=== PATIENT | male | born 1995 | race Caucasian/White ===

== ENCOUNTER 2022-06-22 16:12 | Inpatient (IN) ==
[2022-06-22 16:50] LABS: Basophils # (auto) 0.05 K/uL (0-0.2); Basophils % (auto) 0.6 %; Eosinophils # (auto) 0.05 K/uL (0-0.50); Eosinophils % (auto) 0.6 %; Hematocrit (blood only) 45.8 % (42.0-52.0); Hemoglobin 15.7 g/dl (14.0-18.0); Immature Granulocytes # (auto) 0.02 K/uL (0.01-0.20); Immature Granulocytes % (auto) 0.2 %; Lymphocytes # (auto) 2.71 K/uL (1.2-3.4); Lymphocytes % (auto) 31.6 %; Mean Corpuscular Hemoglobin 30.7 pg (25.0-34.0); Mean Corpuscular Hgb Conc 34.3 g/dL (32.0-36.0); Mean Corpuscular Volume 89.5 fL (80.0-100.0); Mean Platelet Volume 9.9 fL (9.4-12.4); Monocytes # (auto) 0.61 K/uL (0.11-0.59); Monocytes % (auto) 7.1 %; Neutrophils # (auto) 5.13 K/uL (1.40-6.50); Neutrophils % (auto) 59.9 %; Platelet Count 360 K/uL (130-400); RDW Coefficient of Variation 13.6 % (11.5-14.5); RDW Standard Deviation 44.1 fL (36.4-46.3); Red Blood Count 5.12 M/uL (4.70-6.10); White Blood Count 8.57 K/ul (4.8-10.8)
[2022-06-22 16:54] LABS: Appearance Urine Clear (Clear); Bilirubin Urine Negative (Negative); Blood Urine Negative (Negative); Color Urine Yellow; Glucose Urine UA Negative (Negative); Ketones Urine Negative (Negative); Leukocyte Esterase Urine Negative (Negative); Nitrite Urine Negative (Negative); Protein Urine Negative (Negative); Urobilinogen Urine Negative (Negative)
[2022-06-22 17:39] LABS: Albumin Globulin Ratio 1.4 (0.9-2); Albumin Level 4.7 gm/dl (3.4-5.0); Bilirubin,Total 0.5 mg/dl (0.2-1.0); Calcium 9.5 mg/dl (8.5-10.1); Creatinine Clr Calc Pharmacy 175.9 ml/min; Est GFR (African American) 130.1 ml/min; Est GFR (Non-African American) 112.2 ml/min; Globulin 3.3 gm/dl (2.5-4.0); Potassium 3.9 mmol/L (3.5-5.1)
[2022-06-22 17:52] LABS: Amphetamines+Metham, Urine Neg (Neg); Barbiturates, Urine Neg (Neg); Benzodiazepine, Urine Neg (Neg); Cocaine, Urine Neg (Neg); MDMA (Ecstacy), Urine Neg (Neg); Methadone, Urine Neg (Neg); Opiate, Urine Neg (Neg); Phencyclidine, Urine Neg (Neg)
[2022-06-22 18:36] LABS: Acetaminophen < 3 ug/ml (10-30); Salicylate < 3.0 mg/dl (3.0-30)
--- NOTE | 2022-06-22 19:06 | Emergency Department Note ---
History of Present Illness General Chief complaint: Mental Health Evaluation Stated complaint: PSYCHIATRIC CARE Time Seen by Provider: 06/22/22 16:21 History of Present Illness Provider complaint: Mental health evaluation Onset (ago): month(s) 3 Maximum Pain Intensity: 3 27-year-old male presents emergency department for mental health evaluation. Patient reports he has been having more tactile hallucinations telling him to kill himself. Patient reports he feels like maggots are crawling underneath his skin and he keeps having to scratch his skin to peel his skin off. No access to any firearms. No drugs or alcohol. Patient reports he has a diagnosis of schizoaffective disorder and sees a mental health professional in [place] and has been hospitalized for mental health in [place]. Home Medications Medication Instructions Recorded Confirmed Type adalimumab 40 mg/0.8 mL 40 mg subcut .[id number] 03/26/21 06/22/22 History subcutaneous syringe kit (Humira) esomeprazole magnesium 40 mg 40 mg PO DAILY 03/26/21 04/23/21 History capsule,delayed release fluvoxamine 150 mg 300 mg PO HS 03/26/21 04/23/21 History capsule,extended release 24 hr lurasidone 40 mg tablet (Latuda) 40 mg PO PM 03/26/21 06/22/22 History lurasidone 60 mg tablet (Latuda) 120 mg PO PM 03/26/21 06/22/22 History cyclobenzaprine 10 mg tablet 10 mg PO TID PRN muscle spasm #15 04/21/21 04/23/21 Rx tabs naproxen 500 mg tablet 500 mg PO BID PRN pain #20 tabs 04/21/21 04/23/21 Rx benzonatate 100 mg capsule 100 mg PO TID PRN Cough 04/23/21 04/23/21 History etodolac 200 mg capsule 200 mg PO BID PRN pain #20 caps 04/23/21 04/23/21 Rx Fish Oil 1,000 mg PO 4XD 06/22/22 06/22/22 History Allergies Allergy/AdvReac Type Severity Reaction Status Date / Time azithromycin [From Zithromax] Allergy Intermediate Rash Verified 04/23/21 21:27 Past Med/Surg History Medical History Rheumatoid arthritis Schizoaffective disorder Surgical History No significant past surgical history Family History Other Back pain Social History Smoking Status: Never smoker Preferred Language: Barbadian marital status: Single current occupational status: student Feels Safe at Home: Yes Gender Identity: Male Physical Exam Vital Signs Vital Signs - 24 hr 06/22/22 16:14 Temperature 36.8 C Temperature Source Temporal Artery Scan Pulse Rate 80 Respiratory Rate 18 Blood Pressure 148/95 H Blood Pressure Mean 112 Pulse Oximetry 98 Oxygen Delivery Method Room Air Sepsis Recent Fever Within 48 Hours No Sepsis New/Unexplained Change in Mental Status No Sepsis Action Taken by Nursing No Action Required Physical Exam HENT: Exam performed. - Head: Normocephalic and atraumatic. EYES: Conjunctivae and EOM are normal. Right eye exhibits no discharge. Left eye exhibits no discharge. No scleral icterus. NECK: Normal range of motion. Neck supple. No JVD present. ABD: The abdomen is soft. There is no tenderness. NEURO: Motor and sensation grossly intact. SKIN: Skin is warm and dry. He is not diaphoretic. PSYCH: Bizarre affect. Suicidal ideation. Course Course 162: The patient was evaluated in room A5. A complete history and physical exam was performed 1904: Patient medically cleared. Awaiting psychiatric evaluation and placement. 2117: Patient admitted to 3 S. Medical Decision Making Laboratory Data Attestation: I reviewed the patient's lab results. 06/22/22 16:35 06/22/22 16:35 Lab Results 06/22/22 06/22/22 06/22/22 Range/Units 16:30 16:30 16:30 WBC (4.8-10.8) K/ul RBC (4.70-6.10) M/uL Hgb (14.0-18.0) g/dl Hct (42.0-52.0) % MCV (80.0-100.0) fL MCH (25.0-34.0) pg MCHC (32.0-36.0) g/dL RDW Std Deviation (36.4-46.3) fL RDW Coeff of Rene (11.5-14.5) % Plt Count (130-400) K/uL MPV (9.4-12.4) fL Immature Gran % (Auto) % Neut % (Auto) % Lymph % (Auto) % [place] % (Auto) % Eos % (Auto) % Baso % (Auto) % Neut # (Auto) (1.40-6.50) K/uL Lymph # (Auto) (1.2-3.4) K/uL [place] # (Auto) (0.11-0.59) K/uL Eos # (Auto) (0-0.50) K/uL Baso # (Auto) (0-0.2) K/uL Immature Gran # (Auto) (0.01-0.20) K/uL Sodium (136-145) mmol/L Potassium (3.5-5.1) mmol/L Chloride (98-107) mmol/L Carbon Dioxide (21-32) mmol/L Anion Gap (3-11) BUN (6-23) mg/dl Creatinine (0.6-1.4) mg/dl Est Cr Clr Drug Dosing ml/min Est GFR ( Amer) ml/min Est GFR (Non-Af Amer) ml/min BUN/Creatinine Ratio (10-20) Glucose (70-99(Fasting)) mg/dl Calcium (8.5-10.1) mg/dl Total Bilirubin (0.2-1.0) mg/dl AST (13-39) U/L ALT (7-52) U/L Alkaline Phosphatase (34-104) U/L Total Protein (6.0-8.3) gm/dl Albumin (3.4-5.0) gm/dl Globulin (2.5-4.0) gm/dl Albumin/Globulin Ratio (0.9-2) TSH (0.300-4.500) uIu/ml Urine Color Yellow Urine Appearance Clear (Clear) Urine pH 6.0 (4.5-7.5) Ur Specific [place] 1.010 (1.000-1.030) Urine Protein Negative (Negative) Urine Glucose (UA) Negative (Negative) Urine Ketones Negative (Negative) Urine Blood Negative (Negative) Urine Nitrite Negative (Negative) Urine Bilirubin Negative (Negative) Urine Urobilinogen Negative (Negative) Ur Leukocyte Esterase Negative (Negative) Salicylates (3.0-30) mg/dl Urine Opiates Screen Neg (Neg) Ur Methadone, Qual Neg (Neg) Acetaminophen (10-30) ug/ml Urine Barbiturates Neg (Neg) Ur Phencyclidine (PCP) Neg (Neg) U Amphetamin/Meth Scrn Neg (Neg) MDMA (Ecstasy) Screen Neg (Neg) U Benzodiazepines Scrn Neg (Neg) Ur Cocaine Metabolite Neg (Neg) U Marijuana (THC) Screen Neg (Neg) Ethyl Alcohol mg/dL (<10.0) mg/dl SARS-CoV-2, RNA, NAAT NEGATIVE (NEGATIVE) 06/22/22 06/22/22 06/22/22 Range/Units 16:35 16:35 16:35 WBC 8.57 (4.8-10.8) K/ul RBC 5.12 (4.70-6.10) M/uL Hgb 15.7 (14.0-18.0) g/dl Hct 45.8 (42.0-52.0) % MCV 89.5 (80.0-100.0) fL MCH 30.7 (25.0-34.0) pg MCHC 34.3 (32.0-36.0) g/dL RDW Std Deviation 44.1 (36.4-46.3) fL RDW Coeff of Rene 13.6 (11.5-14.5) % Plt Count 360 (130-400) K/uL MPV 9.9 (9.4-12.4) fL Immature Gran % (Auto) 0.2 % Neut % (Auto) 59.9 % Lymph % (Auto) 31.6 % [place] % (Auto) 7.1 % Eos % (Auto) 0.6 % Baso % (Auto) 0.6 % Neut # (Auto) 5.13 (1.40-6.50) K/uL Lymph # (Auto) 2.71 (1.2-3.4) K/uL [place] # (Auto) 0.61 H (0.11-0.59) K/uL Eos # (Auto) 0.05 (0-0.50) K/uL Baso # (Auto) 0.05 (0-0.2) K/uL Immature Gran # (Auto) 0.02 (0.01-0.20) K/uL Sodium 137 (136-145) mmol/L Potassium 3.9 (3.5-5.1) mmol/L Chloride 104 (98-107) mmol/L Carbon Dioxide 27 (21-32) mmol/L Anion Gap 6 (3-11) BUN 15 (6-23) mg/dl Creatinine 0.94 (0.6-1.4) mg/dl Est Cr Clr Drug Dosing 175.9 ml/min Est GFR ( Amer) 130.1 ml/min Est GFR (Non-Af Amer) 112.2 ml/min BUN/Creatinine Ratio 16.0 (10-20) Glucose 93 (70-99(Fasting)) mg/dl Calcium 9.5 (8.5-10.1) mg/dl Total Bilirubin 0.5 (0.2-1.0) mg/dl AST 21 (13-39) U/L ALT 29 (7-52) U/L Alkaline Phosphatase 63 (34-104) U/L Total Protein 8.0 (6.0-8.3) gm/dl Albumin 4.7 (3.4-5.0) gm/dl Globulin 3.3 (2.5-4.0) gm/dl Albumin/Globulin Ratio 1.4 (0.9-2) TSH 1.818 (0.300-4.500) uIu/ml Urine Color Urine Appearance (Clear) Urine pH (4.5-7.5) Ur Specific [place] (1.000-1.030) Urine Protein (Negative) Urine Glucose (UA) (Negative) Urine Ketones (Negative) Urine Blood (Negative) Urine Nitrite (Negative) Urine Bilirubin (Negative) Urine Urobilinogen (Negative) Ur Leukocyte Esterase (Negative) Salicylates (3.0-30) mg/dl Urine Opiates Screen (Neg) Ur Methadone, Qual (Neg) Acetaminophen (10-30) ug/ml Urine Barbiturates (Neg) Ur Phencyclidine (PCP) (Neg) U Amphetamin/Meth Scrn (Neg) MDMA (Ecstasy) Screen (Neg) U Benzodiazepines Scrn (Neg) Ur Cocaine Metabolite (Neg) U Marijuana (THC) Screen (Neg) Ethyl Alcohol mg/dL (<10.0) mg/dl SARS-CoV-2, RNA, NAAT (NEGATIVE) 06/22/22 06/22/22 Range/Units 16:35 16:35 WBC (4.8-10.8) K/ul RBC (4.70-6.10) M/uL Hgb (14.0-18.0) g/dl Hct (42.0-52.0) % MCV (80.0-100.0) fL MCH (25.0-34.0) pg MCHC (32.0-36.0) g/dL RDW Std Deviation (36.4-46.3) fL RDW Coeff of Rene (11.5-14.5) % Plt Count (130-400) K/uL MPV (9.4-12.4) fL Immature Gran % (Auto) % Neut % (Auto) % Lymph % (Auto) % [place] % (Auto) % Eos % (Auto) % Baso % (Auto) % Neut # (Auto) (1.40-6.50) K/uL Lymph # (Auto) (1.2-3.4) K/uL [place] # (Auto) (0.11-0.59) K/uL Eos # (Auto) (0-0.50) K/uL Baso # (Auto) (0-0.2) K/uL Immature Gran # (Auto) (0.01-0.20) K/uL Sodium (136-145) mmol/L Potassium (3.5-5.1) mmol/L Chloride (98-107) mmol/L Carbon Dioxide (21-32) mmol/L Anion Gap (3-11) BUN (6-23) mg/dl Creatinine (0.6-1.4) mg/dl Est Cr Clr Drug Dosing ml/min Est GFR ( Amer) ml/min Est GFR (Non-Af Amer) ml/min BUN/Creatinine Ratio (10-20) Glucose (70-99(Fasting)) mg/dl Calcium (8.5-10.1) mg/dl Total Bilirubin (0.2-1.0) mg/dl AST (13-39) U/L ALT (7-52) U/L Alkaline Phosphatase (34-104) U/L Total Protein (6.0-8.3) gm/dl Albumin (3.4-5.0) gm/dl Globulin (2.5-4.0) gm/dl Albumin/Globulin Ratio (0.9-2) TSH (0.300-4.500) uIu/ml Urine Color Urine Appearance (Clear) Urine pH (4.5-7.5) Ur Specific [place] (1.000-1.030) Urine Protein (Negative) Urine Glucose (UA) (Negative) Urine Ketones (Negative) Urine Blood (Negative) Urine Nitrite (Negative) Urine Bilirubin (Negative) Urine Urobilinogen (Negative) Ur Leukocyte Esterase (Negative) Salicylates < 3.0 L (3.0-30) mg/dl Urine Opiates Screen (Neg) Ur Methadone, Qual (Neg) Acetaminophen < 3 L (10-30) ug/ml Urine Barbiturates (Neg) Ur Phencyclidine (PCP) (Neg) U Amphetamin/Meth Scrn (Neg) MDMA (Ecstasy) Screen (Neg) U Benzodiazepines Scrn (Neg) Ur Cocaine Metabolite (Neg) U Marijuana (THC) Screen (Neg) Ethyl Alcohol mg/dL < 10.0 (<10.0) mg/dl SARS-CoV-2, RNA, NAAT (NEGATIVE) [facility] Narrative 162: The patient was evaluated in room A5. A complete history and physical exam was performed 1904: Patient medically cleared. Awaiting psychiatric evaluation and placement. 2117: Patient admitted to [facility]. Impression & Plan Suicidal ideations, Schizoaffective disorder Discharge Plan Visit Data Chief Complaint: Mental Health Evaluation Stated Complaint: PSYCHIATRIC CARE ED Provider: Ollie Lozada Discharge Problem: Suicidal ideations, Schizoaffective disorder Patient Disposition: Admitted As Inpatient Forms Stand Alone Forms: [facility], Suicide Prevention Resources Prescriptions Prescriptions: No Action cyclobenzaprine 10 mg tablet 10 mg PO TID PRN (Reason: muscle spasm) Qty: 15 0RF naproxen 500 mg tablet 500 mg PO BID PRN (Reason: pain) Qty: 20 0RF benzonatate 100 mg capsule 100 mg PO TID PRN (Reason: Cough) etodolac 200 mg capsule 200 mg PO BID PRN (Reason: pain) Qty: 20 0RF Fish Oil 1,000 mg capsule 1,000 mg PO 4XD Humira 40 mg/0.8 mL Syringe Kit 40 mg SUBCUT .[id number] fluvoxamine [Luvox CR] 150 mg Capsule,Extended Release 24hr 300 mg PO HS Latuda 40 mg Tablet 40 mg PO PM Label Comments: Not taking Rx Instructions: TOTAL DOSE 100 MG--TAKES WITH 60 MG TAB. Latuda 60 mg Tablet 120 mg PO PM Rx Instructions: Total dose 120 mg at hs esomeprazole magnesium 40 mg Capsule,Delayed Release(Dr/Ec) 40 mg PO DAILY Referrals Referrals: PCP,NO [Primary Care Provider] -
[2022-06-22] MEDS ORDERED: ACETAMINOPHEN 325 MG TAB PO PRN (21:54)
[2022-06-22] MEDS ORDERED: SODIUM CHLORIDE 0.65% NA SOLN 45 ML (OCEAN) PRN (21:54)
[2022-06-22] MEDS ORDERED: hydrOXYzine HCl 25 MG TAB PO PRN ×2 (21:54)
[2022-06-22] MEDS ORDERED: BISMUTH SUBSALICYLATE LIQD 236 ML PO PRN (21:54)
[2022-06-22] MEDS ORDERED: ALUMINUM/MAGNESIUM SUSP 30 ML UDC PO PRN (21:54)
[2022-06-22] MEDS ORDERED: MAGNESIUM HYDROXIDE SUSP 30 ML UDC PO PRN (21:54)
[2022-06-22] MEDS ORDERED: LURASIDONE HCL 40 MG TAB PO SCH (22:00)
[2022-06-22] MEDS ORDERED: FLUARIX QUADRIVALENT 0.5 ML SYR IM ONE (23:46)
--- NOTE | 2022-06-23 11:54 | History & Physical ---
Date of Service June 23, 2022 Impression / Recommendations Impression Intelligent, pleasant man with a long history of tactile hallucinations (vermiculation) and fluctuating mood symptoms who reports the best treatment response has been with lurasidone. He has been having passive suicidal thoughts and the nearly irresistible urge to cut the hallucinated insects and maggots out of his skin. (1) Schizoaffective disorder, bipolar type: (2) Vermiculation: (3) Rheumatoid arthritis: Plan Increase lurasidone to 160 mg at suppertime, observing closely for excessive sedation. Cautious trial of low-dose (25 mg) armodafinil in the morning to augment antidepressant effect of lurasidone and to address ADHD symptoms Suicide Risk Level Suicide Risk Level: Moderate (q15 min suicide checks) Risk Factors Assessment Male: Yes : Yes Do You Have Access To A Gun?: No Health Problems: Yes Mental Health Diagnoses: Yes Substance Use Disorders: No Previous Attempt: Yes Family History of Suicide: Yes Previous Psychiatric Hospitalization: Yes Protective Factors Assessment Employed: No Stable Relationships: Yes Supportive Family: Yes Psychiatric History Identifying Data JOSE LEZAMA is a 27-year-old M who currently lives in an apartment with 2 roommates, has a history of Schizoaffective Disorder, Bipolar Type, and was admitted on 06/22/22 21:30 on a 201 voluntary commitment for vermiculation. Chief Complaint "I get these hallucinations of insects and maggots coming out of my skin". History of Present Illness Jose is a [employer] student who was brought in to the ED by one of his professors, whom he's known since he was an adolescent in [place] when the now-professor was his etymology teacher. He reports a 7-year history tactile hallucinations of insects or maggots crawling through his skin and erupting out of his skin. This makes him want to get rid of them by "cutting them out". He realizes that this would represent self-harm, and usually he feels able to resist this urge. Currently, the urge has been becoming increasingly severe over the past 2 weeks and is now nearly impossible for him to resist. He reports "social paranoia" with unfounded suspicions of people he knows, but typically in social settings (as opposed to home). He endorses vague, passive suicidal thoughts primarily relating to ridding himself of these unpleasant experiences. He denies any suicidal plans or intent. He denies homicidal thoughts or any auditory or visual hallucinations. He has had increased sadness, lack of motivation, helplessness, poor concentration, and poor sleep. He does endorse a history of one suicide attempt in 2014 when he tried to force himself to breathe in water. He has had a sleep study in the past, which he says showed obstructive sleep apnea. He was unable to tolerate CPAP but says he's lost 80 pounds since then and doubts he has current sleep disordered breathing. He has an outpatient psychiatrist, Dr. Celis who is the medical laboratory assistant of the bipolar disorder program at the [facility], and therapists through [facility]. He signed ROIs for both. He reports that he has a supportive family but that he prefers that they are not aware of his mental health issues and did not sign an DARNELL for either of them. He has been taking lurasidone for many years now and feels that it has been helpful. He says he and Dr. Celis had recently talked about increasing the dose. The primary limiting factor has been post-dose sedation. He had a past trial of modafinil off-label for ADHD (for which there is considerable published evidence). He thought it did help but that he felt sleepy on it. He doesn't recall if it helped his mood at all (another use for which there is substantial published data). Antidepressants have tended to make his mood cycle into saba. He has been pleasant and cooperative and appears to be a realiable historian who is interested in details of treatment Past Psychiatric History Previous Psych History: Reports symptoms since childhood Current Psychiatric Diagnosis: Schizoaffective disorder Outpatient Services: Currently engaged in telepsychiatric treatment with Dr. Celis at [facility] and with [facility] Previous Psych Admissions: "4 or 5" admissions over a 2-year period in his mid-teens (he doesn't recall the exact years) in [place] Do You Have Access To A Gun?: No History of Previous Suicide Attempt: No Past Medication Trials: Reports antidepressant trials have precipitated saba Past Head Trauma/Neuro History History of Concussion/Seizure: No Allergies Allergy/AdvReac Type Severity Reaction Status Date / Time azithromycin [From Zithromax] Allergy Intermediate Rash Verified 04/23/21 21:27 Home Medications Medication Instructions Recorded Confirmed Type adalimumab 40 mg/0.8 mL 40 mg subcut .[id number] 11/03/21 01/30/23 History subcutaneous syringe kit (Humira) esomeprazole magnesium 40 mg 40 mg PO DAILY 03/26/21 04/23/21 History capsule,delayed release fluvoxamine 150 mg 300 mg PO HS 03/26/21 04/23/21 History capsule,extended release 24 hr lurasidone 40 mg tablet (Latuda) 40 mg PO PM 03/26/21 06/22/22 History lurasidone 60 mg tablet (Latuda) 120 mg PO PM 03/26/21 06/22/22 History cyclobenzaprine 10 mg tablet 10 mg PO TID PRN muscle spasm #15 04/21/21 04/23/21 Rx tabs naproxen 500 mg tablet 500 mg PO BID PRN pain #20 tabs 04/21/21 04/23/21 Rx benzonatate 100 mg capsule 100 mg PO TID PRN Cough 04/23/21 04/23/21 History etodolac 200 mg capsule 200 mg PO BID PRN pain #20 caps 04/23/21 04/23/21 Rx Fish Oil 1,000 mg PO 4XD 06/22/22 06/22/22 History Family History Family History of: Depression, Anxiety, Psychosis/ThoughtDisorder, Suicide Attempts and Suicide Completion Family Mental Health History Comment: both parents have anxiety and depression dad has some symptoms of of psychosis but no diagnosis dad's half brother completed suicide Alcohol History Hx of Alcohol Use Over the Past 12 Months: No AUDIT Total Score: 1 Smoking Use Have You Smoked or Used Tobacco Products in the Last 30 Days: No Smoking Status: Never smoker Substance History Hx of Prescription Med Misuse Over the Past 12 Months: No Hx of Over the Counter Med Misuse Over the Past 12 Months: No Hx of Inhalent Misuse Over the Past 12 Months: No Hx of Organic Substance Use Over the Past 12 Months: No Hx of Illegal Substances/Street Drug Use Over Past 12 Months: No Problems as a Result of Past Substance Use: None Identified Personal History Living Arrangements: Apartment Highest Grade Completed: College Highest Grade Completed Comment: at [employer] 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 Marital Status: Single Beliefs That Will Affect Care: None Current Legal Problems: No Hx Legal Problems: No Patient History Medical History Rheumatoid arthritis Schizoaffective disorder Surgical History No significant past surgical history Family History Other Back pain Social History Smoking Status: Never smoker Preferred Language: Bahamian Communication Ability: Effective Senior Behavioral Scientist Required: No Beliefs That Will Affect Care: None marital status: Single current occupational status: student Feels Safe at Home: Yes Gender Identity: Male Assistive Devices: Glasses Review of Systems Review of Systems: All systems reviewed & are unremarkable except as noted in HPI & below Psychiatric: + depression, + anhedonia, + abnormal sleep pattern, + difficulty concentrating and + tactile hallucinations; no auditory hallucinations and no visual hallucinations Physical Exam Psychiatric: Orientation: alert and oriented x 3 Apperance: appropriately dressed and appropriately groomed Eye Contact: good eye contact Motor Behavior: steady gait and station and no abnormal motor movements Speech: normal rate/rhythm/volume of speech brief, usually monosyllabic, but communicative Affect: + flat affect; + mood not congruent with affect Mood: + depressed mood Thought Process: linear/logical thought process Thought Content: + paranoid and + delusions Suicidal Thoughts: denies suicidal plan and denies suicidal intent passive suicidal thoughts Homicidal Thoughts: denies homicidal thoughts Hallucinations: + tactile hallucinations; no auditory hallucinations and no visual hallucinations Cognition: recent memory grossly intact, remote memory grossly intact and language grossly intact Estimated Intelligence: + above average estimated intelligence Insight: good insight Judgment: good judgement Vital Signs (Past 24 Hours): Last Vital Signs Temp 36.5 C 06/23/22 06:43 Pulse 85 06/23/22 06:44 Resp 16 06/23/22 06:43 BP 117/80 06/23/22 06:44 Pulse Ox 98 06/22/22 16:14 O2 Del Method 06/22/22 16:14 Physical Examination: A physical exam was performed in the ED by Dr. Levin for the purposes of medical clearance. I accept that physical as correct and adequate for the purposes of the inpatient physical exam. Results & Data (U) Laboratory Results Laboratory Results - last 24 hr 06/22/22 06/22/22 06/22/22 16:30 16:30 16:30 WBC RBC Hgb Hct MCV MCH MCHC RDW Std Deviation RDW Coeff of Rene Plt Count MPV Immature Gran % (Auto) Neut % (Auto) Lymph % (Auto) Ralls % (Auto) Eos % (Auto) Baso % (Auto) Neut # (Auto) Lymph # (Auto) Ralls # (Auto) Eos # (Auto) Baso # (Auto) Immature Gran # (Auto) Sodium Potassium Chloride Carbon Dioxide Anion Gap BUN Creatinine Est Cr Clr Drug Dosing Est GFR ( Amer) Est GFR (Non-Af Amer) BUN/Creatinine Ratio Glucose Calcium Total Bilirubin AST ALT Alkaline Phosphatase Total Protein Albumin Globulin Albumin/Globulin Ratio TSH Urine Color Yellow Urine Appearance Clear Urine pH 6.0 Ur Specific Paragon 1.010 Urine Protein Negative Urine Glucose (UA) Negative Urine Ketones Negative Urine Blood Negative Urine Nitrite Negative Urine Bilirubin Negative Urine Urobilinogen Negative Ur Leukocyte Esterase Negative Salicylates Urine Opiates Screen Neg Ur Methadone, Qual Neg Acetaminophen Urine Barbiturates Neg Ur Phencyclidine (PCP) Neg U Amphetamin/Meth Scrn Neg MDMA (Ecstasy) Screen Neg U Benzodiazepines Scrn Neg Ur Cocaine Metabolite Neg U Marijuana (THC) Screen Neg Ethyl Alcohol mg/dL SARS-CoV-2, RNA, NAAT NEGATIVE 06/22/22 06/22/22 06/22/22 16:35 16:35 16:35 WBC 8.57 RBC 5.12 Hgb 15.7 Hct 45.8 MCV 89.5 MCH 30.7 MCHC 34.3 RDW Std Deviation 44.1 RDW Coeff of Rene 13.6 Plt Count 360 MPV 9.9 Immature Gran % (Auto) 0.2 Neut % (Auto) 59.9 Lymph % (Auto) 31.6 Ralls % (Auto) 7.1 Eos % (Auto) 0.6 Baso % (Auto) 0.6 Neut # (Auto) 5.13 Lymph # (Auto) 2.71 Ralls # (Auto) 0.61 H Eos # (Auto) 0.05 Baso # (Auto) 0.05 Immature Gran # (Auto) 0.02 Sodium 137 Potassium 3.9 Chloride 104 Carbon Dioxide 27 Anion Gap 6 BUN 15 Creatinine 0.94 Est Cr Clr Drug Dosing 175.9 Est GFR ( Amer) 130.1 Est GFR (Non-Af Amer) 112.2 BUN/Creatinine Ratio 16.0 Glucose 93 Calcium 9.5 Total Bilirubin 0.5 AST 21 ALT 29 Alkaline Phosphatase 63 Total Protein 8.0 Albumin 4.7 Globulin 3.3 Albumin/Globulin Ratio 1.4 TSH 1.818 Urine Color Urine Appearance Urine pH Ur Specific Paragon Urine Protein Urine Glucose (UA) Urine Ketones Urine Blood Urine Nitrite Urine Bilirubin Urine Urobilinogen Ur Leukocyte Esterase Salicylates Urine Opiates Screen Ur Methadone, Qual Acetaminophen Urine Barbiturates Ur Phencyclidine (PCP) U Amphetamin/Meth Scrn MDMA (Ecstasy) Screen U Benzodiazepines Scrn Ur Cocaine Metabolite U Marijuana (THC) Screen Ethyl Alcohol mg/dL SARS-CoV-2, RNA, NAAT 06/22/22 06/22/22 16:35 16:35 WBC RBC Hgb Hct MCV MCH MCHC RDW Std Deviation RDW Coeff of Rene Plt Count MPV Immature Gran % (Auto) Neut % (Auto) Lymph % (Auto) Ralls % (Auto) Eos % (Auto) Baso % (Auto) Neut # (Auto) Lymph # (Auto) Ralls # (Auto) Eos # (Auto) Baso # (Auto) Immature Gran # (Auto) Sodium Potassium Chloride Carbon Dioxide Anion Gap BUN Creatinine Est Cr Clr Drug Dosing Est GFR ( Amer) Est GFR (Non-Af Amer) BUN/Creatinine Ratio Glucose Calcium Total Bilirubin AST ALT Alkaline Phosphatase Total Protein Albumin Globulin Albumin/Globulin Ratio TSH Urine Color Urine Appearance Urine pH Ur Specific Paragon Urine Protein Urine Glucose (UA) Urine Ketones Urine Blood Urine Nitrite Urine Bilirubin Urine Urobilinogen Ur Leukocyte Esterase Salicylates < 3.0 L Urine Opiates Screen Ur Methadone, Qual Acetaminophen < 3 L Urine Barbiturates Ur Phencyclidine (PCP) U Amphetamin/Meth Scrn MDMA (Ecstasy) Screen U Benzodiazepines Scrn Ur Cocaine Metabolite U Marijuana (THC) Screen Ethyl Alcohol mg/dL < 10.0 SARS-CoV-2, RNA, NAAT Current Inpatient Medications Current Inpatient Medications: Current Inpatient Medications Acetaminophen (Acetaminophen 325 Mg Tab) 650 mg PO Q4H PRN PRN Reason: Headache or Minor Fever Stop: 07/22/22 21:53 Al Hydrox/Mg Hydrox/Simethicone (Aluminum/Magnesium Susp 30 Ml Udc) 30 ml PO Q4H PRN PRN Reason: GI Upset Stop: 07/22/22 21:53 Bismuth Subsalicylate (Bismuth Subsalicylate Liqd 236 Ml) 15 ml PO PRN PRN PRN Reason: Loose Stool Stop: 07/22/22 21:53 Hydroxyzine HCl (Hydroxyzine Hcl 25 Mg Tab) 50 mg PO HSZ PRN PRN Reason: Insomnia Stop: 07/22/22 21:53 Hydroxyzine HCl (Hydroxyzine Hcl 25 Mg Tab) 25 mg PO Q4H PRN PRN Reason: Anxiety Stop: 07/22/22 21:53 Lurasidone HCl (Lurasidone Hcl 40 Mg Tab) 160 mg PO HS KIKA Stop: 07/23/22 21:59 Magnesium Hydroxide (Magnesium Hydroxide Susp 30 Ml Udc) 30 ml PO DAILY PRN PRN Reason: Constipation Stop: 07/22/22 21:53 Non-Formulary Medication (Armodafinil) 0.5 tab PO QAM KIKA Stop: 07/24/22 08:59 Sodium Chloride (Sodium Chloride 0.65% Na Soln 45 Ml ([place])) 1 - 2 sprays NA PRN PRN PRN Reason: Nasal Dryness/Congestion Stop: 07/22/22 21:53
[2022-06-23] MEDS ORDERED: LURASIDONE HCL 40 MG TAB PO SCH ×2 (17:30→22:00)
[2022-06-24] MEDS ORDERED: PROPRANOLOL HCL 10 MG TAB PO PRN (14:55)
[2022-06-24] MEDS ORDERED: IBUPROFEN 800 MG TAB PO PRN (14:58)
[2022-06-24] MEDS: GABAPENTIN 100 MG CAP PO SCH (16:09)
--- NOTE | 2022-06-24 16:42 | Psychiatric Progress Note ---
Date of Service June 24, 2022 Impression / Recommendations Impression 27 yo man with history of ADHD and schizoaffective disorder admitted for worsening tactile hallucinations contributing to urges to cut his skin to remove parasites/worms and SI due to negative impact on his concentration and ability to focus on school. He is deemed in need of psychiatric hospitalization for diagnostic clarification, safety and stabilization, medication management and development of further coping skills. 06/24/22: Some lessening of tactile hallucinations with increased Latuda but experienced some likely akathisia last evening and excessive sedation. Adjust Latuda to later in the evening and adding prn propranolol should akathisia re- occur, he consents to this, reviewed risks of syncope. Discussed alternative options to help with tactile hallucinations and anxiety. He consents to gabape ntin given sciatica and for off-label use fo anxiety and possible benefit for tactile hallucinations (discussed very limited data based on a few case studies and no FDA approval). Discussed medication treatment options in detail. Discussed risks, benefits and alternatives. Reviewed side effects including but not limited to: liver damage, potential for fatal respiratory depression if combined with benzodiazepines, opiods or alcohol. Will hold off on an additional options for ADHD at this time until outside records can be reviewed. (1) Schizoaffective disorder, bipolar type: (2) Vermiculation: (3) Rheumatoid arthritis: (4) Sciatic leg pain: Plan 06/24/22: Start gabapentin 100mg q7 and q14. Propranolol prn due to akathisia concern. Switch Latuda to qhs due to sedation effects. Discontinued armodafinil as non-formulary/unavailable. 06/23/22: Increase lurasidone to 160 mg at suppertime, observing closely for excessive sedation. Cautious trial of low-dose (25 mg) armodafinil in the morning to augment antidepressant effect of lurasidone and to address ADHD symptoms Suicide Risk Level Suicide Risk Level: Moderate (q15 min suicide checks) (endorses passive SI and with depression but denies active SI and willing to let nursing know if he feels unsafe or unable to remain safe) Risk Factors Assessment Male: Yes : Yes Do You Have Access To A Gun?: No Health Problems: Yes Mental Health Diagnoses: Yes Substance Use Disorders: No Previous Attempt: Yes Family History of Suicide: Yes Previous Psychiatric Hospitalization: Yes Protective Factors Assessment Employed: No Stable Relationships: Yes Supportive Family: Yes Interval History Identifying Information JOSE LEZAMA is a 27-year-old M who currently lives in an apartment with 2 roommates, has a history of Schizoaffective Disorder, Bipolar Type, and was admitted on 06/22/22 21:30 on a 201 voluntary commitment for vermiculation and SI. Chief Complaint "My skin feels less intense but it's still there". Review of Systems Sleep Information Total Hours of Sleep: 9.5 Meal Information Percent Meal Consumed - Breakfast: 95 Percent Meal Consumed - Lunch: 100 Percent Meal Consumed - Dinner: 100 Subjective Subjective Patient was seen & assessed and interval progress reviewed with treatment team nursing and social work. Continues to have sense of worms or maggots under his skin but less intense today. Reviewed that unable to try armodafinil as non- formulary. He recalls modafinil helped with his focus but lead to worsened paranoia at doses needed to help with his ADHD. Currently uses low dose Ritalin IR for help with focus on projects but struggles when he has to do late night course work/composition as won't take too close to bedtime due to potential risks with his sleep. He reports significant sciatica pain that limits his ability to walk. [place] very tired after higher dose of Latuda last night and had restless legs for an hour before bed which he experienced with Latuda in the past but it went away after 1 hour last night. Has never tried propranolol. Physical Exam Psychiatric Orientation: alert and oriented x 3 Apperance: appropriately dressed and appropriately groomed Eye Contact: good eye contact Motor Behavior: steady gait and station and no abnormal motor movements Speech: normal rate/rhythm/volume of speech (limited variability) Affect: + flat affect; + mood not congruent with affect Mood: + depressed mood and + anxious mood Thought Process: + concrete thought process Thought Content: + paranoid and + delusions Suicidal Thoughts: denies suicidal plan and denies suicidal intent; + reports suicidal thoughts (passive SI) Homicidal Thoughts: denies homicidal thoughts Hallucinations: + tactile hallucinations; no auditory hallucinations and no visual hallucinations Cognition: recent memory grossly intact, remote memory grossly intact and language grossly intact Estimated Intelligence: + above average estimated intelligence Insight: good insight Judgment: + fair judgement Vital Signs (Past 24 Hours) Last Vital Signs Temp 37 C 06/24/22 06:41 Pulse 82 06/24/22 06:42 Resp 16 02/01/23 06:41 BP 105/77 06/24/22 06:42 Pulse Ox 98 06/22/22 16:14 O2 Del Method 06/22/22 16:14 Results & Data ([facility]) Current Inpatient Medications Current Inpatient Medications: Current Inpatient Medications Acetaminophen (Acetaminophen 325 Mg Tab) 650 mg PO Q4H PRN PRN Reason: Headache or Minor Fever Stop: 07/22/22 21:53 Al Hydrox/Mg Hydrox/Simethicone (Aluminum/Magnesium Susp 30 Ml Udc) 30 ml PO Q4H PRN PRN Reason: GI Upset Stop: 07/22/22 21:53 Bismuth Subsalicylate (Bismuth Subsalicylate Liqd 236 Ml) 15 ml PO PRN PRN PRN Reason: Loose Stool Stop: 07/22/22 21:53 Gabapentin (Gabapentin 100 Mg Cap) 100 mg PO [id number] KIKA Stop: 07/24/22 14:59 Last Admin: 06/24/22 16:09 Dose: 100 mg Hydroxyzine HCl (Hydroxyzine Hcl 25 Mg Tab) 50 mg PO HSZ PRN PRN Reason: Insomnia Stop: 07/22/22 21:53 Hydroxyzine HCl (Hydroxyzine Hcl 25 Mg Tab) 25 mg PO Q4H PRN PRN Reason: Anxiety Stop: 07/22/22 21:53 Ibuprofen (Ibuprofen 800 Mg Tab) 800 mg PO TID PRN PRN Reason: joint pain/stiffness Stop: 07/24/22 14:57 Lurasidone HCl (Lurasidone Hcl 40 Mg Tab) 160 mg PO PM KIKA Stop: 07/24/22 20:59 Magnesium Hydroxide (Magnesium Hydroxide Susp 30 Ml Udc) 30 ml PO DAILY PRN PRN Reason: Constipation Stop: 07/22/22 21:53 Propranolol HCl (Propranolol Hcl 10 Mg Tab) 10 mg PO BID PRN PRN Reason: akathisia/restless legs Stop: 07/24/22 20:59 Sodium Chloride (Sodium Chloride 0.65% Na Soln 45 Ml ([place])) 1 - 2 sprays NA PRN PRN PRN Reason: Nasal Dryness/Congestion Stop: 07/22/22 21:53 Mental Health & Subst Abuse Tx Psychiatrist Name of Psychiatrist: [facility]- Dr. Jose Celis Psychiatrist's Psychiatric Appointment Comment: telehealth Therapist Name of Therapist: Nydia Griffin Therapist's Date of Therapist Appointment: 06/26/2022 Time of Therapist Appointment: 06/26/22 Therapy Appointment Comment: [address], [place] [address] Post Discharge Appointments Primary Care Physician Name Of Family Doctor/PCP: [facility]
[2022-06-24] MEDS: LURASIDONE HCL 40 MG TAB PO SCH (20:57)
[2022-06-25] MEDS: GABAPENTIN 100 MG CAP PO SCH ×2 (06:44→14:50)
[2022-06-25] MEDS: CETIRIZINE HCL 10 MG TABLET PO SCH (10:23)
[2022-06-25] MEDS ORDERED: GABAPENTIN 100 MG CAP PO SCH (14:00)
--- NOTE | 2022-06-25 17:11 | Psychiatric Progress Note ---
Date of Service June 25, 2022 Impression / Recommendations Impression 27 yo man with history of ADHD and schizoaffective disorder admitted for worsening tactile hallucinations contributing to urges to cut his skin to remove parasites/worms and SI due to negative impact on his concentration and ability to focus on school. He is deemed in need of psychiatric hospitalization for diagnostic clarification, safety and stabilization, medication management and development of further coping skills. 06/25/22: Making progress, no tactile hallucinations today which is helping his mood to improve. Interested in dose titration of gabapentin as this is helping with nerve pain and anxiety. Agrees to fasting labs tomorrow morning for lipid panel and glucose monitoring given increase of Latuda. Continue to monitor for akathisia. (1) Schizoaffective disorder, bipolar type: (2) Vermiculation: (3) Rheumatoid arthritis: (4) Sciatic leg pain: Plan 06/25/22: Increase gabapentin to 200mg q7 and q14. Continue with Latuda. 06/24/22: Start gabapentin 100mg q7 and q14. Propranolol prn due to akathisia concern. Switch Latuda to qhs due to sedation effects. Discontinued armodafinil as non-formulary/unavailable. 06/23/22: Increase lurasidone to 160 mg at suppertime, observing closely for excessive sedation. Cautious trial of low-dose (25 mg) armodafinil in the morning to augment antidepressant effect of lurasidone and to address ADHD symptoms Suicide Risk Level Suicide Risk Level: Moderate (q15 min suicide checks) (depression but lessening of SI, hallucinations lessening and willing to let nursing know if he feels unsafe or unable to remain safe) Risk Factors Assessment Male: Yes : Yes Do You Have Access To A Gun?: No Health Problems: Yes Mental Health Diagnoses: Yes Substance Use Disorders: No Previous Attempt: Yes Family History of Suicide: Yes Previous Psychiatric Hospitalization: Yes Protective Factors Assessment Employed: No Stable Relationships: Yes Supportive Family: Yes Interval History Identifying Information JOSE LEZAMA is a 27-year-old M who currently lives in an apartment with 2 roommates, has a history of Schizoaffective Disorder, Bipolar Type, and was admitted on 06/22/22 21:30 on a 201 voluntary commitment for vermiculation and SI. Chief Complaint "The Latuda is working well". Review of Systems Sleep Information Total Hours of Sleep: 7.5 Meal Information Percent Meal Consumed - Breakfast: 95 Percent Meal Consumed - Lunch: 100 Percent Meal Consumed - Dinner: 100 Subjective Subjective Patient was seen & assessed and interval progress reviewed with treatment team nursing and social work. Attending groups. Feels his nerve pain has improved a bit. Significant lessening of tactile hallucinations. Liked the later time administration of Latuda. Feels the higher dose is helping. No side effects from the gabapentin, he'd like to increase the dose to help further with his sciatica pain. Physical Exam Psychiatric Orientation: alert and oriented x 3 Apperance: appropriately dressed and appropriately groomed Eye Contact: good eye contact Motor Behavior: steady gait and station and no abnormal motor movements Speech: normal rate/rhythm/volume of speech (limited variability) Affect: + flat affect Mood: + depressed mood and + anxious mood Thought Process: + concrete thought process Thought Content: reality based without delusions Suicidal Thoughts: denies suicidal thoughts Homicidal Thoughts: denies homicidal thoughts Hallucinations: no auditory hallucinations, no visual hallucinations and no tactile hallucinations Cognition: recent memory grossly intact, remote memory grossly intact and language grossly intact Estimated Intelligence: + above average estimated intelligence Insight: good insight Judgment: + fair judgement Vital Signs (Past 24 Hours) Last Vital Signs Temp 36.6 C 06/25/22 06:37 Pulse 85 06/25/22 06:38 Resp 16 06/25/22 06:37 BP 115/79 06/25/22 06:38 Pulse Ox 98 06/22/22 16:14 O2 Del Method 06/22/22 16:14 Results & Data ([facility]) Current Inpatient Medications Current Inpatient Medications: Current Inpatient Medications Acetaminophen (Acetaminophen 325 Mg Tab) 650 mg PO Q4H PRN PRN Reason: Headache or Minor Fever Stop: 07/22/22 21:53 Al Hydrox/Mg Hydrox/Simethicone (Aluminum/Magnesium Susp 30 Ml Udc) 30 ml PO Q4H PRN PRN Reason: GI Upset Stop: 07/22/22 21:53 Bismuth Subsalicylate (Bismuth Subsalicylate Liqd 236 Ml) 15 ml PO PRN PRN PRN Reason: Loose Stool Stop: 07/22/22 21:53 Cetirizine HCl (Cetirizine Hcl 10 Mg Tablet) 10 mg PO QAM KIKA Stop: 07/25/22 10:14 Last Admin: 06/25/22 10:23 Dose: 10 mg Gabapentin (Gabapentin 100 Mg Cap) 200 mg PO [id number] KIKA Stop: 07/25/22 14:14 Last Admin: 06/25/22 14:50 Dose: 200 mg Hydroxyzine HCl (Hydroxyzine Hcl 25 Mg Tab) 50 mg PO HSZ PRN PRN Reason: Insomnia Stop: 07/22/22 21:53 Hydroxyzine HCl (Hydroxyzine Hcl 25 Mg Tab) 25 mg PO Q4H PRN PRN Reason: Anxiety Stop: 07/22/22 21:53 Ibuprofen (Ibuprofen 800 Mg Tab) 800 mg PO TID PRN PRN Reason: joint pain/stiffness Stop: 07/24/22 14:57 Lurasidone HCl (Lurasidone Hcl 40 Mg Tab) 160 mg PO PM KIKA Stop: 07/24/22 20:59 Last Admin: 06/24/22 20:57 Dose: 160 mg Magnesium Hydroxide (Magnesium Hydroxide Susp 30 Ml Udc) 30 ml PO DAILY PRN PRN Reason: Constipation Stop: 07/22/22 21:53 Propranolol HCl (Propranolol Hcl 10 Mg Tab) 10 mg PO BID PRN PRN Reason: akathisia/restless legs Stop: 07/24/22 20:59 Sodium Chloride (Sodium Chloride 0.65% Na Soln 45 Ml ([place])) 1 - 2 sprays NA PRN PRN PRN Reason: Nasal Dryness/Congestion Stop: 07/22/22 21:53 Mental Health & Subst Abuse Tx Psychiatrist Name of Psychiatrist: [facility]- Dr. Jose Celis Psychiatrist's Psychiatric Appointment Comment: telehealth Therapist Name of Therapist: Nydia Griffin Therapist's Date of Therapist Appointment: 06/30/2022 Time of Therapist Appointment: 5pm Therapy Appointment Comment: [address] [place] [address] Post Discharge Appointments Primary Care Physician Name Of Family Doctor/PCP: [facility] - Dr. Waters [facility] Date of Future Appointment with PCP: 06/30/21 Time of Appointment with PCP: 10:45 AM Provider Appointment Comment: [facility] Specialist Name of Specialist: [facility] - Dr. Caraballo Phone Number for Specialist: [phone] Date of Appointment with Specialist: 10/08/22 Time of Appointment with Specialist: 12:45 PM Specialty Appointment Comment: [id number] [facility] [place], [facility]
[2022-06-25] MEDS: LURASIDONE HCL 40 MG TAB PO SCH (21:20)
[2022-06-26] MEDS: GABAPENTIN 100 MG CAP PO SCH ×2 (06:41→14:00)
[2022-06-26] MEDS: CETIRIZINE HCL 10 MG TABLET PO SCH (08:33)
--- NOTE | 2022-06-26 12:44 | Psychiatric Progress Note ---
Date of Service June 26, 2022 Impression / Recommendations Impression 27 yo man with history of ADHD and schizoaffective disorder admitted for worsening tactile hallucinations contributing to urges to cut his skin to remove parasites/worms and SI due to negative impact on his concentration and ability to focus on school. He is deemed in need of psychiatric hospitalization for diagnostic clarification, safety and stabilization, medication management and development of further coping skills. 06/26/22: Ongoing progress, no tactile hallucinations and mood improving. Continuing to monitor Latuda to ensure no worsening of akathisia, for now stable on higher dose. Tolerating higher dose of gabapentin and finding helpful, hopes to be able to exercise more now that he doesn't have sciatica pain interfering with walking. Fasting glucose and lipid panel all within normal limits. (1) Schizoaffective disorder, bipolar type: (2) Vermiculation: (3) Rheumatoid arthritis: (4) Sciatic leg pain: Plan 06/26/22: Continue current medications and tx plan. 06/25/22: Increase gabapentin to 200mg q7 and q14. Continue with Latuda. 06/24/22: Start gabapentin 100mg q7 and q14. Propranolol prn due to akathisia concern. Switch Latuda to qhs due to sedation effects. Discontinued armodafinil as non-formulary/unavailable. 06/23/22: Increase lurasidone to 160 mg at suppertime, observing closely for excessive sedation. Cautious trial of low-dose (25 mg) armodafinil in the morning to augment antidepressant effect of lurasidone and to address ADHD symptoms Suicide Risk Level Suicide Risk Level: Moderate (q15 min suicide checks) (depression but lessening of SI, hallucinations lessening and willing to let nursing know if he feels unsafe or unable to remain safe) Risk Factors Assessment Male: Yes : Yes Do You Have Access To A Gun?: No Health Problems: Yes Mental Health Diagnoses: Yes Substance Use Disorders: No Previous Attempt: Yes Family History of Suicide: Yes Previous Psychiatric Hospitalization: Yes Protective Factors Assessment Employed: No Stable Relationships: Yes Supportive Family: Yes Interval History Identifying Information JOSE LEZAMA is a 27-year-old M who currently lives in an apartment with 2 roommates, has a history of Schizoaffective Disorder, Bipolar Type, and was admitted on 06/22/22 21:30 on a 201 voluntary commitment for vermiculation and SI. Chief Complaint "I'm doing well". Review of Systems Sleep Information Total Hours of Sleep: 6.5 Meal Information Percent Meal Consumed - Breakfast: 80 Percent Meal Consumed - Lunch: 100 Percent Meal Consumed - Dinner: 90 Subjective Subjective Patient was seen & assessed and interval progress reviewed with treatment team nursing and social work. No tactile hallucinations. Had some mild akathisia last night but lasted only about 30 minutes and did not require prn propranolol. Less sciatica pain and denies any side effects from gabapentin. Has support meeting today. Reviewed external records listing [employer] use and he confirms he has not taken this in about one year. Mood improving-able to discuss friends upcoming concerts and his [employer] concert showcase in August. Reviewed labwork results. Physical Exam Psychiatric Orientation: alert and oriented x 3 Apperance: appropriately dressed and appropriately groomed Eye Contact: good eye contact Motor Behavior: steady gait and station and no abnormal motor movements Speech: normal rate/rhythm/volume of speech (limited variability) Affect: + flat affect Mood: + depressed mood and + anxious mood Thought Process: + concrete thought process Thought Content: reality based without delusions Suicidal Thoughts: denies suicidal thoughts Homicidal Thoughts: denies homicidal thoughts Hallucinations: no auditory hallucinations, no visual hallucinations and no tactile hallucinations Cognition: recent memory grossly intact, remote memory grossly intact and language grossly intact Estimated Intelligence: + above average estimated intelligence Insight: good insight Judgment: + fair judgement Vital Signs (Past 24 Hours) Last Vital Signs Temp 36.6 C 06/26/22 06:43 Pulse 87 06/26/22 06:43 Resp 16 06/26/22 06:43 BP 110/76 06/26/22 06:43 Pulse Ox 98 06/22/22 16:14 O2 Del Method 06/22/22 16:14 Results & Data ([facility]) Laboratory Results Laboratory Results - last 24 hr 06/26/22 08:00 Fasting Glucose 95 Triglycerides 72 Cholesterol 158 LDL Cholesterol, Calc 91 VLDL Cholesterol, Calc 14 HDL Cholesterol 53 Cholesterol/HDL Ratio 3.0 Current Inpatient Medications Current Inpatient Medications: Current Inpatient Medications Acetaminophen (Acetaminophen 325 Mg Tab) 650 mg PO Q4H PRN PRN Reason: Headache or Minor Fever Stop: 07/22/22 21:53 Al Hydrox/Mg Hydrox/Simethicone (Aluminum/Magnesium Susp 30 Ml Udc) 30 ml PO Q4H PRN PRN Reason: GI Upset Stop: 07/22/22 21:53 Bismuth Subsalicylate (Bismuth Subsalicylate Liqd 236 Ml) 15 ml PO PRN PRN PRN Reason: Loose Stool Stop: 07/22/22 21:53 Cetirizine HCl (Cetirizine Hcl 10 Mg Tablet) 10 mg PO QAM KIKA Stop: 07/25/22 10:14 Last Admin: 06/26/22 08:33 Dose: Not Given Gabapentin (Gabapentin 100 Mg Cap) 200 mg PO [id number] KIKA Stop: 07/25/22 14:14 Last Admin: 06/26/22 06:41 Dose: 200 mg Hydroxyzine HCl (Hydroxyzine Hcl 25 Mg Tab) 50 mg PO HSZ PRN PRN Reason: Insomnia Stop: 07/22/22 21:53 Hydroxyzine HCl (Hydroxyzine Hcl 25 Mg Tab) 25 mg PO Q4H PRN PRN Reason: Anxiety Stop: 07/22/22 21:53 Ibuprofen (Ibuprofen 800 Mg Tab) 800 mg PO TID PRN PRN Reason: joint pain/stiffness Stop: 07/24/22 14:57 Lurasidone HCl (Lurasidone Hcl 40 Mg Tab) 160 mg PO PM KIKA Stop: 07/24/22 20:59 Last Admin: 06/25/22 21:20 Dose: 160 mg Magnesium Hydroxide (Magnesium Hydroxide Susp 30 Ml Udc) 30 ml PO DAILY PRN PRN Reason: Constipation Stop: 07/22/22 21:53 Propranolol HCl (Propranolol Hcl 10 Mg Tab) 10 mg PO BID PRN PRN Reason: akathisia/restless legs Stop: 07/24/22 20:59 Sodium Chloride (Sodium Chloride 0.65% Na Soln 45 Ml ([place])) 1 - 2 sprays NA PRN PRN PRN Reason: Nasal Dryness/Congestion Stop: 07/22/22 21:53 Mental Health & Subst Abuse Tx Psychiatrist Name of Psychiatrist: [facility]- Dr. Jose Celis Psychiatrist's Date Of Appointment With Psychiatric Provider: 07/10/22 Time of Appointment with Psychiatrist: 5:20 PM Psychiatric Appointment Comment: telehealth Therapist Name of Therapist: Nydia Griffin Therapist's Date of Therapist Appointment: 06/30/2022 Time of Therapist Appointment: 5pm Therapy Appointment Comment: [address] [facility] [place] [address] Post Discharge Appointments Primary Care Physician Name Of Family Doctor/PCP: [facility] - Dr. Waters [facility] Date of Future Appointment with PCP: 06/30/21 Time of Appointment with PCP: 10:45 AM Provider Appointment Comment: [address] [facility] [place], [place] Specialist Name of Specialist: [facility] - Dr. Caraballo Phone Number for Specialist: [phone] Date of Appointment with Specialist: 10/08/22 Time of Appointment with Specialist: 12:45 PM Specialty Appointment Comment: [id number] [facility] [place]
[2022-06-26] MEDS: LURASIDONE HCL 40 MG TAB PO SCH (21:13)
[2022-06-27] MEDS: GABAPENTIN 100 MG CAP PO SCH ×2 (06:18→14:09)
[2022-06-27] MEDS: CETIRIZINE HCL 10 MG TABLET PO SCH (08:25)
--- NOTE | 2022-06-27 09:18 | Discharge Summary ---
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 He reports a 7-year history tactile hallucinations of insects or maggots crawling through his skin and erupting out of his skin. This makes him want to get rid of them by "cutting them out". He realizes that this would represent self-harm, and usually he feels able to resist this urge. Currently, the urge has been becoming increasingly severe over the past 2 weeks and is now nearly impossible for him to resist. He reports "social paranoia" with unfounded suspicions of people he knows, but typically in social settings (as opposed to home). He endorses vague, passive suicidal thoughts primarily relating to ridding himself of these unpleasant experiences. He denies any suicidal plans or intent. He denies homicidal thoughts or any auditory or visual hallucinations. He has had increased sadness, lack of motivation, helplessness, poor concentration, and poor sleep. He does endorse a history of one suicide attempt in 2015 when he tried to force himself to breathe in water. He has had a sleep study in the past, which he says showed obstructive sleep apnea. He was unable to tolerate CPAP but says he's lost 80 pounds since then and doubts he has current sleep disordered breathing. He has an outpatient psychiatrist, Dr. Celis who is the nuclear medical technologist of the bipolar disorder program at the [facility], and therapists through [facility]. He signed ROIs for both. He reports that he has a supportive family but that he prefers that they are not aware of his mental health issues and did not sign an DARNELL for either of them. He has been taking lurasidone for many years now and feels that it has been helpful. He says he and Dr. Celis had recently talked about increasing the dose. The primary limiting factor has been post-dose sedation. He had a past trial of modafinil off-label for ADHD (for which there is considerable published evidence). He thought it did help but that he felt sleepy on it. He doesn't recall if it helped his mood at all (another use for which there is substantial published data). Antidepressants have tended to make his mood cycle into saba. 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 Principal Diagnosis Schizoaffective Disorder Psychiatric Data See daily stay summary. In short, patient was engaged with the social/ther apeutic milieu of the unit, safety was maintained and the patient was cooperative with care. Medication changes included titration of Latuda to 160mg HS and initiation of gabapentin for sciatica pain and off-label for anxiety and they tolerated this well. Of note he reported he is no longer taking Luvox, and has not for many months, which was reported as an active medication on his outpatient psychiatrist records. He did not require any Ritalin during admission, he uses this in the outpatient setting at times to help with ADHD symptoms, reviewed possibility this could contribute to symptoms of psychosis, he will continue to monitor this closely. His tactile hallucinations resolved after the dose titration of Latuda. He had a two brief episodes (<60 minutes) of akathisia in his legs after the dose increase and was provided with propranolol 10mg BID prn for after discharge in case akathisia worsens. Labs of fasting glucose and fasting lipid profile were preformed and were normal. A support session was held and safety plan was completed prior to discharge. He actively and insightfully participated in safety planning and in discussions about ways to seek support and recognizing warning signs and utilizing coping skills. Reviewed mobile apps that could be used for additional ways to have their safety plan and contacts easily available should thoughts of SI re-emerge in the future. Reviewed importance of seeking emergency care should SI intensify, worsen or should they feel unsafe in the future which they agree to do. On the day of discharge he stated his mood was "pretty good" and remained future-oriented including seeing his friends, doing laundry, relaxing and attending a friend's recital and engaging in aftercare appointments for psychiatry, therapy and [employer] student care and advocacy. Day of Discharge Assessment Today the patient voices readiness for discharge. They note improvement in mood and anxiety. They deny thoughts of harm to self or others. Thoughts are organized and they are clinically improved from admission. There is no evidence of psychosis, he no longer has any tactile hallucinations. They improved in the hospital with support and medication adjustments. They agree to take medications as prescribed and keep follow-up appointments. At the time of the discharge they are deemed to be stable and appropriate for outpatient level of care. They are not deemed to be at imminent risk of harm to self or others. They are aware of emergency and crisis services. Knows to call 911 or go to nearest emergency care center if in a crisis which cannot be handled as an outpatient. Transition of Care Transition Of Care Record: was reviewed with the patient Advance Directives Advance Directives Information Provided: Yes Advance Directives: No Mental Health Advance Directive: No Advance Directives on File: No Living Will: No Power of Envelope Machine Operator: No Advance Directives Reason:: Declines as Mental Health Visit. Suicide Risk Level Suicide Risk Level Comments: Acute risk is low given improvement in mood and denial of SI, lack of access to lethal means, plan to avoid substance use, hopefulness, improvement in psychosis. Chronic risk is moderate given multiple non-modifiable risk factors: psychiatric co-morbid diagnoses, prior attempt, prior psychiatric hospitalizations, mood disorder, schizophrenia, family history of by suicide but also with protective factors including employed/student, good social support, sense of responsibility to family and social supports, outpatient care in place, positive coping skills, positive problem solving, capacity to establish therapeutic alliance, willingness to engage with treatment, capacity for self-observation. Counseled on ways to reduce acute and chronic risk including engaging with outpatient providers, using safety plan if needed, utilizing supports, taking medication, and using coping skills. Modifiable risk factors of psychosis and SI were addressed during hospitalization through development of new coping skills, support meeting, safety planning, and medication adjustments. Risk Factors Assessment Male: Yes : Yes Do You Have Access To A Gun?: No Health Problems: Yes Mental Health Diagnoses: Yes Substance Use Disorders: No Previous Attempt: Yes Family History of Suicide: Yes Previous Psychiatric Hospitalization: Yes Hopelessness: No Protective Factors Assessment Employed: No Stable Relationships: Yes Supportive Family: Yes Good Rapport with Provider: Yes Discharge Data Lab Results 06/22/22 06/22/22 06/22/22 16:30 16:30 16:30 WBC RBC Hgb Hct MCV MCH MCHC RDW Std Deviation RDW Coeff of Rene Plt Count MPV Immature Gran % (Auto) Neut % (Auto) Lymph % (Auto) [place] % (Auto) Eos % (Auto) Baso % (Auto) Neut # (Auto) Lymph # (Auto) [place] # (Auto) Eos # (Auto) Baso # (Auto) Immature Gran # (Auto) Sodium Potassium Chloride Carbon Dioxide Anion Gap BUN Creatinine Est Cr Clr Drug Dosing Est GFR ( Amer) Est GFR (Non-Af Amer) BUN/Creatinine Ratio Glucose Fasting Glucose Calcium Total Bilirubin AST ALT Alkaline Phosphatase Total Protein Albumin Globulin Albumin/Globulin Ratio Triglycerides Cholesterol LDL Cholesterol, Calc VLDL Cholesterol, Calc HDL Cholesterol Cholesterol/HDL Ratio TSH Urine Color Yellow Urine Appearance Clear Urine pH 6.0 Ur Specific Zanoni 1.010 Urine Protein Negative Urine Glucose (UA) Negative Urine Ketones Negative Urine Blood Negative Urine Nitrite Negative Urine Bilirubin Negative Urine Urobilinogen Negative Ur Leukocyte Esterase Negative Salicylates Urine Opiates Screen Neg Ur Methadone, Qual Neg Acetaminophen Urine Barbiturates Neg Ur Phencyclidine (PCP) Neg U Amphetamin/Meth Scrn Neg MDMA (Ecstasy) Screen Neg U Benzodiazepines Scrn Neg Ur Cocaine Metabolite Neg U Marijuana (THC) Screen Neg Ethyl Alcohol mg/dL SARS-CoV-2, RNA, NAAT NEGATIVE 06/22/22 06/22/22 06/22/22 16:35 16:35 16:35 WBC 8.57 RBC 5.12 Hgb 15.7 Hct 45.8 MCV 89.5 MCH 30.7 MCHC 34.3 RDW Std Deviation 44.1 RDW Coeff of Rene 13.6 Plt Count 360 MPV 9.9 Immature Gran % (Auto) 0.2 Neut % (Auto) 59.9 Lymph % (Auto) 31.6 [place] % (Auto) 7.1 Eos % (Auto) 0.6 Baso % (Auto) 0.6 Neut # (Auto) 5.13 Lymph # (Auto) 2.71 [place] # (Auto) 0.61 H Eos # (Auto) 0.05 Baso # (Auto) 0.05 Immature Gran # (Auto) 0.02 Sodium 137 Potassium 3.9 Chloride 104 Carbon Dioxide 27 Anion Gap 6 BUN 15 Creatinine 0.94 Est Cr Clr Drug Dosing 175.9 Est GFR ( Amer) 130.1 Est GFR (Non-Af Amer) 112.2 BUN/Creatinine Ratio 16.0 Glucose 93 Fasting Glucose Calcium 9.5 Total Bilirubin 0.5 AST 21 ALT 29 Alkaline Phosphatase 63 Total Protein 8.0 Albumin 4.7 Globulin 3.3 Albumin/Globulin Ratio 1.4 Triglycerides Cholesterol LDL Cholesterol, Calc VLDL Cholesterol, Calc HDL Cholesterol Cholesterol/HDL Ratio TSH 1.818 Urine Color Urine Appearance Urine pH Ur Specific Z[place]oni Urine Protein Urine Glucose (UA) Urine Ketones Urine Blood Urine Nitrite Urine Bilirubin Urine Urobilinogen Ur Leukocyte Esterase Salicylates Urine Opiates Screen Ur Methadone, Qual Acetaminophen Urine Barbiturates Ur Phencyclidine (PCP) U Amphetamin/Meth Scrn MDMA (Ecstasy) Screen U Benzodiazepines Scrn Ur Cocaine Metabolite U Marijuana (THC) Screen Ethyl Alcohol mg/dL SARS-CoV-2, RNA, NAAT 06/22/22 06/22/22 06/26/22 16:35 16:35 08:00 WBC RBC Hgb Hct MCV MCH MCHC RDW Std Deviation RDW Coeff of Rene Plt Count MPV Immature Gran % (Auto) Neut % (Auto) Lymph % (Auto) [place] % (Auto) Eos % (Auto) Baso % (Auto) Neut # (Auto) Lymph # (Auto) [place] # (Auto) Eos # (Auto) Baso # (Auto) Immature Gran # (Auto) Sodium Potassium Chloride Carbon Dioxide Anion Gap BUN Creatinine Est Cr Clr Drug Dosing Est GFR ( Amer) Est GFR (Non-Af Amer) BUN/Creatinine Ratio Glucose Fasting Glucose 95 Calcium Total Bilirubin AST ALT Alkaline Phosphatase Total Protein Albumin Globulin Albumin/Globulin Ratio Triglycerides 72 Cholesterol 158 LDL Cholesterol, Calc 91 VLDL Cholesterol, Calc 14 HDL Cholesterol 53 Cholesterol/HDL Ratio 3.0 TSH Urine Color Urine Appearance Urine pH Ur Specific [place] Urine Protein Urine Glucose (UA) Urine Ketones Urine Blood Urine Nitrite Urine Bilirubin Urine Urobilinogen Ur Leukocyte Esterase Salicylates < 3.0 L Urine Opiates Screen Ur Methadone, Qual Acetaminophen < 3 L Urine Barbiturates Ur Phencyclidine (PCP) U Amphetamin/Meth Scrn MDMA (Ecstasy) Screen U Benzodiazepines Scrn Ur Cocaine Metabolite U Marijuana (THC) Screen Ethyl Alcohol mg/dL < 10.0 SARS-CoV-2, RNA, NAAT Hospital Course (1) Schizoaffective disorder, bipolar type: (2) Vermiculation: (3) Rheumatoid arthritis: (4) Sciatic leg pain: Plan 06/26/22: Continue current medications and tx plan. 06/25/22: Increase gabapentin to 200mg q7 and q14. Continue with Latuda. 06/24/22: Start gabapentin 100mg q7 and q14. Propranolol prn due to akathisia concern. Switch Latuda to qhs due to sedation effects. Discontinued armodafinil as non-formulary/unavailable. 06/23/22: Increase lurasidone to 160 mg at suppertime, observing closely for excessive sedation. Cautious trial of low-dose (25 mg) armodafinil in the morning to augment antidepressant effect of lurasidone and to address ADHD symptoms Mental Health & Subst Abuse Tx Psychiatrist Name of Psychiatrist: [facility]- Dr. Jose Celis Psychiatrist's Date Of Appointment With Psychiatric Provider: 07/10/22 Time of Appointment with Psychiatrist: 5:20 PM Psychiatric Appointment Comment: telehealth Therapist Name of Therapist: Nydia Griffin Therapist's Date of Therapist Appointment: 06/30/2022 Time of Therapist Appointment: 5pm Therapy Appointment Comment: [address] [place] [facility] [place] [address] Post Discharge Appointments Primary Care Physician Name Of Family Doctor/PCP: Kle[facility] Lozano - Dr. Waters Primary [facility] Date of Future Appointment with PCP: 06/30/21 Time of Appointment with PCP: 10:45 AM Provider App[facility]ment [facility] [address] [facility] Name of Specialist: [facility] - Dr. Caraballo Phone Number for Specialist: [phone] Date of Appointment with Specialist: 10/08/22 Time of Appointment with Specialist: 12:45 PM Specialty Appointment Comment: [id number] [facility] Other #1: Name of Aftercare Appointment: Student Care and Advocacy - Suzi Phone Number of Aftercare Appointment: [phone] Date of Aftercare Appointment: 06/30/22 Time of Aftercare Appointment: 1:00 PM Aftercare Appointment Comment: Please check you [employer] email for link. Discharge Plan Discharge Items Patient Disposition: Home - Self-Care Reason For Visit: SCHIZO-AFFECTIVE DISORDER Discharge Diagnosis: Schizoaffective disorder Activity: Resume your previous activity Non-emergency contact: Primary Care Provider, Psychiatrist and Therapist Call non-emergency contact if: you have any medication questions and your symptoms worsen Follow-up/Referrals: PCP,NO [Primary Care Provider] - Diet: Regular Addtl Attending Provider Instructions: Optional mobile apps: -Suicide safety plan -Virtual Hope Box SPECIAL CARE INSTRUCTIONS: 1. Follow through with your scheduled aftercare appointments. If unable to keep an appointment, please call to reschedule. 2. Take your medication only as prescribed. Medication should not be changed or stopped without the approval of your doctor. In the event of worsening symptoms or concerns about side effects, contact your doctor immediately. 3. Utilize new healthy coping skills, anger management skills, and stress management skills learned during your hospitalization. Journal feelings and process them with a support person. Identify stressors or situations that may result in relapse, deterioration or inappropriate behaviors and develop a plan to deal with those issues. 4. If your coping skills are ineffective and you are in crisis, contact your outpatient providers for direction. If unable to reach your providers, please call the [facility] CRISIS LINE AT , go to the [facility] walk-in center at [address], [address], [place], or go to the closest Emergency Room. 5. Avoid alcohol and un-prescribed drugs. 6. You have been provided with the Mental Health Advance Directives Pamphlet for your review. 7. Your condition is stable for discharge to outpatient level of care, but recovery is an ongoing process. Ifthoughts to harm yourself or others return, follow the safety plan developed during your stay. Planning for a safe return home includes securing weapons. Our treatment team recommends weaponsbe removed from the home until your outpatient provider reassesses your progress. In rare cases where the items themselvescannot be removed, guns and ammunitionshould be secured separatelyand keys stored by a reliable personoutside of the home. If you were admitted on an involuntary commitment, the police or other legal authorities may be involved in this process. AFTERCARE APPOINTMENTS: * Please call your insurance company prior to your scheduled appointment to confirm your aftercare providers are covered. Take your insurance information to your appointments. WHO TO CALL AND WHEN: Medical Emergencies: For questions or emergencies related to your hospital stay, please contact the Inpatient Behavioral Health Unit at [phone]. A turn sewer is on-call 14/12 for the Behavioral Health Unit for emergencies At any time you feel your situation is an emergency, you may also call 911 immediately. Pending Studies at Discharge: No Stand-Alone Forms: My [facility] Medications and DC Order Prescriptions: New propranolol 10 mg Tablet 10 mg PO BID PRN (Reason: akathisia ) 30 Days Qty: 30 0RF gabapentin 100 mg Capsule 200 mg PO [id number] 30 Days Qty: 120 0RF lurasidone [Latuda] 40 mg Tablet 160 mg PO PM 30 Days Qty: 120 0RF Continued naproxen 500 mg tablet 500 mg PO BID PRN (Reason: pain) Qty: 20 0RF Fish Oil 1,000 mg capsule 1,000 mg PO 4XD Humira 40 mg/0.8 mL Syringe Kit 40 mg [id number] Discontinued lurasidone [Latuda] 60 mg Tablet 120 mg PO PM Rx Instructions: Total dose 120 mg at hs Discharge Orders: Discharge Order (Routine); Ordered 06/27/22 Ordered By: Bronwyn Deleon Admission Data Admit Date/Time: 06/22/22 21:30 Attending Provider: Bronwyn Deleon Admit Provider: Kristian Arroyo Primary Care Provider: PCP,NO Other Interventions: Discharge Summary Assessment (RN) Last Done: 06/27/22 14:15 Coding Level of Care Code 12819 D/C day mgmt > 30 min Diagnoses Schizoaffective disorder, bipolar type F25.0 Vermiculation R19.2 Rheumatoid arthritis M06.9 Sciatic leg pain M54.30 Time Spent (min) 40
== END 2022-06-27 15:10 | disposition home or self-care (01) | DRG 885 ==
LOC: ED 16:12 → 3S 21:30 → SUATTDRO 21:30 → 3S 06-24 18:58

== ENCOUNTER 2022-11-16 17:09 | Inpatient (IN) ==
[2022-11-16] MEDS ORDERED: SODIUM CHLORIDE 0.9% 1000ML 1,000 ML IV ONE ×2 (17:36→18:37)
[2022-11-16] MEDS ORDERED: FAMOTIDINE 20MG IV PUSH 20 MG/5 ML SYR IV STA (17:47)
[2022-11-16] MEDS ORDERED: PANTOprazole 80 MG in DEXTROSE 5% 100 ML IV ONE (17:47)
[2022-11-16] MEDS ORDERED: ONDANSETRON INJ 2 MG/ML 2 ML VIAL IV STA (17:47)
--- NOTE | 2022-11-16 17:52 | Emergency Department Note ---
Impression & Plan Acute GI bleeding, Syncope, Anemia, Epigastric abdominal pain, Leukocytosis ED Provider Note NAME: JAVAD LEZAMA AGE: 27 SEX: M : 1995 ARRIVES VIA: Walk-In INFORMANT: [Patient][nursing] ED PROVIDER(S): [Sky Shepherd MD] CHIEF COMPLAINT: Rectal bleeding HISTORY OF PRESENT ILLNESS: The patient is a 27-year-old male who has been using diclofenac for a few weeks, he thinks he may have taken too much. This morning at around 2 AM, he began having some blood rectally. The bleeding became quite heavy and loose and dark in color in the last hour. He has felt short of breath and dizzy. As per nursing staff, the patient had 2 syncopal spells in triage. He had blood rect ally that ran from the wheelchair onto the floor. The patient admits to some upper epigastric abdominal pain. He has not had vomiting. No cough or congestion. No fever. No history of blood thinner use. He has never had a previous GI bleed, no previous ulcer. PMHx/PSHx: See Below SOCIAL HISTORY: See Below. PHYSICAL EXAM: GENERAL: Patient is in moderate distress, pale. HEENT: No acute trauma, normocephalic atraumatic, mucous membranes moist, no nasal congestion. NECK: No stridor, no adenopathy, no meningismus, trachea is midline. LUNGS: Clear to auscultation bilaterally, no wheeze, no rhonchi, breath sounds equal. HEART: Tachycardic, regular rhythm, no murmurs. ABDOMEN: Soft, mildly tender in the epigastrium, bowel sounds positive, no peritonitis. EXTREMITIES: No cyanosis or edema, full range of motion of all the joints without pain or difficulty, no signs for acute trauma. NEUROLOGIC: Oriented x 3, no acute motor or sensory deficits, no focal weakness. SKIN: No rash, no jaundice, no diaphoresis. Pale. DIFFERENTIAL DIAGNOSIS: Upper GI bleed, ulcer, anemia, dehydration, electrolyte imbalance, lower GI bleeding, medication reaction, among others. EMERGENCY DEPARTMENT COURSE/PROCEDURES: Prior/Outside records reviewed: None. ECG per my interpretation: Indication was syncope. The ECG shows a sinus tachycardia with a rate of 109. There is no ST elevation, no PVCs. The QTc is 430. Continuous Cardiac Monitoring per my interpretation: An order was placed for continuous cardiac monitoring. The monitor shows a rate of 107 with sinus tachycardia. Critical Care Note: I have personally spent 54 minutes of critical care time in the direct management of this patient. This includes bedside care, interpretation of diagnostic studies, and testing, discussion with consultants, patient, and family members, and other required patient management activities. This 54 minutes is in excess of all separately billable procedures. MEDICAL DECISION MAKING: There is a mild leukocytosis, this could be consistent with infection or just the stress of his current situation. The patient's hemoglobin was slightly low at 12.6, this was a three-point drop for him when comparing to previous testing. There was a normal platelet count. No coagulopathy. BUN was slightly elevated, this would be consistent with potential upper GI bleeding. There was no renal failure. No concerning liver enzyme elevation. ECG showed a sinus tachycardia, no ST elevation. Cardiac enzyme testing x1 was not consistent with acute cardiac injury. COVID test returned negative. Chest film per my review did not show mediastinal widening, pneumonia or pneumothorax. Abdominal and pelvis CT did not show any area of bleeding. No bowel obstruction. No colitis or diverticulitis mentioned. The patient had 2 syncopal events in triage. I was called to see the patient emergently. The patient was pale but awake and talking when I arrived at the bedside. The patient had 2 IVs established. He received IV saline, 2 L. He received IV Pepcid, IV Protonix and IV Zofran. The patient's tachycardia has improved. His blood pressure is adequate. The patient is in need of a hospital stay. He is suffering from a GI bleed, likely an upper GI bleed given his story and work-up. I did speak with him about his findings, I spoke with case management, the on-call hospitalist was consulted. Of note, a type and screen was ordered. The patient was not in need of an emergent blood transfusion. His hemoglobin was adequate. His hemoglobin does require close following. DISPOSITION: Patient's presentation and findings warrant a hospital stay. Past Med/Surg History Medical History Rheumatoid arthritis Suicidal ideations Vermiculation Surgical History No significant past surgical history Family History Other Back pain Social History Smoking Status: Never smoker Preferred Language: Mac[place] Communication Ability: Effective Turn Out Required: No Beliefs That Will Affect Care: None marital status: Single current occupational status: student Feels Safe at Home: Yes Gender Identity: Male Assistive Devices: Glasses Allergies Allergies Allergy/AdvReac Type Severity Reaction Status Date / Time azithromycin [From Zithromax] Allergy Intermediate Rash Verified 11/16/22 19:24 Home Meds Home Medications Medication Instructions Recorded Confirmed adalimumab 40 mg/0.8 mL 40 mg subcut .[id number] 03/26/21 11/16/22 subcutaneous syringe kit (Humira) gabapentin 100 mg capsule 200 mg PO BID 11/16/22 11/16/22 lamotrigine 25 mg tablet 50 mg PO HS 11/16/22 11/16/22 lurasidone 80 mg tablet 120 mg PO HS 11/16/22 11/16/22 Results & Data (ED) Vital Signs Vital Signs - 24 hr 11/16/22 17:25 11/16/22 17:49 11/16/22 18:01 Temperature 36.8 C Temperature Source Temporal Artery Scan Pulse Rate 121 H 96 H Pulse Rate [Right Apical] Respiratory Rate 18 Respiratory Effort / Characteristics Non-Labored Spontaneous Respiratory Depth Normal Respiratory Pattern Blood Pressure 110/76 Blood Pressure [Right Arm] Blood Pressure Mean 87 Blood Pressure Mean [Right Arm] Blood Pressure Position Sitting Pulse Oximetry 97 Oxygen Delivery Method Room Air Room Air Sepsis Recent Fever Within 48 Hours No Sepsis New/Unexplained Change in Mental Status N/A Sepsis Action Taken by Nursing No Action Required 11/16/22 18:09 Temperature Temperature Source Pulse Rate Pulse Rate [Right Apical] 85 Respiratory Rate 22 Respiratory Effort / Characteristics Non-Labored Spontaneous Respiratory Depth Normal Respiratory Pattern Regular Blood Pressure Blood Pressure [Right Arm] 107/69 Blood Pressure Mean Blood Pressure Mean [Right Arm] 81 Blood Pressure Position Pulse Oximetry 95 Oxygen Delivery Method Room Air Sepsis Recent Fever Within 48 Hours Sepsis New/Unexplained Change in Mental Status Sepsis Action Taken by Shelter Medications Current Medication List: was personally reviewed by me Laboratory Data Attestation: I reviewed the patient's lab results. 11/16/22 17:45 11/16/22 17:45 Lab Results 11/16/22 11/16/22 11/16/22 Range/Units 17:45 17:45 17:45 WBC 11.95 H (4.8-10.8) K/ul RBC 3.95 L (4.70-6.10) M/uL Hgb 12.6 L (14.0-18.0) g/dl Hct 34.8 L (42.0-52.0) % MCV 88.1 (80.0-100.0) fL MCH 31.9 (25.0-34.0) pg MCHC 36.2 H (32.0-36.0) g/dL RDW Std Deviation 42.7 (36.4-46.3) fL RDW Coeff of Rene 13.3 (11.5-14.5) % Plt Count 384 (130-400) K/uL MPV 10.4 (9.4-12.4) fL PT 11.4 (9.0-12.0) Seconds INR 1.0 (0.9-1.1) APTT 26.8 (21.0-31.0) Seconds PTT Ratio 1.0 Sodium 135 L (136-145) mmol/L Potassium 4.3 (3.5-5.1) mmol/L Chloride 107 (98-107) mmol/L Carbon Dioxide 20 L (21-32) mmol/L Anion Gap 8 (3-11) BUN 25 H (6-23) mg/dl Creatinine 1.05 (0.6-1.4) mg/dl Est Cr Clr Drug Dosing 164.1 ml/min Est GFR ( Amer) 113.8 ml/min Est GFR (Non-Af Amer) 98.2 ml/min BUN/Creatinine Ratio 23.8 H (10-20) Glucose 113 H (70-99(Fasting)) mg/dl Estimat Average Glucose mg/dl Hemoglobin A1c (4.5-5.6) % Calcium 9.1 (8.6-10.3) mg/dl Magnesium 1.8 (1.7-2.4) mg/dl Total Bilirubin 0.3 (0.2-1.0) mg/dl AST 25 (13-39) U/L ALT 64 H (7-52) U/L Alkaline Phosphatase 50 (34-104) U/L Troponin I High Sens < 2.3 (0-20) pg/ml Total Protein 6.9 (6.0-8.3) gm/dl Albumin 3.9 (3.4-5.0) gm/dl Globulin 3.0 (2.5-4.0) gm/dl Albumin/Globulin Ratio 1.3 (0.9-2) Procalcitonin (0-0.5) ng/ml SARS-CoV-2, RNA, NAAT (NEGATIVE) Blood Type Antibody Screen 11/16/22 11/16/22 11/16/22 Range/Units 17:45 17:45 17:50 WBC (4.8-10.8) K/ul RBC (4.70-6.10) M/uL Hgb (14.0-18.0) g/dl Hct (42.0-52.0) % MCV (80.0-100.0) fL MCH (25.0-34.0) pg MCHC (32.0-36.0) g/dL RDW Std Deviation (36.4-46.3) fL RDW Coeff of Rene (11.5-14.5) % Plt Count (130-400) K/uL MPV (9.4-12.4) fL PT (9.0-12.0) Seconds INR (0.9-1.1) APTT (21.0-31.0) Seconds PTT Ratio Sodium (136-145) mmol/L Potassium (3.5-5.1) mmol/L Chloride (98-107) mmol/L Carbon Dioxide (21-32) mmol/L Anion Gap (3-11) BUN (6-23) mg/dl Creatinine (0.6-1.4) mg/dl Est Cr Clr Drug Dosing ml/min Est GFR ( Amer) ml/min Est GFR (Non-Af Amer) ml/min BUN/Creatinine Ratio (10-20) Glucose (70-99(Fasting)) mg/dl Estimat Average Glucose 97 mg/dl Hemoglobin A1c 5.0 (4.5-5.6) % Calcium (8.6-10.3) mg/dl Magnesium (1.7-2.4) mg/dl Total Bilirubin (0.2-1.0) mg/dl AST (13-39) U/L ALT (7-52) U/L Alkaline Phosphatase (34-104) U/L Troponin I High Sens (0-20) pg/ml Total Protein (6.0-8.3) gm/dl Albumin (3.4-5.0) gm/dl Globulin (2.5-4.0) gm/dl Albumin/Globulin Ratio (0.9-2) Procalcitonin < 0.05 (0-0.5) ng/ml SARS-CoV-2, RNA, NAAT (NEGATIVE) Blood Type A Positive Antibody Screen NEGATIVE 11/16/22 Range/Units 19:04 WBC (4.8-10.8) K/ul RBC (4.70-6.10) M/uL Hgb (14.0-18.0) g/dl Hct (42.0-52.0) % MCV (80.0-100.0) fL MCH (25.0-34.0) pg MCHC (32.0-36.0) g/dL RDW Std Deviation (36.4-46.3) fL RDW Coeff of Rene (11.5-14.5) % Plt Count (130-400) K/uL MPV (9.4-12.4) fL PT (9.0-12.0) Seconds INR (0.9-1.1) APTT (21.0-31.0) Seconds PTT Ratio Sodium (136-145) mmol/L Potassium (3.5-5.1) mmol/L Chloride (98-107) mmol/L Carbon Dioxide (21-32) mmol/L Anion Gap (3-11) BUN (6-23) mg/dl Creatinine (0.6-1.4) mg/dl Est Cr Clr Drug Dosing ml/min Est GFR ( Amer) ml/min Est GFR (Non-Af Amer) ml/min BUN/Creatinine Ratio (10-20) Glucose (70-99(Fasting)) mg/dl Estimat Average Glucose mg/dl Hemoglobin A1c (4.5-5.6) % Calcium (8.6-10.3) mg/dl Magnesium (1.7-2.4) mg/dl Total Bilirubin (0.2-1.0) mg/dl AST (13-39) U/L ALT (7-52) U/L Alkaline Phosphatase (34-104) U/L Troponin I High Sens (0-20) pg/ml Total Protein (6.0-8.3) gm/dl Albumin (3.4-5.0) gm/dl Globulin (2.5-4.0) gm/dl Albumin/Globulin Ratio (0.9-2) Procalcitonin (0-0.5) ng/ml SARS-CoV-2, RNA, NAAT NEGATIVE (NEGATIVE) Blood Type Antibody Screen Administered Medications Magnesium Sulfate/Dextrose (Magnesium Sulfate / D5w) 1 gm in 100 mls @ 50 mls/hr IV ONE ONE Stop: 11/16/22 21:44 Last Admin: 11/16/22 19:45 Dose: 50 mls/hr Documented By: Discontinued Medications Sodium Chloride (Nss 1000ml) 1,000 mls @ 999 mls/hr IV .Q1H1M ONE Stop: 11/16/22 18:36 Last Infusion: 11/16/22 18:41 Dose: 0 mls/hr Documented By: Admin: 11/16/22 17:52 Dose: 999 mls/hr Documented By: ARASH Famotidine (Pepcid 20mg Iv Push) 20 mg in 5 mls @ 2.5 mls/min IV NOW STA Stop: 11/16/22 17:48 Last Admin: 11/16/22 17:52 Dose: 2.5 mls/min Documented By: ARASH Pantoprazole Sodium 80 mg/ (Dextrose) 120 mls @ 400 mls/hr IV NOW ONE Stop: 11/16/22 18:04 Last Infusion: 11/16/22 19:48 Dose: 0 mls/hr Documented By: Admin: 11/16/22 19:03 Dose: 400 mls/hr Documented By: Sodium Chloride (Nss 1000ml) 1,000 mls @ 999 mls/hr IV .Q1H1M ONE Stop: 11/16/22 19:37 Last Infusion: 11/16/22 19:48 Dose: 0 mls/hr Documented By: Admin: 11/16/22 19:03 Dose: 999 mls/hr Documented By: Ioversol (Optiray 320 100ml) 95 ml IV ONCE ONE Stop: 11/16/22 18:59 Last Admin: 11/16/22 18:58 Dose: 95 ml Documented By: AINSLEY Ondansetron HCl (Ondansetron Inj 2 Mg/Ml 2 Ml Vial) 4 mg IV NOW STA Stop: 11/16/22 17:48 Last Admin: 11/16/22 17:52 Dose: 4 mg Documented By: ARASH Imaging Data Radiologist's Impression: Abdomen/Pelvis CT 11/16/22 17:47 Exam(s): CT ABDOMEN + PELVIS With Contrast IV Amt: 95ml OPTIRAY 320 EXAM: CT Abdomen and Pelvis With Intravenous Contrast CLINICAL HISTORY: Reason for exam: gi bleed. TECHNIQUE: Axial computed tomography images of the abdomen and pelvis with intravenous contrast. CTDI is 28.14 mGy and DLP is 1626.47 mGy-cm. Automated exposure control was utilized for the study. A dose lowering technique was utilized adhering to the principles of ALARA. CONTRAST: Patient received 95ml OPTIRAY 320 of IV contrast COMPARISON: No relevant prior studies available. FINDINGS: Lung bases: Unremarkable. No mass. No consolidation. ABDOMEN: Liver: Unremarkable. No mass. Gallbladder and bile ducts: Gallbladder not visualized, presumed surgically absent. No ductal dilation. Pancreas: Unremarkable. No mass. No ductal dilation. Spleen: Unremarkable. No splenomegaly. Adrenals: Unremarkable. No mass. Kidneys and ureters: Unremarkable. No solid mass. No hydronephrosis. Stomach and bowel: Unremarkable. No mucosal thickening. No bowel obstruction. PELVIS: Appendix: Normal appendix. Bladder: Unremarkable. No mass. Reproductive: Unremarkable as visualized. ABDOMEN and PELVIS: Intraperitoneal space: Unremarkable. No free air. No significant fluid collection. Bones/joints: No acute fracture. No dislocation. Soft tissues: Unremarkable. Vasculature: Unremarkable. No abdominal aortic aneurysm. Lymph nodes: Unremarkable. No enlarged lymph nodes. IMPRESSION: No acute findings in the abdomen or pelvis. No identified source of gastrointestinal bleeding. Electronically signed by: Kelsy Noyola M.D. 11/16/22 19:32 PM Chest X-Ray 11/16/22 17:47 XR chest 1V portable CLINICAL HISTORY: sob TECHNIQUE: Single frontal radiograph of the chest was obtained. Comparison: Comparison is made to chest radiograph 03/26/2021 FINDINGS: No lines and tubes are seen. The cardiomediastinal silhouette is normal. The lungs are clear. No evidence of pleural effusion or pneumothorax. IMPRESSION: No acute chest disease. ACT 112: Negative or not required by law. Electronically signed by: Braulio Menjivar M.D. 11/16/2022 7:16 PM Discharge Plan Visit Data Chief Complaint: Rectal Bleed Stated Complaint: BLOOD IN STOOL,LIGHT HEADED,BAD VISION ED Provider: Sky Shepherd Discharge Problem: Acute GI bleeding, Syncope, Anemia, Epigastric abdominal pain, Leukocytosis Patient Disposition: Admitted As Inpatient Condition: Serious Forms Stand Alone Forms: My [facility] [employer] Prescriptions Prescriptions: No Action Humira 40 mg/0.8 mL Syringe Kit 40 mg SUBCUT .[id number] Rx Instructions: DUE 11/18/22 lamotrigine 25 mg tablet 50 mg PO HS gabapentin 100 mg capsule 200 mg PO BID lurasidone 80 mg tablet 120 mg PO HS Rx Instructions: PER PT "DOSE JUST CHANGED TO 120 MG". Referrals Referrals: PCP,NO [Physician] -
[2022-11-16 18:04] LABS: Hematocrit (blood only) 34.8 % (42.0-52.0); Hemoglobin 12.6 g/dl (14.0-18.0); Mean Corpuscular Hemoglobin 31.9 pg (25.0-34.0); Mean Corpuscular Hgb Conc 36.2 g/dL (32.0-36.0); Mean Corpuscular Volume 88.1 fL (80.0-100.0); Mean Platelet Volume 10.4 fL (9.4-12.4); Platelet Count 384 K/uL (130-400); RDW Coefficient of Variation 13.3 % (11.5-14.5); RDW Standard Deviation 42.7 fL (36.4-46.3); Red Blood Count 3.95 M/uL (4.70-6.10); White Blood Count 11.95 K/ul (4.8-10.8)
[2022-11-16 18:20] LABS: Alanine Aminotransferase 64 U/L (7-52); Albumin Globulin Ratio 1.3 (0.9-2); Albumin Level 3.9 gm/dl (3.4-5.0); Alkaline Phosphatase 50 U/L (34-104); Anion Gap 8 (3-11); Aspartate Aminotransferase 25 U/L (13-39); BUN Creatinine Ratio 23.8 (10-20); Bilirubin,Total 0.3 mg/dl (0.2-1.0); Blood Urea Nitrogen 25 mg/dl (6-23); Calcium 9.1 mg/dl (8.6-10.3); Carbon Dioxide 20 mmol/L (21-32); Chloride 107 mmol/L (98-107); Creatinine Clr Calc Pharmacy 164.1 ml/min; Est GFR (African American) 113.8 ml/min; Est GFR (Non-African American) 98.2 ml/min; Glucose 113 mg/dl (70-99(Fasting)); Magnesium 1.8 mg/dl (1.7-2.4); Potassium 4.3 mmol/L (3.5-5.1); Sodium 135 mmol/L (136-145); Total Protein 6.9 gm/dl (6.0-8.3)
[2022-11-16 18:24] LABS: Troponin I High Sensitivity < 2.3 pg/ml (0-20)
[2022-11-16 18:33] LABS: Partial Thromboplastin Time 26.8 Seconds (21.0-31.0); Prothrombin Time 11.4 Seconds (9.0-12.0)
[2022-11-16] MEDS ORDERED: OPTIRAY 320 100ml IV ONE (18:58)
--- NOTE | 2022-11-16 19:18 | XRay Report ---
XR chest 1V portable CLINICAL HISTORY: sob TECHNIQUE: Single frontal radiograph of the chest was obtained. Comparison: Comparison is made to chest radiograph 03/26/2021 FINDINGS: No lines and tubes are seen. The cardiomediastinal silhouette is normal. The lungs are clear. No evid ence of pleural effusion or pneumothorax. IMPRESSION: No acute chest disease. ACT 112: Negative or not required by law. Electronically signed by: Braulio Menjivar M.D. 11/16/2022 7:16 PM
--- NOTE | 2022-11-16 19:32 | CT Scan Report ---
Exam(s): CT ABDOMEN + PELVIS With Contrast IV Amt: 95ml OPTIRAY 320 EXAM: CT Abdomen and Pelvis With Intravenous Contrast CLINICAL HISTORY: Reason for exam: gi bleed. TECHNIQUE: Axial computed tomography images of the abdomen and pelvis with intravenous contrast. CTDI is 28.14 mGy and DLP is 1626.47 mGy-cm. Automated exposure control was utilized for the study. A dose lowering technique was utilized adhering to the principles of ALARA. CONTRAST: Patient received 95ml OPTIRAY 320 of IV contrast COMPARISON: No relevant prior studies available. FINDINGS: Lung bases: Unremarkable. No mass. No consolidation. ABDOMEN: Liver: Unremarkable. No mass. Gallbladder and bile ducts: Gallbladder not visualized, presumed surgically absent. No ductal dilation. Pancreas: Unremarkable. No mass. No ductal dilation. Spleen: Unremarkable. No splenomegaly. Adrenals: Unremarkable. No mass. Kidneys and ureters: Unremarkable. No solid mass. No hydronephrosis. Stomach and bowel: Unremarkable. No mucosal thickening. No bowel obstruction. PELVIS: Appendix: Normal appendix. Bladder: Unremarkable. No mass. Reproductive: Unremarkable as visualized. ABDOMEN and PELVIS: Intraperitoneal space: Unremarkable. No free air. No significant fluid collection. Bones/joints: No acute fracture. No dislocation. Soft tissues: Unremarkable. Vasculature: Unremarkable. No abdominal aortic aneurysm. Lymph nodes: Unremarkable. No enlarged lymph nodes. IMPRESSION: No acute findings in the abdomen or pelvis. No identified source of gastrointestinal bleeding. Electronically signed by: Kelsy Noyola M.D. 11/16/22 19:32 PM
[2022-11-16] MEDS ORDERED: MAGNESIUM SULFATE / D5W 1 GM/100 ML BAG IV ONE (19:45)
[2022-11-16] MEDS ORDERED: LACTATED RINGER'S 1,000 ML IV ONE (20:00)
[2022-11-16 20:03] LABS: Estimated Average Glucose 97 mg/dl
--- NOTE | 2022-11-16 20:10 | History & Physical Report ---
Date of Service November 16, 2022 Assessment & Plan (1) UGIB (upper gastrointestinal bleed): Plan: History GERD Likely NSAID gastritis given diclofenac Rx last week for seronegative RA flareup Anemia secondary to above Syncope likely secondary to orthostasis given hypotension noted at the ER. Rule out arrhythmia, structural cardiac pathology ANUEL CPAP intolerance schizoaffective disorder/anxiety/mood disorder/ADD, stable on regimen anosmia secondary to congenital nasal septal deviation status post surgery. Hyperglycemia rule out DM PCU given hypotension TTE for syncope Follow H&H, transfuse PRBC if hemoglobin less than 7 and for symptomatic anemia Patient counseled regarding adverse effects of NSAIDs on GI mucosa IV PPI GI consult re: UGIB n.p.o. until patient seen by GI in anticipation of endoscopy Check hemoglobin A1c DVT prophylaxis. SCDs Re: GI bleed Full code Text document was generated using [employer] voice recognition software. It may contain grammatical or spelling errors. Kindly contact undersigned for clarification of any documentation item in question. History of Present Illness Chief Complaint: Black bloody stools Primary Care Provider: Renata Waters MD History obtained from patient and records. Medical history significant for GERD, ANUEL CPAP intolerance, seronegative RA on Humira, schizoaffective disorder, anxiety/mood disorder, ADD, anosmia secondary to congenital nasal septal deviation status post surgery. Last confinement June 2022 under psychiatry service for depression. Last week, patient had a flare-up of his rheumatoid arthritis. Inadvertently double dosing old diclofenac prescription pills for pain because he could not remember instructions. Sometimes taking pills on an empty stomach when he is in a mahmood. Early this morning, patient noted black bloody stools stools with some epigastric discomfort. Bleeding became heavier. Transient shortness of breath on exertion and dizziness described as lightheadedness. No headache symptoms. Patient only takes as needed Tums for GERD as per account. Patient consulted a local urgent care center this morning and advised to go to ER with worsening symptoms. At the ER, patient had 2 syncopal events preceded by lightheadedness as per patient. Lowest SBP of 90s noted at the ER. IV Protonix given at the ER for UGIB. 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) Allergies Allergy/AdvReac Type Severity Reaction Status Date / Time azithromycin [From Zithromax] Allergy Intermediate Rash Verified 11/16/22 19:24 Home Medications Medication Instructions Recorded Confirmed Type adalimumab 40 mg/0.8 mL 40 mg subcut .[id number] 03/26/21 11/16/22 History subcutaneous syringe kit (Humira) gabapentin 100 mg capsule 200 mg PO BID 11/16/22 11/16/22 History lamotrigine 25 mg tablet 50 mg PO HS 11/16/22 11/16/22 History lurasidone 80 mg tablet 120 mg PO HS 11/16/22 11/16/22 History Past Med/Surg History Medical History Rheumatoid arthritis Suicidal ideations Vermiculation Surgical History No significant past surgical history Family History Other Back pain Social History Smoking Status: Never smoker Second Hand Exposure: No; Do You Dip or Chew Tobacco: No; Tobacco Cessation Education Requested by Patient: No Hx Alcohol Use: No Hx Substance Use: No Preferred Language: Andorran Communication Ability: Effective 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 Beliefs That Will Affect Care: None marital status: Single Current Living Situation: Alone Current Living Situation Comment: college student current occupational status: student Other Information That Helps Us Care for You: No Feels Safe at Home: Yes Safety Concerns: Feels Safe At This Time Gender Identity: Male Assistive Devices: None Review of Systems Review of Systems: As per HPI, all other systems reviewed and negative Physical Exam Physical Exam: GENERAL: Comfortable, obese, pleasant, no respiratory distress SKIN: Pallor , warm HEENT: Pale palpebral conjunctivae, no ptosis, mild septal deviation, dry buccal mucosa NECK : Supple, short neck, no tenderness CHEST : CTA, no tenderness HEART : RRR, no obvious murmurs ABDOMEN: Some distention, epigastric tenderness EXTREMITIES : No LE swelling/tenderness, no other conspicuous deformities noted NEUROLOGIC : Coherent, no facial asymmetry, no other gross focality Results & Data Results & Data Vital Signs (Past 12 Hours) Vital Signs Temp Pulse Pulse Resp BP BP Pulse Ox 11/16/22 18:09 85 22 107/69 95 11/16/22 18:01 11/16/22 17:49 96 H 11/16/22 17:25 36.8 C 121 H 18 110/76 97 O2 Del Method 11/16/22 18:09 Room Air 11/16/22 18:01 Room Air 11/16/22 17:49 11/16/22 17:25 Room Air Laboratory Results Laboratory Results WBC 11.95 K/ul (4.8-10.8) H 11/16/22 17:45 RBC 3.95 M/uL (4.70-6.10) L 11/16/22 17:45 Hgb 12.6 g/dl (14.0-18.0) L 11/16/22 17:45 Hct 34.8 % (42.0-52.0) L 11/16/22 17:45 MCV 88.1 fL (80.0-100.0) 11/16/22 17:45 MCH 31.9 pg (25.0-34.0) 11/16/22 17:45 MCHC 36.2 g/dL (32.0-36.0) H 11/16/22 17:45 RDW Std Deviation 42.7 fL (36.4-46.3) 11/16/22 17:45 RDW Coeff of Rene 13.3 % (11.5-14.5) 11/16/22 17:45 Plt Count 384 K/uL (130-400) 11/16/22 17:45 MPV 10.4 fL (9.4-12.4) 11/16/22 17:45 PT 11.4 Seconds (9.0-12.0) 11/16/22 17:45 INR 1.0 (0.9-1.1) 11/16/22 17:45 APTT 26.8 Seconds (21.0-31.0) 11/16/22 17:45 PTT Ratio 1.0 11/16/22 17:45 Sodium 135 mmol/L (136-145) L 11/16/22 17:45 Potassium 4.3 mmol/L (3.5-5.1) 11/16/22 17:45 Chloride 107 mmol/L (98-107) 11/16/22 17:45 Carbon Dioxide 20 mmol/L (21-32) L 11/16/22 17:45 Anion Gap 8 (3-11) 11/16/22 17:45 BUN 25 mg/dl (6-23) H 11/16/22 17:45 Creatinine 1.05 mg/dl (0.6-1.4) 11/16/22 17:45 Est Cr Clr Drug Dosing 164.1 ml/min 11/16/22 17:45 Est GFR ( Amer) 113.8 ml/min 11/16/22 17:45 Est GFR (Non-Af Amer) 98.2 ml/min 11/16/22 17:45 BUN/Creatinine Ratio 23.8 (10-20) H 11/16/22 17:45 Glucose 113 mg/dl (70-99(Fasting)) H 11/16/22 17:45 Estimat Average Glucose 97 mg/dl 11/16/22 17:45 Hemoglobin A1c 5.0 % (4.5-5.6) 11/16/22 17:45 Calcium 9.1 mg/dl (8.6-10.3) 11/16/22 17:45 Magnesium 1.8 mg/dl (1.7-2.4) 11/16/22 17:45 Total Bilirubin 0.3 mg/dl (0.2-1.0) 11/16/22 17:45 AST 25 U/L (13-39) 11/16/22 17:45 ALT 64 U/L (7-52) H 11/16/22 17:45 Alkaline Phosphatase 50 U/L (34-104) 11/16/22 17:45 Troponin I High Sens < 2.3 pg/ml (0-20) 11/16/22 17:45 Total Protein 6.9 gm/dl (6.0-8.3) 11/16/22 17:45 Albumin 3.9 gm/dl (3.4-5.0) 11/16/22 17:45 Globulin 3.0 gm/dl (2.5-4.0) 11/16/22 17:45 Albumin/Globulin Ratio 1.3 (0.9-2) 11/16/22 17:45 Procalcitonin < 0.05 ng/ml (0-0.5) 06/26/23 17:45 SARS-CoV-2, RNA, NAAT NEGATIVE (NEGATIVE) 11/16/22 19:04 Blood Type A Positive 11/16/22 17:50 Antibody Screen NEGATIVE 11/16/22 17:50 Impressions Abdomen/Pelvis CT 11/16/22 17:47 Exam(s): CT ABDOMEN + PELVIS With Contrast IV Amt: 95ml OPTIRAY 320 EXAM: CT Abdomen and Pelvis With Intravenous Contrast CLINICAL HISTORY: Reason for exam: gi bleed. TECHNIQUE: Axial computed tomography images of the abdomen and pelvis with intravenous contrast. CTDI is 28.14 mGy and DLP is 1626.47 mGy-cm. Automated exposure control was utilized for the study. A dose lowering technique was utilized adhering to the principles of ALARA. CONTRAST: Patient received 95ml OPTIRAY 320 of IV contrast COMPARISON: No relevant prior studies available. FINDINGS: Lung bases: Unremarkable. No mass. No consolidation. ABDOMEN: Liver: Unremarkable. No mass. Gallbladder and bile ducts: Gallbladder not visualized, presumed surgically absent. No ductal dilation. Pancreas: Unremarkable. No mass. No ductal dilation. Spleen: Unremarkable. No splenomegaly. Adrenals: Unremarkable. No mass. Kidneys and ureters: Unremarkable. No solid mass. No hydronephrosis. Stomach and bowel: Unremarkable. No mucosal thickening. No bowel obstruction. PELVIS: Appendix: Normal appendix. Bladder: Unremarkable. No mass. Reproductive: Unremarkable as visualized. ABDOMEN and PELVIS: Intraperitoneal space: Unremarkable. No free air. No significant fluid collection. Bones/joints: No acute fracture. No dislocation. Soft tissues: Unremarkable. Vasculature: Unremarkable. No abdominal aortic aneurysm. Lymph nodes: Unremarkable. No enlarged lymph nodes. IMPRESSION: No acute findings in the abdomen or pelvis. No identified source of gastrointestinal bleeding. Electronically signed by: Kelsy Noyola M.D. 11/16/22 19:32 PM Chest X-Ray 11/16/22 17:47 XR chest 1V portable CLINICAL HISTORY: sob TECHNIQUE: Single frontal radiograph of the chest was obtained. Comparison: Comparison is made to chest radiograph 03/26/2021 FINDINGS: No lines and tubes are seen. The cardiomediastinal silhouette is normal. The lungs are clear. No evidence of pleural effusion or pneumothorax. IMPRESSION: No acute chest disease. ACT 112: Negative or not required by law. Electronically signed by: Braulio Menjivar M.D. 11/16/2022 7:16 PM Diagnostic Findings EKG as per my interpretation :Rate 110, sinus tachycardia, normal axis, no ischemia
[2022-11-16] MEDS ORDERED: PROMETHAZINE HCL 12.5 MG in SODIUM CHLORIDE 0.9% 50 ML IV PRN (20:13)
[2022-11-16] MEDS ORDERED: LORazepam 0.5 MG TAB PO PRN (20:13)
[2022-11-16] MEDS ORDERED: oxyCODONE HCL IR 5 MG TAB (IMMEDIATE RELEASE) PO PRN (20:13)
[2022-11-16 20:43] LABS: Hematocrit (blood only) 30.2 % (42.0-52.0); Hemoglobin 10.6 g/dl (14.0-18.0)
[2022-11-16] MEDS ORDERED: lamoTRIgine 25 MG TAB PO STA (21:07)
[2022-11-16] MEDS ORDERED: LURASIDONE HCL 40 MG TAB PO STA (21:07)
[2022-11-16] MEDS ORDERED: ACETAMINOPHEN 325 MG TAB PO PRN (21:40)
[2022-11-16] MEDS: PANTOprazole 40 MG in DEXTROSE 5% 100 ML IV SCH (22:00)
[2022-11-16] MEDS: GABAPENTIN 100 MG CAP PO SCH (22:05)
[2022-11-17 01:05] LABS: Hematocrit (blood only) 28.2 % (42.0-52.0); Hemoglobin 10.1 g/dl (14.0-18.0)
[2022-11-17] MEDS: PANTOprazole 40 MG in DEXTROSE 5% 100 ML IV SCH ×2 (02:06→07:01)
[2022-11-17 06:23] LABS: Basophils # (auto) 0.04 K/uL (0-0.2); Basophils % (auto) 0.5 %; Eosinophils % (auto) 1.2 %; Hematocrit (blood only) 26.4 % (42.0-52.0); Hemoglobin 9.2 g/dl (14.0-18.0); Immature Granulocytes # (auto) 0.03 K/uL (0.01-0.20); Immature Granulocytes % (auto) 0.4 %; Lymphocytes # (auto) 3.74 K/uL (1.2-3.4); Lymphocytes % (auto) 45.1 %; Mean Corpuscular Hemoglobin 31.3 pg (25.0-34.0); Mean Corpuscular Hgb Conc 34.8 g/dL (32.0-36.0); Mean Corpuscular Volume 89.8 fL (80.0-100.0); Mean Platelet Volume 10.4 fL (9.4-12.4); Neutrophils # (auto) 3.89 K/uL (1.40-6.50); Neutrophils % (auto) 46.8 %; Platelet Count 247 K/uL (130-400); RDW Coefficient of Variation 13.6 % (11.5-14.5); RDW Standard Deviation 44.6 fL (36.4-46.3); Red Blood Count 2.94 M/uL (4.70-6.10)
[2022-11-17 06:40] LABS: BUN Creatinine Ratio 19.6 (10-20); Calcium 7.8 mg/dl (8.6-10.3); Creatinine Clr Calc Pharmacy 167.6 ml/min; Est GFR (African American) 117.9 ml/min; Est GFR (Non-African American) 101.7 ml/min; Potassium 4.2 mmol/L (3.5-5.1)
[2022-11-17] MEDS: GABAPENTIN 100 MG CAP PO SCH (07:54)
--- NOTE | 2022-11-17 08:31 | History & Physical Report ---
Date of Service November 17, 2022 Assessment & Plan (1) UGIB (upper gastrointestinal bleed): Plan: Patient presenting with signs and symptoms suggestive of an upper gastrointestinal bleed. We are planning to do urgent upper endoscopy today for further evaluation. I discussed the risks of the procedure with the patient to include bleeding, infection, perforation and need for follow-up studies. Admission and Anticipated Discharge Date Admission Date: November 16, 2022 History of Present Illness Chief Complaint: Melena Primary Care Provider: Renata Waters MD Patient presented with the ER with symptoms suggestive of an upper GI bleed in the setting of NSAID use. No hematemesis or coffee ground emesis noted, no dysphagia, + melena and abdominal pain. Allergies Allergy/AdvReac Type Severity Reaction Status Date / Time azithromycin [From Zithromax] Allergy Intermediate Rash Verified 11/16/22 19:24 Home Medications Medication Instructions Recorded Confirmed Type adalimumab 40 mg/0.8 mL 40 mg subcut .[id number] 03/26/21 11/16/22 History subcutaneous syringe kit (Humira) gabapentin 100 mg capsule 200 mg PO BID 11/16/22 11/16/22 History lamotrigine 25 mg tablet 50 mg PO HS 11/16/22 11/16/22 History lurasidone 80 mg tablet 120 mg PO HS 11/16/22 11/16/22 History Past Med/Surg History Medical History Rheumatoid arthritis Suicidal ideations Vermiculation Surgical History No significant past surgical history Family History Other Back pain Social History Smoking Status: Never smoker Second Hand Exposure: No; Do You Dip or Chew Tobacco: No; Tobacco Cessation Education Requested by Patient: No Hx Alcohol Use: No Hx Substance Use: No Preferred Language: Irish Communication Ability: Effective Ocean 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: No Beliefs That Will Affect Care: None marital status: Single Current Living Situation: Alone Current Living Situation Comment: college student current occupational status: student Other Information That Helps Us Care for You: No Feels Safe at Home: Yes Safety Concerns: Feels Safe At This Time Gender Identity: Male Assistive Devices: None Physical Exam Eyes: PERRL, conjunctivae normal, anicteric sclerae ENMT: external ear and nose normal, oropharynx normal Neck: trachea midline, no thyromegaly Respiratory: normal respiratory effort, lungs clear to auscultation Cardiovascular: RRR, no murmur, no edema Results & Data Vital Signs (Past 12 Hours) Vital Signs Temp Pulse Pulse Pulse Resp BP BP 11/17/22 07:43 36.4 C L 77 21 109/75 11/17/22 04:16 36.4 C L 74 20 108/72 11/16/22 21:40 91 H 11/16/22 23:14 36.6 C 80 16 108/69 11/16/22 21:31 36.4 C L 102 H 18 119/70 11/16/22 20:56 Pulse Ox O2 Del Method 11/17/22 07:43 98 Room Air 11/17/22 04:16 96 Room Air 11/16/22 21:40 11/16/22 23:14 95 Room Air 11/16/22 21:31 98 Room Air 11/16/22 20:56 Room Air Code Status & VTE Plan VTE Prophylaxis Plan VTE Prophylaxis will be ordered: Yes
--- NOTE | 2022-11-17 08:33 | Anesthesiology Consultation ---
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 Consults Requested none History Surgery Operation Date: 11/17/22 16:30 Proposed Procedures p Esophagogastroduodenoscopy Dr Cristian Foster, DO Height/Weight Height: 6 ft 3 in Weight: 140.795 kg Allergies Allergy/AdvReac Type Severity Reaction Status Date / Time azithromycin [From Zithromax] Allergy Intermediate Rash Verified 11/16/22 19:24 Medications Home Medications Medication Instructions Recorded Confirmed Last Taken adalimumab 40 mg/0.8 mL 40 mg subcut .[id number] 03/26/21 11/16/22 11/04/22 subcutaneous syringe kit (Humira) gabapentin 100 mg capsule 200 mg PO BID 11/16/22 11/16/22 11/16/22 08:00 lamotrigine 25 mg tablet 50 mg PO HS 11/16/22 11/16/22 11/15/22 lurasidone 80 mg tablet 120 mg PO HS 11/16/22 11/16/22 11/15/22 Active Medications Generic Name Dose Route Start Last Admin Trade Name Freq PRN Reason Stop Dose Admin Gabapentin 200 mg 11/16/22 21:40 11/17/22 07:54 Gabapentin 100 Mg Cap PO 12/16/22 21:39 200 mg BID KIKA Administration Lactated Ringer's 1,000 mls @ 75 mls/hr 11/16/22 20:00 11/17/22 07:11 Lr IV 11/17/22 09:19 Infused .[id number] ONE Infusion Pantoprazole Sodium 40 mg/ 100 mls @ 20 mls/hr 11/16/22 21:30 11/17/22 07:01 Dextrose IV 12/16/22 21:29 8 mg/hr Q5H KIKA 20 mls/hr Administration 8 MG/HR NPO Date Last Intake of Fluids: 11/16/22 Date Last Intake of Solids: 11/16/22 Past Medical History Medical History Encounter for pre-operative examination Rheumatoid arthritis Suicidal ideations Vermiculation Past Family History Family History Other Back pain Past Surgical History Surgical History No significant past surgical history Social History Smoking Status: Never smoker Do You Dip or Chew Tobacco: No Hx Alcohol Use: No Hx Substance Use: No Physical Exam Vital Signs Last Vital Signs Temp 36.4 C L 11/17/22 07:43 Pulse 77 11/17/22 07:43 Resp 21 11/17/22 07:43 BP 109/75 11/17/22 07:43 Pulse Ox 98 11/17/22 07:43 O2 Del Method Room Air 11/17/22 07:43 Testing Laboratory Results 11/17/22 05:33 11/17/22 05:33 PT 11.4 Seconds (9.0-12.0) 11/16/22 17:45 INR 1.0 (0.9-1.1) 11/16/22 17:45 APTT 26.8 Seconds (21.0-31.0) 11/16/22 17:45 Hemoglobin A1c 5.0 % (4.5-5.6) 11/16/22 17:45 Blood Type A Positive 11/16/22 17:50 Antibody Screen NEGATIVE 11/16/22 17:50 Electrocardiogram Date: 11/16/2216-Nov-2022 17:38:01 [facility]-EDSTAT ROUTINE RETRIEVAL Sinus tachycardia Otherwise normal ECG No previous ECGs available. Vent rate 109. Chest X-Ray Date: 11/16/22 XR chest 1V portable CLINICAL HISTORY: sob TECHNIQUE: Single frontal radiograph of the chest was obtained. Comparison: Comparison is made to chest radiograph 03/26/2021 FINDINGS: No lines and tubes are seen. The cardiomediastinal silhouette is normal. The lungs are clear. No evidence of pleural effusion or pneumothorax. IMPRESSION: No acute chest disease.
[2022-11-17] MEDS ORDERED: GLYCOPYRROLATE 0.2 MG/ML VIAL ONE (08:39)
[2022-11-17] MEDS ORDERED: PROPOFOL IV EMULSION 10 MG/ML 20 ML VIAL IV ONE (08:39)
[2022-11-17] MEDS ORDERED: LIDOCAINE 2% 2 ML VIAL/AMP(20MG/ML) INFIL ONE (08:39)
--- NOTE | 2022-11-17 08:46 | Gastrointestinal Consultation ---
Date of Consultation November 17, 2022 Assessment & Plan (1) UGIB (upper gastrointestinal bleed): 27 year old male with RA on humira w/ recent NSAID use admitted with epigastric pain, dark stools, BRBPR and near syncopal episode NPO for EGD evaluation Trend H&H Monitor and document stool Transfuse PRN Hold NSAIDs Agree w/ IV PPI See results of EGD for additional recommendations, plans. We appreciate assistance in the management of any serological abnormality and corrections to include: hemoglobin >7, INR <2, platelets >50,000, potassium levels >3.5 but <5.3, and sodium levels within 5 points of the reference range prior to endoscopic evaluation. Thank you for allowing us to participate in the care of this patient. Please call with any acute changes, questions or concerns. Please see addendum below with additional recommendation from my supervising physician. Supervising Physician Co-Signing Physician Notes I saw and evaluated the patient. We were consulted for evaluation of suspected gastrointestinal the patient does have a history of melena and a recent drop in his hemoglobin and hematocrit. 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 He recalls that the similar incident happened several years ago where he was told he had a hernia and esophagitis. Physical examination No obvious distress no scleral icterus minimal epigastric tenderness. Patient presenting with signs suggestive of gastrointestinal bleeding. We are planning to do upper endoscopy today for further evaluation. The risks of the procedure were discussed at length with the patient to include bleeding infection perforation aspiration and need for follow-up studies. History of Present Illness Reason for Consultation: dark stool Requesting Physician: Saba Attending Physician: Ayaz Walter MD History of Present Illness 27 year old male with history of RA on humira who presents through the ED with epigastric pain, dark stools and BRBPR and a near syncopal episode. GI was asked to evaluate for GI bleeding. Suggests has been using NSAIDs recently due to flare up of RA. Noted epigastric pain, followed by black stools and BRBPR. HGB 15 --> 9 Normal BuN CTAP 2022: no acute findings in the abdomen or pelvis. No identified source of gastrointestinal bleeding. EGD: none Colonoscopy: none Allergies Allergy/AdvReac Type Severity Reaction Status Date / Time azithromycin [From Zithromax] Allergy Intermediate Rash Verified 11/17/22 08:35 Home Medications Medication Instructions Recorded Confirmed Type adalimumab 40 mg/0.8 mL 40 mg subcut .[id number] 03/26/21 11/16/22 History subcutaneous syringe kit (Humira) gabapentin 100 mg capsule 200 mg PO BID 11/16/22 11/16/22 History lamotrigine 25 mg tablet 50 mg PO HS 11/16/22 11/16/22 History lurasidone 80 mg tablet 120 mg PO HS 11/16/22 11/16/22 History Patient History Medical History Encounter for pre-operative examination Rheumatoid arthritis Suicidal ideations Vermiculation Surgical History No significant past surgical history Family History Other Back pain Social History Smoking Status: Never smoker Second Hand Exposure: No; Do You Dip or Chew Tobacco: No; Tobacco Cessation Education Requested by Patient: No Hx Alcohol Use: No Hx Substance Use: No Preferred Language: Bengali Communication Ability: Effective Laboratory Technologist Required: No Beliefs That Will Affect Care: None marital status: Single Current Living Situation: Alone Current Living Situation Comment: college student current occupational status: student Other Information That Helps Us Care for You: No Feels Safe at Home: Yes Safety Concerns: Feels Safe At This Time Gender Identity: Male Assistive Devices: None Review of Systems Review of Systems: All systems reviewed & are unremarkable except as noted in HPI & below Physical Exam Constitutional: WD/WN, vitals as above Respiratory: normal respiratory effort, lungs clear to auscultation Cardiovascular: Rate/Rhythm: regular rate and regular rhythm Gastrointestinal (Abdomen): normal bowel sounds, soft, nontender, no hepatosplenomegaly Skin: no rashes, warm and dry Results & Data Vital Signs (Past 12 Hours) Vital Signs Temp Pulse Pulse Pulse Resp BP BP 11/17/22 07:43 36.4 C L 77 21 109/75 11/17/22 04:16 36.4 C L 74 20 108/72 11/16/22 21:40 91 H 11/16/22 23:14 36.6 C 80 16 108/69 11/16/22 21:31 36.4 C L 102 H 18 119/70 11/16/22 20:56 Pulse Ox O2 Del Method 11/17/22 07:43 98 Room Air 11/17/22 04:16 96 Room Air 11/16/22 21:40 11/16/22 23:14 95 Room Air 11/16/22 21:31 98 Room Air 11/16/22 20:56 Room Air Laboratory Results 11/17/22 11/17/22 11/17/22 Range/Units 05:33 05:33 00:37 WBC 8.30 (4.8-10.8) K/ul RBC 2.94 L (4.70-6.10) M/uL Hgb 9.2 L 10.1 L (14.0-18.0) g/dl Hct 26.4 L 28.2 L (42.0-52.0) % MCV 89.8 (80.0-100.0) fL MCH 31.3 (25.0-34.0) pg MCHC 34.8 (32.0-36.0) g/dL RDW Std Deviation 44.6 (36.4-46.3) fL RDW Coeff of Rene 13.6 (11.5-14.5) % Plt Count 247 (130-400) K/uL MPV 10.4 (9.4-12.4) fL Immature Gran % (Auto) 0.4 % Neut % (Auto) 46.8 % Lymph % (Auto) 45.1 % Jefferson % (Auto) 6.0 % Eos % (Auto) 1.2 % Baso % (Auto) 0.5 % Neut # (Auto) 3.89 (1.40-6.50) K/uL Lymph # (Auto) 3.74 H (1.2-3.4) K/uL Jefferson # (Auto) 0.50 (0.11-0.59) K/uL Eos # (Auto) 0.10 (0-0.50) K/uL Baso # (Auto) 0.04 (0-0.2) K/uL Immature Gran # (Auto) 0.03 (0.01-0.20) K/uL PT (9.0-12.0) Seconds INR (0.9-1.1) APTT (21.0-31.0) Seconds PTT Ratio Sodium 137 (136-145) mmol/L Potassium 4.2 (3.5-5.1) mmol/L Chloride 109 H (98-107) mmol/L Carbon Dioxide 25 (21-32) mmol/L Anion Gap 3 (3-11) BUN 20 (6-23) mg/dl Creatinine 1.02 (0.6-1.4) mg/dl Est Cr Clr Drug Dosing 167.6 ml/min Est GFR ( Amer) 117.9 ml/min Est GFR (Non-Af Amer) 101.7 ml/min BUN/Creatinine Ratio 19.6 (10-20) Glucose 96 (70-99(Fasting)) mg/dl Estimat Average Glucose mg/dl Hemoglobin A1c (4.5-5.6) % Lactate (0.4-2.0) mmol/L Calcium 7.8 L (8.6-10.3) mg/dl Magnesium (1.7-2.4) mg/dl Total Bilirubin (0.2-1.0) mg/dl AST (13-39) U/L ALT (7-52) U/L Alkaline Phosphatase (34-104) U/L Troponin I High Sens (0-20) pg/ml Total Protein (6.0-8.3) gm/dl Albumin (3.4-5.0) gm/dl Globulin (2.5-4.0) gm/dl Albumin/Globulin Ratio (0.9-2) Procalcitonin (0-0.5) ng/ml Stl C. diff Tox B Gene (Neg) SARS-CoV-2, RNA, NAAT (NEGATIVE) Blood Type Antibody Screen 11/16/22 11/16/22 11/16/22 Range/Units 23:30 20:23 20:23 WBC (4.8-10.8) K/ul RBC (4.70-6.10) M/uL Hgb 10.6 L (14.0-18.0) g/dl Hct 30.2 L (42.0-52.0) % MCV (80.0-100.0) fL MCH (25.0-34.0) pg MCHC (32.0-36.0) g/dL RDW Std Deviation (36.4-46.3) fL RDW Coeff of Rene (11.5-14.5) % Plt Count (130-400) K/uL MPV (9.4-12.4) fL Immature Gran % (Auto) % Neut % (Auto) % Lymph % (Auto) % Jefferson % (Auto) % Eos % (Auto) % Baso % (Auto) % Neut # (Auto) (1.40-6.50) K/uL Lymph # (Auto) (1.2-3.4) K/uL Jefferson # (Auto) (0.11-0.59) K/uL Eos # (Auto) (0-0.50) K/uL Baso # (Auto) (0-0.2) K/uL Immature Gran # (Auto) (0.01-0.20) K/uL PT (9.0-12.0) Seconds INR (0.9-1.1) APTT (21.0-31.0) Seconds PTT Ratio Sodium (136-145) mmol/L Potassium (3.5-5.1) mmol/L Chloride (98-107) mmol/L Carbon Dioxide (21-32) mmol/L Anion Gap (3-11) BUN (6-23) mg/dl Creatinine (0.6-1.4) mg/dl Est Cr Clr Drug Dosing ml/min Est GFR ( Amer) ml/min Est GFR (Non-Af Amer) ml/min BUN/Creatinine Ratio (10-20) Glucose (70-99(Fasting)) mg/dl Estimat Average Glucose mg/dl Hemoglobin A1c (4.5-5.6) % Lactate 1.4 (0.4-2.0) mmol/L Calcium (8.6-10.3) mg/dl Magnesium (1.7-2.4) mg/dl Total Bilirubin (0.2-1.0) mg/dl AST (13-39) U/L ALT (7-52) U/L Alkaline Phosphatase (34-104) U/L Troponin I High Sens (0-20) pg/ml Total Protein (6.0-8.3) gm/dl Albumin (3.4-5.0) gm/dl Globulin (2.5-4.0) gm/dl Albumin/Globulin Ratio (0.9-2) Procalcitonin (0-0.5) ng/ml Stl C. diff Tox B Gene Negative Cdiff Gene (Neg) SARS-CoV-2, RNA, NAAT (NEGATIVE) Blood Type Antibody Screen 11/16/22 11/16/22 11/16/22 Range/Units 19:04 17:50 17:45 WBC (4.8-10.8) K/ul RBC (4.70-6.10) M/uL Hgb (14.0-18.0) g/dl Hct (42.0-52.0) % MCV (80.0-100.0) fL MCH (25.0-34.0) pg MCHC (32.0-36.0) g/dL RDW Std Deviation (36.4-46.3) fL RDW Coeff of Rene (11.5-14.5) % Plt Count (130-400) K/uL MPV (9.4-12.4) fL Immature Gran % (Auto) % Neut % (Auto) % Lymph % (Auto) % Jefferson % (Auto) % Eos % (Auto) % Baso % (Auto) % Neut # (Auto) (1.40-6.50) K/uL Lymph # (Auto) (1.2-3.4) K/uL Jefferson # (Auto) (0.11-0.59) K/uL Eos # (Auto) (0-0.50) K/uL Baso # (Auto) (0-0.2) K/uL Immature Gran # (Auto) (0.01-0.20) K/uL PT (9.0-12.0) Seconds INR (0.9-1.1) APTT (21.0-31.0) Seconds PTT Ratio Sodium (136-145) mmol/L Potassium (3.5-5.1) mmol/L Chloride (98-107) mmol/L Carbon Dioxide (21-32) mmol/L Anion Gap (3-11) BUN (6-23) mg/dl Creatinine (0.6-1.4) mg/dl Est Cr Clr Drug Dosing ml/min Est GFR ( Amer) ml/min Est GFR (Non-Af Amer) ml/min BUN/Creatinine Ratio (10-20) Glucose (70-99(Fasting)) mg/dl Estimat Average Glucose 97 mg/dl Hemoglobin A1c 5.0 (4.5-5.6) % Lactate (0.4-2.0) mmol/L Calcium (8.6-10.3) mg/dl Magnesium (1.7-2.4) mg/dl Total Bilirubin (0.2-1.0) mg/dl AST (13-39) U/L ALT (7-52) U/L Alkaline Phosphatase (34-104) U/L Troponin I High Sens (0-20) pg/ml Total Protein (6.0-8.3) gm/dl Albumin (3.4-5.0) gm/dl Globulin (2.5-4.0) gm/dl Albumin/Globulin Ratio (0.9-2) Procalcitonin (0-0.5) ng/ml Stl C. diff Tox B Gene (Neg) SARS-CoV-2, RNA, NAAT NEGATIVE (NEGATIVE) Blood Type A Positive Antibody Screen NEGATIVE 11/16/22 11/16/22 11/16/22 Range/Units 17:45 17:45 17:45 WBC (4.8-10.8) K/ul RBC (4.70-6.10) M/uL Hgb (14.0-18.0) g/dl Hct (42.0-52.0) % MCV (80.0-100.0) fL MCH (25.0-34.0) pg MCHC (32.0-36.0) g/dL RDW Std Deviation (36.4-46.3) fL RDW Coeff of Rene (11.5-14.5) % Plt Count (130-400) K/uL MPV (9.4-12.4) fL Immature Gran % (Auto) % Neut % (Auto) % Lymph % (Auto) % Jefferson % (Auto) % Eos % (Auto) % Baso % (Auto) % Neut # (Auto) (1.40-6.50) K/uL Lymph # (Auto) (1.2-3.4) K/uL Jefferson # (Auto) (0.11-0.59) K/uL Eos # (Auto) (0-0.50) K/uL Baso # (Auto) (0-0.2) K/uL Immature Gran # (Auto) (0.01-0.20) K/uL PT 11.4 (9.0-12.0) Seconds INR 1.0 (0.9-1.1) APTT 26.8 (21.0-31.0) Seconds PTT Ratio 1.0 Sodium 135 L (136-145) mmol/L Potassium 4.3 (3.5-5.1) mmol/L Chloride 107 (98-107) mmol/L Carbon Dioxide 20 L (21-32) mmol/L Anion Gap 8 (3-11) BUN 25 H (6-23) mg/dl Creatinine 1.05 (0.6-1.4) mg/dl Est Cr Clr Drug Dosing 164.1 ml/min Est GFR ( Amer) 113.8 ml/min Est GFR (Non-Af Amer) 98.2 ml/min BUN/Creatinine Ratio 23.8 H (10-20) Glucose 113 H (70-99(Fasting)) mg/dl Estimat Average Glucose mg/dl Hemoglobin A1c (4.5-5.6) % Lactate (0.4-2.0) mmol/L Calcium 9.1 (8.6-10.3) mg/dl Magnesium 1.8 (1.7-2.4) mg/dl Total Bilirubin 0.3 (0.2-1.0) mg/dl AST 25 (13-39) U/L ALT 64 H (7-52) U/L Alkaline Phosphatase 50 (34-104) U/L Troponin I High Sens < 2.3 (0-20) pg/ml Total Protein 6.9 (6.0-8.3) gm/dl Albumin 3.9 (3.4-5.0) gm/dl Globulin 3.0 (2.5-4.0) gm/dl Albumin/Globulin Ratio 1.3 (0.9-2) Procalcitonin < 0.05 (0-0.5) ng/ml Stl C. diff Tox B Gene (Neg) SARS-CoV-2, RNA, NAAT (NEGATIVE) Blood Type Antibody Screen 11/16/22 Range/Units 17:45 WBC 11.95 H (4.8-10.8) K/ul RBC 3.95 L (4.70-6.10) M/uL Hgb 12.6 L (14.0-18.0) g/dl Hct 34.8 L (42.0-52.0) % MCV 88.1 (80.0-100.0) fL MCH 31.9 (25.0-34.0) pg MCHC 36.2 H (32.0-36.0) g/dL RDW Std Deviation 42.7 (36.4-46.3) fL RDW Coeff of Rene 13.3 (11.5-14.5) % Plt Count 384 (130-400) K/uL MPV 10.4 (9.4-12.4) fL Immature Gran % (Auto) % Neut % (Auto) % Lymph % (Auto) % Jefferson % (Auto) % Eos % (Auto) % Baso % (Auto) % Neut # (Auto) (1.40-6.50) K/uL Lymph # (Auto) (1.2-3.4) K/uL Jefferson # (Auto) (0.11-0.59) K/uL Eos # (Auto) (0-0.50) K/uL Baso # (Auto) (0-0.2) K/uL Immature Gran # (Auto) (0.01-0.20) K/uL PT (9.0-12.0) Seconds INR (0.9-1.1) APTT (21.0-31.0) Seconds PTT Ratio Sodium (136-145) mmol/L Potassium (3.5-5.1) mmol/L Chloride (98-107) mmol/L Carbon Dioxide (21-32) mmol/L Anion Gap (3-11) BUN (6-23) mg/dl Creatinine (0.6-1.4) mg/dl Est Cr Clr Drug Dosing ml/min Est GFR ( Amer) ml/min Est GFR (Non-Af Amer) ml/min BUN/Creatinine Ratio (10-20) Glucose (70-99(Fasting)) mg/dl Estimat Average Glucose mg/dl Hemoglobin A1c (4.5-5.6) % Lactate (0.4-2.0) mmol/L Calcium (8.6-10.3) mg/dl Magnesium (1.7-2.4) mg/dl Total Bilirubin (0.2-1.0) mg/dl AST (13-39) U/L ALT (7-52) U/L Alkaline Phosphatase (34-104) U/L Troponin I High Sens (0-20) pg/ml Total Protein (6.0-8.3) gm/dl Albumin (3.4-5.0) gm/dl Globulin (2.5-4.0) gm/dl Albumin/Globulin Ratio (0.9-2) Procalcitonin (0-0.5) ng/ml Stl C. diff Tox B Gene (Neg) SARS-CoV-2, RNA, NAAT (NEGATIVE) Blood Type Antibody Screen
--- NOTE | 2022-11-17 08:59 | GI REPORT ---
Patient Name: Jose Mckeon Procedure Date: 11/17/2022 8:46 AM Date of : 1995 Admit Type: Inpatient Age: 27 Gender: Male Attending MD: Ignacio Foster DO, Procedure: Upper GI endoscopy Providers: Ignacio Foster DO Referring MD: Ayaz Walter Md Indications: Melena Medicines: Monitored Anesthesia Care Complications: No immediate complications. Estimated blood loss: Minimal. Estimated Blood Loss: Estimated blood loss was minimal. Procedure: Pre-Anesthesia Assessment: - Prior to the procedure, a History and Physical was performed, and patient medications, allergies and sensitivities were reviewed. The patient's tolerance of previous anesthesia was reviewed. - The risks and benefits of the procedure and the sedation options and risks were discussed with the patient. All questions were answered and informed consent was obtained. - Patient identification and proposed procedure were verified prior to the procedure by the physician, the nurse and the clinical psychologist private practice. The procedure was verified in the procedure room. - Pre-procedure physical examination revealed no contraindications to sedation. - ASA Grade Assessment: III - A patient with severe systemic disease. - After reviewing the risks and benefits, the patient was deemed in satisfactory condition to undergo the procedure. - The anesthesia plan was to use monitored anesthesia care (MAC). - Immediately prior to administration of medications, the patient was re-assessed for adequacy to receive sedatives. - The heart rate, respiratory rate, oxygen saturations, blood pressure, adequacy of pulmonary ventilation, and response to care were monitored throughout the procedure. - The physical status of the patient was re-assessed after the procedure. After obtaining informed consent, the endoscope was passed under direct vision. Throughout the procedure, the patient's blood pressure, pulse, and oxygen saturations were monitored continuously. The Endoscope was introduced through the mouth, and advanced to the third part of duodenum. The upper GI endoscopy was accomplished without difficulty. The patient tolerated the procedure well. Findings: The upper third of the esophagus and middle third of the esophagus were normal. LA Grade B (one or more mucosal breaks greater than 5 mm, not extending between the tops of two mucosal folds) esophagitis with no active bleeding (evidence of recent bleeding seen) was found in the lower third of the esophagus. A medium-sized hiatal hernia was found. The proximal extent of the gastric folds (end of tubular esophagus) was 40 cm from the incisors. The hiatal narrowing was 38 cm from the incisors. The gastric fundus, incisura and gastric antrum were normal. The examined duodenum was normal. Impression: - Normal upper third of esophagus and middle third of esophagus. - LA Grade B erosive esophagitis with no active bleeding. - Medium-sized hiatal hernia. - Normal gastric fundus, incisura and antrum. - Normal examined duodenum. - No specimens collected. Recommendation: - Return patient to hospital amato for ongoing care. - Use Prilosec (omeprazole) 40 mg PO daily for 12 weeks. - Repeat upper endoscopy in 12 weeks for surveillance. - Use an iron suppelement for 6 to 8 weeks - Repeat CBC via PCM in 6 weeks to ensure CBC is returning to normal levels. Ignacio Foster D.O. Ignacio Foster, 11/17/2022 8:58:14 AM This report has been signed electronically. Note Initiated On: 11/17/2022 8:46 AM Number of Addenda: 0 I attest to the content of the Intraoperative Record and orders documented therein, exceptions below {[id number]}
[2022-11-17] MEDS ORDERED: PANTOprazole 40 MG TAB PO SCH (09:00)
--- NOTE | 2022-11-17 09:10 | Communication Note ---
Date of Service: November 17, 2022 The patient underwent upper endoscopy today. He was found to have a moderate- sized hiatal hernia and evidence of esophagitis. This is the likely culprit of his melena given the recent NSAID use. Recommendations Advance diet as tolerated avoid NSAIDs omeprazole daily for 12 weeks iron supplement 1 time daily for 6 to 8 weeks repeat CBC in 6 weeks to ensure blood count is normalizing. repeat EGD in 3 months GI to sign off
--- NOTE | 2022-11-17 10:56 | Electrocardiogram Report ---
Test Reason : Blood Pressure : / mmHG Vent. Rate : 109 BPM Atrial Rate : 109 BPM P-R Int : 124 ms QRS Dur : 072 ms QT Int : 320 ms P-R-T Axes : 098 027 049 degrees QTc Int : 430 ms Sinus tachycardia Otherwise normal ECG No previous ECGs available Confirmed by Diomedes Manuel ([id number]) on 11/17/2022 10:56:16 AM Referred By: REFERRED SELF Confirmed By:Diomedes Manuel
--- NOTE | 2022-11-17 11:03 | Anesthesiology Progress Note ---
Date of Service November 17, 2022 Anesthesia Post Procedure Vital Signs Vital Signs: Temp Pulse Pulse Pulse Resp BP BP 11/17/22 09:30 76 16 124/68 11/17/22 09:15 85 16 122/80 11/17/22 09:00 89 16 93/58 L 11/17/22 08:46 11/16/22 20:00 36.5 C 78 16 99/77 L 11/17/22 07:43 36.4 C L 77 21 109/75 11/17/22 04:16 36.4 C L 74 20 108/72 11/16/22 21:40 91 H 11/16/22 23:14 36.6 C 80 16 108/69 11/16/22 21:31 36.4 C L 102 H 18 11/16/22 20:56 11/16/22 20:00 91 H 22 11/16/22 20:00 112/71 11/16/22 18:30 88 20 11/16/22 18:10 98/74 L 11/16/22 18:09 85 22 11/16/22 18:01 11/16/22 17:49 96 H 11/16/22 17:25 36.8 C 121 H 18 110/76 BP Pulse Ox O2 Del Method 11/17/22 09:30 98 Room Air 11/17/22 09:15 98 Room Air 11/17/22 09:00 98 Room Air 11/17/22 08:46 Room Air 11/16/22 20:00 99 Room Air 11/17/22 07:43 98 Room Air 11/17/22 04:16 96 Room Air 11/16/22 21:40 11/16/22 23:14 95 Room Air 11/16/22 21:31 119/70 98 Room Air 11/16/22 20:56 Room Air 11/16/22 20:00 99 Room Air 11/16/22 20:00 11/16/22 18:30 97 Room Air 11/16/22 18:10 11/16/22 18:09 107/69 95 Room Air 11/16/22 18:01 Room Air 11/16/22 17:49 11/16/22 17:25 97 Room Air Pain Intensity Bilateral Abdomen: Pain Intensity: 0 Transfer of Care Handoff Completed per policy Notes Mental Status: alert / awake / arousable and participated in evaluation Patient Amnestic to Procedure: Yes Nausea / Vomiting: adequately controlled Pain: adequately controlled Airway Patency, RR, SpO2: stable & adequate BP & HR: stable & adequate Hydration State: stable & adequate Anesthetic Complications: no major complications apparent
[2022-11-17 12:32] LABS: Hematocrit (blood only) 26.6 % (42.0-52.0); Hemoglobin 9.4 g/dl (14.0-18.0)
--- NOTE | 2022-11-17 16:04 | Discharge Summary ---
Date of Service November 17, 2022 Admission HPI Per Admitting Provider History obtained from patient and records. Medical history significant for GERD, ANUEL CPAP intolerance, seronegative RA on Humira, schizoaffective disorder, anxiety/mood disorder, ADD, anosmia secondary to congenital nasal septal deviation status post surgery. Last confinement June 2022 under psychiatry service for depression. Last week, patient had a flare-up of his rheumatoid arthritis. Inadvertently double dosing old diclofenac prescription pills for pain because he could not remember instructions. Sometimes taking pills on an empty stomach when he is in a mahmood. Early this morning, patient noted black bloody stools stools with some epigastric discomfort. Bleeding became heavier. Transient shortness of breath on exertion and dizziness described as lightheadedness. No headache symptoms. Patient only takes as needed Tums for GERD as per account. Patient consulted a local urgent care center this morning and advised to go to ER with worsening symptoms. At the ER, patient had 2 syncopal events preceded by lightheadedness as per patient. Lowest SBP of 90s noted at the ER. IV Protonix given at the ER for UGIB. Admission Exam Per Admitting Provider GENERAL: Comfortable, obese, pleasant, no respiratory distress SKIN: Pallor , warm HEENT: Pale palpebral conjunctivae, no ptosis, mild septal deviation, dry buccal mucosa NECK : Supple, short neck, no tenderness CHEST : CTA, no tenderness HEART : RRR, no obvious murmurs ABDOMEN: Some distention, epigastric tenderness EXTREMITIES : No LE swelling/tenderness, no other conspicuous deformities noted NEUROLOGIC : Coherent, no facial asymmetry, no other gross focality Principal Diagnosis Esophagitis/UGI bleed due to NSAIDs, Acute blood loss anemia Discharge Exam General: Lying comfortably in bed, not in distress, on room air HEENT: EOMI, RASHAD, MMM Chest: Clear breath sounds bilaterally, no wheezes or crackles CVS: Regular rate and rhythm, normal heart sounds, no murmur Abdomen: Soft, non tender, not distended, normal bowel sounds Neuro: Awake, alert, oriented, conversing well, non focal Extremities: No cyanosis, clubbing or edema Discharge Data Allergies Allergy/AdvReac Type Severity Reaction Status Date / Time azithromycin [From Zithromax] Allergy Intermediate Rash Verified 11/17/22 08:35 Consultations 11/16/22 19:04 ED Decision to Admit Stat 11/16/22 21:40 Consult Gastroenterology Routine Procedures Performed Operation Date: 11/17/22 16:30 Actual Procedures p Esophagogastroduodenoscopy(Not Applicable) - Ignacio Foster, Ordered Studies 11/16/22 17:47 CT Abd and Pelvis [CT abd pelvis IV con only] Stat Laboratory Results WBC 8.30 K/ul (4.8-10.8) 11/17/22 05:33 RBC 2.94 M/uL (4.70-6.10) L 11/17/22 05:33 Hgb 9.4 g/dl (14.0-18.0) L 11/17/22 11:51 Hct 26.6 % (42.0-52.0) L 11/17/22 11:51 MCV 89.8 fL (80.0-100.0) 11/17/22 05:33 MCH 31.3 pg (25.0-34.0) 11/17/22 05:33 MCHC 34.8 g/dL (32.0-36.0) 11/17/22 05:33 RDW Std Deviation 44.6 fL (36.4-46.3) 11/17/22 05:33 RDW Coeff of Rene 13.6 % (11.5-14.5) 11/17/22 05:33 Plt Count 247 K/uL (130-400) 11/17/22 05:33 MPV 10.4 fL (9.4-12.4) 11/17/22 05:33 Immature Gran % (Auto) 0.4 % 11/17/22 05:33 Neut % (Auto) 46.8 % 11/17/22 05:33 Lymph % (Auto) 45.1 % 11/17/22 05:33 [place] % (Auto) 6.0 % 11/17/22 05:33 Eos % (Auto) 1.2 % 11/17/22 05:33 Baso % (Auto) 0.5 % 11/17/22 05:33 Neut # (Auto) 3.89 K/uL (1.40-6.50) 11/17/22 05:33 Lymph # (Auto) 3.74 K/uL (1.2-3.4) H 11/17/22 05:33 [place] # (Auto) 0.50 K/uL (0.11-0.59) 11/17/22 05:33 Eos # (Auto) 0.10 K/uL (0-0.50) 11/17/22 05:33 Baso # (Auto) 0.04 K/uL (0-0.2) 11/17/22 05:33 Immature Gran # (Auto) 0.03 K/uL (0.01-0.20) 11/17/22 05:33 PT 11.4 Seconds (9.0-12.0) 11/16/22 17:45 INR 1.0 (0.9-1.1) 11/16/22 17:45 APTT 26.8 Seconds (21.0-31.0) 11/16/22 17:45 PTT Ratio 1.0 11/16/22 17:45 Sodium 137 mmol/L (136-145) 11/17/22 05:33 Potassium 4.2 mmol/L (3.5-5.1) 11/17/22 05:33 Chloride 109 mmol/L (98-107) H 11/17/22 05:33 Carbon Dioxide 25 mmol/L (21-32) 11/17/22 05:33 Anion Gap 3 (3-11) 11/17/22 05:33 BUN 20 mg/dl (6-23) 11/17/22 05:33 Creatinine 1.02 mg/dl (0.6-1.4) 11/17/22 05:33 Est Cr Clr Drug Dosing 167.6 ml/min 11/17/22 05:33 Est GFR ( Amer) 117.9 ml/min 11/17/22 05:33 Est GFR (Non-Af Amer) 101.7 ml/min 11/17/22 05:33 BUN/Creatinine Ratio 19.6 (10-20) 11/17/22 05:33 Glucose 96 mg/dl (70-99(Fasting)) 11/17/22 05:33 Estimat Average Glucose 97 mg/dl 11/16/22 17:45 Hemoglobin A1c 5.0 % (4.5-5.6) 11/16/22 17:45 Lactate 1.4 mmol/L (0.4-2.0) 11/16/22 20:23 Calcium 7.8 mg/dl (8.6-10.3) L 11/17/22 05:33 Magnesium 1.8 mg/dl (1.7-2.4) 11/16/22 17:45 Total Bilirubin 0.3 mg/dl (0.2-1.0) 11/16/22 17:45 AST 25 U/L (13-39) 11/16/22 17:45 ALT 64 U/L (7-52) H 11/16/22 17:45 Alkaline Phosphatase 50 U/L (34-104) 11/16/22 17:45 Troponin I High Sens < 2.3 pg/ml (0-20) 11/16/22 17:45 Total Protein 6.9 gm/dl (6.0-8.3) 11/16/22 17:45 Albumin 3.9 gm/dl (3.4-5.0) 11/16/22 17:45 Globulin 3.0 gm/dl (2.5-4.0) 11/16/22 17:45 Albumin/Globulin Ratio 1.3 (0.9-2) 11/16/22 17:45 Procalcitonin < 0.05 ng/ml (0-0.5) 11/16/22 17:45 Stl C. diff Tox B Gene Negative Cdiff Gene (Neg) 11/16/22 23:30 SARS-CoV-2, RNA, NAAT NEGATIVE (NEGATIVE) 11/16/22 19:04 Blood Type A Positive 11/16/22 17:50 Antibody Screen NEGATIVE 11/16/22 17:50 Impressions Abdomen/Pelvis CT 11/16/22 17:47 Exam(s): CT ABDOMEN + PELVIS With Contrast IV Amt: 95ml OPTIRAY 320 EXAM: CT Abdomen and Pelvis With Intravenous Contrast CLINICAL HISTORY: Reason for exam: gi bleed. TECHNIQUE: Axial computed tomography images of the abdomen and pelvis with intravenous contrast. CTDI is 28.14 mGy and DLP is 1626.47 mGy-cm. Automated exposure control was utilized for the study. A dose lowering technique was utilized adhering to the principles of ALARA. CONTRAST: Patient received 95ml OPTIRAY 320 of IV contrast COMPARISON: No relevant prior studies available. FINDINGS: Lung bases: Unremarkable. No mass. No consolidation. ABDOMEN: Liver: Unremarkable. No mass. Gallbladder and bile ducts: Gallbladder not visualized, presumed surgically absent. No ductal dilation. Pancreas: Unremarkable. No mass. No ductal dilation. Spleen: Unremarkable. No splenomegaly. Adrenals: Unremarkable. No mass. Kidneys and ureters: Unremarkable. No solid mass. No hydronephrosis. Stomach and bowel: Unremarkable. No mucosal thickening. No bowel obstruction. PELVIS: Appendix: Normal appendix. Bladder: Unremarkable. No mass. Reproductive: Unremarkable as visualized. ABDOMEN and PELVIS: Intraperitoneal space: Unremarkable. No free air. No significant fluid collection. Bones/joints: No acute fracture. No dislocation. Soft tissues: Unremarkable. Vasculature: Unremarkable. No abdominal aortic aneurysm. Lymph nodes: Unremarkable. No enlarged lymph nodes. IMPRESSION: No acute findings in the abdomen or pelvis. No identified source of gastrointestinal bleeding. Electronically signed by: Kelsy Noyola M.D. 11/16/22 19:32 PM Chest X-Ray 11/16/22 17:47 XR chest 1V portable CLINICAL HISTORY: sob TECHNIQUE: Single frontal radiograph of the chest was obtained. Comparison: Comparison is made to chest radiograph 03/26/2021 FINDINGS: No lines and tubes are seen. The cardiomediastinal silhouette is normal. The lungs are clear. No evidence of pleural effusion or pneumothorax. IMPRESSION: No acute chest disease. ACT 112: Negative or not required by law. Electronically signed by: Braulio Menjivar M.D. 11/16/2022 7:16 PM Hospital Course (1) Esophagitis due to drug: (2) UGIB (upper gastrointestinal bleed): (3) Acute blood loss anemia: Plan 27-year-old male with history of seronegative rheumatoid arthritis on Humira presented to ED with bloody black stools with epigastric discomfort and presyncopal episode. He recently had RA flare and was taking NSAIDs. He was noted to have 2 syncopal episodes in the ED preceded by lightheadedness. He was started on IVF, PPI drip and hemoglobin trending done-hemoglobin has remained stable more than 9. Seen by GI and underwent EGD this morning-found to have moderate-sized hiatal hernia with evidence of esophagitis which is likely the culprit of his melena given recent NSAID use. GI cleared for discharge home with daily PPI, iron supplementation, repeat CBC in 6 weeks and repeat EGD in 3 months. He tolerated diet well. Denies any further bleeding, lightheadedness, dizziness, chest pain, shortness of breath. His echocardiogram and telemetry is unremarkable. He is comfortable and stable for discharge home. Reinforced against any further NSAID use. Total Time Total Time Spent Total Time Spent (In Minutes): 35 Discharge Plan Discharge Items Patient Disposition: Home - Self-Care Reason For Visit: LOW BP, UGIB Discharge Diagnosis: Esophagitis/Upper GI bleed due to NSAIDs intake, Acute blood loss anemia Condition on Discharge: Good Activity: Resume your previous activity Non-emergency contact: Primary Care Provider Call non-emergency contact if: you have any medication questions and your symptoms worsen Follow-up/Referrals: Renata Waters MD [Primary Care Provider] - 11/30/22 12:00 pm (Appt scheduled for 11/30; 12 pm) Diet: Regular Addtl Attending Provider Instructions: Please avoid any over the counter pain medications/NSAIDs except for tylenol. Continue omeprazole on empty stomach daily half hour before breakfast. You will need this for 12 weeks. Continue iron pill 1 tab daily for 6-8 weeks Recommend repeat blood work in 2-3 weeks (CBC) to ensure hemoglobin is improving Follow up with GI with repeat EGD in 3 months Follow up with your family doctor on November 30 pm. Pending Studies at Discharge: No Stand-Alone Forms: [employer], Smoking Cessation Medications and DC Order Prescriptions: New omeprazole 40 mg capsule,delayed release(DR/EC) 40 mg PO DAILY 30 Days Qty: 30 0RF ferrous sulfate [Feosol] 325 mg (65 mg iron) tablet 325 mg PO DAILY Qty: 30 0RF Continued Humira 40 mg/0.8 mL Syringe Kit 40 mg SUBCUT .[id number] Rx Instructions: DUE 11/18/22 lamotrigine 25 mg tablet 50 mg PO HS gabapentin 100 mg capsule 200 mg PO BID lurasidone 80 mg tablet 120 mg PO HS Rx Instructions: PER PT "DOSE JUST CHANGED TO 120 MG". Discharge Orders: Discharge Order (Routine); Ordered 11/17/22 Ordered By: Ayaz Roldan/Other Patient Handouts: Ferrous Gluconate Oral Tablet, Pantoprazole DR Oral Tab, GI Bleeding Causes and Tests Admission Data Admit Date/Time: 11/16/22 20:12 Attending Provider: Ayaz Walter Admit Provider: Manuel Paul Primary Care Provider: Renata Waters Other Providers: Manuel Paul ; Bautista Arce ; Amor Mayo ; Lissett Hurt ; Inga Mansfield ; Laura Quinn ; Estrellita Montgomery ; Ck Chandler ; Giovanni Sneed ; Ignacio Foster ; Aman Olea ; Jermaine Mitchell ; Debra Cruz ; Ermelinda Andrade ; Mirella Galo ; Lluvia Hackett ; Khadijah Avina ; Kelvin Hartman ; Jt García ; La Hendrix ; Vickie Brown Jr Other Interventions: Discharge Summary Assessment (RN) Last Done: 11/17/22 13:59
[2022-11-17] MEDS ORDERED: LURASIDONE HCL 40 MG TAB PO SCH (21:00)
[2022-11-17] MEDS ORDERED: lamoTRIgine 25 MG TAB PO SCH (21:00)
== END 2022-11-17 14:30 | disposition home or self-care (01) | DRG 368 ==
LOC: ED 17:09 → 4W 20:12

== ENCOUNTER 2023-03-24 23:05 | Inpatient (IN) ==
[~2023-03-24 23:05] MED LIST: RAPID SEQUENCE INDUCTION BAG ONE
[2023-03-24] MEDS ORDERED: SODIUM CHLORIDE 0.9% 1,000 ML IV SCH (23:15)
[2023-03-24 23:40] LABS: iSTAT Creatinine 1.3 mg/dl (0.6-1.3); iSTAT Hemoglobin 12.9 g/dl (14.0-18.0); iSTAT Ionized Calcium 1.05 mmol/l (1.12-1.32); iSTAT Potassium 3.6 mmol/L (3.3-5.0)
--- NOTE | 2023-03-24 23:42 | Emergency Department Note ---
Impression & Plan Overdose by ingestion, Respiratory failure, Alcohol intoxication, Suicide ED Provider Note Provider: Veto Bunn MD DATE OF SERVICE: 03/24/2023 CHIEF COMPLAINT: Overdose HISTORY OF PRESENT ILLNESS: Patient is a 27-year-old presenting via ambulance today after what appears to be an overdose. Patient evidently was being looked for by police as they were concerned that he might try to harm himself. Patient was found by roommates unresponsive. EMS states police were concerned he may anderson ve not pulse but patient had a pulse upon EMS arrival and was more in respiratory arrest. Patient bagged and intubated by EMS in the field. Received 2.5 mg of Versed for postintubation sedation. Reportedly 15 mg of Ativan was taken and possibly alcohol. Patient obviously unable provide history upon arrival. Psychiatric history in the past reported. No significant traumatic history reported. Discussion with police they were looking for meds over concerns as the patient made statements to his professor about ending his life and had some slurred speech around 6 PM. Possible ingestion of liquor and Ativan 15 mg at 530p. Patient found with sonorous agonal aspirations per police and out of abundance of caution started CPR until EMS arrival. Patient's mother has been advised by them of his status. PAST MEDICAL HISTORY: As noted above MEDICATIONS: Reviewed home medication list available in the EMR SOCIAL HISTORY: Lives with roommate evidently PHYSICAL EXAM: GENERAL: Intubated unresponsive on stretcher Head: normocephalic and atraumatic EYES: No injection, discharge or icterus. PERRL 4 mm bilaterally NECK: Trachea midline ENT: Mucous membranes pink and moist. ET tube in place 28 cm upon arrival LUNGS: Airway patent. No retractions occasional respiratory. Breath sounds s light diminished on the left HEART: Regular tachycardic rate and rhythm. No chest wall tenderness ABDOMEN: Soft and non-tender, without guarding or rebound. SKIN: Acyanotic, warm, dry, without rashes EXTREMITIES: Without swelling, tenderness or deformity NEUROLOGICAL: Not following commands. No response to painful stimuli. EK bpm sinus tachycardia. No PVC. Some respiratory artifact. No clear acute ST segment elevation with a QTc of 498. QRS 98 ms CONTINUOUS CARDIAC MONITORING: was ordered and showed a heart rate of bpm in 1 view chest x-ray per interpretation: No evidence of pneumothorax or free air in the abdomen. ET tube just over centimeter from the za Patient's laboratory studies and imaging reviewed. Differential includes Mood disorder, infection, hypoglycemia, electrolyte abnormalities, cardiac sources, intracerebral event, toxicologic, trauma, neurologic, as well as other pathologies. IMPRESSION/MEDICAL DECISION MAKING: Intubated field chest x-ray and capnography obtained here to ensure placement. CT the head will be obtained as well as cervical spine given the unresponsive episode to ensure no significant traumatic injury. No CV evidence of trauma on the patient. Toxicology labs and studies were ordered. EKG was ordered. EKG without significant abnormality. Chest x-ray obtained shows somewhat deep placement and ET tube removed [address] 18-gauge IV placed in the right forearm by myself for access in addition to the 18-gauge from field. Reviewed prior medical record in the system including prior pharmacy fills for possible other coingestions. Seems likely consistent with sedative such as Ativan. Given the question of his unresponsive episode and that he did receive some CPR, sent for CT of the head, cervical spine, as well as the chest. Not requiring pressors here. Lactate elevated likely secondary to the respiratory arrest and depression and arrest. Low suspicion this was actually a cardiac arrest. No ACLS meds or AED in the field. Did postintubation received 2 and half milligrams of Versed for EMS. No sedation here and minimally responsive. ET tube again adjusted after chest CT and retracted. Is somewhat acidotic with elevated lactate and VBG shows evidence of acidosis. Minute ventilation increased. Given bicarb drip in the ICU PRODUCTION COST ESTIMATOR at bedside. Salicylate and Tylenol therapeutic not severely louisa vation. Alcohol level elevated. COVID-negative. CT does show evidence of aspiration in the lungs. Will defer antibiotics to medical team and ICU. They were contacted. Did update the patient's mother to patient's status. Case management does show me multiple pages of what appear to be suicide notes and typed letters the patient evidently had expressing suicidal thoughts. 302 paperwork done DIAGNOSIS: Respiratory failure, suicide attempt by Ativan overdose, alcohol intoxication, aspiration DISPOSITION: Admission to the ICU for further care Critical Care I have personally spent 52 minutes of critical care time in the direct management of this patient. This includes bedside care, interpretation of diagnostic studies, and testing, discussion with consultants, patient, and family members, and other required patient management activities. These 52 minutes is in excess of all separately billable procedures. Past Med/Surg History Medical History Encounter for pre-operative examination Rheumatoid arthritis Schizoaffective disorder, bipolar type Suicidal ideations Vermiculation Surgical History No significant past surgical history Family History Other Back pain Social History Smoking Status: Unknown if ever smoked Second Hand Exposure: No; Do You Dip or Chew Tobacco: No; Hx Alcohol Use: No Hx Substance Use: No Preferred Language: Frisian Communication Ability: Effective Garment Inspector Required: No Beliefs That Will Affect Care: None marital status: Single Current Living Situation: Alone Current Living Situation Comment: college student current occupational status: student Feels Safe at Home: Yes Gender Identity: Nonbinary Assistive Devices: None Allergies Allergies Allergy/AdvReac Type Severity Reaction Status Date / Time azithromycin [From Zithromax] Allergy Intermediate Rash Verified 03/24/23 23:31 Home Meds Home Medications Medication Instructions Recorded Confirmed adalimumab 40 mg/0.4 mL 40 mg subcut DIRECTED 03/11/23 03/24/23 subcutaneous pen kit (Humira(CF) Pen) finasteride 5 mg tablet 5 mg PO DAILY 03/11/23 03/24/23 gabapentin 100 mg capsule 200 mg PO BID 03/11/23 03/24/23 lamotrigine 25 mg tablet (Lamictal) 50 mg PO QPM 03/11/23 03/24/23 lumateperone 42 mg capsule 42 mg PO QPM 03/11/23 03/24/23 (Caplyta) spironolactone 50 mg tablet 50 mg PO BID 03/11/23 03/24/23 estradiol 2 mg tablet 2 mg PO BID 03/24/23 03/24/23 lorazepam 0.5 mg tablet 0.5 mg PO Q8 PRN Anxiety 03/24/23 03/24/23 modafinil 100 mg tablet 100 mg PO DAILY 03/24/23 03/24/23 omeprazole 40 mg capsule,delayed 40 mg PO QAM 03/24/23 03/24/23 release trazodone 50 mg tablet 50 mg PO BID 03/24/23 03/24/23 Results & Data (ED) Vital Signs Vital Signs - 24 hr 03/24/23 23:16 03/24/23 23:20 03/24/23 23:37 Pulse Rate 104 H 108 H Pulse Rate [Right Finger] Respiratory Rate 23 24 Respiratory Effort / Characteristics Non-Labored Spontaneous Respiratory Depth Normal Respiratory Pattern Regular Blood Pressure 129/77 Blood Pressure [Right Arm] Blood Pressure Mean 94 Blood Pressure Mean [Right Arm] Pulse Oximetry 97 98 97 Oxygen Delivery Method Mechanical Vent Mechanical Vent Fraction of Inspired Oxygen 100 Sepsis Recent Fever Within 48 Hours No Sepsis New/Unexplained Change in Mental Status N/A Sepsis Action Taken by Nursing No Action Required End-Tidal CO2 31 03/24/23 23:50 03/24/23 23:54 03/25/23 00:01 Pulse Rate Pulse Rate [Right Finger] 94 H 99 H 93 H Respiratory Rate 16 23 22 Respiratory Effort / Characteristics Non-Labored Spontaneous Non-Labored Spontaneous Respiratory Depth Normal Normal Respiratory Pattern Blood Pressure Blood Pressure [Right Arm] 78/64 L 87/51 L 95/59 L Blood Pressure Mean Blood Pressure Mean [Right Arm] 68 63 71 Pulse Oximetry 97 93 95 Oxygen Delivery Method Mechanical Vent Mechanical Vent Mechanical Vent Fraction of Inspired Oxygen Sepsis Recent Fever Within 48 Hours Sepsis New/Unexplained Change in Mental Status Sepsis Action Taken by Nursing End-Tidal CO2 03/25/23 00:36 03/25/23 00:37 Pulse Rate Pulse Rate [Right Finger] 96 H Respiratory Rate 21 Respiratory Effort / Characteristics Non-Labored Spontaneous Respiratory Depth Normal Respiratory Pattern Blood Pressure Blood Pressure [Right Arm] 88/54 L 77/60 L Blood Pressure Mean Blood Pressure Mean [Right Arm] 65 65 Pulse Oximetry 95 Oxygen Delivery Method Mechanical Vent Fraction of Inspired Oxygen Sepsis Recent Fever Within 48 Hours Sepsis New/Unexplained Change in Mental Status Sepsis Action Taken by Nursing End-Tidal CO2 Laboratory Data 03/24/23 23:30 03/24/23 23:30 Lab Results 03/24/23 03/24/23 03/24/23 Range/Units 23:28 23:30 23:30 WBC 10.32 (4.8-10.8) K/ul RBC 4.74 (4.70-6.10) M/uL Hgb 12.2 L (14.0-18.0) g/dl POC Hgb 12.9 L (14.0-18.0) g/dl Hct 38.4 L (42.0-52.0) % POC Hct 38 L (42-52) % MCV 81.0 (80.0-100.0) fL MCH 25.7 (25.0-34.0) pg MCHC 31.8 L (32.0-36.0) g/dL RDW Std Deviation 48.7 H (36.4-46.3) fL RDW Coeff of Rene 16.9 H (11.5-14.5) % Plt Count 437 H (130-400) K/uL MPV 9.6 (9.4-12.4) fL Immature Gran % (Auto) 0.6 % Neut % (Auto) 82.5 % Lymph % (Auto) 15.9 % Hendry % (Auto) 0.7 % Eos % (Auto) 0.1 % Baso % (Auto) 0.2 % Neut # (Auto) 8.52 H (1.40-6.50) K/uL Lymph # (Auto) 1.64 (1.20-3.40) K/uL [place]ry # (Auto) 0.07 L (0.11-0.59) K/uL Eos # (Auto) 0.01 (0.00-0.50) K/uL Baso # (Auto) 0.02 (0.00-0.20) K/uL Immature Gran # (Auto) 0.06 (0.01-0.20) K/uL PT 11.7 (9.0-12.0) Seconds INR 1.1 (0.9-1.1) POC pH (7.35-7.45) POC pCO2 (35-46) mmHg POC pO2 (80-95) mmHg POC HCO3 (19-24) janette/L POC Base Excess (-9-1.8) janette/L POC ABG O2 Sat (90-95) % POC Sodium 142 (135-144) mmol/L Sodium (136-145) mmol/L POC Potassium 3.6 (3.3-5.0) mmol/L Potassium (3.5-5.1) mmol/L POC Chloride 108 (101-112) mmol/L Chloride (98-107) mmol/L Carbon Dioxide (21-32) mmol/L POC Total CO2 21 L (24-31) mmol/L Anion Gap (3-11) POC Anion Gap 17.0 (16-25) mmol/L POC BUN 15 (7-18) mg/dl BUN (6-23) mg/dl Creatinine (0.6-1.4) mg/dl POC Creatinine 1.3 (0.6-1.3) mg/dl Est Cr Clr Drug Dosing ml/min Est GFR ( Amer) ml/min Est GFR (Non-Af Amer) ml/min BUN/Creatinine Ratio (10-20) Glucose (70-99(Fasting)) mg/dl POC Glucose (other) 217 H (70-99) mg/dl Lactate (0.4-2.0) mmol/L Calcium (8.6-10.3) mg/dl POC Ioniz Calcium Akbar 1.05 L (1.12-1.32) mmol/l Magnesium (1.7-2.4) mg/dl Total Bilirubin (0.2-1.0) mg/dl AST (13-39) U/L ALT (7-52) U/L Alkaline Phosphatase (34-104) U/L Total Creatine Kinase (30-223) U/L Troponin I High Sens (0-20) pg/ml Total Protein (6.0-8.3) gm/dl Albumin (3.4-5.0) gm/dl Globulin (2.5-4.0) gm/dl Albumin/Globulin Ratio (0.9-2) Lipase (11-82) U/L Urine Color Urine Appearance (Clear) Urine pH (4.5-7.5) Ur Specific [place] (1.000-1.030) Urine Protein (Negative) Urine Glucose (UA) (Negative) Urine Ketones (Negative) Urine Blood (Negative) Urine Nitrite (Negative) Urine Bilirubin (Negative) Urine Urobilinogen (Negative) Ur Leukocyte Esterase (Negative) Urine WBC (Auto) (0-5) /hpf Urine RBC (Auto) (0-4) /hpf U Hyaline Cast (Auto) (0-5) /lpf U Epithel Cells (Auto) (0-5) /lpf Urine Bacteria (Auto) (Negative) Salicylates (3.0-30) mg/dl Urine Opiates Screen (Neg) Ur Methadone, Qual (Neg) Acetaminophen (10-30) ug/ml Urine Barbiturates (Neg) Ur Phencyclidine (PCP) (Neg) U Amphetamin/Meth Scrn (Neg) MDMA (Ecstasy) Screen (Neg) U Benzodiazepines Scrn (Neg) Ur Cocaine Metabolite (Neg) U Marijuana (THC) Screen (Neg) Ethyl Alcohol mg/dL (<10.0) mg/dl SARS-CoV-2, RNA, NAAT (NEGATIVE) 03/24/23 03/24/23 03/24/23 Range/Units 23:30 23:30 23:30 WBC (4.8-10.8) K/ul RBC (4.70-6.10) M/uL Hgb (14.0-18.0) g/dl POC Hgb (14.0-18.0) g/dl Hct (42.0-52.0) % POC Hct (42-52) % MCV (80.0-100.0) fL MCH (25.0-34.0) pg MCHC (32.0-36.0) g/dL RDW Std Deviation (36.4-46.3) fL RDW Coeff of Rene (11.5-14.5) % Plt Count (130-400) K/uL MPV (9.4-12.4) fL Immature Gran % (Auto) % Neut % (Auto) % Lymph % (Auto) % [place] % (Auto) % Eos % (Auto) % Baso % (Auto) % Neut # (Auto) (1.40-6.50) K/uL Lymph # (Auto) (1.20-3.40) K/uL [place] # (Auto) (0.11-0.59) K/uL Eos # (Auto) (0.00-0.50) K/uL Baso # (Auto) (0.00-0.20) K/uL Immature Gran # (Auto) (0.01-0.20) K/uL PT (9.0-12.0) Seconds INR (0.9-1.1) POC pH (7.35-7.45) POC pCO2 (35-46) mmHg POC pO2 (80-95) mmHg POC HCO3 (19-24) janette/L POC Base Excess (-9-1.8) janette/L POC ABG O2 Sat (90-95) % POC Sodium (135-144) mmol/L Sodium 140 (136-145) mmol/L POC Potassium (3.3-5.0) mmol/L Potassium 3.6 (3.5-5.1) mmol/L POC Chloride (101-112) mmol/L Chloride 108 H (98-107) mmol/L Carbon Dioxide 19 L (21-32) mmol/L POC Total CO2 (24-31) mmol/L Anion Gap 13 H (3-11) POC Anion Gap (16-25) mmol/L POC BUN (7-18) mg/dl BUN 15 (6-23) mg/dl Creatinine 1.20 (0.6-1.4) mg/dl POC Creatinine (0.6-1.3) mg/dl Est Cr Clr Drug Dosing 137.1 ml/min Est GFR ( Amer) 96.8 ml/min Est GFR (Non-Af Amer) 83.5 ml/min BUN/Creatinine Ratio 12.5 (10-20) Glucose 215 H (70-99(Fasting)) mg/dl POC Glucose (other) (70-99) mg/dl Lactate (0.4-2.0) mmol/L Calcium 7.7 L (8.6-10.3) mg/dl POC Ioniz Calcium Akbar (1.12-1.32) mmol/l Magnesium 2.1 (1.7-2.4) mg/dl Total Bilirubin 0.4 (0.2-1.0) mg/dl AST 54 H (13-39) U/L ALT 63 H (7-52) U/L Alkaline Phosphatase 68 (34-104) U/L Total Creatine Kinase 102 (30-223) U/L Troponin I High Sens 19.7 (0-20) pg/ml Total Protein 7.2 (6.0-8.3) gm/dl Albumin 3.8 (3.4-5.0) gm/dl Globulin 3.4 (2.5-4.0) gm/dl Albumin/Globulin Ratio 1.1 (0.9-2) Lipase 38 (11-82) U/L Urine Color Urine Appearance (Clear) Urine pH (4.5-7.5) Ur Specific [place] (1.000-1.030) Urine Protein (Negative) Urine Glucose (UA) (Negative) Urine Ketones (Negative) Urine Blood (Negative) Urine Nitrite (Negative) Urine Bilirubin (Negative) Urine Urobilinogen (Negative) Ur Leukocyte Esterase (Negative) Urine WBC (Auto) (0-5) /hpf Urine RBC (Auto) (0-4) /hpf U Hyaline Cast (Auto) (0-5) /lpf U Epithel Cells (Auto) (0-5) /lpf Urine Bacteria (Auto) (Negative) Salicylates 8.9 (3.0-30) mg/dl Urine Opiates Screen (Neg) Ur Methadone, Qual (Neg) Acetaminophen 19 (10-30) ug/ml Urine Barbiturates (Neg) Ur Phencyclidine (PCP) (Neg) U Amphetamin/Meth Scrn (Neg) MDMA (Ecstasy) Screen (Neg) U Benzodiazepines Scrn (Neg) Ur Cocaine Metabolite (Neg) U Marijuana (THC) Screen (Neg) Ethyl Alcohol mg/dL 175.0 H (<10.0) mg/dl SARS-CoV-2, RNA, NAAT (NEGATIVE) 03/24/23 03/24/23 03/24/23 Range/Units 23:30 23:30 23:30 WBC (4.8-10.8) K/ul RBC (4.70-6.10) M/uL Hgb (14.0-18.0) g/dl POC Hgb (14.0-18.0) g/dl Hct (42.0-52.0) % POC Hct (42-52) % MCV (80.0-100.0) fL MCH (25.0-34.0) pg MCHC (32.0-36.0) g/dL RDW Std Deviation (36.4-46.3) fL RDW Coeff of Rene (11.5-14.5) % Plt Count (130-400) K/uL MPV (9.4-12.4) fL Immature Gran % (Auto) % Neut % (Auto) % Lymph % (Auto) % [place] % (Auto) % Eos % (Auto) % Baso % (Auto) % Neut # (Auto) (1.40-6.50) K/uL Lymph # (Auto) (1.20-3.40) K/uL [place] # (Auto) (0.11-0.59) K/uL Eos # (Auto) (0.00-0.50) K/uL Baso # (Auto) (0.00-0.20) K/uL Immature Gran # (Auto) (0.01-0.20) K/uL PT (9.0-12.0) Seconds INR (0.9-1.1) POC pH (7.35-7.45) POC pCO2 (35-46) mmHg POC pO2 (80-95) mmHg POC HCO3 (19-24) janette/L POC Base Excess (-9-1.8) janette/L POC ABG O2 Sat (90-95) % POC Sodium (135-144) mmol/L Sodium (136-145) mmol/L POC Potassium (3.3-5.0) mmol/L Potassium (3.5-5.1) mmol/L POC Chloride (101-112) mmol/L Chloride (98-107) mmol/L Carbon Dioxide (21-32) mmol/L POC Total CO2 (24-31) mmol/L Anion Gap (3-11) POC Anion Gap (16-25) mmol/L POC BUN (7-18) mg/dl BUN (6-23) mg/dl Creatinine (0.6-1.4) mg/dl POC Creatinine (0.6-1.3) mg/dl Est Cr Clr Drug Dosing ml/min Est GFR ( Amer) ml/min Est GFR (Non-Af Amer) ml/min BUN/Creatinine Ratio (10-20) Glucose (70-99(Fasting)) mg/dl POC Glucose (other) (70-99) mg/dl Lactate 5.3 H* (0.4-2.0) mmol/L Calcium (8.6-10.3) mg/dl POC Ioniz Calcium Akbar (1.12-1.32) mmol/l Magnesium (1.7-2.4) mg/dl Total Bilirubin (0.2-1.0) mg/dl AST (13-39) U/L ALT (7-52) U/L Alkaline Phosphatase (34-104) U/L Total Creatine Kinase (30-223) U/L Troponin I High Sens (0-20) pg/ml Total Protein (6.0-8.3) gm/dl Albumin (3.4-5.0) gm/dl Globulin (2.5-4.0) gm/dl Albumin/Globulin Ratio (0.9-2) Lipase (11-82) U/L Urine Color Yellow Urine Appearance Clear (Clear) Urine pH 5.5 (4.5-7.5) Ur Specific [place] 1.021 (1.000-1.030) Urine Protein 1+ H (Negative) Urine Glucose (UA) Trace H (Negative) Urine Ketones Trace H (Negative) Urine Blood Negative (Negative) Urine Nitrite Negative (Negative) Urine Bilirubin Negative (Negative) Urine Urobilinogen Negative (Negative) Ur Leukocyte Esterase Negative (Negative) Urine WBC (Auto) 1-5 (0-5) /hpf Urine RBC (Auto) 0-4 (0-4) /hpf U Hyaline Cast (Auto) 10-30 H (0-5) /lpf U Epithel Cells (Auto) 10-20 H (0-5) /lpf Urine Bacteria (Auto) Negative (Negative) Salicylates (3.0-30) mg/dl Urine Opiates Screen Neg (Neg) Ur Methadone, Qual Neg (Neg) Acetaminophen (10-30) ug/ml Urine Barbiturates Neg (Neg) Ur Phencyclidine (PCP) Neg (Neg) U Amphetamin/Meth Scrn Neg (Neg) MDMA (Ecstasy) Screen Neg (Neg) U Benzodiazepines Scrn Neg (Neg) Ur Cocaine Metabolite Neg (Neg) U Marijuana (THC) Screen Neg (Neg) Ethyl Alcohol mg/dL (<10.0) mg/dl SARS-CoV-2, RNA, NAAT (NEGATIVE) 03/24/23 03/25/23 Range/Units Unknown 00:21 WBC (4.8-10.8) K/ul RBC (4.70-6.10) M/uL Hgb (14.0-18.0) g/dl POC Hgb 11.9 L (14.0-18.0) g/dl Hct (42.0-52.0) % POC Hct 35 L (42-52) % MCV (80.0-100.0) fL MCH (25.0-34.0) pg MCHC (32.0-36.0) g/dL RDW Std Deviation (36.4-46.3) fL RDW Coeff of Rene (11.5-14.5) % Plt Count (130-400) K/uL MPV (9.4-12.4) fL Immature Gran % (Auto) % Neut % (Auto) % Lymph % (Auto) % [place] % (Auto) % Eos % (Auto) % Baso % (Auto) % Neut # (Auto) (1.40-6.50) K/uL Lymph # (Auto) (1.20-3.40) K/uL [place] # (Auto) (0.11-0.59) K/uL Eos # (Auto) (0.00-0.50) K/uL Baso # (Auto) (0.00-0.20) K/uL Immature Gran # (Auto) (0.01-0.20) K/uL PT (9.0-12.0) Seconds INR (0.9-1.1) POC pH 7.17 L* (7.35-7.45) POC pCO2 48 H (35-46) mmHg POC pO2 48 L (80-95) mmHg POC HCO3 18 L (19-24) janette/L POC Base Excess -11.0 L (-9-1.8) janette/L POC ABG O2 Sat 73.0 L (90-95) % POC Sodium 141 (135-144) mmol/L Sodium (136-145) mmol/L POC Potassium 4.5 (3.3-5.0) mmol/L Potassium (3.5-5.1) mmol/L POC Chloride (101-112) mmol/L Chloride (98-107) mmol/L Carbon Dioxide (21-32) mmol/L POC Total CO2 19 L (24-31) mmol/L Anion Gap (3-11) POC Anion Gap (16-25) mmol/L POC BUN (7-18) mg/dl BUN (6-23) mg/dl Creatinine (0.6-1.4) mg/dl POC Creatinine (0.6-1.3) mg/dl Est Cr Clr Drug Dosing ml/min Est GFR ( Amer) ml/min Est GFR (Non-Af Amer) ml/min BUN/Creatinine Ratio (10-20) Glucose (70-99(Fasting)) mg/dl POC Glucose (other) (70-99) mg/dl Lactate (0.4-2.0) mmol/L Calcium (8.6-10.3) mg/dl POC Ioniz Calcium Akbar (1.12-1.32) mmol/l Magnesium (1.7-2.4) mg/dl Total Bilirubin (0.2-1.0) mg/dl AST (13-39) U/L ALT (7-52) U/L Alkaline Phosphatase (34-104) U/L Total Creatine Kinase (30-223) U/L Troponin I High Sens (0-20) pg/ml Total Protein (6.0-8.3) gm/dl Albumin (3.4-5.0) gm/dl Globulin (2.5-4.0) gm/dl Albumin/Globulin Ratio (0.9-2) Lipase (11-82) U/L Urine Color Urine Appearance (Clear) Urine pH (4.5-7.5) Ur Specific [place] (1.000-1.030) Urine Protein (Negative) Urine Glucose (UA) (Negative) Urine Ketones (Negative) Urine Blood (Negative) Urine Nitrite (Negative) Urine Bilirubin (Negative) Urine Urobilinogen (Negative) Ur Leukocyte Esterase (Negative) Urine WBC (Auto) (0-5) /hpf Urine RBC (Auto) (0-4) /hpf U Hyaline Cast (Auto) (0-5) /lpf U Epithel Cells (Auto) (0-5) /lpf Urine Bacteria (Auto) (Negative) Salicylates (3.0-30) mg/dl Urine Opiates Screen (Neg) Ur Methadone, Qual (Neg) Acetaminophen (10-30) ug/ml Urine Barbiturates (Neg) Ur Phencyclidine (PCP) (Neg) U Amphetamin/Meth Scrn (Neg) MDMA (Ecstasy) Screen (Neg) U Benzodiazepines Scrn (Neg) Ur Cocaine Metabolite (Neg) U Marijuana (THC) Screen (Neg) Ethyl Alcohol mg/dL (<10.0) mg/dl SARS-CoV-2, RNA, NAAT NEGATIVE (NEGATIVE) Administered Medications Lactated Ringer's (Lr) 1,000 mls @ 999 mls/hr IV .Q1H1M ONE Stop: 03/25/23 01:14 Last Admin: 03/25/23 00:21 Dose: 999 mls/hr Documented By: KEI Discontinued Medications Sodium Chloride (Nss) 1,000 mls @ 999 mls/hr IV .Q1H1M KIKA Stop: 03/25/23 00:15 Last Infusion: 03/25/23 00:22 Dose: 0 mls/hr Documented By: Admin: 03/24/23 23:30 Dose: 999 mls/hr Documented By: KEI Thiamine HCl 100 mg/ Syringe 10 mls @ 2 mls/min IV NOW STA Stop: 03/25/23 00:18 Last Admin: 03/25/23 00:23 Dose: 2 mls/min Documented By: KEI Ioversol (Optiray 320 500ml) 125 ml IV ONCE ONE Stop: 03/24/23 23:56 Last Admin: 03/24/23 23:55 Dose: 111 ml Documented By: CT Miscellaneous (Rapid Sequence Induction Bag) Confirm Administered Dose 1 each N/A .STK-MED ONE Stop: 03/24/23 22:57 Last Admin: 03/25/23 00:23 Dose: Not Given Documented By: KEI Sodium Bicarbonate (Sodium Bicarb 8.4% Inj 50 Meq/50 Ml Syr) 50 meq IV NOW STA Stop: 03/25/23 00:28 Last Admin: 03/25/23 00:32 Dose: 50 meq Documented By: KEI Imaging Data Radiologist's Impression: Cervical Spine CT 03/24/23 23:11 Exam(s): CT C SPINE EXAM: CT Cervical Spine Without Intravenous Contrast CLINICAL HISTORY: Reason for exam: ams, od. TECHNIQUE: Axial computed tomography images of the cervical spine without intravenous contrast. CTDI is 28.14 mGy and DLP is 866.59 mGy-cm. Automated exposure control was utilized for the study. A dose lowering technique was utilized adhering to the principles of ALARA. COMPARISON: No relevant prior studies available. FINDINGS: Vertebrae: Unremarkable. No acute fracture. Discs/spinal canal/neural foramina: No acute findings. No spinal canal stenosis. Soft tissues: Unremarkable. IMPRESSION: Normal cervical spine CT. Electronically signed by: Chris Wagoner MD 03/25/23 00:[address] 03/24/23 23:11 Exam(s): CT CHEST With Contrast IV Amt: 111 ML OPTIRAY 320 EXAM: CT Chest With Intravenous Contrast CLINICAL HISTORY: Reason for exam: od, CPR in field. TECHNIQUE: Axial computed tomography images of the chest with intravenous contrast. CTDI is 28.14 mGy and DLP is 866.59 mGy-cm. Automated exposure control was utilized for the study. A dose lowering technique was utilized adhering to the principles of ALARA. CONTRAST: Patient received 111 ML OPTIRAY 320 of IV contrast COMPARISON: No relevant prior studies available. FINDINGS: Lungs: Consolidations in the posterior aspect of both upper lobes and lower lobes. Pleural space: Unremarkable. No pneumothorax. No significant effusion. Heart: Unremarkable. No cardiomegaly. No significant pericardial effusion. Bones/joints: Unremarkable. No acute fracture. No dislocation. Soft tissues: Unremarkable. Vasculature: Unremarkable. No thoracic aortic aneurysm. Lymph nodes: Unremarkable. No enlarged lymph nodes. Tubes, lines and devices: The tip of the endotracheal tube is at the origin of the right main bronchus. IMPRESSION: Consolidations in the posterior aspects of both upper lobes and both lower lobes. Much of this may represent atelectasis; however, it may also represent infiltration. Aspiration pneumonia is possible in the setting of an OD. The tip of the endotracheal tube is near the origin of the right main bronchus and can be pulled back at least 3-4 cm. Electronically signed by: Chris Wagoner MD 03/25/23 00:[address] 03/24/23 23:13 Exam(s): CT HEAD Without Contrast EXAM: CT Head Without Intravenous Contrast CLINICAL HISTORY: Reason for exam: do, ams. TECHNIQUE: Axial computed tomography images of the head/brain without intravenous contrast. CTDI is 49.72 mGy and DLP is 983.45 mGy-cm. Automated exposure control was utilized for the study. A dose lowering technique was utilized adhering to the principles of ALARA. COMPARISON: No relevant prior studies available. FINDINGS: Brain: Unremarkable. No acute intracranial hemorrhage, edema or abnormal mass-effect. Ventricles: Unremarkable. No ventriculomegaly. Bones/joints: Unremarkable. No acute fracture. Soft tissues: Unremarkable. Sinuses: Unremarkable as visualized. No acute sinusitis. Mastoid air cells: Unremarkable as visualized. No mastoid effusion. IMPRESSION: Normal head/brain CT. Electronically signed by: Chris Wagoner MD 03/25/23 00:11 AM Discharge Plan Visit Data Chief Complaint: Overdose (Intentional) ED Provider: Veto Bunn Discharge Problem: Overdose by ingestion, Respiratory failure, Alcohol intoxication, Suicide Patient Disposition: Being Evaluated by Hospitalist Forms Stand Alone Forms: [facility], Suicide Prevention Resources Prescriptions Prescriptions: No Action Caplyta 42 mg capsule 42 mg PO QPM Humira(CF) Pen 40 mg/0.4 mL pen injector kit 40 mg SUBCUT DIRECTED lamotrigine [Lamictal] 25 mg tablet 50 mg PO QPM spironolactone 50 mg tablet 50 mg PO BID gabapentin 100 mg capsule 200 mg PO BID Rx Instructions: morning and afternoonj finasteride 5 mg tablet 5 mg PO DAILY omeprazole 40 mg capsule,delayed release(DR/EC) 40 mg PO QAM lorazepam 0.5 mg tablet 0.5 mg PO Q8 PRN (Reason: Anxiety) estradiol 2 mg tablet 2 mg PO BID trazodone 50 mg tablet 50 mg PO BID Rx Instructions: take in morning and afternoon modafinil 100 mg tablet 100 mg PO DAILY Referrals Referrals: Renata Waters MD [Primary Care Provider] -
[2023-03-24 23:49] LABS: Basophils # (auto) 0.02 K/uL (0.00-0.20); Basophils % (auto) 0.2 %; Eosinophils # (auto) 0.01 K/uL (0.00-0.50); Eosinophils % (auto) 0.1 %; Hematocrit (blood only) 38.4 % (42.0-52.0); Hemoglobin 12.2 g/dl (14.0-18.0); Immature Granulocytes # (auto) 0.06 K/uL (0.01-0.20); Immature Granulocytes % (auto) 0.6 %; Lymphocytes # (auto) 1.64 K/uL (1.20-3.40); Lymphocytes % (auto) 15.9 %; Mean Corpuscular Hemoglobin 25.7 pg (25.0-34.0); Mean Corpuscular Hgb Conc 31.8 g/dL (32.0-36.0); Mean Platelet Volume 9.6 fL (9.4-12.4); Monocytes # (auto) 0.07 K/uL (0.11-0.59); Monocytes % (auto) 0.7 %; Neutrophils # (auto) 8.52 K/uL (1.40-6.50); Neutrophils % (auto) 82.5 %; Platelet Count 437 K/uL (130-400); RDW Coefficient of Variation 16.9 % (11.5-14.5); RDW Standard Deviation 48.7 fL (36.4-46.3); Red Blood Count 4.74 M/uL (4.70-6.10); White Blood Count 10.32 K/ul (4.8-10.8)
[2023-03-24 23:54] LABS: Appearance Urine Clear (Clear); Bacteria Urine Automated Negative (Negative); Bilirubin Urine Negative (Negative); Blood Urine Negative (Negative); Color Urine Yellow; Glucose Urine UA Trace (Negative); Ketones Urine Trace (Negative); Leukocyte Esterase Urine Negative (Negative); Nitrite Urine Negative (Negative); Protein Urine 1+ (Negative); RBC Urine Automated 0-4 /hpf (0-4); Specific Gravity Urine 1.021 (1.000-1.030); Urobilinogen Urine Negative (Negative); pH Urine 5.5 (4.5-7.5)
[2023-03-24] MEDS ORDERED: OPTIRAY 320 500ml IV ONE (23:55)
[2023-03-25] LABS: Salicylate 8.9 mg/dl (3.0-30)
[2023-03-25 00:03] LABS: Albumin Globulin Ratio 1.1 (0.9-2); Albumin Level 3.8 gm/dl (3.4-5.0); BUN Creatinine Ratio 12.5 (10-20); Bilirubin,Total 0.4 mg/dl (0.2-1.0); Calcium 7.7 mg/dl (8.6-10.3); Creatinine Clr Calc Pharmacy 137.1 ml/min; Est GFR (African American) 96.8 ml/min; Est GFR (Non-African American) 83.5 ml/min; Globulin 3.4 gm/dl (2.5-4.0); Magnesium 2.1 mg/dl (1.7-2.4); Potassium 3.6 mmol/L (3.5-5.1); Total Protein 7.2 gm/dl (6.0-8.3)
[2023-03-25 00:09] LABS: Troponin I High Sensitivity 19.7 pg/ml (0-20)
[2023-03-25 00:12] LABS: Amphetamines+Metham, Urine Neg (Neg); Barbiturates, Urine Neg (Neg); Benzodiazepine, Urine Neg (Neg); Cocaine, Urine Neg (Neg); INR 1.1 (0.9-1.1); MDMA (Ecstacy), Urine Neg (Neg); Methadone, Urine Neg (Neg); Opiate, Urine Neg (Neg); Phencyclidine, Urine Neg (Neg); Prothrombin Time 11.7 Seconds (9.0-12.0)
--- NOTE | 2023-03-25 00:13 | CT Scan Report ---
Exam(s): CT HEAD Without Contrast EXAM: CT Head Without Intravenous Contrast CLINICAL HISTORY: Reason for exam: do, ams. TECHNIQUE: Axial computed tomography images of the head/brain without intravenous contrast. CTDI is 49.72 mGy and DLP is 983.45 mGy-cm. Automated exposure control was utilized for the study. A dose lowering technique was utilized adhering to the principles of ALARA. COMPARISON: No relevant prior studies available. FINDINGS: Brain: Unremarkable. No acute intracranial hemorrhage, edema or abnormal mass-effect. Ventricles: Unremarkable. No ventriculomegaly. Bones/joints: Unremarkable. No acute fracture. Soft tissues: Unremarkable. Sinuses: Unremarkable as visualized. No acute sinusitis. Mastoid air cells: Unremarkable as visualized. No mastoid effusion. IMPRESSION: Normal head/brain CT. Electronically signed by: Chris Wagoner MD 03/25/23 00:11 AM
[2023-03-25] MEDS ORDERED: LACTATED RINGER'S 1,000 ML IV ONE ×3 (00:14→01:30)
[2023-03-25] MEDS ORDERED: THIAMINE HCL 100 MG in SYRINGE 9 ML IV STA (00:14)
--- NOTE | 2023-03-25 00:14 | CT Scan Report ---
Exam(s): CT C SPINE EXAM: CT Cervical Spine Without Intravenous Contrast CLINICAL HISTORY: Reason for exam: ams, od. TECHNIQUE: Axial computed tomography images of the cervical spine without intravenous contrast. CTDI is 28.14 mGy and DLP is 866.59 mGy-cm. Automated exposure control was utilized for the study. A dose lowering technique was utilized adhering to the principles of ALARA. COMPARISON: No relevant prior studies available. FINDINGS: Vertebrae: Unremarkable. No acute fracture. Discs/spinal canal/neural foramina: No acute findings. No spinal canal stenosis. Soft tissues: Unremarkable. IMPRESSION: Normal cervical spine CT. Electronically signed by: Chris Wagoner MD 03/25/23 00:13 AM
--- NOTE | 2023-03-25 00:19 | CT Scan Report ---
Exam(s): CT CHEST With Contrast IV Amt: 111 ML OPTIRAY 320 EXAM: CT Chest With Intravenous Contrast CLINICAL HISTORY: Reason for exam: od, CPR in field. TECHNIQUE: Axial computed tomography images of the chest with intravenous contrast. CTDI is 28.14 mGy and DLP is 866.59 mGy-cm. Automated exposure control was utilized for the study. A dose lowering technique was utilized adhering to the principles of ALARA. CONTRAST: Patient received 111 ML OPTIRAY 320 of IV contrast COMPARISON: No relevant prior studies available. FINDINGS: Lungs: Consolidations in the posterior aspect of both upper lobes and lower lobes. Pleural space: Unremarkable. No pneumothorax. No significant effusion. Heart: Unremarkable. No cardiomegaly. No significant pericardial effusion. Bones/joints: Unremarkable. No acute fracture. No dislocation. Soft tissues: Unremarkable. Vasculature: Unremarkable. No thoracic aortic aneurysm. Lymph nodes: Unremarkable. No enlarged lymph nodes. Tubes, lines and devices: The tip of the endotracheal tube is at the origin of the right main bronchus. IMPRESSION: Consolidations in the posterior aspects of both upper lobes and both lower lobes. Much of this may represent atelectasis; however, it may also represent infiltration. Aspiration pneumonia is possible in the setting of an OD. The tip of the endotracheal tube is near the origin of the right main bronchus and can be pulled back at least 3-4 cm. Electronically signed by: Chris Wagoner MD 03/25/23 00:18 AM
[2023-03-25] MEDS ORDERED: SODIUM BICARB 8.4% INJ 50 MEQ/50 ML SYR IV STA (00:27)
[2023-03-25 00:36] LABS: iSTAT Arterial Blood Gas HCO3 18 meg/L (19-24); iSTAT Arterial Blood Gas pCO2 48 mmHg (35-46); iSTAT Arterial Blood Gas pH 7.17 (7.35-7.45); iSTAT Arterial Blood Gas pO2 48 mmHg (80-95); iSTAT Carbon Dioxide 19 mmol/L (24-31); iSTAT Hematocrit 35 % (42-52); iSTAT Hemoglobin 11.9 g/dl (14.0-18.0); iSTAT Potassium 4.5 mmol/L (3.3-5.0); iSTAT Sodium 141 mmol/L (135-144)
--- NOTE | 2023-03-25 00:37 | History & Physical Report ---
Date of Service March 25, 2023 Assessment & Plan (1) Hypotension: Plan: Hypotension secondary to hypovolemia secondary to UGIB Past history NSAID esophagitis Hypoxemic, hypercapnic respiratory failure secondary to intentional benzo overdose hx schizoaffective disorder/anxiety/mood disorder/ADD Chronic anemia, hemoglobin currently at baseline from last month Combined respiratory/metabolic acidosis secondary to hypovolemia, intentional benzo overdose ANUEL CPAP intolerance hx congenital nasal septal deviation status post surgery ICU Vent management Follow toxicology recommendations IVF IV PPI Follow H&H, transfuse PRBC if hemoglobin less than 7 and or for symptomatic anemia GI consult re: recurrent UGIB Psych consult, suicide precautions once patient extubated RE suicidality DVT prophylaxis. SCDs Re: UGIB Full code Patient mother requesting updates providers. Ms. Jose Mckeon, contact #[phone]. Total critical care time was 40 minutes. Text document was generated using [employer] voice recognition software. It may contain grammatical or spelling errors. Kindly contact undersigned for clarification of any documentation item in question. History of Present Illness Chief Complaint: Drug overdose as per records Primary Care Provider: Renata Waters MD History obtained from patient family and records. Medical history significant for GERD, ANUEL CPAP intolerance, seronegative RA, schizoaffective disorder, anxiety/mood disorder, ADD, anosmia secondary to congenital nasal septal deviation status post surgery. Last confinement 2 months ago for UGIB secondary to esophagitis secondary to NSAID use. Patient discharged on PPI course. Repeat EGD recommended after 3 months. Outpatient schedule 2 weeks ago canceled. Recent ER visit 2 weeks ago for suicidal intent. Patient discharged to [facility] where patient stayed for 2 days. Patient seemed stressed out with school work as per mother (based in [facility]) last time she spoke to patient over the phone 2 days ago. Patient mother not concerned about alcohol abuse. Patient verbalized suicidal intent to a professor today. Noted to have slurred speech. Police alerted and found patient at his apartment minimally responsive. Patient took 15 mg of Ativan along with alcohol as per report. CPR initiated by police due to agonal respiration and uncertainty about presence of patient pulse. EMS alerted by police. Patient subsequently intubated. O2 sats 80s, Initial SBP at the ER 70s. Bloody OGT drainage noted at the ER. 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) Allergies Allergy/AdvReac Type Severity Reaction Status Date / Time azithromycin [From Zithromax] Allergy Intermediate Rash Verified 03/24/23 23:31 Home Medications Medication Instructions Recorded Confirmed Type adalimumab 40 mg/0.4 mL 40 mg subcut DIRECTED 03/11/23 03/24/23 History subcutaneous pen kit (Humira(CF) Pen) finasteride 5 mg tablet 5 mg PO DAILY 03/11/23 03/24/23 History gabapentin 100 mg capsule 200 mg PO BID 03/11/23 03/24/23 History lamotrigine 25 mg tablet (Lamictal) 50 mg PO QPM 03/11/23 03/24/23 History lumateperone 42 mg capsule 42 mg PO QPM 03/11/23 03/24/23 History (Caplyta) spironolactone 50 mg tablet 50 mg PO BID 03/11/23 03/24/23 History estradiol 2 mg tablet 2 mg PO BID 03/24/23 03/24/23 History lorazepam 0.5 mg tablet 0.5 mg PO Q8 PRN Anxiety 03/24/23 03/24/23 History modafinil 100 mg tablet 100 mg PO DAILY 03/24/23 03/24/23 History omeprazole 40 mg capsule,delayed 40 mg PO QAM 03/24/23 03/24/23 History release trazodone 50 mg tablet 50 mg PO BID 03/24/23 03/24/23 History Past Med/Surg History Medical History Encounter for pre-operative examination Vermiculation Schizoaffective disorder, bipolar type Suicidal ideations Rheumatoid arthritis Surgical History No significant past surgical history Family History Other Back pain Social History Smoking Status: Never smoker Second Hand Exposure: No; Do You Dip or Chew Tobacco: No; Preferred Language: Trinidadian Communication Ability: Impaired Communication Ability Comment: unable to assess currently intubated Cook Morning Required: No Beliefs That Will Affect Care: None marital status: Single Current Living Situation: Alone Current Living Situation Comment: college student current occupational status: student Other Information That Helps Us Care for You: No Feels Safe at Home: Yes Safety Concerns: Feels Safe At This Time Gender Identity: Nonbinary Assistive Devices: None Review of Systems Review of Systems: Could not be reliably obtained secondary to intubated state. Physical Exam Physical Exam: GENERAL: Morbidly obese, intubated, no respiratory distress SKIN: Pallor, cool HEENT: Pale palpebral conjunctivae, no ptosis, dry buccal mucosa, ET in place, NECK : Supple, short neck, no tenderness CHEST : Decreased breath sounds, no tenderness HEART : RRR, no obvious murmurs ABDOMEN: Some distention, no tenderness EXTREMITIES : No LE swelling/tenderness, no other conspicuous deformities noted NEUROLOGIC : Sedated, no facial asymmetry, gait and stance not assessed Results & Data Results & Data Vital Signs (Past 12 Hours) Vital Signs Pulse Pulse Resp BP BP Pulse Ox O2 Del Method 03/25/23 00:36 96 H 21 88/54 L 95 Mechanical Vent 03/25/23 00:01 93 H 22 95/59 L 95 Mechanical Vent 03/24/23 23:54 99 H 23 87/51 L 93 Mechanical Vent 03/24/23 23:50 94 H 16 78/64 L 97 Mechanical Vent 03/24/23 23:37 97 Mechanical Vent 03/24/23 23:20 108 H 24 98 03/24/23 23:16 104 H 23 129/77 97 Mechanical Vent FiO2 03/25/23 00:36 03/25/23 00:01 03/24/23 23:54 03/24/23 23:50 03/24/23 23:37 03/24/23 23:20 100 03/24/23 23:16 Laboratory Results Laboratory Results WBC 10.32 K/ul (4.8-10.8) 03/24/23 23:30 RBC 4.74 M/uL (4.70-6.10) 03/24/23 23:30 Hgb 12.2 g/dl (14.0-18.0) L 03/24/23 23:30 POC Hgb 11.9 g/dl (14.0-18.0) L 03/25/23 00:21 Hct 38.4 % (42.0-52.0) L 03/24/23 23:30 POC Hct 35 % (42-52) L 03/25/23 00:21 MCV 81.0 fL (80.0-100.0) 03/24/23 23:30 MCH 25.7 pg (25.0-34.0) 03/24/23 23: MCHC 31.8 g/dL (32.0-36.0) L 03/24/23: RDW Std Deviation 48.7 fL (36.4-46.3) H 03/24/23: RDW Coeff of Rene 16.9 % (11.5-14.5) H 03/24/23: Plt Count 437 K/uL (130-400) H 03/24/23 23: MPV 9.6 fL (9.4-12.4) 03/24/23 23: Immature Gran % (Auto) 0.6 % 03/24/23 23: Neut % (Auto) 82.5 % 03/24/23 23:30 Lymph % (Auto) 15.9 % 03/24/23 23:30 Bath % (Auto) 0.7 % 03/24/23 23: Eos % (Auto) 0.1 % 03/24/23: Baso % (Auto) 0.2 % 03/24/23 23:30 Neut # (Auto) 8.52 K/uL (1.40-6.50) H 03/24/23 23:30 Lymph # (Auto) 1.64 K/uL (1.20-3.40) 03/24/23 23:30 Bath # (Auto) 0.07 K/uL (0.11-0.59) L 03/24/23 23: Eos # (Auto) 0.01 K/uL (0.00-0.50) 03/24/23 23: Baso # (Auto) 0.02 K/uL (0.00-0.20) 03/24/23 23:30 Immature Gran # (Auto) 0.06 K/uL (0.01-0.20) 03/24/23 23: PT 11.7 Seconds (9.0-12.0) 03/24/23 23:30 INR 1.1 (0.9-1.1) 03/24/23 23:30 POC pH 7.17 (7.35-7.45) L* 03/25/23 00:21 POC pCO2 48 mmHg (35-46) H 03/25/23 00:21 POC pO2 48 mmHg (80-95) L 03/25/23 00:21 POC HCO3 18 janette/L (19-24) L 03/25/23 00: POC Total CO2 19 mmol/L (24-31) L 03/25/23 00:21 POC Base Excess -11.0 janette/L (-9-1.8) L 03/25/23 00: POC ABG O2 Sat 73.0 % (90-95) L 03/25/23 00: POC Sodium 141 mmol/L (135-144) 03/25/23 00: Sodium 140 mmol/L (136-145) 03/24/23 23:30 POC Potassium 4.5 mmol/L (3.3-5.0) 03/25/23 00:21 Potassium 3.6 mmol/L (3.5-5.1) 03/24/23 23:30 POC Chloride 108 mmol/L (101-112) 03/24/23 23: Chloride 108 mmol/L (98-107) H 03/24/23 23:30 Carbon Dioxide 19 mmol/L (21-32) L 03/24/23 23:30 POC Total CO2 21 mmol/L (24-31) L 03/24/23 23:28 Anion Gap 13 (3-11) H 03/24/23 23:30 POC Anion Gap 17.0 mmol/L (16-25) 03/24/23 23:28 POC BUN 15 mg/dl (7-18) 03/24/23 23: BUN 15 mg/dl (6-23) 03/24/23 23:30 Creatinine 1.20 mg/dl (0.6-1.4) 03/24/23 23:30 POC Creatinine 1.3 mg/dl (0.6-1.3) 03/24/23 23:28 Est Cr Clr Drug Dosing 137.1 ml/min 03/24/23 23:30 Est GFR ( Amer) 96.8 ml/min 03/24/23 23: Est GFR (Non-Af Amer) 83.5 ml/min 03/24/23: BUN/Creatinine Ratio 12.5 (10-20) 03/24/23 23: Glucose 215 mg/dl (70-99(Fasting)) H 03/24/23 23: POC Glucose (other) 217 mg/dl (70-99) H 03/24/23 23: Lactate 5.3 mmol/L (0.4-2.0) H* 03/24/23: Calcium 7.7 mg/dl (8.6-10.3) L 03/24/23: POC Ioniz Calcium Akbar 1.05 mmol/l (1.12-1.32) L 03/24/23: Magnesium 2.1 mg/dl (1.7-2.4) 03/24/23: Total Bilirubin 0.4 mg/dl (0.2-1.0) 03/24/23: AST 54 U/L (13-39) H 03/24/23: ALT 63 U/L (7-52) H 03/24/23: Alkaline Phosphatase 68 U/L (34-104) 03/24/23: Total Creatine Kinase 102 U/L (30-223) 03/24/23: Troponin I High Sens 19.7 pg/ml (0-20) 03/24/23: Total Protein 7.2 gm/dl (6.0-8.3) 03/24/23: Albumin 3.8 gm/dl (3.4-5.0) 03/24/23: Globulin 3.4 gm/dl (2.5-4.0) 03/24/23 Albumin/Globulin Ratio 1.1 (0.9-2) 03/24/23: Lipase 38 U/L (11-82) 03/24/23 23: Urine Color Yellow 03/24/23 Urine Appearance Clear (Clear) 03/24/23: Urine pH 5.5 (4.5-7.5) 03/24/23: Ur Specific [place] 1.021 (1.000-1.030) 03/24/23 23:30 Urine Protein 1+ (Negative) H 03/24/23 23:30 Urine Glucose (UA) Trace (Negative) H 03/24/23 23:30 Urine Ketones Trace (Negative) H 03/24/23 23:30 Urine Blood Negative (Negative) 03/24/23 23:30 Urine Nitrite Negative (Negative) 03/24/23 23:30 Urine Bilirubin Negative (Negative) 03/24/23 23:30 Urine Urobilinogen Negative (Negative) 03/24/23 23:30 Ur Leukocyte Esterase Negative (Negative) 03/24/23 23:30 Urine WBC (Auto) 1-5 /hpf (0-5) 03/24/23 23:30 Urine RBC (Auto) 0-4 /hpf (0-4) 03/24/23 23:30 U Hyaline Cast (Auto) 10-30 /lpf (0-5) H 03/24/23 23:30 U Epithel Cells (Auto) 10-20 /lpf (0-5) H 03/24/23 23:30 Urine Bacteria (Auto) Negative (Negative) 03/24/23 23:30 Salicylates 8.9 mg/dl (3.0-30) 03/24/23 23:30 Urine Opiates Screen Neg (Neg) 03/24/23 23:30 Ur Methadone, Qual Neg (Neg) 03/24/23 23:30 Acetaminophen 19 ug/ml (10-30) 03/24/23 23:30 Urine Barbiturates Neg (Neg) 03/24/23 23:30 Ur Phencyclidine (PCP) Neg (Neg) 03/24/23 23:30 U Amphetamin/Meth Scrn Neg (Neg) 03/24/23 23:30 MDMA (Ecstasy) Screen Neg (Neg) 03/24/23 23:30 U Benzodiazepines Scrn Neg (Neg) 03/24/23 23:30 Ur Cocaine Metabolite Neg (Neg) 03/24/23 23:30 U Marijuana (THC) Screen Neg (Neg) 03/24/23 23:30 Ethyl Alcohol mg/dL 175.0 mg/dl (<10.0) H 03/24/23 23:30 SARS-CoV-2, RNA, NAAT NEGATIVE (NEGATIVE) 03/24/23 Unknown Impressions Cervical Spine CT 03/24/23 23:11 Exam(s): CT C SPINE EXAM: CT Cervical Spine Without Intravenous Contrast CLINICAL HISTORY: Reason for exam: ams, od. TECHNIQUE: Axial computed tomography images of the cervical spine without intravenous contrast. CTDI is 28.14 mGy and DLP is 866.59 mGy-cm. Automated exposure control was utilized for the study. A dose lowering technique was utilized adhering to the principles of ALARA. COMPARISON: No relevant prior studies available. FINDINGS: Vertebrae: Unremarkable. No acute fracture. Discs/spinal canal/neural foramina: No acute findings. No spinal canal stenosis. Soft tissues: Unremarkable. IMPRESSION: Normal cervical spine CT. Electronically signed by: Chris Wagoner MD 03/25/23 00:[address] 03/24/23 23:11 Exam(s): CT CHEST With Contrast IV Amt: 111 ML OPTIRAY 320 EXAM: CT Chest With Intravenous Contrast CLINICAL HISTORY: Reason for exam: od, CPR in field. TECHNIQUE: Axial computed tomography images of the chest with intravenous contrast. CTDI is 28.14 mGy and DLP is 866.59 mGy-cm. Automated exposure control was utilized for the study. A dose lowering technique was utilized adhering to the principles of ALARA. CONTRAST: Patient received 111 ML OPTIRAY 320 of IV contrast COMPARISON: No relevant prior studies available. FINDINGS: Lungs: Consolidations in the posterior aspect of both upper lobes and lower lobes. Pleural space: Unremarkable. No pneumothorax. No significant effusion. Heart: Unremarkable. No cardiomegaly. No significant pericardial effusion. Bones/joints: Unremarkable. No acute fracture. No dislocation. Soft tissues: Unremarkable. Vasculature: Unremarkable. No thoracic aortic aneurysm. Lymph nodes: Unremarkable. No enlarged lymph nodes. Tubes, lines and devices: The tip of the endotracheal tube is at the origin of the right main bronchus. IMPRESSION: Consolidations in the posterior aspects of both upper lobes and both lower lobes. Much of this may represent atelectasis; however, it may also represent infiltration. Aspiration pneumonia is possible in the setting of an OD. The tip of the endotracheal tube is near the origin of the right main bronchus and can be pulled back at least 3-4 cm. Electronically signed by: Chris Wagoner MD 03/25/23 00:[address] 03/24/23 23:13 Exam(s): CT HEAD Without Contrast EXAM: CT Head Without Intravenous Contrast CLINICAL HISTORY: Reason for exam: do, ams. TECHNIQUE: Axial computed tomography images of the head/brain without intravenous contrast. CTDI is 49.72 mGy and DLP is 983.45 mGy-cm. Automated exposure control was utilized for the study. A dose lowering technique was utilized adhering to the principles of ALARA. COMPARISON: No relevant prior studies available. FINDINGS: Brain: Unremarkable. No acute intracranial hemorrhage, edema or abnormal mass-effect. Ventricles: Unremarkable. No ventriculomegaly. Bones/joints: Unremarkable. No acute fracture. Soft tissues: Unremarkable. Sinuses: Unremarkable as visualized. No acute sinusitis. Mastoid air cells: Unremarkable as visualized. No mastoid effusion. IMPRESSION: Normal head/brain CT. Electronically signed by: Chris Wagoner MD 03/25/23 00:11 AM Diagnostic Findings EKG as per my interpretation :Rate 120, sinus tachycardia, normal axis, T wave abnormalities septal leads
[2023-03-25] MEDS ORDERED: PANTOprazole 80 MG in DEXTROSE 5% 100 ML IV STA (00:41)
--- NOTE | 2023-03-25 00:45 | Critical Care Consultation ---
Date of Consultation March 25, 2023 Assessment & Plan (1) Overdose by ingestion: (2) Alcohol intoxication: (3) Respiratory failure: (4) Rheumatoid arthritis: (5) Schizoaffective disorder: Plan Reason Critically Ill: 27 YOM admitted to ICU post intentional overdose via in gestion, now intubated and mechanically ventilated. Ingestion of Ativan and ETOH Neuro - Suicide attempt by ingestion, Sedation for mechanical ventilation, schizoaffective disorder, major depressive eppisode, CAM ICU: [facility]IE - Sedation goal BAHMAN -1- Precedex with prn Fentanyl - Tox screen negative for other agents including ASA/Aceta - Patient is on 302- when awake and extubated, not permitted for AMA - Hold further sedating medications - Psych consultation when appropriate - Suicide watch and 1:1 when awakened and extubated - SBT and Sedation holiday when appropriate Cardiac - Shock - Hypotension with elevated lactate, unspecified - Likely secondary to ingestion and persistent vomiting - currently no vasoactive needs - IVF with isotonic HCO3 - Trend lactate Respiratory - Aspiration pneumonia, Hypoxic respiratory failure - Respiratory failure secondary to persistent vomiting with aspiration into airways- may need bronchoscopy - ARDSnet ventilation strategy low PEEP high FIO2 - Wean as tolerated GI - Aspiration - likely secondary to ETOH and ingestion - vomiting x2 with OGT tube in - OGT repositioned with effective suction - Oral and hypopharynx suctioned for large amount of pinkish emesis, with chunks of food and pill fragments as well as whole pills - No lisette blood, concern for UGI bleed by admitting team- continue Protonix infusion as already hanging - GI Consultation by primary team - BUN normal and HGB level stable - Type and Cross performed - Last EGD in October 2022 with esophagitis RENAL/LYTES - Metabolic Acidosis, electrolyte disturbances - HCO3 administered for PH 7.1- continue with isotonic bicarb infusion in light of benzodiazepine overdose - Replace electrolytes as needed - No acute needs - Linares to gravity while intubated ENDO - NO acute needs - ICU hyperglycemic protocol HEME - No acute needs - Trend HGB/HCT ID - Aspiration pneumonia - Zosyn for coverage - Consider bronchoscopy for irrigation of airways LINES/IV ACCESS - PIV x3, Linares, ETT, OGT Continue use of these lines DVT PROPHYLAXIS - SCDS, chemo prophy- initiate when bleeding is ruled out DISPO: ICU while intubated and sedated I have personally spent 55 minutes of critical care time in the direct management of this patient. This is a life/limb threatening event. This includes time spent evaluating patient, direct bedside care, chart review, placing orders, interpretation of diagnostic studies, discussion with consultants, patient, and family members, as well as other required patient management activities. This time is exclusive of all separately billable procedures, and separate from and in addition to any other critical care service time. Thank you for allowing us to participate in the care of this patient. Please refer to my attending physician's documentation for any further recommendations. History of Present Illness Reason for Consultation: Intubation and mechanical ventilation in setting of intentional overdose/suicide attempt Requesting Physician: Manuel Paul MD Attending Physician: Manuel Pual MD History of Present Illness 27 YOM reportedly undergoing gender transition, with medical history of, GERD with erosive esophagitis with EGD 11/13, ANUEL with intolerance to CPAP, Obesity, RA (on Humira), schizoaffective disorder, MDD with previous admission to psychiatry in Jun 2022. Was brought into the EMD today via EMS secondary to patient being found by his roommates unresponsive, with reports of ingestion of 15mg of Ativan and Rum. There is an accompanied email note that voices suicide attempt. There was concern at the scene of the patient having sonorous respirations and CPR was performed until EMS arrived, patient was intubated by EMS and received 2mg of IV versed. In the EMD the patient had CXR to confirm ETT placement and was withdrawn 2cm, head and cervical spine CT scan. He had routine labs performed to include ETOh level and Toxicology screen for usual agents. His ETOH level is elevated. He is with elevated lactate, low HCo3 and acidotic. Request was made for 1amp of HCO3. CT of chest is with bilateral opacifications upper and lower lobes without collapse, head and cervical spine scans are interpreted as negative for bleed or cervical fracture. He is with reddish drainage from his OGT that is not lisette blood or with clots, he was initiated on Protonix infusion by admitting team. Will admit to the ICU, start abx for aspiration, continue with volume resuscitation, correct acidosis, follow QT/QTC. He has received 2L crystalloid, will provide 1 more liter for dilutional effects as well as initiate isotonic HCO3 infusion. CODE status: FULL Allergies Allergy/AdvReac Type Severity Reaction Status Date / Time azithromycin [From Zithromax] Allergy Intermediate Rash Verified 03/24/23 23:31 Home Medications Medication Instructions Recorded Confirmed Type adalimumab 40 mg/0.4 mL 40 mg subcut DIRECTED 03/11/23 03/24/23 History subcutaneous pen kit (Humira(CF) Pen) finasteride 5 mg tablet 5 mg PO DAILY 03/11/23 03/24/23 History gabapentin 100 mg capsule 200 mg PO BID 03/11/23 03/24/23 History lamotrigine 25 mg tablet (Lamictal) 50 mg PO QPM 03/11/23 03/24/23 History lumateperone 42 mg capsule 42 mg PO QPM 03/11/23 03/24/23 History (Caplyta) spironolactone 50 mg tablet 50 mg PO BID 03/11/23 03/24/23 History estradiol 2 mg tablet 2 mg PO BID 03/24/23 03/24/23 History lorazepam 0.5 mg tablet 0.5 mg PO Q8 PRN Anxiety 03/24/23 03/24/23 History modafinil 100 mg tablet 100 mg PO DAILY 03/24/23 03/24/23 History omeprazole 40 mg capsule,delayed 40 mg PO QAM 03/24/23 03/24/23 History release trazodone 50 mg tablet 50 mg PO BID 03/24/23 03/24/23 History Patient History Medical History Encounter for pre-operative examination Vermiculation Schizoaffective disorder, bipolar type Suicidal ideations Rheumatoid arthritis Surgical History No significant past surgical history Family History Other Back pain Social History Smoking Status: Never smoker Second Hand Exposure: No; Do You Dip or Chew Tobacco: No; Preferred Language: Omani Communication Ability: Impaired Communication Ability Comment: unable to assess currently intubated Hybrid Tester Required: No Beliefs That Will Affect Care: None marital status: Single Current Living Situation: Alone Current Living Situation Comment: college student current occupational status: student Other Information That Helps Us Care for You: No Feels Safe at Home: Yes Safety Concerns: Feels Safe At This Time Gender Identity: Nonbinary Assistive Devices: None Review of Systems Review of Systems: unable to perform secondary to intubated with mechanical ventilation Physical Exam Physical Exam: PHYSICAL EXAM: General: sedate, intubated with mechanical ventilation Head: Normocephalic, atraumatic Neuro: AAO x 0, speech none secondary to intubation, withdraws to painful stimuli, pupils sluggish 2 Chest: equal rise and fall of the chest, no accessory muscle use, scattered rhonchi bilaterally with end expiratory wheeze Cardiac: Regular rate and rhythm, telemetry reviewed, skin warm dry, cap refill <3 seconds, peripheral pulses +2 no JVD, no murmur, GI: NABS x 4 quadrants, soft, OGT with pinkish drainage, no lisette blood, tube irrigated with no return of clots or lisette blood, pill fragments and food suctioned from hypopharynx : Linares catheter draining dilute yellow urine Skin: no rash or erythema Results & Data Results & Data Vital Signs (Past 12 Hours) Vital Signs Pulse Pulse Resp BP BP Pulse Ox O2 Del Method 03/25/23 00:37 77/60 L 03/25/23 00:36 96 H 21 88/54 L 95 Mechanical Vent 03/25/23 00:01 93 H 22 95/59 L 95 Mechanical Vent 03/24/23 23:54 99 H 23 87/51 L 93 Mechanical Vent 03/24/23 23:50 94 H 16 78/64 L 97 Mechanical Vent 03/24/23 23:37 97 Mechanical Vent 03/24/23 23:20 108 H 24 98 03/24/23 23:16 104 H 23 129/77 97 Mechanical Vent FiO2 03/25/23 00:37 03/25/23 00:36 03/25/23 00:01 03/24/23 23:54 03/24/23 23:50 03/24/23 23:37 03/24/23 23:20 100 03/24/23 23:16 Laboratory Results Abnormal lab results 03/24/23 03/24/23 03/25/23 Range/Units 23:28 23:30 00:21 WBC (4.8-10.8) K/ul RBC (4.70-6.10) M/uL Hgb 12.2 L (14.0-18.0) g/dl POC Hgb 12.9 L 11.9 L (14.0-18.0) g/dl Hct 38.4 L (42.0-52.0) % POC Hct 38 L 35 L (42-52) % MCHC 31.8 L (32.0-36.0) g/dL RDW Std Deviation 48.7 H (36.4-46.3) fL RDW Coeff of Rene 16.9 H (11.5-14.5) % Plt Count 437 H (130-400) K/uL Neut # (Auto) 8.52 H (1.40-6.50) K/uL Grainger # (Auto) 0.07 L (0.11-0.59) K/uL POC pH 7.17 L* (7.35-7.45) POC pCO2 48 H (35-46) mmHg POC pO2 48 L (80-95) mmHg POC HCO3 18 L (19-24) janette/L POC Base Excess -11.0 L (-9-1.8) janette/L POC ABG O2 Sat 73.0 L (90-95) % VBG pH (7.36-7.41) Chloride 108 H (98-107) mmol/L Carbon Dioxide 19 L (21-32) mmol/L POC Total CO2 21 L 19 L (24-31) mmol/L Anion Gap 13 H (3-11) Glucose 215 H (70-99(Fasting)) mg/dl POC Glucose (other) 217 H (70-99) mg/dl Lactate 5.3 H* (0.4-2.0) mmol/L Calcium 7.7 L (8.6-10.3) mg/dl POC Ioniz Calcium Akbar 1.05 L (1.12-1.32) mmol/l AST 54 H (13-39) U/L ALT 63 H (7-52) U/L Urine Protein 1+ H (Negative) Urine Glucose (UA) Trace H (Negative) Urine Ketones Trace H (Negative) U Hyaline Cast (Auto) 10-30 H (0-5) /lpf U Epithel Cells (Auto) 10-20 H (0-5) /lpf Ethyl Alcohol mg/dL 175.0 H (<10.0) mg/dl 03/25/23 Range/Units 02:27 WBC 12.82 H (4.8-10.8) K/ul RBC 4.51 L (4.70-6.10) M/uL Hgb 11.5 L (14.0-18.0) g/dl POC Hgb (14.0-18.0) g/dl Hct 36.2 L (42.0-52.0) % POC Hct (42-52) % MCHC 31.8 L (32.0-36.0) g/dL RDW Std Deviation 48.1 H (36.4-46.3) fL RDW Coeff of Rene 16.7 H (11.5-14.5) % Plt Count (130-400) K/uL Neut # (Auto) (1.40-6.50) K/uL Grainger # (Auto) (0.11-0.59) K/uL POC pH (7.35-7.45) POC pCO2 (35-46) mmHg POC pO2 (80-95) mmHg POC HCO3 (19-24) janette/L POC Base Excess (-9-1.8) janette/L POC ABG O2 Sat (90-95) % VBG pH 7.29 L (7.36-7.41) Chloride (98-107) mmol/L Carbon Dioxide (21-32) mmol/L POC Total CO2 (24-31) mmol/L Anion Gap (3-11) Glucose (70-99(Fasting)) mg/dl POC Glucose (other) (70-99) mg/dl Lactate 3.7 H* (0.4-2.0) mmol/L Calcium (8.6-10.3) mg/dl POC Ioniz Calcium Akbar (1.12-1.32) mmol/l AST (13-39) U/L ALT (7-52) U/L Urine Protein (Negative) Urine Glucose (UA) (Negative) Urine Ketones (Negative) U Hyaline Cast (Auto) (0-5) /lpf U Epithel Cells (Auto) (0-5) /lpf Ethyl Alcohol mg/dL (<10.0) mg/dl Diagnostic Findings Cervical Spine CT 03/24/23 23:11 Exam(s): CT C SPINE EXAM: CT Cervical Spine Without Intravenous Contrast CLINICAL HISTORY: Reason for exam: ams, od. TECHNIQUE: Axial computed tomography images of the cervical spine without intravenous contrast. CTDI is 28.14 mGy and DLP is 866.59 mGy-cm. Automated exposure control was utilized for the study. A dose lowering technique was utilized adhering to the principles of ALARA. COMPARISON: No relevant prior studies available. FINDINGS: Vertebrae: Unremarkable. No acute fracture. Discs/spinal canal/neural foramina: No acute findings. No spinal canal stenosis. Soft tissues: Unremarkable. IMPRESSION: Normal cervical spine CT. Electronically signed by: Chris Wagoner MD 03/25/23 00:[address] 03/24/23 23:11 Exam(s): CT CHEST With Contrast IV Amt: 111 ML OPTIRAY 320 EXAM: CT Chest With Intravenous Contrast CLINICAL HISTORY: Reason for exam: od, CPR in field. TECHNIQUE: Axial computed tomography images of the chest with intravenous contrast. CTDI is 28.14 mGy and DLP is 866.59 mGy-cm. Automated exposure control was utilized for the study. A dose lowering technique was utilized adhering to the principles of ALARA. CONTRAST: Patient received 111 ML OPTIRAY 320 of IV contrast COMPARISON: No relevant prior studies available. FINDINGS: Lungs: Consolidations in the posterior aspect of both upper lobes and lower lobes. Pleural space: Unremarkable. No pneumothorax. No significant effusion. Heart: Unremarkable. No cardiomegaly. No significant pericardial effusion. Bones/joints: Unremarkable. No acute fracture. No dislocation. Soft tissues: Unremarkable. Vasculature: Unremarkable. No thoracic aortic aneurysm. Lymph nodes: Unremarkable. No enlarged lymph nodes. Tubes, lines and devices: The tip of the endotracheal tube is at the origin of the right main bronchus. IMPRESSION: Consolidations in the posterior aspects of both upper lobes and both lower lobes. Much of this may represent atelectasis; however, it may also represent infiltration. Aspiration pneumonia is possible in the setting of an OD. The tip of the endotracheal tube is near the origin of the right main bronchus and can be pulled back at least 3-4 cm. Electronically signed by: Chris Wagoner MD 03/25/23 00:[address] 03/24/23 23:13 Exam(s): CT HEAD Without Contrast EXAM: CT Head Without Intravenous Contrast CLINICAL HISTORY: Reason for exam: do, ams. TECHNIQUE: Axial computed tomography images of the head/brain without intravenous contrast. CTDI is 49.72 mGy and DLP is 983.45 mGy-cm. Automated exposure control was utilized for the study. A dose lowering technique was utilized adhering to the principles of ALARA. COMPARISON: No relevant prior studies available. FINDINGS: Brain: Unremarkable. No acute intracranial hemorrhage, edema or abnormal mass-effect. Ventricles: Unremarkable. No ventriculomegaly. Bones/joints: Unremarkable. No acute fracture. Soft tissues: Unremarkable. Sinuses: Unremarkable as visualized. No acute sinusitis. Mastoid air cells: Unremarkable as visualized. No mastoid effusion. IMPRESSION: Normal head/brain CT. Electronically signed by: Chris Wagoner MD 03/25/23 00:11 AM Medications Administered Fentanyl Citrate (Fentanyl Citrate Pf 100 Mcg/2 Ml Vial) 50 mcg IV Q2H PRN PRN Reason: Moderate Pain (4,5,6) on NRS Stop: 04/08/23 01:09 Last Admin: 03/25/23 01:46 Dose: 50 mcg Documented By: DAINA Pantoprazole Sodium 40 mg/ (Dextrose) 100 mls @ 20 mls/hr IV Q5H KIKA Stop: 04/24/23 00:59 Last Admin: 03/25/23 01:42 Dose: 8 mg/hr, 20 mls/hr Documented By: DAINA Dexmedetomidine/Sodium Chloride (Precedex) 200 mcg in 50 mls @ 15.14 mls/hr IV .Q3H19M KIKA; Protocol Stop: 03/29/23 01:09 Last Admin: 03/25/23 01:20 Dose: 0.4 mcg/kg/hr, 15.1 mls/hr Documented By: DAINA Co-signed By: ORVILLE Sodium Bicarbonate 150 meq/ (Dextrose) 1,150 mls @ 125 mls/hr IV .Q9H12M KIKA Stop: 04/24/23 01:09 Last Admin: 03/25/23 01:42 Dose: 125 mls/hr Documented By: DAINA Discontinued Medications Sodium Chloride (Nss) 1,000 mls @ 999 mls/hr IV .Q1H1M KIKA Stop: 03/25/23 00:15 Last Infusion: 03/25/23 00:22 Dose: Infused Documented By: Admin: 03/24/23 23:30 Dose: 999 mls/hr Documented By: KEI Thiamine HCl 100 mg/ Syringe 10 mls @ 2 mls/min IV NOW STA Stop: 03/25/23 00:18 Last Admin: 03/25/23 00:23 Dose: 2 mls/min Documented By: KEI Lactated Ringer's (Lr) 1,000 mls @ 999 mls/hr IV .Q1H1M ONE Stop: 03/25/23 01:14 Last Infusion: 03/25/23 04:47 Dose: Infused Documented By: Admin: 03/25/23 00:21 Dose: 999 mls/hr Documented By: KEI Pantoprazole Sodium 80 mg/ (Dextrose) 120 mls @ 480 mls/hr IV ONE STA Stop: 03/25/23 00:55 Last Infusion: 03/25/23 04:46 Dose: Infused Documented By: Admin: 03/25/23 01:20 Dose: 480 mls/hr Documented By: DAINA Lactated Ringer's (Lr) 1,000 mls @ 999 mls/hr IV .Q1H1M ONE Stop: 03/25/23 02:30 Last Infusion: 03/25/23 04:46 Dose: Infused Documented By: Admin: 03/25/23 01:21 Dose: 999 mls/hr Documented By: DAINA Ioversol (Optiray 320 500ml) 125 ml IV ONCE ONE Stop: 03/24/23 23:56 Last Admin: 03/24/23 23:55 Dose: 111 ml Documented By: CT Miscellaneous (Rapid Sequence Induction Bag) Confirm Administered Dose 1 each N/A .STK-MED ONE Stop: 03/24/23 22:57 Last Admin: 03/25/23 00:23 Dose: Not Given Documented By: KEI Sodium Bicarbonate (Sodium Bicarb 8.4% Inj 50 Meq/50 Ml Syr) 50 meq IV NOW STA Stop: 03/25/23 00:28 Last Admin: 03/25/23 00:32 Dose: 50 meq Documented By: KEI ECG Additional Comments: Normal sinus rhythm Normal ECG When compared with ECG of 24-MAR-2023 23:14, (unconfirmed) No significant change was found Vent. rate 90 BPM ND interval 196 ms QRS duration 88 ms QT/QTc 374/457 ms P-R-T axes 51 46 49 Coding Level of Care Code 30629 CRITICAL CARE 1ST 30-74M Diagnoses Overdose by ingestion T50.901A Alcohol intoxication F10.921 Complication of substance-induced condition: with delirium Respiratory failure J96.02 Chronicity: acute Respiratory failure complication: hypercapnia Rheumatoid arthritis M06.9 Schizoaffective disorder F25.0 Schizoaffective disorder type: bipolar (2) Alcohol intoxication Complication of substance-induced condition: with delirium Qualified Code(s): F10.921 - Alcohol use, unspecified with intoxication delirium (3) Respiratory failure Chronicity: acute Respiratory failure complication: hypercapnia Qualified Code(s): J96.02 - Acute respiratory failure with hypercapnia (5) Schizoaffective disorder Schizoaffective disorder type: bipolar Qualified Code(s): F25.0 - Schizoaffective disorder, bipolar type
[2023-03-25] MEDS ORDERED: SODIUM BICARBONATE 8.4% 150 MEQ in DEXTROSE 5% 1,000 ML IV SCH (01:10)
[2023-03-25] MEDS ORDERED: STAT IV/IM STA ×3 (01:10→09:12)
[2023-03-25] MEDS ORDERED: STAT IV Infusion **Titration per Protocol STA ×3 (01:10→09:12)
[2023-03-25] MEDS: dexMEDEtomidine 200 MCG/50 ML BAG IV SCH ×6 (01:20→10:08)
[2023-03-25] MEDS: PANTOprazole 40 MG in DEXTROSE 5% MINI-B 100 ML IV SCH ×3 (01:42→10:28)
[2023-03-25] MEDS: fentaNYL citrate PF 100 MCG/2 ML VIAL IV PRN ×2 (01:46→02:45)
[2023-03-25] MEDS ORDERED: PIPERACILLIN/TAZOBACTAM 4.5 GM in DEXTROSE 5% MINI-B 100 ML IV STA (01:51)
[2023-03-25 04:39] LABS: HCO3 VBG 19 mmol/L; Oxygen Saturation VBG 89.6 %; PCO2 VBG 40 mmHg (38-50); PO2 VBG 59 mmHg; pH VBG 7.29 (7.36-7.41)
[2023-03-25 04:48] LABS: Creatinine Clr Calc Pharmacy 182.8 ml/min; Hematocrit (blood only) 36.2 % (42.0-52.0); Hemoglobin 11.5 g/dl (14.0-18.0); Mean Corpuscular Hemoglobin 25.5 pg (25.0-34.0); Mean Corpuscular Hgb Conc 31.8 g/dL (32.0-36.0); Mean Corpuscular Volume 80.3 fL (80.0-100.0); Mean Platelet Volume 9.9 fL (9.4-12.4); Platelet Count 368 K/uL (130-400); Potassium 4.5 mmol/L (3.5-5.1); RDW Coefficient of Variation 16.7 % (11.5-14.5); RDW Standard Deviation 48.1 fL (36.4-46.3); Red Blood Count 4.51 M/uL (4.70-6.10); White Blood Count 12.82 K/ul (4.8-10.8)
[2023-03-25 04:51] LABS: Basophils # (auto) 0.01 K/uL (0.00-0.20); Basophils % (auto) 0.1 %; Immature Granulocytes # (auto) 0.05 K/uL (0.01-0.20); Immature Granulocytes % (auto) 0.4 %; Lymphocytes # (auto) 0.77 K/uL (1.20-3.40); Monocytes # (auto) 0.25 K/uL (0.11-0.59); Neutrophils # (auto) 11.74 K/uL (1.40-6.50); Neutrophils % (auto) 91.5 %
[2023-03-25 04:55] LABS: Albumin Level 3.5 gm/dl (3.4-5.0); Bilirubin Direct 0.1 mg/dl (0-0.2); Bilirubin,Total 0.3 mg/dl (0.2-1.0); Calcium 7.6 mg/dl (8.6-10.3)
[2023-03-25 05:01] LABS: BUN Creatinine Ratio 14.3 (10-20); Est GFR (African American) 135.3 ml/min; Est GFR (Non-African American) 116.7 ml/min; Total Protein 6.7 gm/dl (6.0-8.3)
[2023-03-25 05:28] LABS: Magnesium 1.7 mg/dl (1.7-2.4); Phosphorus 1.8 mg/dl (2.5-4.9)
[2023-03-25] MEDS ORDERED: POTASSIUM PHOS 3 MMOL/1 ML INFUSION IV STA (05:38)
[2023-03-25] MEDS: MAGNESIUM SULFATE / D5W 1 GM/100 ML BAG IV SCH ×2 (05:45→07:57)
[2023-03-25] MEDS ORDERED: POTASSIUM PHOSPHATE 12 MMOL in SODIUM CHLORIDE 0.9% 250 ML IV ONE (06:00)
[2023-03-25] MEDS: CALCIUM GLUCONATE 10% 1,000 MG in SODIUM CHLOR 0.9% MINI-B 50 ML IV SCH ×2 (06:10→06:29)
--- NOTE | 2023-03-25 07:15 | XRay Report ---
SINGLE VIEW CHEST CLINICAL HISTORY: Respiratory failure. Intubation. FINDINGS: An AP, portable, supine chest radiograph is compared to study dated 11/16/2022. The examinat ion is degraded by portable technique and apical lordotic positioning. An endotracheal tube has been placed. The tip projects 0.8 cm above the za. The heart is enlarged. There is mild pulmonary vas cular congestion. Bilateral airspace opacities are noted. No large pleural effusion or pneumothorax i s seen. The bony thorax is grossly intact. IMPRESSION: 1. An endotracheal tube has been placed as above. A subsequent film shows that this has been repositi oned. 2. Cardiomegaly with mild pulmonary vascular congestion. 3. Bibasilar opacities likely represent atelectasis. Correlate clinically for evidence of a superimpo sed pneumonia. Radiographic follow-up to resolution is recommended ACT 112: Negative or not required by law. Electronically signed by: Sky Larry M.D. 03/25/2023 7:14 AM
--- NOTE | 2023-03-25 07:37 | XRay Report ---
XR chest 1V portable HISTORY: evaluate for lobar collapse aspiration COMPARISON: Chest 03/24/2023. FINDINGS: The endotracheal tube terminates 5 cm and the za. A nasogastric tube terminates in the stomach. The heart is enlarged. There are low lung volumes. No pneumothorax. Left greater than right bilateral airspace opacities are again noted. This has progressed on the left. IMPRESSION: 1. Bilateral airspace opacities most pronounced on the left. This has progressed in the interval. 2. Cardiomegaly again noted. 3. Endotracheal tube terminates 5 cm from the za. ACT 112: Negative or not required by law. Electronically signed by: Abhishek Ohara M.D. 03/25/2023 7:36 AM
--- NOTE | 2023-03-25 07:38 | XRay Report ---
KUB HISTORY: eval OGT placement COMPARISON: None. FINDINGS: The bowel gas pattern is unremarkable. There are no dilated loops of small bowel to suggest an obstruction. No renal calculi. No ureteral calculi. No pneumoperitoneum or pneumatosis. Nasogast fawad tube terminates in the stomach. Bilateral airspace opacities are partially visualized on this binu dy. IMPRESSION: A nasogastric tube terminates in the stomach. ACT 112: Negative or not required by law. Electronically signed by: Abhishek Ohara M.D. 03/25/2023 7:37 AM
[2023-03-25] MEDS ORDERED: MIDAZOLAM HCL 1 MG/ML 2ML VIAL ONE ×2 (07:59→08:04)
[2023-03-25] MEDS ORDERED: PIPERACILLIN/TAZOBACTAM 4.5 GM in DEXTROSE 5% MINI-B 100 ML IV SCH (08:00)
[2023-03-25] MEDS ORDERED: fentaNYL citrate PF 100 MCG/2 ML VIAL IV STA (08:03)
[2023-03-25] MEDS ORDERED: VECURONIUM BROMIDE 10 MG VIAL IV STA (08:03)
[2023-03-25] MEDS ORDERED: VECURONIUM BROMIDE 10 MG VIAL IV ONE (08:04)
[2023-03-25] MEDS ORDERED: MIDAZOLAM HCL 1 MG/ML 2ML VIAL IV STA (08:08)
--- NOTE | 2023-03-25 08:49 | Gastrointestinal Consultation ---
Date of Consultation March 25, 2023 Assessment & Plan (1) Bloody emesis: Plan 27 year old with ANUEL, ADD, schizoaffective disorder, RA on humira, UGI bleeding s/p EGD in 11/13 who was admitted through the ED, found down w/ respiratory distress, intubated in the field w/ suspected ETOH overdose, concern for benzodiazepine overdose. Pinkish drainage noted in OGT with report of UGI bleeding by the primary service. He has stable HGB w/o BUN elevation, without lisette blood/coffee ground emesis or report of melena/BRBPR. DDX discussed, 2022 EGD reviewed. DDX include MWT, esophagitis, Alfonso erosion, PUD, gastritis, etc. In light of his ongoing hypoxia without evidence of acute GI bleeding (stable H&H and normal BUN) recommend conservative measures for now. Please trend H&H. Monitor and document GI output. Transfusion if necessary per primary/ICU team. Agree w/ IV PPI bolus and drip. If able, avoid NSAIDs, AC. In the event of active GI bleeding, please contact GI. We will watch peripherally. Thank you for allowing us to participate in the care of this patient. Please call with any acute changes, questions or concerns. Please see addendum below with additional recommendation from my supervising physician. Supervising Physician Co-Signing Physician Notes I personally saw and evaluated the patient on 03/25/2023 with TAYO Quan and agree with her findings and plan of care. Patient critically ill at bedside intubated and sedated. 27 y/o M with history of RA on Humira, history of UGI bleed secondary to esophagitis, and schizophrenia admitted after he was found down due to alcohol and ativan overdose. GI was consulted due to concern for UGI bleeding. Patient has OG tube in place and at bedside there is a small amount of pinkish and gr material in canister. No lisette blood or clots. Hgb stable at 11.5 around his baseline. BUN normal. At this time patient has ongoing hypoxia and no evidence of active GI bleeding. The small amount of pinkish emesis in the canister is likely due to a alison hargrove tear or esophagitis in the setting of ongoing emesis. Would continue PPI drip at this time and continue to trend H/H and transfuse for hgb <7. If patient develops active lisette bloody emesis or clots would pursue EGD at that time. La Hendrix DO Gastroenterology and Hepatology History of Present Illness Reason for Consultation: upper GI bleeding Requesting Physician: Beverly Attending Physician: Randy Goldberg MD History of Present Illness 27 year old with ANUEL, ADD, schizoaffective disorder, RA on humira, UGI bleeding s/p EGD in 11/13 who was admitted through the ED, found down w/ respiratory distress, intubated in the field w/ suspected ETOH overdose, concern for benzodiazepine overdose. GI was asked to evaluate for UGI bleeding. Pt was seen and evaluated, chart reviewed. Upon arrival to the ICU, ICU team preparing for bronchoscopy given persistent hypoxia. History was obtained via the medical record as no family/friends were at bedside and Jose is sedated and intubated. There was report of bloody emesis and output reported as pinkish/red mixed with undigested food/pills. There has not been report of prior lory temesis/coffee ground emesis or melena or rectal bleeding. WBC 12 HGB 11.5 HCT 36 PLT 368 INR 1.1 BUN 13 STOGY ROLLER 0.9 Lactic acid 5.3 --> 2.8 Tbili 0.3 AST 51 ALT 63 ALKP 58 ETOH level 175 Salicylated level 8.9 Tylenol level 17 The remaining toxicology screen is negative/pending Chest CT 03/24: Consolidations in the posterior aspects of both upper lobes and both lower lobes. Much of this may represent atelectasis; however, it may also represent infiltration. Aspiration pneumonia is possible in the setting of an OD. EGD 2022: - Normal upper third of esophagus and middle third of esophagus. - LA Grade B erosive esophagitis with no active bleeding. - Medium-sized hiatal hernia. - Normal gastric fundus, incisura and antrum. - Normal examined duodenum. - No specimens collected. Allergies Allergy/AdvReac Type Severity Reaction Status Date / Time azithromycin [From Zithromax] Allergy Intermediate Rash Verified 03/24/23 23:31 Home Medications Medication Instructions Recorded Confirmed Type adalimumab 40 mg/0.4 mL 40 mg subcut DIRECTED 03/11/23 03/24/23 History subcutaneous pen kit (Humira(CF) Pen) finasteride 5 mg tablet 5 mg PO DAILY 03/11/23 03/24/23 History gabapentin 100 mg capsule 200 mg PO BID 03/11/23 03/24/23 History lamotrigine 25 mg tablet (Lamictal) 50 mg PO QPM 03/11/23 03/24/23 History lumateperone 42 mg capsule 42 mg PO QPM 03/11/23 03/24/23 History (Caplyta) spironolactone 50 mg tablet 50 mg PO BID 03/11/23 03/24/23 History estradiol 2 mg tablet 2 mg PO BID 03/24/23 03/24/23 History lorazepam 0.5 mg tablet 0.5 mg PO Q8 PRN Anxiety 03/24/23 03/24/23 History modafinil 100 mg tablet 100 mg PO DAILY 03/24/23 03/24/23 History omeprazole 40 mg capsule,delayed 40 mg PO QAM 03/24/23 03/24/23 History release trazodone 50 mg tablet 50 mg PO BID 03/24/23 03/24/23 History Patient History Medical History Encounter for pre-operative examination Vermiculation Schizoaffective disorder, bipolar type Suicidal ideations Rheumatoid arthritis Surgical History No significant past surgical history Family History Other Back pain Social History Smoking Status: Never smoker Second Hand Exposure: No; Do You Dip or Chew Tobacco: No; Preferred Language: Urdu Communication Ability: Impaired Communication Ability Comment: unable to assess currently intubated Loan Originator Required: No Beliefs That Will Affect Care: None marital status: Single Current Living Situation: Alone Current Living Situation Comment: college student current occupational status: student Other Information That Helps Us Care for You: No Feels Safe at Home: Yes Safety Concerns: Feels Safe At This Time Gender Identity: Nonbinary Assistive Devices: None Review of Systems Review of Systems: Unobtainable due to endotracheal tube Physical Exam Constitutional: Sedated, intubated w/ mechanical ventilation in no acute distress Respiratory: Equal chest rise, expiratory wheeze w/ coarse breath sounds. Cardiovascular: RRR, no murmur, no edema Gastrointestinal (Abdomen): normal bowel sounds, soft, nontender, no hepatosplenomegaly There is pinkish emesis noted from OGtube mixed with food debris/pills Skin: no rashes, warm and dry Results & Data Vital Signs (Past 12 Hours) Vital Signs Temp Pulse Pulse Resp BP BP Pulse Ox 03/25/23 06:00 83/56 L 03/25/23 06:00 35.9 C L 79 20 98 03/25/23 05:45 35.7 C L 78 21 98 03/25/23 05:45 89/56 L 98 03/25/23 05:30 91/57 L 98 03/25/23 05:30 35.5 C L 77 20 98 03/25/23 05:16 35.4 C L 76 20 98 03/25/23 05:15 89/56 L 03/25/23 05:14 35.3 C L 75 20 99 03/25/23 05:00 89/61 L 03/25/23 05:00 35.2 C L 74 20 03/25/23 04:45 35.0 C L 74 20 03/25/23 04:45 89/61 L 03/25/23 04:30 88/57 L 03/25/23 04:30 34.8 C L 74 20 03/25/23 04:15 90/57 L 03/25/23 04:15 34.7 C L 74 20 03/25/23 04:00 87 27 H 92 03/25/23 04:00 89/56 L 03/25/23 04:00 34.6 C L 75 20 96 03/25/23 04:00 03/25/23 03:47 34.5 C L 75 20 96 03/25/23 03:45 90/55 L 03/25/23 03:44 34.5 C L 75 20 96 03/25/23 03:30 91/60 L 03/25/23 03:30 34.4 C L 76 20 96 03/25/23 03:15 92/59 L 03/25/23 03:15 34.4 C L 76 20 03/25/23 03:00 101/60 03/25/23 03:00 34.3 C L 78 20 92 03/25/23 02:59 77 20 03/25/23 02:59 100/60 03/25/23 02:45 77 20 03/25/23 02:30 34.2 C L 90 21 94 03/25/23 02:16 34.2 C L 88 22 93 03/25/23 02:15 135/80 03/25/23 02:13 34.2 C L 84 20 92 03/25/23 02:01 34.3 C L 90 21 94 03/25/23 02:01 115/78 03/25/23 02:00 34.3 C L 89 20 92 03/25/23 01:46 89/66 L 03/25/23 01:45 34.4 C L 91 H 20 89 L 03/25/23 01:44 97 H 26 H 91 03/25/23 01:34 34.4 C L 102 H 25 H 87 L 03/25/23 01:34 133/90 03/25/23 01:30 34.4 C L 105 H 24 92 03/25/23 01:27 94 H 24 93 03/25/23 01:27 117/77 03/25/23 01:15 90 20 95 03/25/23 01:10 34.4 C L 105 H 24 133/90 92 03/25/23 01:10 03/25/23 01:10 03/25/23 01:02 96 H 22 92 03/25/23 01:02 100/56 L 03/25/23 00:37 77/60 L 03/25/23 00:36 96 H 21 88/54 L 95 03/25/23 00:01 93 H 22 95/59 L 95 03/24/23 23:54 99 H 23 87/51 L 93 03/24/23 23:50 94 H 16 78/64 L 97 03/24/23 23:37 97 03/24/23 23:25 104 H 03/24/23 23:20 108 H 24 98 03/24/23 23:16 104 H 23 129/77 97 O2 Del Method FiO2 03/25/23 06:00 03/25/23 06:00 03/25/23 05:45 03/25/23 05:45 03/25/23 05:30 03/25/23 05:30 Mechanical Vent 70 03/25/23 05:16 03/25/23 05:15 03/25/23 05:14 03/25/23 05:00 03/25/23 05:00 03/25/23 04:45 03/25/23 04:45 03/25/23 04:30 03/25/23 04:30 03/25/23 04:15 03/25/23 04:15 03/25/23 04:00 70 03/25/23 04:00 03/25/23 04:00 Mechanical Vent 90 03/25/23 04:00 90 03/25/23 03:47 03/25/23 03:45 03/25/23 03:44 03/25/23 03:30 03/25/23 03:30 90 03/25/23 03:15 03/25/23 03:15 03/25/23 03:00 03/25/23 03:00 03/25/23 02:59 03/25/23 02:59 03/25/23 02:45 03/25/23 02:30 100 03/25/23 02:16 03/25/23 02:15 03/25/23 02:13 03/25/23 02:01 03/25/23 02:01 03/25/23 02:00 70 03/25/23 01:46 03/25/23 01:45 Mechanical Vent 100 03/25/23 01:44 70 03/25/23 01:34 03/25/23 01:34 03/25/23 01:30 03/25/23 01:27 03/25/23 01:27 03/25/23 01:15 03/25/23 01:10 Mechanical Vent 70 03/25/23 01:10 Mechanical Vent 03/25/23 01:10 40 03/25/23 01:02 Mechanical Vent 40 03/25/23 01:02 03/25/23 00:37 03/25/23 00:36 Mechanical Vent 03/25/23 00:01 Mechanical Vent 03/24/23 23:54 Mechanical Vent 03/24/23 23:50 Mechanical Vent 03/24/23 23:37 Mechanical Vent 03/24/23 23:25 03/24/23 23:20 100 03/24/23 23:16 Mechanical Vent Laboratory Results 03/25/23 03/25/23 03/25/23 Range/Units Unknown 07:18 05:01 WBC (4.8-10.8) K/ul RBC (4.70-6.10) M/uL Hgb (14.0-18.0) g/dl POC Hgb (14.0-18.0) g/dl Hct (42.0-52.0) % POC Hct (42-52) % MCV (80.0-100.0) fL MCH (25.0-34.0) pg MCHC (32.0-36.0) g/dL RDW Std Deviation (36.4-46.3) fL RDW Coeff of Rene (11.5-14.5) % Plt Count (130-400) K/uL MPV (9.4-12.4) fL Immature Gran % (Auto) % Neut % (Auto) % Lymph % (Auto) % [place] % (Auto) % Eos % (Auto) % Baso % (Auto) % Neut # (Auto) (1.40-6.50) K/uL Lymph # (Auto) (1.20-3.40) K/uL [place] # (Auto) (0.11-0.59) K/uL Eos # (Auto) (0.00-0.50) K/uL Baso # (Auto) (0.00-0.20) K/uL Immature Gran # (Auto) (0.01-0.20) K/uL PT (9.0-12.0) Seconds INR (0.9-1.1) POC pH (7.35-7.45) POC pCO2 (35-46) mmHg POC pO2 (80-95) mmHg POC HCO3 (19-24) janette/L POC Base Excess (-9-1.8) janette/L POC ABG O2 Sat (90-95) % VBG pH (7.36-7.41) VBG pCO2 (38-50) mmHg VBG pO2 mmHg VBG HCO3 mmol/L VBG O2 Saturation % VBG Base Excess mEq/L POC Sodium (135-144) mmol/L Sodium (136-145) mmol/L POC Potassium (3.3-5.0) mmol/L Potassium (3.5-5.1) mmol/L POC Chloride (101-112) mmol/L Chloride (98-107) mmol/L Carbon Dioxide (21-32) mmol/L POC Total CO2 (24-31) mmol/L Anion Gap (3-11) POC Anion Gap (16-25) mmol/L POC BUN (7-18) mg/dl BUN (6-23) mg/dl Creatinine (0.6-1.4) mg/dl POC Creatinine (0.6-1.3) mg/dl Est Cr Clr Drug Dosing ml/min Est GFR ( Amer) ml/min Est GFR (Non-Af Amer) ml/min BUN/Creatinine Ratio (10-20) Glucose (70-99(Fasting)) mg/dl POC Glucose (other) (70-99) mg/dl Lactate 2.8 H* 3.2 H* (0.4-2.0) mmol/L Calcium (8.6-10.3) mg/dl POC Ioniz Calcium Akbar (1.12-1.32) mmol/l Phosphorus 1.8 L (2.5-4.9) mg/dl Magnesium 1.7 (1.7-2.4) mg/dl Total Bilirubin (0.2-1.0) mg/dl Direct Bilirubin (0-0.2) mg/dl AST (13-39) U/L ALT (7-52) U/L Alkaline Phosphatase (34-104) U/L Total Creatine Kinase (30-223) U/L Troponin I High Sens (0-20) pg/ml Total Protein (6.0-8.3) gm/dl Albumin (3.4-5.0) gm/dl Globulin (2.5-4.0) gm/dl Albumin/Globulin Ratio (0.9-2) Lipase (11-82) U/L Urine Color Urine Appearance (Clear) Urine pH (4.5-7.5) Ur Specific [place] (1.000-1.030) Urine Protein (Negative) Urine Glucose (UA) (Negative) Urine Ketones (Negative) Urine Blood (Negative) Urine Nitrite (Negative) Urine Bilirubin (Negative) Urine Urobilinogen (Negative) Ur Leukocyte Esterase (Negative) Urine WBC (Auto) (0-5) /hpf Urine RBC (Auto) (0-4) /hpf U Hyaline Cast (Auto) (0-5) /lpf U Epithel Cells (Auto) (0-5) /lpf Urine Bacteria (Auto) (Negative) Nasal Screen MRSA (PCR) Negative (Negative) Salicylates (3.0-30) mg/dl Urine Opiates Screen (Neg) Ur Methadone, Qual (Neg) Acetaminophen 17 (10-30) ug/ml Urine Barbiturates (Neg) Lamotrigine Ur Phencyclidine (PCP) (Neg) U Amphetamin/Meth Scrn (Neg) MDMA (Ecstasy) Screen (Neg) U Benzodiazepines Scrn (Neg) Ur Cocaine Metabolite (Neg) U Marijuana (THC) Screen (Neg) Ethyl Alcohol mg/dL (<10.0) mg/dl Hepatitis A IgM Ab Pending Hep Bs Antigen Pending Hep Bs Ag Confirmation Pending Hep B Core IgM Ab Pending Hepatitis C Ab (EIA) Pending SARS-CoV-2, RNA, NAAT (NEGATIVE) Blood Type Antibody Screen 03/25/23 03/25/23 03/24/23 Range/Units 02:27 00:21 Unknown WBC 12.82 H (4.8-10.8) K/ul RBC 4.51 L (4.70-6.10) M/uL Hgb 11.5 L (14.0-18.0) g/dl POC Hgb 11.9 L (14.0-18.0) g/dl Hct 36.2 L (42.0-52.0) % POC Hct 35 L (42-52) % MCV 80.3 (80.0-100.0) fL MCH 25.5 (25.0-34.0) pg MCHC 31.8 L (32.0-36.0) g/dL RDW Std Deviation 48.1 H (36.4-46.3) fL RDW Coeff of Rene 16.7 H (11.5-14.5) % Plt Count 368 (130-400) K/uL MPV 9.9 (9.4-12.4) fL Immature Gran % (Auto) 0.4 % Neut % (Auto) 91.5 % Lymph % (Auto) 6.0 % [place] % (Auto) 2.0 % Eos % (Auto) 0.0 % Baso % (Auto) 0.1 % Neut # (Auto) 11.74 H (1.40-6.50) K/uL Lymph # (Auto) 0.77 L (1.20-3.40) K/uL [place] # (Auto) 0.25 (0.11-0.59) K/uL Eos # (Auto) 0.00 (0.00-0.50) K/uL Baso # (Auto) 0.01 (0.00-0.20) K/uL Immature Gran # (Auto) 0.05 (0.01-0.20) K/uL PT (9.0-12.0) Seconds INR (0.9-1.1) POC pH 7.17 L* (7.35-7.45) POC pCO2 48 H (35-46) mmHg POC pO2 48 L (80-95) mmHg POC HCO3 18 L (19-24) janette/L POC Base Excess -11.0 L (-9-1.8) janette/L POC ABG O2 Sat 73.0 L (90-95) % VBG pH 7.29 L (7.36-7.41) VBG pCO2 40 (38-50) mmHg VBG pO2 59 mmHg VBG HCO3 19 mmol/L VBG O2 Saturation 89.6 % VBG Base Excess -7.0 mEq/L POC Sodium 141 (135-144) mmol/L Sodium 139 (136-145) mmol/L POC Potassium 4.5 (3.3-5.0) mmol/L Potassium 4.5 D (3.5-5.1) mmol/L POC Chloride (101-112) mmol/L Chloride 110 H (98-107) mmol/L Carbon Dioxide 18 L (21-32) mmol/L POC Total CO2 19 L (24-31) mmol/L Anion Gap 11 (3-11) POC Anion Gap (16-25) mmol/L POC BUN (7-18) mg/dl BUN 13 (6-23) mg/dl Creatinine 0.91 (0.6-1.4) mg/dl POC Creatinine (0.6-1.3) mg/dl Est Cr Clr Drug Dosing 182.8 ml/min Est GFR ( Amer) 135.3 ml/min Est GFR (Non-Af Amer) 116.7 ml/min BUN/Creatinine Ratio 14.3 (10-20) Glucose 138 H (70-99(Fasting)) mg/dl POC Glucose (other) (70-99) mg/dl Lactate 3.7 H* (0.4-2.0) mmol/L Calcium 7.6 L (8.6-10.3) mg/dl POC Ioniz Calcium Akbar (1.12-1.32) mmol/l Phosphorus (2.5-4.9) mg/dl Magnesium (1.7-2.4) mg/dl Total Bilirubin 0.3 (0.2-1.0) mg/dl Direct Bilirubin 0.1 (0-0.2) mg/dl AST 51 H (13-39) U/L ALT 63 H (7-52) U/L Alkaline Phosphatase 58 (34-104) U/L Total Creatine Kinase (30-223) U/L Troponin I High Sens (0-20) pg/ml Total Protein 6.7 (6.0-8.3) gm/dl Albumin 3.5 (3.4-5.0) gm/dl Globulin (2.5-4.0) gm/dl Albumin/Globulin Ratio (0.9-2) Lipase (11-82) U/L Urine Color Urine Appearance (Clear) Urine pH (4.5-7.5) Ur Specific [place] (1.000-1.030) Urine Protein (Negative) Urine Glucose (UA) (Negative) Urine Ketones (Negative) Urine Blood (Negative) Urine Nitrite (Negative) Urine Bilirubin (Negative) Urine Urobilinogen (Negative) Ur Leukocyte Esterase (Negative) Urine WBC (Auto) (0-5) /hpf Urine RBC (Auto) (0-4) /hpf U Hyaline Cast (Auto) (0-5) /lpf U Epithel Cells (Auto) (0-5) /lpf Urine Bacteria (Auto) (Negative) Nasal Screen MRSA (PCR) (Negative) Salicylates (3.0-30) mg/dl Urine Opiates Screen (Neg) Ur Methadone, Qual (Neg) Acetaminophen (10-30) ug/ml Urine Barbiturates (Neg) Lamotrigine Ur Phencyclidine (PCP) (Neg) U Amphetamin/Meth Scrn (Neg) MDMA (Ecstasy) Screen (Neg) U Benzodiazepines Scrn (Neg) Ur Cocaine Metabolite (Neg) U Marijuana (THC) Screen (Neg) Ethyl Alcohol mg/dL (<10.0) mg/dl Hepatitis A IgM Ab Hep Bs Antigen Hep Bs Ag Confirmation Hep B Core IgM Ab Hepatitis C Ab (EIA) SARS-CoV-2, RNA, NAAT NEGATIVE (NEGATIVE) Blood Type A Positive Antibody Screen NEGATIVE 03/24/23 03/24/23 Range/Units 23:30 23:28 WBC 10.32 (4.8-10.8) K/ul RBC 4.74 (4.70-6.10) M/uL Hgb 12.2 L (14.0-18.0) g/dl POC Hgb 12.9 L (14.0-18.0) g/dl Hct 38.4 L (42.0-52.0) % POC Hct 38 L (42-52) % MCV 81.0 (80.0-100.0) fL MCH 25.7 (25.0-34.0) pg MCHC 31.8 L (32.0-36.0) g/dL RDW Std Deviation 48.7 H (36.4-46.3) fL RDW Coeff of Rene 16.9 H (11.5-14.5) % Plt Count 437 H (130-400) K/uL MPV 9.6 (9.4-12.4) fL Immature Gran % (Auto) 0.6 % Neut % (Auto) 82.5 % Lymph % (Auto) 15.9 % [place] % (Auto) 0.7 % Eos % (Auto) 0.1 % Baso % (Auto) 0.2 % Neut # (Auto) 8.52 H (1.40-6.50) K/uL Lymph # (Auto) 1.64 (1.20-3.40) K/uL [place] # (Auto) 0.07 L (0.11-0.59) K/uL Eos # (Auto) 0.01 (0.00-0.50) K/uL Baso # (Auto) 0.02 (0.00-0.20) K/uL Immature Gran # (Auto) 0.06 (0.01-0.20) K/uL PT 11.7 (9.0-12.0) Seconds INR 1.1 (0.9-1.1) POC pH (7.35-7.45) POC pCO2 (35-46) mmHg POC pO2 (80-95) mmHg POC HCO3 (19-24) janette/L POC Base Excess (-9-1.8) janette/L POC ABG O2 Sat (90-95) % VBG pH (7.36-7.41) VBG pCO2 (38-50) mmHg VBG pO2 mmHg VBG HCO3 mmol/L VBG O2 Saturation % VBG Base Excess mEq/L POC Sodium 142 (135-144) mmol/L Sodium 140 (136-145) mmol/L POC Potassium 3.6 (3.3-5.0) mmol/L Potassium 3.6 (3.5-5.1) mmol/L POC Chloride 108 (101-112) mmol/L Chloride 108 H (98-107) mmol/L Carbon Dioxide 19 L (21-32) mmol/L POC Total CO2 21 L (24-31) mmol/L Anion Gap 13 H (3-11) POC Anion Gap 17.0 (16-25) mmol/L POC BUN 15 (7-18) mg/dl BUN 15 (6-23) mg/dl Creatinine 1.20 (0.6-1.4) mg/dl POC Creatinine 1.3 (0.6-1.3) mg/dl Est Cr Clr Drug Dosing 137.1 ml/min Est GFR ( Amer) 96.8 ml/min Est GFR (Non-Af Amer) 83.5 ml/min BUN/Creatinine Ratio 12.5 (10-20) Glucose 215 H (70-99(Fasting)) mg/dl POC Glucose (other) 217 H (70-99) mg/dl Lactate 5.3 H* (0.4-2.0) mmol/L Calcium 7.7 L (8.6-10.3) mg/dl POC Ioniz Calcium Akbar 1.05 L (1.12-1.32) mmol/l Phosphorus (2.5-4.9) mg/dl Magnesium 2.1 (1.7-2.4) mg/dl Total Bilirubin 0.4 (0.2-1.0) mg/dl Direct Bilirubin (0-0.2) mg/dl AST 54 H (13-39) U/L ALT 63 H (7-52) U/L Alkaline Phosphatase 68 (34-104) U/L Total Creatine Kinase 102 (30-223) U/L Troponin I High Sens 19.7 (0-20) pg/ml Total Protein 7.2 (6.0-8.3) gm/dl Albumin 3.8 (3.4-5.0) gm/dl Globulin 3.4 (2.5-4.0) gm/dl Albumin/Globulin Ratio 1.1 (0.9-2) Lipase 38 (11-82) U/L Urine Color Yellow Urine Appearance Clear (Clear) Urine pH 5.5 (4.5-7.5) Ur Specific [place] 1.021 (1.000-1.030) Urine Protein 1+ H (Negative) Urine Glucose (UA) Trace H (Negative) Urine Ketones Trace H (Negative) Urine Blood Negative (Negative) Urine Nitrite Negative (Negative) Urine Bilirubin Negative (Negative) Urine Urobilinogen Negative (Negative) Ur Leukocyte Esterase Negative (Negative) Urine WBC (Auto) 1-5 (0-5) /hpf Urine RBC (Auto) 0-4 (0-4) /hpf U Hyaline Cast (Auto) 10-30 H (0-5) /lpf U Epithel Cells (Auto) 10-20 H (0-5) /lpf Urine Bacteria (Auto) Negative (Negative) Nasal Screen MRSA (PCR) (Negative) Salicylates 8.9 (3.0-30) mg/dl Urine Opiates Screen Neg (Neg) Ur Methadone, Qual Neg (Neg) Acetaminophen 19 (10-30) ug/ml Urine Barbiturates Neg (Neg) Lamotrigine Pending Ur Phencyclidine (PCP) Neg (Neg) U Amphetamin/Meth Scrn Neg (Neg) MDMA (Ecstasy) Screen Neg (Neg) U Benzodiazepines Scrn Neg (Neg) Ur Cocaine Metabolite Neg (Neg) U Marijuana (THC) Screen Neg (Neg) Ethyl Alcohol mg/dL 175.0 H (<10.0) mg/dl Hepatitis A IgM Ab Hep Bs Antigen Hep Bs Ag Confirmation Hep B Core IgM Ab Hepatitis C Ab (EIA) SARS-CoV-2, RNA, NAAT (NEGATIVE) Blood Type Antibody Screen
[2023-03-25] MEDS ORDERED: VECURONIUM BROMIDE 10 MG VIAL IV SCH (09:15)
--- NOTE | 2023-03-25 09:44 | Communication Note ---
Date of Service: March 25, 2023 During my evaluation the patient was a GCS of 3T unresponsive to deep painful stimuli. We ordered a EEG and proceeded with bronchoscopy for refractory h ypoxemia. During the bronchoscopy the patient became irritated and coughing robustly. The procedure was aborted. Patient had another episode of emesis. The hypoxia worsened and at this time it was discovered that the pilot plant supervisor balloon of the endotracheal tube was not holding air. This was changed by 2 person laryngoscopy. PLAN: Neuro: Acute encephalopathy upon presentation in ED -Suspect toxic/metabolic: Acute alcohol intoxication -Cannot exclude hypoxia at this time: Concerning clinical history of agonal respirations when found in [place] intubation Acute alcohol intoxication on presentation: Resolved Sedation with Versed and fentanyl Neuromuscular blockade with cis atracurium for 24 hours -Bis monitoring Suicide attempt -Suicide note left -Prior records indicate Ativan may have been taken with alcohol Schizoaffective disorder Major depressive episode -302 for suicide attempt when medically cleared, reviewed psych liaison notes -Lamictal level pending Resp: Severe acute respiratory distress syndrome secondary to aspiration of gastric contents into the airway: P to F ratio less than 100 -High PEEP low FiO2 tables -Pronation therapy -Known rheumatoid patient, care taken during procedures and patient positioning -Risks of positioning and complications outweighed by benefits given severe hypoxemia and life-threatening illness CV: Echo report from October 2022 reviewed -This appears to been obtained during an admission for upper GI bleeding which was felt to be secondary to esophagitis from NSAID use CPR performed in field -Patient did not have elevated troponins and EKG was normal sinus rhythm and has not had significant hemodynamic instability -Clinical history is not suggestive of cardiac arrest, if this occurred it appears to have been minimal in terms of affecting his cardiac function and would have been respiratory in origin Fluids/Renal: Lactic acid acidosis: Improved -Previous high gap metabolic acidosis resolved repeat toxicology labs were obtained, there is no evidence from that analysis of toxic alcohol ingestion ongoing, I also doubt there was ingestion prior and the acidosis was a mixed respiratory and metabolic process ID: Coverage for aspiration pneumonia -Convert from Zosyn to Unasyn given lack of pseudomonal risk factors GI/Nutrition: N.p.o. -History of esophagitis -Reviewed GI notes. Hemoglobin stable continue acid suppression with 80 mg twice daily infusion Mild transaminitis -Repeat Tylenol not indicative of toxic ingestion -Acute hepatitis panel Heme: Anemia -Improved compared to October labs during which patient had acute blood loss anemia secondary to esophagitis DVT prophylaxis: Lovenox and SCDs Endocrine: ICU hyperglycemia protocol TSH within normal limits on February 2023 Vascular access: Left IJ triple-lumen catheter, left arterial line Code Status: Full code Disposition: ICU I have personally spent 60 minutes of critical care time in the direct management of this patient. This is a life/limb threatening event. This includes time spent evaluating patient, direct bedside care, chart review, placing orders, interpretation of diagnostic studies, discussion with consultants, patient, and/or family members regarding treatment decisions, as well as other required patient management activities. This time is exclusive of all separately billable procedures, and teaching time and separate from and in addition to any other critical care service time. Coding Level of Care Code 80663 CRITICAL CARE EA ADD 30M Additional Critical Care Time Additional 30min Critical Care Time: Yes - 99425 x 2 (60 addl min) Additional Codes Critical Care Time - Additional 30min Critical Care Time: Yes - 32652 x 2 (60 addl min) ([id number]) Critical Care Results & Data Vital Signs (Past 12 Hours) Vital Signs Temp Pulse Pulse Resp BP BP Pulse Ox 03/25/23 07:40 85 23 96 03/25/23 06:00 83/56 L 03/25/23 06:00 35.9 C L 79 20 98 03/25/23 05:45 35.7 C L 78 21 98 03/25/23 05:45 89/56 L 98 03/25/23 05:30 91/57 L 98 03/25/23 05:30 35.5 C L 77 20 98 03/25/23 05:16 35.4 C L 76 20 98 03/25/23 05:15 89/56 L 03/25/23 05:14 35.3 C L 75 20 99 03/25/23 05:00 89/61 L 03/25/23 05:00 35.2 C L 74 20 03/25/23 04:45 35.0 C L 74 20 03/25/23 04:45 89/61 L 03/25/23 04:30 88/57 L 03/25/23 04:30 34.8 C L 74 20 03/25/23 04:15 90/57 L 03/25/23 04:15 34.7 C L 74 20 03/25/23 04:00 87 27 H 92 03/25/23 04:00 89/56 L 03/25/23 04:00 34.6 C L 75 20 96 03/25/23 04:00 03/25/23 03:47 34.5 C L 75 20 96 03/25/23 03:45 90/55 L 03/25/23 03:44 34.5 C L 75 20 96 03/25/23 03:30 91/60 L 03/25/23 03:30 34.4 C L 76 20 96 03/25/23 03:15 92/59 L 03/25/23 03:15 34.4 C L 76 20 03/25/23 03:00 101/60 03/25/23 03:00 34.3 C L 78 20 92 03/25/23 02:59 77 20 03/25/23 02:59 100/60 03/25/23 02:45 77 20 03/25/23 02:30 34.2 C L 90 21 94 03/25/23 02:16 34.2 C L 88 22 93 03/25/23 02:15 135/80 03/25/23 02:13 34.2 C L 84 20 92 03/25/23 02:01 34.3 C L 90 21 94 03/25/23 02:01 115/78 03/25/23 02:00 34.3 C L 89 20 92 03/25/23 01:46 89/66 L 03/25/23 01:45 34.4 C L 91 H 20 89 L 03/25/23 01:44 97 H 26 H 91 03/25/23 01:34 34.4 C L 102 H 25 H 87 L 03/25/23 01:34 133/90 03/25/23 01:30 34.4 C L 105 H 24 92 03/25/23 01:27 94 H 24 93 03/25/23 01:27 117/77 03/25/23 01:15 90 20 95 03/25/23 01:10 34.4 C L 105 H 24 133/90 92 03/25/23 01:10 03/25/23 01:10 03/25/23 01:02 96 H 22 92 03/25/23 01:02 100/56 L 03/25/23 00:37 77/60 L 03/25/23 00:36 96 H 21 88/54 L 95 03/25/23 00:01 93 H 22 95/59 L 95 03/24/23 23:54 99 H 23 87/51 L 93 03/24/23 23:50 94 H 16 78/64 L 97 03/24/23 23:37 97 03/24/23 23:25 104 H O2 Del Method FiO2 03/25/23 07:40 70 03/25/23 06:00 03/25/23 06:00 03/25/23 05:45 03/25/23 05:45 03/25/23 05:30 03/25/23 05:30 Mechanical Vent 70 03/25/23 05:16 03/25/23 05:15 03/25/23 05:14 03/25/23 05:00 03/25/23 05:00 03/25/23 04:45 03/25/23 04:45 03/25/23 04:30 03/25/23 04:30 03/25/23 04:15 03/25/23 04:15 03/25/23 04:00 70 03/25/23 04:00 03/25/23 04:00 Mechanical Vent 90 03/25/23 04:00 90 03/25/23 03:47 03/25/23 03:45 03/25/23 03:44 03/25/23 03:30 03/25/23 03:30 90 03/25/23 03:15 03/25/23 03:15 03/25/23 03:00 03/25/23 03:00 03/25/23 02:59 03/25/23 02:59 03/25/23 02:45 03/25/23 02:30 100 03/25/23 02:16 03/25/23 02:15 03/25/23 02:13 03/25/23 02:01 03/25/23 02:01 03/25/23 02:00 70 03/25/23 01:46 03/25/23 01:45 Mechanical Vent 100 03/25/23 01:44 70 03/25/23 01:34 03/25/23 01:34 03/25/23 01:30 03/25/23 01:27 03/25/23 01:27 03/25/23 01:15 03/25/23 01:10 Mechanical Vent 70 03/25/23 01:10 Mechanical Vent 03/25/23 01:10 40 03/25/23 01:02 Mechanical Vent 40 03/25/23 01:02 03/25/23 00:37 03/25/23 00:36 Mechanical Vent 03/25/23 00:01 Mechanical Vent 03/24/23 23:54 Mechanical Vent 03/24/23 23:50 Mechanical Vent 03/24/23 23:37 Mechanical Vent 03/24/23 23:25 Lab & Micro Results (Past 24 Hours) RBC 4.51 M/uL (4.70-6.10) L 03/25/23 WBC 12.82 K/ul (4.8-10.8) H 03/25/23 Hgb 11.5 g/dl (14.0-18.0) L 03/25/23 Hct 36.2 % (42.0-52.0) L 03/25/23 MCV 80.3 fL (80.0-100.0) 03/25/23 MCH 25.5 pg (25.0-34.0) 03/25/23 MCHC 31.8 g/dL (32.0-36.0) L 03/25/23 RDW Standard Deviation 48.1 fL (36.4-46.3) H 03/25/23 RDW Coefficient of Variation 16.7 % (11.5-14.5) H 03/25/23 Plt Count 368 K/uL (130-400) 03/25/23 MPV 9.9 fL (9.4-12.4) 03/25/23 Neutrophils (%) (Auto) 91.5 % 03/25/23 Lymphocytes (%) (Auto) 6.0 % 03/25/23 Monocytes # (Auto) 0.25 K/uL (0.11-0.59) 03/25/23 Eosinophils # (Auto) 0.00 K/uL (0.00-0.50) 03/25/23 Immature Granulocyte % (Auto) 0.4 % 03/25/23 Neutrophils # (Auto) 11.74 K/uL (1.40-6.50) H 03/25/23 Lymphocytes # (Auto) 0.77 K/uL (1.20-3.40) L 03/25/23 Monocytes # (Auto) 0.25 K/uL (0.11-0.59) 03/25/23 Eosinophils # (Auto) 0.00 K/uL (0.00-0.50) 03/25/23 Basophils # (Auto) 0.01 K/uL (0.00-0.20) 03/25/23 Immature Granulocyte # (Auto) 0.05 K/uL (0.01-0.20) 3 Na 138 mmol/L (136-145) 03/25/23 K 4.2 mmol/L (3.5-5.1) 03/25/23 Cl 107 mmol/L (98-107) 03/25/23 CO2 23 mmol/L (21-32) 03/25/23 Anion Gap 8 (3-11) 03/25/23 BUN 11 mg/dl (6-23) 03/25/23 Creatinine 0.92 mg/dl (0.6-1.4) 03/25/23 Estimated GFR ( Amer) 133.5 ml/min 03/25/23 Estimated GFR (Non-Af Amer) 115.2 ml/min 03/25/23 BUN/Creatinine Ratio 12.0 (10-20) 03/25/23 Glu 181 mg/dl (70-99(Fasting)) H 03/25/23 Ca 7.5 mg/dl (8.6-10.3) L 03/25/23 Phosphorus Level 1.8 mg/dl (2.5-4.9) L 03/25/23 Total Bilirubin 0.3 mg/dl (0.2-1.0) 03/25/23 Direct Bilirubin 0.1 mg/dl (0-0.2) 03/25/23 AST 51 U/L (13-39) H 03/25/23 ALT 63 U/L (7-52) H 03/25/23 Alkaline Phosphatase 58 U/L (34-104) 03/25/23 TP 6.7 gm/dl (6.0-8.3) 03/25/23 Albumin 3.5 gm/dl (3.4-5.0) 03/25/23 Globulin 3.4 gm/dl (2.5-4.0) 03/24/23 Albumin/Globulin Ratio 1.1 (0.9-2) 03/24/23 Mg 1.7 mg/dl (1.7-2.4) 03/25/23 05:01 Calcium Level 7.5 mg/dl (8.6-10.3) L 03/25/23 09:46 Prothromb Time International Ratio 1.1 (0.9-1.1) 03/24/23 23:3 0 Venous Blood pH 7.29 (7.36-7.41) L 03/25/23 02:27 Venous Blood Partial Pressure CO2 40 mmHg (38-50) 03/25/23 02:2 7 Venous Blood Partial Pressure O2 59 mmHg 03/25/23 02:27 Venous Blood HCO3 19 mmol/L 03/25/23 02:27 Venous Blood Base Excess -7.0 mEq/L 03/25/23 02:27 Venous Blood Oxygen Saturation 89.6 % 03/25/23 02:27 Arterial Blood pH 7.20 (7.35-7.45) L 03/25/23 09:48 Arterial Blood Partial Pressure CO2 57 mmHg (35-46) H 03/25/23 09:48 Arterial Blood Partial Pressure O2 69 mmHg (80-95) L 03/25/23 0 9:48 Arterial Blood HCO3 22 mmol/L (19-24) 03/25/23 09:48 Arterial Blood Base Excess -6.4 mEq/L (-9-1.8) 03/25/23 09:48 Arterial Blood Oxygen Saturation 92.0 % (90-95) 03/25/23 09:48 Blood Gas Oxygen Given 70% 03/25/23 09:48 Morris Test Unk (Pos) 03/25/23 09:48 Diagnostic Findings (Past 24 Hours) Cervical Spine CT 03/24/23 23:11 Exam(s): CT C SPINE EXAM: CT Cervical Spine Without Intravenous Contrast CLINICAL HISTORY: Reason for exam: ams, od. TECHNIQUE: Axial computed tomography images of the cervical spine without intravenous contrast. CTDI is 28.14 mGy and DLP is 866.59 mGy-cm. Automated exposure control was utilized for the study. A dose lowering technique was utilized adhering to the principles of ALARA. COMPARISON: No relevant prior studies available. FINDINGS: Vertebrae: Unremarkable. No acute fracture. Discs/spinal canal/neural foramina: No acute findings. No spinal canal stenosis. Soft tissues: Unremarkable. IMPRESSION: Normal cervical spine CT. Electronically signed by: Chris Wagoner MD 03/25/23 00:[address] 03/24/23 23:11 Exam(s): CT CHEST With Contrast IV Amt: 111 ML OPTIRAY 320 EXAM: CT Chest With Intravenous Contrast CLINICAL HISTORY: Reason for exam: od, CPR in field. TECHNIQUE: Axial computed tomography images of the chest with intravenous contrast. CTDI is 28.14 mGy and DLP is 866.59 mGy-cm. Automated exposure control was utilized for the study. A dose lowering technique was utilized adhering to the principles of ALARA. CONTRAST: Patient received 111 ML OPTIRAY 320 of IV contrast COMPARISON: No relevant prior studies available. FINDINGS: Lungs: Consolidations in the posterior aspect of both upper lobes and lower lobes. Pleural space: Unremarkable. No pneumothorax. No significant effusion. Heart: Unremarkable. No cardiomegaly. No significant pericardial effusion. Bones/joints: Unremarkable. No acute fracture. No dislocation. Soft tissues: Unremarkable. Vasculature: Unremarkable. No thoracic aortic aneurysm. Lymph nodes: Unremarkable. No enlarged lymph nodes. Tubes, lines and devices: The tip of the endotracheal tube is at the origin of the right main bronchus. IMPRESSION: Consolidations in the posterior aspects of both upper lobes and both lower lobes. Much of this may represent atelectasis; however, it may also represent infiltration. Aspiration pneumonia is possible in the setting of an OD. The tip of the endotracheal tube is near the origin of the right main bronchus and can be pulled back at least 3-4 cm. Electronically signed by: Chris Wagoner MD 03/25/23 00:18 AM Chest X-Ray 03/24/23 23:12 SINGLE VIEW CHEST CLINICAL HISTORY: Respiratory failure. Intubation. FINDINGS: An AP, portable, supine chest radiograph is compared to study dated 11/16/2022. The examination is degraded by portable technique and apical lordotic positioning. An endotracheal tube has been placed. The tip projects 0.8 cm above the za. The heart is enlarged. There is mild pulmonary vascular congestion. Bilateral airspace opacities are noted. No large pleural effusion or pneumothorax is seen. The bony thorax is grossly intact. IMPRESSION: 1. An endotracheal tube has been placed as above. A subsequent film shows that this has been repositioned. 2. Cardiomegaly with mild pulmonary vascular congestion. 3. Bibasilar opacities likely represent atelectasis. Correlate clinically for evidence of a superimposed pneumonia. Radiographic follow-up to resolution is recommended ACT 112: Negative or not required by law. Electronically signed by: Sky Larry M.D. 03/25/2023 7:[address] 03/24/23 23:13 Exam(s): CT HEAD Without Contrast EXAM: CT Head Without Intravenous Contrast CLINICAL HISTORY: Reason for exam: do, ams. TECHNIQUE: Axial computed tomography images of the head/brain without intravenous contrast. CTDI is 49.72 mGy and DLP is 983.45 mGy-cm. Automated exposure control was utilized for the study. A dose lowering technique was utilized adhering to the principles of ALARA. COMPARISON: No relevant prior studies available. FINDINGS: Brain: Unremarkable. No acute intracranial hemorrhage, edema or abnormal mass-effect. Ventricles: Unremarkable. No ventriculomegaly. Bones/joints: Unremarkable. No acute fracture. Soft tissues: Unremarkable. Sinuses: Unremarkable as visualized. No acute sinusitis. Mastoid air cells: Unremarkable as visualized. No mastoid effusion. IMPRESSION: Normal head/brain CT. Electronically signed by: Chris Wagoner MD 03/25/23 00:11 AM KUB X-Ray 03/25/23 01:37 KUB HISTORY: eval OGT placement COMPARISON: None. FINDINGS: The bowel gas pattern is unremarkable. There are no dilated loops of small bowel to suggest an obstruction. No renal calculi. No ureteral calculi. No pneumoperitoneum or pneumatosis. Nasogastric tube terminates in the stomach. Bilateral airspace opacities are partially visualized on this study. IMPRESSION: A nasogastric tube terminates in the stomach. ACT 112: Negative or not required by law. Electronically signed by: Abhishek Ohara M.D. 03/25/2023 7:37 AM Chest X-Ray 03/25/23 01:43 XR chest 1V portable HISTORY: evaluate for lobar collapse aspiration COMPARISON: Chest 03/24/2023. FINDINGS: The endotracheal tube terminates 5 cm and the za. A nasogastric tube terminates in the stomach. The heart is enlarged. There are low lung volumes. No pneumothorax. Left greater than right bilateral airspace opacities are again noted. This has progressed on the left. IMPRESSION: 1. Bilateral airspace opacities most pronounced on the left. This has progressed in the interval. 2. Cardiomegaly again noted. 3. Endotracheal tube terminates 5 cm from the za. ACT 112: Negative or not required by law. Electronically signed by: Abhishek Ohara M.D. 03/25/2023 7:36 AM Chest X-Ray 03/25/23 08:42 SINGLE VIEW CHEST CLINICAL HISTORY: Respiratory failure. Central venous catheter placement. FINDINGS: 2 AP, portable, upright chest radiographs are compared to study performed earlier the same day 03/25/2023. The examination is degraded by portable technique and patient rotation. An endotracheal tube and enteric tube are unchanged in position. A left internal jugular central venous catheter is in place. The tip projects over the SVC. There is mild pulmonary vascular congestion. Bilateral airspace opacities have improved as compared to previous and likely represent atelectasis. No large pleural effusion or pneumothorax is seen. The bony thorax is grossly intact. IMPRESSION: 1. Lines and tubes as above. No pneumothorax is seen following central venous catheter placement. 2. Cardiomegaly with mild pulmonary vascular congestion. 3. Bilateral airspace opacities have improved from previous and likely represent atelectasis. Correlate clinically. ACT 112: Negative or not required by law. Electronically signed by: Sky Larry M.D. 03/25/2023 10:02 AM I & O Totals 24 Hours 03/24/23 03/25/23 03/26/23 06:59 06:59 06:59 Intake Total 3463.342 / 3463.342 1652.221 / 1652.221 Output Total 2940 / 2940 Balance 523.342 / 888.735 8198.221 / 1652.221 Cumulative 03/24/23 22:44 thru 03/25/23 10:28 Intake Total 5115.563 Output Total 2940 Balance 2175.563 RT Ventilator Mngmt (Last Documented) Ventilator Ordered Settings Ventilator Support Mode Assist Control 03/25/23 07:40 Respiratory Rate 23 03/25/23 07:40 Ventilator Tidal Volume 500 03/25/23 07:40 Setting Minute Ventilation 11.5 03/25/23 07:40 Positive End Expiratory 6 03/25/23 07:40 Pressure Fraction of Inspired Oxygen 70 03/25/23 07:40 Peak Inspiratory Flow 13 03/25/23 01:44 Ventilator - PT Measurements Respiratory Rate 23 Exhaled Tidal Volume 500 Minute Ventilation 11.5 Peak Inspiratory Airway 19 Pressure Plateau Pressure 16.0 Respiratory Cycle Inspiratory: 1:1.8 Expiratory Ratio Inspiratory Phase Time 1.0 End-Tidal CO2 31 Static Lung Compliance 50.00 Dynamic Lung Compliance 38.46 Normal Static Lung Compliance 48.00
[2023-03-25] MEDS: CISATRACURIUM BESYLATE 40 MG in DEXTROSE 5% 80 ML IV SCH ×5 (09:47→22:58)
[2023-03-25] MEDS: MIDAZOLAM HCL 125 MG/250 ML BAG IV SCH (09:48)
[2023-03-25] MEDS: fentaNYL citrate 2,500 MCG/250 ML BAG IV SCH (09:48)
[2023-03-25 10:00] LABS: Base Excess ABG -6.4 mEq/L (-9-1.8); HCO3 ABG 22 mmol/L (19-24); PCO2 ABG 57 mmHg (35-46); PO2 ABG 69 mmHg (80-95)
--- NOTE | 2023-03-25 10:04 | XRay Report ---
SINGLE VIEW CHEST CLINICAL HISTORY: Respiratory failure. Central venous catheter placement. FINDINGS: 2 AP, portable, upright chest radiographs are compared to study performed earlier the same day 03/25/2023. The examination is degraded by portable technique and patient rotation. An endotrachea l tube and enteric tube are unchanged in position. A left internal jugular central venous catheter is in place. The tip projects over the SVC. There is mild pulmonary vascular congestion. Bilateral airs pace opacities have improved as compared to previous and likely represent atelectasis. No large pleur al effusion or pneumothorax is seen. The bony thorax is grossly intact. IMPRESSION: 1. Lines and tubes as above. No pneumothorax is seen following central venous catheter placement. 2. Cardiomegaly with mild pulmonary vascular congestion. 3. Bilateral airspace opacities have improved from previous and likely represent atelectasis. Correla te clinically. ACT 112: Negative or not required by law. Electronically signed by: Sky Larry M.D. 03/25/2023 10:02 AM
[2023-03-25] MEDS: ARTIFICIAL TEARS OP OINT 3.5 GM TUBE OP SCH ×4 (10:11→21:44)
[2023-03-25] MEDS: PLASMA-LYTE A 1,000 ML IV SCH ×2 (10:13→19:39)
[2023-03-25] MEDS: fentaNYL BOLUS from BAG IV PRN (10:14)
[2023-03-25] MEDS: MIDAZOLAM BOLUS FROM BAG IV PRN (10:16)
[2023-03-25 10:19] LABS: Calcium 7.5 mg/dl (8.6-10.3); Est GFR (African American) 133.5 ml/min; Est GFR (Non-African American) 115.2 ml/min; Potassium 4.2 mmol/L (3.5-5.1)
[2023-03-25] MEDS: NOREPINEPHRINE/D5W 4 MG/250 ML PLCT IV SCH ×3 (10:21→19:39)
[2023-03-25] MEDS: ICU Protocol for HYPERglycemia SCH ×4 (10:26→21:44)
--- NOTE | 2023-03-25 10:45 | Procedure Note ---
Procedure Note Date of Service March 25, 2023 Note Procedure date: Noted above Procedure: Central venous access Pre-procedure indication: Need for vasoactive medication administration, need for secure access as patient will be undergoing proning Post-procedure Diagnosis: same as above Prior to Procedure: Informed Consent: Emergent consent implied. Attending Staff: Keny Neville DO Resident/APC: Not applicable Skin Prep: Chlorhexidine Anesthesia: 4 mL 1% lidocaine without epinephrine The identity of the patient was confirmed and a bedside time out was performed. Description of Procedure: After sterile prep and sterile drape utilizing standard sterile technique the superficial skin of the left internal jugular area was anesthetized. The target vessel was identified and entered with an 18- gauge needle. Dark venous blood return was noted. A guidewire was inserted through the needle and into the vessel. The needle was withdrawn and a skin lizzie was made. A tissue dilator was advanced via Seldinger technique and removed. A triple lumen catheter was inserted via Seldinger technique and the guidewire removed. All ports ana cristina and flushed easily. A Biopatch was placed, and the catheter was secured via silk suture. A sterile dressing was then applied. Complications: None Estimated blood loss: Trace Patient tolerated the procedure well. Procedure Date: Noted Above Procedure: Procedural Ultrasound Indication: Central venous access Attending: Keny Neville DO Resident/Physician Retail Security Professional: Not applicable Artery visualized: Yes Vein visualized: Yes Compressible Vein: Yes Vein patent: Yes Guidewire or Short Catheter seen in vein prior to dilation: Yes Line confirmed in Vein with ultrasound: Yes Lung Sliding on side of attempt (if applicable): NA If no lung sliding or not obtained has CXR been ordered: Yes Impression: Successful central venous access placement Images obtained are saved for permanent record Coding CPT Codes Tubes, Drains, and Vasc Access - Tubes, Drains, and Vasc Access: [id number] Insertion Of Non-tunneled Catheter Age 7 Yrs> ([id number]) Tubes, Drains, and Vasc Access - Tubes, Drains, and Vasc Access: [id number] Ultrasound Guidance For Vascular ([id number]) [facility] [place] Codes (Charges) Tubes, Drains, and Vasc Access Procedure 1: Tubes, Drains, and Vasc Access: [id number] Insertion Of Non-tunneled Catheter Age 7 Yrs> Procedure 2: Tubes, Drains, and Vasc Access: [id number] Ultrasound Guidance For Vascular
--- NOTE | 2023-03-25 10:48 | Procedure Note ---
Procedure Note Date of Service March 25, 2023 Supervising Physician Co-Signing Physician Notes Procedure date: Noted above Procedure: Radial artery cannulation Pre-procedure Diagnosis: Need for invasive monitoring, frequent blood draws Post-procedure Diagnosis: same as above Prior to Procedure: Informed Consent: Emergent consent implied. Attending Staff: Keny Neville DO Skin Prep: Chlorhexidine Anesthesia: 3 mL 1% lidocaine without epinephrine The identity of the patient was confirmed and a bedside time out was performed. Description of Procedure: After sterile prep and sterile drape utilizing standard sterile technique the superficial skin of the left radial artery was anesthetized. The target artery was identified via dynamic ultrasound guidance and entered with a 20-gauge arrow Angiocath. Pulsatile bright red blood return was noted. Via modified Seldinger technique the self-contained guidewire was advanced and the Angiocath advanced over the guidewire. The guidewire was removed and brisk arterial blood return was noted. The pressure monitor was connected, and the arterial line was secured via silk suture. A sterile dressing was then applied. Complications: None Estimated blood loss: Trace Patient tolerated the procedure well. Procedure Date: Noted Above Procedure: Procedural Ultrasound Indication: Arterial artery cannulation Attending: Keny Neville DO Resident/Physician Color Straining Bag Washer: [Not applicable] Artery visualized: Yes Artery patent: Yes Guidewire or Short Catheter seen in vein prior to cannulation: Yes Impression: Successful radial artery access placement Images obtained are saved for permanent record Coding CPT Codes Tubes, Drains, and Vasc Access - Tubes, Drains, and Vasc Access: [id number] Arterial Cath/Cannulation Sampling/Monitoring/Transfusion ([id number]) Tubes, Drains, and Vasc Access - Tubes, Drains, and Vasc Access: [id number] Ultrasound Guidance For Vascular ([id number]) [facility] [place] Procedure Codes (Charges) Tubes, Drains, and Vasc Access Procedure 1: Tubes, Drains, and Vasc Access: [id number] Arterial Cath/Cannulation Sampling/Monitoring/Transfusion Procedure 2: Tubes, Drains, and Vasc Access: [id number] Ultrasound Guidance For Vascular
--- NOTE | 2023-03-25 10:56 | Procedure Note ---
Procedure Note Date of Service March 25, 2023 Note Procedure date: Noted above Procedure: Direct video laryngoscopy with removal of foreign body Pre-procedure Diagnosis: Need for endotracheal tube replacement secondary to malfunctioning cuff, aspiration of gastric contents Post-procedure Diagnosis: same as above Prior to Procedure: Informed Consent: Emergent consent implied Attending Staff: Keny Neville DO Anesthesia: 4 mg Versed, 100 mcg fentanyl The identity of the patient was confirmed and a bedside time out [was] performed. Description of Procedure: Patient was evaluated for severe refractory hypoxemia. Was discovered the patient's endotracheal tube had a incompetent balloon not allowing patient to maintain positive and expiratory pressure. Patient's endotracheal tube necessitates a change with a tube exchanger this was done under direct video laryngoscopy. There was extensive debris of gastric contents which grossly appeared to be steak and mushroom food particles in and on the glottic opening around the endotracheal tube and sitting on the cuff on and bel ow the true vocal cords. The material was removed with Yankauer suction prior to removal of the endotracheal tube to prevent further aspiration into the airway. After the food debris was removed a tube exchanger device was inserted into the lumen of the endotracheal tube the endotracheal tube was removed and replaced with an 8.5 endotracheal tube and secured with a commercial securement device Complications: None, oxygen saturations improved Patient tolerated the procedure well. Coding CPT Codes ENT - ENT: 28790 Diagnostic laryngoscopy ([id number]) [facility] [place] Codes (Charges) ENT ENT: 30098 Diagnostic laryngoscopy (Please use CPT code 69143)
[2023-03-25] MEDS: ENOXAPARIN INJ 40 MG/0.4 ML SYR SQ SCH (12:39)
--- NOTE | 2023-03-25 14:30 | Communication Note ---
Date of Service: March 25, 2023 Psychiatry Note: Psychiatry consult request received given Jose presented unresponsiveness in setting of suspected suicide attempt via overdose of Ativan and possibly alcohol. He is known to our service from previous inpatient psychiatry admission to [facility] in late May/early June 2022. Given that he is currently intubated, full psychiatry assessment/consult to follow when he is able to participate in an interview. A/P: 27 yo man with history of ADHD, schizoaffective disorder and past SI requiring ICU admission following suspected suicide attempt via overdose. 302 warrant on the chart, psych liason to confirm details of expiration date, he will be assessed for completion of warrant when he is able to participate in a psychiatric assessment. Until that time: -Initiate 1-on-1 and suicide precautions once alert/extubated -Would hold all psychiatric medications in setting of overdose -Do not discharge or allow to leave AMA, if he attempt to do so please call security and psych liason; current 302 warrant The patient is not able to leave the hospital AMA as there is an active 302 warrant. They should remain on safety precautions with 1-on-1 pending ability to make a determination re: need for involuntary psychiatric treatment once alert/extubated. The determination will need to be made within two hours of medical clearance or the warrant will on 03/29/2023 at 1911. At this time, the 302 is unable to be completed becausethe patient is intubated and cannot participate in a psychiatric assessment. The patient will be reassessed by nursing every hour and MD will be notified when patient is able to participate in an assessment/medically cleared.
--- NOTE | 2023-03-25 16:00 | Procedure Note ---
Procedure Note Date of Service March 25, 2023 Note Procedure date: Noted above Procedure: Radial artery cannulation Pre-procedure Diagnosis: Need for invasive monitoring, frequent blood draws, dislodgment of left arterial line Post-procedure Diagnosis: same as above Prior to Procedure: Informed Consent: Emergent consent implied. Attending Staff: Keny Neville DO Skin Prep: Chlorhexidine Anesthesia: 3 mL 1% lidocaine without epinephrine The identity of the patient was confirmed and a bedside time out was performed. Description of Procedure: After sterile prep and sterile drape utilizing standard sterile technique the superficial skin of the right radial artery was anesthetized. The target artery was identified via dynamic ultrasound guidance and entered with a 20-gauge arrow Angiocath. Pulsatile bright red blood return was noted. Via modified Seldinger technique the self-contained guidewire was advanced and the Angiocath advanced over the guidewire. The guidewire was removed and brisk arterial blood return was noted. The pressure monitor was connected, and the arterial line was secured via silk suture. A sterile dressing was then applied. Complications: None Estimated blood loss: Trace Patient tolerated the procedure well. Procedure Date: Noted Above Procedure: Procedural Ultrasound Indication: Arterial artery cannulation Attending: Keny Neivlle DO Resident/Physician Outreach Specialist: [Not applicable] Artery visualized: Yes Artery patent: Yes Guidewire or Short Catheter seen in vein prior to cannulation: Yes Impression: Successful radial artery access placement Images obtained are saved for permanent record Coding CPT Codes Tubes, Drains, and Vasc Access - Tubes, Drains, and Vasc Access: [id number] Arterial Cath/Cannulation Sampling/Monitoring/Transfusion ([id number]) [facility] [place] Procedure Codes (Charges) Tubes, Drains, and Vasc Access Procedure 1: Tubes, Drains, and Vasc Access: [id number] Arterial Cath/Cannulation Sampling/Monitoring/Transfusion (Right-sided procedure)
--- NOTE | 2023-03-25 16:27 | Electrocardiogram Report ---
Test Reason : Blood Pressure : / mmHG Vent. Rate : 090 BPM Atrial Rate : 090 BPM P-R Int : 196 ms QRS Dur : 088 ms QT Int : 374 ms P-R-T Axes : 051 046 049 degrees QTc Int : 457 ms Normal sinus rhythm Normal ECG When compared with ECG of 24-MAR-2023 23:14, (unconfirmed) No significant change was found Confirmed by Jonathan Trinidad ([id number]) on 03/25/2023 4:27:34 PM Referred By: REFERRED SELF Confirmed By:Jim Trinidad
--- NOTE | 2023-03-25 16:27 | Electrocardiogram Report ---
Test Reason : Blood Pressure : / mmHG Vent. Rate : 118 BPM Atrial Rate : 118 BPM P-R Int : 156 ms QRS Dur : 096 ms QT Int : 356 ms P-R-T Axes : 057 077 070 degrees QTc Int : 498 ms Sinus tachycardia Otherwise normal ECG When compared with ECG of 16-NOV-2022 17:38, QRS duration has increased ST now depressed in Inferior leads Nonspecific T wave abnormality no longer evident in Inferior leads T wave amplitude has increased in Anterior leads Confirmed by Jonathan Trinidad ([id number]) on 03/25/2023 4:27:00 PM Referred By: REFERRED SELF Confirmed By:Jim Trinidad
--- NOTE | 2023-03-25 17:14 | Hospitalist Progress Note ---
Date of Service March 25, 2023 Assessment & Plan (1) Hypotension: Plan: Acute metabolic encephalopathy Multifactorial: Toxic and metabolic: Drug overdose, alcohol intoxication, Hypoxia Acute respiratory failure with hypoxia and Hypercarbia Suicide Attempt --Head CT: Normal head/brain CT. S/P Intubation Currently on Atracurium for 24 hrs Appreciate critical care input Vent management as per ICU team Psychiatry on board Aspiration pneumonia --CXR:Bilateral airspace opacities most pronounced on the left Attempted bronchoscopy for refractory hypoxia--aborted the procedure--due to extreme agitation during the procedure Aspiration precautions Currently on Unasyn Hypophosphatemia Hypocalcemia Replete electrolytes as needed Bloody emesis Suspected upper GI bleed H/O NSAID esophagitis DD: Esophagitis, peptic ulcer disease, gastritis etc Monitor H&H and transfuse as needed GI on board Continue IV Protonix ADHD Schizoaffective disorder Past suicidal ideation One-to-one observation, suicide precautions Hold all antipsychotic medications for now Cannot leave AMA, [address] Combined respiratory/metabolic acidosis Lactic acidosis Lactic acid levels trended down Received IV bicarbonate ANUEL CPAP intolerance H/O Congenital nasal septal deviation S/P surgery per record DVT Px: SCDs Code Status Full code Admission and Anticipated Discharge Date Admission Date: March 25, 2023 Subjective Patient is seen and examined at bedside Currently intubated and sedated Unable to obtain any history Review of Systems Review of Systems: All systems reviewed & are unremarkable except as noted in Subjective Physical Exam Physical Exam: Physical Exam: Vitals signs as noted above General Appearance:Obese, no apparent distress,+Intubated, Prone Head: normocephalic, Atraumatic Eyes: normal inspection, EOMI Neck: supple, Trachea midline Respiratory/Chest: Normal breath sounds, CTA, No accessory muscle use Cardiovascular: S1, S2, No murmur Abdomen/GI:Soft, Non tender, Bowel sounds present Extremities/Musculoskeletal:normal inspection, no edema Neurologic/Psych:Unable to perform neurological exam Skin: normal color, warm Results & Data Results & Data Vital Signs (Past 12 Hours) Vital Signs Temp Pulse Resp BP Pulse Ox O2 Del Method FiO2 03/25/23 16:00 50 03/25/23 15:26 94 H 20 96 70 03/25/23 15:01 93/58 L 03/25/23 15:01 37.3 C 93 H 20 96 03/25/23 15:00 37.3 C 92 H 20 95 03/25/23 14:01 37.2 C 95 H 22 94 03/25/23 14:01 102/60 03/25/23 14:00 37.2 C 94 H 22 03/25/23 13:00 100/63 03/25/23 13:00 37.1 C 91 H 21 94 03/25/23 12:53 101/55 L 03/25/23 12:53 37.0 C 90 18 95 03/25/23 12:00 37.0 C 93 H 21 94 03/25/23 11:00 121/72 03/25/23 11:00 37.0 C 94 H 20 92 03/25/23 10:36 94 H 20 91 100 03/25/23 10:30 112/72 03/25/23 10:30 37.0 C 95 H 20 91 03/25/23 10:25 114/66 03/25/23 10:25 37.0 C 94 H 18 90 03/25/23 10:20 114/64 03/25/23 10:20 37.0 C 93 H 21 90 03/25/23 10:15 108/63 03/25/23 10:15 37.0 C 92 H 20 90 03/25/23 10:10 36.9 C 93 H 18 90 03/25/23 10:10 104/59 L 03/25/23 10:05 107/58 L 03/25/23 10:05 36.9 C 95 H 23 89 L 03/25/23 10:00 102/58 L 03/25/23 10:00 36.9 C 94 H 18 89 L 03/25/23 09:55 116/70 03/25/23 09:55 36.9 C 97 H 20 92 03/25/23 09:50 112/60 03/25/23 09:50 36.9 C 95 H 17 90 03/25/23 09:45 101/55 L 03/25/23 09:45 36.9 C 97 H 20 89 L 03/25/23 09:40 104/50 L 03/25/23 09:40 36.8 C 95 H 20 89 L 03/25/23 09:35 118/61 03/25/23 09:35 36.8 C 101 H 17 91 03/25/23 09:30 100/57 L 03/25/23 09:30 36.8 C 100 H 20 89 L 03/25/23 09:25 110/51 L 03/25/23 09:25 36.7 C 99 H 20 89 L 03/25/23 09:20 36.7 C 102 H 17 91 03/25/23 09:20 110/58 L 03/25/23 09:15 36.7 C 107 H 20 91 03/25/23 09:15 112/63 03/25/23 09:10 110/60 03/25/23 09:10 36.8 C 112 H 22 90 03/25/23 09:05 110/60 03/25/23 09:05 36.8 C 107 H 20 89 L 03/25/23 09:00 36.8 C 108 H 23 91 03/25/23 09:00 115/58 L 03/25/23 08:55 36.8 C 106 H 14 92 03/25/23 08:55 111/58 L 03/25/23 08:50 36.8 C 105 H 13 92 03/25/23 08:50 108/51 L 03/25/23 08:45 108/52 L 03/25/23 08:00 Mechanical Vent 70 03/25/23 08:00 70 03/25/23 07:40 85 23 96 70 03/25/23 06:00 83/56 L 03/25/23 06:00 35.9 C L 79 20 98 03/25/23 05:45 35.7 C L 78 21 98 03/25/23 05:45 89/56 L 98 03/25/23 05:30 91/57 L 98 03/25/23 05:30 35.5 C L 77 20 98 Mechanical Vent 70 03/25/23 05:16 35.4 C L 76 20 98 03/25/23 05:15 89/56 L 03/25/23 05:14 35.3 C L 75 20 99 Laboratory Results Short CBC 03/24/23 03/25/23 Range/Units 23:30 02:27 WBC 10.32 12.82 H (4.8-10.8) K/ul Hgb 12.2 L 11.5 L (14.0-18.0) g/dl Hct 38.4 L 36.2 L (42.0-52.0) % Plt Count 437 H 368 (130-400) K/uL BMP 03/24/23 03/25/23 03/25/23 23:30 02:27 09:46 Sodium 140 139 138 Potassium 3.6 4.5 D 4.2 Chloride 108 H 110 H 107 Carbon Dioxide 19 L 18 L 23 BUN 15 13 11 Creatinine 1.20 0.91 0.92 Glucose 215 H 138 H 181 H Calcium 7.7 L 7.6 L 7.5 L Cardiac Enzymes 03/24/23 Range/Units 23:30 Total Creatine Kinase 102 (30-223) U/L Liver Function 03/24/23 03/25/23 Range/Units 23:30 02:27 Total Bilirubin 0.4 0.3 (0.2-1.0) mg/dl Direct Bilirubin 0.1 (0-0.2) mg/dl AST 54 H 51 H (13-39) U/L ALT 63 H 63 H (7-52) U/L Alkaline Phosphatase 68 58 (34-104) U/L Albumin 3.8 3.5 (3.4-5.0) gm/dl Urine 03/24/23 Range/Units 23:30 Urine Color Yellow Urine Appearance Clear (Clear) Urine pH 5.5 (4.5-7.5) Ur Specific [place] 1.021 (1.000-1.030) Urine Protein 1+ H (Negative) Urine Glucose (UA) Trace H (Negative)
[2023-03-25 17:31] LABS: Hematocrit (blood only) 33.8 % (42.0-52.0); Hemoglobin 10.9 g/dl (14.0-18.0)
[2023-03-25] MEDS: UNASYN 3000MG / NS q6h IV SCH ×2 (18:32→23:46)
[2023-03-25] MEDS: PANTOprazole 80 MG in DEXTROSE 5% 100 ML IV SCH (19:39)
[2023-03-25 20:10] LABS: Base Excess ABG 0.8 mEq/L (-9-1.8); HCO3 ABG 26 mmol/L (19-24); Oxygen Saturation ABG 98.9 % (90-95); PCO2 ABG 43 mmHg (35-46); PO2 ABG 83 mmHg (80-95); pH ABG 7.39 (7.35-7.45)
[2023-03-25 20:20] LABS: Allen Test Pos (Pos)
[2023-03-25] MEDS ORDERED: PANTOprazole 80 MG in SYRINGE 0 ML IV SCH (21:00)
[2023-03-26] MEDS: CISATRACURIUM BESYLATE 40 MG in DEXTROSE 5% 80 ML IV SCH ×7 (03:25→19:04)
[2023-03-26] MEDS: ARTIFICIAL TEARS OP OINT 3.5 GM TUBE OP SCH ×6 (03:26→21:13)
[2023-03-26] MEDS: NOREPINEPHRINE/D5W 4 MG/250 ML PLCT IV SCH (04:04)
[2023-03-26 04:40] LABS: Hematocrit (blood only) 37.3 % (42.0-52.0); Hemoglobin 11.7 g/dl (14.0-18.0); Mean Corpuscular Hemoglobin 25.5 pg (25.0-34.0); Mean Corpuscular Hgb Conc 31.4 g/dL (32.0-36.0); Mean Corpuscular Volume 81.3 fL (80.0-100.0); Platelet Count 546 K/uL (130-400); RDW Coefficient of Variation 17.5 % (11.5-14.5); Red Blood Count 4.59 M/uL (4.70-6.10)
[2023-03-26 04:54] LABS: Albumin Globulin Ratio 1.1 (0.9-2); Albumin Level 3.6 gm/dl (3.4-5.0); BUN Creatinine Ratio 11.8 (10-20); Bilirubin,Total 0.4 mg/dl (0.2-1.0); Calcium 8.4 mg/dl (8.6-10.3); Creatinine Clr Calc Pharmacy 173.1 ml/min; Est GFR (African American) 131.8 ml/min; Est GFR (Non-African American) 113.7 ml/min; Globulin 3.4 gm/dl (2.5-4.0); Magnesium 2.1 mg/dl (1.7-2.4); Phosphorus 3.2 mg/dl (2.5-4.9); Potassium 3.3 mmol/L (3.5-5.1)
[2023-03-26] MEDS: PLASMA-LYTE A 1,000 ML IV SCH ×2 (05:10→19:27)
[2023-03-26] MEDS: UNASYN 3000MG / NS q6h IV SCH ×4 (05:10→23:45)
[2023-03-26] MEDS: POTASSIUM CHLORIDE / WTR 10 MEQ/100 ML PLCT IV SCH ×4 (06:28→10:53)
[2023-03-26] MEDS: ENOXAPARIN INJ 40 MG/0.4 ML SYR SQ SCH ×2 (07:43→21:13)
--- NOTE | 2023-03-26 07:48 | XRay Report ---
XR chest 1V portable CLINICAL HISTORY: Respiratory failure. COMPARISON STUDY: Chest CT March 24, 2023. Chest radiograph March 25, 2023. FINDINGS: Tip of endotracheal tube is 4.4 cm above the za. Tip of nasogastric tube is within the gastric fundus. A left internal jugular central line is in place. Tip is within the distal SVC. There is no pneumothorax. Cardiomediastinal silhouette is stable. Suspected bibasilar opacities persist. T here is no evidence for pulmonary edema. Suspected small bilateral pleural effusions. IMPRESSION: 1. Satisfactory positioning of the endotracheal tube. 2. Persistent bibasilar opacities which could reflect pneumonia or atelectasis. 3. Suspected small bilateral pleural effusions. ACT 112: Negative or not required by law. Electronically signed by: Cuate You M.D. 03/26/2023 7:46 AM
[2023-03-26] MEDS: PANTOprazole 80 MG in DEXTROSE 5% 100 ML IV SCH (07:53)
--- NOTE | 2023-03-26 08:10 | Critical Care Progress Note ---
Date of Service March 26, 2023 Assessment & Plan (1) Overdose by ingestion: (2) Alcohol intoxication: (3) Respiratory failure: (4) Rheumatoid arthritis: (5) Schizoaffective disorder: Plan Reason Critically Ill: 27 YOM admitted to ICU post intentional overdose via ingestion, now intubated and mechanically ventilated. Ingestion of Ativan and ETOH Neuro: Acute encephalopathy upon presentation in ED -Suspect toxic/metabolic: Multifactorial -Cannot exclude hypoxic injury at this time: Concerning clinical history of agonal respirations when found in [place] intubation -Acute alcohol intoxication on presentation: Resolved Sedation with Versed and fentanyl Neuromuscular blockade with cis atracurium with Bis monitoring -Attempt to discontinue today Suicide attempt -Suicide note left -Records indicate Ativan may have been taken with alcohol Schizoaffective disorder Major depressive episode -302 for suicide attempt when medically cleared, reviewed psych liaison notes -Lamictal level: pending Resp: Severe acute respiratory distress syndrome secondary to aspiration of gastric contents into the airway: P to F ratio 170 -High PEEP low FiO2 tables: Box 8 -Pronation therapy -Known rheumatoid patient, care taken during procedures and patient positioning -Risks of positioning and complications outweighed by benefits given severe hypoxemia and life-threatening illness Aspiration into bronchial tree -Consider bronchoscopy today to remove foreign material CV: Echo report from October 2022 reviewed -This appears to been obtained during an admission for upper GI bleeding which was felt to be secondary to esophagitis from NSAID use CPR performed in field -Patient did not have elevated troponins and EKG was normal sinus rhythm and has not had significant hemodynamic instability -Clinical history is not suggestive of cardiac arrest, if this occurred it appears to have been minimal in terms of affecting his cardiac function and would have been respiratory in origin Fluids/Renal: Lactic acid acidosis: Improved Mild hypokalemia: repleting - electrolyte protocol ID: Coverage for aspiration pneumonia -Unasyn day #2 GI/Nutrition: Trickle tube feeds today. -History of esophagitis: October 2022 -Reviewed GI notes. Hemoglobin stable continue acid suppression with 80 mg twice daily infusion Mild transaminitis -Repeat Tylenol not indicative of toxic ingestion -Acute hepatitis panel: pending Heme: Anemia -Improved compared to October labs during which patient had acute blood loss anemia secondary to esophagitis Leukocytosis: Acute phase reactant DVT prophylaxis: Lovenox and SCDs Endocrine: ICU hyperglycemia protocol TSH within normal limits on February 2023 Vascular access: Left IJ triple-lumen catheter, left arterial line Code Status: Full code Disposition: ICU Admission and Anticipated Discharge Date Admission Date: March 25, 2023 Supervising Physician Co-Signing Physician Notes I have personally spent 70 minutes of critical care time in the direct management of this patient. This is a life/limb threatening event. This includes time spent evaluating patient, direct bedside care, chart review, placing orders, interpretation of diagnostic studies, discussion with consultants, patient, and/or family members regarding treatment decisions, as well as other required patient management activities. This time is exclusive of all separately billable procedures, and teaching time and separate from and in addition to any other critical care service time. Subjective Patient was returned to supine position overnight. Patient was tachycardic but otherwise no adverse events. Updated mother yesterday evening when she arrived at bedside. She is requesting additional information regarding treatment and events: Possible access to patient's suicide notes, referred mother to patient advocate/patient financial foundations representative/service excellence. Review of Systems Review of Systems: Unobtainable due to endotracheal tube Physical Exam Physical Exam: General: Sedated. Under neuromuscular blockade. Nontoxic. Skin: Warm, dry, Head: Atraumatic Ears, nose, mouth and throat: airway obscured by endotracheal tube Cardiovascular: Normal peripheral perfusion Respiratory: Ventilator settings reviewed Gastrointestinal: Non distended Musculoskeletal: No deformity Results & Data Results & Data Vital Signs (Past 12 Hours) Vital Signs Temp Pulse Resp BP Pulse Ox FiO2 03/26/23 07:09 154 H 26 H 93 50 03/26/23 06:15 26 H 50 03/26/23 06:00 36.9 C 115 H 26 H 81 L 03/26/23 05:01 168/83 H 03/26/23 05:01 36.7 C 140 H 20 92 03/26/23 05:00 36.7 C 146 H 20 90 03/26/23 04:01 36.5 C 147 H 20 92 03/26/23 04:01 164/110 H 03/26/23 04:00 36.5 C 139 H 20 92 03/26/23 04:00 50 03/26/23 03:01 36.3 C L 137 H 20 93 03/26/23 03:01 175/96 H 03/26/23 03:00 36.3 C L 141 H 20 93 03/26/23 02:43 36.3 C L 136 H 20 91 03/26/23 02:43 158/96 H 03/26/23 02:30 36.4 C L 145 H 20 90 03/26/23 02:00 21 03/26/23 02:00 147 H 20 91 50 03/26/23 01:30 36.6 C 96 H 20 99 03/26/23 01:01 36.7 C 103 H 20 97 03/26/23 01:01 106/59 L 03/26/23 01:00 36.7 C 108 H 20 03/26/23 00:30 36.7 C 107 H 20 97 03/26/23 00:00 107/60 03/26/23 00:00 36.8 C 106 H 20 03/26/23 00:00 40 03/26/23 00:00 141/70 H 03/25/23 23:30 36.9 C 126 H 20 95 03/25/23 23:00 37.0 C 102 H 20 03/25/23 23:00 106/68 03/25/23 22:30 96 H 20 96 40 03/25/23 22:30 37.1 C 97 H 20 96 03/25/23 22:01 100/58 L 03/25/23 22:01 37.1 C 97 H 20 96 03/25/23 22:00 37.1 C 96 H 20 96 03/25/23 21:30 37.1 C 99 H 20 94 03/25/23 21:00 103/65 03/25/23 21:00 37.1 C 99 H 20 95 03/25/23 20:30 37.2 C 97 H 20 94 Critical Care Results & Data Vital Signs (Past 12 Hours) Vital Signs Temp Pulse Resp BP Pulse Ox FiO2 03/26/23 07:09 154 H 26 H 93 50 03/26/23 06:15 26 H 50 03/26/23 06:00 36.9 C 115 H 26 H 81 L 03/26/23 05:01 168/83 H 03/26/23 05:01 36.7 C 140 H 20 92 03/26/23 05:00 36.7 C 146 H 20 90 03/26/23 04:01 36.5 C 147 H 20 92 03/26/23 04:01 164/110 H 03/26/23 04:00 36.5 C 139 H 20 92 03/26/23 04:00 50 03/26/23 03:01 36.3 C L 137 H 20 93 03/26/23 03:01 175/96 H 03/26/23 03:00 36.3 C L 141 H 20 93 03/26/23 02:43 36.3 C L 136 H 20 91 03/26/23 02:43 158/96 H 03/26/23 02:30 36.4 C L 145 H 20 90 03/26/23 02:00 21 03/26/23 02:00 147 H 20 91 50 03/26/23 01:30 36.6 C 96 H 20 99 03/26/23 01:01 36.7 C 103 H 20 97 03/26/23 01:01 106/59 L 03/26/23 01:00 36.7 C 108 H 20 03/26/23 00:30 36.7 C 107 H 20 97 03/26/23 00:00 107/60 03/26/23 00:00 36.8 C 106 H 20 03/26/23 00:00 40 03/26/23 00:00 141/70 H 03/25/23 23:30 36.9 C 126 H 20 95 03/25/23 23:00 37.0 C 102 H 20 03/25/23 23:00 106/68 03/25/23 22:30 96 H 20 96 40 03/25/23 22:30 37.1 C 97 H 20 96 03/25/23 22:01 100/58 L 03/25/23 22:01 37.1 C 97 H 20 96 03/25/23 22:00 37.1 C 96 H 20 96 03/25/23 21:30 37.1 C 99 H 20 94 03/25/23 21:00 103/65 03/25/23 21:00 37.1 C 99 H 20 95 03/25/23 20:30 37.2 C 97 H 20 94 Lab & Micro Results (Past 24 Hours) RBC 4.59 M/uL (4.70-6.10) L 03/26/23 WBC 31.00 K/ul (4.8-10.8) H* 03/26/23 Hgb 11.7 g/dl (14.0-18.0) L 03/26/23 Hct 37.3 % (42.0-52.0) L 03/26/23 MCV 81.3 fL (80.0-100.0) 03/26/23 MCH 25.5 pg (25.0-34.0) 03/26/23 MCHC 31.4 g/dL (32.0-36.0) L 03/26/23 RDW Standard Deviation 51.0 fL (36.4-46.3) H 03/26/23 RDW Coefficient of Variation 17.5 % (11.5-14.5) H 03/26/23 Plt Count 546 K/uL (130-400) H 03/26/23 MPV 10.0 fL (9.4-12.4) 03/26/23 Na 137 mmol/L (136-145) 03/26/23 K 3.3 mmol/L (3.5-5.1) L 03/26/23 Cl 104 mmol/L (98-107) 03/26/23 CO2 25 mmol/L (21-32) 03/26/23 Anion Gap 8 (3-11) 03/26/23 BUN 11 mg/dl (6-23) 03/26/23 Creatinine 0.93 mg/dl (0.6-1.4) 03/26/23 Estimated GFR ( Amer) 131.8 ml/min 03/26/23 Estimated GFR (Non-Af Amer) 113.7 ml/min 03/26/23 BUN/Creatinine Ratio 11.8 (10-20) 03/26/23 Glu 164 mg/dl (70-99(Fasting)) H 03/26/23 Ca 8.4 mg/dl (8.6-10.3) L 03/26/23 Phosphorus Level 3.2 mg/dl (2.5-4.9) 03/26/23 Total Bilirubin 0.4 mg/dl (0.2-1.0) 03/26/23 AST 37 U/L (13-39) 03/26/23 ALT 51 U/L (7-52) 03/26/23 Alkaline Phosphatase 59 U/L (34-104) 03/26/23 TP 7.0 gm/dl (6.0-8.3) 03/26/23 Albumin 3.6 gm/dl (3.4-5.0) 03/26/23 Globulin 3.4 gm/dl (2.5-4.0) 03/26/23 Albumin/Globulin Ratio 1.1 (0.9-2) 03/26/23 Mg 2.1 mg/dl (1.7-2.4) 03/26/23 03:40 Calcium Level 8.4 mg/dl (8.6-10.3) L 03/26/23 03:40 Arterial Blood pH 7.39 (7.35-7.45) 03/25/23 20:00 Arterial Blood Partial Pressure CO2 43 mmHg (35-46) 03/25/23 20 :00 Arterial Blood Partial Pressure O2 83 mmHg (80-95) 03/25/23 20: 00 Arterial Blood HCO3 26 mmol/L (19-24) H 03/25/23 20:00 Arterial Blood Base Excess 0.8 mEq/L (-9-1.8) 03/25/23 20:00 Arterial Blood Oxygen Saturation 98.9 % (90-95) H 03/25/23 20:0 0 Blood Gas Oxygen Given 50% 03/25/23 20:00 Morris Test Pos (Pos) 03/25/23 20:00 Diagnostic Findings (Past 24 Hours) Chest X-Ray 03/25/23 08:42 SINGLE VIEW CHEST CLINICAL HISTORY: Respiratory failure. Central venous catheter placement. FINDINGS: 2 AP, portable, upright chest radiographs are compared to study performed earlier the same day 03/25/2023. The examination is degraded by portable technique and patient rotation. An endotracheal tube and enteric tube are unchanged in position. A left internal jugular central venous catheter is in place. The tip projects over the SVC. There is mild pulmonary vascular congestion. Bilateral airspace opacities have improved as compared to previous and likely represent atelectasis. No large pleural effusion or pneumothorax is seen. The bony thorax is grossly intact. IMPRESSION: 1. Lines and tubes as above. No pneumothorax is seen following central venous catheter placement. 2. Cardiomegaly with mild pulmonary vascular congestion. 3. Bilateral airspace opacities have improved from previous and likely represent atelectasis. Correlate clinically. ACT 112: Negative or not required by law. Electronically signed by: Sky Larry M.D. 03/25/2023 10:02 AM Chest X-Ray 03/26/23 07:00 XR chest 1V portable CLINICAL HISTORY: Respiratory failure. COMPARISON STUDY: Chest CT March 24, 2023. Chest radiograph March 25, 2023. FINDINGS: Tip of endotracheal tube is 4.4 cm above the za. Tip of nasogastric tube is within the gastric fundus. A left internal jugular central line is in place. Tip is within the distal SVC. There is no pneumothorax. Cardiomediastinal silhouette is stable. Suspected bibasilar opacities persist. There is no evidence for pulmonary edema. Suspected small bilateral pleural effusions. IMPRESSION: 1. Satisfactory positioning of the endotracheal tube. 2. Persistent bibasilar opacities which could reflect pneumonia or atelectasis. 3. Suspected small bilateral pleural effusions. ACT 112: Negative or not required by law. Electronically signed by: Cuate You M.D. 03/26/2023 7:46 AM I & O Totals 24 Hours 03/25/23 03/26/23 03/27/23 06:59 06:59 06:59 Intake Total 3463.342 / 3463.342 4572.356 / 4572.356 444.30 / 444.30 Output Total 2940 / 2940 3450 / 3450 Balance 523.342 / 785.059 3386.356 / 1122.356 444.30 / 444.30 Cumulative 03/24/23 22:44 thru 03/26/23 08:15 Intake Total 8479.998 Output Total 6390 Balance 2089.998 RT Ventilator Mngmt (Last Documented) Ventilator Ordered Settings Ventilator Support Mode Assist Control 03/26/23 07:09 Respiratory Rate 26 03/26/23 07:09 Ventilator Tidal Volume 500 03/26/23 07:09 Setting Minute Ventilation 13 03/26/23 07:09 Positive End Expiratory 16 03/26/23 07:09 Pressure Fraction of Inspired Oxygen 50 03/26/23 07:09 Peak Inspiratory Flow 13 03/25/23 01:44 Machine Comment Changes made per dr. sorenson 03/25/23 10:36 Ventilator - PT Measurements Respiratory Rate 26 Exhaled Tidal Volume 500 Minute Ventilation 13 Peak Inspiratory Airway 31 Pressure Plateau Pressure 26 Respiratory Cycle Inspiratory: 1:1.3 Expiratory Ratio Inspiratory Phase Time 1 End-Tidal CO2 41 Static Lung Compliance 50.00 Dynamic Lung Compliance 33.33 Normal Static Lung Compliance 47.00 Patient Measurements Comment Settings changed after ABG Coding Level of Care Code 55980 CRITICAL CARE 1ST 30-74M Diagnoses Overdose by ingestion T50.901A Alcohol intoxication F10.921 Complication of substance-induced condition: with delirium Respiratory failure J96.02 Chronicity: acute Respiratory failure complication: hypercapnia Rheumatoid arthritis, involving unspecified site, unspecified whether rheumatoid factor present M06.9 Rheumatoid arthritis location: unspecified site Rheumatoid factor presence: unspecified presence Schizoaffective disorder F25.0 Schizoaffective disorder type: bipolar (2) Alcohol intoxication Complication of substance-induced condition: with delirium Qualified Code(s): F10.921 - Alcohol use, unspecified with intoxication delirium (3) Respiratory failure Chronicity: acute Respiratory failure complication: hypercapnia Qualified Code(s): J96.02 - Acute respiratory failure with hypercapnia (4) Rheumatoid arthritis Rheumatoid arthritis location: unspecified site Rheumatoid factor presence: unspecified presence Qualified Code(s): M06.9 - Rheumatoid arthritis, unspecified (5) Schizoaffective disorder Schizoaffective disorder type: bipolar Qualified Code(s): F25.0 - Schizoaffective disorder, bipolar type
[2023-03-26] MEDS ORDERED: GLUCOSE 40% GEL 15 GM TUBE PO PRN (08:12)
[2023-03-26] MEDS ORDERED: DEXTROSE 50% 50 ML SYRINGE IV PRN (08:12)
[2023-03-26] MEDS ORDERED: GLUCAGON FOR INJ 1 MG VIAL SQ PRN (08:12)
[2023-03-26] MEDS ORDERED: CARBOHYDRATES FOR HYPOGLYCEMIA PO PRN (08:12)
[2023-03-26] MEDS ORDERED: GLUCOSE 10 TAB/TUBE PO PRN (08:12)
[2023-03-26] MEDS: ICU Protocol for HYPERglycemia SCH (08:15)
[2023-03-26] MEDS: fentaNYL citrate 2,500 MCG/250 ML BAG IV SCH ×2 (08:31→19:02)
--- NOTE | 2023-03-26 08:55 | Communication Note ---
Date of Service: March 26, 2023 Pt was seen and reviewed, chart reviewed. Remains intubated, sedated. No stools documented. No further report of GI output. HGB has remained stable. BUN is not elevated. No acute indication for endoscopic evaluation. Please refer to yesterday's consultation note for further recommendations and plans. Please recall GI as needed. Thank you for allowing us to participate in the care of this patient. Please call with any acute changes, questions or concerns. Please see addendum below with additional recommendation from my supervising physician.
[2023-03-26 10:02] LABS: HBSAG NON-REACTIVE (NON-REACTIVE); Hepatitis A Antibody IgM NON-REACTIVE (NON-REACTIVE); Hepatitis B Core Antibody IgM NON-REACTIVE (NON-REACTIVE)
--- NOTE | 2023-03-26 10:12 | Communication Note ---
Date of Service: March 26, 2023 Psychiatry Update: Patient remains intubated and unable to participate in any type of psychiatric interview or assessment at this time. Due to this they are also unable to provide consent for psychiatry to share any information with others. Psych liason can listen to any information their family or others want to share with us to help with treatment. A/P: Patient with history of ADHD, schizoaffective disorder and past SI requiring ICU admission following suspected suicide attempt via overdose. Suicide letters/emails in the chart consistent with this being an intentional overdose. 302 commitment on the chart. -Initiate 1-on-1 and suicide precautions once alert/extubated -Would hold all psychiatric medications in setting of overdose -Do not discharge or allow to leave AMA, if they attempt to do so please call security and psych liason; current 302 commitment -Full psych consult to follow once they are able to communicate/participate in assessment The patient remains hospitalized on a completed 302 involuntary commitment, which if not extended, will on 03/29/2023 at 1911. This patient must remain on safety precautions with a 1-on-1 once extubated/alert and is unable to leave the hospital AMA.
[2023-03-26] MEDS ORDERED: PEPTAMEN INTENSE VHP 1.0 CAL 1,000 ML BAG OG SCH (11:00)
[2023-03-26 11:41] LABS: iSTAT Allen Test Pass; iSTAT Art Bld Gas pCO2 Correct 33 mmHg (35-46); iSTAT Art Bld Gas pH Corrected 7.369 (7.35-7.45); iSTAT Arterial Blood Gas HCO3 19 meg/L (19-24); iSTAT Arterial Blood Gas pCO2 36 mmHg (35-46); iSTAT Arterial Blood Gas pH 7.33 (7.35-7.45); iSTAT Arterial Blood Gas pO2 94 mmHg (80-95); iSTAT Arterial Blood Gas pO2 C 81; iSTAT Carbon Dioxide 20 mmol/L (24-31); iSTAT FiO2 90 %; iSTAT Hematocrit 34 % (42-52); iSTAT Hemoglobin 11.6 g/dl (14.0-18.0); iSTAT Potassium 4.3 mmol/L (3.3-5.0); iSTAT Site L Radial; iSTAT Sodium 137 mmol/L (135-144)
[2023-03-26 11:42] LABS: iSTAT Allen Test Pass; iSTAT Art Bld Gas pCO2 Correct 48 mmHg (35-46); iSTAT Art Bld Gas pH Corrected 7.302 (7.35-7.45); iSTAT Arterial Blood Gas HCO3 24 meg/L (19-24); iSTAT Arterial Blood Gas pCO2 47 mmHg (35-46); iSTAT Arterial Blood Gas pH 7.31 (7.35-7.45); iSTAT Arterial Blood Gas pO2 84 mmHg (80-95); iSTAT Arterial Blood Gas pO2 C 85; iSTAT Carbon Dioxide 25 mmol/L (24-31); iSTAT FiO2 50 %; iSTAT Hematocrit 38 % (42-52); iSTAT Hemoglobin 12.9 g/dl (14.0-18.0); iSTAT Potassium 4.2 mmol/L (3.3-5.0); iSTAT Site L Radial; iSTAT Sodium 137 mmol/L (135-144)
[2023-03-26 11:42] LABS: iSTAT Allen Test Pass; iSTAT Art Bld Gas pCO2 Correct 61 mmHg (35-46); iSTAT Art Bld Gas pH Corrected 7.201 (7.35-7.45); iSTAT Arterial Blood Gas HCO3 24 meg/L (19-24); iSTAT Arterial Blood Gas pCO2 61 mmHg (35-46); iSTAT Arterial Blood Gas pO2 81 mmHg (80-95); iSTAT Arterial Blood Gas pO2 C 80; iSTAT Carbon Dioxide 26 mmol/L (24-31); iSTAT FiO2 50 %; iSTAT Hematocrit 39 % (42-52); iSTAT Hemoglobin 13.3 g/dl (14.0-18.0); iSTAT Potassium 3.4 mmol/L (3.3-5.0); iSTAT Site L Radial; iSTAT Sodium 139 mmol/L (135-144)
[2023-03-26 11:42] LABS: iSTAT Art Bld Gas pCO2 Correct 42 mmHg (35-46); iSTAT Arterial Blood Gas HCO3 24 meg/L (19-24); iSTAT Arterial Blood Gas pCO2 41 mmHg (35-46); iSTAT Arterial Blood Gas pH 7.36 (7.35-7.45); iSTAT Arterial Blood Gas pO2 67 mmHg (80-95); iSTAT Arterial Blood Gas pO2 C 68; iSTAT Carbon Dioxide 25 mmol/L (24-31); iSTAT FiO2 50 %; iSTAT Hematocrit 34 % (42-52); iSTAT Hemoglobin 11.6 g/dl (14.0-18.0); iSTAT Potassium 3.9 mmol/L (3.3-5.0); iSTAT Site Art Line; iSTAT Sodium 139 mmol/L (135-144)
[2023-03-26 11:42] LABS: iSTAT Allen Test Pass; iSTAT Art Bld Gas pCO2 Correct 54 mmHg (35-46); iSTAT Art Bld Gas pH Corrected 7.231 (7.35-7.45); iSTAT Arterial Blood Gas HCO3 23 meg/L (19-24); iSTAT Arterial Blood Gas pCO2 54 mmHg (35-46); iSTAT Arterial Blood Gas pH 7.23 (7.35-7.45); iSTAT Arterial Blood Gas pO2 86 mmHg (80-95); iSTAT Arterial Blood Gas pO2 C 86; iSTAT Carbon Dioxide 24 mmol/L (24-31); iSTAT FiO2 50 %; iSTAT Hematocrit 37 % (42-52); iSTAT Hemoglobin 12.6 g/dl (14.0-18.0); iSTAT Potassium 3.6 mmol/L (3.3-5.0); iSTAT Site R Radial; iSTAT Sodium 138 mmol/L (135-144)
[2023-03-26] MEDS: INSULIN ASPART PER UNIT CHARGE SC SCH ×3 (12:28→23:46)
[2023-03-26] MEDS ORDERED: VECURONIUM BROMIDE 10 MG VIAL IV ONE (13:41)
[2023-03-26] MEDS ORDERED: STAT IV Infusion **Titration per Protocol STA (13:58)
[2023-03-26] MEDS: propofoL 1,000 MG/100 ML VIAL IV SCH ×2 (14:13→19:28)
[2023-03-26] MEDS: MIDAZOLAM HCL 125 MG/250 ML BAG IV SCH ×2 (14:14→21:14)
--- NOTE | 2023-03-26 14:50 | Procedure Note ---
Procedure Note Date of Service March 26, 2023 Note Procedure date: Noted above Procedure: fiberoptic bronchoscopy Pre-procedure indication: Acute hypoxic respiratory failure, aspiration concern for foreign material Post-procedure Diagnosis: same as above Prior to Procedure: Informed Consent: The risks, benefits, indications, potential complications, and alternatives were explained to the the patient's mother and informed consent obtained. Attending Staff: Keny Neville DO Resident/APC: Not applicable Skin Prep: Not applicable Anesthesia: Continuous infusion The identity of the patient was confirmed and a bedside time out was performed. Description of Procedure: Fiberoptic bronchoscopy was performed via endotracheal tube. Bronchioalveolar lavage right middle lobe was performed. Findings included: Hyperemia all airways, no significant purulence nor foreign material was noted. Silverman-colored secretions were suctioned from the right lower and right middle lobes Complications: None Specimens: Bronchial washings sent for culture and Gram stain, fungal elements, AFB stain and culture, cell count differential. Estimated blood loss: Zero Coding CPT Codes Pulmonary/Thoracic - Pulmonary and Thoracic: 87381 Dx bronchoscopy/BAL ([id number]) [facility] [place] Procedure Codes (Charges) Pulmonary/Thoracic Procedure 1: Pulmonary and Thoracic: 07529 Dx bronchoscopy/BAL
--- NOTE | 2023-03-26 15:34 | Hospitalist Progress Note ---
Date of Service March 26, 2023 Assessment & Plan (1) Hypotension: Plan: Acute metabolic encephalopathy Multifactorial: Toxic and metabolic: Drug overdose, alcohol intoxication, Hypoxia Acute respiratory failure with hypoxia and Hypercarbia Suicide Attempt --Head CT: Normal head/brain CT. S/P Intubation Wean off of Atracurium as able Appreciate critical care input Vent management as per ICU team Psychiatry following Aspiration pneumonia --CXR:Bilateral airspace opacities most pronounced on the left S/P bronchoscopy on 03/26/23 Aspiration precautions Currently on Unasyn Follow-up bronchial cultures Hypophosphatemia Hypocalcemia Replete electrolytes as needed Bloody emesis Suspected upper GI bleed H/O NSAID esophagitis DD: Esophagitis, peptic ulcer disease, gastritis etc Monitor H&H and transfuse as needed GI on board Continue IV Protonix Hb stable ADHD Schizoaffective disorder Past suicidal ideation One-to-one observation, suicide precautions Hold all antipsychotic medications for now Cannot leave AMA, [address] Combined respiratory/metabolic acidosis Lactic acidosis Lactic acid levels trended down Received IV bicarbonate ANUEL CPAP intolerance H/O Congenital nasal septal deviation S/P surgery per record DVT Px: SCDs Lovenox SQ Code Status Full code Admission and Anticipated Discharge Date Admission Date: March 25, 2023 Subjective Patient is seen and examined at bedside Remains sedated and intubated Had bronchoscopy earlier today Plan to be weaned off of Nimbex Trickle feeds as per ICU team Bronchial cultures pending Afebrile today Persistent leukocytosis Review of Systems Review of Systems: Unobtainable due to endotracheal tube Physical Exam Physical Exam: Physical Exam: Vitals signs as noted above General Appearance:Obese, no apparent distress,+Intubated Head: normocephalic, Atraumatic Eyes: normal inspection, EOMI Neck: supple, Trachea midline Respiratory/Chest: Normal breath sounds, CTA, No accessory muscle use Cardiovascular: S1, S2, No murmur Abdomen/GI:Soft, Non tender, Bowel sounds present Extremities/Musculoskeletal:normal inspection, no edema Neurologic/Psych:Unable to perform neurological exam Skin: normal color, warm Results & Data Results & Data Vital Signs (Past 12 Hours) Vital Signs Temp Pulse Resp BP Pulse Ox O2 Del Method FiO2 03/26/23 14:58 104 H 26 H 93 40 03/26/23 13:46 37.5 C 143 H 26 H 95 03/26/23 13:46 146/76 H 03/26/23 13:31 162/118 H 03/26/23 13:31 37.4 C 159 H 30 H 95 03/26/23 13:01 37.4 C 120 H 26 H 96 03/26/23 13:01 137/82 03/26/23 13:00 37.4 C 130 H 22 93 03/26/23 12:30 113/79 03/26/23 12:30 37.4 C 114 H 22 03/26/23 12:00 126/88 03/26/23 12:00 37.4 C 120 H 26 H 92 03/26/23 12:00 50 03/26/23 11:40 118/84 03/26/23 11:40 37.4 C 122 H 26 H 93 03/26/23 11:35 37.4 C 118 H 26 H 03/26/23 11:35 109/71 03/26/23 11:35 109/71 03/26/23 11:32 121 H 26 H 94 50 03/26/23 11:32 Mechanical Vent 03/26/23 11:31 37.4 C 125 H 26 H 95 03/26/23 11:31 114/82 03/26/23 11:25 37.3 C 140 H 26 H 92 03/26/23 11:25 153/86 H 03/26/23 11:20 138/87 03/26/23 11:20 37.3 C 139 H 26 H 92 03/26/23 11:15 37.3 C 121 H 26 H 03/26/23 11:15 116/68 03/26/23 11:00 123/77 03/26/23 11:00 37.3 C 124 H 26 H 03/26/23 10:30 37.3 C 124 H 26 H 94 03/26/23 10:01 37.3 C 142 H 26 H 94 03/26/23 10:01 136/78 03/26/23 10:00 37.3 C 129 H 26 H 03/26/23 09:39 Mechanical Vent 50 03/26/23 09:30 37.3 C 115 H 26 H 93 03/26/23 09:01 37.2 C 135 H 26 H 94 03/26/23 09:01 147/85 H 03/26/23 09:00 37.2 C 146 H 26 H 03/26/23 08:30 37.2 C 148 H 26 H 94 03/26/23 08:00 37.2 C 135 H 26 H 88 L 03/26/23 08:00 164/88 H 03/26/23 08:00 50 03/26/23 07:09 154 H 26 H 93 50 03/26/23 07:00 145/97 H 03/26/23 07:00 37.0 C 144 H 26 H 90 03/26/23 06:15 26 H 50 03/26/23 06:00 36.9 C 115 H 26 H 81 L 03/26/23 05:01 168/83 H 03/26/23 05:01 36.7 C 140 H 20 92 03/26/23 05:00 36.7 C 146 H 20 90 03/26/23 04:01 36.5 C 147 H 20 92 03/26/23 04:01 164/110 H 03/26/23 04:00 36.5 C 139 H 20 92 03/26/23 04:00 50 Laboratory Results Short CBC 03/25/23 03/26/23 Range/Units 17:09 03:40 WBC 31.00 H* (4.8-10.8) K/ul Hgb 10.9 L 11.7 L (14.0-18.0) g/dl Hct 33.8 L 37.3 L (42.0-52.0) % Plt Count 546 H (130-400) K/uL BMP 03/26/23 03:40 Sodium 137 Potassium 3.3 L D Chloride 104 Carbon Dioxide 25 BUN 11 Creatinine 0.93 Glucose 164 H Calcium 8.4 L Liver Function 03/26/23 Range/Units 03:40 Total Bilirubin 0.4 (0.2-1.0) mg/dl AST 37 (13-39) U/L ALT 51 (7-52) U/L Alkaline Phosphatase 59 (34-104) U/L Albumin 3.6 (3.4-5.0) gm/dl
[2023-03-26] MEDS: TUBE FEEDING WATER FLUSH GT SCH ×4 (16:42→23:47)
[2023-03-26] MEDS: ICU ELECTROLYTE REPLACEMENT PROTOCOL SCH (16:43)
[2023-03-26 19:51] LABS: Lymphocyte Body Fluid Man 6 %
[2023-03-26 20:41] LABS: Eosinophil Body Fluid Man 74 %; Fluid Mono/Macrophage 6 %; Neutrophil Body Fluid Man 14 %
[2023-03-26] MEDS: PANTOprazole 40 MG in SYRINGE 0 ML IV SCH (21:13)
[2023-03-27] MEDS: fentaNYL citrate 2,500 MCG/250 ML BAG IV SCH ×4 (01:52→19:02)
[2023-03-27] MEDS: propofoL 1,000 MG/100 ML VIAL IV SCH ×10 (01:52→20:33)
[2023-03-27 04:19] LABS: Anion Gap 4 (3-11); BUN Creatinine Ratio 17.6 (10-20); Blood Urea Nitrogen 18 mg/dl (6-23); Calcium 8.2 mg/dl (8.6-10.3); Carbon Dioxide 28 mmol/L (21-32); Chloride 104 mmol/L (98-107); Creatinine Clr Calc Pharmacy 159.8 ml/min; Est GFR (African American) 117.9 ml/min; Est GFR (Non-African American) 101.7 ml/min; Glucose 81 mg/dl (70-99(Fasting)); Potassium 3.5 mmol/L (3.5-5.1); Sodium 136 mmol/L (136-145)
[2023-03-27 04:22] LABS: Basophils # (auto) 0.03 K/uL (0.00-0.20); Basophils % (auto) 0.2 %; Eosinophils # (auto) 0.14 K/uL (0.00-0.50); Hematocrit (blood only) 29.8 % (42.0-52.0); Hemoglobin 9.6 g/dl (14.0-18.0); Immature Granulocytes # (auto) 0.06 K/uL (0.01-0.20); Immature Granulocytes % (auto) 0.4 %; Lymphocytes # (auto) 3.21 K/uL (1.20-3.40); Lymphocytes % (auto) 24.1 %; Mean Corpuscular Hemoglobin 25.6 pg (25.0-34.0); Mean Corpuscular Hgb Conc 32.2 g/dL (32.0-36.0); Mean Corpuscular Volume 79.5 fL (80.0-100.0); Monocytes # (auto) 1.13 K/uL (0.11-0.59); Monocytes % (auto) 8.5 %; Neutrophils # (auto) 8.77 K/uL (1.40-6.50); Neutrophils % (auto) 65.8 %; Platelet Count 359 K/uL (130-400); RDW Coefficient of Variation 17.6 % (11.5-14.5); RDW Standard Deviation 49.1 fL (36.4-46.3); Red Blood Count 3.75 M/uL (4.70-6.10); White Blood Count 13.34 K/ul (4.8-10.8)
[2023-03-27 04:38] LABS: Magnesium 2.2 mg/dl (1.7-2.4)
[2023-03-27] MEDS ORDERED: POTASSIUM PHOS 3 MMOL/1 ML INFUSION IV STA ×2 (04:45→08:22)
[2023-03-27 04:48] LABS: Phosphorus < 1.0 mg/dl (2.5-4.9)
[2023-03-27] MEDS ORDERED: POTASSIUM PHOSPHATE 30 MMOL in SODIUM CHLORIDE 0.9% 500 ML IV ONE (05:00)
[2023-03-27] MEDS: PLASMA-LYTE A 1,000 ML IV SCH ×3 (05:14→20:36)
[2023-03-27] MEDS: TUBE FEEDING WATER FLUSH GT SCH ×5 (05:15→20:33)
[2023-03-27] MEDS: MIDAZOLAM HCL 125 MG/250 ML BAG IV SCH ×5 (05:52→20:35)
[2023-03-27] MEDS: ICU ELECTROLYTE REPLACEMENT PROTOCOL SCH ×2 (05:53→18:18)
[2023-03-27] MEDS: ARTIFICIAL TEARS OP OINT 3.5 GM TUBE OP SCH ×6 (05:53→20:35)
[2023-03-27] MEDS: UNASYN 3000MG / NS q6h IV SCH ×3 (05:53→18:18)
[2023-03-27] MEDS: INSULIN ASPART PER UNIT CHARGE SC SCH ×3 (05:54→18:23)
[2023-03-27 07:42] LABS: iSTAT Allen Test Pass; iSTAT Art Bld Gas pCO2 Correct 31 mmHg (35-46); iSTAT Art Bld Gas pH Corrected 7.532 (7.35-7.45); iSTAT Arterial Blood Gas HCO3 26 meg/L (19-24); iSTAT Arterial Blood Gas pCO2 31 mmHg (35-46); iSTAT Arterial Blood Gas pH 7.53 (7.35-7.45); iSTAT Arterial Blood Gas pO2 57 mmHg (80-95); iSTAT Arterial Blood Gas pO2 C 57; iSTAT Carbon Dioxide 27 mmol/L (24-31); iSTAT FiO2 30 %; iSTAT Hematocrit 28 % (42-52); iSTAT Hemoglobin 9.5 g/dl (14.0-18.0); iSTAT Potassium 3.5 mmol/L (3.3-5.0); iSTAT Site L Radial; iSTAT Sodium 136 mmol/L (135-144)
--- NOTE | 2023-03-27 07:58 | Critical Care Progress Note ---
Date of Service March 27, 2023 Assessment & Plan (1) Overdose by ingestion: (2) Alcohol intoxication: (3) Respiratory failure: (4) Rheumatoid arthritis: (5) Schizoaffective disorder: Plan Reason Critically Ill: 27 YOM admitted to ICU post intentional overdose via ingestion, now intubated and mechanically ventilated. Ingestion of Ativan and ETOH Neuro: Acute encephalopathy upon presentation in ED -Suspect toxic/metabolic: Multifactorial -Cannot exclude hypoxic injury at this time: Concerning clinical history of agonal respirations when found in inf[place] intubation -Excluding spontaneous breathing trial today as patient is unsafe given significant prolonged hypoxemia with minimal interventions -Acute alcohol intoxication on presentation: Resolved Sedation with Versed and fentanyl and propofol Suicide attempt -Suicide note left -Records indicate Ativan may have been taken with alcohol Schizoaffective disorder Major depressive episode -302 for suicide attempt when medically cleared, reviewed psych liaison notes -Lamictal level: pending -Discussed with psychiatry: Restarting Lamictal: Pill fragments were noted in aspiration doubtful patient had significant load -Caplyta nonformulary holding at present time Holding estradiol, finasteride, gabapentin, modafinil, trazodone Resp: Severe acute respiratory distress syndrome secondary to aspiration of gastric contents into the airway: P to F ratio 140 -High PEEP low FiO2 tables: Box 6 -Pronation therapy finsihed yesterday Aspiration into bronchial tree -Bronchoscopy performed 03/26 CV: Echo report from October 2022 reviewed -This appears to been obtained during an admission for upper GI bleeding which was felt to be secondary to esophagitis from NSAID use CPR performed in field -Patient did not have elevated troponins and EKG was normal sinus rhythm and has not had significant hemodynamic instability Fluids/Renal: Lactic acid acidosis: Improved Mild hypokalemia: resolved - electrolyte protocol Hypophosphatemia: Sodium and potassium phosphate replacement ID: Coverage for aspiration pneumonia -Unasyn day #3 -BAL results pending GI/Nutrition: Increase tube feeds to goal. -History of esophagitis: October 2022 -Gastroenterology signing off Mild transaminitis: Recheck LFTs -Acute hepatitis panel: Negative for hepatitis A, B and C Heme: Anemia -Improved compared to October labs during which patient had acute blood loss anemia secondary to esophagitis Leukocytosis: Acute phase reactant DVT prophylaxis: Lovenox and SCDs Endocrine: ICU hyperglycemia protocol TSH within normal limits on February 2023 Vascular access: Left IJ triple-lumen catheter, left arterial line Code Status: Full code Disposition: ICU Admission and Anticipated Discharge Date Admission Date: March 25, 2023 Supervising Physician Co-Signing Physician Notes I have personally spent 40 minutes of critical care time in the direct management of this patient. This is a life/limb threatening event. This includes time spent evaluating patient, direct bedside care, chart review, placing orders, interpretation of diagnostic studies, discussion with consultants, patient, and/or family members regarding treatment decisions, as well as other required patient management activities. This time is exclusive of all separately billable procedures, and teaching time and separate from and in addition to any other critical care service time. Subjective Precipitous and prolonged hypoxia with rolling and bathing. Otherwise no significant overnight events mild decrease in ventilator settings Review of Systems Review of Systems: Unobtainable due to endotracheal tube Physical Exam Physical Exam: General: Sedated. nontoxic. Skin: Warm, dry, Head: Atraumatic Ears, nose, mouth and throat: airway obscured by endotracheal tube Cardiovascular: Normal peripheral perfusion Respiratory: Ventilator settings reviewed Gastrointestinal: Non distended Musculoskeletal: No deformity Results & Data Results & Data Vital Signs (Past 12 Hours) Vital Signs Temp Pulse Pulse Resp BP BP Pulse Ox 03/27/23 07:15 87 26 H 94 03/27/23 07:00 37.1 C 86 26 H 105/64 94 03/27/23 06:00 95/48 L 03/27/23 06:00 37.1 C 87 26 H 90 03/27/23 05:31 88/47 L 03/27/23 05:31 37.1 C 89 23 03/27/23 05:10 100/50 L 03/27/23 05:10 90 23 03/27/23 05:00 37.1 C 90 26 H 92 03/27/23 04:30 109/64 03/27/23 04:30 37.1 C 85 26 H 92 03/27/23 04:00 37.1 C 93 H 26 H 92 03/27/23 04:00 106/62 03/27/23 04:00 03/27/23 03:30 37.2 C 85 26 H 92 03/27/23 03:30 99/63 L 03/27/23 03:14 89 26 H 93 03/27/23 03:00 102/61 03/27/23 03:00 37.2 C 85 26 H 92 03/27/23 02:30 37.2 C 87 26 H 92 03/27/23 02:30 105/62 03/27/23 02:00 104/55 L 03/27/23 02:00 37.2 C 88 26 H 92 03/27/23 01:00 37.3 C 90 26 H 91 03/27/23 01:00 97/65 L 03/27/23 00:00 37.3 C 90 26 H 03/27/23 00:00 03/26/23 23:30 37.4 C 92 H 26 H 92 03/26/23 23:30 98/53 L 03/26/23 23:00 90 26 H 92 03/26/23 23:00 97/63 L 03/26/23 23:00 37.4 C 91 H 26 H 94 03/26/23 22:30 37.4 C 91 H 26 H 94 03/26/23 22:30 94/55 L 03/26/23 22:00 37.4 C 93 H 26 H 94 03/26/23 22:00 89/55 L 03/26/23 21:30 90/58 L 03/26/23 21:30 37.4 C 93 H 26 H 03/26/23 21:00 37.4 C 96 H 26 H 94 03/26/23 21:00 101/51 L 03/26/23 20:14 94 H 28 H 95 03/26/23 20:00 37.4 C 96 H 26 H 94 03/26/23 20:00 91/54 L 03/26/23 20:00 03/26/23 20:00 O2 Del Method FiO2 03/27/23 07:15 40 03/27/23 07:00 Mechanical Vent 30 03/27/23 06:00 03/27/23 06:00 03/27/23 05:31 03/27/23 05:31 03/27/23 05:10 03/27/23 05:10 03/27/23 05:00 03/27/23 04:30 03/27/23 04:30 03/27/23 04:00 03/27/23 04:00 03/27/23 04:00 30 03/27/23 03:30 03/27/23 03:30 03/27/23 03:14 30 03/27/23 03:00 03/27/23 03:00 03/27/23 02:30 03/27/23 02:30 03/27/23 02:00 03/27/23 02:00 03/27/23 01:00 03/27/23 01:00 03/27/23 00:00 03/27/23 00:00 30 03/26/23 23:30 03/26/23 23:30 03/26/23 23:00 30 03/26/23 23:00 03/26/23 23:00 03/26/23 22:30 03/26/23 22:30 03/26/23 22:00 03/26/23 22:00 03/26/23 21:30 03/26/23 21:30 03/26/23 21:00 03/26/23 21:00 03/26/23 20:14 35 03/26/23 20:00 03/26/23 20:00 03/26/23 20:00 Mechanical Vent 03/26/23 20:00 35 Critical Care Results & Data Vital Signs (Past 12 Hours) Vital Signs Temp Pulse Pulse Resp BP BP Pulse Ox 03/27/23 07:15 87 26 H 94 03/27/23 07:00 37.1 C 86 26 H 105/64 94 03/27/23 06:00 95/48 L 03/27/23 06:00 37.1 C 87 26 H 90 03/27/23 05:31 88/47 L 03/27/23 05:31 37.1 C 89 23 03/27/23 05:10 100/50 L 03/27/23 05:10 90 23 03/27/23 05:00 37.1 C 90 26 H 92 03/27/23 04:30 109/64 03/27/23 04:30 37.1 C 85 26 H 92 03/27/23 04:00 37.1 C 93 H 26 H 92 03/27/23 04:00 106/62 03/27/23 04:00 03/27/23 03:30 37.2 C 85 26 H 92 03/27/23 03:30 99/63 L 03/27/23 03:14 89 26 H 93 03/27/23 03:00 102/61 03/27/23 03:00 37.2 C 85 26 H 92 03/27/23 02:30 37.2 C 87 26 H 92 03/27/23 02:30 105/62 03/27/23 02:00 104/55 L 03/27/23 02:00 37.2 C 88 26 H 92 03/27/23 01:00 37.3 C 90 26 H 91 03/27/23 01:00 97/65 L 03/27/23 00:00 37.3 C 90 26 H 03/27/23 00:00 03/26/23 23:30 37.4 C 92 H 26 H 92 03/26/23 23:30 98/53 L 03/26/23 23:00 90 26 H 92 03/26/23 23:00 97/63 L 03/26/23 23:00 37.4 C 91 H 26 H 94 03/26/23 22:30 37.4 C 91 H 26 H 94 03/26/23 22:30 94/55 L 03/26/23 22:00 37.4 C 93 H 26 H 94 03/26/23 22:00 89/55 L 03/26/23 21:30 90/58 L 03/26/23 21:30 37.4 C 93 H 26 H 03/26/23 21:00 37.4 C 96 H 26 H 94 03/26/23 21:00 101/51 L 03/26/23 20:14 94 H 28 H 95 03/26/23 20:00 37.4 C 96 H 26 H 94 03/26/23 20:00 91/54 L 03/26/23 20:00 03/26/23 20:00 O2 Del Method FiO2 03/27/23 07:15 40 03/27/23 07:00 Mechanical Vent 30 03/27/23 06:00 03/27/23 06:00 03/27/23 05:31 03/27/23 05:31 03/27/23 05:10 03/27/23 05:10 03/27/23 05:00 03/27/23 04:30 03/27/23 04:30 03/27/23 04:00 03/27/23 04:00 03/27/23 04:00 30 03/27/23 03:30 03/27/23 03:30 03/27/23 03:14 30 03/27/23 03:00 03/27/23 03:00 03/27/23 02:30 03/27/23 02:30 03/27/23 02:00 03/27/23 02:00 03/27/23 01:00 03/27/23 01:00 03/27/23 00:00 03/27/23 00:00 30 03/26/23 23:30 03/26/23 23:30 03/26/23 23:00 30 03/26/23 23:00 03/26/23 23:00 03/26/23 22:30 03/26/23 22:30 03/26/23 22:00 03/26/23 22:00 03/26/23 21:30 03/26/23 21:30 03/26/23 21:00 03/26/23 21:00 03/26/23 20:14 35 03/26/23 20:00 03/26/23 20:00 03/26/23 20:00 Mechanical Vent 03/26/23 20:00 35 Lab & Micro Results (Past 24 Hours) RBC 3.75 M/uL (4.70-6.10) L 03/27/23 WBC 13.34 K/ul (4.8-10.8) H 03/27/23 Hgb 9.6 g/dl (14.0-18.0) L 03/27/23 Hct 29.8 % (42.0-52.0) L 03/27/23 MCV 79.5 fL (80.0-100.0) L 03/27/23 MCH 25.6 pg (25.0-34.0) 03/27/23 MCHC 32.2 g/dL (32.0-36.0) 03/27/23 RDW Standard Deviation 49.1 fL (36.4-46.3) H 03/27/23 RDW Coefficient of Variation 17.6 % (11.5-14.5) H 03/27/23 Plt Count 359 K/uL (130-400) 03/27/23 MPV 10.0 fL (9.4-12.4) 03/27/23 Neutrophils (%) (Auto) 65.8 % 03/27/23 Lymphocytes (%) (Auto) 24.1 % 03/27/23 Monocytes # (Auto) 1.13 K/uL (0.11-0.59) H 03/27/23 Eosinophils # (Auto) 0.14 K/uL (0.00-0.50) 03/27/23 Immature Granulocyte % (Auto) 0.4 % 03/27/23 Neutrophils # (Auto) 8.77 K/uL (1.40-6.50) H 03/27/23 Lymphocytes # (Auto) 3.21 K/uL (1.20-3.40) 03/27/23 Monocytes # (Auto) 1.13 K/uL (0.11-0.59) H 03/27/23 Eosinophils # (Auto) 0.14 K/uL (0.00-0.50) 03/27/23 Basophils # (Auto) 0.03 K/uL (0.00-0.20) 03/27/23 Immature Granulocyte # (Auto) 0.06 K/uL (0.01-0.20) 3 Na 136 mmol/L (136-145) 03/27/23 K 3.5 mmol/L (3.5-5.1) 03/27/23 Cl 104 mmol/L (98-107) 03/27/23 CO2 28 mmol/L (21-32) 03/27/23 Anion Gap 4 (3-11) 03/27/23 BUN 18 mg/dl (6-23) 03/27/23 Creatinine 1.02 mg/dl (0.6-1.4) 03/27/23 Estimated GFR ( Amer) 117.9 ml/min 03/27/23 Estimated GFR (Non-Af Amer) 101.7 ml/min 03/27/23 BUN/Creatinine Ratio 17.6 (10-20) 03/27/23 Glu 81 mg/dl (70-99(Fasting)) 03/27/23 Ca 8.2 mg/dl (8.6-10.3) L 03/27/23 Phosphorus Level < 1.0 mg/dl (2.5-4.9) L* 03/27/23 Mg 2.2 mg/dl (1.7-2.4) 03/27/23 03:42 Calcium Level 8.2 mg/dl (8.6-10.3) L 03/27/23 03:42 Morris Test Pass 03/27/23 07:08 Microbiology 03/26/23 Unknown Fungal Smear - Final Ba Lavage,Right Middle Lobe 03/26/23 Unknown Gram Stain - Final Bronch Wash,Right Middle Lobe I & O Totals 24 Hours 03/26/23 03/27/23 03/28/23 06:59 06:59 05:59 Intake Total 4572.356 / 4572.356 4262.243 / 4262.243 Output Total 3450 / 3450 1650 / 1650 Balance 1122.356 / 9614.212 4638.243 / 2612.243 Cumulative 03/24/23 22:44 thru 03/27/23 06:49 Intake Total 97680.941 Output Total 8040 Balance 4257.941 RT Ventilator Mngmt (Last Documented) Ventilator Ordered Settings Ventilator Support Mode Assist Control 03/27/23 07:15 Respiratory Rate 26 03/27/23 07:15 Ventilator Tidal Volume 500 03/27/23 07:15 Setting Minute Ventilation 13 03/27/23 07:15 Positive End Expiratory 16 03/27/23 07:15 Pressure Fraction of Inspired Oxygen 40 03/27/23 07:15 Peak Inspiratory Flow 13 03/25/23 01:44 Machine Comment Changes made per dr. sorenson 03/25/23 10:36 Ventilator - PT Measurements Respiratory Rate 26 Exhaled Tidal Volume 500 Minute Ventilation 13 Peak Inspiratory Airway 32 Pressure Plateau Pressure 21 Respiratory Cycle Inspiratory: 1:1.3 Expiratory Ratio Inspiratory Phase Time 0.9 End-Tidal CO2 29 Static Lung Compliance 100.00 Dynamic Lung Compliance 31.25 Normal Static Lung Compliance 47.00 Patient Measurements Comment fi02 dropped to 35% spo2 95% Coding Level of Care Code 69647 CRITICAL CARE 1ST 30-74M Diagnoses Overdose by ingestion T50.901A Alcohol intoxication F10.921 Complication of substance-induced condition: with delirium Respiratory failure J96.02 Chronicity: acute Respiratory failure complication: hypercapnia Rheumatoid arthritis, involving unspecified site, unspecified whether rheumatoid factor present M06.9 Rheumatoid arthritis location: unspecified site Rheumatoid factor presence: unspecified presence Schizoaffective disorder F25.0 Schizoaffective disorder type: bipolar (2) Alcohol intoxication Complication of substance-induced condition: with delirium Qualified Code(s): F10.921 - Alcohol use, unspecified with intoxication delirium (3) Respiratory failure Chronicity: acute Respiratory failure complication: hypercapnia Qualified Code(s): J96.02 - Acute respiratory failure with hypercapnia (4) Rheumatoid arthritis Rheumatoid arthritis location: unspecified site Rheumatoid factor presence: unspecified presence Qualified Code(s): M06.9 - Rheumatoid arthritis, unspecified (5) Schizoaffective disorder Schizoaffective disorder type: bipolar Qualified Code(s): F25.0 - Schizo affective disorder, bipolar type
[2023-03-27] MEDS ORDERED: SODIUM PHOSPHATE 3 MMOL/1 ML INFUSION IV STA (08:23)
[2023-03-27] MEDS: ENOXAPARIN INJ 40 MG/0.4 ML SYR SQ SCH ×2 (08:24→20:34)
[2023-03-27] MEDS: PANTOprazole 40 MG in SYRINGE 0 ML IV SCH ×2 (08:25→20:35)
[2023-03-27] MEDS ORDERED: POTASSIUM PHOSPHATE 15 MMOL in SODIUM CHLORIDE 0.9% 250 ML IV ONE (08:45)
[2023-03-27 09:32] LABS: Alanine Aminotransferase 30 U/L (7-52); Alkaline Phosphatase 41 U/L (34-104); Aspartate Aminotransferase 25 U/L (13-39); Bilirubin Direct 0.1 mg/dl (0-0.2); Bilirubin,Total 0.4 mg/dl (0.2-1.0); Iron 26 mcg/dl (35-175); Total Protein 5.7 gm/dl (6.0-8.3); Transferrin 190 mg/dl (200-360)
[2023-03-27 09:57] LABS: Ferritin 171.9 ng/ml (8-388)
--- NOTE | 2023-03-27 10:56 | Communication Note ---
Date of Service: March 27, [address] Neville. Patient to remain intubated for at least 24 more hours. Caplyta is non formulary and would continue to hold psych meds following OD while AMS/intubated. If agitated upon extubation would likely give IM Zyprexa. If able to receive lamictal 50 mg in ICU would be ideal given already missed 3 doses and otherwise will need retitrate if continues. Liaison has spoken with mother re: HIPAA as patient unable to sign release.
[2023-03-27] MEDS: PROPOFOL BOLUS FROM BAG IV PRN (12:20)
[2023-03-27] MEDS: fentaNYL BOLUS from BAG IV PRN (12:20)
[2023-03-27] MEDS: MIDAZOLAM BOLUS FROM BAG IV PRN ×2 (12:20→12:47)
[2023-03-27] MEDS ORDERED: SODIUM PHOSPHATE 12 MMOL in SODIUM CHLORIDE 0.9% 250 ML IV ONE (14:00)
--- NOTE | 2023-03-27 17:16 | Hospitalist Progress Note ---
Date of Service March 27, 2023 Assessment & Plan (1) Hypotension: Plan: Acute metabolic encephalopathy Multifactorial: Toxic and metabolic: Drug overdose, alcohol intoxication, Hypoxia Acute respiratory failure with hypoxia and Hypercarbia Suicide Attempt --Head CT: Normal head/brain CT. S/P Intubation Atracurium discontinued Appreciate critical care input Vent management as per ICU team Psychiatry following Continue current management Tolerating tube feeds Aspiration pneumonia --CXR:Bilateral airspace opacities most pronounced on the left S/P bronchoscopy on 03/26/23 Aspiration precautions Currently on Unasyn Bronchial cultures pending Leukocytosis trending down Hypophosphatemia Hypocalcemia Replete electrolytes as needed Bloody emesis Suspected upper GI bleed H/O NSAID esophagitis DD: Esophagitis, peptic ulcer disease, gastritis etc Monitor H&H and transfuse as needed GI on board Continue IV Protonix Hb drop likely dilational ADHD Schizoaffective disorder Past suicidal ideation One-to-one observation, suicide precautions Hold all antipsychotic medications for now Cannot leave AMA, [address] Combined respiratory/metabolic acidosis Lactic acidosis Lactic acid levels trended down Received IV bicarbonate ANUEL CPAP intolerance H/O Congenital nasal septal deviation S/P surgery per record DVT Px: SCDs Lovenox SQ Code Status Full code Admission and Anticipated Discharge Date Admission Date: March 25, 2023 Subjective Patient is seen and examined at bedside Sedated with midazolam, propofol Hypophosphatemia noted on labs Remains intubated Tolerating tube feeds Leukocytosis trending down Bronchial cultures pending Review of Systems Review of Systems: Unobtainable due to endotracheal tube Physical Exam Physical Exam: Physical Exam: Vitals signs as noted above General Appearance:Obese, no apparent distress,+Intubated Head: normocephalic, Atraumatic Eyes: normal inspection, EOMI Neck: supple, Trachea midline Respiratory/Chest: Normal breath sounds, CTA, No accessory muscle use Cardiovascular: S1, S2, No murmur Abdomen/GI:Soft, Non tender, Bowel sounds present Extremities/Musculoskeletal:normal inspection, no edema Neurologic/Psych:Unable to perform neurological exam Skin: normal color, warm Results & Data Results & Data Vital Signs (Past 12 Hours) Vital Signs Temp Pulse Pulse Resp BP BP Pulse Ox 03/27/23 16:00 03/27/23 15:30 37.3 C 86 18 96 03/27/23 15:00 100/59 L 03/27/23 15:00 37.3 C 86 18 95 03/27/23 14:30 37.3 C 88 18 95 03/27/23 14:30 106/57 L 03/27/23 14:05 87 18 96 03/27/23 14:01 37.3 C 88 16 95 03/27/23 14:01 105/62 03/27/23 14:00 37.3 C 86 18 96 03/27/23 13:30 117/61 03/27/23 13:30 37.3 C 89 18 96 03/27/23 13:00 108/62 03/27/23 13:00 37.3 C 97 H 18 94 03/27/23 12:55 03/27/23 12:31 108/73 03/27/23 12:31 37.3 C 106 H 18 90 03/27/23 12:30 37.3 C 102 H 18 90 03/27/23 12:01 37.2 C 89 16 96 03/27/23 12:01 121/69 03/27/23 12:00 37.2 C 90 18 94 03/27/23 12:00 03/27/23 11:30 121/69 03/27/23 11:30 37.2 C 87 18 97 03/27/23 11:01 37.2 C 83 16 95 03/27/23 11:01 105/54 L 03/27/23 11:00 37.2 C 87 18 96 03/27/23 10:47 83 18 97 03/27/23 10:30 99/52 L 03/27/23 10:30 37.2 C 84 18 96 03/27/23 10:01 37.1 C 88 16 94 03/27/23 10:01 96/58 L 03/27/23 10:00 37.1 C 84 18 95 03/27/23 09:31 37.1 C 86 16 95 03/27/23 09:31 99/56 L 03/27/23 09:30 37.1 C 82 18 95 03/27/23 09:01 37.1 C 86 16 94 03/27/23 09:01 102/55 L 03/27/23 09:00 37.1 C 87 18 96 03/27/23 08:31 96/52 L 03/27/23 08:31 37.1 C 85 16 94 11/04/23 08:30 37.1 C 87 18 95 03/27/23 08:02 03/27/23 08:01 37.1 C 85 16 95 03/27/23 08:01 99/63 L 03/27/23 08:00 37.1 C 88 18 95 03/27/23 08:00 03/27/23 08:00 03/27/23 07:31 37.1 C 86 19 93 03/27/23 07:31 105/64 03/27/23 07:30 37.1 C 88 26 H 93 03/27/23 07:15 87 26 H 94 03/27/23 07:00 37.1 C 85 26 H 92 03/27/23 07:00 101/60 03/27/23 07:00 37.1 C 86 26 H 105/64 94 03/27/23 06:31 37.1 C 81 23 92 03/27/23 06:31 94/50 L 03/27/23 06:30 37.1 C 84 26 H 92 03/27/23 06:00 95/48 L 03/27/23 06:00 37.1 C 87 26 H 90 03/27/23 05:31 88/47 L 03/27/23 05:31 37.1 C 89 23 O2 Del Method FiO2 03/27/23 16:00 50 03/27/23 15:30 03/27/23 15:00 03/27/23 15:00 03/27/23 14:30 03/27/23 14:30 03/27/23 14:05 60 03/27/23 14:01 03/27/23 14:01 03/27/23 14:00 03/27/23 13:30 03/27/23 13:30 03/27/23 13:00 03/27/23 13:00 03/27/23 12:55 60 03/27/23 12:31 03/27/23 12:31 03/27/23 12:30 03/27/23 12:01 03/27/23 12:01 03/27/23 12:00 03/27/23 12:00 40 03/27/23 11:30 03/27/23 11:30 03/27/23 11:01 03/27/23 11:01 03/27/23 11:00 03/27/23 10:47 40 03/27/23 10:30 03/27/23 10:30 03/27/23 10:01 03/27/23 10:01 03/27/23 10:00 03/27/23 09:31 03/27/23 09:31 03/27/23 09:30 03/27/23 09:01 03/27/23 09:01 03/27/23 09:00 03/27/23 08:31 03/27/23 08:31 03/27/23 08:30 03/27/23 08:02 Mechanical Vent 03/27/23 08:01 03/27/23 08:01 03/27/23 08:00 03/27/23 08:00 40 03/27/23 08:00 Mechanical Vent, Non-rebreather 40 03/27/23 07:31 03/27/23 07:31 03/27/23 07:30 03/27/23 07:15 40 03/27/23 07:00 03/27/23 07:00 03/27/23 07:00 Mechanical Vent 30 03/27/23 06:31 03/27/23 06:31 03/27/23 06:30 03/27/23 06:00 03/27/23 06:00 03/27/23 05:31 03/27/23 05:31 Laboratory Results Short CBC 03/27/23 Range/Units 03:42 WBC 13.34 H (4.8-10.8) K/ul Hgb 9.6 L (14.0-18.0) g/dl Hct 29.8 L (42.0-52.0) % Plt Count 359 (130-400) K/uL BMP 03/27/23 03:42 Sodium 136 Potassium 3.5 Chloride 104 Carbon Dioxide 28 BUN 18 Creatinine 1.02 Glucose 81 Calcium 8.2 L Liver Function 03/27/23 Range/Units 03:42 Total Bilirubin 0.4 (0.2-1.0) mg/dl Direct Bilirubin 0.1 (0-0.2) mg/dl AST 25 (13-39) U/L ALT 30 (7-52) U/L Alkaline Phosphatase 41 (34-104) U/L Albumin 3.0 L (3.4-5.0) gm/dl
--- NOTE | 2023-03-27 18:33 | XRay Report ---
XR chest 1V portable CLINICAL HISTORY: Resp failure TECHNIQUE: Single frontal radiograph of the chest was obtained. Comparison: Comparison is made to chest radiograph 03/26/2023 FINDINGS: Lines and tubes are stable. The cardiomediastinal silhouette is normal. Bibasilar airspace opacities are unchanged. Pleural effusions cannot be excluded. IMPRESSION: Bibasilar airspace opacities are unchanged from prior exam. Satisfactory appearance of lines and tube s. ACT 112: Negative or not required by law. Electronically signed by: Braulio Menjivar M.D. 03/27/2023 6:31 PM
[2023-03-28] MEDS: TUBE FEEDING WATER FLUSH GT SCH ×7 (00:29→23:17)
[2023-03-28] MEDS: UNASYN 3000MG / NS q6h IV SCH ×5 (00:29→23:16)
[2023-03-28] MEDS: propofoL 1,000 MG/100 ML VIAL IV SCH ×7 (00:31→21:46)
[2023-03-28] MEDS: INSULIN ASPART PER UNIT CHARGE SC SCH ×4 (01:30→18:21)
[2023-03-28] MEDS: ARTIFICIAL TEARS OP OINT 3.5 GM TUBE OP SCH ×6 (01:31→20:05)
[2023-03-28 04:21] LABS: Basophils # (auto) 0.07 K/uL (0.00-0.20); Basophils % (auto) 0.8 %; Eosinophils # (auto) 0.27 K/uL (0.00-0.50); Eosinophils % (auto) 2.9 %; Hemoglobin 8.9 g/dl (14.0-18.0); Immature Granulocytes # (auto) 0.05 K/uL (0.01-0.20); Immature Granulocytes % (auto) 0.5 %; Lymphocytes # (auto) 1.79 K/uL (1.20-3.40); Lymphocytes % (auto) 19.4 %; Mean Corpuscular Hemoglobin 25.5 pg (25.0-34.0); Mean Corpuscular Hgb Conc 31.8 g/dL (32.0-36.0); Mean Corpuscular Volume 80.2 fL (80.0-100.0); Mean Platelet Volume 9.7 fL (9.4-12.4); Monocytes % (auto) 7.6 %; Neutrophils # (auto) 6.36 K/uL (1.40-6.50); Neutrophils % (auto) 68.8 %; Platelet Count 306 K/uL (130-400); RDW Coefficient of Variation 18.7 % (11.5-14.5); RDW Standard Deviation 52.7 fL (36.4-46.3); Red Blood Count 3.49 M/uL (4.70-6.10); Reticulocyte % 1.7 % (0.5-2.0); Reticulocytes # 0.06 10^6/uL (0.02-0.10); White Blood Count 9.24 K/ul (4.8-10.8)
[2023-03-28 04:36] LABS: BUN Creatinine Ratio 16.3 (10-20); Calcium 7.9 mg/dl (8.6-10.3); Creatinine Clr Calc Pharmacy 205.4 ml/min; Est GFR (African American) 143.9 ml/min; Est GFR (Non-African American) 124.2 ml/min; Magnesium 1.9 mg/dl (1.7-2.4); Phosphorus 3.2 mg/dl (2.5-4.9); Potassium 3.4 mmol/L (3.5-5.1)
[2023-03-28] MEDS: fentaNYL citrate 2,500 MCG/250 ML BAG IV SCH ×2 (05:21→19:58)
[2023-03-28] MEDS: PLASMA-LYTE A 1,000 ML IV SCH ×2 (05:29→16:59)
[2023-03-28] MEDS ORDERED: POTASSIUM CHLORIDE 20 MEQ/15 ML UDC PO STA (05:34)
[2023-03-28] MEDS ORDERED: MAGNESIUM SULFATE / D5W 1 GM/100 ML BAG IV ONE (05:45)
[2023-03-28] MEDS: ICU ELECTROLYTE REPLACEMENT PROTOCOL SCH ×2 (05:47→18:21)
--- NOTE | 2023-03-28 07:33 | Critical Care Progress Note ---
Date of Service March 28, 2023 Assessment & Plan (1) Overdose by ingestion: (2) Alcohol intoxication: (3) Respiratory failure: (4) Rheumatoid arthritis: (5) Schizoaffective disorder: Plan Reason Critically Ill: 27 YOM admitted to ICU post intentional overdose via ingestion, now intubated and mechanically ventilated. Ingestion of Ativan and ETOH Neuro: Acute encephalopathy upon presentation in ED -Suspect toxic/metabolic: Multifactorial -Cannot exclude hypoxic injury at this time: Concerning clinical history of agonal respirations when found in inf[place] intubation -Acute alcohol intoxication on presentation: Resolved Sedation with Versed and fentanyl and propofol -Checking triglycerides in a.m. Suicide attempt -Suicide note left -Records indicate Ativan may have been taken with alcohol Schizoaffective disorder Major depressive episode -302 for suicide attempt when medically cleared, reviewed psych liaison notes -Continue Lamictal: Lamictal level within normal limits -Caplyta nonformulary holding at present time - Holding estradiol, finasteride, gabapentin, modafinil, trazodone Resp: Severe acute respiratory distress syndrome secondary to aspiration of gastric contents into the airway -High PEEP low FiO2 tables: Mild improvement: vacillating between box 4 and 5 -Pronation therapy finished: 03/26 Aspiration into bronchial tree -Bronchoscopy performed 03/26 CV: Echo report from October 2022 reviewed -This appears to been obtained during an admission for upper GI bleeding which was felt to be secondary to esophagitis from NSAID use CPR performed in field -Patient did not have elevated troponins and EKG was normal sinus rhythm and has not had significant hemodynamic instability Fluids/Renal: Lactic acid acidosis: Improved Mild hypokalemia: resolved - electrolyte protocol Hypophosphatemia: Resolved ID: Coverage for aspiration pneumonia -Unasyn day #4 -BAL results pending GI/Nutrition: Increase tube feeds to goal. -History of esophagitis: October 2022 -Gastroenterology signing off Mild transaminitis: Resolved -Acute hepatitis panel: Negative for hepatitis A, B and C Heme: Anemia: Stable -Improved compared to October labs during which patient had acute blood loss anemia secondary to esophagitis Leukocytosis: Acute phase reactant DVT prophylaxis: Lovenox and SCDs Endocrine: ICU hyperglycemia protocol TSH within normal limits on February 2023 Vascular access: Left IJ triple-lumen catheter, left arterial line Code Status: Full code Disposition: ICU Admission and Anticipated Discharge Date Admission Date: March 25, 2023 Supervising Physician Co-Signing Physician Notes I have personally spent 55 minutes of critical care time in the direct management of this patient. This is a life/limb threatening event. This includes time spent evaluating patient, direct bedside care, chart review, placing orders, interpretation of diagnostic studies, discussion with consultants, patient, and/or family members regarding treatment decisions, as well as other required patient management activities. This time is exclusive of all separately billable procedures, and teaching time and separate from and in addition to any other critical care service time. Subjective Attempted sedation vacation this morning, patient not able to follow commands thrashing in bed dropped oxygen saturation became unsafe to self. Review of Systems Review of Systems: Unobtainable due to endotracheal tube Physical Exam Physical Exam: General: Sedated. nontoxic. Skin: Warm, dry, Head: Atraumatic Ears, nose, mouth and throat: airway obscured by endotracheal tube Cardiovascular: Normal peripheral perfusion Respiratory: Ventilator settings reviewed Gastrointestinal: Non distended Musculoskeletal: No deformity Results & Data Results & Data Vital Signs (Past 12 Hours) Vital Signs Temp Pulse Resp BP Pulse Ox FiO2 03/28/23 04:01 37.8 C H 86 18 96 03/28/23 04:01 108/62 03/28/23 04:00 37.8 C H 85 18 96 03/28/23 04:00 40 03/28/23 03:31 37.8 C H 86 18 96 03/28/23 03:31 114/59 L 03/28/23 03:15 88 18 95 40 03/28/23 03:01 37.7 C H 89 18 96 03/28/23 03:01 111/67 03/28/23 03:00 37.7 C H 88 18 96 03/28/23 02:31 37.7 C H 89 18 95 03/28/23 02:31 112/62 03/28/23 02:00 37.6 C H 92 H 18 96 03/28/23 02:00 125/73 03/28/23 02:00 37.6 C H 94 H 18 95 03/28/23 01:31 EST 37.6 C H 92 H 18 95 03/28/23 01:31 EST 115/67 03/28/23 01:31 EST 113/68 03/28/23 01:01 EST 37.6 C H 98 H 18 95 03/28/23 01:01 EST 122/74 03/28/23 01:01 EST 128/71 03/28/23 01:00 EST 37.5 C 102 H 18 94 03/28/23 00:31 37.5 C 90 18 95 03/28/23 00:31 111/58 L 03/28/23 00:01 107/59 L 03/28/23 00:01 37.6 C H 87 18 94 03/28/23 00:00 37.6 C H 86 18 94 03/28/23 00:00 50 03/27/23 23:31 116/67 03/27/23 23:31 37.5 C 98 H 18 92 03/27/23 23:15 99 H 23 93 50 03/27/23 23:00 120/77 03/27/23 23:00 37.5 C 95 H 18 92 03/27/23 22:17 37.6 C H 93 H 19 91 03/27/23 22:17 117/64 03/27/23 22:00 18 03/27/23 21:30 100/58 L 03/27/23 21:30 37.7 C H 83 18 94 03/27/23 21:00 37.7 C H 86 18 94 03/27/23 21:00 101/62 03/27/23 20:30 98/64 L 03/27/23 20:30 37.7 C H 87 18 94 Critical Care Results & Data Vital Signs (Past 12 Hours) Vital Signs Temp Pulse Resp BP Pulse Ox FiO2 03/28/23 04:01 37.8 C H 86 18 96 03/28/23 04:01 108/62 03/28/23 04:00 37.8 C H 85 18 96 03/28/23 04:00 40 03/28/23 03:31 37.8 C H 86 18 96 03/28/23 03:31 114/59 L 03/28/23 03:15 88 18 95 40 03/28/23 03:01 37.7 C H 89 18 96 03/28/23 03:01 111/67 03/28/23 03:00 37.7 C H 88 18 96 03/28/23 02:31 37.7 C H 89 18 95 03/28/23 02:31 112/62 03/28/23 02:00 37.6 C H 92 H 18 96 03/28/23 02:00 125/73 03/28/23 02:00 37.6 C H 94 H 18 95 03/28/23 01:31 EST 37.6 C H 92 H 18 95 03/28/23 01:31 EST 115/67 03/28/23 01:31 EST 113/68 03/28/23 01:01 EST 37.6 C H 98 H 18 95 03/28/23 01:01 EST 122/74 03/28/23 01:01 EST 128/71 03/28/23 01:00 EST 37.5 C 102 H 18 94 03/28/23 00:31 37.5 C 90 18 95 03/28/23 00:31 111/58 L 03/28/23 00:01 107/59 L 03/28/23 00:01 37.6 C H 87 18 94 03/28/23 00:00 37.6 C H 86 18 94 03/28/23 00:00 50 03/27/23 23:31 116/67 03/27/23 23:31 37.5 C 98 H 18 92 03/27/23 23:15 99 H 23 93 50 03/27/23 23:00 120/77 03/27/23 23:00 37.5 C 95 H 18 92 03/27/23 22:17 37.6 C H 93 H 19 91 03/27/23 22:17 117/64 03/27/23 22:00 18 03/27/23 21:30 100/58 L 03/27/23 21:30 37.7 C H 83 18 94 03/27/23 21:00 37.7 C H 86 18 94 03/27/23 21:00 101/62 03/27/23 20:30 98/64 L 03/27/23 20:30 37.7 C H 87 18 94 Lab & Micro Results (Past 24 Hours) RBC 3.49 M/uL (4.70-6.10) L 03/28/23 WBC 9.24 K/ul (4.8-10.8) 03/28/23 Hgb 8.9 g/dl (14.0-18.0) L 03/28/23 Hct 28.0 % (42.0-52.0) L 03/28/23 MCV 80.2 fL (80.0-100.0) 03/28/23 MCH 25.5 pg (25.0-34.0) 03/28/23 MCHC 31.8 g/dL (32.0-36.0) L 03/28/23 RDW Standard Deviation 52.7 fL (36.4-46.3) H 03/28/23 RDW Coefficient of Variation 18.7 % (11.5-14.5) H 03/28/23 Plt Count 306 K/uL (130-400) 03/28/23 MPV 9.7 fL (9.4-12.4) 03/28/23 Neutrophils (%) (Auto) 68.8 % 03/28/23 Lymphocytes (%) (Auto) 19.4 % 03/28/23 Monocytes # (Auto) 0.70 K/uL (0.11-0.59) H 03/28/23 Eosinophils # (Auto) 0.27 K/uL (0.00-0.50) 03/28/23 Immature Granulocyte % (Auto) 0.5 % 03/28/23 Neutrophils # (Auto) 6.36 K/uL (1.40-6.50) 03/28/23 Lymphocytes # (Auto) 1.79 K/uL (1.20-3.40) 03/28/23 Monocytes # (Auto) 0.70 K/uL (0.11-0.59) H 03/28/23 Eosinophils # (Auto) 0.27 K/uL (0.00-0.50) 03/28/23 Basophils # (Auto) 0.07 K/uL (0.00-0.20) 03/28/23 Immature Granulocyte # (Auto) 0.05 K/uL (0.01-0.20) 3 Na 137 mmol/L (136-145) 03/28/23 K 3.4 mmol/L (3.5-5.1) L 03/28/23 Cl 104 mmol/L (98-107) 03/28/23 CO2 28 mmol/L (21-32) 03/28/23 Anion Gap 5 (3-11) 03/28/23 BUN 13 mg/dl (6-23) 03/28/23 Creatinine 0.80 mg/dl (0.6-1.4) 03/28/23 Estimated GFR ( Amer) 143.9 ml/min 03/28/23 Estimated GFR (Non-Af Amer) 124.2 ml/min 03/28/23 BUN/Creatinine Ratio 16.3 (10-20) 03/28/23 Glu 80 mg/dl (70-99(Fasting)) 03/28/23 Ca 7.9 mg/dl (8.6-10.3) L 03/28/23 Phosphorus Level 3.2 mg/dl (2.5-4.9) 03/28/23 Mg 1.9 mg/dl (1.7-2.4) 03/28/23 03:50 Calcium Level 7.9 mg/dl (8.6-10.3) L 03/28/23 03:50 Microbiology 03/26/23 Unknown Gram Stain - Final Bronch Wash,Right Middle Lobe Bronchial Culture - Preliminary No growth 03/26/23 Unknown Fungal Smear - Final Ba Lavage,Right Middle Lobe Fungal Culture - Preliminary No yeast or fungus isolated - Report 1, Additional Report to Follow. Diagnostic Findings (Past 24 Hours) Chest X-Ray 03/27/23 07:00 XR chest 1V portable CLINICAL HISTORY: Resp failure TECHNIQUE: Single frontal radiograph of the chest was obtained. Comparison: Comparison is made to chest radiograph 03/26/2023 FINDINGS: Lines and tubes are stable. The cardiomediastinal silhouette is normal. Bibasilar airspace opacities are unchanged. Pleural effusions cannot be excluded. IMPRESSION: Bibasilar airspace opacities are unchanged from prior exam. Satisfactory appearance of lines and tubes. ACT 112: Negative or not required by law. Electronically signed by: Braulio Menjivar M.D. 03/27/2023 6:31 PM I & O Totals 24 Hours 03/27/23 03/28/23 03/29/23 07:59 06:59 06:59 Intake Total 313.047 / 313.047 Output Total Balance 313.047 / 313.047 Cumulative 03/24/23 22:44 thru 03/28/23 07:09 Intake Total 22430.712 Output Total 9940 Balance 8504.712 RT Ventilator Mngmt (Last Documented) Ventilator Ordered Settings Ventilator Support Mode Assist Control 03/28/23 04:00 Respiratory Rate 18 03/28/23 04:01 Ventilator Tidal Volume 500 03/28/23 04:00 Setting Minute Ventilation 9 03/28/23 03:15 Positive End Expiratory 14 03/28/23 04:00 Pressure Fraction of Inspired Oxygen 40 03/28/23 04:00 Peak Inspiratory Flow 13 03/25/23 01:44 Machine Comment Changes made per dr. sorenson 03/25/23 10:36 Ventilator - PT Measurements Respiratory Rate 18 Exhaled Tidal Volume 500 Minute Ventilation 9 Peak Inspiratory Airway 29 Pressure Plateau Pressure 26 Respiratory Cycle Inspiratory: 1:2.3 Expiratory Ratio Inspiratory Phase Time 1.0 End-Tidal CO2 39 Static Lung Compliance 41.67 Dynamic Lung Compliance 33.33 Normal Static Lung Compliance 47.00 Patient Measurements Comment fi02 dropped to 35% spo2 95% Coding Level of Care Code 72311 CRITICAL CARE 1ST 30-74M Diagnoses Overdose by ingestion T50.901A Alcohol intoxication F10.921 Complication of substance-induced condition: with delirium Respiratory failure J96.02 Chronicity: acute Respiratory failure complication: hypercapnia Rheumatoid arthritis, involving unspecified site, unspecified whether rheumatoid factor present M06.9 Rheumatoid arthritis location: unspecified site Rheumatoid factor presence: unspecified presence Schizoaffective disorder F25.0 Schizoaffective disorder type: bipolar (2) Alcohol intoxication Complication of substance-induced condition: with delirium Qualified Code(s): F10.921 - Alcohol use, unspecified with intoxication delirium (3) Respiratory failure Chronicity: acute Respiratory failure complication: hypercapnia Qualified Code(s): J96.02 - Acute respiratory failure with hypercapnia (4) Rheumatoid arthritis Rheumatoid arthritis location: unspecified site Rheumatoid factor presence: unspecified presence Qualified Code(s): M06.9 - Rheumatoid arthritis, unspecified (5) Schizoaffective disorder Schizoaffective disorder type: bipolar Qualified Code(s): F25.0 - Schizoaffective disorder, bipolar type
[2023-03-28] MEDS: ENOXAPARIN INJ 40 MG/0.4 ML SYR SQ SCH ×2 (08:01→20:05)
[2023-03-28] MEDS: MULTI VIT W/MINERALS LIQUID 15 ML UDP NG SCH (08:01)
[2023-03-28] MEDS: PANTOprazole 40 MG in SYRINGE 0 ML IV SCH ×2 (08:01→20:06)
[2023-03-28] MEDS ORDERED: ACETAMINOPHEN 1,000 MG/100 ML VIAL IV PRN (10:50)
[2023-03-28] MEDS: MIDAZOLAM HCL 125 MG/250 ML BAG IV SCH (11:07)
--- NOTE | 2023-03-28 12:19 | XRay Report ---
XR chest 1V portable CLINICAL HISTORY: Resp failure TECHNIQUE: Single frontal radiograph of the chest was obtained. Comparison: Comparison is made to chest radiograph 03/27/2023 FINDINGS: Lines and tubes are stable. The cardiomediastinal silhouette is stable. Right lower lung airspace opa cities are more prominent than in the prior exam. Left lower lung opacities are unchanged. Right effu sonu cannot be entirely excluded. IMPRESSION: Interval worsening of right lower lung airspace opacity which likely reflects atelectasis with or wit hout superimposed aspiration/pneumonia. Stable faint left lower lung airspace opacities. ACT 112: Negative or not required by law. Electronically signed by: Braulio Menjivar M.D. 03/28/2023 12:18 PM
--- NOTE | 2023-03-28 16:12 | Hospitalist Progress Note ---
Date of Service March 28, 2023 Assessment & Plan (1) Hypotension: Plan: Acute metabolic encephalopathy Multifactorial: Toxic and metabolic: Drug overdose, alcohol intoxication, Hypoxia Acute respiratory failure with hypoxia and Hypercarbia Suicide Attempt --Head CT: Normal head/brain CT. S/P Intubation Atracurium discontinued Appreciate critical care input Vent management as per ICU team Psychiatry following Tolerating tube feeds Patient's family requesting psychiatry from [facility] to discuss with patient's primary psychiatrist when appropriate to coordinate care EEG pending Aspiration pneumonia --CXR:Bilateral airspace opacities most pronounced on the left S/P bronchoscopy on 03/26/23 Aspiration precautions Currently on Unasyn Bronchial cultures pending Leukocytosis normalized Hypophosphatemia Hypocalcemia Hypokalemia Replete electrolytes as needed Monitor Bloody emesis Suspected upper GI bleed H/O NSAID esophagitis DD: Esophagitis, peptic ulcer disease, gastritis etc GI on board Continue IV Protonix Hb drop likely dilational Monitor CBC ADHD Schizoaffective disorder Past suicidal ideation One-to-one observation, suicide precautions Hold all antipsychotic medications for now Cannot leave AMA, [address] Combined respiratory/metabolic acidosis Lactic acidosis Lactic acid levels trended down Received IV bicarbonate ANUEL CPAP intolerance H/O Congenital nasal septal deviation S/P surgery per record DVT Px: SCDs Lovenox SQ Code Status Full code Admission and Anticipated Discharge Date Admission Date: March 25, 2023 Subjective Patient is seen and examined at bedside Remains sedated and Intubated Discussed with patient's family at bedside Low-grade fever today Agitated when sedation weaned per sales facilitator of Systems Review of Systems: Unobtainable due to endotracheal tube Physical Exam Physical Exam: Physical Exam: Vitals signs as noted above General Appearance:Obese, no apparent distress,+Intubated Head: normocephalic, Atraumatic Eyes: normal inspection, EOMI Neck: supple, Trachea midline Respiratory/Chest: Normal breath sounds, CTA, No accessory muscle use Cardiovascular: S1, S2, No murmur Abdomen/GI:Soft, Non tender, Bowel sounds present Extremities/Musculoskeletal:normal inspection, no edema Neurologic/Psych:Unable to perform neurological exam Skin: normal color, warm Results & Data Results & Data Vital Signs (Past 12 Hours) Vital Signs Temp Pulse Resp BP Pulse Ox O2 Del Method FiO2 03/28/23 15:05 80 18 92 30 03/28/23 12:00 30 03/28/23 11:05 84 19 92 30 03/28/23 09:02 37.8 C H 87 18 108/61 90 Mechanical Vent 30 03/28/23 09:00 83 03/28/23 08:00 87 123/68 90 Mechanical Vent 30 03/28/23 08:00 Mechanical Vent 30 03/28/23 08:00 30 03/28/23 07:15 82 18 94 40 03/28/23 07:00 37.8 C H 85 18 113/64 94 Mechanical Vent 40 03/28/23 07:00 37.7 C H Laboratory Results Short CBC 03/28/23 Range/Units 03:50 WBC 9.24 (4.8-10.8) K/ul Hgb 8.9 L (14.0-18.0) g/dl Hct 28.0 L (42.0-52.0) % Plt Count 306 (130-400) K/uL BMP 03/28/23 03:50 Sodium 137 Potassium 3.4 L Chloride 104 Carbon Dioxide 28 BUN 13 Creatinine 0.80 Glucose 80 Calcium 7.9 L
[2023-03-28] MEDS: PEPTAMEN INTENSE VHP 1.0 CAL 1,000 ML BAG OG SCH (16:52)
[2023-03-29] MEDS: ARTIFICIAL TEARS OP OINT 3.5 GM TUBE OP SCH ×6 (00:01→20:36)
[2023-03-29] MEDS: INSULIN ASPART PER UNIT CHARGE SC SCH ×4 (00:12→18:31)
[2023-03-29] MEDS: propofoL 1,000 MG/100 ML VIAL IV SCH ×3 (01:21→08:20)
[2023-03-29] MEDS: PROPOFOL BOLUS FROM BAG IV PRN ×3 (01:38→05:00)
[2023-03-29] MEDS: PLASMA-LYTE A 1,000 ML IV SCH (03:39)
[2023-03-29] MEDS: TUBE FEEDING WATER FLUSH GT SCH ×2 (03:40→07:53)
[2023-03-29] MEDS: MIDAZOLAM HCL 125 MG/250 ML BAG IV SCH ×4 (04:14→21:21)
[2023-03-29 04:40] LABS: Basophils # (auto) 0.04 K/uL (0.00-0.20); Basophils % (auto) 0.5 %; Eosinophils # (auto) 0.26 K/uL (0.00-0.50); Eosinophils % (auto) 3.5 %; Hematocrit (blood only) 29.1 % (42.0-52.0); Immature Granulocytes # (auto) 0.05 K/uL (0.01-0.20); Immature Granulocytes % (auto) 0.7 %; Lymphocytes # (auto) 1.39 K/uL (1.20-3.40); Lymphocytes % (auto) 18.5 %; Mean Corpuscular Hemoglobin 25.1 pg (25.0-34.0); Mean Corpuscular Hgb Conc 30.9 g/dL (32.0-36.0); Mean Corpuscular Volume 81.1 fL (80.0-100.0); Mean Platelet Volume 9.9 fL (9.4-12.4); Monocytes # (auto) 0.75 K/uL (0.11-0.59); Neutrophils # (auto) 5.01 K/uL (1.40-6.50); Neutrophils % (auto) 66.8 %; Platelet Count 328 K/uL (130-400); RDW Coefficient of Variation 18.5 % (11.5-14.5); RDW Standard Deviation 53.9 fL (36.4-46.3); Red Blood Count 3.59 M/uL (4.70-6.10)
[2023-03-29 04:51] LABS: BUN Creatinine Ratio 16.5 (10-20); Calcium 8.2 mg/dl (8.6-10.3); Creatinine Clr Calc Pharmacy 212.2 ml/min; Est GFR (African American) 144.7 ml/min; Est GFR (Non-African American) 124.8 ml/min; Phosphorus 3.1 mg/dl (2.5-4.9); Potassium 3.8 mmol/L (3.5-5.1)
[2023-03-29] MEDS: UNASYN 3000MG / NS q6h IV SCH ×3 (04:58→18:15)
[2023-03-29] MEDS: ICU ELECTROLYTE REPLACEMENT PROTOCOL SCH ×3 (04:58→18:22)
[2023-03-29] MEDS: fentaNYL BOLUS from BAG IV PRN ×3 (05:00→22:57)
[2023-03-29 05:18] LABS: iSTAT Allen Test Pass; iSTAT Art Bld Gas pCO2 Correct 42 mmHg (35-46); iSTAT Art Bld Gas pH Corrected 7.402 (7.35-7.45); iSTAT Arterial Blood Gas HCO3 26 meg/L (19-24); iSTAT Arterial Blood Gas pCO2 41 mmHg (35-46); iSTAT Arterial Blood Gas pH 7.41 (7.35-7.45); iSTAT Arterial Blood Gas pO2 62 mmHg (80-95); iSTAT Arterial Blood Gas pO2 C 65; iSTAT Carbon Dioxide 27 mmol/L (24-31); iSTAT FiO2 30 %; iSTAT Hematocrit 27 % (42-52); iSTAT Hemoglobin 9.2 g/dl (14.0-18.0); iSTAT Potassium 3.7 mmol/L (3.3-5.0); iSTAT Site L Radial; iSTAT Sodium 136 mmol/L (135-144)
[2023-03-29] MEDS: POTASSIUM CHLORIDE / WTR 20 MEQ/100 ML PLCT IV SCH ×2 (05:37→07:53)
[2023-03-29] MEDS: MAGNESIUM SULFATE / D5W 1 GM/100 ML BAG IV SCH ×2 (05:37→07:53)
--- NOTE | 2023-03-29 07:10 | XRay Report ---
XR chest 1V portable HISTORY: Resp failure COMPARISON: Chest 03/28/2023. FINDINGS: The endotracheal tube terminates 3 mm and the za. This report back by approximately 2 c m. Nasogastric tube terminates below the diaphragm with the tip terminating at the gastric fundus. A left jugular central venous catheter terminates at the distal SVC. This remains unchanged. No pneumot horax. The heart remains enlarged. There are low lung volumes. Perihilar interstitial/vascular thicke nellie persists consistent with pulmonary edema. Small bilateral pleural effusions and patchy bibasilar densities again noted. IMPRESSION: 1. The endotracheal tube terminates 3 mm in the za. This should be pulled back by approximately 2 cm. 2. Cardiomegaly and pulmonary edema again noted. 3. Small bilateral pleural effusions and bibasilar densities persist. 4. This report was called/faxed to the referring physician following dictation. ACT 112: Negative or not required by law. Electronically signed by: Abhishek Ohara M.D. 03/29/2023 7:09 AM
[2023-03-29] MEDS: ENOXAPARIN INJ 40 MG/0.4 ML SYR SQ SCH ×2 (07:54→20:37)
[2023-03-29] MEDS: PANTOprazole 40 MG in SYRINGE 0 ML IV SCH ×2 (08:19→20:36)
[2023-03-29] MEDS: MULTI VIT W/MINERALS LIQUID 15 ML UDP NG SCH (08:19)
[2023-03-29] MEDS ORDERED: FUROSEMIDE 40 MG/4 ML VIAL IV ONE (08:24)
--- NOTE | 2023-03-29 08:36 | Critical Care Progress Note ---
Date of Service Mr. Jose Mckeon is a 27YO M with a history of schizoaffective disorder, major depression, obesity, RA on Humira, ANUEL non-compliant with CPAP, and erosive esophagitis who was admitted to [facility] ICU 03/24/2023 AM after an intentional overdose involving ETOH and benzodiazepines. Course complicated by ARDS i/s/o large volume aspiration. He has been removed from sustained NMB, weaning ventilator and sedation. Covered with Unasyn, BAL cx negative. Overnight no acute events, afebrile, hemodynamically stable. Patient seen in ICU 104. He is obtunded. Currently on 8mg/hr Versed, 30mg/hr Propofol, and 175mcg/hr Fentanyl. IVF infusing at 100cc/hr. UOP adequate overnight, patient remains 11L +. Electrolytes repleted, kidney function stable. Leukocytosis has resolved. ROS unable to be obtained due to clinical status. Assessment & Plan (1) Overdose by ingestion: (2) Alcohol intoxication: (3) Respiratory failure: (4) Rheumatoid arthritis: Plan Reason Critically Ill: 27 YOM admitted to ICU post intentional overdose via ingestion, now intubated and mechanically ventilated. Ingestion of Ativan and ETOH Neuro: Acute encephalopathy upon presentation in ED -Suspect toxic/metabolic: Multifactorial -Cannot exclude hypoxic injury at this time: Concerning clinical history of agonal respirations when found in [place] intubation -Consider surveillance CTHvs MRI to assess if he doesn't respond to decreased sedation -Acute alcohol intoxication on presentation: Resolved RASS goal (-1), wean Versed first, start scheduled clonazepam to avoid withdrawal TG level 290 today, consider transition to Precedex pending response to Versed wean Suicide attempt Schizoaffective disorder Major depressive episode -302 for suicide attempt when medically cleared, reviewed psych liaison notes -Continue Lamictal: Lamictal level within normal limits -Caplyta nonformulary holding at present time - Holding estradiol, finasteride, gabapentin, modafinil, trazodone - Will redo med rec with family present today Resp: Severe acute respiratory distress syndrome secondary to aspiration of gastric contents into the airway -High PEEP low FiO2 tables -SpO2 goal 92% -Vt decreased to patient's 6mL/kg per ARDSNET protocol -Pronation therapy finished: 03/26 Aspiration into bronchial tree -Bronchoscopy performed 03/26 Respiratory driven protocol, no need for frequent ABG, follow pulse oximeter ETT pulled back to 27cm this AM CV: Echo report from October 2022 reviewed, WNL CPR performed in field MAP goal 65mmHg Fluids/Renal: Replete electrolytes as indicated Patient is 11L +, will start scheduled diuresis pending response Lina[place] for accurate I/Os ID: Coverage for aspiration pneumonia -Unasyn day #5 -BAL no growth, rare GPC, eosinophils present - will re-bronch and send for cx, gs, fungitell Start Solumedrol 80mg Q8H pending repeat bronch GI/Nutrition: Diet: TF at goal -History of esophagitis: October 2022 SUP: PPI, transition to PO Heme: Anemia: Stable Leukocytosis: Improved DVT prophylaxis: Lovenox and SCDs Endocrine: ICU hyperglycemia protocol, BG 140-180 per [facility] guidelines TSH within normal limits on February 2023 Vascular access: LIJ CVC: Day #4, obtain adequate peripheral access within 2 days and remove Arterial line: Day #4 Linares: Day #4 Code Status: Full code Disposition: ICU Admission and Anticipated Discharge Date Admission Date: March 25, 2023 Results & Data Results & Data Vital Signs (Past 12 Hours) Vital Signs Temp Pulse Resp BP Pulse Ox O2 Del Method FiO2 03/29/23 07:31 37.3 C 76 16 113/71 92 Mechanical Vent 30 03/29/23 07:30 77 18 92 40 03/29/23 07:00 37.3 C 76 18 115/67 93 Mechanical Vent 40 03/29/23 06:31 37.5 C 75 16 93 Mechanical Vent 40 03/29/23 06:31 112/70 03/29/23 06:01 116/70 03/29/23 06:01 37.7 C H 77 16 92 Mechanical Vent 40 03/29/23 05:31 111/67 03/29/23 05:31 82 16 89 L Mechanical Vent 30 03/29/23 05:01 120/79 03/29/23 05:00 37.6 C H 73 18 93 Mechanical Vent 30 03/29/23 04:31 116/67 03/29/23 04:31 37.7 C H 77 16 91 Mechanical Vent 30 03/29/23 04:01 112/74 03/29/23 04:00 37.7 C H 77 18 90 Mechanical Vent 30 11/06/23 04:00 30 03/29/23 03:31 112/73 03/29/23 03:31 37.6 C H 78 16 90 Mechanical Vent 30 03/29/23 03:01 37.6 C H 78 15 91 Mechanical Vent 30 03/29/23 03:01 113/78 03/29/23 03:00 78 18 91 30 03/29/23 02:31 125/73 03/29/23 02:31 37.6 C H 79 15 92 Mechanical Vent 30 03/29/23 02:01 37.7 C H 78 18 91 Mechanical Vent 30 03/29/23 02:01 114/72 03/29/23 01:31 113/68 03/29/23 01:31 37.7 C H 79 18 Mechanical Vent 30 03/29/23 01:01 123/68 03/29/23 01:01 37.9 C H 82 18 90 Mechanical Vent 30 03/29/23 00:31 121/70 03/29/23 00:31 37.9 C H 90 18 92 30 03/29/23 00:01 125/69 03/29/23 00:01 37.8 C H 87 18 96 30 03/29/23 00:00 30 03/28/23 23:40 88 18 94 30 03/28/23 23:31 37.8 C H 87 18 96 30 03/28/23 23:31 114/70 03/28/23 23:28 82 03/28/23 23:01 121/66 03/28/23 23:01 37.8 C H 81 18 96 30 03/28/23 22:31 116/64 03/28/23 22:31 37.8 C H 82 18 96 30 03/28/23 22:01 119/62 03/28/23 22:01 37.8 C H 83 18 94 30 03/28/23 21:31 123/69 03/28/23 21:31 37.8 C H 91 H 18 92 30 03/28/23 21:01 37.8 C H 93 H 18 91 30 03/28/23 21:01 127/76 03/28/23 20:45 91 H 18 92 30 Coding Level of Care Code 54728 CRITICAL CARE 1ST 30-74M Diagnoses Overdose by ingestion T50.901A Alcohol intoxication F10.921 Complication of substance-induced condition: with delirium Respiratory failure J96.02 Chronicity: acute Respiratory failure complication: hypercapnia Rheumatoid arthritis, involving unspecified site, unspecified whether rheumatoid factor present M06.9 Rheumatoid arthritis location: unspecified site Rheumatoid factor presence: unspecified presence (2) Alcohol intoxication Complication of substance-induced condition: with delirium Qualified Code(s): F10.921 - Alcohol use, unspecified with intoxication delirium (3) Respiratory failure Chronicity: acute Respiratory failure complication: hypercapnia Qualified Code(s): J96.02 - Acute respiratory failure with hypercapnia (4) Rheumatoid arthritis Rheumatoid arthritis location: unspecified site Rheumatoid factor presence: unspecified presence Qualified Code(s): M06.9 - Rheumatoid arthritis, unspe cified
[2023-03-29] MEDS: clonazePAM 1 MG TAB PO SCH ×2 (08:42→21:08)
[2023-03-29 09:27] LABS: iSTAT Allen Test Pass; iSTAT Art Bld Gas pCO2 Correct 44 mmHg (35-46); iSTAT Art Bld Gas pH Corrected 7.405 (7.35-7.45); iSTAT Arterial Blood Gas HCO3 27 meg/L (19-24); iSTAT Arterial Blood Gas pCO2 42 mmHg (35-46); iSTAT Arterial Blood Gas pH 7.42 (7.35-7.45); iSTAT Arterial Blood Gas pO2 100 mmHg (80-95); iSTAT Arterial Blood Gas pO2 C 105; iSTAT Carbon Dioxide 29 mmol/L (24-31); iSTAT FiO2 50 %; iSTAT Hematocrit 24 % (42-52); iSTAT Hemoglobin 8.2 g/dl (14.0-18.0); iSTAT Potassium 3.5 mmol/L (3.3-5.0); iSTAT Site L Radial; iSTAT Sodium 136 mmol/L (135-144)
[2023-03-29] MEDS ORDERED: methylPREDNISolone 80 MG in SYRINGE 0 ML IV SCH (10:00)
--- NOTE | 2023-03-29 10:29 | Procedure Note ---
Procedure Note Date of Service March 29, 2023 Supervising Physician Co-Signing Physician Notes PREOPERATIVE DIAGNOSIS: Diffuse infiltrates in a patient with ARDS and possible eosinophilic pneumonia POSTOPERATIVE DIAGNOSIS: Same as above PROCEDURE PERFORMED: Flexible fiberoptic bronchoscopy with bronchial washings from the right lung COMPLICATIONS: None. INDICATION: Evaluate for eosinophilic pneumonia and bacterial/fungal infection. PROCEDURE: Informed consent was obtained from the patient's family member. Timeout was performed directly prior to the procedure. Patient was already intubated and sedated for the procedure. Patient's FiO2 was increased to 100% on the ventilator prior to the procedure to hypoxemic patient. Bronchoscope was introduced via the ET tube bronchoscope adapter. Trachea and za were visualized. Za appeared sharp. Thick white bronchial secretions noted emanating from the right upper lobe and extending to the right lower lobe. A suction trap was placed onto the bronchoscope. 60 mL of saline was instilled into the right lung and approximately 40 mL of fluid is aspirated back. Bilateral tracheobronchial tree was then inspected without any obvious lesion. Patient tolerated procedure well. The scope was withdrawn. Recommendations: Follow-up cultures, cytology and cell counts from the BAL fluid. We will send for Aspergillus galactomannan and Fungitell from the BAL. Coding CPT Codes Pulmonary/Thoracic - Pulmonary and Thoracic: 23141 Dx bronchoscopy/BAL ([id number]) [facility] [place]arges) Pulmonary/Thoracic Procedure 1: Pulmonary and Thoracic: 04962 Dx bronchoscopy/BAL
[2023-03-29] MEDS: fentaNYL citrate 2,500 MCG/250 ML BAG IV SCH ×3 (10:56→23:57)
--- NOTE | 2023-03-29 11:45 | Communication Note ---
Date of Service: March 29, 2023 Reached out to patient's psychiatrist, Dr. Celis, from [place], [place] to discuss the best plan of action for Jose's psych medications. He remains off Lamictal, Trazodone, and Caplyta. We discussed the clinical course, and he suggested starting Risperdal in jasmyne of his Lamictal and Caplyta (which we cannot get inpatient). Dr. Celis said that Jose has excessive somnolence on Seroquel, but it remains a good option in the short term for his psychotic symptoms as we wean his sedation for extubation in the next few days. Dr. Celis will titrate these medications as outpatient and make adjustments as necessary. -Continue PO Klonipin, titrate to response -Start Risperdal ODT, titrate to response -RASS -1, wean Versed -Has chronic pain from arthritis, consider PO opiate vs increasing Gabapentin as we transition off continuous infusions, multimodal pain management 30 minutes of CC time spent counseling family, evaluating patient, discussing clinical course and plan with team. Coding Level of Care Code 83515 CRITICAL CARE EA ADD 30M
[2023-03-29] MEDS ORDERED: STAT IV Infusion **Titration per Protocol STA (12:32)
[2023-03-29 12:54] LABS: BUN Creatinine Ratio 16.3 (10-20); Calcium 8.4 mg/dl (8.6-10.3); Creatinine Clr Calc Pharmacy 209.6 ml/min; Est GFR (African American) 143.9 ml/min; Est GFR (Non-African American) 124.2 ml/min
[2023-03-29 13:04] LABS: Basophil Body Fluid Man 0 %; Eosinophil Body Fluid Man 32 %; Fluid Mono/Macrophage 34 %; Lymphocyte Body Fluid Man 12 %; Neutrophil Body Fluid Man 22 %
--- NOTE | 2023-03-29 13:14 | Electrocardiogram Report ---
Test Reason : Blood Pressure : / mmHG Vent. Rate : 090 BPM Atrial Rate : 090 BPM P-R Int : 148 ms QRS Dur : 084 ms QT Int : 350 ms P-R-T Axes : 027 025 026 degrees QTc Int : 428 ms Normal sinus rhythm Normal ECG When compared with ECG of 25-MAR-2023 01:19, No significant change was found Confirmed by Heath Connolly ([id number]) on 03/29/2023 1:14:34 PM Referred By: REFERRED SELF Confirmed By:Heath Connolly
--- NOTE | 2023-03-29 13:17 | Communication Note ---
Date of Service: March 29, 2023 interim progress reviewed as patient unable to be assessed due to sedation, desats with direct care, underwent bronchoscopy. 302 warrant expiring today. As patient improves, if should attempt to leave hospital AMA a new warrant would need to be obtained. It appears that his outpatient psychiatrist has communicated directly with critical care team re: medications and will be starting Risperdal.
--- NOTE | 2023-03-29 13:21 | Electroencephalogram ---
EEG Procedure Note Date of Service March 29, 2023 Start / End Times Start Time: 1157 End Time: [address] Neville History 27-year-old with history of alcohol and lorazepam overdose with unresponsiveness/encephalopathy Home Medication List Medication Instructions Recorded Confirmed Type adalimumab 40 mg/0.4 mL 40 mg subcut DIRECTED 03/11/23 03/24/23 History subcutaneous pen kit (Humira(CF) Pen) finasteride 5 mg tablet 5 mg PO DAILY 03/11/23 03/24/23 History gabapentin 100 mg capsule 200 mg PO BID 03/11/23 03/24/23 History lamotrigine 25 mg tablet (Lamictal) 50 mg PO QPM 03/11/23 03/24/23 History lumateperone 42 mg capsule 42 mg PO QPM 03/11/23 03/24/23 History (Caplyta) spironolactone 50 mg tablet 50 mg PO BID 03/11/23 03/24/23 History estradiol 2 mg tablet 2 mg PO BID 03/24/23 03/24/23 History lorazepam 0.5 mg tablet 0.5 mg PO Q8 PRN Anxiety 03/24/23 03/24/23 History modafinil 100 mg tablet 100 mg PO DAILY 03/24/23 03/24/23 History omeprazole 40 mg capsule,delayed 40 mg PO QAM 03/24/23 03/24/23 History release trazodone 50 mg tablet 50 mg PO BID 03/24/23 03/24/23 History Inpatient Medication List Clonazepam (Clonazepam 1 Mg Tab) 1 mg PO BID [facility] Stop: 04/28/23 08:59 Last Admin: 03/29/23 08:42 Dose: 1 mg Documented By: OTILIO Enoxaparin Sodium (Enoxaparin Inj 40 Mg/0.4 Ml Syr) 40 mg SQ BID [facility] Stop: 04/24/23 11:29 Last Admin: 03/29/23 07:54 Dose: 40 mg Documented By: Admin: 03/28/23 20:05 Dose: 40 mg Documented By: Admin: 03/28/23 08:01 Dose: 40 mg Documented By: Admin: 03/27/23 20:34 Dose: 40 mg Documented By: Admin: 03/27/23 08:24 Dose: 40 mg Documented By: Admin: 03/26/23 21:13 Dose: 40 mg Documented By: TP Fentanyl Citrate (Fentanyl Bolus From Bag) 50 mcg IV Q60M PRN PRN Reason: Pain or Agitation Stop: 04/08/23 09:11 Last Admin: 03/29/23 05:00 Dose: 50 mcg Documented By: SANDRA Co-signed By: HAIDER Admin: 03/27/23 12:20 Dose: 50 mcg Documented By: GPF Co-signed By: CAM Admin: 03/25/23 10:14 Dose: 50 mcg Documented By: JAGJIT Co-signed By: LEVI Midazolam HCl (Versed) 125 mg in 250 mls @ 14 mls/hr IV .[id number] [facility]; Protocol Stop: 04/24/23 09:14 Last Admin: 03/29/23 10:27 Dose: Not Given Documented By: Admin: 03/29/23 09:56 Dose: Not Given Documented By: Titration: 03/29/23 09:35 Dose: 7 mg/hr, 14 mls/hr Documented By: OTILIO Co-signed By: DEBBIE Titration: 03/29/23 08:39 Dose: 7.5 mg/hr, 15 mls/hr Documented By: OTILIO Co-signed By: ALY Titration: 03/29/23 07:03 Dose: 8 mg/hr, 16 mls/hr Documented By: SANDRA Co-signed By: OTILIO Admin: 03/29/23 04:14 Dose: 8 mg/hr, 16 mls/hr Documented By: MNPeg Co-signed By: HAIDER Titration: 03/29/23 02:45 Dose: Infused Documented By: MNPeg Co-signed By: HAIDER Titration: 03/28/23 19:04 Dose: 8 mg/hr, 16 mls/hr Documented By: MNPeg Co-signed By: GOKUL Admin: 03/28/23 11:07 Dose: 8 mg/hr, 16 mls/hr Documented By: GOKUL Co-signed By: KIN Titration: 03/28/23 11:07 Dose: Infused Documented By: GOKUL Co-signed By: KIN Titration: 03/28/23 07:09 Dose: 8 mg/hr, 16 mls/hr Documented By: KIN Co-signed By: TP Admin: 03/27/23 20:35 Dose: 8 mg/hr, 16 mls/hr Documented By: TP Co-signed By: CP Titration: 03/27/23 20:35 Dose: Infused Documented By: TP Co-signed By: CP Admin: 03/27/23 19:02 Dose: Not Given Documented By: Admin: 03/27/23 19:01 Dose: Not Given Documented By: Titration: 03/27/23 18:54 Dose: 8 mg/hr, 16 mls/hr Documented By: TP Co-signed By: GPF Titration: 03/27/23 18:42 Dose: 8 mg/hr, 16 mls/hr Documented By: GPF Co-signed By: CMP Admin: 03/27/23 17:24 Dose: Not Given Documented By: Titration: 03/27/23 12:45 Dose: 10 mg/hr, 20 mls/hr Documented By: GPF Co-signed By: CAM Titration: 03/27/23 12:19 Dose: 8 mg/hr, 16 mls/hr Documented By: GPF Co-signed By: CAM Titration: 03/27/23 06:49 Dose: 6 mg/hr, 12 mls/hr Documented By: TP Co-signed By: GPF Admin: 03/27/23 05:52 Dose: 6 mg/hr, 12 mls/hr Documented By: TP Co-signed By: HAIDER Titration: 03/27/23 05:52 Dose: Infused Documented By: TP Co-signed By: ELS Admin: 03/26/23 21:14 Dose: Not Given Documented By: Titration: 03/26/23 18:59 Dose: 6 mg/hr, 12 mls/hr Documented By: TP Co-signed By: JLM Titration: 03/26/23 15:16 Dose: 6 mg/hr, 12 mls/hr Documented By: JLM Co-signed By: CAM Admin: 03/26/23 14:14 Dose: 7 mg/hr, 14 mls/hr Documented By: JAGJIT Co-signed By: DAA Titration: 03/26/23 14:14 Dose: Infused Documented By: JAGJIT Co-signed By: DAA Titration: 03/26/23 13:50 Dose: 7 mg/hr, 14 mls/hr Documented By: JAGJIT Co-signed By: ALN Titration: 03/26/23 12:00 Dose: 6 mg/hr, 12 mls/hr Documented By: JAGJIT Co-signed By: ALN Titration: 03/26/23 10:00 Dose: 5 mg/hr, 10 mls/hr Documented By: JAGJIT Co-signed By: ALN Titration: 03/26/23 09:00 Dose: 4 mg/hr, 8 mls/hr Documented By: JAGJIT Co-signed By: ALN Titration: 03/26/23 07:05 Dose: 3 mg/hr, 6 mls/hr Documented By: JLPeg Co-signed By: TP Titration: 03/25/23 18:59 Dose: 3 mg/hr, 6 mls/hr Documented By: TP Co-signed By: JAGJIT Titration: 03/25/23 14:22 Dose: 3 mg/hr, 6 mls/hr Documented By: JAGJIT Co-signed By: CMP Titration: 03/25/23 12:00 Dose: 2 mg/hr, 4 mls/hr Documented By: JAGJIT Co-signed By: CMP Admin: 03/25/23 09:48 Dose: 1 mg/hr, 2 mls/hr Documented By: JAGJIT Co-signed By: CMP Fentanyl Citrate (Fentanyl Citrate) 2,500 mcg in 250 mls @ 17.5 mls/hr IV .[id number] [facility]; Protocol Stop: 04/08/23 09:14 Last Admin: 03/29/23 10:56 Dose: 175 mcg/hr, 17.5 mls/hr Documented By: OTILIO Co-signed By: NMS Titration: 03/29/23 10:16 Dose: Infused Documented By: HLK Co-signed By: NMS Titration: 03/29/23 07:03 Dose: 175 mcg/hr, 17.5 mls/hr Documented By: MNPeg Co-signed By: HLK Admin: 03/28/23 19:58 Dose: 175 mcg/hr, 17.5 mls/hr Documented By: MNPeg Co-signed By: ELS Titration: 03/28/23 19:39 Dose: Infused Documented By: MNPeg Co-signed By: ELS Titration: 03/28/23 19:04 Dose: 175 mcg/hr, 17.5 mls/hr Documented By: MNPeg Co-signed By: KJL Titration: 03/28/23 07:09 Dose: 175 mcg/hr, 17.5 mls/hr Documented By: KIN Co-signed By: TP Admin: 03/28/23 05:21 Dose: 175 mcg/hr, 17.5 mls/hr Documented By: TP Co-signed By: ELS Titration: 03/28/23 05:21 Dose: Infused Documented By: TP Co-signed By: ELS Admin: 03/27/23 19:02 Dose: Not Given Documented By: Admin: 03/27/23 19:01 Dose: Not Given Documented By: Titration: 03/27/23 18:54 Dose: 175 mcg/hr, 17.5 mls/hr Documented By: TP Co-signed By: GPF Admin: 03/27/23 17:34 Dose: 175 mcg/hr, 17.5 mls/hr Documented By: GPF Co-signed By: WRS Titration: 03/27/23 17:34 Dose: Infused Documented By: GPF Co-signed By: WRS Titration: 03/27/23 12:44 Dose: 175 mcg/hr, 17.5 mls/hr Documented By: GPF Co-signed By: CAM Titration: 03/27/23 12:19 Dose: 150 mcg/hr, 15 mls/hr Documented By: GPF Co-signed By: CAM Titration: 03/27/23 06:49 Dose: 125 mcg/hr, 12.5 mls/hr Documented By: TP Co-signed By: GPF Admin: 03/27/23 01:52 Dose: 125 mcg/hr, 12.5 mls/hr Documented By: TP Co-signed By: ELS Titration: 03/27/23 01:52 Dose: Infused Documented By: TP Co-signed By: ELS Admin: 03/26/23 19:02 Dose: Not Given Documented By: Titration: 03/26/23 18:59 Dose: 125 mcg/hr, 12.5 mls/hr Documented By: TP Co-signed By: JLM Titration: 03/26/23 15:16 Dose: 125 mcg/hr, 12.5 mls/hr Documented By: JLM Co-signed By: CAM Titration: 03/26/23 13:51 Dose: 150 mcg/hr, 15 mls/hr Documented By: JLM Co-signed By: CAM Titration: 03/26/23 12:00 Dose: 125 mcg/hr, 12.5 mls/hr Documented By: JAGJIT Co-signed By: CAM Admin: 03/26/23 08:31 Dose: 100 mcg/hr, 10 mls/hr Documented By: JAGJIT Co-signed By: AM Titration: 03/26/23 08:31 Dose: Infused Documented By: JAGJIT Co-signed By: AM Titration: 03/26/23 07:05 Dose: 100 mcg/hr, 10 mls/hr Documented By: JAGJIT Co-signed By: TP Titration: 03/25/23 18:59 Dose: 75 mcg/hr, 7.5 mls/hr Documented By: CALLUM Co-signed By: JAGJIT Titration: 03/25/23 14:22 Dose: 75 mcg/hr, 7.5 mls/hr Documented By: JAGJIT Co-signed By: CMP Titration: 03/25/23 12:00 Dose: 50 mcg/hr, 5 mls/hr Documented By: JAGJIT Co-signed By: CMP Admin: 03/25/23 09:48 Dose: 25 mcg/hr, 2.5 mls/hr Documented By: JAGJIT Co-signed By: LEVI Ampicillin Sodium/Sulbactam Sodium 3,000 mg/ Sodium Chloride 100 mls @ 200 mls/hr IV Q6H [facility] Stop: 04/01/23 17:59 Last Admin: 03/29/23 12:12 Dose: 200 mls/hr Documented By: Infusion: 03/29/23 05:46 Dose: Infused Documented By: Admin: 03/29/23 04:58 Dose: 200 mls/hr Documented By: Infusion: 03/29/23 00:02 Dose: Infused Documented By: Admin: 03/28/23 23:16 Dose: 200 mls/hr Documented By: Infusion: 03/28/23 19:24 Dose: Infused Documented By: Admin: 03/28/23 18:47 Dose: 200 mls/hr Documented By: Infusion: 03/28/23 11:39 Dose: Infused Documented By: Admin: 03/28/23 11:09 Dose: 200 mls/hr Documented By: Infusion: 03/28/23 05:54 Dose: Infused Documented By: Admin: 03/28/23 05:24 Dose: 200 mls/hr Documented By: Infusion: 03/28/23 00:59 Dose: Infused Documented By: Admin: 03/28/23 00:29 Dose: 200 mls/hr Documented By: Infusion: 03/27/23 18:48 Dose: Infused Documented By: Admin: 03/27/23 18:18 Dose: 200 mls/hr Documented By: Infusion: 03/27/23 12:45 Dose: Infused Documented By: Admin: 03/27/23 11:52 Dose: 200 mls/hr Documented By: Infusion: 03/27/23 06:23 Dose: Infused Documented By: Admin: 03/27/23 05:53 Dose: 200 mls/hr Documented By: Infusion: 03/27/23 00:15 Dose: Infused Documented By: Admin: 03/26/23 23:45 Dose: 200 mls/hr Documented By: Infusion: 03/26/23 19:03 Dose: Infused Documented By: Admin: 03/26/23 17:31 Dose: 200 mls/hr Documented By: Infusion: 03/26/23 12:17 Dose: Infused Documented By: Admin: 03/26/23 11:31 Dose: 200 mls/hr Documented By: JLPeg Infusion: 03/26/23 05:40 Dose: Infused Documented By: Admin: 03/26/23 05:10 Dose: 200 mls/hr Documented By: Infusion: 03/26/23 00:16 Dose: Infused Documented By: Admin: 03/25/23 23:46 Dose: 200 mls/hr Documented By: Infusion: 03/25/23 19:02 Dose: Infused Documented By: Admin: 03/25/23 18:32 Dose: 200 mls/hr Documented By: JAGJIT Pantoprazole Sodium 40 mg/ (Syringe) 10 mls @ 5 mls/min IV BID@0900,2100 [facility] Stop: 04/25/23 20:59 Last Admin: 03/29/23 08:19 Dose: 5 mls/min Documented By: Admin: 03/28/23 20:06 Dose: 5 mls/min Documented By: Admin: 03/28/23 08:01 Dose: 5 mls/min Documented By: Admin: 03/27/23 20:35 Dose: 5 mls/min Documented By: Admin: 03/27/23 08:25 Dose: 5 mls/min Documented By: Admin: 03/26/23 21:13 Dose: 5 mls/min Documented By: CALLUM Acetaminophen (Ofirmev) 1,000 mg in 100 mls @ 400 mls/hr IV Q6H PRN PRN Reason: Fever Stop: 03/31/23 10:49 Last Infusion: 03/28/23 12:15 Dose: Infused Documented By: Admin: 03/28/23 11:07 Dose: 400 mls/hr Documented By: GOKUL Insulin Aspart (Insulin Aspart Per Unit Charge) 0 units SC Q6 [facility] Stop: 04/25/23 11:59 Last Admin: 03/29/23 12:17 Dose: Not Given Documented By: Admin: 03/29/23 04:59 Dose: Not Given Documented By: Admin: 03/29/23 00:12 Dose: Not Given Documented By: Admin: 03/28/23 18:21 Dose: Not Given Documented By: Admin: 03/28/23 12:17 Dose: Not Given Documented By: Admin: 03/28/23 05:47 Dose: Not Given Documented By: CALLUM Co-signed By: HAIDER Admin: 03/28/23 01:30 EST Dose: Not Given Documented By: Admin: 03/27/23 18:23 Dose: Not Given Documented By: Admin: 03/27/23 11:49 Dose: Not Given Documented By: Admin: 03/27/23 05:54 Dose: Not Given Documented By: TP Co-signed By: HAIDER Admin: 03/26/23 23:46 Dose: Not Given Documented By: TP Co-signed By: HAIDER Admin: 03/26/23 17:40 Dose: Not Given Documented By: Admin: 03/26/23 12:28 Dose: Not Given Documented By: JAGJIT Co-signed By: CAM Midazolam HCl (Midazolam Bolus From Bag) 2 mg IV Q60M PRN PRN Reason: Sedation Stop: 04/24/23 09:11 Last Admin: 03/27/23 12:47 Dose: 2 mg Documented By: JAN Co-signed By: CRYSTAL Admin: 03/27/23 12:20 Dose: 2 mg Documented By: JAN Co-signed By: CRYSTAL Admin: 03/25/23 10:16 Dose: 2 mg Documented By: JAGJIT Co-signed By: LEVI Miscellaneous (Icu Electrolyte Replacement Protocol) 1 each N/A BID@06,18 [facility]; Protocol Stop: 04/02/23 17:59 Last Admin: 03/29/23 04:58 Dose: 1 each Documented By: Admin: 03/28/23 18:21 Dose: Not Given Documented By: Admin: 03/28/23 05:47 Dose: 1 each Documented By: Admin: 03/27/23 18:18 Dose: Not Given Documented By: Admin: 03/27/23 05:53 Dose: 1 each Documented By: Admin: 03/26/23 16:43 Dose: Not Given Documented By: JAGJIT Multi-Ingredient Cream (Artificial Tears Op Oint 3.5 Gm Tube) 1 appln OP Q4H [facility] Stop: 04/24/23 09:14 Last Admin: 03/29/23 08:20 Dose: Not Given Documented By: Admin: 03/29/23 04:15 Dose: 1 appln Documented By: Admin: 03/29/23 00:01 Dose: 1 appln Documented By: Admin: 03/28/23 20:05 Dose: 1 appln Documented By: Admin: 03/28/23 16:59 Dose: 1 appln Documented By: Admin: 03/28/23 13:01 Dose: 1 appln Documented By: Admin: 03/28/23 08:08 Dose: 1 appln Documented By: Admin: 03/28/23 05:25 Dose: 1 appln Documented By: Admin: 03/28/23 01:31 EST Dose: Not Given Documented By: Admin: 03/27/23 20:35 Dose: 1 appln Documented By: Admin: 03/27/23 18:17 Dose: 1 appln Documented By: Admin: 03/27/23 12:45 Dose: 1 appln Documented By: Admin: 03/27/23 08:25 Dose: 1 appln Documented By: Admin: 03/27/23 06:45 Dose: 1 appln Documented By: Admin: 03/27/23 05:53 Dose: Not Given Documented By: Admin: 03/26/23 21:13 Dose: 1 appln Documented By: Admin: 03/26/23 16:42 Dose: 1 appln Documented By: Admin: 03/26/23 11:33 Dose: 1 appln Documented By: Admin: 03/26/23 07:53 Dose: 1 appln Documented By: Admin: 03/26/23 05:15 Dose: 1 appln Documented By: Admin: 03/26/23 03:26 Dose: 1 appln Documented By: Admin: 03/25/23 21:44 Dose: 1 appln Documented By: Admin: 03/25/23 16:39 Dose: 1 appln Documented By: Admin: 03/25/23 15:58 Dose: 1 appln Documented By: Admin: 03/25/23 10:11 Dose: 1 appln Documented By: JAGJIT Multivitamins/Minerals (Multi Vit W/Minerals Liquid 15 Ml Udp) 15 ml NG QAM [facility] Stop: 04/27/23 08:59 Last Admin: 03/29/23 08:19 Dose: 15 ml Documented By: Admin: 03/28/23 08:01 Dose: 15 ml Documented By: KJL Nutritional Formula (Peptamen Intense Vhp 1.0 Bob 1,000 Ml Bag) 1,000 ml OG UD [facility]; Protocol Stop: 04/26/23 10:54 Last Admin: 03/28/23 16:52 Dose: 1,000 ml Documented By: KIN Discontinued Medications Enoxaparin Sodium (Enoxaparin Inj 40 Mg/0.4 Ml Syr) 40 mg SQ QAM [facility] Stop: 04/24/23 11:29 Last Admin: 03/26/23 07:43 Dose: 40 mg Documented By: Admin: 03/25/23 12:39 Dose: 40 mg Documented By: JAGJIT Fentanyl Citrate (Fentanyl Citrate Pf 100 Mcg/2 Ml Vial) 50 mcg IV Q2H PRN PRN Reason: Moderate Pain (4,5,6) on NRS Stop: 04/08/23 01:09 Last Admin: 03/25/23 02:45 Dose: 50 mcg Documented By: Admin: 03/25/23 01:46 Dose: 50 mcg Documented By: DAINA Fentanyl Citrate (Fentanyl Citrate Pf 100 Mcg/2 Ml Vial) 100 mcg IV NOW STA Stop: 03/25/23 08:04 Last Admin: 03/25/23 08:05 Dose: 100 mcg Documented By: JAGJIT Furosemide (Furosemide 40 Mg/4 Ml Vial) 40 mg IV ONE ONE Stop: 03/29/23 08:25 Last Admin: 03/29/23 08:42 Dose: 40 mg Documented By: OTILIO Sodium Chloride (Nss) 1,000 mls @ 999 mls/hr IV .Q1H1M [facility] Stop: 03/25/23 00:15 Last Infusion: 03/25/23 00:22 Dose: Infused Documented By: Admin: 03/24/23 23:30 Dose: 999 mls/hr Documented By: KEI Thiamine HCl 100 mg/ Syringe 10 mls @ 2 mls/min IV NOW STA Stop: 03/25/23 00:18 Last Admin: 03/25/23 00:23 Dose: 2 mls/min Documented By: KEI Lactated Ringer's (Lr) 1,000 mls @ 999 mls/hr IV .Q1H1M ONE Stop: 03/25/23 01:14 Last Infusion: 03/25/23 04:47 Dose: Infused Documented By: Admin: 03/25/23 00:21 Dose: 999 mls/hr Documented By: KEI Pantoprazole Sodium 80 mg/ (Dextrose) 120 mls @ 480 mls/hr IV ONE [facility] Stop: 03/25/23 00:55 Last Infusion: 03/25/23 04:46 Dose: Infused Documented By: Admin: 03/25/23 01:20 Dose: 480 mls/hr Documented By: DAINA Lactated Ringer's (Lr) 1,000 mls @ 999 mls/hr IV .Q1H1M ONE Stop: 03/25/23 02:30 Last Infusion: 03/25/23 04:46 Dose: Infused Documented By: Admin: 03/25/23 01:21 Dose: 999 mls/hr Documented By: DAINA Pantoprazole Sodium 40 mg/ (Dextrose) 100 mls @ 20 mls/hr IV Q5H [facility] Stop: 03/25/23 15:00 Last Infusion: 03/25/23 16:04 Dose: Infused Documented By: Admin: 03/25/23 10:28 Dose: 8 mg/hr, 20 mls/hr Documented By: Infusion: 03/25/23 10:28 Dose: Infused Documented By: Admin: 03/25/23 06:21 Dose: 8 mg/hr, 20 mls/hr Documented By: Infusion: 03/25/23 06:21 Dose: Infused Documented By: Admin: 03/25/23 01:42 Dose: 8 mg/hr, 20 mls/hr Documented By: DAINA Dexmedetomidine/Sodium Chloride (Precedex) 200 mcg in 50 mls @ 26.495 mls/hr IV .Q1H54M [facility]; Protocol Stop: 03/29/23 01:09 Last Admin: 03/25/23 10:08 Dose: Not Given Documented By: Titration: 03/25/23 09:48 Dose: Infused Documented By: Titration: 03/25/23 08:14 Dose: 0.7 mcg/kg/hr, 26.5 mls/hr Documented By: Titration: 03/25/23 07:58 Dose: Infused Documented By: JAGJIT Co-signed By: LEVI Admin: 03/25/23 07:58 Dose: 0.5 mcg/kg/hr, 18.9 mls/hr Documented By: JAGJIT Co-signed By: LEVI Titration: 03/25/23 07:17 Dose: 0.5 mcg/kg/hr, 18.9 mls/hr Documented By: JAGJIT Co-signed By: DAINA Admin: 03/25/23 05:46 Dose: Not Given Documented By: Admin: 03/25/23 05:37 Dose: 0.5 mcg/kg/hr, 18.9 mls/hr Documented By: DAINA Co-signed By: PADMINI Titration: 03/25/23 05:29 Dose: Infused Documented By: DAINA Co-signed By: PADMINI Admin: 03/25/23 03:16 Dose: 0.6 mcg/kg/hr, 22.7 mls/hr Documented By: DAINA Co-signed By: PADMINI Titration: 03/25/23 03:15 Dose: Infused Documented By: DAINA Co-signed By: PADMINI Titration: 03/25/23 01:45 Dose: 0.6 mcg/kg/hr, 22.7 mls/hr Documented By: DAINA Co-signed By: SG Admin: 03/25/23 01:20 Dose: 0.4 mcg/kg/hr, 15.1 mls/hr Documented By: DAINA Co-signed By: ORVILLE Norepinephrine Bitartrate (Levophed/D5w) 4 mg in 250 mls @ 28.388 mls/hr IV .Q8H49M [facility]; Protocol Stop: 04/24/23 01:09 Last Admin: 03/26/23 04:04 Dose: Not Given Documented By: Admin: 03/25/23 19:39 Dose: Not Given Documented By: Admin: 03/25/23 10:29 Dose: Not Given Documented By: Admin: 03/25/23 10:21 Dose: Not Given Documented By: JAGJIT Sodium Bicarbonate 150 meq/ (Dextrose) 1,150 mls @ 125 mls/hr IV .Q9H12M [facility] Stop: 04/24/23 01:09 Last Infusion: 03/25/23 10:09 Dose: Infused Documented By: Admin: 03/25/23 01:42 Dose: 125 mls/hr Documented By: DAINA Lactated Ringer's (Lr) 1,000 mls @ 999 mls/hr IV .Q1H1M ONE Stop: 03/25/23 02:20 Last Admin: 03/25/23 05:36 Dose: Not Given Documented By: DAINA Piperacillin Sod/Tazobactam (Sod 4.5 gm/ Dextrose) 100 mls @ 25 mls/hr IV Q8H [facility]; Protocol Stop: 03/25/23 14:00 Last Infusion: 03/25/23 14:22 Dose: Infused Documented By: Admin: 03/25/23 09:47 Dose: 25 mls/hr Documented By: JAGJIT Piperacillin Sod/Tazobactam (Sod 4.5 gm/ Dextrose) 100 mls @ 200 mls/hr IV NOW [facility]; Protocol Stop: 03/25/23 02:20 Last Infusion: 03/25/23 05:37 Dose: Infused Documented By: Admin: 03/25/23 04:51 Dose: 200 mls/hr Documented By: DAINA Magnesium Sulfate/Dextrose (Magnesium Sulfate / D5w) 1 gm in 100 mls @ 50 mls/hr IV Q2H [facility] Stop: 03/25/23 08:44 Last Infusion: 03/25/23 09:25 Dose: Infused Documented By: Admin: 03/25/23 07:57 Dose: 50 mls/hr Documented By: Infusion: 03/25/23 07:45 Dose: Infused Documented By: Admin: 03/25/23 05:45 Dose: 50 mls/hr Documented By: DAINA Potassium Phosphate 12 mmol/ (Sodium Chloride) 254 mls @ 88 mls/hr IV ONE ONE Stop: 03/25/23 08:53 Last Infusion: 03/25/23 10:09 Dose: Infused Documented By: Admin: 03/25/23 07:19 Dose: 88 mls/hr Documented By: DAINA Calcium Gluconate 1,000 mg/ (Sodium Chloride) 60 mls @ 240 mls/hr IV Q15M [facility] Stop: 03/25/23 06:29 Last Infusion: 03/25/23 06:52 Dose: Infused Documented By: Admin: 03/25/23 06:29 Dose: 240 mls/hr Documented By: Infusion: 03/25/23 06:29 Dose: Infused Documented By: Admin: 03/25/23 06:10 Dose: 240 mls/hr Documented By: DAINA Cisatracurium Besylate 40 mg/ (Dextrose) 100 mls @ 0 mls/hr IV .Q0M [facility]; Protocol Stop: 04/24/23 09:14 Last Titration: 03/27/23 08:35 Dose: Infused Documented By: Admin: 03/26/23 19:04 Dose: Not Given Documented By: Admin: 03/26/23 19:04 Dose: Not Given Documented By: Admin: 03/26/23 19:04 Dose: Not Given Documented By: Admin: 03/26/23 19:03 Dose: Not Given Documented By: Admin: 03/26/23 19:03 Dose: Not Given Documented By: Admin: 03/26/23 13:21 Dose: Not Given Documented By: Admin: 03/26/23 13:21 Dose: Not Given Documented By: Titration: 03/26/23 13:00 Dose: 0 mcg/kg/min, 0 mls/hr Documented By: Titration: 03/26/23 13:00 Dose: 1 mcg/kg/min, 10.6 mls/hr Documented By: Titration: 03/26/23 12:28 Dose: 2 mcg/kg/min, 21.2 mls/hr Documented By: Admin: 03/26/23 11:31 Dose: 3 mcg/kg/min, 31.8 mls/hr Documented By: JAGJIT Co-signed By: CAM Titration: 03/26/23 11:31 Dose: Infused Documented By: JAGJIT Co-signed By: CAM Admin: 03/26/23 08:30 Dose: 3 mcg/kg/min, 31.8 mls/hr Documented By: JAGJIT Co-signed By: AM Titration: 03/26/23 08:19 Dose: Infused Documented By: JAGJIT Co-signed By: AM Titration: 03/26/23 07:05 Dose: 3 mcg/kg/min, 31.8 mls/hr Documented By: JAGJIT Co-signed By: TP Admin: 03/26/23 05:10 Dose: 3 mcg/kg/min, 31.8 mls/hr Documented By: TP Co-signed By: ELS Titration: 03/26/23 05:10 Dose: Infused Documented By: TP Co-signed By: ELS Admin: 03/26/23 03:25 Dose: 3 mcg/kg/min, 31.8 mls/hr Documented By: TP Co-signed By: ELS Titration: 03/26/23 02:07 Dose: Infused Documented By: TP Co-signed By: ELS Admin: 03/25/23 22:58 Dose: 3 mcg/kg/min, 31.8 mls/hr Documented By: TP Co-signed By: ELS Titration: 03/25/23 22:48 Dose: Infused Documented By: TP Co-signed By: ELS Admin: 03/25/23 20:21 Dose: Not Given Documented By: Admin: 03/25/23 19:39 Dose: 3 mcg/kg/min, 31.8 mls/hr Documented By: TP Co-signed By: ELS Titration: 03/25/23 19:39 Dose: Infused Documented By: TP Co-signed By: ELS Titration: 03/25/23 18:59 Dose: 3 mcg/kg/min, 31.8 mls/hr Documented By: CALLUM Co-signed By: JAGJIT Titration: 03/25/23 18:14 Dose: 3 mcg/kg/min, 31.8 mls/hr Documented By: JLPeg Admin: 03/25/23 15:58 Dose: 2 mcg/kg/min, 21.2 mls/hr Documented By: JAGJIT Co-signed By: GUDELIA Titration: 03/25/23 15:58 Dose: Infused Documented By: JAGJIT Co-signed By: GUDELIA Titration: 03/25/23 14:20 Dose: 2 mcg/kg/min, 21.2 mls/hr Documented By: Admin: 03/25/23 09:47 Dose: 1 mcg/kg/min, 10.6 mls/hr Documented By: JAGJIT Co-signed By: LEVI Parenteral Electrolytes (Plasma-Lyte A Ph 7.4) 1,000 mls @ 100 mls/hr IV .Q10H KIKA Stop: 04/24/23 09:44 Last Infusion: 03/29/23 08:38 Dose: Infused Documented By: Admin: 03/29/23 03:39 Dose: 100 mls/hr Documented By: Infusion: 03/29/23 02:59 Dose: Infused Documented By: Admin: 03/28/23 16:59 Dose: 100 mls/hr Documented By: Infusion: 03/28/23 15:29 Dose: Infused Documented By: Admin: 03/28/23 05:29 Dose: 100 mls/hr Documented By: Infusion: 03/28/23 05:29 Dose: Infused Documented By: Admin: 03/27/23 20:36 Dose: 100 mls/hr Documented By: Infusion: 03/27/23 20:36 Dose: Infused Documented By: Admin: 03/27/23 11:51 Dose: 100 mls/hr Documented By: Infusion: 03/27/23 11:51 Dose: Infused Documented By: Admin: 03/27/23 05:14 Dose: 100 mls/hr Documented By: Infusion: 03/27/23 05:14 Dose: Infused Documented By: Admin: 03/26/23 19:27 Dose: 100 mls/hr Documented By: Infusion: 03/26/23 15:10 Dose: Infused Documented By: Admin: 03/26/23 05:10 Dose: 100 mls/hr Documented By: Infusion: 03/26/23 05:10 Dose: Infused Documented By: Admin: 03/25/23 19:39 Dose: 100 mls/hr Documented By: Infusion: 03/25/23 19:39 Dose: Infused Documented By: Admin: 03/25/23 10:13 Dose: 100 mls/hr Documented By: JAGJIT Pantoprazole Sodium 80 mg/ (Dextrose) 120 mls @ 480 mls/hr IV Q12 KIKA Stop: 04/24/23 20:59 Last Infusion: 03/26/23 08:15 Dose: Infused Documented By: Admin: 03/26/23 07:53 Dose: 480 mls/hr Documented By: Admin: 03/25/23 19:39 Dose: Not Given Documented By: TP Potassium Chloride (K Tyler / Wtr) 10 meq in 100 mls @ 100 mls/hr IV Q1H KIKA Stop: 03/26/23 09:29 Last Infusion: 03/26/23 12:18 Dose: Infused Documented By: Admin: 03/26/23 10:53 Dose: 100 mls/hr Documented By: Infusion: 03/26/23 10:48 Dose: Infused Documented By: Admin: 03/26/23 09:48 Dose: 100 mls/hr Documented By: Infusion: 03/26/23 08:43 Dose: Infused Documented By: Admin: 03/26/23 07:43 Dose: 100 mls/hr Documented By: Infusion: 03/26/23 07:28 Dose: Infused Documented By: Admin: 03/26/23 06:28 Dose: 100 mls/hr Documented By: TP Propofol (Diprivan) 1,000 mg in 100 mls @ 26.838 mls/hr IV .Q3H44M KIKA; Protocol Stop: 03/29/23 13:59 Last Titration: 03/29/23 09:24 Dose: Infused Documented By: Admin: 03/29/23 08:20 Dose: 30 mcg/kg/min, 26.8 mls/hr Documented By: OTILIO Co-signed By: ALY Titration: 03/29/23 08:20 Dose: Infused Documented By: OTILIO Co-signed By: ALY Titration: 03/29/23 07:03 Dose: 30 mcg/kg/min, 26.8 mls/hr Documented By: SANDRA Co-signed By: OTILIO Admin: 03/29/23 04:58 Dose: 30 mcg/kg/min, 26.8 mls/hr Documented By: MNPeg Co-signed By: HAIDER Titration: 03/29/23 04:58 Dose: Infused Documented By: MNPeg Co-signed By: HAIDER Admin: 03/29/23 01:21 Dose: 30 mcg/kg/min, 26.8 mls/hr Documented By: SANDRA Co-signed By: HAIDER Titration: 03/29/23 01:21 Dose: Infused Documented By: MNPeg Co-signed By: HAIDER Admin: 03/28/23 21:46 Dose: 30 mcg/kg/min, 26.8 mls/hr Documented By: MNPeg Co-signed By: HAIDER Titration: 03/28/23 21:46 Dose: Infused Documented By: MNPeg Co-signed By: HAIDER Titration: 03/28/23 19:04 Dose: 30 mcg/kg/min, 26.8 mls/hr Documented By: SANDRA Co-signed By: GOKUL Admin: 03/28/23 18:47 Dose: 30 mcg/kg/min, 26.8 mls/hr Documented By: KIN Co-signed By: GOKUL Titration: 03/28/23 18:31 Dose: Infused Documented By: KIN Co-signed By: GOKUL Admin: 03/28/23 14:47 Dose: 30 mcg/kg/min, 26.8 mls/hr Documented By: KIN Co-signed By: GOKUL Titration: 03/28/23 14:47 Dose: Infused Documented By: KIN Co-signed By: GOKUL Admin: 03/28/23 11:07 Dose: 30 mcg/kg/min, 26.8 mls/hr Documented By: GOKUL Co-signed By: KIN Titration: 03/28/23 11:07 Dose: Infused Documented By: GOKUL Co-signed By: KIN Admin: 03/28/23 07:59 Dose: 30 mcg/kg/min, 26.8 mls/hr Documented By: GOKUL Co-signed By: KIN Titration: 03/28/23 07:17 Dose: Infused Documented By: KJL Co-signed By: KIN Titration: 03/28/23 07:09 Dose: 30 mcg/kg/min, 26.8 mls/hr Documented By: KIN Co-signed By: TP Admin: 03/28/23 03:33 Dose: 30 mcg/kg/min, 26.8 mls/hr Documented By: TP Co-signed By: ELS Titration: 03/28/23 03:15 Dose: Infused Documented By: TP Co-signed By: ELS Admin: 03/28/23 00:31 Dose: 30 mcg/kg/min, 26.8 mls/hr Documented By: TP Co-signed By: ELS Titration: 03/28/23 00:17 Dose: Infused Documented By: TP Co-signed By: ELS Admin: 03/27/23 20:33 Dose: 30 mcg/kg/min, 26.8 mls/hr Documented By: TP Co-signed By: CP Titration: 03/27/23 20:17 Dose: Infused Documented By: TP Co-signed By: CP Admin: 03/27/23 19:03 Dose: Not Given Documented By: Admin: 03/27/23 19:02 Dose: Not Given Documented By: Titration: 03/27/23 18:54 Dose: 30 mcg/kg/min, 26.8 mls/hr Documented By: TP Co-signed By: GPF Admin: 03/27/23 17:24 Dose: Not Given Documented By: Admin: 03/27/23 17:24 Dose: Not Given Documented By: Admin: 03/27/23 17:23 Dose: Not Given Documented By: Titration: 03/27/23 17:22 Dose: 30 mcg/kg/min, 26.8 mls/hr Documented By: Admin: 03/27/23 16:40 Dose: 35 mcg/kg/min, 31.3 mls/hr Documented By: GPF Co-signed By: WRS Titration: 03/27/23 15:56 Dose: Infused Documented By: GPF Co-signed By: WRS Titration: 03/27/23 12:44 Dose: Infused Documented By: GPF Co-signed By: CAM Admin: 03/27/23 12:44 Dose: 35 mcg/kg/min, 31.3 mls/hr Documented By: GPF Co-signed By: CAM Titration: 03/27/23 12:19 Dose: 30 mcg/kg/min, 26.8 mls/hr Documented By: Admin: 03/27/23 08:24 Dose: 25 mcg/kg/min, 22.4 mls/hr Documented By: GPF Co-signed By: WRS Titration: 03/27/23 08:24 Dose: Infused Documented By: GPF Co-signed By: WRS Titration: 03/27/23 06:49 Dose: 25 mcg/kg/min, 22.4 mls/hr Documented By: TP Co-signed By: GPF Admin: 03/27/23 05:52 Dose: 25 mcg/kg/min, 22.4 mls/hr Documented By: TP Co-signed By: ELS Titration: 03/27/23 05:52 Dose: Infused Documented By: TP Co-signed By: ELS Admin: 03/27/23 01:52 Dose: 25 mcg/kg/min, 22.4 mls/hr Documented By: TP Co-signed By: ELS Titration: 03/26/23 23:56 Dose: Infused Documented By: TP Co-signed By: ELS Admin: 03/26/23 19:28 Dose: 25 mcg/kg/min, 22.4 mls/hr Documented By: TP Co-signed By: ELS Titration: 03/26/23 19:28 Dose: Infused Documented By: TP Co-signed By: ELS Titration: 03/26/23 18:59 Dose: 25 mcg/kg/min, 22.4 mls/hr Documented By: TP Co-signed By: JAGJIT Admin: 03/26/23 14:13 Dose: 20 mcg/kg/min, 17.9 mls/hr Documented By: JLPeg Co-signed By: STUART Potassium Phosphate 30 mmol/ (Sodium Chloride) 510 mls @ 88 mls/hr IV ONE ONE Stop: 03/27/23 10:47 Last Infusion: 03/27/23 11:56 Dose: Infused Documented By: Admin: 03/27/23 05:16 Dose: 88 mls/hr Documented By: TP Potassium Phosphate 15 mmol/ (Sodium Chloride) 255 mls @ 88 mls/hr IV 0845 ONE Stop: 03/27/23 11:38 Last Infusion: 03/27/23 14:53 Dose: Infused Documented By: Admin: 03/27/23 10:50 Dose: 88 mls/hr Documented By: JAN Sodium Phosphate 12 mmol/ (Sodium Chloride) 254 mls @ 127 mls/hr IV 1400 ONE Stop: 03/27/23 15:59 Last Infusion: 03/27/23 18:09 Dose: Infused Documented By: Admin: 03/27/23 14:57 Dose: 127 mls/hr Documented By: GPF Magnesium Sulfate/Dextrose (Magnesium Sulfate / D5w) 1 gm in 100 mls @ 50 mls/hr IV ONE ONE Stop: 03/28/23 07:44 Last Infusion: 03/28/23 08:23 Dose: Infused Documented By: Admin: 03/28/23 06:23 Dose: 50 mls/hr Documented By: CALLUM Magnesium Sulfate/Dextrose (Magnesium Sulfate / D5w) 1 gm in 100 mls @ 50 mls/hr IV Q2H KIKA Stop: 03/29/23 09:14 Last Infusion: 03/29/23 10:37 Dose: Infused Documented By: Admin: 03/29/23 07:53 Dose: 50 mls/hr Documented By: Infusion: 03/29/23 07:46 Dose: Infused Documented By: Admin: 03/29/23 05:37 Dose: 50 mls/hr Documented By: SANDRA Potassium Chloride (K Tyler / Wtr) 20 meq in 100 mls @ 50 mls/hr IV Q2H KIKA Stop: 03/29/23 09:14 Last Infusion: 03/29/23 10:37 Dose: Infused Documented By: Admin: 03/29/23 07:53 Dose: 50 mls/hr Documented By: Infusion: 03/29/23 07:46 Dose: Infused Documented By: Admin: 03/29/23 05:37 Dose: 50 mls/hr Documented By: SANDRA Methylprednisolone 80 mg/ (Syringe) 1.28 mls @ 1.5 mls/min IV Q8 KIKA Stop: 04/28/23 09:59 Last Admin: 03/29/23 11:16 Dose: 1.5 mls/min Documented By: OTILIO Ioversol (Optiray 320 500ml) 125 ml IV ONCE ONE Stop: 03/24/23 23:56 Last Admin: 03/24/23 23:55 Dose: 111 ml Documented By: CT Midazolam HCl (Midazolam Hcl 1 Mg/Ml 2ml Vial) Confirm Administered Dose 2 mg .ROUTE .STK-MED ONE Stop: 03/25/23 08:00 Last Admin: 03/25/23 08:13 Dose: Not Given Documented By: JAGJIT Midazolam HCl (Midazolam Hcl 1 Mg/Ml 2ml Vial) Confirm Administered Dose 2 mg .ROUTE .STK-MED ONE Stop: 03/25/23 08:05 Last Admin: 03/25/23 08:13 Dose: Not Given Documented By: JAGJIT Midazolam HCl (Midazolam Hcl 1 Mg/Ml 2ml Vial) 4 mg IV NOW STA Stop: 03/25/23 08:09 Last Admin: 03/25/23 08:12 Dose: 4 mg Documented By: JAGJIT Miscellaneous (Rapid Sequence Induction Bag) Confirm Administered Dose 1 each N/A .STK-MED ONE Stop: 03/24/23 22:57 Last Admin: 03/25/23 00:23 Dose: Not Given Documented By: KEI Boo (Icu Protocol For Hyperglycemia) 1 each N/A ACHS KIKA Stop: 03/27/23 07:29 Last Admin: 03/26/23 08:15 Dose: 1 each Documented By: Admin: 03/25/23 21:44 Dose: Not Given Documented By: Admin: 03/25/23 16:39 Dose: Not Given Documented By: Admin: 03/25/23 12:42 Dose: 1 each Documented By: Admin: 03/25/23 10:26 Dose: 1 each Documented By: JAGJIT Fariaaneous (Stat Iv Infusion Titration Per Protocol) 1 each N/A NOW STA Stop: 03/25/23 09:13 Last Admin: 03/25/23 16:04 Dose: 1 each Documented By: JAGJIT Nutritional Formula (Peptamen Intense Vhp 1.0 Bob 1,000 Ml Bag) 0 ml OG UD KIKA; Protocol Stop: 04/25/23 10:59 Last Admin: 03/26/23 16:41 Dose: 1,000 ml Documented By: JAGJIT Potassium Chloride (Potassium Chloride 20 Meq/15 Ml Udc) 40 meq PO NOW STA Stop: 03/28/23 05:35 Last Admin: 03/28/23 06:22 Dose: 40 meq Documented By: TP Propofol (Propofol Bolus From Bag) 20 mg IV Q5M PRN PRN Reason: Sedation Stop: 03/29/23 13:57 Last Admin: 03/29/23 05:00 Dose: 20 mg Documented By: SANDRA Co-signed By: HAIDER Admin: 03/29/23 04:52 Dose: 20 mg Documented By: SANDRA Co-signed By: HAIDER Admin: 03/29/23 01:38 Dose: 20 mg Documented By: SANDRA Co-signed By: HAIDER Admin: 03/27/23 12:20 Dose: 20 mg Documented By: JAN Co-signed By: CRYSTAL Sodium Bicarbonate (Sodium Bicarb 8.4% Inj 50 Meq/50 Ml Syr) 50 meq IV NOW STA Stop: 03/25/23 00:28 Last Admin: 03/25/23 00:32 Dose: 50 meq Documented By: ASW Sodium Phosphate (Sodium Phosphate 3 Mmol/1 Ml Infusion) 12 mmol IV NOW STA Stop: 03/27/23 08:24 Last Admin: 03/27/23 10:50 Dose: Not Given Documented By: GPF Sterile Water (Tube Feeding Water Flush) 60 ml GT Q4 KIKA Stop: 04/25/23 10:59 Last Admin: 03/29/23 07:53 Dose: 60 ml Documented By: Admin: 03/29/23 03:40 Dose: 60 ml Documented By: Admin: 03/28/23 23:17 Dose: 60 ml Documented By: Admin: 03/28/23 20:06 Dose: 60 ml Documented By: Admin: 03/28/23 16:52 Dose: 60 ml Documented By: Admin: 03/28/23 11:08 Dose: 60 ml Documented By: Admin: 03/28/23 08:00 Dose: 60 ml Documented By: Admin: 03/28/23 03:34 Dose: 60 ml Documented By: Admin: 03/28/23 00:29 Dose: 60 ml Documented By: Admin: 03/27/23 20:33 Dose: 60 ml Documented By: Admin: 03/27/23 16:40 Dose: 60 ml Documented By: Admin: 03/27/23 12:18 Dose: 60 ml Documented By: Admin: 03/27/23 08:24 Dose: 60 ml Documented By: Admin: 03/27/23 05:15 Dose: 60 ml Documented By: Admin: 03/26/23 23:47 Dose: 60 ml Documented By: Admin: 03/26/23 21:12 Dose: 60 ml Documented By: Admin: 03/26/23 16:44 Dose: Not Given Documented By: Admin: 03/26/23 16:42 Dose: 60 ml Documented By: JAGJIT Vecuronium Overton (Vecuronium Overton 10 Mg Vial) 10 mg IV NOW STA Stop: 03/25/23 08:04 Last Admin: 03/25/23 08:11 Dose: 10 mg Documented By: JAGJIT Co-signed By: LEVI Vecuronium Overton (Vecuronium Overton 10 Mg Vial) Confirm Administered Dose 10 mg IV .STK-MED ONE Stop: 03/25/23 08:05 Last Admin: 03/25/23 08:13 Dose: Not Given Documented By: JAGJIT Vecuronium Overton (Vecuronium Overton 10 Mg Vial) 6 mg IV TODAY@0915 [facility] Stop: 03/25/23 09:16 Last Admin: 03/25/23 10:27 Dose: 6 mg Documented By: JAGJIT Co-signed By: GUDELIA Vecuronium Overton (Vecuronium Overton 10 Mg Vial) Confirm Administered Dose 10 mg IV .STK-MED ONE Stop: 03/26/23 13:42 Last Admin: 03/26/23 13:47 Dose: 10 mg Documented By: JAGJIT Co-signed By: HERNAN Description This is a 21 electrode EEG with a single channel dedicated to limited EKG. The electrodes were placed in accordance with the International 10-20 system. Interpretation The predominant background activity consists of a very irregular 6 hertz activity of up to 100 mV in amplitude,seen symmetrically distributed over the posterior head regions bilaterally, spreading anteriorly bilaterally diffusely in all head regions. This activity has no attenuation with alerting procedures Photic stimulation was performed and elicited no change in the background activity and no abnormal responses were seen. Hyperventilation was not performed. The amplitude was quite variable with this irregular 6 hertz activity being very high for several seconds followed by a low-amplitude for a second or so, alternating throughout the recording. On some occasions there was a high amplitude two or 3 hertz generalized rhythm. On very few occasions some very regular 10 hertz fast activity was seen in all head regions for less than one second. No focal abnormalities or potentially epileptogenic discharges were noted throughout the recording. In summary, this study is quite abnormal showing generalized, irregular mixed amplitude slow activity. There were no focal abnormalities or potentially epileptogenic discharges seen. Clinical Correlation This irregular slow activity correlates with a severe encephalopathy, which could be due to a wide variety of causes including toxic, hypoxic/ischemic, or metabolic. The absence of potentially epileptogenic activity does not exclude a seizure disorder, since interictally, EEGs can be normal. Clinical correlation is required.
[2023-03-29] MEDS: risperiDONE 0.5 MG TABLET GT SCH ×2 (13:37→20:36)
[2023-03-29] MEDS: dexMEDEtomidine 200 MCG/50 ML BAG IV SCH ×7 (13:40→23:57)
[2023-03-29 13:53] LABS: iSTAT Arterial Blood Gas HCO3 28 meg/L (19-24); iSTAT Arterial Blood Gas pCO2 45 mmHg (35-46); iSTAT Arterial Blood Gas pO2 64 mmHg (80-95); iSTAT Carbon Dioxide 29 mmol/L (24-31); iSTAT Hematocrit 31 % (42-52); iSTAT Hemoglobin 10.5 g/dl (14.0-18.0); iSTAT Potassium 4.1 mmol/L (3.3-5.0); iSTAT Sodium 135 mmol/L (135-144)
[2023-03-29] MEDS: methylPREDNISolone 60 MG in SYRINGE 0 ML IV SCH ×2 (16:08→20:37)
[2023-03-29] MEDS: PEPTAMEN INTENSE VHP 1.0 CAL 1,000 ML BAG OG SCH (16:08)
--- NOTE | 2023-03-29 16:31 | Hospitalist Progress Note ---
Date of Service March 29, 2023 Assessment & Plan (1) Hypotension: Plan: Acute metabolic encephalopathy Multifactorial: Toxic and metabolic: Drug overdose, alcohol intoxication, Anoxia Acute respiratory failure with hypoxia and Hypercarbia Suicide Attempt ARDS Aspiration pneumonia DD: Possible [place] pneumonia --Head CT: Normal head/brain CT. --EEG:study is quite abnormal showing generalized, irregular mixed amplitude slow activity. There were no focal abnormalities or potentially epileptogenic discharges seen. S/P Intubation Patient underwent flexible bronchoscopy with bronchial washings from right lung 03/29/23 Atracurium discontinued Appreciate critical care input Vent management as per ICU team Psychiatry following Tolerating tube feeds Patient's family requesting psychiatry from [facility] to discuss with patient's primary psychiatrist when appropriate to coordinate care Did not tolerate pressure support 03/29 Started on Solu-Medrol Aspiration pneumonia --CXR:Bilateral airspace opacities most pronounced on the left S/P bronchoscopy on 03/26/23 Aspiration precautions Currently on Unasyn Bronchial cultures pending Hypophosphatemia Hypocalcemia Hypokalemia Replete electrolytes as needed Monitor Bloody emesis Suspected upper GI bleed H/O NSAID esophagitis DD: Esophagitis, peptic ulcer disease, gastritis etc GI on board Continue IV Protonix Hb drop likely dilational Monitor CBC ADHD Schizoaffective disorder Past suicidal ideation One-to-one observation, suicide precautions Hold all antipsychotic medications for now Cannot leave AMA, [address] Lamictal, Klonopin restarted per ICU team Combined respiratory/metabolic acidosis Lactic acidosis Lactic acid levels trended down Received IV bicarbonate ANUEL H/O CPAP intolerance H/O Congenital nasal septal deviation S/P surgery per record DVT Px: SCDs Lovenox SQ Code Status Full code Admission and Anticipated Discharge Date Admission Date: March 25, 2023 Subjective Patient is seen and examined at bedside Remains sedated and Intubated Discussed with patient's family at bedside Patient underwent flexible bronchoscopy with bronchial washings from right lung today Low-grade fever this morning Review of Systems Review of Systems: All systems reviewed & are unremarkable except as noted in Subjective Physical Exam Physical Exam: Physical Exam: Vitals signs as noted above General Appearance:Obese, no apparent distress,+Intubated Head: normocephalic, Atraumatic Eyes: normal inspection, EOMI Neck: supple, Trachea midline Respiratory/Chest: Normal breath sounds, CTA, No accessory muscle use Cardiovascular: S1, S2, No murmur Abdomen/GI:Soft, Non tender, Bowel sounds present Extremities/Musculoskeletal:normal inspection, no edema Neurologic/Psych:Unable to perform neurological exam Skin: normal color, warm Results & Data Results & Data Vital Signs (Past 12 Hours) Vital Signs Temp Pulse Resp BP Pulse Ox O2 Del Method FiO2 03/29/23 13:30 82 22 90 55 03/29/23 13:00 37.4 C 99 H 31 H 127/84 89 L Mechanical Vent 55 03/29/23 12:31 37.5 C 111 H 31 H 141/81 H 90 Mechanical Vent 55 03/29/23 11:31 37.5 C 86 19 107/59 L 88 L 03/29/23 11:01 37.6 C H 85 19 115/61 89 L Mechanical Vent 50 03/29/23 10:40 Mechanical Vent 03/29/23 10:10 88 22 94 50 03/29/23 10:01 37.7 C H 94 H 23 118/62 92 Mechanical Vent 100 03/29/23 10:00 37.7 C H 92 H 22 121/92 92 Mechanical Vent 100 03/29/23 09:31 37.6 C H 102 H 31 H 149/99 H 91 Mechanical Vent 35 03/29/23 09:00 37.6 C H 79 22 122/67 88 L Mechanical Vent 35 03/29/23 08:40 22 03/29/23 08:31 37.5 C 89 16 119/71 87 L Mechanical Vent 35 03/29/23 08:00 37.5 C 85 18 133/77 88 L Mechanical Vent 35 03/29/23 07:31 37.3 C 76 16 113/71 92 Mechanical Vent 30 03/29/23 07:30 77 18 92 40 03/29/23 07:00 37.3 C 76 18 115/67 93 Mechanical Vent 40 03/29/23 06:31 37.5 C 75 16 93 Mechanical Vent 40 03/29/23 06:31 112/70 03/29/23 06:01 116/70 03/29/23 06:01 37.7 C H 77 16 92 Mechanical Vent 40 03/29/23 05:31 111/67 03/29/23 05:31 82 16 89 L Mechanical Vent 30 03/29/23 05:01 120/79 03/29/23 05:00 37.6 C H 73 18 93 Mechanical Vent 30 03/29/23 04:31 116/67 03/29/23 04:31 37.7 C H 77 16 91 Mechanical Vent 30 Laboratory Results Short CBC 03/29/23 Range/Units 03:49 WBC 7.50 (4.8-10.8) K/ul Hgb 9.0 L (14.0-18.0) g/dl Hct 29.1 L (42.0-52.0) % Plt Count 328 (130-400) K/uL BMP 03/29/23 03/29/23 03:49 12:17 Sodium 135 L 135 L Potassium 3.8 4.0 Chloride 103 100 Carbon Dioxide 27 29 BUN 13 13 Creatinine 0.79 0.80 Glucose 84 114 H Calcium 8.2 L 8.4 L
[2023-03-29] MEDS: MIDAZOLAM BOLUS FROM BAG IV PRN ×4 (20:31→23:24)
[2023-03-29] MEDS: MAGNESIUM OXIDE 400 MG TAB NG SCH ×2 (20:32→21:20)
[2023-03-29] MEDS ORDERED: bisacodyL 10 MG SUPP PR STA (20:48)
[2023-03-29] MEDS: DOCUSATE SODIUM SYRUP 100 MG/10 ML UDC PO SCH (23:16)
[2023-03-30] MEDS: INSULIN ASPART PER UNIT CHARGE SC SCH ×4 (00:18→19:14)
[2023-03-30] MEDS: UNASYN 3000MG / NS q6h IV SCH ×5 (00:21→23:39)
[2023-03-30] MEDS: ARTIFICIAL TEARS OP OINT 3.5 GM TUBE OP SCH ×7 (00:21→22:57)
[2023-03-30] MEDS: dexMEDEtomidine 200 MCG/50 ML BAG IV SCH ×18 (01:59→23:39)
[2023-03-30] MEDS: fentaNYL citrate 2,500 MCG/250 ML BAG IV SCH ×4 (02:04→19:57)
[2023-03-30] MEDS: MIDAZOLAM BOLUS FROM BAG IV PRN ×6 (02:22→19:48)
[2023-03-30] MEDS: fentaNYL BOLUS from BAG IV PRN ×6 (02:22→20:58)
[2023-03-30] MEDS: MIDAZOLAM HCL 125 MG/250 ML BAG IV SCH ×2 (02:57→15:07)
[2023-03-30 03:06] LABS: iSTAT Allen Test Pass; iSTAT Art Bld Gas pCO2 Correct 44 mmHg (35-46); iSTAT Art Bld Gas pH Corrected 7.396 (7.35-7.45); iSTAT Arterial Blood Gas HCO3 27 meg/L (19-24); iSTAT Arterial Blood Gas pCO2 44 mmHg (35-46); iSTAT Arterial Blood Gas pO2 70 mmHg (80-95); iSTAT Arterial Blood Gas pO2 C 70; iSTAT Carbon Dioxide 28 mmol/L (24-31); iSTAT FiO2 50 %; iSTAT Hematocrit 32 % (42-52); iSTAT Hemoglobin 10.9 g/dl (14.0-18.0); iSTAT Potassium 4.5 mmol/L (3.3-5.0); iSTAT Site L Radial; iSTAT Sodium 136 mmol/L (135-144)
[2023-03-30 04:14] LABS: Basophils # (auto) 0.01 K/uL (0.00-0.20); Basophils % (auto) 0.1 %; Hemoglobin 10.5 g/dl (14.0-18.0); Immature Granulocytes # (auto) 0.08 K/uL (0.01-0.20); Immature Granulocytes % (auto) 0.9 %; Lymphocytes # (auto) 0.62 K/uL (1.20-3.40); Lymphocytes % (auto) 7.1 %; Mean Corpuscular Hemoglobin 25.3 pg (25.0-34.0); Mean Corpuscular Hgb Conc 31.8 g/dL (32.0-36.0); Mean Corpuscular Volume 79.5 fL (80.0-100.0); Mean Platelet Volume 9.7 fL (9.4-12.4); Monocytes # (auto) 0.23 K/uL (0.11-0.59); Monocytes % (auto) 2.6 %; Neutrophils # (auto) 7.75 K/uL (1.40-6.50); Neutrophils % (auto) 89.3 %; Platelet Count 376 K/uL (130-400); RDW Coefficient of Variation 17.5 % (11.5-14.5); RDW Standard Deviation 49.2 fL (36.4-46.3); Red Blood Count 4.15 M/uL (4.70-6.10); White Blood Count 8.69 K/ul (4.8-10.8)
[2023-03-30 04:29] LABS: Anion Gap 3 (3-11); BUN Creatinine Ratio 26.5 (10-20); Blood Urea Nitrogen 18 mg/dl (6-23); Calcium 8.9 mg/dl (8.6-10.3); Carbon Dioxide 28 mmol/L (21-32); Chloride 103 mmol/L (98-107); Creatinine Clr Calc Pharmacy 245.7 ml/min; Est GFR (African American) > 150.0 ml/min; Est GFR (Non-African American) 132.7 ml/min; Glucose 151 mg/dl (70-99(Fasting)); Magnesium 2.1 mg/dl (1.7-2.4); Phosphorus 3.5 mg/dl (2.5-4.9); Potassium 4.4 mmol/L (3.5-5.1); Sodium 134 mmol/L (136-145)
[2023-03-30] MEDS ORDERED: VECURONIUM BROMIDE 10 MG VIAL IV STA (04:45)
[2023-03-30] MEDS ORDERED: VECURONIUM BROMIDE 10 MG VIAL IV ONE (04:45)
[2023-03-30] MEDS: ICU ELECTROLYTE REPLACEMENT PROTOCOL SCH ×3 (05:48→19:09)
[2023-03-30] MEDS ORDERED: FUROSEMIDE 40 MG/4 ML VIAL IV ONE ×2 (07:06)
--- NOTE | 2023-03-30 07:58 | Critical Care Progress Note ---
Date of Service March 30, 2023 Assessment & Plan (1) Overdose by ingestion: (2) Alcohol intoxication: (3) Respiratory failure: (4) Rheumatoid arthritis: Plan Reason Critically Ill: 27 YOM admitted to ICU post intentional overdose via ingestion, now intubated and mechanically ventilated. Ingestion of Ativan and ETOH Neuro: Acute encephalopathy upon presentation in ED -Suspect toxic/metabolic: Multifactorial -Consider surveillance CTHvs MRI to assess if he doesn't respond to decreased sedation -Acute alcohol intoxication on presentation: Resolved RASS goal (-1), wean Versed first,continue scheduled Klonipin Bradycardia with high dose precedex, will continue and increase dose as able Continue Risperdal PO, start oxycodone 10mg TID, wean fentanyl as able Suicide attempt Schizoaffective disorder Major depressive episode -302 for suicide attempt when medically cleared, reviewed psych liaison notes -Psych meds d/w patient's psychiatrist, OK with Risperdal and will reassess as OP -Caplyta nonformulary holding at present time SAT/SBT as clinical condition allows Resp: Severe acute respiratory distress syndrome secondary to aspiration of gastric contents into the airway -SpO2 goal 90-92% -Vt decreased to patient's 6mL/kg per [facility] protocol -Pronation therapy finished: 03/26 Aspiration into bronchial tree -Bronchoscopy performed 03/26, 03/29 Respiratory driven protocol, no need for frequent ABG, follow pulse oximeter Redose Lasix CV: Echo report from October 2022 reviewed, WNL CPR performed in field MAP goal 65mmHg Fluids/Renal: Replete electrolytes as indicated Patient is 10L+, start scheduled Lasix 40mg BID Linares for accurate I/Os ID: Coverage for aspiration pneumonia -Unasyn day #6 -BAL no growth, rare GPC, eosinophils present - repeat studies sent for cx, gs, fungitell Continue Solumedrol 80mg Q8H GI/Nutrition: Diet: TF at goal -History of esophagitis: October 2022 SUP: PPI BID Heme: Anemia: Stable Leukocytosis: Improved DVT prophylaxis: Lovenox and SCDs Endocrine: ICU hyperglycemia protocol, BG 140-180 per [facility]M guidelines TSH within normal limits on February 2023 Vascular access: LIJ CVC: Day #5, obtain adequate peripheral access within 2 days and remove Arterial line: Day #5 Linares: Day #5 Code Status: Full code Disposition: ICU CRITICAL CARE TIME - I have personally spent 40 minutes of critical care time in the direct management of this patient. This is a life/limb threatening event. This includes time spent evaluating patient, direct bedside care, chart review, placing orders, interpretation of diagnostic studies, discussion with consultants, patient, and family members, as well as other required patient management activities. This time is exclusive of all separately billable procedures, and teaching time and separate from and in addition to any other critical care service time. Admission and Anticipated Discharge Date Admission Date: March 25, 2023 Subjective Mr. Jose Mckeon is a 27YO M with a history of schizoaffective disorder, major depression, obesity, RA on Humira, ANUEL non-compliant with CPAP, and erosive esophagitis who was admitted to [facility] ICU 03/24/2023 AM after an intentional overdose involving ETOH and benzodiazepines. Course complicated by ARDS i/s/o large volume aspiration. He has been removed from sustained NMB, w eaning ventilator and sedation. Covered with Unasyn, repeat BAL cx pending. Overnight persistently agitated requiring increased sedation, afebrile, hemodynamically stable. Patient seen in ICU 104. He is resting comfortably. Currently on 7mg/hr Versed and 275mcg/hr Fentanyl. UOP adequate overnight, patient remains 10L +. Electrolytes repleted, kidney function stable. Leukocytosis has resolved. ROS unable to be obtained due to clinical status. Physical Exam Constitutional: Morbidly obese, ill-appearing male Eyes: PERRL, conjunctivae normal, anicteric sclerae Neck: trachea midline, no thyromegaly Respiratory: + cough; no respiratory distress Ausc ultation: + diminished lung sounds, + rales and + rhonchi Cardiovascular: RRR, no murmur, no edema Gastrointestinal (Abdomen): normal bowel sounds, soft, nontender, no hepatosplenomegaly Skin: no rashes, warm and dry Neurologic: moves all extremities Results & Data Results & Data Vital Signs (Past 12 Hours) Vital Signs Temp Pulse Resp BP Pulse Ox O2 Del Method FiO2 03/30/23 03:51 50 03/30/23 03:01 36.9 C 51 L 18 98 Mechanical Vent 50 03/30/23 03:01 142/93 H 03/30/23 02:57 56 L 24 93 50 03/30/23 02:01 144/93 H 03/30/23 02:01 36.9 C 59 L 19 94 Mechanical Vent 50 03/30/23 01:31 37.0 C 54 L 18 93 Mechanical Vent 50 03/30/23 01:31 150/89 H 03/30/23 01:01 144/90 H Mechanical Vent 50 03/30/23 01:01 37.0 C 55 L 19 94 03/30/23 00:31 155/97 H 03/30/23 00:31 37.1 C 55 L 18 98 Mechanical Vent 50 03/30/23 00:01 152/93 H 03/30/23 00:01 37.0 C 51 L 22 99 Mechanical Vent 50 03/30/23 00:00 50 03/29/23 23:31 153/95 H 03/29/23 23:31 37.0 C 60 21 98 Mechanical Vent 50 03/29/23 23:01 153/90 H 03/29/23 23:01 37.0 C 58 L 23 100 Mechanical Vent 50 03/29/23 22:58 62 03/29/23 22:40 70 26 H 100 50 03/29/23 22:31 153/96 H 03/29/23 22:31 37.0 C 62 19 100 Mechanical Vent 50 03/29/23 22:01 37.1 C 63 21 100 Mechanical Vent 50 03/29/23 22:01 149/92 H 03/29/23 21:31 37.1 C 71 19 97 Mechanical Vent 50 03/29/23 21:31 151/92 H 03/29/23 21:01 142/97 H 03/29/23 21:01 37.3 C 77 27 H 91 Mechanical Vent 50 03/29/23 20:31 141/101 H 03/29/23 20:30 37.3 C 78 26 H 93 Mechanical Vent 50 03/29/23 20:00 Mechanical Vent 50 03/29/23 20:00 50 Coding Level of Care Code 85773 CRITICAL CARE 1ST 30-74M Diagnoses Overdose by ingestion T50.901A Alcohol intoxication F10.921 Complication of substance-induced condition: with delirium Respiratory failure J96.02 Chronicity: acute Respiratory failure complication: hypercapnia Rheumatoid arthritis, involving unspecified site, unspecified whether rheumatoid factor present M06.9 Rheumatoid arthritis location: unspecified site Rheumatoid factor presence: unspecified presence (2) Alcohol intoxication Complication of substance-induced condition: with delirium Qualified Code(s): F10.921 - Alcohol use, unspecified with intoxication delirium (3) Respiratory failure Chronicity: acute Respiratory failure complication: hypercapnia Qualified Code(s): J96.02 - Acute respiratory failure with hypercapnia (4) Rheumatoid arthritis Rheumatoid arthritis location: unspecified site Rheumatoid factor presence: unspecified presence Qualified Code(s): M06.9 - Rheumatoid arthritis, unspecified
[2023-03-30] MEDS: POLYETHYLENE (MIRALAX) 17 GM PACK PO SCH (08:40)
[2023-03-30] MEDS: methylPREDNISolone 60 MG in SYRINGE 0 ML IV SCH ×3 (08:41→20:39)
[2023-03-30] MEDS: clonazePAM 1 MG TAB PO SCH ×2 (08:41→20:40)
[2023-03-30] MEDS: MULTI VIT W/MINERALS LIQUID 15 ML UDP NG SCH (08:41)
[2023-03-30] MEDS: PANTOprazole 40 MG in SYRINGE 0 ML IV SCH ×2 (08:41→20:39)
[2023-03-30] MEDS: ENOXAPARIN INJ 40 MG/0.4 ML SYR SQ SCH ×2 (08:42→20:38)
[2023-03-30] MEDS: risperiDONE 0.5 MG TABLET GT SCH ×2 (08:43→20:37)
[2023-03-30] MEDS: DOCUSATE SODIUM SYRUP 100 MG/10 ML UDC PO SCH ×2 (08:44→20:38)
[2023-03-30] MEDS: oxyCODONE HCL IR 5 MG TAB (IMMEDIATE RELEASE) PO SCH ×3 (08:45→20:39)
[2023-03-30] MEDS ORDERED: POLYETHYLENE (MIRALAX) 17 GM PACK PO SCH (09:00)
[2023-03-30] MEDS ORDERED: ROCURONIUM BROMIDE 10 MG/ML 5 ML VIAL IV ONE (09:00)
[2023-03-30] MEDS ORDERED: LACTULOSE 200GM/700ML WTR ENEMA PR ONE (10:00)
--- NOTE | 2023-03-30 10:04 | Communication Note ---
Date of Service: March 30, 2023 Patient proned at 1000. Plan for 16 hours (0200). Will start Ketamine infusion, assess response. Versed wean. Bolus NMB PRN ventilator dyssynchrony. Will update patient's parents via phone and in person as they are available.
--- NOTE | 2023-03-30 10:22 | CT Scan Report ---
CT chest diagnostic wo con CT DOSE: 927.79 mGy.cm CLINICAL HISTORY: 27 years-old Male with Follow up pneumonia, failure to improve. Acute shortness of breath TECHNIQUE: Multiaxial CT images of the chest were performed without contrast. A dose lowering techni que was utilized adhering to the principles of ALARA. COMPARISON: 03/24/2023 FINDINGS: No thyroid nodule or lymphadenopathy identified. Mild cardiomegaly. Unremarkable thoracic a carmen. Small pleural effusions. No pneumothorax. Intralobular septal thickening. Dense consolidation with ai r bronchograms noted within the right greater than left lower lobes which has progressed from the 03/24/2023 exam. Additional scattered groundglass and reticular nodular opacities are present in a multil obar distribution, right greater than left. Endotracheal tube is noted within the trachea terminating 1.6 cm superior to the za. And enteric tube is noted coiled within the stomach with distal tip p rojected superiorly within the gastric fundus. Left IJ central venous catheter distal tip terminates within the superior cavoatrial junction. No acute process of the imaged upper abdomen. Mild nonspecific anterior chest wall and neck subcutane ous edema. The bones appear intact. No acute fracture identified. IMPRESSION: 1. Lines and tubes as above. No pneumothorax. 2. Progressive dense airspace consolidation with air bronchograms within the dependent lower lobes wi th worsening patchy multifocal bilateral pulmonary opacities suggestive of multifocal pneumonia. 3. Cardiomegaly with mild pulmonary edema and small pleural effusions. ACT 112: Negative or not required by law. Electronically signed by: Supa Cole M.D. 03/30/2023 10:19 AM
--- NOTE | 2023-03-30 10:35 | XRay Report ---
XR chest 1V portable HISTORY: Resp failure COMPARISON: Chest 03/29/2023. FINDINGS: Endotracheal tube terminates 4.9 cm from the za. Nasogastric tube terminates below the diaphragm. A left jugular central venous catheter terminates at the distal SVC. This remains unchange d. No pneumothorax. The heart remains mildly enlarged. Pulmonary edema and small bilateral pleural ef fusions persist. Bilateral patchy airspace opacities and bibasilar densities also persist. IMPRESSION: 1. Satisfactory support line placement. 2. Pulmonary edema and small bilateral pleural effusions again noted. 3. Patchy bilateral airspace opacities, unchanged. This likely represents a multifocal pneumonia. ACT 112: Negative or not required by law. Electronically signed by: Abhishek Ohara M.D. 03/30/2023 10:33 AM
[2023-03-30] MEDS: KETAMINE / NSS 500 MG/500 ML BAG IV SCH (10:37)
[2023-03-30 11:19] LABS: iSTAT Allen Test Pass; iSTAT Art Bld Gas pCO2 Correct 45 mmHg (35-46); iSTAT Art Bld Gas pH Corrected 7.435 (7.35-7.45); iSTAT Arterial Blood Gas HCO3 31 meg/L (19-24); iSTAT Arterial Blood Gas pCO2 47 mmHg (35-46); iSTAT Arterial Blood Gas pH 7.42 (7.35-7.45); iSTAT Arterial Blood Gas pO2 61 mmHg (80-95); iSTAT Arterial Blood Gas pO2 C 57; iSTAT Carbon Dioxide 32 mmol/L (24-31); iSTAT FiO2 45 %; iSTAT Hematocrit 30 % (42-52); iSTAT Hemoglobin 10.2 g/dl (14.0-18.0); iSTAT Potassium 4.5 mmol/L (3.3-5.0); iSTAT Site L Radial; iSTAT Sodium 135 mmol/L (135-144)
[2023-03-30 13:21] LABS: Anion Gap 4 (3-11); Blood Urea Nitrogen 22 mg/dl (6-23); Carbon Dioxide 30 mmol/L (21-32); Chloride 103 mmol/L (98-107); Creatinine Clr Calc Pharmacy 235.4 ml/min; Est GFR (African American) > 150.0 ml/min; Est GFR (Non-African American) 130.4 ml/min; Glucose 132 mg/dl (70-99(Fasting)); Magnesium 2.1 mg/dl (1.7-2.4); Potassium 4.5 mmol/L (3.5-5.1); Sodium 137 mmol/L (136-145)
--- NOTE | 2023-03-30 13:44 | Electrocardiogram Report ---
Test Reason : Blood Pressure : / mmHG Vent. Rate : 052 BPM Atrial Rate : 052 BPM P-R Int : 148 ms QRS Dur : 088 ms QT Int : 422 ms P-R-T Axes : 043 046 037 degrees QTc Int : 392 ms Sinus bradycardia Otherwise normal ECG When compared with ECG of 29-MAR-2023 09:49, Vent. rate has decreased BY 38 BPM Confirmed by Heath Connolly ([id number]) on 03/30/2023 1:44:10 PM Referred By: REFERRED SELF Confirmed By:Heath Connolly
[2023-03-30] MEDS: VECURONIUM BROMIDE 10 MG VIAL IV PRN ×2 (13:48→16:52)
--- NOTE | 2023-03-30 16:50 | Hospitalist Progress Note ---
Date of Service March 30, 2023 Assessment & Plan (1) Hypotension: Plan: Acute metabolic encephalopathy Multifactorial: Toxic and metabolic: Drug overdose, alcohol intoxication, Anoxia Acute respiratory failure with hypoxia and Hypercarbia Suicide Attempt ARDS Aspiration pneumonia DD: Possible Neptune pneumonia --Head CT: Normal head/brain CT. --EEG:study is quite abnormal showing generalized, irregular mixed amplitude slow activity. There were no focal abnormalities or potentially epileptogenic discharges seen. S/P Intubation Patient underwent flexible bronchoscopy with bronchial washings from right lung 03/29/23 Atracurium discontinued Appreciate critical care input Vent management as per ICU team Psychiatry following Tolerating tube feeds Patient's family requesting psychiatry from [facility] to discuss with patient's primary psychiatrist when appropriate to coordinate care Did not tolerate pressure support 03/29 CT chest today suggestive of progressive airspace consolidation with air b ronchograms within the dependent lower lobes, mild pulmonary edema Placed on Prone Position today Continue on Solu-Medrol 60 mg every 8 hours Also on IV Lasix No parasites seen on blood smear Follow-up bronchial cultures Aspiration pneumonia --CXR:Bilateral airspace opacities most pronounced on the left S/P bronchoscopy on 03/26/23 Aspiration precautions Currently on Unasyn Hypophosphatemia Hypocalcemia Hypokalemia Replete electrolytes as needed Monitor Bloody emesis Suspected upper GI bleed H/O NSAID esophagitis DD: Esophagitis, peptic ulcer disease, gastritis etc GI on board Continue IV Protonix Hb drop likely dilational Monitor CBC ADHD Schizoaffective disorder Past suicidal ideation One-to-one observation, suicide precautions Hold all antipsychotic medications for now Cannot leave AMA, [address] Lamictal, Klonopin restarted per ICU team Combined respiratory/metabolic acidosis Lactic acidosis Lactic acid levels trended down Received IV bicarbonate ANUEL H/O CPAP intolerance H/O Congenital nasal septal deviation S/P surgery per record DVT Px: SCDs Lovenox SQ Code Status Full code Admission and Anticipated Discharge Date Admission Date: March 25, 2023 Subjective Patient is seen and examined at bedside Remains sedated and Intubated Afebrile today Bradycardia noted on monitor CT chest today suggestive of progressive airspace consolidation with air bronchograms within the dependent lower lobes, mild pulmonary edema Placed on Prone Position today Review of Systems Review of Systems: Unobtainable due to endotracheal tube Physical Exam Physical Exam: Physical Exam: Vitals signs as noted above General Appearance:Obese, no apparent distress,+Intubated, +Prone Head: normocephalic, Atraumatic Eyes: normal inspection, EOMI Neck: supple, Trachea midline Respiratory/Chest: Normal breath sounds, CTA, No accessory muscle use Cardiovascular: S1, S2, No murmur Abdomen/GI:Soft, Non tender, Bowel sounds present Extremities/Musculoskeletal:normal inspection, no edema Neurologic/Psych:Unable to perform neurological exam Skin: normal color, warm Results & Data Results & Data Vital Signs (Past 12 Hours) Vital Signs Temp Pulse Resp BP Pulse Ox O2 Del Method FiO2 03/30/23 14:42 90 27 H 91 45 03/30/23 12:00 45 03/30/23 12:00 36.5 C 49 L 22 129/81 93 Mechanical Vent 45 03/30/23 11:31 36.4 C L 51 L 16 129/85 94 Mechanical Vent 45 03/30/23 11:01 36.1 C L 60 22 137/88 92 03/30/23 10:31 28.1 C L 59 L 22 127/85 90 Mechanical Vent 45 03/30/23 10:05 68 24 90 50 03/30/23 09:45 74 19 121/77 91 Mechanical Vent 45 03/30/23 08:31 36.8 C 64 22 115/69 89 L Mechanical Vent 45 03/30/23 08:00 45 03/30/23 08:00 36.8 C 62 17 122/77 89 L Mechanical Vent 45 03/30/23 07:47 66 22 92 50 03/30/23 07:30 36.7 C 49 L 19 122/80 94 Mechanical Vent 45 03/30/23 07:00 36.7 C 48 L 19 123/78 96 Laboratory Results Short CBC 03/30/23 Range/Units 03:43 WBC 8.69 (4.8-10.8) K/ul Hgb 10.5 L (14.0-18.0) g/dl Hct 33.0 L (42.0-52.0) % Plt Count 376 (130-400) K/uL BMP 03/30/23 03/30/23 03:43 12:33 Sodium 134 L 137 Potassium 4.4 4.5 Chloride 103 103 Carbon Dioxide 28 30 BUN 18 22 Creatinine 0.68 0.71 Glucose 151 H 132 H Calcium 8.9 9.0
[2023-03-30] MEDS ORDERED: STAT IV Infusion **Titration per Protocol STA (18:18)
[2023-03-30] MEDS: CISATRACURIUM BESYLATE 40 MG in DEXTROSE 5% 80 ML IV SCH ×3 (18:37→23:18)
[2023-03-30] MEDS: FUROSEMIDE 40 MG/4 ML VIAL IV SCH (20:40)
--- OUTSIDE RECORDS SUMMARY | 2023-03-31 00:08 | External Medical Summary | Summary of Care ---
Author Name Unknown Organization [facility] Address [address] [place] [address] Phone [phone] Care Team Providers Care Diagnostic Technologist Name Role Phone Renata Waters MD Primary Care Provider [phone] Reason for Visit * Reason Comments eRx-Medication Refill Encounter Details Date Type Department Care Team (Late st Contact Info) Description 03/18/2023 Refill General Internal Medicine [facility] [place] [address] [facility] [place] [id number] Renata Waters MD [address] [facility] [place] [address] Gastroesophageal reflux disease with esophagitis and hemorrhage Allergies Active Allergy Reactions Criticality Noted Date Comments Azithromycin 02/07/2021 rash documented as of this encounter (statuses as of 03/19/2023) Medications Medication Sig Dispensed Refills Start Date End Date Status Cetirizine HCl 10 MG Oral Tablet Take 1 Tablet by mouth in the morning. 0 02/07/2021 Active Humira Pen 40 MG/0.4ML Subcutaneous Pen-injector Kit (Adalimumab) Inject 0.4 mL under the skin every 14 days. 2 Each 11 06/22/2022 Active Methylphenidate HCl 5 MG Oral Tablet (Ritalin) Take 1 Tablet by mouth in the morning and 1 Tablet before bedtime. As needed. 0 08/21/2022 Active Gabapentin 100 MG Oral Capsule (Neurontin) Take 2 Capsules by mouth in the morning and 2 Capsules in the evening. 0 Active lamoTRIgine 25 MG Oral Tablet (LaMICtal)Indicati ons:in pm Take 2 Tablets by mouth daily. 2 daily 0 07/30/2022 Active Berkeley-3 1000 MG Oral Capsule Take 2 Capsules by mouth in the morning and 2 Capsules before bedtime. 2 caps three times daily. 0 Active Lurasidone HCl 80 MG Oral Tablet (Latuda) Take 1 Tablet by mouth at bedtime. 0 08/06/2022 Active FeroSul 325 (65 Fe) MG Oral TabletIndications: Gastroesophageal reflux disease with esophagitis and hemorrhage Take 1 Tablet by mouth in the morning and 1 Tablet in the evening. 60 Tablet 5 12/23/2022 Active Omeprazole 40 MG Oral Capsule Delayed Release (PriLOSEC)Indicati ons:Gastroesophage al reflux disease with esophagitis and hemorrhage take 1 capsule by mouth every morning 90 Capsule 0 03/19/2023 Active Omeprazole 40 MG Oral Capsule Delayed Release (PriLOSEC)Indicati ons:Gastroesophage al reflux disease with esophagitis and hemorrhage Take 1 Capsule by mouth in the morning. 90 Capsule 0 12/23/2022 3 Discontinued documented as of this encounter (statuses as of 03/19/2023) Active Problems Problem Noted Date Diagnosed Date BMI 40.0-44.9, adult 11/30/2022 Encounter for therapeutic drug monitoring 2021 Schizophrenia 04/29/2021 BMI 38.0-38.9,adult 02/07/2021 Obstructive sleep apnea, adult 09/27/2017 RONI (generalized anxiety disorder) 05/22/2015 Rheumatoid arthritis of [facility] [facility] with negative rheumatoid factor Gastroesophageal reflux disease without esophagi tis Allergic sinusitis documented as of this encounter (statuses as of 03/19/2023) Immunizations Name Administration Dates Next Due COVID-19 mRNA, LNP-s, No Pre serve, 2-Dose Series (PANOSOL) 01/22/2021,08/05/2020,07/22/2020 SEASONAL INFLUENZA, PF, 6 M & Above, IM , (FLULAVAL or FLUZONE) 02/07/2021 Seasonal Influenza Virus Vac cine, Unspecified Formulation 02/07/2021 documented as of this encounter Social History Tobacco Use Types Packs/Day Years Used Date Smoking Tobacco: Never Smokeless Tobacco: Never Alcohol Use Standard Drinks/Week Comments Never 0 (1 standard drink = 0.6 oz pur e alcohol) Sex and Gender Information Value Date Recorded Sex Assigned at Not on file Gender Identity Not on file Sexual Orientation Not on file Job Start Date Occupation Industry Not on file Not on file Not on file documented as of this encounter Miscellaneous Notes * Telephone Encounter - Jose Martin Blair MD - 03/19/2023 8:53 AM EDTSigned Prescriptions: Disp Refills Omeprazole 40 MG Oral Capsule Delayed Rele*90 Cap*0 Sig: take 1 capsule by mouth every morning Authorizing Provider: JOSE MARTIN BLAIR * Telephone Encounter - Tony Sanchez [facility] - 03/18/2023 8:49 PM EDT Pending Prescriptions: Disp Refills Omeprazole 40 MG Oral Capsule Delayed Rele*90 Cap*0 Sig: take 1 capsule by mouth every morning * Telephone Encounter - Tony Sanchez [facility] - 03/18/2023 8:49 PM EDT Last authorized for 3 months. Forwarding to provider for further evaluation. Please approve and authorize additional refills if you would like patient to continue this medication. Pending Prescriptions: Disp Refills Omeprazole 40 MG Oral Capsule Delayed Rele*90 Cap*0 Sig: take 1 capsule by mouth every morning Last Visit: 11/30/2022 (in office), Visit date not found (telemedicine) Next Visit: 05/25/2023 If no future appointments scheduled, and last appointment is greater than a year ago, please schedule patient for a follow-up appointment Last date the medication was ordered: Pharmacy: [id number] Is this request for a controlled substance? No Urine Drug Screen:No results found for this or any previous visit. Patient Phone Numbers Labs: Lab Results Component Value Date/Time CREAT 1.0 11/30/2022 01:07 PM CREAT 0.94 06/22/2022 12:00 AM POTASSIUM 4.2 11/30/2022 01:07 PM POTASSIUM 3.9 06/22/2022 12:00 AM TSH 1.818 06/22/2022 12:00 AM LDLCALC 91 06/22/2022 12:00 AM ALT 39 11/30/2022 01:07 PM Tony Christy PharmD Clinical Pharmacist [facility] (formerly Telepharm[facility]) [phone] 03/18/2023,8:49 PM documented in this encounter Plan of Treatment Upcoming Encounters Date Type Department Care Team (Late st Contact Info) Description 05/25/2023 2:00 PM EST Office Visit General Internal Medicine [facility] [address] [facility] [place] [address] Renata Waters MD [address] [facility] [place] [address] 09/28/2023 4:00 PM EDT Office Visit Rheumatology [place] [id number] [place] [address] Brando Degroot MD [facility] [place] [address] Health Maintenance Due Date Last Done Comments Hepatitis B (1 of 3 - 3-dose series) 1997 Pneumococcal Vaccine: Pediatrics (0 to 5 Years) and At-Risk Patients (6 to 64 Years) (1 - PCV) 2003 GARDASIL-HPV IMMUNIZATION SERIES (1 - Male 2-dose series) 2008 Depression Screening 2009 HIV Screening 2012 DTaP,Tdap,and Td Vaccines (1 - Tdap) 2016 COVID-19 Vaccine (4 - 2022-2 4 season) 2023 01/22/2021, 08/05/2020, 07/22/2020 Influenza Vaccine (FLU shot) (#1) 2023 02/07/2021, 02/07/2021 MENINGOCOCCAL (MENACTRA/MENVEO) Aged Out No longer eligible b ased on patient's age to complete this topic documented as of this encounter Medical Devices Not on filedocumented as of this encounter Visit Diagnoses Diagnosis Gastroesophageal reflux disease with esophagitis and hemorrhage documented in this encounter Care Teams Diagnostic Technologist Relationship Specialty Start Date End Date Renata Waters MD [address] [facility] [place] [place] [address] PCP - General Internal Medicine 05/10/21 documented as of this encounter
[2023-03-31] MEDS: INSULIN ASPART PER UNIT CHARGE SC SCH ×4 (00:32→16:22)
[2023-03-31] MEDS: dexMEDEtomidine 200 MCG/50 ML BAG IV SCH ×20 (01:10→18:43)
[2023-03-31] MEDS: CISATRACURIUM BESYLATE 40 MG in DEXTROSE 5% 80 ML IV SCH ×5 (01:10→08:00)
[2023-03-31] MEDS: fentaNYL citrate 2,500 MCG/250 ML BAG IV SCH ×5 (01:20→12:48)
[2023-03-31] MEDS: ARTIFICIAL TEARS OP OINT 3.5 GM TUBE OP SCH ×4 (02:59→13:42)
[2023-03-31 04:15] LABS: iSTAT Allen Test Pass; iSTAT Art Bld Gas pCO2 Correct 46 mmHg (35-46); iSTAT Art Bld Gas pH Corrected 7.411 (7.35-7.45); iSTAT Arterial Blood Gas HCO3 29 meg/L (19-24); iSTAT Arterial Blood Gas pCO2 46 mmHg (35-46); iSTAT Arterial Blood Gas pH 7.42 (7.35-7.45); iSTAT Arterial Blood Gas pO2 78 mmHg (80-95); iSTAT Arterial Blood Gas pO2 C 80; iSTAT Carbon Dioxide 31 mmol/L (24-31); iSTAT FiO2 30 %; iSTAT Hematocrit 32 % (42-52); iSTAT Hemoglobin 10.9 g/dl (14.0-18.0); iSTAT Potassium 4.5 mmol/L (3.3-5.0); iSTAT Site R Radial; iSTAT Sodium 135 mmol/L (135-144)
[2023-03-31 04:24] LABS: Hematocrit (blood only) 31.5 % (42.0-52.0); Mean Corpuscular Hemoglobin 25.4 pg (25.0-34.0); Mean Corpuscular Hgb Conc 31.7 g/dL (32.0-36.0); Mean Corpuscular Volume 80.2 fL (80.0-100.0); Mean Platelet Volume 9.4 fL (9.4-12.4); Platelet Count 430 K/uL (130-400); RDW Coefficient of Variation 17.6 % (11.5-14.5); RDW Standard Deviation 49.3 fL (36.4-46.3); Red Blood Count 3.93 M/uL (4.70-6.10); White Blood Count 13.58 K/ul (4.8-10.8)
[2023-03-31 04:48] LABS: Anion Gap 4 (3-11); Calcium 8.7 mg/dl (8.6-10.3); Carbon Dioxide 30 mmol/L (21-32); Chloride 101 mmol/L (98-107); Magnesium 2.1 mg/dl (1.7-2.4); Potassium 4.4 mmol/L (3.5-5.1); Sodium 135 mmol/L (136-145)
[2023-03-31 04:54] LABS: BUN Creatinine Ratio 33.3 (10-20); Blood Urea Nitrogen 24 mg/dl (6-23); Creatinine Clr Calc Pharmacy 226.8 ml/min; Est GFR (African American) > 150.0 ml/min; Est GFR (Non-African American) 129.7 ml/min; Glucose 172 mg/dl (70-99(Fasting)); Phosphorus 3.6 mg/dl (2.5-4.9); Triglycerides 125 mg/dl (0-150)
[2023-03-31] MEDS: UNASYN 3000MG / NS q6h IV SCH (04:59)
[2023-03-31] MEDS: KETAMINE / NSS 500 MG/500 ML BAG IV SCH ×2 (05:07→12:47)
[2023-03-31] MEDS: ICU ELECTROLYTE REPLACEMENT PROTOCOL SCH ×2 (05:18→16:25)
[2023-03-31] MEDS: fentaNYL BOLUS from BAG IV PRN (06:32)
[2023-03-31] MEDS: MIDAZOLAM HCL 125 MG/250 ML BAG IV SCH ×2 (07:26→13:43)
--- NOTE | 2023-03-31 07:41 | Critical Care Progress Note ---
Date of Service March 31, 2023 Assessment & Plan (1) Overdose by ingestion: (2) Alcohol intoxication: (3) Respiratory failure: (4) Rheumatoid arthritis: Plan Reason Critically Ill: 27 YOM admitted to ICU post intentional overdose via ingestion, now intubated and mechanically ventilated. Ingestion of Ativan and ETOH Neuro: Acute encephalopathy upon presentation in ED -Suspect toxic/metabolic: Multifactorial -Consider surveillance CTH vs MRI to assess if he doesn't respond to decreased sedation, did show meaningful response 03/29 -Acute alcohol intoxication on presentation: Resolved RASS goal (-5) while on continuous NMB, hope to wean off today Continue Ketamine, Fentanyl, Precedex. Continue to wean Versed as able Continue Risperdal PO, continue oxycodone 10mg TID, wean fentanyl as able Suicide attempt Schizoaffective disorder Major depressive episode -302 for suicide attempt when medically cleared, reviewed psych liaison notes -Psych meds d/w patient's psychiatrist, OK with Risperdal and will reassess as OP -Caplyta nonformulary holding at present time SAT/SBT as clinical condition allows Resp: Severe acute respiratory distress syndrome secondary to aspiration of gastric contents into the airway -SpO2 goal 90-92% -Continue lung-protective ventilation -Supine this AM -CXR s/p supination Aspiration into bronchial tree -Bronchoscopy performed 03/26, 03/29 Respiratory driven protocol, no need for frequent ABG, follow pulse oximeter Possibility of trach if patient does not show improvement was introduced to family CV: Echo report from October 2022 reviewed, WNL MAP goal 65mmHg Fluids/Renal: Replete electrolytes as indicated Patient is 7.5L+, continue scheduled Lasix 40mg BID Linares for accurate I/Os ID: Coverage for aspiration pneumonia -Unasyn day #7 -BAL no growth, rare GPC, eosinophils present - repeat studies sent for cx, gs, fungitell Continue Solumedrol 80mg Q8H, taper GI/Nutrition: Diet: TF at goal -History of esophagitis: October 2022 SUP: PPI BID Bowel regimen: Continue aggressive regimen. No BM yet. Will repeat lactulose enema today Heme: Anemia: Stable Leukocytosis: Improved DVT prophylaxis: Lovenox and SCDs Endocrine: ICU hyperglycemia protocol, BG 140-180 per SCCM guidelines TSH within normal limits on February 2023 Vascular access: LIJ CVC: Day #6, obtain adequate peripheral access within the next day and remove Arterial line: Day #6 Linares: Day #6 Code Status: Full code Disposition: ICU CRITICAL CARE TIME - I have personally spent 25 minutes of critical care time in the direct management of this patient. This is a life/limb threatening event. This includes time spent evaluating patient, direct bedside care, chart review, placing orders, interpretation of diagnostic studies, discussion with consultants, patient, and family members, as well as other required patient management activities. This time is exclusive of all separately billable procedures, and teaching time and separate from and in addition to any other critical care service time. Admission and Anticipated Discharge Date Admission Date: March 25, 2023 Subjective Mr. Jose Mckeon is a 27YO M with a history of schizoaffective disorder, major depression, obesity, RA on Humira, ANUEL non-compliant with CPAP, and erosive esophagitis who was admitted to [facility] ICU 03/24/2023 AM after an intentional overdose involving ETOH and benzodiazepines. Course complicated by ARDS i/s/o large volume aspiration. He has been removed from sustained NMB, weaning ventilator and sedation. Covered with Unasyn, repeat BAL cx pending. Overnight persistently agitated requiring increased sedation, afebrile, hemodynamically stable. Patient seen in ICU 104. He continues on continuous NMB. Currently on 5mg Versed, 0.1mg Ketamine, 0.9mg Precedex and 225mcg/hr Fentanyl. UOP adequate overnight, patient remains 7.5L +. Electrolytes repleted, kidney function stable. Ventilator mechanics have improved, currently VC 420/20/16/0.3. ROS unable to be obtained due to clinical status. Review of Systems Review of Systems: Unobtainable due to endotracheal tube Physical Exam Eyes: PERRL, conjunctivae normal, anicteric sclerae Neck: trachea midline, no thyromegaly Respiratory: + cough; no respiratory distress Ausc ultation: + diminished lung sounds, + rales and + rhonchi Cardiovascular: RRR, no murmur, no edema Gastrointestinal (Abdomen): normal bowel sounds, soft, nontender, no hepatos plenomegaly Skin: no rashes, warm and dry Neurologic: moves all extremities Results & Data Results & Data Vital Signs (Past 12 Hours) Vital Signs Temp Pulse Resp BP Pulse Ox O2 Del Method FiO2 03/31/23 07:25 78 20 91 30 03/31/23 06:31 37.0 C 68 20 92 03/31/23 06:31 142/91 H 03/31/23 06:30 37.0 C 66 20 91 03/31/23 06:01 153/103 H 03/31/23 06:01 37.0 C 96 H 20 91 03/31/23 06:00 37.0 C 91 H 20 91 03/31/23 05:31 166/100 H 03/31/23 05:31 37.1 C 87 20 90 03/31/23 05:30 37.1 C 102 H 20 92 03/31/23 05:01 37.2 C 58 L 20 93 Mechanical Vent 30 03/31/23 05:01 143/95 H 03/31/23 04:34 63 20 93 30 03/31/23 04:30 37.2 C 73 20 91 Mechanical Vent 30 03/31/23 04:30 145/88 H 03/31/23 04:16 147/92 H 03/31/23 04:16 37.2 C 61 20 93 Mechanical Vent 30 03/31/23 04:00 30 03/31/23 03:31 37.3 C 69 22 92 Mechanical Vent 30 03/31/23 03:31 150/92 H 03/31/23 03:01 37.2 C 69 22 91 Mechanical Vent 30 03/31/23 03:01 147/100 H 03/31/23 02:31 37.1 C 56 L 22 94 Mechanical Vent 30 03/31/23 02:31 137/89 03/31/23 02:27 63 22 94 40 03/31/23 02:01 129/80 03/31/23 02:00 37.1 C 62 19 93 03/31/23 01:30 37.2 C 82 23 95 03/31/23 01:01 37.1 C 73 22 95 Mechanical Vent 40 03/31/23 01:01 133/73 03/31/23 00:31 130/77 03/31/23 00:31 37.1 C 74 22 96 Mechanical Vent 40 03/31/23 00:01 37.1 C 93 H 22 97 Mechanical Vent 60 03/31/23 00:01 146/85 H 03/31/23 00:00 50 03/30/23 23:31 37.3 C 82 22 97 Mechanical Vent 60 03/30/23 23:31 133/74 03/30/23 23:01 37.2 C 69 22 96 Mechanical Vent 60 03/30/23 23:01 124/70 03/30/23 22:31 121/65 03/30/23 22:31 37.1 C 73 22 96 Mechanical Vent 60 03/30/23 22:29 78 22 96 60 03/30/23 22:01 143/89 H 03/30/23 22:01 37.0 C 90 22 97 Mechanical Vent 60 03/30/23 22:00 100 H 03/30/23 21:31 128/68 03/30/23 21:31 37.0 C 99 H 22 97 Mechanical Vent 60 03/30/23 21:01 37.1 C 125 H 22 98 Mechanical Vent 60 03/30/23 21:01 139/75 03/30/23 20:31 127/73 03/30/23 20:31 37.3 C 67 23 97 Mechanical Vent 60 03/30/23 20:03 25 H 98 60 03/30/23 20:01 37.4 C 90 24 03/30/23 20:01 138/82 03/30/23 20:00 Mechanical Vent 60 03/30/23 20:00 60 Coding Level of Care Code 27561 CRITICAL CARE 1ST 30-74M Diagnoses Overdose by ingestion T50.901A Alcohol intoxication F10.921 Complication of substance-induced condition: with delirium Respiratory failure J96.02 Chronicity: acute Respiratory failure complication: hypercapnia Rheumatoid arthritis, involving unspecified site, unspecified whether rheumatoid factor present M06.9 Rheumatoid arthritis location: unspecified site Rheumatoid factor presence: unspecified presence (2) Alcohol intoxication Complication of substance-induced condition: with delirium Qualified Code(s): F10.921 - Alcohol use, unspecified with intoxication delirium (3) Respiratory failure Chronicity: acute Respiratory failure complication: hypercapnia Qualified Code(s): J96.02 - Acute respiratory failure with hypercapnia (4) Rheumatoid arthritis Rheumatoid arthritis location: unspecified site Rheumatoid factor presence: unspecified presence Qualified Code(s): M06.9 - Rheumatoid arthritis, unspecified
[2023-03-31] MEDS ORDERED: SODIUM CHLORIDE 0.9% IV SCH (08:00)
[2023-03-31] MEDS ORDERED: CISATRACURIUM BESYLATE IV SCH (08:00)
[2023-03-31] MEDS ORDERED: CISATRACURIUM BESYLATE 40 MG in 0.9 % SODIUM CHLORIDE 80 ML IV SCH (08:15)
[2023-03-31] MEDS ORDERED: LACTULOSE 200GM/700ML WTR ENEMA PR ONE (08:30)
--- NOTE | 2023-03-31 08:38 | XRay Report ---
KUB CLINICAL HISTORY: Constipation. No bowel movement. FINDINGS: 2 AP, portable, supine abdominal radiographs are compared to study dated 03/25/2023 and tima elated with abdominal CT dated 11/16/2022. An enteric tube is in place. There is a nonobstructed abdom inal bowel gas pattern. Moderate fecal retention is noted in the right colon. A rectal temperature pr obe is in place. No evidence of intraperitoneal free air seen on these supine images. There are no ab normal abdominal calcifications. The bony structures appear intact. IMPRESSION: No acute abnormality. See above. Electronically signed by: Sky Larry M.D. 03/31/2023 8:37 AM
--- NOTE | 2023-03-31 08:38 | XRay Report ---
XR chest 1V portable HISTORY: Respiratory failure. Follow-up. COMPARISON: Chest CT 03/30/2023. FINDINGS: The endotracheal tube terminates 4.6 cm from the za. A nasogastric tube terminus below the diaphragm with the tip curled within the stomach and terminating near the fundus. Left jugular ce ntral venous catheter terminates at the distal SVC. No pneumothorax. The heart remains enlarged. Pulm onary edema and patchy bibasilar airspace opacities persist. Small bilateral pleural effusions again noted. IMPRESSION: 1. Satisfactory support line placement. 2. Pulmonary edema and patchy bilateral airspace opacities persist. ACT 112: Negative or not required by law. Electronically signed by: Abhishek Ohara M.D. 03/31/2023 8:37 AM
[2023-03-31] MEDS: methylPREDNISolone 60 MG in SYRINGE 0 ML IV SCH (08:53)
[2023-03-31] MEDS: PANTOprazole 40 MG in SYRINGE 0 ML IV SCH ×2 (08:53→20:36)
[2023-03-31] MEDS: risperiDONE 0.5 MG TABLET GT SCH ×2 (08:53→20:37)
[2023-03-31] MEDS: DOCUSATE SODIUM SYRUP 100 MG/10 ML UDC PO SCH ×2 (08:54→22:53)
[2023-03-31] MEDS: clonazePAM 1 MG TAB PO SCH ×2 (08:54→20:35)
[2023-03-31] MEDS: oxyCODONE HCL IR 5 MG TAB (IMMEDIATE RELEASE) PO SCH ×3 (08:54→20:35)
[2023-03-31] MEDS: ENOXAPARIN INJ 40 MG/0.4 ML SYR SQ SCH ×2 (08:55→20:37)
[2023-03-31] MEDS: POLYETHYLENE (MIRALAX) 17 GM PACK PO SCH (08:55)
[2023-03-31] MEDS: MULTI VIT W/MINERALS LIQUID 15 ML UDP NG SCH (08:55)
[2023-03-31] MEDS: FUROSEMIDE 40 MG/4 ML VIAL IV SCH ×2 (08:56→20:36)
[2023-03-31 09:50] LABS: iSTAT Allen Test Pass; iSTAT Art Bld Gas pCO2 Correct 46 mmHg (35-46); iSTAT Art Bld Gas pH Corrected 7.426 (7.35-7.45); iSTAT Arterial Blood Gas HCO3 31 meg/L (19-24); iSTAT Arterial Blood Gas pCO2 46 mmHg (35-46); iSTAT Arterial Blood Gas pH 7.43 (7.35-7.45); iSTAT Arterial Blood Gas pO2 50 mmHg (80-95); iSTAT Arterial Blood Gas pO2 C 50; iSTAT Carbon Dioxide 32 mmol/L (24-31); iSTAT FiO2 30 %; iSTAT Hematocrit 30 % (42-52); iSTAT Hemoglobin 10.2 g/dl (14.0-18.0); iSTAT Potassium 4.3 mmol/L (3.3-5.0); iSTAT Site R Radial; iSTAT Sodium 135 mmol/L (135-144)
[2023-03-31] MEDS ORDERED: SENNA 8.6 MG TAB PO SCH (10:00)
[2023-03-31] MEDS ORDERED: PEPTAMEN INTENSE VHP 1.0 CAL 1,000 ML BAG OG SCH (10:15)
[2023-03-31] MEDS: TUBE FEEDING WATER FLUSH OG SCH ×2 (11:59→13:42)
[2023-03-31] MEDS: SENNOSIDES 8.8 MG/5 ML UDC PO SCH (12:47)
[2023-03-31] MEDS: GABAPENTIN 250 MG/5 ML 470 ML BTL PO SCH (13:42)
--- NOTE | 2023-03-31 15:53 | Hospitalist Progress Note ---
Date of Service March 31, 2023 Assessment & Plan (1) Hypotension: Plan: Acute metabolic encephalopathy Multifactorial: Toxic and metabolic: Drug overdose, alcohol intoxication, Anoxia Acute respiratory failure with hypoxia and Hypercarbia Suicide Attempt ARDS Aspiration pneumonia DD: Possible [place] pneumonia --Head CT: Normal head/brain CT. --EEG:study is quite abnormal showing generalized, irregular mixed amplitude slow activity. There were no focal abnormalities or potentially epileptogenic discharges seen. S/P Intubation CT chest suggestive of progressive airspace consolidation with air bronchograms within the dependent lower lobes, mild pulmonary edema Patient underwent flexible bronchoscopy with bronchial washings from right lung 03/29/23 Atracurium discontinued Appreciate critical care input Vent management as per ICU team Psychiatry following Tolerating tube feeds Patient's family requesting psychiatry from [facility] to discuss with patient's primary psychiatrist when appropriate to coordinate care Titrate IV Steroids as able Diuresing well with IV Lasix No parasites seen on blood smear Follow-up bronchial cultures Continue to require vent support May need tracheostomy if no improvement Leukocytosis likely due to steroids today Aspiration pneumonia --CXR:Bilateral airspace opacities most pronounced on the left S/P bronchoscopy on 03/26/23 Aspiration precautions Currently on Unasyn Day #7 Hypophosphatemia Hypocalcemia Hypokalemia Replete electrolytes as needed Monitor Bloody emesis Suspected upper GI bleed H/O NSAID esophagitis DD: Esophagitis, peptic ulcer disease, gastritis etc GI on board Continue IV Protonix Hb stable Monitor CBC ADHD Schizoaffective disorder Past suicidal ideation One-to-one observation, suicide precautions Hold all antipsychotic medications for now Cannot leave AMA, [address] Lamictal, Klonopin restarted per ICU team Combined respiratory/metabolic acidosis Lactic acidosis Lactic acid levels trended down Received IV bicarbonate ANUEL H/O CPAP intolerance H/O Congenital nasal septal deviation S/P surgery per record DVT Px: SCDs Lovenox SQ Code Status Full code Admission and Anticipated Discharge Date Admission Date: March 25, 2023 Subjective Patient is seen and examined at bedside Remains sedated and Intubated Discussed with ICU team today Plan to wean fentanyl, Versed as able Diuresing well Review of Systems Review of Systems: Unobtainable due to endotracheal tube Physical Exam Physical Exam: Physical Exam: Vitals signs as noted above General Appearance:Obese, no apparent distress,+Intubated Head: normocephalic, Atraumatic Eyes: normal inspection, EOMI Neck: supple, Trachea midline Respiratory/Chest: Decreased breath sounds, No accessory muscle use Cardiovascular: S1, S2, No murmur Abdomen/GI:Soft, Non tender, Bowel sounds present Extremities/Musculoskeletal:normal inspection, no edema Neurologic/Psych:Unable to perform neurological exam Skin: normal color, warm Results & Data Results & Data Vital Signs (Past 12 Hours) Vital Signs Temp Pulse Resp BP Pulse Ox O2 Del Method FiO2 03/31/23 15:01 37.3 C 65 12 93 03/31/23 15:01 137/87 03/31/23 15:00 37.3 C 63 13 93 03/31/23 14:01 37.3 C 72 23 95 03/31/23 14:01 134/87 03/31/23 14:00 37.3 C 65 23 96 03/31/23 13:01 120/70 03/31/23 13:01 37.5 C 63 20 93 03/31/23 13:00 37.5 C 61 20 94 03/31/23 12:01 37.5 C 64 20 94 03/31/23 12:01 124/80 03/31/23 12:00 37.5 C 64 20 94 03/31/23 12:00 40 03/31/23 11:38 37.4 C 80 22 93 40 03/31/23 11:38 115/79 03/31/23 11:00 37.3 C 60 20 95 03/31/23 10:00 37.0 C 62 20 94 03/31/23 09:41 64 20 92 40 03/31/23 09:00 120/79 03/31/23 09:00 37.0 C 67 20 93 03/31/23 08:41 37.0 C 67 20 92 03/31/23 08:41 123/79 03/31/23 08:01 144/95 H 03/31/23 08:01 37.2 C 81 20 92 03/31/23 08:00 37.2 C 76 20 93 03/31/23 08:00 30 03/31/23 08:00 Mechanical Vent 03/31/23 07:31 37.2 C 73 20 91 03/31/23 07:31 147/89 H 03/31/23 07:25 78 20 91 30 03/31/23 07:01 37.2 C 60 20 93 03/31/23 07:01 138/86 03/31/23 07:00 37.1 C 60 20 93 03/31/23 06:31 37.0 C 68 20 92 03/31/23 06:31 142/91 H 03/31/23 06:30 37.0 C 66 20 91 03/31/23 06:01 153/103 H 03/31/23 06:01 37.0 C 96 H 20 91 03/31/23 06:00 37.0 C 91 H 20 91 03/31/23 05:31 166/100 H 03/31/23 05:31 37.1 C 87 20 90 03/31/23 05:30 37.1 C 102 H 20 92 03/31/23 05:01 37.2 C 58 L 20 93 Mechanical Vent 30 03/31/23 05:01 143/95 H 03/31/23 04:34 63 20 93 30 03/31/23 04:30 37.2 C 73 20 91 Mechanical Vent 30 03/31/23 04:30 145/88 H 03/31/23 04:16 147/92 H 03/31/23 04:16 37.2 C 61 20 93 Mechanical Vent 30 03/31/23 04:00 30
[2023-03-31 16:20] LABS: BUN Creatinine Ratio 32.5 (10-20); Calcium 9.2 mg/dl (8.6-10.3); Creatinine Clr Calc Pharmacy 204.2 ml/min; Est GFR (African American) 143.9 ml/min; Est GFR (Non-African American) 124.2 ml/min; Magnesium 2.1 mg/dl (1.7-2.4); Potassium 4.1 mmol/L (3.5-5.1)
[2023-03-31] MEDS ORDERED: methylPREDNISolone 40 MG in SYRINGE 0 ML IV SCH (21:00)
[2023-03-31] MEDS ORDERED: Nursing to Pharmacy Communication SCH (22:15)
[2023-03-31] MEDS: DOCUSATE SODIUM 100 MG CAP PO SCH (23:47)
[2023-04-01] MEDS: INSULIN ASPART PER UNIT CHARGE SC SCH ×2 (00:12→05:46)
[2023-04-01] MEDS ORDERED: COUGH DROP (SUGAR FREE) LOZ 24 LOZ/1 BOX BUCCAL PRN (01:43)
[2023-04-01] MEDS: COUGH DROP (SUGAR FREE) LOZ 24 LOZ/1 BOX BUCCAL ONE ×2 (02:48→02:51)
[2023-04-01] MEDS: ONDANSETRON INJ 2 MG/ML 2 ML VIAL ONE ×2 (02:49→02:51)
[2023-04-01] MEDS: ONDANSETRON INJ 2 MG/ML 2 ML VIAL IV PRN ×2 (02:50→12:55)
[2023-04-01 05:06] LABS: Hematocrit (blood only) 32.9 % (42.0-52.0); Hemoglobin 10.7 g/dl (14.0-18.0); Mean Corpuscular Hemoglobin 25.6 pg (25.0-34.0); Mean Corpuscular Hgb Conc 32.5 g/dL (32.0-36.0); Mean Corpuscular Volume 78.7 fL (80.0-100.0); Mean Platelet Volume 9.6 fL (9.4-12.4); Platelet Count 495 K/uL (130-400); RDW Coefficient of Variation 17.8 % (11.5-14.5); RDW Standard Deviation 50.1 fL (36.4-46.3); Red Blood Count 4.18 M/uL (4.70-6.10); White Blood Count 15.56 K/ul (4.8-10.8)
[2023-04-01 05:30] LABS: BUN Creatinine Ratio 31.6 (10-20); Calcium 9.1 mg/dl (8.6-10.3); Creatinine Clr Calc Pharmacy 214.9 ml/min; Est GFR (Non-African American) 126.8 ml/min; Phosphorus 2.3 mg/dl (2.5-4.9); Potassium 3.3 mmol/L (3.5-5.1)
[2023-04-01] MEDS ORDERED: POTASSIUM PHOS 3 MMOL/1 ML INFUSION IV STA (05:52)
[2023-04-01] MEDS ORDERED: POTASSIUM PHOSPHATE 30 MMOL in SODIUM CHLORIDE 0.9% 500 ML IV ONE (06:00)
[2023-04-01] MEDS: ICU ELECTROLYTE REPLACEMENT PROTOCOL SCH (06:10)
[2023-04-01] MEDS: risperiDONE 0.5 MG TABLET PO SCH ×2 (08:53→21:00)
[2023-04-01] MEDS: SENNOSIDES 8.8 MG/5 ML UDC PO SCH (08:54)
[2023-04-01] MEDS: POLYETHYLENE (MIRALAX) 17 GM PACK PO SCH (08:54)
[2023-04-01] MEDS: oxyCODONE HCL IR 5 MG TAB (IMMEDIATE RELEASE) PO SCH ×3 (08:55→21:00)
[2023-04-01] MEDS: ENOXAPARIN INJ 40 MG/0.4 ML SYR SQ SCH ×2 (08:55→21:00)
--- NOTE | 2023-04-01 08:56 | Critical Care Progress Note ---
Date of Service April 01, 2023 Assessment & Plan (1) Overdose by ingestion: (2) Alcohol intoxication: (3) Respiratory failure: (4) Rheumatoid arthritis: Plan Reason Critically Ill: 27 YOM admitted to ICU post intentional overdose via ingestion, now intubated and mechanically ventilated. Ingestion of Ativan and ETOH Neuro: Acute encephalopathy upon presentation in ED which is now resolved. Patient extubated 03/31/2023. We will alert psychiatry to ensure that he has follow-up while inpatient. Patient was an intentional overdose. Discontinue Klonopin at this time. Continue respite on 0.25 mg twice daily, continue gabapentin 200 mg p.o. twice daily and oxycodone 5 mg 3 times daily. Resp: Severe acute respiratory distress syndrome secondary to aspiration of gastric contents into the airway -SpO2 goal 90-92% -Extubated and doing well on low-flow oxygen. Patient was severely volume overloaded. We will transition to p.o. Lasix. CV: Echo report from October 2022 reviewed, WNL MAP goal 65mmHg Fluids/Renal: Lasix 40 mg po daily. Replace electrolytes per protocol. ID: Coverage for aspiration pneumonia -Unasyn day #7. Discontinue antibiotics. Procalcitonin - 03/31/2020. -BAL no growth, rare GPC, eosinophils present - repeat studies sent for cx, gs, fungitell -Discontinue corticosteroids. GI/Nutrition: Diet: Tolerating diet. Continue Protonix. Can transition to 40 mg p.o. daily. Heme: Anemia: Stable Leukocytosis: Improved DVT prophylaxis: Lovenox and SCDs Endocrine: ICU hyperglycemia protocol, BG 140-180 per [facility] guidelines TSH within normal limits on February 2023 Vascular access: Discontinue central line Code Status: Full code Disposition: Transfer to floor. Patient stable. Hospitalist notified. Admission and Anticipated Discharge Date Admission Date: March 25, 2023 Subjective Patient seen and examined. Alert and oriented x3. Occasional cough. No fevers, chills or night sweats. Currently on low-flow oxygen saturating in the 90s. Review of Systems Review of Systems: All systems reviewed & are unremarkable except as noted in HPI & below Physical Exam Eyes: PERRL, conjunctivae normal, anicteric sclerae Neck: trachea midline, no thyromegaly Respiratory: + cough; no respiratory distress Ausc ultation: + diminished lung sounds, + rales and + rhonchi Cardiovascular: RRR, no murmur, no edema Gastrointestinal (Abdomen): normal bowel sounds, soft, nontender, no hepatosplenomegaly Skin: no rashes, warm and dry Neurologic: normal touch/pain/proprioception and CN's II-XI intact bilaterally Results & Data Results & Data Vital Signs (Past 12 Hours) Vital Signs Temp Pulse Resp BP Pulse Ox 04/01/23 04:01 81 17 90 04/01/23 04:01 111/64 04/01/23 04:00 36.8 C 73 13 91 04/01/23 03:01 85 21 92 04/01/23 03:01 98/67 L 04/01/23 03:00 76 23 92 04/01/23 02:01 74 14 94 04/01/23 02:01 114/69 04/01/23 02:00 75 19 93 04/01/23 01:01 80 32 H 93 04/01/23 01:01 103/73 04/01/23 01:00 77 12 91 04/01/23 00:01 106/59 L 04/01/23 00:01 72 17 94 04/01/23 00:00 67 17 92 04/01/23 00:00 69 03/31/23 23:01 77 17 93 03/31/23 23:01 102/65 03/31/23 23:00 73 16 92 03/31/23 22:01 109/63 03/31/23 22:01 82 17 90 03/31/23 22:00 36.4 C L 75 14 91 03/31/23 21:01 77 16 89 L 03/31/23 21:01 110/65 03/31/23 21:00 72 26 H 89 L Coding Level of Care Code 95788 SUB INP/OBS CARE 2/35MIN Diagnoses Overdose by ingestion T50.901A Alcohol intoxication F10.921 Complication of substance-induced condition: with delirium Respiratory failure J96.02 Chronicity: acute Respiratory failure complication: hypercapnia Rheumatoid arthritis, involving unspecified site, unspecified whether rheumatoid factor present M06.9 Rheumatoid arthritis location: unspecified site Rheumatoid factor presence: unspecified presence (2) Alcohol intoxication Complication of substance-induced condition: with delirium Qualified Code(s): F10.921 - Alcohol use, unspecified with intoxication delirium (3) Respiratory failure Chronicity: acute Respiratory failure complication: hypercapnia Qualified Code(s): J96.02 - Acute respiratory failure with hypercapnia (4) Rheumatoid arthritis Rheumatoid arthritis location: unspecified site Rheumatoid factor presence: unspecified presence Qualified Code(s): M06.9 - Rheumatoid arthritis, unspecified
[2023-04-01] MEDS ORDERED: Nursing to Pharmacy Communication SCH (09:00)
[2023-04-01] MEDS: DOCUSATE SODIUM 100 MG CAP PO SCH ×2 (09:02→21:00)
[2023-04-01] MEDS: PANTOprazole 40 MG in SYRINGE 0 ML IV SCH ×2 (09:03→09:16)
[2023-04-01] MEDS: GABAPENTIN 250 MG/5 ML 470 ML BTL PO SCH (09:24)
[2023-04-01] MEDS ORDERED: GABAPENTIN 100 MG CAP PO ONE (09:30)
[2023-04-01] MEDS: FUROSEMIDE 40 MG TAB PO SCH (10:14)
[2023-04-01] MEDS ORDERED: INSULIN ASPART PER UNIT CHARGE SC SCH (11:30)
[2023-04-01] MEDS ORDERED: BENZOCAINE 20% (ORAJEL) 11.9 GM TUBE MT PRN (11:32)
[2023-04-01] MEDS: CEROVITE ADV FORMULA TAB PO SCH (12:39)
--- NOTE | 2023-04-01 13:18 | Hospitalist Progress Note ---
Date of Service April 01, 2023 Assessment & Plan (1) Hypotension: Plan: Acute metabolic encephalopathy Multifactorial: Toxic and metabolic: Drug overdose, alcohol intoxication, Anoxia Acute respiratory failure with hypoxia and Hypercarbia Suicide Attempt ARDS Aspiration pneumonia --Head CT: Normal head/brain CT. --EEG:study is quite abnormal showing generalized, irregular mixed amplitude slow activity. There were no focal abnormalities or potentially epileptogenic discharges seen. S/P Intubation CT chest suggestive of progressive airspace consolidation with air bronchograms within the dependent lower lobes, mild pulmonary edema Patient underwent flexible bronchoscopy with bronchial washings from right lung 03/29/23 Atracurium discontinued --S/P Extubation 03/31/23 Appreciate critical care input Psychiatry following Completed 7-day course of Unasyn IV Steroids discontinued IV Lasix transition to p.o. Lasix Saturating well on 2 L supplemental oxygen BAL no growth, rare GPC, eosinophils present. Follow-up cultures Stable to downgrade out of ICU Aspiration pneumonia --CXR:Bilateral airspace opacities most pronounced on the left S/P bronchoscopy on 03/26/23 Aspiration precautions Completed Unasyn course Hypophosphatemia Hypocalcemia Hypokalemia Replete electrolytes as needed Monitor Bloody emesis Suspected upper GI bleed H/O NSAID esophagitis DD: Esophagitis, peptic ulcer disease, gastritis etc GI on board Continue IV Protonix Hb stable Monitor CBC Transition to p.o. PPI as able ADHD Schizoaffective disorder Past suicidal ideation One-to-one observation, suicide precautions Hold all antipsychotic medications for now Cannot leave AMA, [address] Currently on risperidone 0.25mg BID Psychiatry following Combined respiratory/metabolic acidosis Lactic acidosis Lactic acid levels trended down Received IV bicarbonate ANUEL H/O CPAP intolerance H/O Congenital nasal septal deviation S/P surgery per record DVT Px: SCDs Lovenox SQ Code Status Full code Admission and Anticipated Discharge Date Admission Date: March 25, 2023 Subjective Patient is seen and examined at bedside States feeling very tired today Nauseous overnight but resolved this morning Tolerating current diet States having minimal cough Discussed with ICU team today Also reports constipation No other complaints Denies any chest pain, dyspnea, abdominal pain Plan to be transferred out of ICU today Review of Systems Review of Systems: All systems reviewed & are unremarkable except as noted in Subjective Physical Exam Physical Exam: Physical Exam: Vitals signs as noted above General Appearance:Obese, no apparent distress Head: normocephalic, Atraumatic Eyes: normal inspection, EOMI Neck: supple, Trachea midline Respiratory/Chest: Decreased breath sounds, No accessory muscle use Cardiovascular: S1, S2, No murmur Abdomen/GI:Soft, Non tender, Bowel sounds present Extremities/Musculoskeletal:normal inspection, no edema Neurologic/Psych:Aler, awake, oriented, grossly no focal deficits Skin: normal color, warm Results & Data Results & Data Vital Signs (Past 12 Hours) Vital Signs Temp Pulse Resp BP Pulse Ox O2 Del Method O2 Flow Rate 04/01/23 12:48 36.6 C 04/01/23 12:01 126/83 04/01/23 12:01 78 17 92 Nasal Cannula 2 04/01/23 12:00 74 17 92 04/01/23 11:01 83 23 93 04/01/23 11:01 120/73 04/01/23 11:00 79 20 93 04/01/23 10:01 80 24 93 04/01/23 10:01 127/86 04/01/23 10:00 79 20 91 04/01/23 09:01 77 20 93 Nasal Cannula 2 04/01/23 09:01 108/75 04/01/23 09:00 72 19 93 04/01/23 08:29 76 16 93 04/01/23 08:29 117/75 04/01/23 08:01 73 21 91 04/01/23 08:01 117/67 04/01/23 08:00 78 20 93 04/01/23 07:01 77 15 94 04/01/23 07:01 116/77 04/01/23 07:00 79 17 92 04/01/23 04:01 81 17 90 04/01/23 04:01 111/64 04/01/23 04:00 36.8 C 73 13 91 04/01/23 03:01 85 21 92 04/01/23 03:01 98/67 L 04/01/23 03:00 76 23 92 04/01/23 02:01 74 14 94 04/01/23 02:01 114/69 04/01/23 02:00 75 19 93
--- NOTE | 2023-04-01 13:59 | Psychiatric Consultation ---
Date of Consultation April 01, 2023 Impression / Recommendations Impression 27 yo trans female with schizoaffective disorder bipolar type s/p Ativan and alcohol OD with aspiration, respiratory arrest and extended intubation, now extubated. Patient is currently pleasant and interactive, perhaps due to ketamine rx during ICU course? Can't exclude hypomania. 302 warrant while patient was intubated. Currently willing for voluntary care when medically cleared if not otherwise trumped by a rehab need. (1) Schizoaffective disorder, bipolar type: (2) Overdose by ingestion: (3) Aspiration pneumonitis due to regurgitated gastric secretions: Plan cannot leave AMA (new warrant would be obtained), continue 1 on1 given severity of OD and hx of psychosis/impulsivity. continue Risperdal and lamictal pending consultation with outpatient treating psychiatrist, for Dr. Celis at [phone]. CPT Code Overall, I spent a total of 62 minutes with this case, including review of c haddad, review of records, direct evaluation of the patient, counseling the patient, coordination with nursing,coordination of care with hospitalist service, coordination of care with outpatient provider, risk assessment, and documentation. Psych History Identifying Data 27 yo trans female prefers Ethel with she/her pronouns, [employer] student with hx of schizoaffective disorder, bipolar type who was treated on our unit in May 2022. Patient presented to the ED in respiratory arrest on 03/24/23. He's been sedated/intubated until yesterday pm. Chief Complaint "I had written that note to my parents and emailed it to a friend for a future date." History of Present Illness Patient ingested 15 mg of Ativan with alcohol and aspirated. He was surprisingly clear and jovial during today's assessment. He stated that he wanted to be "done" with his parents but otherwise "it's a long story" and did not elaborate as otherwise still on oxygen/short of breath. States surprise to have woken up but has denied SI in the immediate hospital stay and states will agree to inpatient care when medically cleared (assuming no need for physical rehab). Parents were outside of the door and she repeatedly stated she wanted them to leave. She does not want information shared or released and refused to read a hand written note mother prepared before leaving. She denies hallucinations though describes some delirium after the ingestion, "it's like I have a memory but it must have been a hallucination." Reviewed with patient they are currently on Lamictal and Risperdal 0.25 mg po BID as per ICU consultation with Dr. Jose Celis at [facility]. Therapy has been with [facility]. past med trials of lurasidone, luvox, modafinil for ADHD, Ritalin, trazodone, Caplyta, Ativan. previous psych hospitalizations in [place]--4-5 in midteens. [facility] as above May 2022. Allergies Allergy/AdvReac Type Severity Reaction Status Date / Time azithromycin [From Zithromax] Allergy Intermediate Rash Verified 03/24/23 23:31 Home Medications Medication Instructions Recorded Confirmed Type adalimumab 40 mg/0.4 mL 40 mg subcut DIRECTED 03/11/23 03/24/23 History subcutaneous pen kit (Humira(CF) Pen) finasteride 5 mg tablet 5 mg PO DAILY 03/11/23 03/24/23 History gabapentin 100 mg capsule 200 mg PO BID 03/11/23 03/24/23 History lamotrigine 25 mg tablet (Lamictal) 50 mg PO QPM 03/11/23 03/24/23 History lumateperone 42 mg capsule 42 mg PO QPM 03/11/23 03/24/23 History (Caplyta) spironolactone 50 mg tablet 50 mg PO BID 03/11/23 03/24/23 History estradiol 2 mg tablet 2 mg PO BID 03/24/23 03/24/23 History lorazepam 0.5 mg tablet 0.5 mg PO Q8 PRN Anxiety 03/24/23 03/24/23 History modafinil 100 mg tablet 100 mg PO DAILY 03/24/23 03/24/23 History omeprazole 40 mg capsule,delayed 40 mg PO QAM 03/24/23 03/24/23 History release trazodone 50 mg tablet 50 mg PO BID 03/24/23 03/24/23 History Patient History Medical History (Updated 04/01/23 @ 13:59 by Bhavana Porter MD) Schizoaffective disorder, bipolar type Encounter for pre-operative examination Vermiculation Suicidal ideations Rheumatoid arthritis Surgical History No significant past surgical history Family History Other Back pain Social History Smoking Status: Never smoker Second Hand Exposure: No; Do You Dip or Chew Tobacco: No; Preferred Language: [place] Communication Ability: Unable Communication Ability Comment: unable to assess currently intubated Lacquer Sizer Required: No Beliefs That Will Affect Care: None marital status: Single Current Living Situation: Alone Current Living Situation Comment: college student current occupational status: student Other Information That Helps Us Care for You: No Feels Safe at Home: Yes Safety Concerns: Feels Safe At This Time Gender Identity: Female Assistive Devices: None Physical Exam Psychiatric: Orientation: alert Apperance: appropriately groomed Eye Contact: good eye contact Motor Behavior: no abnormal motor movements Speech: normal rate/rhythm/volume of speech Affect: euthymic affect Mood: + depressed mood Thought Process: goal directed thought process Thought Content: reality based without delusions Suicidal Thoughts: denies suicidal thoughts Homicidal Thoughts: denies homicidal thoughts Hallucinations: no auditory hallucinations and no visual hallucinations Cognition: attention grossly intact and language grossly intact Estimated Intelligence: consistent with education level Insight: + limited insight Judgment: + limited judgement Vital Signs (Past 24 Hours): Last Vital Signs Temp 36.6 C 04/01/23 12:48 Pulse 78 04/01/23 12:01 Resp 17 04/01/23 12:01 BP 126/83 04/01/23 12:01 Pulse Ox 92 04/01/23 12:01 O2 Del Method Nasal Cannula 04/01/23 12:01 O2 Flow Rate 2 04/01/23 12:01 FiO2 40 03/31/23 12:00 Review of Systems All systems reviewed & are unremarkable except as noted in HPI & below Results & Data (PSY) Laboratory Results 04/01/23 04/01/23 04/01/23 Range/Units 12: 04:13 00:02 WBC 15.56 H (4.8-10.8) K/ul RBC 4.18 L (4.70-6.10) M/uL Hgb 10.7 L (14.0-18.0) g/dl Hct 32.9 L (42.0-52.0) % MCV 78.7 L (80.0-100.0) fL MCH 25.6 (25.0-34.0) pg MCHC 32.5 (32.0-36.0) g/dL RDW Std Deviation 50.1 H (36.4-46.3) fL RDW Coeff of Rene 17.8 H (11.5-14.5) % Plt Count 495 H (130-400) K/uL MPV 9.6 (9.4-12.4) fL Sodium 135 L (136-145) mmol/L Potassium 3.3 L (3.5-5.1) mmol/L Chloride 101 (98-107) mmol/L Carbon Dioxide 27 (21-32) mmol/L Anion Gap 7 (3-11) BUN 24 H (6-23) mg/dl Creatinine 0.76 (0.6-1.4) mg/dl Est Cr Clr Drug Dosing 214.9 ml/min Est GFR ( Amer) 147.0 ml/min Est GFR (Non-Af Amer) 126.8 ml/min BUN/Creatinine Ratio 31.6 H (10-20) Glucose 92 (70-99(Fasting)) mg/dl POC Glucose 80 97 (70-99) mg/dl Calcium 9.1 (8.6-10.3) mg/dl Phosphorus 2.3 L D (2.5-4.9) mg/dl Magnesium 2.0 (1.7-2.4) mg/dl 03/31/23 Range/Units 15:41 WBC (4.8-10.8) K/ul RBC (4.70-6.10) M/uL Hgb (14.0-18.0) g/dl Hct (42.0-52.0) % MCV (80.0-100.0) fL MCH (25.0-34.0) pg MCHC (32.0-36.0) g/dL RDW Std Deviation (36.4-46.3) fL RDW Coeff of Rene (11.5-14.5) % Plt Count (130-400) K/uL MPV (9.4-12.4) fL Sodium 136 (136-145) mmol/L Potassium 4.1 (3.5-5.1) mmol/L Chloride 100 (98-107) mmol/L Carbon Dioxide 30 (21-32) mmol/L Anion Gap 6 (3-11) BUN 26 H (6-23) mg/dl Creatinine 0.80 (0.6-1.4) mg/dl Est Cr Clr Drug Dosing 204.2 ml/min Est GFR ( Amer) 143.9 ml/min Est GFR (Non-Af Amer) 124.2 ml/min BUN/Creatinine Ratio 32.5 H (10-20) Glucose 121 H (70-99(Fasting)) mg/dl POC Glucose (70-99) mg/dl Calcium 9.2 (8.6-10.3) mg/dl Phosphorus (2.5-4.9) mg/dl Magnesium 2.1 (1.7-2.4) mg/dl Medications Administered Docusate Sodium (Docusate Sodium 100 Mg Cap) 100 mg PO BID KIKA Stop: 04/30/23 22:29 Last Admin: 04/01/23 09:02 Dose: 100 mg Documented By: Admin: 03/31/23 23:47 Dose: Not Given Documented By: HAIDER Enoxaparin Sodium (Enoxaparin Inj 40 Mg/0.4 Ml Syr) 40 mg SQ BID KIKA Stop: 04/24/23 11:29 Last Admin: 04/01/23 08:55 Dose: 40 mg Documented By: Admin: 03/31/23 20:37 Dose: 40 mg Documented By: Admin: 03/31/23 08:55 Dose: 40 mg Documented By: Admin: 03/30/23 20:38 Dose: 40 mg Documented By: Admin: 03/30/23 08:42 Dose: 40 mg Documented By: Admin: 03/29/23 20:37 Dose: 40 mg Documented By: Admin: 03/29/23 07:54 Dose: 40 mg Documented By: Admin: 03/28/23 20:05 Dose: 40 mg Documented By: Admin: 03/28/23 08:01 Dose: 40 mg Documented By: Admin: 03/27/23 20:34 Dose: 40 mg Documented By: Admin: 03/27/23 08:24 Dose: 40 mg Documented By: Admin: 03/26/23 21:13 Dose: 40 mg Documented By: CALLUM Furosemide (Furosemide 40 Mg Tab) 40 mg PO QAM KIKA Stop: 05/01/23 08:59 Last Admin: 04/01/23 10:14 Dose: 40 mg Documented By: CLARISSA Insulin Aspart (Insulin Aspart Per Unit Charge) 0 units SC ACHS [facility] Stop: 05/01/23 11:29 Last Admin: 04/01/23 13:07 Dose: Not Given Documented By: CLARISSA Menthol (Cough Drop (Sugar Free) Andrez 24 Andrez/1 Box) 1 andrez BUCCAL 6XD PRN PRN Reason: Cough Stop: 05/01/23 01:42 Last Admin: 04/01/23 02:50 Dose: 1 andrez Documented By: HAIDER Multivitamins/Minerals (Cerovite Adv Formula Tab) 1 tab PO QAM [facility] Stop: 05/01/23 08:59 Last Admin: 04/01/23 12:39 Dose: 1 tab Documented By: CLARISSA Ondansetron HCl (Ondansetron Inj 2 Mg/Ml 2 Ml Vial) 4 mg IV Q6H PRN PRN Reason: Nausea And Vomiting Stop: 05/01/23 02:06 Last Admin: 04/01/23 12:55 Dose: 4 mg Documented By: Admin: 04/01/23 02:50 Dose: 4 mg Documented By: HAIDER Oxycodone HCl (Oxycodone Hcl Ir 5 Mg Tab (Immediate Release)) 5 mg PO TID [facility] Stop: 04/15/23 08:59 Last Admin: 04/01/23 08:55 Dose: Not Given Documented By: CLARISSA Polyethylene Glycol (Polyethylene (Miralax) 17 Gm Pack) 17 gm PO DAILY KIKA Stop: 04/29/23 08:59 Last Admin: 04/01/23 08:54 Dose: 17 gm Documented By: Admin: 03/31/23 08:55 Dose: 17 gm Documented By: Admin: 03/30/23 08:40 Dose: 17 gm Documented By: OTILIO Risperidone (Risperidone 0.5 Mg Tablet) 0.25 mg PO BID [facility] Stop: 05/01/23 08:59 Last Admin: 04/01/23 08:53 Dose: 0.25 mg Documented By: CLARISSA Sennosides (Sennosides 8.8 Mg/5 Ml Udc) 17.2 mg PO DAILY [facility] Stop: 04/30/23 09:59 Last Admin: 04/01/23 08:54 Dose: 17.2 mg Documented By: Admin: 03/31/23 12:47 Dose: 17.2 mg Documented By: DANITA Coding Level of Care Code 40976 [facility] Intl Hosp Care Lvl 2 Diagnoses Schizoaffective disorder, bipolar type F25.0 Overdose by ingestion T50.901A Aspiration pneumonitis due to regurgitated gastric secretions J69.0
[2023-04-01] MEDS: LORazepam 0.5 MG TAB PO PRN (15:32)
[2023-04-01] MEDS: GABAPENTIN 100 MG CAP PO SCH (16:01)
[2023-04-01 16:48] LABS: Aspergillus Ag Index 0.08 (<0.50); Aspergillus Antigen, Serum Not Detected (Not Detected)
[2023-04-01] MEDS: lamoTRIgine 25 MG TAB PO SCH (21:00)
[2023-04-02] MEDS: LORazepam 0.5 MG TAB PO PRN (01:11)
[2023-04-02 05:22] LABS: Hematocrit (blood only) 37.8 % (42.0-52.0); Hemoglobin 12.2 g/dl (14.0-18.0); Mean Corpuscular Hemoglobin 25.5 pg (25.0-34.0); Mean Corpuscular Hgb Conc 32.3 g/dL (32.0-36.0); Mean Corpuscular Volume 78.9 fL (80.0-100.0); Mean Platelet Volume 9.2 fL (9.4-12.4); Platelet Count 511 K/uL (130-400); RDW Coefficient of Variation 18.3 % (11.5-14.5); RDW Standard Deviation 50.1 fL (36.4-46.3); Red Blood Count 4.79 M/uL (4.70-6.10)
[2023-04-02 05:33] LABS: BUN Creatinine Ratio 25.9 (10-20); Calcium 9.4 mg/dl (8.6-10.3); Creatinine Clr Calc Pharmacy 204.6 ml/min; Est GFR (African American) 140.4 ml/min; Est GFR (Non-African American) 121.1 ml/min; Phosphorus 2.9 mg/dl (2.5-4.9); Potassium 3.2 mmol/L (3.5-5.1)
[2023-04-02 08:13] LABS: Estimated Average Glucose 131 mg/dl; Hemoglobin A1C 6.2 % (4.5-5.6)
[2023-04-02] MEDS ORDERED: POTASSIUM CHLORIDE CRTAB 20 MEQ TABCR PO STA (09:08)
--- NOTE | 2023-04-02 09:10 | Hospitalist Progress Note ---
Date of Service April 02, 2023 Assessment & Plan (1) Hypotension: Plan: Acute metabolic encephalopathy Multifactorial: Toxic and metabolic: Drug overdose, alcohol intoxication, Anoxia Acute respiratory failure with hypoxia and Hypercarbia Suicide Attempt ARDS Aspiration pneumonia --Head CT: Normal head/brain CT. --EEG:study is quite abnormal showing generalized, irregular mixed amplitude slow activity. There were no focal abnormalities or potentially epileptogenic discharges seen. S/P Intubation CT chest suggestive of progressive airspace consolidation with air bronchograms within the dependent lower lobes, mild pulmonary edema Patient underwent flexible bronchoscopy with bronchial washings from right lung 03/29/23 Atracurium discontinued --S/P Extubation 03/31/23 Appreciate critical care input Psychiatry following Completed 7-day course of Unasyn IV Steroids discontinued IV Lasix transition to p.o. Lasix Saturating well on 2 L supplemental oxygen BAL no growth, rare GPC, eosinophils present. Follow-up cultures Downgraded out of ICU Currently on RA, +cough Aspiration pneumonia --CXR:Bilateral airspace opacities most pronounced on the left S/P bronchoscopy on 03/26/23 Aspiration precautions Completed Unasyn course Hypophosphatemia Hypocalcemia Hypokalemia Replete electrolytes as needed Monitor Bloody emesis Suspected upper GI bleed H/O NSAID esophagitis DD: Esophagitis, peptic ulcer disease, gastritis etc GI on board Continue IV Protonix Hb stable Monitor CBC Transition to p.o. PPI as able ADHD Schizoaffective disorder Past suicidal ideation One-to-one observation, suicide precautions Hold all antipsychotic medications for now Cannot leave AMA, [address] Currently on risperidone 0.25mg BID Psychiatry following Combined respiratory/metabolic acidosis Lactic acidosis Lactic acid levels trended down Received IV bicarbonate ANUEL H/O CPAP intolerance H/O Congenital nasal septal deviation S/P surgery per record DVT Px: SCDs Lovenox SQ Code Status Full code Admission and Anticipated Discharge Date Admission Date: March 25, 2023 Subjective Patient is seen in follow up of Suicidal attempt Extubated, currently on RA + cough Tolerating current diet + loose stools today Denies any chest pain, dyspnea, abdominal pain 1:1 sitter present Psychiatry consulted and following closely Review of Systems Review of Systems: All systems reviewed & are unremarkable except as noted in Subjective Physical Exam Physical Exam: General Appearance:Obese young M in no apparent distress Head: normocephalic, Atraumatic Eyes: normal inspection, EOMI Neck: supple, Trachea midline Respiratory/Chest: Decreased breath sounds, no wheezing, No accessory muscle use, +cough Cardiovascular: S1, S2, No murmur Abdomen/GI:Soft, Non tender, Bowel sounds present, soft, nontender Extremities/Musculoskeletal:normal inspection, no edema , moves extremities Neurologic/Psych:Alert, awake, oriented, cooperative, speech fluent, moves extremities Skin: normal color, warm Results & Data Results & Data Vital Signs (Past 12 Hours) Vital Signs Pulse Resp BP Pulse Ox 04/02/23 05:01 86 27 H 94 04/02/23 05:01 119/82 04/02/23 05:00 81 18 91 04/02/23 04:01 134/79 04/02/23 04:01 81 18 95 04/02/23 04:00 76 20 94 04/02/23 03:01 80 22 94 04/02/23 03:01 119/77 04/02/23 03:00 84 18 93 04/02/23 02:00 78 20 93 04/02/23 01:01 113/64 04/02/23 01:01 96 H 20 92 04/02/23 01:00 95 H 19 91 04/02/23 00:07 130/76 04/02/23 00:07 92 H 19 92 04/02/23 00:00 76 04/02/23 00:00 91 H 22 93 04/01/23 23:00 92 H 16 04/01/23 22:01 141/92 H 04/01/23 22:01 92 H 25 H 04/01/23 22:00 74 20 91 Laboratory Results 04/02/23 04/01/23 04/01/23 Range/Units 04:49 16:50 12:23 WBC 12.60 H (4.8-10.8) K/ul RBC 4.79 (4.70-6.10) M/uL Hgb 12.2 L (14.0-18.0) g/dl Hct 37.8 L (42.0-52.0) % MCV 78.9 L (80.0-100.0) fL MCH 25.5 (25.0-34.0) pg MCHC 32.3 (32.0-36.0) g/dL RDW Std Deviation 50.1 H (36.4-46.3) fL RDW Coeff of Rene 18.3 H (11.5-14.5) % Plt Count 511 H (130-400) K/uL MPV 9.2 L (9.4-12.4) fL Sodium 136 (136-145) mmol/L Potassium 3.2 L (3.5-5.1) mmol/L Chloride 102 (98-107) mmol/L Carbon Dioxide 24 (21-32) mmol/L Anion Gap 10 (3-11) BUN 22 (6-23) mg/dl Creatinine 0.85 (0.6-1.4) mg/dl Est Cr Clr Drug Dosing 204.6 ml/min Est GFR ( Amer) 140.4 ml/min Est GFR (Non-Af Amer) 121.1 ml/min BUN/Creatinine Ratio 25.9 H (10-20) Glucose 93 (70-99(Fasting)) mg/dl POC Glucose 93 80 (70-99) mg/dl Estimat Average Glucose 131 mg/dl Hemoglobin A1c 6.2 H (4.5-5.6) % Calcium 9.4 (8.6-10.3) mg/dl Phosphorus 2.9 (2.5-4.9) mg/dl Magnesium 2.0 (1.7-2.4) mg/dl A. galactomannan Ag (Not Detected) A. galactomannan Ag Idx (<0.50) Miscellaneous Test 03/29/23 03/29/23 Range/Units Unknown 12:05 WBC (4.8-10.8) K/ul RBC (4.70-6.10) M/uL Hgb (14.0-18.0) g/dl Hct (42.0-52.0) % MCV (80.0-100.0) fL MCH (25.0-34.0) pg MCHC (32.0-36.0) g/dL RDW Std Deviation (36.4-46.3) fL RDW Coeff of Rene (11.5-14.5) % Plt Count (130-400) K/uL MPV (9.4-12.4) fL Sodium (136-145) mmol/L Potassium (3.5-5.1) mmol/L Chloride (98-107) mmol/L Carbon Dioxide (21-32) mmol/L Anion Gap (3-11) BUN (6-23) mg/dl Creatinine (0.6-1.4) mg/dl Est Cr Clr Drug Dosing ml/min Est GFR ( Amer) ml/min Est GFR (Non-Af Amer) ml/min BUN/Creatinine Ratio (10-20) Glucose (70-99(Fasting)) mg/dl POC Glucose (70-99) mg/dl Estimat Average Glucose mg/dl Hemoglobin A1c (4.5-5.6) % Calcium (8.6-10.3) mg/dl Phosphorus (2.5-4.9) mg/dl Magnesium (1.7-2.4) mg/dl A. galactomannan Ag Not Detected (Not Detected) A. galactomannan Ag Idx 0.08 (<0.50) Miscellaneous Test See Scanned Report Medications Administered Current Inpatient Medications Benzocaine (Benzocaine 20% (Orajel) 11.9 Gm Tube) 1 appln MT Q6H PRN PRN Reason: Oral Pain Stop: 05/01/23 11:31 Dextrose (Dextrose 50% 50 Ml Syringe) 25 - 50 ml IV UD PRN; Protocol PRN Reason: Hypoglycemia Protocol Stop: 04/25/23 08:11 Docusate Sodium (Docusate Sodium 100 Mg Cap) 100 mg PO BID KIKA Stop: 04/30/23 22:29 Last Admin: 04/01/23 21:00 Dose: 100 mg Enoxaparin Sodium (Enoxaparin Inj 40 Mg/0.4 Ml Syr) 40 mg SQ BID [facility]A Stop: 04/24/23 11:29 Last Admin: 04/01/23 21:00 Dose: 40 mg Furosemide (Furosemide 40 Mg Tab) 40 mg PO QAM [facility] Stop: 05/01/23 08:59 Last Admin: 04/01/23 10:14 Dose: 40 mg Gabapentin (Gabapentin 100 Mg Cap) 200 mg PO BID@0800,1400 [facility] Stop: 05/01/23 13:59 Last Admin: 04/01/23 16:01 Dose: 200 mg Glucagon (Glucagon For Inj 1 Mg Vial) 1 mg SQ UD PRN; Protocol PRN Reason: Hypoglycemia Protocol Stop: 04/25/23 08:11 Glucose (Glucose 40% Gel 15 Gm Tube) 15 - 30 gm PO UD PRN; Protocol PRN Reason: Hypoglycemia Protocol Stop: 04/25/23 08:11 Glucose (Glucose 10 Tab/Tube) 4 - 8 tab PO UD PRN; Protocol PRN Reason: Hypoglycemia Treatment Stop: 04/25/23 08:11 Lamotrigine (Lamotrigine 25 Mg Tab) 50 mg PO QPM KIKA Stop: 05/01/23 20:59 Last Admin: 04/01/23 21:00 Dose: 50 mg Lorazepam (Lorazepam 0.5 Mg Tab) 0.5 mg PO Q8 PRN PRN Reason: Anxiety Stop: 05/01/23 09:22 Last Admin: 04/02/23 01:11 Dose: 0.5 mg Menthol (Cough Drop (Sugar Free) Andrez 24 Andrez/1 Box) 1 andrez BUCCAL 6XD PRN PRN Reason: Cough Stop: 05/01/23 01:42 Last Admin: 04/01/23 02:50 Dose: 1 andrez Miscellaneous (Carbohydrates For Hypoglycemia ) 15 - 30 gm PO UD PRN PRN Reason: Hypoglycemia Protocol Stop: 04/25/23 08:11 Multivitamins/Minerals (Cerovite Adv Formula Tab) 1 tab PO QAM KIKA Stop: 05/01/23 08:59 Last Admin: 04/01/23 12:39 Dose: 1 tab Ondansetron HCl (Ondansetron Inj 2 Mg/Ml 2 Ml Vial) 4 mg IV Q6H PRN PRN Reason: Nausea And Vomiting Stop: 05/01/23 02:06 Last Admin: 04/01/23 12:55 Dose: 4 mg Oxycodone HCl (Oxycodone Hcl Ir 5 Mg Tab (Immediate Release)) 5 mg PO TID K[facility]A Stop: 04/15/23 08:59 Last Admin: 04/01/23 21:00 Dose: 5 mg Pantoprazole Sodium (Pantoprazole 40 Mg Tab) 40 mg PO DAILY [facility] Stop: 05/02/23 08:59 Polyethylene Glycol (Polyethylene (Miralax) 17 Gm Pack) 17 gm PO DAILY [facility] Stop: 04/29/23 08:59 Last Admin: 04/01/23 08:54 Dose: 17 gm Potassium Chloride (Potassium Chloride Crtab 20 Meq Tabcr) 40 meq PO NOW STA Stop: 04/02/23 09:09 Risperidone (Risperidone 0.5 Mg Tablet) 0.25 mg PO BID [facility] Stop: 05/01/23 08:59 Last Admin: 04/01/23 21:00 Dose: 0.25 mg Sennosides (Sennosides 8.8 Mg/5 Ml Udc) 17.2 mg PO DAILY [facility] Stop: 04/30/23 09:59 Last Admin: 04/01/23 08:54 Dose: 17.2 mg
[2023-04-02] MEDS: GABAPENTIN 100 MG CAP PO SCH ×2 (09:36→13:52)
[2023-04-02] MEDS: ENOXAPARIN INJ 40 MG/0.4 ML SYR SQ SCH ×2 (09:37→20:40)
[2023-04-02] MEDS: DOCUSATE SODIUM 100 MG CAP PO SCH ×2 (09:37→20:39)
[2023-04-02] MEDS: FUROSEMIDE 40 MG TAB PO SCH (09:38)
[2023-04-02] MEDS: CEROVITE ADV FORMULA TAB PO SCH (09:38)
[2023-04-02] MEDS: oxyCODONE HCL IR 5 MG TAB (IMMEDIATE RELEASE) PO SCH ×3 (09:41→20:40)
[2023-04-02] MEDS: POLYETHYLENE (MIRALAX) 17 GM PACK PO SCH (09:42)
[2023-04-02] MEDS: risperiDONE 0.5 MG TABLET PO SCH ×2 (09:42→20:39)
[2023-04-02] MEDS: PANTOprazole 40 MG TAB PO SCH (09:44)
[2023-04-02] MEDS: SENNOSIDES 8.8 MG/5 ML UDC PO SCH (09:45)
[2023-04-02] MEDS: guaiFENesin 600 MG TABCR PO SCH ×2 (10:10→20:41)
--- NOTE | 2023-04-02 12:50 | Communication Note ---
Date of Service: April 02, 2023 interim progress reviewed. I had planned to titrate Risperdal as dose is quite low but patient continues to exhibit no active saba or psychosis and would prefer to have his roommate bring the Caplyta. Will hold at current dose pending emerging symptoms or additional input from outpatient psychiatrist (LM yesterday).
[2023-04-02] MEDS: lamoTRIgine 25 MG TAB PO SCH (20:35)
[2023-04-02] MEDS: ONDANSETRON INJ 2 MG/ML 2 ML VIAL IV PRN (23:47)
[2023-04-03] MEDS ORDERED: PROMETHAZINE HCL 12.5 MG in SODIUM CHLORIDE 0.9% 50 ML IV PRN (01:51)
[2023-04-03] MEDS: FAMOTIDINE 20 MG in SYRINGE 3 ML IV SCH ×3 (02:38→21:20)
[2023-04-03 04:52] LABS: Hematocrit (blood only) 36.5 % (42.0-52.0); Hemoglobin 11.8 g/dl (14.0-18.0); Mean Corpuscular Hemoglobin 25.4 pg (25.0-34.0); Mean Corpuscular Hgb Conc 32.3 g/dL (32.0-36.0); Mean Corpuscular Volume 78.5 fL (80.0-100.0); Mean Platelet Volume 9.1 fL (9.4-12.4); Platelet Count 529 K/uL (130-400); RDW Coefficient of Variation 18.8 % (11.5-14.5); RDW Standard Deviation 50.6 fL (36.4-46.3); Red Blood Count 4.65 M/uL (4.70-6.10); White Blood Count 15.39 K/ul (4.8-10.8)
[2023-04-03 05:16] LABS: BUN Creatinine Ratio 22.4 (10-20); Calcium 9.3 mg/dl (8.6-10.3); Creatinine Clr Calc Pharmacy 204.6 ml/min; Est GFR (African American) 140.4 ml/min; Est GFR (Non-African American) 121.1 ml/min; Magnesium 2.1 mg/dl (1.7-2.4); Phosphorus 4.4 mg/dl (2.5-4.9); Potassium 3.4 mmol/L (3.5-5.1)
--- NOTE | 2023-04-03 08:16 | Hospitalist Progress Note ---
Date of Service April 03, 2023 Assessment & Plan (1) Hypotension: Plan: Acute metabolic encephalopathy Multifactorial: Toxic and metabolic: Drug overdose, alcohol intoxication, Anoxia Acute respiratory failure with hypoxia and Hypercarbia Suicide Attempt ARDS Aspiration pneumonia --Head CT: Normal head/brain CT. --EEG:study is quite abnormal showing generalized, irregular mixed amplitude slow activity. There were no focal abnormalities or potentially epileptogenic discharges seen. S/P Intubation CT chest suggestive of progressive airspace consolidation with air bronchograms within the dependent lower lobes, mild pulmonary edema Patient underwent flexible bronchoscopy with bronchial washings from right lung 03/29/23 Atracurium discontinued --S/P Extubation 03/31/23 Appreciate critical care input Psychiatry following Completed 7-day course of Unasyn IV Steroids discontinued IV Lasix transition to p.o. Lasix Saturating well on 2 L supplemental oxygen BAL no growth, rare GPC, eosinophils present. Follow-up cultures Downgraded out of ICU Currently on RA, +cough Aspiration pneumonia --CXR:Bilateral airspace opacities most pronounced on the left S/P bronchoscopy on 03/26/23 Aspiration precautions Completed Unasyn course Hypophosphatemia Hypocalcemia Hypokalemia Replete electrolytes as needed Monitor Bloody emesis Suspected upper GI bleed H/O NSAID esophagitis DD: Esophagitis, peptic ulcer disease, gastritis etc GI on board Continue IV Protonix Hb stable Monitor CBC Transition to p.o. PPI as able ADHD Schizoaffective disorder Past suicidal ideation One-to-one observation, suicide precautions Hold all antipsychotic medications for now Cannot leave AMA, [address] Currently on risperidone and lamictal Psychiatry following - contacting pt's outpt psychiatrist Combined respiratory/metabolic acidosis Lactic acidosis Lactic acid levels trended down Received IV bicarbonate ANUEL H/O CPAP intolerance H/O Congenital nasal septal deviation S/P surgery per record DVT Px: SCDs Lovenox SQ Code Status Full code Admission and Anticipated Discharge Date Admission Date: March 25, 2023 Subjective Patient is seen in follow up of Suicidal attempt Extubated, currently on RA + cough + loose stools yesterday but now resolved Reports last evening he had "a lot of saliva coming out of his mouth". Pt feels cough is worsened. Ordered CXR. Denies any chest pain, dyspnea, abdominal pain 1:1 sitter present Psychiatry consulted and following closely Review of Systems Review of Systems: All systems reviewed & are unremarkable except as noted in Subjective Physical Exam Physical Exam: General Appearance:Obese young M in no apparent distress Head: normocephalic, Atraumatic Eyes: normal inspection, EOMI Neck: supple, Trachea midline Respiratory/Chest: Decreased breath sounds, no wheezing, No accessory muscle use, +cough Cardiovascular: S1, S2, No murmur Abdomen/GI:Soft, Non tender, Bowel sounds present, soft, nontender Extremities/Musculoskeletal:normal inspection, no edema , moves extremities Neurologic/Psych:Alert, awake, oriented, cooperative, speech fluent, moves extremities Skin: normal color, warm Results & Data Results & Data Vital Signs (Past 12 Hours) Vital Signs Pulse Resp BP 04/03/23 06:02 101 H 22 04/03/23 05:08 102 H 16 04/03/23 04:00 95 H 23 04/03/23 03:00 102 H 21 04/03/23 02:00 111 H 25 H 04/03/23 01:04 111/66 04/03/23 01:04 110 H 20 04/03/23 01:00 115 H 19 04/03/23 00:00 105 H 04/03/23 00:00 105 H 28 H 04/02/23 23:00 119 H 27 H 04/02/23 22:00 113 H 28 H 04/02/23 21:00 133 H 21 Laboratory Results 04/03/23 03/29/23 Range/Units 04:29 Unknown WBC 15.39 H (4.8-10.8) K/ul RBC 4.65 L (4.70-6.10) M/uL Hgb 11.8 L (14.0-18.0) g/dl Hct 36.5 L (42.0-52.0) % MCV 78.5 L (80.0-100.0) fL MCH 25.4 (25.0-34.0) pg MCHC 32.3 (32.0-36.0) g/dL RDW Std Deviation 50.6 H (36.4-46.3) fL RDW Coeff of Rene 18.8 H (11.5-14.5) % Plt Count 529 H (130-400) K/uL MPV 9.1 L (9.4-12.4) fL Sodium 138 (136-145) mmol/L Potassium 3.4 L (3.5-5.1) mmol/L Chloride 106 (98-107) mmol/L Carbon Dioxide 23 (21-32) mmol/L Anion Gap 9 (3-11) BUN 19 (6-23) mg/dl Creatinine 0.85 (0.6-1.4) mg/dl Est Cr Clr Drug Dosing 204.6 ml/min Est GFR ( Amer) 140.4 ml/min Est GFR (Non-Af Amer) 121.1 ml/min BUN/Creatinine Ratio 22.4 H (10-20) Glucose 99 (70-99(Fasting)) mg/dl Calcium 9.3 (8.6-10.3) mg/dl Phosphorus 4.4 D (2.5-4.9) mg/dl Magnesium 2.1 (1.7-2.4) mg/dl Miscellaneous Test See Scanned Report Medications Administered Current Inpatient Medications Benzocaine (Benzocaine 20% (Orajel) 11.9 Gm Tube) 1 appln MT Q6H PRN PRN Reason: Oral Pain Stop: 05/01/23 11:31 Dextrose (Dextrose 50% 50 Ml Syringe) 25 - 50 ml IV UD PRN; Protocol PRN Reason: Hypoglycemia Protocol Stop: 04/25/23 08:11 Docusate Sodium (Docusate Sodium 100 Mg Cap) 100 mg PO BID KIKA Stop: 04/30/23 22:29 Last Admin: 04/02/23 20:39 Dose: 100 mg Enoxaparin Sodium (Enoxaparin Inj 40 Mg/0.4 Ml Syr) 40 mg SQ BID [facility]IKA Stop: 04/24/23 11:29 Last Admin: 04/02/23 20:40 Dose: 40 mg Furosemide (Furosemide 40 Mg Tab) 40 mg PO QAM [facility]IKA Stop: 05/01/23 08:59 Last Admin: 04/02/23 09:38 Dose: 40 mg Gabapentin (Gabapentin 100 Mg Cap) 200 mg PO BID@0800,1400 [facility] Stop: 05/01/23 13:59 Last Admin: 04/02/23 13:52 Dose: 200 mg Glucagon (Glucagon For Inj 1 Mg Vial) 1 mg SQ UD PRN; Protocol PRN Reason: Hypoglycemia Protocol Stop: 04/25/23 08:11 Glucose (Glucose 40% Gel 15 Gm Tube) 15 - 30 gm PO UD PRN; Protocol PRN Reason: Hypoglycemia Protocol Stop: 04/25/23 08:11 Glucose (Glucose 10 Tab/Tube) 4 - 8 tab PO UD PRN; Protocol PRN Reason: Hypoglycemia Treatment Stop: 04/25/23 08:11 Guaifenesin (Guaifenesin 600 Mg Tabcr) 600 mg PO Q12 KIKA Stop: 05/02/23 09:09 Last Admin: 04/02/23 20:41 Dose: 600 mg Promethazine HCl 12.5 mg/ (Sodium Chloride) 50.5 mls @ 202 mls/hr IV Q6H PRN PRN Reason: Nausea And Vomiting Stop: 05/03/23 01:50 Last Infusion: 04/03/23 03:11 Dose: Infused Famotidine 20 mg/ Syringe 5 mls @ 2.5 mls/min IV BID KIKA Stop: 05/03/23 01:54 Last Admin: 04/03/23 02:38 Dose: 2.5 mls/min Lactobacillus Acidophilus (Advanced Probiotic 1250 Mg Capsule) 2 cap PO DAILY [facility] Stop: 05/03/23 08:59 Lamotrigine (Lamotrigine 25 Mg Tab) 50 mg PO QPM [facility]IKA Stop: 05/01/23 20:59 Last Admin: 04/02/23 20:35 Dose: 50 mg Lorazepam (Lorazepam 0.5 Mg Tab) 0.5 mg PO Q8 PRN PRN Reason: Anxiety Stop: 05/01/23 09:22 Last Admin: 04/02/23 01:11 Dose: 0.5 mg Menthol (Cough Drop (Sugar Free) Andrez 24 Andrez/1 Box) 1 andrez BUCCAL 6XD PRN PRN Reason: Cough Stop: 05/01/23 01:42 Last Admin: 04/01/23 02:50 Dose: 1 andrez Miscellaneous (Carbohydrates For Hypoglycemia ) 15 - 30 gm PO UD PRN PRN Reason: Hypoglycemia Protocol Stop: 04/25/23 08:11 Multivitamins/Minerals (Cerovite Adv Formula Tab) 1 tab PO QAM KIKA Stop: 05/01/23 08:59 Last Admin: 04/02/23 09:38 Dose: 1 tab Ondansetron HCl (Ondansetron Inj 2 Mg/Ml 2 Ml Vial) 4 mg IV Q6H PRN PRN Reason: Nausea And Vomiting Stop: 05/01/23 02:06 Last Admin: 04/02/23 23:47 Dose: 4 mg Oxycodone HCl (Oxycodone Hcl Ir 5 Mg Tab (Immediate Release)) 5 mg PO TID [facility] Stop: 04/15/23 08:59 Last Admin: 04/02/23 20:40 Dose: 5 mg Pantoprazole Sodium (Pantoprazole 40 Mg Tab) 40 mg PO DAILY [facility] Stop: 05/02/23 08:59 Last Admin: 04/02/23 09:44 Dose: 40 mg Polyethylene Glycol (Polyethylene (Miralax) 17 Gm Pack) 17 gm PO DAILY [facility] Stop: 04/29/23 08:59 Last Admin: 04/02/23 09:42 Dose: Not Given Risperidone (Risperidone 0.5 Mg Tablet) 0.25 mg PO BID [facility] Stop: 05/01/23 08:59 Last Admin: 04/02/23 20:39 Dose: 0.25 mg Sennosides (Sennosides 8.8 Mg/5 Ml Udc) 17.2 mg PO DAILY [facility] Stop: 04/30/23 09:59 Last Admin: 04/02/23 09:45 Dose: Not Given
[2023-04-03] MEDS ORDERED: POTASSIUM CHLORIDE CRTAB 20 MEQ TABCR PO STA (08:18)
[2023-04-03] MEDS: DOCUSATE SODIUM 100 MG CAP PO SCH ×2 (08:51→21:11)
[2023-04-03] MEDS: GABAPENTIN 100 MG CAP PO SCH ×2 (08:51→14:15)
[2023-04-03] MEDS: ENOXAPARIN INJ 40 MG/0.4 ML SYR SQ SCH ×2 (08:51→21:18)
[2023-04-03] MEDS: FUROSEMIDE 40 MG TAB PO SCH (08:53)
[2023-04-03] MEDS: CEROVITE ADV FORMULA TAB PO SCH (08:54)
[2023-04-03] MEDS: guaiFENesin 600 MG TABCR PO SCH ×2 (08:54→21:22)
[2023-04-03] MEDS: ADVANCED PROBIOTIC 1250 MG CAPSULE PO SCH (08:54)
[2023-04-03] MEDS: PANTOprazole 40 MG TAB PO SCH (08:54)
[2023-04-03] MEDS: risperiDONE 0.5 MG TABLET PO SCH ×2 (08:55→21:21)
[2023-04-03] MEDS: POLYETHYLENE (MIRALAX) 17 GM PACK PO SCH (08:55)
[2023-04-03] MEDS: SENNOSIDES 8.8 MG/5 ML UDC PO SCH (08:56)
[2023-04-03] MEDS: oxyCODONE HCL IR 5 MG TAB (IMMEDIATE RELEASE) PO SCH ×3 (08:57→21:17)
[2023-04-03] MEDS ORDERED: POTASSIUM CHLORIDE 20 MEQ/15 ML UDC PO STA (10:57)
--- NOTE | 2023-04-03 12:35 | XRay Report ---
XR chest 1V portable CLINICAL HISTORY: cough, post extubation COMPARISON STUDY: Chest CT March 30, 2023. Chest radiograph March 31, 2023. FINDINGS: The endotracheal and nasogastric tubes have been removed. Low lung volumes are again noted. This is unchanged. There is no pneumothorax or pleural effusion. Bilateral airspace opacities have i mproved. IMPRESSION: 1. Interval improvement in bilateral airspace opacities. 2. No pneumothorax. No pleural effusion. ACT 112: Negative or not required by law. Electronically signed by: Cuate You M.D. 04/03/2023 12:34 PM
--- NOTE | 2023-04-03 13:42 | Psychiatric Progress Note ---
Date of Service April 03, 2023 Impression / Recommendations Impression 27 yo transgender woman with schizoaffective disorder bipolar type s/p Ativan and alcohol OD with aspiration, respiratory arrest and extended intubation, now extubated. Currently willing for voluntary care when medically cleared if not otherwise trumped by a physical rehab need. 04/03/2023: Mood remains stable, remains agreeable to psychiatric treatment, biggest source of current distress is ongoing cough. Overall, I spent a total of 45 minutes with this case including review of chart records, direct evaluation of the patient at bedside, counseling the patient, discussion with the psychiatric liason during clinical rounds and documentation in the electronic health record. (1) Schizoaffective disorder, bipolar type: (2) Overdose by ingestion: (3) Aspiration pneumonitis due to regurgitated gastric secretions: (4) Suicide attempt: Plan continue 1-on-1 with suicide risk precautions given severity of OD and hx of psychosis/impulsivity. cannot leave AMA (new warrant would be obtained) continue Risperda 0.25mg bidl and lamictal 50mg qpm Interval History Identifying Information 27 yo transgender woman, prefers Ethel with she/her pronouns, [employer] student with hx of schizoaffective disorder, bipolar type who was treated on our unit in May 2022. Patient presented to the ED in respiratory arrest on 03/24/23 following suicide attempt. Psychiatry consulted for risk assessment. Chief Complaint "I'm ok, just coughing a lot". Subjective Subjective Patient was seen & assessed and interval progress reviewed. She doesn'tt have roommates phone number so can't get Captlyta but no side effects from risperidone. Slept a little last night. Denies current SI but speaks peripherally of recent stressors, agrees she sent emails which I had previously reviewed which are in the chart. Physical Exam Psychiatric Orientation: alert, oriented to person, oriented to place, oriented to time and cooperative Apperance: appropriately groomed Eye Contact: good eye contact Motor Behavior: no abnormal motor movements Speech: normal rate/rhythm/volume of speech Affect: + constricted affect Mood: + depressed mood and + anxious mood Thought Process: goal directed thought process Thought Content: reality based without delusions Suicidal Thoughts: denies suicidal thoughts Homicidal Thoughts: denies homicidal thoughts Hallucinations: no auditory hallucinations and no visual hallucinations Cognition: attention grossly intact and language grossly intact Estimated Intelligence: consistent with education level Insight: + limited insight Judgment: + limited judgement Vital Signs (Past 24 Hours) Last Vital Signs Temp 36.8 C 04/03/23 08:00 Pulse 98 H 04/03/23 13:07 Resp 14 04/03/23 13:07 BP 124/69 04/03/23 08:44 Pulse Ox 93 04/02/23 16:00 O2 Del Method Nasal Cannula 04/01/23 20:00 O2 Flow Rate 2 04/01/23 20:00 FiO2 40 03/31/23 12:00 Results & Data ([facility]) Laboratory Results Laboratory Results - last 24 hr 04/03/23 04:29 WBC 15.39 H RBC 4.65 L Hgb 11.8 L Hct 36.5 L MCV 78.5 L MCH 25.4 MCHC 32.3 RDW Std Deviation 50.6 H RDW Coeff of Rene 18.8 H Plt Count 529 H MPV 9.1 L Sodium 138 Potassium 3.4 L Chloride 106 Carbon Dioxide 23 Anion Gap 9 BUN 19 Creatinine 0.85 Est Cr Clr Drug Dosing 204.6 Est GFR ( Amer) 140.4 Est GFR (Non-Af Amer) 121.1 BUN/Creatinine Ratio 22.4 H Glucose 99 Calcium 9.3 Phosphorus 4.4 D Magnesium 2.1 Current Inpatient Medications Current Inpatient Medications: Current Inpatient Medications Benzocaine (Benzocaine 20% (Orajel) 11.9 Gm Tube) 1 appln MT Q6H PRN PRN Reason: Oral Pain Stop: 05/01/23 11:31 Dextrose (Dextrose 50% 50 Ml Syringe) 25 - 50 ml IV UD PRN; Protocol PRN Reason: Hypoglycemia Protocol Stop: 04/25/23 08:11 Docusate Sodium (Docusate Sodium 100 Mg Cap) 100 mg PO BID [facility] Stop: 04/30/23 22:29 Last Admin: 04/03/23 08:51 Dose: Not Given Enoxaparin Sodium (Enoxaparin Inj 40 Mg/0.4 Ml Syr) 40 mg SQ BID [facility] Stop: 04/24/23 11:29 Last Admin: 04/03/23 08:51 Dose: 40 mg Furosemide (Furosemide 40 Mg Tab) 40 mg PO QAM [facility] Stop: 05/01/23 08:59 Last Admin: 04/03/23 08:53 Dose: 40 mg Gabapentin (Gabapentin 100 Mg Cap) 200 mg PO BID@0800,1400 [facility] Stop: 05/01/23 13:59 Last Admin: 04/03/23 08:51 Dose: 200 mg Glucagon (Glucagon For Inj 1 Mg Vial) 1 mg SQ UD PRN; Protocol PRN Reason: Hypoglycemia Protocol Stop: 04/25/23 08:11 Glucose (Glucose 40% Gel 15 Gm Tube) 15 - 30 gm PO UD PRN; Protocol PRN Reason: Hypoglycemia Protocol Stop: 04/25/23 08:11 Glucose (Glucose 10 Tab/Tube) 4 - 8 tab PO UD PRN; Protocol PRN Reason: Hypoglycemia Treatment Stop: 04/25/23 08:11 Guaifenesin (Guaifenesin 600 Mg Tabcr) 600 mg PO Q12 [facility] Stop: 05/02/23 09:09 Last Admin: 04/03/23 08:54 Dose: 600 mg Promethazine HCl 12.5 mg/ (Sodium Chloride) 50.5 mls @ 202 mls/hr IV Q6H PRN PRN Reason: Nausea And Vomiting Stop: 05/03/23 01:50 Last Infusion: 04/03/23 03:11 Dose: Infused Famotidine 20 mg/ Syringe 5 mls @ 2.5 mls/min IV BID [facility] Stop: 05/03/23 01:54 Last Admin: 04/03/23 11:10 Dose: 2.5 mls/min Lactobacillus Acidophilus (Advanced Probiotic 1250 Mg Capsule) 2 cap PO DAILY [facility] Stop: 05/03/23 08:59 Last Admin: 04/03/23 08:54 Dose: 2 cap Lamotrigine (Lamotrigine 25 Mg Tab) 50 mg PO QPM [facility] Stop: 05/01/23 20:59 Last Admin: 04/02/23 20:35 Dose: 50 mg Lorazepam (Lorazepam 0.5 Mg Tab) 0.5 mg PO Q8 PRN PRN Reason: Anxiety Stop: 05/01/23 09:22 Last Admin: 04/02/23 01:11 Dose: 0.5 mg Menthol (Cough Drop (Sugar Free) Andrez 24 Andrez/1 Box) 1 andrez BUCCAL 6XD PRN PRN Reason: Cough Stop: 05/01/23 01:42 Last Admin: 04/01/23 02:50 Dose: 1 andrez Miscellaneous (Carbohydrates For Hypoglycemia ) 15 - 30 gm PO UD PRN PRN Reason: Hypoglycemia Protocol Stop: 04/25/23 08:11 Multivitamins/Minerals (Cerovite Adv Formula Tab) 1 tab PO QAM KIKA Stop: 05/01/23 08:59 Last Admin: 04/03/23 08:54 Dose: 1 tab Ondansetron HCl (Ondansetron Inj 2 Mg/Ml 2 Ml Vial) 4 mg IV Q6H PRN PRN Reason: Nausea And Vomiting Stop: 05/01/23 02:06 Last Admin: 04/02/23 23:47 Dose: 4 mg Oxycodone HCl (Oxycodone Hcl Ir 5 Mg Tab (Immediate Release)) 5 mg PO TID [facility] Stop: 04/15/23 08:59 Last Admin: 04/03/23 08:57 Dose: 5 mg Pantoprazole Sodium (Pantoprazole 40 Mg Tab) 40 mg PO DAILY [facility] Stop: 05/02/23 08:59 Last Admin: 04/03/23 08:54 Dose: 40 mg Polyethylene Glycol (Polyethylene (Miralax) 17 Gm Pack) 17 gm PO DAILY [facility] Stop: 04/29/23 08:59 Last Admin: 04/03/23 08:55 Dose: Not Given Risperidone (Risperidone 0.5 Mg Tablet) 0.25 mg PO BID [facility] Stop: 05/01/23 08:59 Last Admin: 04/03/23 08:55 Dose: 0.25 mg Sennosides (Sennosides 8.8 Mg/5 Ml Udc) 17.2 mg PO DAILY [facility] Stop: 04/30/23 09:59 Last Admin: 04/03/23 08:56 Dose: Not Given
[2023-04-03] MEDS: BENZONATATE 100 MG CAPSULE PO SCH ×2 (16:38→21:22)
[2023-04-03 18:27] LABS: Aspergillus Flavus Negative (Negative); Aspergillus Niger Negative (Negative)
[2023-04-03] MEDS: lamoTRIgine 25 MG TAB PO SCH (21:22)
[2023-04-04 05:19] LABS: Hematocrit (blood only) 38.9 % (42.0-52.0); Hemoglobin 12.4 g/dl (14.0-18.0); Mean Corpuscular Hemoglobin 25.4 pg (25.0-34.0); Mean Corpuscular Hgb Conc 31.9 g/dL (32.0-36.0); Mean Corpuscular Volume 79.6 fL (80.0-100.0); Mean Platelet Volume 9.2 fL (9.4-12.4); Platelet Count 550 K/uL (130-400); RDW Coefficient of Variation 19.4 % (11.5-14.5); RDW Standard Deviation 51.7 fL (36.4-46.3); Red Blood Count 4.89 M/uL (4.70-6.10); White Blood Count 14.11 K/ul (4.8-10.8)
[2023-04-04 05:43] LABS: BUN Creatinine Ratio 21.9 (10-20); Calcium 9.4 mg/dl (8.6-10.3); Creatinine Clr Calc Pharmacy 172.7 ml/min; Est GFR (African American) 126.8 ml/min; Est GFR (Non-African American) 109.4 ml/min; Magnesium 2.2 mg/dl (1.7-2.4); Phosphorus 4.3 mg/dl (2.5-4.9); Potassium 3.5 mmol/L (3.5-5.1)
--- NOTE | 2023-04-04 07:30 | Hospitalist Progress Note ---
Date of Service April 04, 2023 Assessment & Plan (1) Hypotension: Plan: Acute metabolic encephalopathy Multifactorial: Toxic and metabolic: Drug overdose, alcohol intoxication, Anoxia Acute respiratory failure with hypoxia and Hypercarbia Suicide Attempt ARDS Aspiration pneumonia --Head CT: Normal head/brain CT. --EEG:study is quite abnormal showing generalized, irregular mixed amplitude slow activity. There were no focal abnormalities or potentially epileptogenic discharges seen. S/P Intubation CT chest suggestive of progressive airspace consolidation with air bronchograms within the dependent lower lobes, mild pulmonary edema Patient underwent flexible bronchoscopy with bronchial washings from right lung 03/29/23 Atracurium discontinued --S/P Extubation 03/31/23 Appreciate critical care input Psychiatry following Completed 7-day course of Unasyn IV Steroids discontinued IV Lasix transition to p.o. Lasix -> now on hold as fluid status seems now at baseline BAL no growth, rare GPC, eosinophils present. Follow-up cultures Downgraded out of ICU Currently on RA, +cough Galactomannan Ag posit 0.87 - discussed this w/ ID - no treatment at this time - cont. to monitor the pt Aspiration pneumonia --CXR:Bilateral airspace opacities most pronounced on the left S/P bronchoscopy on 03/26/23 Aspiration precautions Completed Unasyn course repeat CXR obtained - opacity improved Hypophosphatemia Hypocalcemia Hypokalemia Replete electrolytes as needed Monitor Bloody emesis Suspected upper GI bleed H/O NSAID esophagitis DD: Esophagitis, peptic ulcer disease, gastritis etc GI on board Continue IV Protonix Hb stable Monitor CBC Transition to p.o. PPI as able ADHD Schizoaffective disorder Past suicidal ideation One-to-one observation, suicide precautions Hold all antipsychotic medications for now Cannot leave AMA, [address] Currently on risperidone and lamictal Psychiatry following - contacting pt's outpt psychiatrist Combined respiratory/metabolic acidosis Lactic acidosis Lactic acid levels trended down Received IV bicarbonate ANUEL H/O CPAP intolerance H/O Congenital nasal septal deviation S/P surgery per record DVT Px: SCDs Lovenox SQ Code Status Full code Admission and Anticipated Discharge Date Admission Date: March 25, 2023 Subjective Patient is seen in follow up of Suicidal attempt Extubated, currently on RA + cough Denies any chest pain, dyspnea, abdominal pain 1:1 sitter present Psychiatry consulted and following closely cough w/ eating -> speech eval obtained - video swallow tmrw, also recommend ENT eval Review of Systems Review of Systems: All systems reviewed & are unremarkable except as noted in Subjective Physical Exam Physical Exam: General Appearance:Obese young M in no apparent distress Head: normocephalic, Atraumatic Eyes: normal inspection, EOMI Neck: supple, Trachea midline Respiratory/Chest: Decreased breath sounds, no wheezing, No accessory muscle use, +cough Cardiovascular: S1, S2, No murmur Abdomen/GI:Soft, Non tender, Bowel sounds present, soft, nontender Extremities/Musculoskeletal:normal inspection, no edema , moves extremities Neurologic/Psych:Alert, awake, oriented, cooperative, speech fluent, moves extremities Skin: normal color, warm Results & Data Results & Data Vital Signs (Past 12 Hours) Vital Signs Temp Pulse Pulse Resp BP BP Pulse Ox 04/04/23 07:17 96 H 04/04/23 04:23 36.8 C 89 18 107/68 93 04/04/23 01:41 37.0 C 110 H 20 113/74 94 04/04/23 01:30 04/04/23 01:28 118 H 04/04/23 00:00 88 04/03/23 23:04 37.7 C H 87 22 123/70 93 04/03/23 20:00 O2 Del Method 04/04/23 07:17 04/04/23 04:23 Room Air 04/04/23 01:41 Room Air 04/04/23 01:30 Room Air 04/04/23 01:28 04/04/23 00:00 04/03/23 23:04 Room Air 04/03/23 20:00 Room Air Laboratory Results 04/04/23 04/04/23 04/03/23 Range/Units 05:39 04:53 20:29 WBC 14.11 H (4.8-10.8) K/ul RBC 4.89 (4.70-6.10) M/uL Hgb 12.4 L (14.0-18.0) g/dl Hct 38.9 L (42.0-52.0) % MCV 79.6 L (80.0-100.0) fL MCH 25.4 (25.0-34.0) pg MCHC 31.9 L (32.0-36.0) g/dL RDW Std Deviation 51.7 H (36.4-46.3) fL RDW Coeff of Rene 19.4 H (11.5-14.5) % Plt Count 550 H (130-400) K/uL MPV 9.2 L (9.4-12.4) fL Sodium 137 (136-145) mmol/L Potassium 3.5 (3.5-5.1) mmol/L Chloride 104 (98-107) mmol/L Carbon Dioxide 24 (21-32) mmol/L Anion Gap 9 (3-11) BUN 21 (6-23) mg/dl Creatinine 0.96 (0.6-1.4) mg/dl Est Cr Clr Drug Dosing 172.7 ml/min Est GFR ( Amer) 126.8 ml/min Est GFR (Non-Af Amer) 109.4 ml/min BUN/Creatinine Ratio 21.9 H (10-20) Glucose 98 (70-99(Fasting)) mg/dl POC Glucose 98 107 H (70-99) mg/dl Calcium 9.4 (8.6-10.3) mg/dl Phosphorus 4.3 (2.5-4.9) mg/dl Magnesium 2.2 (1.7-2.4) mg/dl BAL A.galactomannan Ag (Not Detected) BAL A.galactomann Index (<0.50) Aspergillus flavus Ab (Negative) Aspergill fumigatus Ab (Negative) Aspergillus niger Ab (Negative) Beta-(1,3)-D-Glucan pg/mL B-(1,3)-D-Glucan Intrp 03/29/23 03/29/23 Range/Units Unknown 12:05 WBC (4.8-10.8) K/ul RBC (4.70-6.10) M/uL Hgb (14.0-18.0) g/dl Hct (42.0-52.0) % MCV (80.0-100.0) fL MCH (25.0-34.0) pg MCHC (32.0-36.0) g/dL RDW Std Deviation (36.4-46.3) fL RDW Coeff of Rene (11.5-14.5) % Plt Count (130-400) K/uL MPV (9.4-12.4) fL Sodium (136-145) mmol/L Potassium (3.5-5.1) mmol/L Chloride (98-107) mmol/L Carbon Dioxide (21-32) mmol/L Anion Gap (3-11) BUN (6-23) mg/dl Creatinine (0.6-1.4) mg/dl Est Cr Clr Drug Dosing ml/min Est GFR ( Amer) ml/min Est GFR (Non-Af Amer) ml/min BUN/Creatinine Ratio (10-20) Glucose (70-99(Fasting)) mg/dl POC Glucose (70-99) mg/dl Calcium (8.6-10.3) mg/dl Phosphorus (2.5-4.9) mg/dl Magnesium (1.7-2.4) mg/dl BAL A.galactomannan Ag Detected A* (Not Detected) BAL A.galactomann Index 0.87 H (<0.50) Aspergillus flavus Ab Negative (Negative) Aspergill fumigatus Ab Negative (Negative) Aspergillus niger Ab Negative (Negative) Beta-(1,3)-D-Glucan pg/mL B-(1,3)-D-Glucan Intrp Medications Administered Current Inpatient Medications Benzocaine (Benzocaine 20% (Orajel) 11.9 Gm Tube) 1 appln MT Q6H PRN PRN Reason: Oral Pain Stop: 05/01/23 11:31 Benzonatate (Benzonatate 100 Mg Capsule) 100 mg PO TID KIKA Stop: 05/03/23 16:19 Last Admin: 04/03/23 21:22 Dose: 100 mg Dextrose (Dextrose 50% 50 Ml Syringe) 25 - 50 ml IV UD PRN; Protocol PRN Reason: Hypoglycemia Protocol Stop: 04/25/23 08:11 Docusate Sodium (Docusate Sodium 100 Mg Cap) 100 mg PO BID KIKA Stop: 04/30/23 22:29 Last Admin: 04/03/23 21:11 Dose: Not Given Enoxaparin Sodium (Enoxaparin Inj 40 Mg/0.4 Ml Syr) 40 mg SQ BID KIKA Stop: 04/24/23 11:29 Last Admin: 04/03/23 21:18 Dose: 40 mg Furosemide (Furosemide 40 Mg Tab) 40 mg PO QAM KIKA Stop: 05/01/23 08:59 Last Admin: 04/03/23 08:53 Dose: 40 mg Gabapentin (Gabapentin 100 Mg Cap) 200 mg PO BID@0800,1400 KIKA Stop: 05/01/23 13:59 Last Admin: 04/03/23 14:15 Dose: 200 mg Glucagon (Glucagon For Inj 1 Mg Vial) 1 mg SQ UD PRN; Protocol PRN Reason: Hypoglycemia Protocol Stop: 04/25/23 08:11 Glucose (Glucose 40% Gel 15 Gm Tube) 15 - 30 gm PO UD PRN; Protocol PRN Reason: Hypoglycemia Protocol Stop: 04/25/23 08:11 Glucose (Glucose 10 Tab/Tube) 4 - 8 tab PO UD PRN; Protocol PRN Reason: Hypoglycemia Treatment Stop: 04/25/23 08:11 Guaifenesin (Guaifenesin 600 Mg Tabcr) 600 mg PO Q12 KIKA Stop: 05/02/23 09:09 Last Admin: 04/03/23 21:22 Dose: 600 mg Promethazine HCl 12.5 mg/ (Sodium Chloride) 50.5 mls @ 202 mls/hr IV Q6H PRN PRN Reason: Nausea And Vomiting Stop: 05/03/23 01:50 Last Infusion: 04/03/23 03:11 Dose: Infused Famotidine 20 mg/ Syringe 5 mls @ 2.5 mls/min IV BID KIKA Stop: 05/03/23 01:54 Last Admin: 04/03/23 21:20 Dose: 2.5 mls/min Lactobacillus Acidophilus (Advanced Probiotic 1250 Mg Capsule) 2 cap PO DAILY KIKA Stop: 05/03/23 08:59 Last Admin: 04/03/23 08:54 Dose: 2 cap Lamotrigine (Lamotrigine 25 Mg Tab) 50 mg PO QPM KIKA Stop: 05/01/23 20:59 Last Admin: 04/03/23 21:22 Dose: 50 mg Lorazepam (Lorazepam 0.5 Mg Tab) 0.5 mg PO Q8 PRN PRN Reason: Anxiety Stop: 05/01/23 09:22 Last Admin: 04/02/23 01:11 Dose: 0.5 mg Menthol (Cough Drop (Sugar Free) Andrez 24 Andrez/1 Box) 1 andrez BUCCAL 6XD PRN PRN Reason: Cough Stop: 05/01/23 01:42 Last Admin: 04/01/23 02:50 Dose: 1 andrez Miscellaneous (Carbohydrates For Hypoglycemia ) 15 - 30 gm PO UD PRN PRN Reason: Hypoglycemia Protocol Stop: 04/25/23 08:11 Multivitamins/Minerals (Cerovite Adv Formula Tab) 1 tab PO QAM KIKA Stop: 05/01/23 08:59 Last Admin: 04/03/23 08:54 Dose: 1 tab Ondansetron HCl (Ondansetron Inj 2 Mg/Ml 2 Ml Vial) 4 mg IV Q6H PRN PRN Reason: Nausea And Vomiting Stop: 05/01/23 02:06 Last Admin: 04/02/23 23:47 Dose: 4 mg Oxycodone HCl (Oxycodone Hcl Ir 5 Mg Tab (Immediate Release)) 5 mg PO TID [facility] Stop: 04/15/23 08:59 Last Admin: 04/03/23 21:17 Dose: 5 mg Pantoprazole Sodium (Pantoprazole 40 Mg Tab) 40 mg PO DAILY [facility] Stop: 05/02/23 08:59 Last Admin: 04/03/23 08:54 Dose: 40 mg Polyethylene Glycol (Polyethylene (Miralax) 17 Gm Pack) 17 gm PO DAILY KIKA Stop: 04/29/23 08:59 Last Admin: 04/03/23 08:55 Dose: Not Given Potassium Chloride (Potassium Chloride Pwd 20 Meq Pack) 40 meq PO ONE ONE Stop: 04/04/23 07:29 Risperidone (Risperidone 0.5 Mg Tablet) 0.25 mg PO BID [facility] Stop: 05/01/23 08:59 Last Admin: 04/03/23 21:21 Dose: 0.25 mg Sennosides (Sennosides 8.8 Mg/5 Ml Udc) 17.2 mg PO DAILY [facility] Stop: 04/30/23 09:59 Last Admin: 04/03/23 08:56 Dose: Not Given
[2023-04-04] MEDS ORDERED: POTASSIUM CHLORIDE PWD 20 MEQ PACK PO ONE (07:45)
[2023-04-04] MEDS: BENZONATATE 100 MG CAPSULE PO SCH ×3 (07:59→20:35)
[2023-04-04] MEDS: risperiDONE 0.5 MG TABLET PO SCH ×2 (07:59→20:37)
[2023-04-04] MEDS: guaiFENesin 600 MG TABCR PO SCH ×2 (07:59→20:35)
[2023-04-04] MEDS: oxyCODONE HCL IR 5 MG TAB (IMMEDIATE RELEASE) PO SCH ×3 (07:59→20:36)
[2023-04-04] MEDS: DOCUSATE SODIUM 100 MG CAP PO SCH ×2 (07:59→20:38)
[2023-04-04] MEDS: GABAPENTIN 100 MG CAP PO SCH ×2 (08:00→14:14)
[2023-04-04] MEDS: ENOXAPARIN INJ 40 MG/0.4 ML SYR SQ SCH ×2 (08:00→20:35)
[2023-04-04] MEDS: ADVANCED PROBIOTIC 1250 MG CAPSULE PO SCH (08:00)
[2023-04-04] MEDS: PANTOprazole 40 MG TAB PO SCH (08:01)
[2023-04-04] MEDS: FUROSEMIDE 40 MG TAB PO SCH (08:01)
[2023-04-04] MEDS: POLYETHYLENE (MIRALAX) 17 GM PACK PO SCH (08:01)
[2023-04-04] MEDS: CEROVITE ADV FORMULA TAB PO SCH (08:01)
[2023-04-04] MEDS: SENNOSIDES 8.8 MG/5 ML UDC PO SCH (08:01)
[2023-04-04] MEDS: FAMOTIDINE 20 MG in SYRINGE 3 ML IV SCH ×2 (09:22→20:38)
[2023-04-04] MEDS: lamoTRIgine 25 MG TAB PO SCH (20:36)
[2023-04-05 08:03] LABS: Hematocrit (blood only) 43.1 % (42.0-52.0); Hemoglobin 13.9 g/dl (14.0-18.0); Mean Corpuscular Hemoglobin 25.4 pg (25.0-34.0); Mean Corpuscular Hgb Conc 32.3 g/dL (32.0-36.0); Mean Corpuscular Volume 78.8 fL (80.0-100.0); Mean Platelet Volume 9.6 fL (9.4-12.4); Platelet Count 650 K/uL (130-400); RDW Coefficient of Variation 19.9 % (11.5-14.5); RDW Standard Deviation 53.1 fL (36.4-46.3); Red Blood Count 5.47 M/uL (4.70-6.10); White Blood Count 14.13 K/ul (4.8-10.8)
[2023-04-05 08:33] LABS: BUN Creatinine Ratio 22.9 (10-20); Calcium 9.7 mg/dl (8.6-10.3); Creatinine Clr Calc Pharmacy 157.1 ml/min; Est GFR (African American) 113.8 ml/min; Est GFR (Non-African American) 98.2 ml/min; Magnesium 2.3 mg/dl (1.7-2.4); Phosphorus 3.9 mg/dl (2.5-4.9); Potassium 3.8 mmol/L (3.5-5.1)
[2023-04-05] MEDS: oxyCODONE HCL IR 5 MG TAB (IMMEDIATE RELEASE) PO SCH ×3 (08:48→20:39)
[2023-04-05] MEDS: PANTOprazole 40 MG TAB PO SCH (08:49)
[2023-04-05] MEDS: ADVANCED PROBIOTIC 1250 MG CAPSULE PO SCH (08:49)
[2023-04-05] MEDS: guaiFENesin 600 MG TABCR PO SCH ×2 (08:49→20:31)
[2023-04-05] MEDS: FAMOTIDINE 20 MG in SYRINGE 3 ML IV SCH ×2 (08:49→20:32)
[2023-04-05] MEDS: risperiDONE 0.5 MG TABLET PO SCH ×2 (08:49→20:33)
[2023-04-05] MEDS: GABAPENTIN 100 MG CAP PO SCH ×2 (08:49→14:50)
[2023-04-05] MEDS: POLYETHYLENE (MIRALAX) 17 GM PACK PO SCH (08:50)
[2023-04-05] MEDS: BENZONATATE 100 MG CAPSULE PO SCH ×3 (08:50→20:35)
[2023-04-05] MEDS: DOCUSATE SODIUM 100 MG CAP PO SCH ×2 (08:50→20:35)
[2023-04-05] MEDS: CEROVITE ADV FORMULA TAB PO SCH (08:50)
[2023-04-05] MEDS: SENNOSIDES 8.8 MG/5 ML UDC PO SCH (08:58)
[2023-04-05] MEDS: ENOXAPARIN INJ 40 MG/0.4 ML SYR SQ SCH ×2 (10:29→20:31)
--- NOTE | 2023-04-05 12:36 | Hospitalist Progress Note ---
Date of Service April 05, 2023 Assessment & Plan (1) Hypotension: Plan: Acute metabolic encephalopathy Multifactorial: Toxic and metabolic: Drug overdose, alcohol intoxication, Anoxia Acute respiratory failure with hypoxia and Hypercarbia Suicide Attempt ARDS Aspiration pneumonia --Head CT: Normal head/brain CT. --EEG:study is quite abnormal showing generalized, irregular mixed amplitude slow activity. There were no focal abnormalities or potentially epileptogenic discharges seen. S/P Intubation CT chest suggestive of progressive airspace consolidation with air bronchograms within the dependent lower lobes, mild pulmonary edema Patient underwent flexible bronchoscopy with bronchial washings from right lung 03/29/23 Atracurium discontinued --S/P Extubation 03/31/23 Appreciate critical care input Psychiatry following Completed 7-day course of Unasyn IV Steroids discontinued IV Lasix transition to p.o. Lasix -> now on hold as fluid status seems now at baseline BAL no growth, rare GPC, eosinophils present. Follow-up cultures Currently on RA, +cough Galactomannan Ag posit 0.87 - discussed this w/ ID - no treatment at this time - cont. to monitor the pt Dysphagia Cough Had video swallow- ENT consult recommended Hycodan ordered for cough, continue Tessalon Continue to monitor Toe changes Bluish discoloration with erythema in other locations of left little toe Arterial and venous doppler US ordered for further evaluation- both unremarkable changes likely to wound changes- appreciate wound care assistance If pain persists, consider surgical/podiatry consult for possible debridement/further eval Aspiration pneumonia --CXR:Bilateral airspace opacities most pronounced on the left S/P bronchoscopy on 03/26/23 Aspiration precautions Completed Unasyn course repeat CXR obtained - opacity improved Hypophosphatemia Hypocalcemia Hypokalemia Replete electrolytes as needed Monitor Bloody emesis Suspected upper GI bleed H/O NSAID esophagitis DD: Esophagitis, peptic ulcer disease, gastritis etc GI on board Continue IV Protonix Hgb stable Monitor CBC Continue p.o. PPI ADHD Schizoaffective disorder Past suicidal ideation One-to-one observation, suicide precautions Hold all antipsychotic medications for now Cannot leave AMA, [address] Currently on risperidone and lamictal Psychiatry following - appreciate recs Combined respiratory/metabolic acidosis Lactic acidosis Lactic acid levels trended down Received IV bicarbonate ANUEL H/O CPAP intolerance H/O Congenital nasal septal deviation S/P surgery per record Diet: liquids, regular DVT Px: Lovenox SQ Code Status: Full code Dispo: awaiting psych placement Admission and Anticipated Discharge Date Admission Date: March 25, 2023 Subjective Pt seen multiple times during the day. Stated that she was awaiting video swallow and had not yet eaten. Later notified by nursing that pt had change in left toe. Was seen by wound. Pt states that was told she had trauma to the left foot. Denies sensation below the 5th digit, very painful. Review of Systems Review of Systems: All systems reviewed & are unremarkable except as noted in Subjective Physical Exam Physical Exam: General: Alert, oriented. No acute distress Skin: No noted rashes or bruises Psych: Appropriate mood and affect Neuro: No gross deficits HEENT: NC/AT Chest: Nontender to palpation. CV: RRR, Normal s1, s2. No murmurs appreciated Resp: Breath sounds clear bilaterally, no increased effort of breathing. No crackles/rhonchi/rales. Abdomen: Soft, nontender, nondistended. No guarding. No organomegaly appreciated. Extremities: left 5th digit of foot with noted bluish discoloration on underside, some slight erythema on dorsum. Results & Data Results & Data Vital Signs (Past 12 Hours) Vital Signs Temp Pulse Pulse Resp BP Pulse Ox O2 Del Method 04/05/23 11:57 36.9 C 93 H 18 114/85 95 Room Air 04/05/23 11:00 Room Air 04/05/23 08:00 101 H 04/05/23 07:04 36.9 C 93 H 18 118/84 04/05/23 03:13 36.8 C 89 14 117/77 96 Room Air
--- NOTE | 2023-04-05 15:48 | Fluoroscopy Report ---
FL barium swallow CLINICAL HISTORY: globus sensation TECHNIQUE: The patient was observed drinking thick and thin barium under fluoroscopic observation in both the upright and recumbent positions. Total fluoroscopy time: 1.07 minutes Ka,r: 61.7 mGy COMPARISON: None available at the time of this dictation. FINDINGS: The patient had no problem initiating the swallowing mechanism. There was no evidence of aspiration. Normal peristalsis was seen throughout the esophagus. There was no evidence of strictures, filling defects, or outpouchings. Contrast flowed readily from t he esophagus into the stomach. Possible tiny hiatal hernia noted. There was no evidence of gastroesop hageal reflux. A 13 mm pill was ingested by the patient. This passed through the esophagus and into the stomach with out any evidence of holdup. IMPRESSION: Possible tiny hiatal hernia, otherwise unremarkable. ACT 112: Negative or not required by law. Electronically signed by: Braulio Menjivar M.D. 04/05/2023 3:47 PM
[2023-04-05] MEDS: lamoTRIgine 25 MG TAB PO SCH (20:32)
[2023-04-05] MEDS: LORazepam 0.5 MG TAB PO PRN (21:02)
[2023-04-05] MEDS ORDERED: HYDROmorphone INJ 0.5 MG/0.5 ML SYR IV SCH (21:02)
[2023-04-05] MEDS ORDERED: HYDROmorphone INJ 0.5 MG/0.5 ML SYR IV STA (21:02)
--- NOTE | 2023-04-05 21:27 | Ultrasound Report ---
Exam(s): US VENOUS LEFT LOWER EXTREMITY EXAM: US Duplex Left Lower Extremity Veins CLINICAL HISTORY: Reason for exam: Left toe blue, some erythema, no sensation. TECHNIQUE: Real-time duplex ultrasound scan of the left lower extremity veins integrating B-mode two-dimensional vascular structure, Doppler spectral analysis, color flow Doppler imaging and compression. COMPARISON: No relevant prior studies available. FINDINGS: Deep veins: Unremarkable. No DVT in the visualized common femoral, femoral, proximal deep femoral or popliteal veins. The veins demonstrate normal color flow, are normally compressible, with normal phasic flow and/or augmentation response. Superficial veins: Unremarkable. No thrombus in the visualized great saphenous vein. Soft tissues: No acute findings. No popliteal cyst. IMPRESSION: Normal left lower extremity duplex venous ultrasound. Electronically signed by: Alexandre Murillo MD 04/05/23 21:26 PM
--- NOTE | 2023-04-05 22:07 | Ultrasound Report ---
Exam(s): US ARTERIAL LEFT LOWER EXTREMITY EXAM: US Duplex Left Lower Extremity Arteries CLINICAL HISTORY: Reason for exam: Left toe blue, some erythema, no sensation. TECHNIQUE: Real-time duplex ultrasound scan of the left lower extremity arteries integrating B-mode two-dimensional vascular structure, Doppler spectral analysis and color flow Doppler imaging. COMPARISON: No relevant prior studies available. FINDINGS: Left common femoral artery: No acute findings. No occlusion or significant stenosis on color flow and spectral Doppler imaging. Normal waveform. Left superficial femoral artery: No acute findings. No occlusion or significant stenosis on color flow and spectral Doppler imaging. Normal waveform. Left popliteal artery: No acute findings. No occlusion or significant stenosis on color flow and spectral Doppler imaging. Normal waveform. Left calf/foot arteries: No acute findings. No occlusion or significant stenosis on color flow and spectral Doppler imaging. Normal waveform. Soft tissues: Unremarkable. IMPRESSION: Normal left lower extremity duplex arterial ultrasound. Electronically signed by: Jo-Ann Hickey M.D. 04/05/23 22:06 PM
[2023-04-06 05:12] LABS: Basophils # (auto) 0.05 K/uL (0.00-0.20); Basophils % (auto) 0.3 %; Eosinophils # (auto) 0.22 K/uL (0.00-0.50); Eosinophils % (auto) 1.5 %; Hematocrit (blood only) 38.7 % (42.0-52.0); Hemoglobin 12.7 g/dl (14.0-18.0); Immature Granulocytes # (auto) 0.08 K/uL (0.01-0.20); Immature Granulocytes % (auto) 0.6 %; Lymphocytes % (auto) 21.4 %; Mean Corpuscular Hemoglobin 26.1 pg (25.0-34.0); Mean Corpuscular Hgb Conc 32.8 g/dL (32.0-36.0); Mean Corpuscular Volume 79.6 fL (80.0-100.0); Mean Platelet Volume 9.8 fL (9.4-12.4); Neutrophils # (auto) 9.72 K/uL (1.40-6.50); Neutrophils % (auto) 67.2 %; Platelet Count 586 K/uL (130-400); RDW Coefficient of Variation 19.8 % (11.5-14.5); Red Blood Count 4.86 M/uL (4.70-6.10); White Blood Count 14.47 K/ul (4.8-10.8)
[2023-04-06 05:23] LABS: BUN Creatinine Ratio 23.8 (10-20); Calcium 9.6 mg/dl (8.6-10.3); Creatinine Clr Calc Pharmacy 157.7 ml/min; Est GFR (African American) 113.8 ml/min; Est GFR (Non-African American) 98.2 ml/min; Magnesium 2.2 mg/dl (1.7-2.4); Phosphorus 4.2 mg/dl (2.5-4.9); Potassium 3.6 mmol/L (3.5-5.1)
[2023-04-06] MEDS: oxyCODONE HCL IR 5 MG TAB (IMMEDIATE RELEASE) PO SCH ×3 (08:13→20:01)
[2023-04-06] MEDS: GABAPENTIN 100 MG CAP PO SCH ×2 (08:14→13:47)
[2023-04-06] MEDS: BENZONATATE 100 MG CAPSULE PO SCH ×3 (08:14→20:03)
[2023-04-06] MEDS: PANTOprazole 40 MG TAB PO SCH (08:14)
[2023-04-06] MEDS: risperiDONE 0.5 MG TABLET PO SCH ×2 (08:14→20:02)
[2023-04-06] MEDS: ENOXAPARIN INJ 40 MG/0.4 ML SYR SQ SCH ×2 (08:15→20:03)
[2023-04-06] MEDS: DOCUSATE SODIUM 100 MG CAP PO SCH ×2 (08:15→20:03)
[2023-04-06] MEDS: CEROVITE ADV FORMULA TAB PO SCH (08:15)
[2023-04-06] MEDS: ADVANCED PROBIOTIC 1250 MG CAPSULE PO SCH (08:15)
[2023-04-06] MEDS: guaiFENesin 600 MG TABCR PO SCH ×2 (08:15→20:03)
[2023-04-06] MEDS: POLYETHYLENE (MIRALAX) 17 GM PACK PO SCH (08:16)
[2023-04-06] MEDS: SENNA 8.6 MG TAB PO SCH (08:16)
[2023-04-06] MEDS: FAMOTIDINE 20 MG in SYRINGE 3 ML IV SCH ×2 (08:18→20:08)
[2023-04-06] MEDS: HYDROcodone/HOMATROPINE SYRUP 5MG/1.5MG 5ML UDP PO PRN ×2 (11:28→20:01)
--- NOTE | 2023-04-06 13:45 | Hospitalist Progress Note ---
Date of Service April 06, 2023 Assessment & Plan (1) Hypotension: Plan: Acute metabolic encephalopathy Multifactorial: Toxic and metabolic: Drug overdose, alcohol intoxication, Anoxia Acute respiratory failure with hypoxia and Hypercarbia Suicide Attempt ARDS Aspiration pneumonia --Head CT: Normal head/brain CT. --EEG:study is quite abnormal showing generalized, irregular mixed amplitude slow activity. There were no focal abnormalities or potentially epileptogenic discharges seen. S/P Intubation CT chest suggestive of progressive airspace consolidation with air bronchograms within the dependent lower lobes, mild pulmonary edema Patient underwent flexible bronchoscopy with bronchial washings from right lung 03/29/23 Atracurium discontinued --S/P Extubation 03/31/23 Appreciate critical care input Psychiatry following Completed 7-day course of Unasyn IV Steroids discontinued IV Lasix transition to p.o. Lasix -> now on hold as fluid status seems now at baseline BAL no growth, rare GPC, eosinophils present. Follow-up cultures Currently on RA, +cough, prn hycodan Galactomannan Ag posit 0.87 - discussed this w/ ID - no treatment at this time - cont. to monitor the pt Dysphagia Cough Had video swallow- ENT consult recommended Hycodan ordered for cough, continue Tessalon Continue to monitor Toe changes Bluish discoloration with erythema in other locations of left little toe Arterial and venous doppler US ordered for further evaluation- both unremarkable changes likely to wound changes- appreciate wound care assistance podiatry consult for possible debridement/further eval Aspiration pneumonia --CXR:Bilateral airspace opacities most pronounced on the left S/P bronchoscopy on 03/26/23 Aspiration precautions Completed Unasyn course repeat CXR obtained - opacity improved Hypophosphatemia Hypocalcemia Hypokalemia Replete electrolytes as needed Monitor Bloody emesis Suspected upper GI bleed H/O NSAID esophagitis DD: Esophagitis, peptic ulcer disease, gastritis etc GI on board Continue IV Protonix Hgb stable Monitor CBC Continue p.o. PPI ADHD Schizoaffective disorder Past suicidal ideation One-to-one observation, suicide precautions Hold all antipsychotic medications for now Cannot leave AMA, [address] Currently on risperidone and lamictal Psychiatry following - appreciate recs Combined respiratory/metabolic acidosis Lactic acidosis Lactic acid levels trended down Received IV bicarbonate ANUEL H/O CPAP intolerance H/O Congenital nasal septal deviation S/P surgery per record Diet: liquids, regular DVT Px: Lovenox SQ Code Status: Full code Dispo: awaiting psych placement Admission and Anticipated Discharge Date Admission Date: March 25, 2023 Subjective Pt seen multiple times during the day. Discussion of toe, agreeable to podiatry consult. Would like to stay off of estradiol as she states she started it 5 days before admission. Discussion of facial lesion, agreeable to topical abx. States swallowing improving, not using hycodan prn. Advised it was ordered. Would like to see psychiatry as she states she was hoping to see them yesterday. Review of Systems Review of Systems: All systems reviewed & are unremarkable except as noted in Subjective Physical Exam Physical Exam: General: Alert, oriented. No acute distress Skin: No noted rashes or bruises Psych: Appropriate mood and affect Neuro: No gross deficits HEENT: NC/AT Chest: Nontender to palpation. CV: RRR, Normal s1, s2. No murmurs appreciated Resp: Breath sounds clear bilaterally, no increased effort of breathing. No crackles/rhonchi/rales. Abdomen: Soft, nontender, nondistended. No guarding. No organomegaly appreciated. Extremities: left 5th digit of foot with noted bluish discoloration on underside, some slight erythema on dorsum. Results & Data Results & Data Vital Signs (Past 12 Hours) Vital Signs Temp Pulse Pulse Resp BP Pulse Ox O2 Del Method 04/06/23 11:46 36.7 C 92 H 18 129/85 95 Room Air 04/06/23 10:00 Room Air 04/06/23 07:33 89 04/06/23 07:02 36.5 C 95 H 18 115/73 94 Room Air 04/06/23 03:37 36.8 C 98 H 20 127/85 94 Room Air
--- NOTE | 2023-04-06 14:55 | Psychiatric Progress Note ---
Date of Service April 06, 2023 Impression / Recommendations Impression 27 yo transgender woman with schizoaffective disorder bipolar type s/p Ativan and alcohol OD with aspiration, respiratory arrest and extended intubation, now extubated. Currently willing for voluntary care when medically cleared if not otherwise trumped by a physical rehab need. 04/06/2023: Mood remains improved and stable with no signs of psychosis nor impulsivity. She reports feeling as though the current psychiatric medications are working well and prefers not to restart Caplyta as previously this lead to insurance issues. Denies SI and feels comfortable letting RNs know if this were to reoccur, feels safe being off 1-on-1 and is future-oriented during our conversation. Remains agreeable for inpatient psychiatric treatment once medically stable. Current main focus is on new toe color changes/numbness and chin wound. Plans to reach out to student care and advocacy to discuss options for taking incomplete grades for the semester to allow her to catch up over winter break without losing scholarships and academic progress. Overall, I spent a total of 50 minutes with this case including review of chart records, direct evaluation of the patient at bedside, counseling the patient, discussion with the psychiatric liason during clinical rounds, discussion with hospitalist provider and documentation in the electronic health record. (1) Schizoaffective disorder, bipolar type: (2) Overdose by ingestion: (3) Aspiration pneumonitis due to regurgitated gastric secretions: (4) Suicide attempt: Plan -can discontinue 1-on-1 as denies any current SI, no concerns for current impulsivity, no recent or current symptoms of psychosis, feels her mood is stable and feels comfortable letting RN know if she begins to feel unsafe/or re- develops SI. Would continue with suicide precautions and q15 minute safety checks. Still may not leave AMA as she would meet 302 criteria but remains voluntary for inpatient psychiatric treatment once medically stable. -continue risperidone 0.25mg bid and lamictal 50mg qpm Interval History Identifying Information 27 yo transgender woman, prefers Ethel with she/her pronouns, [employer] student with hx of schizoaffective disorder, bipolar type who was treated on our unit in May 2022. Patient presented to the ED in respiratory arrest on 03/24/23 following suicide attempt. Psychiatry consulted for risk assessment. Chief Complaint "Aside from the toe I'm ok". Subjective Subjective Patient was seen & assessed and interval progress reviewed. She reports stable mood without SI and no symptoms of psychosis. She credits this with medications and "being away from all the stressful stuff". Notes main current concerns are dealing with toe numbness and wound on chin from recent intubation. She likes the risperidone and has decided to prefers to stay on this rather than go back on Caplyta given Caplyta was sometimes an issue with insurance and the risperidone seems to be working "really well". She plans to reach out to student care and advocacy today to discuss options for delayed course grades so she can catch up over winter break. Physical Exam Psychiatric Orientation: alert, oriented x 3 and cooperative Apperance: appropriately groomed Eye Contact: good eye contact Motor Behavior: no abnormal motor movements Speech: normal rate/rhythm/volume of speech Affect: + constricted affect Mood: no depressed mood and no anxious mood Thought Process: goal directed thought process Thought Content: reality based without delusions Suicidal Thoughts: denies suicidal thoughts Homicidal Thoughts: denies homicidal thoughts Hallucinations: no auditory hallucinations and no visual hallucinations Cognition: attention grossly intact and language grossly intact Estimated Intelligence: consistent with education level Insight: + limited insight Judgment: + limited judgement Vital Signs (Past 24 Hours) Last Vital Signs Temp 36.7 C 04/06/23 11:46 Pulse 92 H 04/06/23 11:46 Resp 18 04/06/23 11:46 BP 129/85 04/06/23 11:46 Pulse Ox 95 04/06/23 11:46 O2 Del Method Room Air 04/06/23 11:46 O2 Flow Rate 2 04/01/23 20:00 FiO2 40 03/31/23 12:00 Results & Data ([facility]) Laboratory Results Laboratory Results - last 24 hr 04/06/23 04:34 WBC 14.47 H RBC 4.86 Hgb 12.7 L Hct 38.7 L MCV 79.6 L MCH 26.1 MCHC 32.8 RDW Std Deviation 54.0 H RDW Coeff of Rene 19.8 H Plt Count 586 H MPV 9.8 Immature Gran % (Auto) 0.6 Neut % (Auto) 67.2 Lymph % (Auto) 21.4 Hill % (Auto) 9.0 Eos % (Auto) 1.5 Baso % (Auto) 0.3 Neut # (Auto) 9.72 H Lymph # (Auto) 3.10 Hill # (Auto) 1.30 H Eos # (Auto) 0.22 Baso # (Auto) 0.05 Immature Gran # (Auto) 0.08 Sodium 135 L Potassium 3.6 Chloride 101 Carbon Dioxide 24 Anion Gap 10 BUN 25 H Creatinine 1.05 Est Cr Clr Drug Dosing 157.7 Est GFR ( Amer) 113.8 Est GFR (Non-Af Amer) 98.2 BUN/Creatinine Ratio 23.8 H Glucose 98 Calcium 9.6 Ionized Calcium 1.12 Phosphorus 4.2 Magnesium 2.2 Current Inpatient Medications Current Inpatient Medications: Current Inpatient Medications Benzocaine (Benzocaine 20% (Orajel) 11.9 Gm Tube) 1 appln MT Q6H PRN PRN Reason: Oral Pain Stop: 05/01/23 11:31 Benzonatate (Benzonatate 100 Mg Capsule) 100 mg PO TID KIKA Stop: 05/03/23 16:19 Last Admin: 04/06/23 13:47 Dose: 100 mg Dextrose (Dextrose 50% 50 Ml Syringe) 25 - 50 ml IV UD PRN; Protocol PRN Reason: Hypoglycemia Protocol Stop: 04/25/23 08:11 Docusate Sodium (Docusate Sodium 100 Mg Cap) 100 mg PO BID KIKA Stop: 04/30/23 22:29 Last Admin: 04/06/23 08:15 Dose: Not Given Enoxaparin Sodium (Enoxaparin Inj 40 Mg/0.4 Ml Syr) 40 mg SQ BID KIKA Stop: 04/24/23 11:29 Last Admin: 04/06/23 08:15 Dose: 40 mg Furosemide (Furosemide 40 Mg Tab) 40 mg PO QAM KIKA Stop: 05/01/23 08:59 Last Admin: 04/04/23 08:01 Dose: 40 mg Gabapentin (Gabapentin 100 Mg Cap) 200 mg PO BID@0800,1400 KIKA Stop: 05/01/23 13:59 Last Admin: 04/06/23 13:47 Dose: 200 mg Glucagon (Glucagon For Inj 1 Mg Vial) 1 mg SQ UD PRN; Protocol PRN Reason: Hypoglycemia Protocol Stop: 04/25/23 08:11 Glucose (Glucose 40% Gel 15 Gm Tube) 15 - 30 gm PO UD PRN; Protocol PRN Reason: Hypoglycemia Protocol Stop: 04/25/23 08:11 Glucose (Glucose 10 Tab/Tube) 4 - 8 tab PO UD PRN; Protocol PRN Reason: Hypoglycemia Treatment Stop: 04/25/23 08:11 Guaifenesin (Guaifenesin 600 Mg Tabcr) 600 mg PO Q12 KIKA Stop: 05/02/23 09:09 Last Admin: 04/06/23 08:15 Dose: 600 mg Hydrocodone Bit/Homatropine Methylb (Hydrocodone/Homatropine Syrup 5mg/1.5mg 5ml Udp) 5 ml PO Q6H PRN PRN Reason: Cough Stop: 04/19/23 15:35 Last Admin: 04/06/23 11:28 Dose: 5 ml Promethazine HCl 12.5 mg/ (Sodium Chloride) 50.5 mls @ 202 mls/hr IV Q6H PRN PRN Reason: Nausea And Vomiting Stop: 05/03/23 01:50 Last Infusion: 04/03/23 03:11 Dose: Infused Famotidine 20 mg/ Syringe 5 mls @ 2.5 mls/min IV BID KIKA Stop: 05/03/23 01:54 Last Admin: 04/06/23 08:18 Dose: 2.5 mls/min Lactobacillus Acidophilus (Advanced Probiotic 1250 Mg Capsule) 2 cap PO DAILY KIKA Stop: 05/03/23 08:59 Last Admin: 04/06/23 08:15 Dose: 2 cap Lamotrigine (Lamotrigine 25 Mg Tab) 50 mg PO QPM KIKA Stop: 05/01/23 20:59 Last Admin: 04/05/23 20:32 Dose: 50 mg Lorazepam (Lorazepam 0.5 Mg Tab) 0.5 mg PO Q8 PRN PRN Reason: Anxiety Stop: 05/01/23 09:22 Last Admin: 04/05/23 21:02 Dose: 0.5 mg Menthol (Cough Drop (Sugar Free) Andrez 24 Andrez/1 Box) 1 andrez BUCCAL 6XD PRN PRN Reason: Cough Stop: 05/01/23 01:42 Last Admin: 04/01/23 02:50 Dose: 1 andrez Miscellaneous (Carbohydrates For Hypoglycemia ) 15 - 30 gm PO UD PRN PRN Reason: Hypoglycemia Protocol Stop: 04/25/23 08:11 Multivitamins/Minerals (Cerovite Adv Formula Tab) 1 tab PO QAM KIKA Stop: 05/01/23 08:59 Last Admin: 04/06/23 08:15 Dose: Not Given Ondansetron HCl (Ondansetron Inj 2 Mg/Ml 2 Ml Vial) 4 mg IV Q6H PRN PRN Reason: Nausea And Vomiting Stop: 05/01/23 02:06 Last Admin: 04/02/23 23:47 Dose: 4 mg Oxycodone HCl (Oxycodone Hcl Ir 5 Mg Tab (Immediate Release)) 5 mg PO TID [facility] Stop: 04/15/23 08:59 Last Admin: 04/06/23 13:47 Dose: 5 mg Pantoprazole Sodium (Pantoprazole 40 Mg Tab) 40 mg PO DAILY [facility] Stop: 05/02/23 08:59 Last Admin: 04/06/23 08:14 Dose: 40 mg Polyethylene Glycol (Polyethylene (Miralax) 17 Gm Pack) 17 gm PO DAILY KIKA Stop: 04/29/23 08:59 Last Admin: 04/06/23 08:16 Dose: Not Given Risperidone (Risperidone 0.5 Mg Tablet) 0.25 mg PO BID [facility] Stop: 05/01/23 08:59 Last Admin: 04/06/23 08:14 Dose: 0.25 mg Sennosides (Senna 8.6 Mg Tab) 17.2 mg PO DAILY [facility] Stop: 05/06/23 08:59 Last Admin: 04/06/23 08:16 Dose: Not Given
--- NOTE | 2023-04-06 19:26 | XRay Report ---
XR foot LT min 3V routine CLINICAL HISTORY: fifth toe wound COMPARISON: None FINDINGS: Alignment of the left foot is anatomic. Tarsometatarsal joints are intact. No acute fractu re is present. There is pronounced left fifth toe soft tissue swelling. No bony erosions are identifi ed. There are no osseous lesions. Joint spaces are preserved. There is no evidence for soft tissue ga s. IMPRESSION: Pronounced left fifth toe soft tissue swelling. No radiographic evidence of acute osteomy elitis. ACT 112: Negative or not required by law. Electronically signed by: Cuate You M.D. 04/06/2023 7:24 PM
[2023-04-06] MEDS: lamoTRIgine 25 MG TAB PO SCH (20:02)
[2023-04-06] MEDS: GABAPENTIN 400 MG CAP PO SCH (20:03)
[2023-04-06] MEDS ORDERED: ZOLPIDEM TARTRATE 5 MG TAB PO STA (22:25)
[2023-04-07 06:14] LABS: Basophils # (auto) 0.06 K/uL (0.00-0.20); Basophils % (auto) 0.7 %; Eosinophils # (auto) 0.24 K/uL (0.00-0.50); Eosinophils % (auto) 2.8 %; Hematocrit (blood only) 40.6 % (42.0-52.0); Hemoglobin 12.7 g/dl (14.0-18.0); Immature Granulocytes # (auto) 0.04 K/uL (0.01-0.20); Immature Granulocytes % (auto) 0.5 %; Lymphocytes # (auto) 2.29 K/uL (1.20-3.40); Lymphocytes % (auto) 26.3 %; Mean Corpuscular Hemoglobin 25.3 pg (25.0-34.0); Mean Corpuscular Hgb Conc 31.3 g/dL (32.0-36.0); Mean Platelet Volume 9.9 fL (9.4-12.4); Monocytes # (auto) 0.98 K/uL (0.11-0.59); Monocytes % (auto) 11.2 %; Neutrophils # (auto) 5.11 K/uL (1.40-6.50); Neutrophils % (auto) 58.5 %; Platelet Count 575 K/uL (130-400); RDW Coefficient of Variation 19.6 % (11.5-14.5); Red Blood Count 5.01 M/uL (4.70-6.10); White Blood Count 8.72 K/ul (4.8-10.8)
[2023-04-07 06:32] LABS: BUN Creatinine Ratio 16.7 (10-20); Calcium 9.6 mg/dl (8.6-10.3); Creatinine Clr Calc Pharmacy 153.4 ml/min; Est GFR (Non-African American) 94.9 ml/min; Magnesium 2.2 mg/dl (1.7-2.4); Phosphorus 4.3 mg/dl (2.5-4.9); Potassium 3.7 mmol/L (3.5-5.1)
[2023-04-07] MEDS: oxyCODONE HCL IR 5 MG TAB (IMMEDIATE RELEASE) PO SCH ×3 (08:22→20:20)
[2023-04-07] MEDS: HYDROcodone/HOMATROPINE SYRUP 5MG/1.5MG 5ML UDP PO PRN ×2 (08:22→16:11)
[2023-04-07] MEDS: GABAPENTIN 400 MG CAP PO SCH ×2 (08:23→13:35)
[2023-04-07] MEDS: BACITRACIN OINT 14 GM TUBE EXT SCH ×2 (08:23→20:23)
[2023-04-07] MEDS: ADVANCED PROBIOTIC 1250 MG CAPSULE PO SCH (08:23)
[2023-04-07] MEDS: guaiFENesin 600 MG TABCR PO SCH ×2 (08:23→20:18)
[2023-04-07] MEDS: BENZONATATE 100 MG CAPSULE PO SCH ×3 (08:24→20:19)
[2023-04-07] MEDS: PANTOprazole 40 MG TAB PO SCH (08:24)
[2023-04-07] MEDS: risperiDONE 0.5 MG TABLET PO SCH ×2 (08:24→20:19)
[2023-04-07] MEDS: ENOXAPARIN INJ 40 MG/0.4 ML SYR SQ SCH ×2 (08:24→20:17)
[2023-04-07] MEDS: DOCUSATE SODIUM 100 MG CAP PO SCH ×2 (08:25→20:23)
[2023-04-07] MEDS: FAMOTIDINE 20 MG in SYRINGE 3 ML IV SCH (08:25)
[2023-04-07] MEDS: SENNA 8.6 MG TAB PO SCH (08:25)
[2023-04-07] MEDS: CEROVITE ADV FORMULA TAB PO SCH (08:25)
[2023-04-07] MEDS: POLYETHYLENE (MIRALAX) 17 GM PACK PO SCH (08:25)
--- NOTE | 2023-04-07 08:30 | Orthopedic Consultation ---
Date of Consultation April 07, 2023 Assessment & Plan (1) Wound of left foot: Patient seen evaluated and treated. Left fifth and fourth toe show Bullous hemorrhagic dermatosis consistent with use of Lovenox. Hemorrhagic bullae reduced sharply at bedside. Dry sterile dressing applied. Patient is weight bearing as tolerated per podiatry. Dispensed Surgical shoe. Will continue to follow while in house. Thank you for allowing me to participate in the care of this Patient. History of Present Illness Attending Physician: Alayna العراقي MD History of Present Illness Patient is a 27 year old transgender woman seen at bedside for left fifth and fourth toes wounds. Patient has a past medical history significant for schizoaffective disorder bipolar type s/p Ativan and alcohol OD with aspiration, respiratory arrest and extended intubation, now extubated. Patient relates sudden onset of left fifth toe becoming dark. Patient notes there is some a ssociated pain to area but it is well controlled at present. Allergies Allergy/AdvReac Type Severity Reaction Status Date / Time azithromycin [From Zithromax] Allergy Intermediate Rash Verified 03/24/23 23:31 Home Medications Medication Instructions Recorded Confirmed Type adalimumab 40 mg/0.4 mL 40 mg subcut DIRECTED 03/11/23 03/24/23 History subcutaneous pen kit (Humira(CF) Pen) finasteride 5 mg tablet 5 mg PO DAILY 03/11/23 03/24/23 History gabapentin 100 mg capsule 200 mg PO BID 03/11/23 03/24/23 History lamotrigine 25 mg tablet (Lamictal) 50 mg PO QPM 03/11/23 03/24/23 History lumateperone 42 mg capsule 42 mg PO QPM 03/11/23 03/24/23 History (Caplyta) spironolactone 50 mg tablet 50 mg PO BID 03/11/23 03/24/23 History estradiol 2 mg tablet 2 mg PO BID 03/24/23 03/24/23 History lorazepam 0.5 mg tablet 0.5 mg PO Q8 PRN Anxiety 03/24/23 03/24/23 History modafinil 100 mg tablet 100 mg PO DAILY 03/24/23 03/24/23 History omeprazole 40 mg capsule,delayed 40 mg PO QAM 03/24/23 03/24/23 History release trazodone 50 mg tablet 50 mg PO BID 03/24/23 03/24/23 History Patient History Medical History Schizoaffective disorder, bipolar type Encounter for pre-operative examination Vermiculation Suicidal ideations Rheumatoid arthritis Surgical History No significant past surgical history Family History Other Back pain Social History Smoking Status: Never smoker Second Hand Exposure: No; Do You Dip or Chew Tobacco: No; Preferred Language: Maltese Communication Ability: Unable Communication Ability Comment: unable to assess currently intubated Medical Resident Required: No Beliefs That Will Affect Care: Spiritual marital status: Single Current Living Situation: Alone Current Living Situation Comment: college student current occupational status: student Feels Safe at Home: Yes Gender Identity: Female Assistive Devices: None Review of Systems Review of Systems: All systems reviewed & are unremarkable except as noted in HPI & below Physical Exam Constitutional: well developed, well nourished, cooperative and comfortable Eyes: normal visual prince by confrontation Neck: normal visual inspection Respiratory: normal respiratory effort Cardiovascular: Rate/Rhythm: regular rate and regular rhythm Musculoskeletal: Extremities: extremities normal to inspection and strength 5/5 throughout Skin: + wound (Left 4th toe bullae, 5th toe d ermal necrosis w/ intradermal hemorrhaging) Neurologic: moves all extremities (Epicritic sensation intact) Results & Data Vital Signs (Past 12 Hours) Vital Signs Temp Pulse Pulse Resp BP BP Pulse Ox 04/07/23 07:41 36.9 C 92 H 18 108/76 95 04/07/23 03:42 36.9 C 77 18 109/78 94 04/06/23 23:44 36.9 C 98 H 18 125/85 95 04/06/23 22:45 100 H O2 Del Method 04/07/23 07:41 Room Air 04/07/23 03:42 Room Air 04/06/23 23:44 Room Air 04/06/23 22:45 Diagnostic Findings [facility], [place] [phone] XRay Report Patient: JAVAD LEZAMA Admit Date: 03/25/23 MR#: [id number] Address1: [address] Acct ID:[id number] Address2: [address] Date: [address] [facility] Zip: [place] [address] Age: 27 Location: 4W Sex: M Room/Bed: [facility] Att Phy: Alayna العراقي MD Diagnosis: DRUG OVERDOSE, UGIB Shonna Phy: Renata Waters MD Service Date: 04/06/23 Fam Phy: Interpreting Phy: Cuate Tolentinoit Phy: Manuel Paul MD Ordering Phy: Cody Palm DPM, MS cc: ~ XR foot LT min 3V routine CLINICAL HISTORY: fifth toe wound COMPARISON: None FINDINGS: Alignment of the left foot is anatomic. Tarsometatarsal joints are intact. No acute fracture is present. There is pronounced left fifth toe soft tissue swelling. No bony erosions are identified. There are no osseous lesions. Joint spaces are preserved. There is no evidence for soft tissue gas. IMPRESSION: Pronounced left fifth toe soft tissue swelling. No radiographic evidence of acute osteomyelitis. ACT 112: Negative or not required by law. Electronically signed by: Cuate You M.D. 04/06/2023 7:24 PM Dictated: 04/06/231922 Transcribed: 04/06/231922 [place], [place] [phone] Ultrasound Report Patient: JAVAD LEZAMA Admit Date: 03/25/23 MR#: [id number] Address1: [address] [facility] Acct ID:[id number] Address2: [address]: [address] [facility] Zip: [place] [address] Age: 27 Location: 4W Sex: M Room/Bed: [facility] Att Phy: Alayna العراقي MD Diagnosis: DRUG OVERDOSE, UGIB Shonna Phy: Renata Waters MD Service Date: 04/05/23 Fam Phy: Interpreting Phy: Alexandre Murillo MDAdmit Phy: Manuel Paul MD Ordering Phy: Alayna العراقي MD cc: ~ Exam(s): US VENOUS LEFT LOWER EXTREMITY EXAM: US Duplex Left Lower Extremity Veins CLINICAL HISTORY: Reason for exam: Left toe blue, some erythema, no sensation. TECHNIQUE: Real-time duplex ultrasound scan of the left lower extremity veins integrating B-mode two-dimensional vascular structure, Doppler spectral analysis, color flow Doppler imaging and compression. COMPARISON: No relevant prior studies available. FINDINGS: Deep veins: Unremarkable. No DVT in the visualized common femoral, femoral, proximal deep femoral or popliteal veins. The veins demonstrate normal color flow, are normally compressible, with normal phasic flow and/or augmentation response. Superficial veins: Unremarkable. No thrombus in the visualized great saphenous vein. Soft tissues: No acute findings. No popliteal cyst. IMPRESSION: Normal left lower extremity duplex venous ultrasound. Electronically signed by: Alexandre Murillo MD 04/05/23 21:26 PM Dictated: 04/05/232125 Transcribed: 04/05/232125 [place] [phone] Ultrasound Report Patient: JAVAD LEZAMA Admit Date: 03/25/23 MR#: [id number] Address1: [address] [place] [address] Acct ID:[id number] Address2: [address] Date: [address] [facility] Zip: [place] [address] Age: 27 Location: 4W Sex: M Room/Bed: [facility] Att Phy: Alayna العراقي MD Diagnosis: DRUG OVERDOSE, UGIB Shonna Phy: Renata Waters MD Service Date: 04/05/23 [facility] Phy: Interpreting Phy: Jo-Ann Hickey MDAdmit Phy: Manuel Paul MD Ordering Phy: Alayna العراقي MD cc: ~ Exam(s): US ARTERIAL LEFT LOWER EXTREMITY EXAM: US Duplex Left Lower Extremity Arteries CLINICAL HISTORY: Reason for exam: Left toe blue, some erythema, no sensation. TECHNIQUE: Real-time duplex ultrasound scan of the left lower extremity arteries integrating B-mode two-dimensional vascular structure, Doppler spectral analysis and color flow Doppler imaging. COMPARISON: No relevant prior studies available. FINDINGS: Left common femoral artery: No acute findings. No occlusion or significant stenosis on color flow and spectral Doppler imaging. Normal waveform. Left superficial femoral artery: No acute findings. No occlusion or significant stenosis on color flow and spectral Doppler imaging. Normal waveform. Left popliteal artery: No acute findings. No occlusion or significant stenosis on color flow and spectral Doppler imaging. Normal waveform. Left calf/foot arteries: No acute findings. No occlusion or significant stenosis on color flow and spectral Doppler imaging. Normal waveform. Soft tissues: Unremarkable. IMPRESSION: Normal left lower extremity duplex arterial ultrasound. Electronically signed by: Jo-Ann Hickey M.D. 04/05/23 22:06 PM Dictated: 04/05/232205 Transcribed: 04/05/232205
--- NOTE | 2023-04-07 15:26 | Hospitalist Progress Note ---
Date of Service April 07, 2023 Assessment & Plan (1) Hypotension: Plan: Acute metabolic encephalopathy Multifactorial: Toxic and metabolic: Drug overdose, alcohol intoxication, Anoxia Acute respiratory failure with hypoxia and Hypercarbia Suicide Attempt ARDS Aspiration pneumonia --Head CT: Normal head/brain CT. --EEG:study is quite abnormal showing generalized, irregular mixed amplitude slow activity. There were no focal abnormalities or potentially epileptogenic discharges seen. S/P Intubation CT chest suggestive of progressive airspace consolidation with air bronchograms within the dependent lower lobes, mild pulmonary edema Patient underwent flexible bronchoscopy with bronchial washings from right lung 03/29/23 Atracurium discontinued --S/P Extubation 03/31/23 Appreciate critical care input Psychiatry following Completed 7-day course of Unasyn IV Steroids discontinued IV Lasix transition to p.o. Lasix -> now on hold as fluid status seems now at baseline BAL no growth, rare GPC, eosinophils present. Follow-up cultures Currently on RA, +cough, prn hycodan Galactomannan Ag posit 0.87 - discussed this w/ ID - no treatment at this time - cont. to monitor the pt Dysphagia Cough Had video swallow- ENT consult recommended Hycodan ordered for cough, continue Tessalon Continue to monitor Toe changes Bluish discoloration with erythema in other locations of left little toe Arterial and venous doppler US ordered for further evaluation- both unremarkable changes likely to wound changes- appreciate wound care assistance podiatry consult for possible debridement/further eval Aspiration pneumonia --CXR:Bilateral airspace opacities most pronounced on the left S/P bronchoscopy on 03/26/23 Aspiration precautions Completed Unasyn course repeat CXR obtained - opacity improved Hypophosphatemia Hypocalcemia Hypokalemia Replete electrolytes as needed Monitor Bloody emesis Suspected upper GI bleed H/O NSAID esophagitis DD: Esophagitis, peptic ulcer disease, gastritis etc GI on board Continue IV Protonix Hgb stable Monitor CBC Continue p.o. PPI ADHD Schizoaffective disorder Past suicidal ideation One-to-one observation, suicide precautions Hold all antipsychotic medications for now Cannot leave AMA, [address] Currently on risperidone and lamictal Psychiatry following - appreciate recs Combined respiratory/metabolic acidosis Lactic acidosis Lactic acid levels trended down Received IV bicarbonate ANUEL H/O CPAP intolerance H/O Congenital nasal septal deviation S/P surgery per record Diet: liquids, regular DVT Px: Lovenox SQ Code Status: Full code Dispo: awaiting psych placement Admission and Anticipated Discharge Date Admission Date: March 25, 2023 Physical Exam Physical Exam: General: Alert, oriented. No acute distress Skin: No noted rashes or bruises Psych: Appropriate mood and affect Neuro: No gross deficits HEENT: NC/AT Chest: Nontender to palpation. CV: RRR, Normal s1, s2. No murmurs appreciated Resp: Breath sounds clear bilaterally, no increased effort of breathing. No crackles/rhonchi/rales. Abdomen: Soft, nontender, nondistended. No guarding. No organomegaly appreciated. Extremities: left 5th digit of foot with noted bluish discoloration on underside, some slight erythema on dorsum. Results & Data Results & Data Vital Signs (Past 12 Hours) Vital Signs Temp Pulse Resp BP BP Pulse Ox O2 Del Method 04/07/23 14:45 36.4 C L 85 18 114/80 95 Room Air 04/07/23 11:49 36.7 C 93 H 18 121/79 92 Room Air 04/07/23 11:00 Room Air 04/07/23 07:41 36.9 C 92 H 18 108/76 95 Room Air 04/07/23 03:42 36.9 C 77 18 109/78 94 Room Air
--- NOTE | 2023-04-07 17:38 | Discharge Summary ---
Discharge Summary Date of Service April 07, 2023 Admission HPI Per Admitting Provider History obtained from patient family and records. Medical history significant for GERD, ANUEL CPAP intolerance, seronegative RA, schizoaffective disorder, anxiety/mood disorder, ADD, anosmia secondary to congenital nasal septal deviation status post surgery. Last confinement 2 months ago for UGIB secondary to esophagitis secondary to NSAID use. Patient discharged on PPI course. Repeat EGD recommended after 3 months. Outpatient schedule 2 weeks ago canceled. Recent ER visit 2 weeks ago for suicidal intent. Patient discharged to [facility] where patient stayed for 2 days. Patient seemed stressed out with school work as per mother (based in [facility]) last time she spoke to patient over the phone 2 days ago. Patient mother not concerned about alcohol abuse. Patient verbalized suicidal intent to a professor today. Noted to have slurred speech. Police alerted and found patient at his apartment minimally responsive. Patient took 15 mg of Ativan along with alcohol as per report. CPR initiated by police due to agonal respiration and uncertainty about presence of patient pulse. EMS alerted by police. Patient subsequently intubated. O2 sats 80s, Initial SBP at the ER 70s. Bloody OGT drainage noted at the ER. 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 --EEG:study is quite abnormal showing generalized, irregular mixed amplitude slow activity. There were no focal abnormalities or potentially epileptogenic discharges seen. S/P Intubation CT chest suggestive of progressive airspace consolidation with air bronchograms within the dependent lower lobes, mild pulmonary edema Patient underwent flexible bronchoscopy with bronchial washings from right lung 03/29/23 Atracurium discontinued --S/P Extubation 03/31/23 Appreciate critical care input Psychiatry following Completed 7-day course of Unasyn IV Steroids discontinued IV Lasix transition to p.o. Lasix -> now on hold as fluid status seems now at baseline BAL no growth, rare GPC, eosinophils present. Follow-up cultures Currently on RA, +cough, prn hycodan Galactomannan Ag posit 0.87 - discussed this w/ ID - no treatment at this time - cont. to monitor the pt Dysphagia Cough Had video swallow- ENT consult recommended Hycodan ordered for cough, continue Tessalon Continue to monitor Toe changes Bluish discoloration with erythema in other locations of left little toe Arterial and venous doppler US ordered for further evaluation- both unremarkable changes likely to wound changes- appreciate wound care assistance podiatry consult for possible debridement/further eval Aspiration pneumonia --CXR:Bilateral airspace opacities most pronounced on the left S/P bronchoscopy on 03/26/23 Aspiration precautions Completed Unasyn course repeat CXR obtained - opacity improved Hypophosphatemia Hypocalcemia Hypokalemia Replete electrolytes as needed Monitor Bloody emesis Suspected upper GI bleed H/O NSAID esophagitis DD: Esophagitis, peptic ulcer disease, gastritis etc GI on board Continue IV Protonix Hgb stable Monitor CBC Continue p.o. PPI ADHD Schizoaffective disorder Past suicidal ideation One-to-one observation, suicide precautions Hold all antipsychotic medications for now Cannot leave AMA, [address] Currently on risperidone and lamictal Psychiatry following - appreciate recs Combined respiratory/metabolic acidosis Lactic acidosis Lactic acid levels trended down Received IV bicarbonate ANUEL H/O CPAP intolerance H/O Congenital nasal septal deviation S/P surgery per record Diet: liquids, regular DVT Px: Lovenox SQ Code Status: Full code Dispo: awaiting psych placement Discharge Exam General: Alert, oriented. No acute distress Skin: No noted rashes or bruises Psych: Appropriate mood and affect Neuro: No gross deficits HEENT: NC/AT Chest: Nontender to palpation. CV: RRR, Normal s1, s2. No murmurs appreciated Resp: Breath sounds clear bilaterally, no increased effort of breathing. No crackles/rhonchi/rales. Abdomen: Soft, nontender, nondistended. No guarding. No organomegaly appreciated. Extremities: left 5th digit of foot with noted bluish discoloration on underside, some slight erythema on dorsum. Updated Medication List Medication Instructions Recorded Confirmed Type adalimumab 40 mg/0.4 mL 40 mg subcut DIRECTED 03/11/23 03/24/23 History subcutaneous pen kit (Humira(CF) Pen) finasteride 5 mg tablet 5 mg PO DAILY 03/11/23 03/24/23 History gabapentin 100 mg capsule 200 mg PO BID 03/11/23 03/24/23 History lamotrigine 25 mg tablet (Lamictal) 50 mg PO QPM 03/11/23 03/24/23 History lumateperone 42 mg capsule 42 mg PO QPM 03/11/23 03/24/23 History (Caplyta) spironolactone 50 mg tablet 50 mg PO BID 03/11/23 03/24/23 History estradiol 2 mg tablet 2 mg PO BID 03/24/23 03/24/23 History lorazepam 0.5 mg tablet 0.5 mg PO Q8 PRN Anxiety 03/24/23 03/24/23 History modafinil 100 mg tablet 100 mg PO DAILY 03/24/23 03/24/23 History omeprazole 40 mg capsule,delayed 40 mg PO QAM 03/24/23 03/24/23 History release trazodone 50 mg tablet 50 mg PO BID 03/24/23 03/24/23 History hydrocodone-homatropine 5 mg-1.5 5 ml PO Q6H PRN cough #473 mL 04/07/23 Rx mg/5 mL oral syrup (Hydromet) Hospital Stay Data Consultations 03/25/23 00:19 Consult Studio Potter Routine ED Decision to Admit Stat 03/25/23 01:10 Consult Studio Potter Routine 03/25/23 01:45 Consult Gastroenterology Routine 03/26/23 08:27 Consult Patient Services Routine 03/31/23 17:13 Consult Psychiatry Routine 04/06/23 12:15 Consult Podiatry Routine Diagnostic Imagining Performed 03/24/23 23:11 CT cervical spine wo con Stat CT chest diagnostic w con Stat 03/24/23 23:13 CT head/brain wo con Stat 03/25/23 08:51 US point of care ultrasound Routine 03/25/23 09:15 US point of care ultrasound Routine 03/25/23 11:39 US point of care ultrasound Routine 03/30/23 08:29 CT chest without contrast [CT chest diagnostic wo con] Stat 04/05/23 13:00 FL barium swallow Routine 04/05/23 16:59 US doppler leg [US arterial duplex LE LT] Urgent US venous doppler LE LT Urgent Pending Results Patient Have Any Pending Studies at Discharge: No Discharge Instructions Given to Patient (Per Discharging Provider) You were admitted with an overdose in a suicide attempt and we are discharging you to the psychiatric service for further care. We will help you get set up with an appointment for ENT to further evaluate your throat and swallowing dysfunction. We are discharging you with the cough syrup Hycodan to help with your cough. Your foot was evaluated by podiatry and your lesions were related to a "blood blister". Please continue to use the shoe as advised by podiatry. It was a pleasure taking care of you while you were here.
[2023-04-07] MEDS: lamoTRIgine 25 MG TAB PO SCH (20:18)
[2023-04-07] MEDS ORDERED: FAMOTIDINE 20 MG TAB PO SCH (21:00)
== END 2023-04-07 20:40 | DRG 917 ==
LOC: ED 23:05 → 1E 03-25 00:40 → SUATTDRO 03-25 00:40 → 1E 03-25 00:49 → 4W 04-04 01:27

== ENCOUNTER 2023-04-07 18:42 | Inpatient (IN) ==
[2023-04-07] MEDS ORDERED: MAGNESIUM HYDROXIDE SUSP 30 ML UDC PO PRN (20:20)
[2023-04-07] MEDS ORDERED: BISMUTH SUBSALICYLATE LIQD 236 ML PO PRN (20:20)
[2023-04-07] MEDS ORDERED: ALUMINUM/MAGNESIUM SUSP 30 ML UDC PO PRN (20:20)
[2023-04-07] MEDS ORDERED: hydrOXYzine HCl 25 MG TAB PO PRN ×2 (20:20)
[2023-04-07] MEDS ORDERED: SODIUM CHLORIDE 0.65% NA SOLN 45 ML (OCEAN) PRN (20:20)
[2023-04-07] MEDS ORDERED: LORazepam 0.5 MG TAB PO PRN (21:19)
[2023-04-07] MEDS ORDERED: HYDROcodone/HOMATROPINE SYRUP 5MG/1.5MG 5ML UDP PO PRN (21:19)
[2023-04-07] MEDS ORDERED: BENZOCAINE 20% (ORAJEL) 11.9 GM TUBE MT PRN (21:24)
[2023-04-07] MEDS ORDERED: COUGH DROP (SUGAR FREE) LOZ 24 LOZ/1 BOX BUCCAL PRN (21:24)
[2023-04-07] MEDS ORDERED: oxyCODONE HCL IR 5 MG TAB (IMMEDIATE RELEASE) PO PRN (21:29)
[2023-04-08] MEDS: GABAPENTIN 400 MG CAP PO SCH ×2 (07:07→13:54)
--- NOTE | 2023-04-08 07:49 | History & Physical ---
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 She was started on risperidone and lamictal and so far has felt this is helping with mood symptoms and has not experienced any symptoms of psychosis. Suicide notes, which were part of the medical chart, suggest possible component of cluster B traits/interpersonal conflicts/externalization as well as unspecified trauma and stressor disorder, alcohol use and gender dysphoria as additional driving factors leading to suicide attempt and current psychiatric presentation. Discussed medication treatment options in detail. Discussed risks, benefits and alternatives. She would like to continue and consented to risperidone and lamictal for schizoaffective disorder. Reviewed side effects including but not limited to: potential for fatal rash, need for consistent use or to stop and not restart without first discussing dosing with psychiatric provider, need to seek emergent medical care if rash appeared with lamictal and movement (TD, NMS), cardiac (QTc prolongation), and metabolic (stroke, insulin resistance) and necessity for fasting lipid and glucose labwork and AIMS done with score of 0 with risperidone. The patient's audit score use history suggests problematic alcohol use. Brief intervention was offered and accepted including motivational interviewing. Intervention was greater than 5 minutes in length and included assessing readiness to quit, advice on how to reduce or abstain and to set a specific goal for this hospitalization. alteration worker will also assist in anticipating barriers to reducing or abstaining from substance use and in problem-solving for solutions to those problems while arranging for referral to appropriate t reatment. The patient is in action stage with regards to transtheoretical model of change. The patient is advised to decrease consumption due to depressant effects and risk of interaction with prescription medications. The patient agreed to avoid alcohol use and will be provided with recovery materials to continue to educate self on how to cope with their condition without using substances. MNPR-gender diverse Overall I spent a total of 80 minutes for this admission including review of chart records, review of labwork, direct evaluation of the patient, counseling the patient, ordering medication, risk assessment, discussion with the psychiatric liason RN and treatment team and documentation in the electronic health record. (1) Schizoaffective disorder, bipolar type: (2) Suicide attempt: (3) Trauma and stressor-related disorder: (4) Depression, unspecified: (5) Gender dysphoria: (6) Rheumatoid arthritis: Rheumatoid arthritis location: unspecified site Rheumatoid factor presence: unspecified presence Qualified Code(s): M06.9 - Rheumatoid arthritis, unspecified (7) Sciatic leg pain: Plan 04/08/2023: The patient was admitted to the [facility] ([facility]) on q15 min checks (behavioral with suicide precautions) for safety. The patient will participate in group, recreational, and milieu therapies and will be offered additional individual and family sessions as clinically appropriate. * Continue lamictal 50mg daily * Continue risperidone 0.25mg BID * Restarted hormone replacement therapy medications * Will continue cough suppressant medications and pain medications for now as started by medical team to help with resolution of symptoms from recent intubation Inventory Assets Strengths: supportive relationships, willing to get treatment Needs: safety and stabilization, medication adjustment, additional coping skills, increased outpatient services Suicide Risk Level Suicide Risk Level: High-Moderate (q15 min suicide checks) (serious suicide attempt prior to admission but now reporting some improvement in mood, denies SI, more future-oriented and feels safe in the hospital, and agrees to let nursing/staff know should they develop plan, intent or feel unable to remain safe. 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 Chief Complaint "The flashbacks and PTSD symptoms had worsened a lot". History of Present Illness Ethel was admitted to the ICU and intubated for many days for a suicide attempt via overdose of unknown quantity of alcohol and lorazepam and subsequent medical admission for stabilization. She is now admitted psychiatrically following serious suicide for ongoing depression and gender dysphoria. Additional recent history from initial psychiatric consult by Dr. Porter on 04/01/2023: "Patient ingested 15 mg of Ativan with alcohol and aspirated. She was surprisingly clear and jovial during today's assessment. She stated that she wanted to be "done" with her parents but otherwise "it's a long story" and did not elaborate as otherwise still on oxygen/short of breath. States surprise to have woken up but has denied SI in the immediate hospital stay and states will agree to inpatient care when medically cleared (assuming no need for physical rehab). Parents were outside of the door and she repeatedly stated she wanted them to leave. She does not want information shared or released and refused to read a hand written note mother prepared before leaving. She denies hallucinations though describes some delirium after the ingestion, "it's like I have a memory but it must have been a hallucination." Reviewed with patient they are currently on Lamictal and Risperdal 0.25 mg po BID as per ICU consultation with Dr. Jose Celis at [facility]. Therapy has been with [facility]. past med trials of lurasidone, luvox, modafinil for ADHD, Ritalin, trazodone, Caplyta, Ativan. previous psych hospitalizations in [place]--4-5 in midteens. [facility] as above May 2022." As Ethel has recovered medically she has been followed on the medical service and has reported lessening of SI and feels her mood symptoms have been fairly stable with initiation of risperidone and lamictal which she is tolerating well so far. Her biggest stressors have been ongoing physical pain and some issues related to prolonged ICU stay and intubation including persistent cough, throat irritation, and bullous hemorrhagic dermatitis of left fourth and fifth toe which has increased her anxiety and lead to increased physical weakness. Additional stressors have been conflict with family, inability to get in touch with her roommate/access her cellphone which remains at the apartment and not being able to talk to a professor and friend who has historically been a very good support. She feels that prior to the suicide attempt the biggest pro blematic symptom she had been dealing with was worsening of flashbacks and PTSD symptoms. She reports no recent symptoms of psychosis, even when she stopped the Caplyta prior to admission and she had stopped her prior to admission modafinil and trazodone as these had not been helping. Past Psychiatric History Current Psychiatric Diagnosis: Unspecified Depressive Disorder Outpatient Services: psychiatry with Dr. Celis at [facility] via telemedicine appointments, [facility] Previous Psych Admissions: -most recently [facility] in February 2023 for depression -[facility] in late May/early Jun 2022 -~4-5 prior psychiatric hospitalizations in [place] Do You Have Access To A Gun?: No History of Previous Suicide Attempt: Yes Describe Attempts in the Past: overdose leading to this admission Past Medication Trials: hx antidepressant trials leading to saba, hx Caplyta, hx modafinil, hx trazodone, hx ativan, hx methylphenidate, hx Latuda, hx gabapentin, hx Luvox Past Head Trauma/Neuro History History of Concussion/Seizure: No Allergies Allergy/AdvReac Type Severity Reaction Status Date / Time azithromycin [From Zithromax] Allergy Intermediate Rash Verified 03/24/23 23:31 Home Medications Medication Instructions Recorded Confirmed Type adalimumab 40 mg/0.4 mL 40 mg subcut DIRECTED 03/11/23 03/24/23 History subcutaneous pen kit (Humira(CF) Pen) finasteride 5 mg tablet 5 mg PO DAILY 03/11/23 03/24/23 History gabapentin 100 mg capsule 200 mg PO BID 03/11/23 03/24/23 History lamotrigine 25 mg tablet (Lamictal) 50 mg PO QPM 03/11/23 03/24/23 History lumateperone 42 mg capsule 42 mg PO QPM 03/11/23 03/24/23 History (Caplyta) spironolactone 50 mg tablet 50 mg PO BID 03/11/23 03/24/23 History estradiol 2 mg tablet 2 mg PO BID 03/24/23 03/24/23 History lorazepam 0.5 mg tablet 0.5 mg PO Q8 PRN Anxiety 03/24/23 03/24/23 History modafinil 100 mg tablet 100 mg PO DAILY 03/24/23 03/24/23 History omeprazole 40 mg capsule,delayed 40 mg PO QAM 03/24/23 03/24/23 History release trazodone 50 mg tablet 50 mg PO BID 11/01/23 11/01/23 History hydrocodone-homatropine 5 mg-1.5 5 ml PO Q6H PRN cough #473 mL 04/07/23 Rx mg/5 mL oral syrup (Hydromet) Family History Family History of: Doesn't Know Alcohol History Hx of Alcohol Use Over the Past 12 Months: Yes (overdose attempt) AUDIT Total Score: 9 Smoking Use Have You Smoked or Used Tobacco Products in the Last 30 Days: No Smoking Status: Never smoker Substance History Hx of Prescription Med Misuse Over the Past 12 Months: Yes (ativan overdose) Hx of Over the Counter Med Misuse Over the Past 12 Months: No Hx of Inhalent Misuse Over the Past 12 Months: No Hx of Organic Substance Use Over the Past 12 Months: No Hx of Illegal Substances/Street Drug Use Over Past 12 Months: No Problems as a Result of Past Substance Use: None Identified Personal History Living Arrangements: Apartment Highest Grade Completed: Graduate School Employment Status: Student Marital Status: Single Beliefs That Will Affect Care: None Current Legal Problems: No Hx Legal Problems: No Hx Traumatic Life Events: Yes (extensive childhood trauma) Patient History Medical History Schizoaffective disorder, bipolar type Encounter for pre-operative examination Vermiculation Suicidal ideations Rheumatoid arthritis Surgical History No significant past surgical history Family History Other Back pain Social History Smoking Status: Never smoker Second Hand Exposure: No; Do You Dip or Chew Tobacco: No; Preferred Language: Korean Communication Ability: Effective Communication Ability Comment: unable to assess currently intubated Tubing Machine Tender Required: No Beliefs That Will Affect Care: None marital status: Single Current Living Situation: Alone Current Living Situation Comment: college student current occupational status: student Feels Safe at Home: Yes Gender Identity: Transgender Female Assistive Devices: Brace/Splint/Immobilizer, Glasses and Walker Assistive Devices Comment: right foot boot Review of Systems Review of Systems: All systems reviewed & are unremarkable except as noted in HPI & below Physical Exam Psychiatric: Orientation: alert and oriented x 3 Apperance: appropriately dressed and appropriately groomed Eye Contact: good eye contact Motor Behavior: no abnormal motor movements Speech: normal rate/rhythm/volume of speech Affect: + anxious affect Mood: + depressed mood and + anxious mood Thought Process: goal directed thought process Thought Content: reality based without delusions Suicidal Thoughts: denies suicidal plan and denies suicidal intent; + reports suicidal thoughts (none currently but s/p serious attempt) Homicidal Thoughts: denies homicidal thoughts Hallucinations: no auditory hallucinations and no visual hallucinations Cognition: recent memory grossly intact, remote memory grossly intact, attention grossly intact and language grossly intact Estimated Intelligence: consistent with education level Insight: + limited insight Judgment: + limited judgement Vital Signs (Past 24 Hours): Last Vital Signs Temp 36.4 C 04/08/23 06:34 Pulse 82 04/08/23 06:35 Resp 18 04/08/23 06:34 BP 112/66 04/08/23 06:35 Pulse Ox 94 04/08/23 06:34 O2 Del Method Room Air 04/08/23 06:34 Exam Statement: A physical exam was performed on the medical floor by Dr. العراقي for the purposes of medical clearance. I accept that physical as correct and adequate for the purposes of the inpatient physical exam. Results & Data ([facility]) Current Inpatient Medications Current Inpatient Medications: Current Inpatient Medications Acetaminophen (Acetaminophen 325 Mg Tab) 650 mg PO Q4H PRN PRN Reason: Headache or Minor Fever Stop: 05/07/23 20:19 Al Hydrox/Mg Hydrox/Simethicone (Aluminum/Magnesium Susp 30 Ml Udc) 30 ml PO Q4H PRN PRN Reason: GI Upset Stop: 05/07/23 20:19 Bacitracin (Bacitracin Oint 14 Gm Tube) 1 appln EXT BID KIKA Stop: 05/08/23 08:59 Benzocaine (Benzocaine 20% (Orajel) 11.9 Gm Tube) 1 appln MT Q6H PRN PRN Reason: mouth pain Stop: 05/07/23 21:23 Benzonatate (Benzonatate 100 Mg Capsule) 100 mg PO TID KIKA Stop: 05/08/23 08:59 Bismuth Subsalicylate (Bismuth Subsalicylate Liqd 236 Ml) 15 ml PO PRN PRN PRN Reason: Loose Stool Stop: 05/07/23 20:19 Docusate Sodium (Docusate Sodium 100 Mg Cap) 100 mg PO BID KIKA Stop: 05/08/23 08:59 Gabapentin (Gabapentin 400 Mg Cap) 400 mg PO [id number] [facility] Stop: 05/08/23 06:59 Last Admin: 04/08/23 07:07 Dose: 400 mg Guaifenesin (Guaifenesin 600 Mg Tabcr) 600 mg PO Q12 KIKA Stop: 05/08/23 08:59 Hydrocodone Bit/Homatropine Methylb (Hydrocodone/Homatropine Syrup 5mg/1.5mg 5ml Udp) 5 ml PO Q6H PRN PRN Reason: cough Stop: 04/21/23 21:18 Hydroxyzine HCl (Hydroxyzine Hcl 25 Mg Tab) 50 mg PO HSZ PRN PRN Reason: Insomnia Stop: 05/07/23 20:19 Hydroxyzine HCl (Hydroxyzine Hcl 25 Mg Tab) 25 mg PO Q4H PRN PRN Reason: Anxiety Stop: 05/07/23 20:19 Lamotrigine (Lamotrigine 25 Mg Tab) 50 mg PO QPM [facility] Stop: 05/08/23 20:59 Magnesium Hydroxide (Magnesium Hydroxide Susp 30 Ml Udc) 30 ml PO DAILY PRN PRN Reason: Constipation Stop: 05/07/23 20:19 Menthol (Cough Drop (Sugar Free) Andrez 24 Andrez/1 Box) 1 andrez BUCCAL 6XD PRN PRN Reason: Sore Throat Stop: 05/07/23 21:23 Oxycodone HCl (Oxycodone Hcl Ir 5 Mg Tab (Immediate Release)) 5 mg PO BID PRN PRN Reason: Pain Stop: 04/21/23 21:28 Pantoprazole Sodium (Pantoprazole 40 Mg Tab) 40 mg PO QAM [facility]; Protocol Stop: 05/08/23 08:59 Polyethylene Glycol (Polyethylene (Miralax) 17 Gm Pack) 17 gm PO DAILY [facility] Stop: 05/08/23 08:59 Risperidone (Risperidone 0.5 Mg Tablet) 0.25 mg PO BID [facility] Stop: 05/08/23 08:59 Sodium Chloride (Sodium Chloride 0.65% Na Soln 45 Ml ([place])) 1 - 2 sprays NA PRN PRN PRN Reason: Nasal Dryness/Congestion Stop: 05/07/23 20:19
[2023-04-08] MEDS: guaiFENesin 600 MG TABCR PO SCH ×2 (08:47→21:07)
[2023-04-08] MEDS: BENZONATATE 100 MG CAPSULE PO SCH ×3 (08:47→21:07)
[2023-04-08] MEDS: PANTOprazole 40 MG TAB PO SCH (08:47)
[2023-04-08] MEDS: risperiDONE 0.5 MG TABLET PO SCH ×2 (08:48→21:10)
[2023-04-08] MEDS: BACITRACIN OINT 14 GM TUBE EXT SCH ×2 (08:55→21:04)
[2023-04-08] MEDS ORDERED: DOCUSATE SODIUM 100 MG CAP PO SCH (09:00)
[2023-04-08] MEDS ORDERED: POLYETHYLENE (MIRALAX) 17 GM PACK PO SCH (09:00)
[2023-04-08] MEDS: SPIRONOLACTONE 25 MG TAB PO SCH (16:57)
[2023-04-08] MEDS: HYDROcodone/HOMATROPINE SYRUP 5MG/1.5MG 5ML UDP PO PRN (17:16)
[2023-04-08] MEDS: ACETAMINOPHEN 325 MG TAB PO PRN (19:50)
[2023-04-08] MEDS: estradioL 1 MG TAB PO SCH (21:05)
[2023-04-08] MEDS: lamoTRIgine 25 MG TAB PO SCH (21:08)
[2023-04-09] MEDS: GABAPENTIN 400 MG CAP PO SCH ×2 (06:39→13:01)
--- NOTE | 2023-04-09 08:54 | Psychiatric Progress Note ---
Date of Service April 09, 2023 Impression / Recommendations Impression Ethel is a 27-year-old transgender woman, prefers she/her pronouns, and [employer] with a history of schizoaffective disorder, ADHD, significant childhood trauma, rheumatoid arthritis, admitted following a serious suicide attempt via overdose of aspirin and alcohol requiring prolonged ICU admission with intubation and subsequent medical admission. She was started on risperidone and lamictal and so far has felt this is helping with mood symptoms and has not experienced any symptoms of psychosis. Suicide notes, which were part of the medical chart, suggest possible component of cluster B traits/interpersonal conflicts/externalization as well as unspecified trauma and stressor disorder, alcohol use and gender dysphoria as additional driving factors leading to suicide attempt and current psychiatric presentation. MNPR-gender diverse 04/09/2023: Discussed possibility of a diagnosis such as autism spectrum disorder and PTSD possibly better fitting her experiences/symptoms over time compared with schizoaffective disorder. Continues to tolerate current medications well. Ongoing weakness, sore throat, improving cough related to extended ICU admission and intubation. Overall, I spent a total of 55 minutes with this case including review of chart records, direct evaluation of the patient, counseling the patient, discussion during interdisciplinary treatment rounds, risk assessment, and documentation in the electronic health record. (1) Schizoaffective disorder, bipolar type: (2) Suicide attempt: (3) Trauma and stressor-related disorder: (4) Depression, unspecified: (5) Gender dysphoria: (6) Rheumatoid arthritis: (7) Sciatic leg pain: Plan 04/09/2023: Continue current medications and tx plan. 04/08/2023: The patient was admitted to the [facility] ([facility]) on q15 min checks (behavioral with suicide precautions) for safety. The patient will participate in group, recreational, and milieu therapies and will be offered additional individual and family sessions as clinically appropriate. * Continue lamictal 50mg daily * Continue risperidone 0.25mg BID * Restarted hormone replacement therapy medications * Will continue cough suppressant medications and pain medications for now as started by medical team to help with resolution of symptoms from recent intubation Inventory Assets Strengths: supportive relationships, willing to get treatment Needs: safety and stabilization, medication adjustment, additional coping skills, increased outpatient services Suicide Risk Level Suicide Risk Level: Moderate (q15 min suicide checks) (serious suicide attempt prior to admission but now reporting some improvement in mood, denies SI, more future-oriented and feels safe in the hospital, and agrees to let nursing/staff know should they develop plan, intent or feel unable to remain safe. ) Risk Factors Assessment Do You Have Access To A Gun?: No Health Problems: Yes Mental Health Diagnoses: Yes Substance Use Disorders: Yes Previous Attempt: Yes Previous Psychiatric Hospitalization: Yes Protective Factors Assessment Stable Relationships: Yes Supportive Family: No Good Rapport with Provider: Yes Interval History Identifying Information Ethel LEZAMA is a 27-year-old transgender woman, she/her pronouns, and [employer] who currently lives in [place] with a roommate, has a history of schizoaffective disorder, ADHD, rheumatoid arthritis, ANUEL but doesn't use CPAP, and was admitted on 04/07/23 20:45 on a 201 voluntary commitment following a serious suicide attempt via overdose of aspirin and alcohol requiring prolonged ICU admission with intubation and subsequent medical admission. Chief Complaint "I'm doing pretty good". Review of Systems Sleep Information Total Hours of Sleep: 7 Meal Information Percent Meal Consumed - Breakfast: 10 Percent Meal Consumed - Lunch: 50 Percent Meal Consumed - Dinner: 75 Nutrition Comment: painful swallowing r/t recent intubation Subjective Subjective Patient was seen & assessed and interval progress reviewed with treatment team nursing and social work. Attending groups. Had a friend visit last evening. She reports having a tough morning due to cough and weakness but improved after breakfast and then got a little worse physically this afternoon from physical weakness. Met with PT who suggested she transition from a walker to a cane. Wound care addressed toe. She reports long history of visual perceptual changes, since kindergarten, of seeing spots or waves or movement when looking a certain stationary objects like the carpet but has never found this distressing. Discussed if autism had ever been mentioned before in discussing possible diagnoses and Ethel described speech delay as a child, delayed fine motor skills impacting hand writing and assessment as a child that found many classic symptoms of ASD except that she made good eye contact and scored well on all IQ testing per her report. Discussed her sense that "cPTSD" plays a big role in why she sometimes becomes "paranoid" in relationships or friendships and overall impact of trauma on how she moves through the world. She continues to find her current medications helpful. Physical Exam Psychiatric Orientation: alert and oriented x 3 Apperance: appropriately dressed and appropriately groomed Eye Contact: good eye contact Motor Behavior: + abnormal motor movements (rocking at times) Speech: normal rate/rhythm/volume of speech Affect: + constricted affect Mood: + anxious mood; no depressed mood Thought Process: + circumstantial thought process Thought Content: reality based without delusions Suicidal Thoughts: denies suicidal plan and denies suicidal intent; + reports suicidal thoughts (none currently but s/p serious attempt) Homicidal Thoughts: denies homicidal thoughts Hallucinations: + visual hallucinations (intermittent visual perceptual changes); no auditory hallucinations Cognition: recent memory grossly intact, remote memory grossly intact, attention grossly intact and language grossly intact Estimated Intelligence: consistent with education level Insight: + limited insight Judgment: + limited judgement Vital Signs (Past 24 Hours) Last Vital Signs Temp 36.2 C L 04/09/23 06:00 Pulse 88 04/09/23 06:00 Resp 18 04/09/23 06:00 BP 122/73 04/09/23 06:00 Pulse Ox 95 04/09/23 06:00 O2 Del Method Room Air 04/09/23 06:00 Results & Data ([facility]) Current Inpatient Medications Current Inpatient Medications: Current Inpatient Medications Acetaminophen (Acetaminophen 325 Mg Tab) 650 mg PO Q4H PRN PRN Reason: Headache or Minor Fever Stop: 05/07/23 20:19 Last Admin: 04/08/23 19:50 Dose: 650 mg Al Hydrox/Mg Hydrox/Simethicone (Aluminum/Magnesium Susp 30 Ml Udc) 30 ml PO Q4H PRN PRN Reason: GI Upset Stop: 05/07/23 20:19 Bacitracin (Bacitracin Oint 14 Gm Tube) 1 appln EXT BID KIKA Stop: 05/08/23 08:59 Last Admin: 04/08/23 21:04 Dose: 1 appln Benzocaine (Benzocaine 20% (Orajel) 11.9 Gm Tube) 1 appln MT Q6H PRN PRN Reason: mouth pain Stop: 05/07/23 21:23 Benzonatate (Benzonatate 100 Mg Capsule) 100 mg PO TID KIKA Stop: 05/08/23 08:59 Last Admin: 04/08/23 21:07 Dose: 100 mg Bismuth Subsalicylate (Bismuth Subsalicylate Liqd 236 Ml) 15 ml PO PRN PRN PRN Reason: Loose Stool Stop: 05/07/23 20:19 Estradiol (Estradiol 1 Mg Tab) 2 mg PO BID [facility] Stop: 05/08/23 20:59 Last Admin: 04/08/23 21:05 Dose: 2 mg Finasteride (Finasteride 5 Mg Tab) 5 mg PO QAM [facility] Stop: 05/09/23 08:59 Gabapentin (Gabapentin 400 Mg Cap) 400 mg PO [id number] [facility] Stop: 05/08/23 06:59 Last Admin: 04/09/23 06:39 Dose: 400 mg Guaifenesin (Guaifenesin 600 Mg Tabcr) 600 mg PO Q12 KIKA Stop: 05/08/23 08:59 Last Admin: 04/08/23 21:07 Dose: 600 mg Hydrocodone Bit/Homatropine Methylb (Hydrocodone/Homatropine Syrup 5mg/1.5mg 5ml Udp) 5 ml PO AC PRN PRN Reason: cough Stop: 04/21/23 21:18 Last Admin: 04/08/23 17:16 Dose: 5 ml Hydroxyzine HCl (Hydroxyzine Hcl 25 Mg Tab) 50 mg PO HSZ PRN PRN Reason: Insomnia Stop: 05/07/23 20:19 Hydroxyzine HCl (Hydroxyzine Hcl 25 Mg Tab) 25 mg PO Q4H PRN PRN Reason: Anxiety Stop: 05/07/23 20:19 Lamotrigine (Lamotrigine 25 Mg Tab) 50 mg PO QPM [facility] Stop: 05/08/23 20:59 Last Admin: 04/08/23 21:08 Dose: 50 mg Magnesium Hydroxide (Magnesium Hydroxide Susp 30 Ml Udc) 30 ml PO DAILY PRN PRN Reason: Constipation Stop: 05/07/23 20:19 Menthol (Cough Drop (Sugar Free) Andrez 24 Andrez/1 Box) 1 andrez BUCCAL 6XD PRN PRN Reason: Sore Throat Stop: 05/07/23 21:23 Oxycodone HCl (Oxycodone Hcl Ir 5 Mg Tab (Immediate Release)) 5 mg PO BID PRN PRN Reason: Pain Stop: 04/21/23 21:28 Pantoprazole Sodium (Pantoprazole 40 Mg Tab) 40 mg PO QAM [facility]; Protocol Stop: 05/08/23 08:59 Last Admin: 04/08/23 08:47 Dose: 40 mg Risperidone (Risperidone 0.5 Mg Tablet) 0.25 mg PO BID KIKA Stop: 05/08/23 08:59 Last Admin: 04/08/23 21:10 Dose: 0.25 mg Sodium Chloride (Sodium Chloride 0.65% Na Soln 45 Ml ([place])) 1 - 2 sprays NA PRN PRN PRN Reason: Nasal Dryness/Congestion Stop: 05/07/23 20:19 Spironolactone (Spironolactone 25 Mg Tab) 50 mg PO BIDM KIKA Stop: 05/08/23 17:44 Last Admin: 04/08/23 16:57 Dose: 50 mg Mental Health & Subst Abuse Tx Therapist Name of Therapist: Gaby Johnston Post Discharge Appointments Primary Care Physician Name Of Family Doctor/PCP: Kleber Hoover (6) Rheumatoid arthritis Rheumatoid arthritis location: unspecified site Rheumatoid factor presence: unspecified presence Qualified Code(s): M06.9 - Rheumatoid arthritis, unspecified
[2023-04-09] MEDS: HYDROcodone/HOMATROPINE SYRUP 5MG/1.5MG 5ML UDP PO PRN ×3 (09:01→17:04)
[2023-04-09] MEDS: BACITRACIN OINT 14 GM TUBE EXT SCH ×2 (09:03→21:56)
[2023-04-09] MEDS: FINASTERIDE 5 MG TAB PO SCH (09:04)
[2023-04-09] MEDS: risperiDONE 0.5 MG TABLET PO SCH ×2 (09:04→22:01)
[2023-04-09] MEDS: PANTOprazole 40 MG TAB PO SCH (09:04)
[2023-04-09] MEDS: BENZONATATE 100 MG CAPSULE PO SCH ×3 (09:04→21:58)
[2023-04-09] MEDS: SPIRONOLACTONE 25 MG TAB PO SCH ×2 (09:05→17:43)
[2023-04-09] MEDS: guaiFENesin 600 MG TABCR PO SCH ×2 (09:05→22:00)
[2023-04-09] MEDS: estradioL 1 MG TAB PO SCH ×2 (10:29→21:58)
[2023-04-09] MEDS: lamoTRIgine 25 MG TAB PO SCH (22:00)
--- OUTSIDE RECORDS SUMMARY | 2023-04-09 23:32 | External Medical Summary | Summary of Care ---
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 Name Role Phone Renata Waters MD Primary Care Provider [phone] Reason for Visit * Reason Onset Date Comments Hospital Follow-Up 04/05/2023 Encounter Details Date Type Department Care Team (Late st Contact Info) Description 04/05/2023 Telephone General Internal Medicine [facility] [address] [facility] [place] [id number] Renata Waters MD [address] [place] [address] Hospital Follow-Up Allergies Active Allergy Reactions Criticality Noted Date Comments Azithromycin 02/07/2021 rash documented as of this encounter (statuses as of 04/06/2023) Medications Medication Sig Dispensed Refills Start Date [...] 0 Active lamoTRIgine 25 MG Oral Tablet (LaMICtal)Indications :in pm Take 2 Tablets by mouth daily. 2 daily 0 07/30/2022 Active Sparks-3 1000 MG Oral Capsule Take 2 Capsules by mouth in the morning and 2 Capsules before bedtime. 2 caps three times daily. 0 Active Lurasidone HCl 80 MG Oral Tablet (Latuda) Take 1 Tablet by mouth at bedtime. 0 08/06/2022 Active FeroSul 325 (65 Fe) MG Oral TabletIndications:Gas troesophageal reflux disease with esophagitis and hemorrhage Take 1 Tablet by mouth in the morning and 1 Tablet in the evening. 60 Tablet 5 12/23/2022 Active Omeprazole 40 MG Oral Capsule Delayed Release (PriLOSEC)Indications :Gastroesophageal reflux disease with esophagitis and hemorrhage take 1 capsule by mouth every morning 90 Capsule 0 03/19/2023 Active documented as of this encounter (statuses as of 04/06/2023) Active Problems Problem Noted Date Diagnosed Date BMI 40.0-44.9, adult 11/30/2022 Encounter for therapeutic drug monitoring 2021 Schizophrenia 04/29/2021 BMI 38.0-38.9,adult 02/07/2021 Obstructive sleep apnea, adult 09/27/2017 RONI (generalized anxiety disorder) 05/22/2015 Rheumatoid arthritis of [facility] with negative rheumatoid factor Gastroesophageal reflux disease without esophagi tis Allergic sinusitis documented as of this encounter (statuses as of 04/06/2023) Immunizations Name Administration Dates Next Due COVID-19 mRNA, LNP-s, No Pre serve, 2-Dose Series (Powered Outcomes) 01/22/2021,08/05/2020,07/22/2020 SEASONAL INFLUENZA, PF, 6 M & Above, IM , (FLULAVAL or FLUZONE) 02/07/2021 Seasonal Influenza Virus Vac cine, Unspecified Formulation 02/07/2021 documented as of this encounter Social History Tobacco Use Types Packs/Day Years Used Date Smoking Tobacco: Never Smokeless Tobacco: Never Alcohol Use Standard Drinks/Week Comments Never 0 (1 standard drink = 0.6 oz pur e alcohol) AUDIT-C Answer Date Recorded Q1: How often do you have a drink containing alc ohol? Never 02/07/2021 Average Number of Drinks Not on file 021 Frequency of Binge Drinking Not on file 01/22 Sex and Gender Information Value Date Recorded Sex Assigned at Not on file Gender Identity Not on file Sexual Orientation Not on file Job Start Date Occupation Industry Not on file Not on file Not on file documented as of this encounter Miscellaneous Notes * Telephone Encounter - Elizabet Wren OSA - 04/06/2023 9:05 AM EST Left message to call ENT back Thank you Elizabet * Telephone Encounter - Tera Salgado PA-C - 04/06/2023 8:43 AM EST I could see him Apr 29 sometime in the morning, before 11:30. Thank you! Tera Salgado PA-C * Telephone Encounter - Lola Daniels LPN - 04/06/2023 8:16 AM EST Patient will be getting discharged. When would be an appropriate time to have patient scheduled. * Telephone Encounter - Vincent Goff RN - 04/05/2023 3:45 PM EST Patient intubated . During intubation had periods of agitation/thrashing and emesis while intubated. Currently has hoarse vocal quality/dysphonia. Pt has increased coughing with talking. Requesting an outpatient ENT consultation to r/o damage to vocal folds and larynx. Can you please assist with scheduling an appointment. Thank you documented in this encounter Plan of Treatment Upcoming Encounters Date Type Department Care Team (Late st Contact Info) Description 05/25/2023 2:00 PM EST Office Visit General Internal Medicine [facility] [address] [place] [address] Renata Waters MD [address] [facility] [place] [address] 09/28/2023 4:00 PM EDT Office Visit Rheumatology [facility] [address] [facility] [place] [address] Brando Degroot MD [address] [place] [address] Health Maintenance Due Date Last Done Comments [...] Not on filedocumented as of this encounter Care Teams Woodworking Machine Feeder Relationship Specialty Start Date End Date Renata Waters MD [address] [facility] [place] [address] PCP - General Internal Medicine 05/10/21 documented as of this encounter
[2023-04-10] MEDS: GABAPENTIN 400 MG CAP PO SCH ×2 (06:34→13:55)
[2023-04-10] MEDS: SPIRONOLACTONE 25 MG TAB PO SCH ×2 (09:35→16:50)
[2023-04-10] MEDS: guaiFENesin 600 MG TABCR PO SCH ×2 (09:36→20:09)
[2023-04-10] MEDS: estradioL 1 MG TAB PO SCH ×2 (09:36→20:10)
[2023-04-10] MEDS: BENZONATATE 100 MG CAPSULE PO SCH ×3 (09:36→20:08)
[2023-04-10] MEDS: PANTOprazole 40 MG TAB PO SCH (09:36)
[2023-04-10] MEDS: BACITRACIN OINT 14 GM TUBE EXT SCH ×2 (09:37→20:08)
[2023-04-10] MEDS: FINASTERIDE 5 MG TAB PO SCH (09:37)
[2023-04-10] MEDS: risperiDONE 0.5 MG TABLET PO SCH ×2 (09:38→20:15)
[2023-04-10] MEDS: HYDROcodone/HOMATROPINE SYRUP 5MG/1.5MG 5ML UDP PO PRN ×3 (09:42→17:23)
--- NOTE | 2023-04-10 10:58 | Psychiatric Progress Note ---
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 She was started on risperidone and lamictal and so far has felt this is helping with mood symptoms and has not experienced any symptoms of psychosis. Suicide notes, which were part of the medical chart, suggest possible component of cluster B traits/interpersonal conflicts/externalization as well as unspecified trauma and stressor disorder, alcohol use and gender dysphoria as additional driving factors leading to suicide attempt and current psychiatric presentation. MNPR-gender diverse 04/10/2023: When asked how she was doing and how she'd ended up admitted here, pt gives a very overinclusive, circumstantial report of various life stressors without ever mentioning having overdosed or having been on a ventilator. Clearly does recall this, as evidenced by referring to it as an explanation for cough. Denies any psychotic symptoms in contrast to May admission when prominent vermiculation was reported. Endorses depressed mood only. Reviewed current medication, including lamotrigine that has never been increased above 50 mg. Pt agrees to increase to 100 mg. 04/09/2023: Discussed possibility of a diagnosis such as autism spectrum disorder and PTSD possibly better fitting her experiences/symptoms over time compared with schizoaffective disorder. Continues to tolerate current medications well. Ongoing weakness, sore throat, improving cough related to extended ICU admission and intubation. (1) Schizoaffective disorder, bipolar type: (2) Suicide attempt: (3) Trauma and stressor-related disorder: (4) Depression, unspecified: (5) Gender dysphoria: (6) Rheumatoid arthritis: (7) Sciatic leg pain: Plan 04/10/2023: * increase lamotrigine to 100 mg daily - increased from prior to admission dose of 50 mg daily * continue risperidone 0.25 mg BID 04/09/2023: Continue current medications and tx plan. 04/08/2023: The patient was admitted to the [facility] ([facility]) on q15 min checks (behavioral with suicide precautions) for safety. The patient will participate in group, recreational, and milieu therapies and will be offered additional individual and family sessions as clinically appropriate. * Continue lamictal 50mg daily * Continue risperidone 0.25mg BID * Restarted hormone replacement therapy medications * Will continue cough suppressant medications and pain medications for now as started by medical team to help with resolution of symptoms from recent intubation Inventory Assets Strengths: supportive relationships, willing to get treatment Needs: safety and stabilization, medication adjustment, additional coping skills, increased outpatient services Suicide Risk Level Suicide Risk Level: Moderate (q15 min suicide checks) (serious suicide attempt prior to admission but now reporting some improvement in mood, denies SI, more future-oriented and feels safe in the hospital, and agrees to let nursing/staff know should they develop plan, intent or feel unable to remain safe. 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 Chief Complaint "It's different symptoms this time". Review of Systems Sleep Information Total Hours of Sleep: 6 Meal Information Percent Meal Consumed - Breakfast: 100 Percent Meal Consumed - Lunch: 100 Percent Meal Consumed - Dinner: 100 Nutrition Comment: painful swallowing r/t recent intubation Subjective Subjective The patient was seen and assessed and interval progress reviewed in a mul tidisciplinary team meeting with the treatment team. For details, see the "Impression" section. Overall I spent a total of 37 minutes for this inpatient follow-up including review of chart records, review of test results, direct evaluation of the patient [id number], counseling the patient, reconciling and ordering medication, medication education with the patient, risk assessment, discussion during interdisciplinary treatment rounds, and documentation in the electronic health record. Physical Exam Psychiatric Orientation: alert and oriented x 3 Apperance: appropriately dressed and appropriately groomed Eye Contact: good eye contact Motor Behavior: + abnormal motor movements (rocking at times) Speech: normal rate/rhythm/volume of speech Affect: + anxious affect, + flat affect and + constricted affect Mood: + anxious mood; no depressed mood Thought Process: goal directed thought process and + circumstantial thought process Thought Content: reality based without delusions Suicidal Thoughts: denies suicidal plan and denies suicidal intent; + reports suicidal thoughts (none currently but s/p serious attempt) Homicidal Thoughts: denies homicidal thoughts Hallucinations: + visual hallucinations (intermittent visual perceptual changes ); no auditory hallucinations Cognition: recent memory grossly intact, remote memory grossly intact, attention grossly intact and language grossly intact Estimated Intelligence: consistent with education level Insight: + limited insight Judgment: + limited judgement Vital Signs (Past 24 Hours) Last Vital Signs Temp 37 C 04/10/23 06:42 Pulse 98 H 04/10/23 06:43 Resp 16 04/10/23 06:42 BP 118/80 04/10/23 06:43 Pulse Ox 95 04/09/23 06:00 O2 Del Method Room Air 04/09/23 06:00 Results & Data ([facility]) Current Inpatient Medications Current Inpatient Medications: Current Inpatient Medications Acetaminophen (Acetaminophen 325 Mg Tab) 650 mg PO Q4H PRN PRN Reason: Headache or Minor Fever Stop: 05/07/23 20:19 Last Admin: 04/08/23 19:50 Dose: 650 mg Al Hydrox/Mg Hydrox/Simethicone (Aluminum/Magnesium Susp 30 Ml Udc) 30 ml PO Q4H PRN PRN Reason: GI Upset Stop: 05/07/23 20:19 Bacitracin (Bacitracin Oint 14 Gm Tube) 1 appln EXT BID [facility] Stop: 05/08/23 08:59 Last Admin: 04/10/23 09:37 Dose: 1 appln Benzocaine (Benzocaine 20% (Orajel) 11.9 Gm Tube) 1 appln MT Q6H PRN PRN Reason: mouth pain Stop: 05/07/23 21:23 Benzonatate (Benzonatate 100 Mg Capsule) 100 mg PO TID KIKA Stop: 05/08/23 08:59 Last Admin: 04/10/23 09:36 Dose: 100 mg Bismuth Subsalicylate (Bismuth Subsalicylate Liqd 236 Ml) 15 ml PO PRN PRN PRN Reason: Loose Stool Stop: 05/07/23 20:19 Estradiol (Estradiol 1 Mg Tab) 2 mg PO BID KIKA Stop: 05/08/23 20:59 Last Admin: 04/10/23 09:36 Dose: 2 mg Finasteride (Finasteride 5 Mg Tab) 5 mg PO QAM [facility] Stop: 05/09/23 08:59 Last Admin: 04/10/23 09:37 Dose: 5 mg Gabapentin (Gabapentin 400 Mg Cap) 400 mg PO [id number] [facility] Stop: 05/08/23 06:59 Last Admin: 04/10/23 06:34 Dose: 400 mg Guaifenesin (Guaifenesin 600 Mg Tabcr) 600 mg PO Q12 [facility]IK[facility] Stop: 05/08/23 08:59 Last Admin: 04/10/23 09:36 Dose: 600 mg Hydrocodone Bit/Homatropine Methylb (Hydrocodone/Homatropine Syrup 5mg/1.5mg 5ml Udp) 5 ml PO AC PRN PRN Reason: cough Stop: 04/21/23 21:18 Last Admin: 04/10/23 09:42 Dose: 5 ml Hydroxyzine HCl (Hydroxyzine Hcl 25 Mg Tab) 50 mg PO HSZ PRN PRN Reason: Insomnia Stop: 05/07/23 20:19 Hydroxyzine HCl (Hydroxyzine Hcl 25 Mg Tab) 25 mg PO Q4H PRN PRN Reason: Anxiety Stop: 05/07/23 20:19 Lamotrigine (Lamotrigine 25 Mg Tab) 50 mg PO QPM [facility] Stop: 05/08/23 20:59 Last Admin: 04/09/23 22:00 Dose: 50 mg Magnesium Hydroxide (Magnesium Hydroxide Susp 30 Ml Udc) 30 ml PO DAILY PRN PRN Reason: Constipation Stop: 05/07/23 20:19 Menthol (Cough Drop (Sugar Free) Andrez 24 Andrez/1 Box) 1 andrez BUCCAL 6XD PRN PRN Reason: Sore Throat Stop: 05/07/23 21:23 Oxycodone HCl (Oxycodone Hcl Ir 5 Mg Tab (Immediate Release)) 5 mg PO BID PRN PRN Reason: Pain Stop: 04/21/23 21:28 Pantoprazole Sodium (Pantoprazole 40 Mg Tab) 40 mg PO QAM KIKA; Protocol Stop: 05/08/23 08:59 Last Admin: 04/10/23 09:36 Dose: 40 mg Risperidone (Risperidone 0.5 Mg Tablet) 0.25 mg PO BID KIK[facility] Stop: 05/08/23 08:59 Last Admin: 04/10/23 09:38 Dose: 0.25 mg Sodium Chloride (Sodium Chloride 0.65% Na Soln 45 Ml ([place])) 1 - 2 sprays NA PRN PRN PRN Reason: Nasal Dryness/Congestion Stop: 05/07/23 20:19 Spironolactone (Spironolactone 25 Mg Tab) 50 mg PO BIDM KIK[facility] Stop: 05/08/23 17:44 Last Admin: 04/10/23 09:35 Dose: 50 mg Mental Health & Subst Abuse Tx Psychiatrist Name of Psychiatrist: Lizzy Monroy (REFERRAL FAXED) Psychiatrist's Psychiatric Appointment Comment: [address] [place] [address] Therapist Name of Therapist: Nydia Lira LCSW Therapist's Therapy Appointment Comment: [address], [place] [address] Journeyman Welder Name of Journeyman Welder: [employer] Phone Number for Journeyman Welder: [phone] Case Management Appointment Comment: Zoom link will be sent to [employer] email Post Discharge Appointments Primary Care Physician Name Of Family Doctor/PCP: Kleber Hoover Primary Care Provider Appointment Comment: [address] [place] [address] (6) Rheumatoid arthritis Rheumatoid arthritis location: unspecified site Rheumatoid factor presence: unspecified presence Qualified Code(s): M06.9 - Rheumatoid arthritis, unspecified
[2023-04-10 16:10] LABS: Folate (Folic Acid),Ser orPlas 12.66 ng/ml (>5.38)
[2023-04-10] MEDS: ACETAMINOPHEN 325 MG TAB PO PRN (16:19)
[2023-04-10] MEDS ORDERED: lamoTRIgine 100 MG TAB PO SCH (21:00)
[2023-04-11] MEDS: GABAPENTIN 400 MG CAP PO SCH ×2 (06:22→14:14)
[2023-04-11] MEDS: HYDROcodone/HOMATROPINE SYRUP 5MG/1.5MG 5ML UDP PO PRN ×3 (07:38→18:36)
[2023-04-11] MEDS: SPIRONOLACTONE 25 MG TAB PO SCH ×2 (09:15→17:16)
[2023-04-11] MEDS: risperiDONE 0.5 MG TABLET PO SCH (09:17)
[2023-04-11] MEDS: PANTOprazole 40 MG TAB PO SCH (09:17)
[2023-04-11] MEDS: guaiFENesin 600 MG TABCR PO SCH (09:17)
[2023-04-11] MEDS: estradioL 1 MG TAB PO SCH (09:17)
[2023-04-11] MEDS: FINASTERIDE 5 MG TAB PO SCH (09:17)
[2023-04-11] MEDS: BENZONATATE 100 MG CAPSULE PO SCH ×2 (09:17→14:14)
[2023-04-11] MEDS: BACITRACIN OINT 14 GM TUBE EXT SCH (09:26)
--- NOTE | 2023-04-11 12:55 | Psychiatric Progress Note ---
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 She was started on risperidone and lamictal and so far has felt this is helping with mood symptoms and has not experienced any symptoms of psychosis. Suicide notes, which were part of the medical chart, suggest possible component of cluster B traits/interpersonal conflicts/externalization as well as unspecified trauma and stressor disorder, alcohol use and gender dysphoria as additional driving factors leading to suicide attempt and current psychiatric presentation. MNPR-gender diverse 04/11/2023: Pt reports onset earlier today of pharyngodynia, dysphagia, dysphonia that have worsened rapidly. Has been sucking on ice chips in order to stay hydrated and because the cold helps with the pain. No sialorrhea, Current temperature 37.0C. Will consult hospitalist service. Reports gradual improvement in mood, continues to report no psychotic symptoms. Reports tolerating increase of lamotrigine from 50 mg to 100 mg daily with no attributed adverse effect. "Not very suicidal". 04/10/2023: When asked how she was doing and how she'd ended up admitted here, pt gives a very overinclusive, circumstantial report of various life stressors without ever mentioning having overdosed or having been on a ventilator. Clearly does recall this, as evidenced by referring to it as an explanation for cough. Denies any psychotic symptoms in contrast to May admission when prominent vermiculation was reported. Endorses depressed mood only. Reviewed current medication, including lamotrigine that has never been increased above 50 mg. Pt agrees to increase to 100 mg. 04/09/2023: Discussed possibility of a diagnosis such as autism spectrum disorder and PTSD possibly better fitting her experiences/symptoms over time compared with schizoaffective disorder. Continues to tolerate current medications well. Ongoing weakness, sore throat, improving cough related to extended ICU admission and intubation. (1) Schizoaffective disorder, bipolar type: (2) Suicide attempt: (3) Trauma and stressor-related disorder: (4) Gender dysphoria: (5) Rheumatoid arthritis: (6) Sciatic leg pain: (7) Sore throat: Plan 04/11/2023: * continue lamotrigine 100 mg daily - increased 04/10/2023 from prior to admission dose of 50 mg daily * continue risperidone 0.25 mg BID - prior to admission medication * consult hospitalist service re: pharyngodynia 04/10/2023: * increase lamotrigine to 100 mg daily - increased from prior to admission dose of 50 mg daily * continue risperidone 0.25 mg BID 04/09/2023: Continue current medications and tx plan. 04/08/2023: The patient was admitted to the [facility] ([facility]) on q15 min checks (behavioral with suicide precautions) for safety. The patient will participate in group, recreational, and milieu therapies and will be offered additional individual and family sessions as clinically appropriate. * Continue lamictal 50mg daily * Continue risperidone 0.25mg BID * Restarted hormone replacement therapy medications * Will continue cough suppressant medications and pain medications for now as started by medical team to help with resolution of symptoms from recent intubation Inventory Assets Strengths: supportive relationships, willing to get treatment Needs: safety and stabilization, medication adjustment, additional coping skills, increased outpatient services Suicide Risk Level Suicide Risk Level: Moderate (q15 min suicide checks) (serious suicide attempt prior to admission but now reporting some improvement in mood, denies SI, more future-oriented and feels safe in the hospital, and agrees to let nursing/staff know should they develop plan, intent or feel unable to remain safe. 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 Chief Complaint "My throat really hurts". Review of Systems Sleep Information Total Hours of Sleep: 6.5 Meal Information Percent Meal Consumed - Breakfast: 100 Percent Meal Consumed - Lunch: 100 Percent Meal Consumed - Dinner: 100 Nutrition Comment: painful swallowing r/t recent intubation Subjective Subjective The patient was seen and assessed and interval progress reviewed in a multidisciplinary team meeting with the treatment team. For details, see the " Impression" section. Overall I spent a total of 48 minutes for this inpatient follow-up including review of chart records, review of test results, direct evaluation of the patient [id number], counseling the patient, reconciling and ordering medication, medication education with the patient, risk assessment, discussion during interdisciplinary treatment rounds, and documentation in the electronic health record. Physical Exam Psychiatric Orientation: alert and oriented x 3 Apperance: appropriately dressed and appropriately groomed Eye Contact: good eye contact Motor Behavior: + abnormal motor movements (rocking at times) Speech: normal rate/rhythm/volume of speech Affect: + anxious affect, + flat affect and + constricted affect Mood: + anxious mood; no depressed mood Thought Process: goal directed thought process and + circumstantial thought process Thought Content: reality based without delusions Suicidal Thoughts: denies suicidal plan and denies suicidal intent; + reports suicidal thoughts (none currently but s/p serious attempt) Homicidal Thoughts: denies homicidal thoughts Hallucinations: + visual hallucinations (intermittent visual perceptual changes); no auditory hallucinations Cognition: recent memory grossly intact, remote memory grossly intact, attention grossly intact and language grossly intact Estimated Intelligence: consistent with education level Insight: + limited insight Judgment: + limited judgement Vital Signs (Past 24 Hours) Last Vital Signs Temp 37 C 04/11/23 06:39 Pulse 98 H 04/11/23 06:40 Resp 16 04/11/23 06:39 BP 120/81 04/11/23 06:40 Pulse Ox 95 04/09/23 06:00 O2 Del Method Room Air 04/09/23 06:00 Results & Data ([facility]) Laboratory Results Laboratory Results - last 24 hr 04/10/23 15:06 Vitamin B12 447 25-OH Vitamin D Total 20.4 L Folate 12.66 Current Inpatient Medications Current Inpatient Medications: Current Inpatient Medications Acetaminophen (Acetaminophen 325 Mg Tab) 650 mg PO Q4H PRN PRN Reason: Headache or Minor Fever Stop: 05/07/23 20:19 Last Admin: 04/10/23 16:19 Dose: 650 mg Al Hydrox/Mg Hydrox/Simethicone (Aluminum/Magnesium Susp 30 Ml Udc) 30 ml PO Q4H PRN PRN Reason: GI Upset Stop: 05/07/23 20:19 Bacitracin (Bacitracin Oint 14 Gm Tube) 1 appln EXT BID KIKA Stop: 05/08/23 08:59 Last Admin: 04/11/23 09:26 Dose: Not Given Benzocaine (Benzocaine 20% (Orajel) 11.9 Gm Tube) 1 appln MT Q6H PRN PRN Reason: mouth pain Stop: 05/07/23 21:23 Benzonatate (Benzonatate 100 Mg Capsule) 100 mg PO TID [facility] Stop: 05/08/23 08:59 Last Admin: 04/11/23 09:17 Dose: 100 mg Bismuth Subsalicylate (Bismuth Subsalicylate Liqd 236 Ml) 15 ml PO PRN PRN PRN Reason: Loose Stool Stop: 05/07/23 20:19 Estradiol (Estradiol 1 Mg Tab) 2 mg PO BID KIKA Stop: 05/08/23 20:59 Last Admin: 04/11/23 09:17 Dose: 2 mg Finasteride (Finasteride 5 Mg Tab) 5 mg PO QAM [facility] Stop: 05/09/23 08:59 Last Admin: 04/11/23 09:17 Dose: 5 mg Gabapentin (Gabapentin 400 Mg Cap) 400 mg PO [id number] [facility] Stop: 05/08/23 06:59 Last Admin: 04/11/23 06:22 Dose: 400 mg Guaifenesin (Guaifenesin 600 Mg Tabcr) 600 mg PO Q12 KIKA Stop: 05/08/23 08:59 Last Admin: 04/11/23 09:17 Dose: 600 mg Hydrocodone Bit/Homatropine Methylb (Hydrocodone/Homatropine Syrup 5mg/1.5mg 5ml Udp) 5 ml PO AC PRN PRN Reason: cough Stop: 04/21/23 21:18 Last Admin: 04/11/23 07:38 Dose: 5 ml Hydroxyzine HCl (Hydroxyzine Hcl 25 Mg Tab) 50 mg PO HSZ PRN PRN Reason: Insomnia Stop: 05/07/23 20:19 Last Admin: 04/10/23 22:41 Dose: 50 mg Hydroxyzine HCl (Hydroxyzine Hcl 25 Mg Tab) 25 mg PO Q4H PRN PRN Reason: Anxiety Stop: 05/07/23 20:19 Lamotrigine (Lamotrigine 100 Mg Tab) 100 mg PO QPM [facility] Stop: 05/10/23 20:59 Last Admin: 04/10/23 20:13 Dose: 100 mg Magnesium Hydroxide (Magnesium Hydroxide Susp 30 Ml Udc) 30 ml PO DAILY PRN PRN Reason: Constipation Stop: 05/07/23 20:19 Menthol (Cough Drop (Sugar Free) Andrez 24 Andrez/1 Box) 1 andrez BUCCAL 6XD PRN PRN Reason: Sore Throat Stop: 05/07/23 21:23 Oxycodone HCl (Oxycodone Hcl Ir 5 Mg Tab (Immediate Release)) 5 mg PO BID PRN PRN Reason: Pain Stop: 04/21/23 21:28 Pantoprazole Sodium (Pantoprazole 40 Mg Tab) 40 mg PO QAM KIKA; Protocol Stop: 05/08/23 08:59 Last Admin: 04/11/23 09:17 Dose: 40 mg Risperidone (Risperidone 0.5 Mg Tablet) 0.25 mg PO BID K[facility] Stop: 05/08/23 08:59 Last Admin: 04/11/23 09:17 Dose: 0.25 mg Sodium Chloride (Sodium Chloride 0.65% Na Soln 45 Ml ([place])) 1 - 2 sprays NA PRN PRN PRN Reason: Nasal Dryness/Congestion Stop: 05/07/23 20:19 Spironolactone (Spironolactone 25 Mg Tab) 50 mg PO BIDM KIKA Stop: 05/08/23 17:44 Last Admin: 04/11/23 09:15 Dose: 50 mg Mental Health & Subst Abuse Tx Psychiatrist Name of Psychiatrist: Lizzy Monroy (REFERRAL FAXED) Psychiatrist's Psychiatric Appointment Comment: [address] [place] [address] Therapist Name of Therapist: Nydia Lira LCSW Therapist's Therapy Appointment Comment: [address], [place] [address] Review Analyst Name of Review Analyst: [employer] Phone Number for Review Analyst: [phone] Case Management Appointment Comment: Zoom link will be sent to [employer] email Post Discharge Appointments Primary Care Physician Name Of Family Doctor/PCP: Dr. Waters [facility] Primary Care Provider Appointment Comment: [address] [place] [address] (5) Rheumatoid arthritis Rheumatoid arthritis location: unspecified site Rheumatoid factor presence: unspecified presence Qualified Code(s): M06.9 - Rheumatoid arthritis, unspecified
--- NOTE | 2023-04-11 13:29 | Hospitalist Consultation ---
Date of Consultation April 11, 2023 Assessment & Plan (1) Sore throat: (2) Dysphonia: This is a 27 yo transgendered male who identifies as female and goes by Ethel, Medical history significant for GERD, ANUEL CPAP intolerance, seronegative RA, schizoaffective disorder, anxiety/mood disorder, ADD, anosmia secondary to congenital nasal septal deviation status post surgery who initially presented to the [facility] for suicide attempt via ingestion of ativan and alcohol with acute metabolic encephalopathy due to drug overdose, alcohol and anoxia, acute respiratory failure with hypoxia and hypercarbia, and aspiration pneumonia. Pt was admitted to the ICU after intubation on 03/25, had OGT tube placed for trickle feeding, and had suction to the hypopharynx due to chunks of food and pills noted with aspiration. Pt underwent flexible bronchoscopy with bronchial washing from right lung on 03/29. Extubated on 03/31. A course of IV unasyn x 7 days completed during course. Galactomannan Ag positive was noted, however Infectious disease said no treatment and monitored the patient. Pt had Left jugular venous access from ICU which is noted on exam, healing. Pt had multiple electrolyte abnormalities which were repleted as needed. Pt also with hx of peptic ulcer disease and had an episode of bloody emesis which was treated with IV protonix and Gastroenterology saw the patient. Hgb was stable and there was not an indication for endoscopic evaluation. Pt was seen by speech therapy on 04/04. Patient had complaints of coughing for 4 months at that time, but has been worse s/p extubation, and with complaints of dysphonia. At that time recommendation was made by speech for ENT consultation to r/o damage to vocal fold and larynx via direct laryngoscopy as an outpatient. Pt also underwent a Barium swallow evaluation as had UGI bleed and reflux, which were suspicious for possible esophageal dysfunction. Results demonstrated normal oropharyngeal swallowing mechanics, does cough with swallowing, and was not correlated to aspiration. Pt was discharge to psychiatric service on 04/07. 3-4 days worsening sore throat, dysphagia 1 day worsening dysphonia - S/p intubation on 03/25 1 extubation on 03/31, s/p suctioning in hypopharynx for aspiration, OGT placed for trickle feeds which in ICU. Concern for trauma to larynx. - Symptoms including dysphonia, sided neck lymphadenopathy, tenderness with palpation left neck worsening over the past 3 to 4 days - Concern for possible postextubation tonsillar abscess versus infectious symptoms, will obtain a bio fire nasal swab, group A strep swab of the throat - Check CT soft tissue neck with contrast to evaluate for abscess - Noted ENT was recommended by speech therapy on 04/04 and 04/05, as an outpatient, ENT not available in house- discussed with pulmonology here at [facility] who agrees with management as above, would be suspicious with traumatic intubation. - Will need ENT follow up on discharge (3) Schizoaffective disorder, bipolar type: - Psychiatric medications as per psych team, - History of suicidal ideation and attempt on 03/25, none presently, continue to recommend follow-up with group therapy, counseling, and will require outpatient follow-up with psych - Appears pt is off Calypta, trazodone and ativan - Lamictal has been increased to 100 mg QPM, gabapentin increased to 400 mg BID from 200 mg BID, - On estradiol 2 mg BID and finasteride 5 mg daily for transgender identity - Cont Risperdal 0.25 mg BID (4) Wound of left foot: -Patient currently wearing a left hard boot status post ICU stay, reported by nursing as a blood blister, patient is ambulating with the use of a cane for balance assistance -Notes generalized deconditioning since ICU stay, encourage ambulation, PT and OT and to advance as tolerated - Pt does not appear volume overloaded - on spironolactone 50 mg BID and appears this was Rxd prior to admission in the ICU, monitor (5) Rheumatoid arthritis: - Hx of such - would recommend continues with rheumatology and/or PCP on discharge - Hx of being on Humira inj - unknown when last taken DVT ppx: ambulatory CODE: FULL Thank you for involving us in the care of Ethel. Please do not hesitate to call with questions or concerns. At this time medicine service will follow along. Supervising Physician Co-Signing Physician Notes I have seen and examined the patient and have discussed the case with the provider above. I agree with the assessment and plan as stated. 27 yo patient with SI, recently intubated as noted above. Transferred to the inpatient [facility] a few days ago and now is losing his voice with worsened sore throat. Tested positive for rhinovirus. CT scan neck revealed no abscess or soft tissue gas within the neck. There was possible thickening of the aryepiglottic folds and mildly enlarged tonsils. On exam he was oxygenating well on room air and in NAD. There was no stridor or increased respiratory effort. She was able to whisper but was overall hypophonic. She is morbidly obese with otherwise clear lungs to auscultation. Per U infection control rules, he will need to be transferred to the medical amato for a period of isolation. See H&P same day. DO Rickie History of Present Illness Reason for Consultation: Dysphonia, dysphagia Requesting Physician: Dr. Arroyo Attending Physician: Bronwyn Deleon MD History of Present Illness This is a 27 yo transgendered male who identifies as female and goes by Ethel, Medical history significant for GERD, ANUEL CPAP intolerance, seronegative RA, schizoaffective disorder, anxiety/mood disorder, ADD, anosmia secondary to congenital nasal septal deviation status post surgery who initially presented to the [facility] for suicide attempt via ingestion of ativan and alcohol with acute metabolic encephalopathy due to drug overdose, alcohol and anoxia, acute respiratory failure with hypoxia and hypercarbia, and aspiration pneumonia. Pt was admitted to the ICU after intubation on 03/25, had OGT tube placed for trickle feeding, and had suction to the hypopharynx due to chunks of food and pills noted with aspiration. Pt underwent flexible bronchoscopy with bronchial washing from right lung on 03/29. Extubated on 03/31. A course of IV unasyn x 7 days completed during course. Galactomannan Ag positive was noted, however Infectious disease said no treatment and monitored the patient. Pt had multiple electrolyte abnormalities which were repleted as needed. Pt also with hx of peptic ulcer disease and had an episode of bloody emesis which was treated with IV protonix and Gastroenterology saw the patient. Hgb was stable and there was not an indication for endoscopic evaluation. Pt was seen by speech therapy on 04/04. Patient had complaints of coughing for 4 months at that time, but has been worse s/p extubation, and with complaints of dysphonia. At that time recommendation was made by speech for ENT consultation to r/o damage to vocal fold and larynx via direct laryngoscopy as an outpatient. Pt also underwent a Barium swallow evaluation as had UGI bleed and reflux, which were suspicious for possible esophageal dysfunction. Results demonstrated normal oropharyngeal swallowing mechanics, does cough with swallowing, and was not correlated to aspiration. Pt was discharge to psychiatric service on 04/07. Pt had been doing well since that time until 3-4 days ago where she has progressively had worsening sore throat pain, and today has worsening hoarseness of voice and during my visit is only able to whisper. Pt has been afebrile. Pt notes has been difficult to swallow food due to pain but is tolerating liquids without any difficulty. Today was able to eat small bits of chicken and oatmeal raisin cookie at lunchtime but only had ice chips at breakfast due to pain. Pt has hydrocodeine syrup ordered and has been taking this about 1 hour before meals to help with pain. It is also prn cough, which has been present for several months, but worse s/p extubation. Admits to having some swelling of lymph nodes under the chin and down the left neck which is tender to touch. Patient admits to having seasonal allergies but typically has eye irritation, puffiness and itchiness which is not present today. Reports history of ear infections as a child, none as an adult, can recall 2 times of having ear tubes placed visits child as well. Denies any nasal drip, admits to slightly runny nose today, no sinus tenderness or pressure. Patient reports that it is difficult to take breaths through mouth at times, but denies any specific shortness of breath while sitting. Denies any fevers, sweats or chills. Allergies Allergy/AdvReac Type Severity Reaction Status Date / Time azithromycin [From Zithromax] Allergy Intermediate Rash Verified 03/24/23 23:31 Home Medications Medication Instructions Recorded Confirmed Type adalimumab 40 mg/0.4 mL 40 mg subcut DIRECTED 03/11/23 04/11/23 History subcutaneous pen kit (Humira(CF) Pen) finasteride 5 mg tablet 5 mg PO DAILY 03/11/23 04/11/23 History gabapentin 100 mg capsule 400 mg PO BID 03/11/23 04/11/23 History lamotrigine 25 mg tablet (Lamictal) 100 mg PO QPM 03/11/23 04/11/23 History spironolactone 50 mg tablet 50 mg PO BID 03/11/23 04/11/23 History estradiol 2 mg tablet 2 mg PO BID 03/24/23 04/11/23 History hydrocodone-homatropine 5 mg-1.5 5 ml PO Q6H PRN cough #473 mL 04/07/23 04/11/23 Rx mg/5 mL oral syrup (Hydromet) bacitracin 500 unit/gram topical 1 applic EXT BID 14 days #1 g 04/11/23 Rx ointment benzocaine 15 mg-menthol 3.6 mg 1 lino buccal 6XD PRN sore throat 04/11/23 Rx lozenges (Cepacol Sore Throat 30 days #16 ea (benzocaine-menthol)) benzocaine 20 % mucosal gel 1 applic MT Q6H PRN mouth 04/11/23 Rx (HurriCaine) irritation 30 days #1 g benzonatate 100 mg capsule 100 mg PO TID 30 days #90 caps 04/11/23 Rx guaifenesin 600 mg tablet, 600 mg PO Q12H 04/11/23 04/11/23 History extended release 12 hr (Mucinex) hydroxyzine HCl 25 mg tablet 25 mg PO Q4H PRN anxiety 30 days 04/11/23 Rx #30 tabs hydroxyzine HCl 25 mg tablet 50 mg (2 x 25 mg) PO HSZ PRN 04/11/23 Rx insomnia 30 days #30 tabs pantoprazole 40 mg tablet,delayed 40 mg PO QAM 30 days #30 tabs 04/11/23 Rx release risperidone 0.5 mg tablet 0.25 mg (1/2 x 0.5 mg) PO BID 30 04/11/23 Rx days #30 tabs Patient History Medical History (Updated 04/11/23 @ 17:30 by Maya Delgado PA-C) Sore throat Schizoaffective disorder, bipolar type Encounter for pre-operative examination Vermiculation Suicidal ideations Rheumatoid arthritis seronegative Surgical History (Updated 04/11/23 @ 00:10 by Ivan Huffman) No significant past surgical history Family History Other Back pain Social History Smoking Status: Never smoker Second Hand Exposure: No; Do You Dip or Chew Tobacco: No; Preferred Language: Tanzanian Communication Ability: Effective Communication Ability Comment: unable to assess currently intubated [employer] Required: No Beliefs That Will Affect Care: None marital status: Single Current Living Situation: Alone Current Living Situation Comment: college student current occupational status: student Feels Safe at Home: Yes Gender Identity: Transgender Female Assistive Devices: Brace/Splint/Immobilizer, Glasses and Walker Review of Systems Review of Systems: Constitutional: No fever, sweats or chills Eyes: No diplopia, no worsening or blurred vision ENT: normal hearing, + trouble swallowing hard foods, tolerating liquids without difficulty Respiratory: No cough, sputum, dyspnea at rest or on exertion Cardiovascular: No chest pain, tightness or palpitations Abdomen: No pain, nausea, vomiting, diarrhea or constipation Musculoskeletal: No joint pain, calf pain, swelling Neurologic: + Feels generalized weakness in the upper extremities which is progressively improving status post ICU stay, no numbness/tingling, or balance problems, + using cane to ambulate due to wearing a left foot boot Psychiatric: + Anxiety and mood disorder on medication Skin: No rash or itch Physical Exam Physical Exam: General: awake, alert, no apparent distress, + obese with BMI of 35.4, white male, identifies as female Head: Normocephalic, atraumatic ENT: PERRL, EOMI, no pharyngeal erythema or exudate, left tonsillar edema, + submandibular lymph node edema bilaterally, left posterior cervical chain lymphadenopathy with tenderness to palpation, mucous membranes moist, left jugular region without ecchymyosis but has pinpoint area of scabbing, healing. Chest: Clear to auscultation, on room air, no adventitious breath sounds Cardiac: Regular rate and rhythm, no murmur, no JVD, normal peripheral pulses, good capillary refill Abdominal: NABS x 4 quadrants, soft, nondistended, nontender to palpation, no re bound or guarding Extremities: Normal inspection, no peripheral edema or erythema, calfs nontender to palpation, + left hard boot Psych: Normal mood and affect Neuro: AAO x 3, strength intact bilaterally and rated 5/5, no motor deficits, speech is clear, no peripheral sensory deficits Results & Data Results & Data Vital Signs (Past 12 Hours) Vital Signs Temp Pulse Resp BP 04/11/23 06:40 98 H 120/81 04/11/23 06:39 37 C 80 16 116/78 (5) Rheumatoid arthritis Rheumatoid arthritis location: unspecified site Rheumatoid factor presence: unspecified presence Qualified Code(s): M06.9 - Rheumatoid arthritis, unspecified
[2023-04-11] MEDS ORDERED: OPTIRAY 320 500ml IV ONE (14:55)
--- NOTE | 2023-04-11 15:20 | CT Scan Report ---
CT OF THE NECK WITH IV CONTRAST CLINICAL HISTORY: S/p extubation on 03/31, eval for trauma, abscess COMPARISON STUDY: Chest CT March 30, [address] March 24, 2023 TECHNIQUE: Following IV administration of 93 mL of Optiray, helical axial images of the neck were ob tained. Sagittal and coronal reconstructions were viewed. Automated exposure control was utilized f or the study. A dose lowering technique was utilized adhering to the principles of ALARA. FINDINGS: Visualized portions of the intracranial contents are unremarkable. No significant mastoid fluid is present. Visualized portions of the sinuses are clear. Orbits are unremarkable. There is no prevertebral edema. The epiglottis is normal. Parotid and submandibular glands are unremarkable. Ivory r vasculature of the neck is patent. There is no fluid collection within the neck. There may be mild thickening of the aryepiglottic folds. No soft tissue gas within the neck is noted. Thickening and conroy bcutaneous stranding of the chin is present. No acute fractures are identified within the visualized skeletal structures. Mild airspace opacities within the right upper lobe has significantly improved s toshia chest CT of March 30, 2023. Mildly enlarged. There is no peritonsillar abscess. Visualized por tions of the trachea are unremarkable. IMPRESSION: 1. Possible mild thickening of the aryepiglottic folds, a nonspecific finding. No soft tissue gas wit hin neck. No abscess within the neck. No prevertebral edema. 2. Mild right upper lobe airspace opacities, significantly improved since chest CT of March 30 3. 3. Mildly enlarged tonsils. No peritonsillar abscess. No associated inflammation. ACT 112: Negative or not required by law. Electronically signed by: Cuate You M.D. 04/11/2023 3:19 PM
[2023-04-11 16:24] LABS: Adenovirus PCR Not Detected (NotDetected); Bordetella parapertussis PCR Not Detected (NotDetected); Bordetella pertussis PCR Not Detected (NotDetected); Chlamydia pneumoniae PCR Not Detected (NotDetected); Coronavirus 229E PCR Not Detected (NotDetected); Coronavirus CoV-2 (COVID19)PCR Not Detected (NotDetected); Coronavirus HKU1 PCR Not Detected (NotDetected); Coronavirus NL63 PCR Not Detected (NotDetected); Coronavirus OC43PCR Not Detected (NotDetected); Human Metapneumovirus PCR Not Detected (NotDetected); Influenza A PCR Not Detected (NotDetected); Influenza B PCR Not Detected (NotDetected); Mycoplasma pneumoniae PCR Not Detected (NotDetected); Parainfluenza Virus 1 PCR Not Detected (NotDetected); Parainfluenza Virus 2 PCR Not Detected (NotDetected); Parainfluenza Virus 3 PCR Not Detected (NotDetected); Parainfluenza Virus 4 PCR Not Detected (NotDetected); Respiratory Syncytial VirusPCR Not Detected (NotDetected)
[2023-04-11 16:34] LABS: Rhinovirus/Enterovirus PCR DETECTED (NotDetected)
--- NOTE | 2023-04-11 17:35 | History & Physical Report ---
Date of Service April 11, 2023 Assessment & Plan (1) Rhinovirus infection: (2) Dysphonia: (3) Sore throat: (4) Schizoaffective disorder, bipolar type: (5) Rheumatoid arthritis: (6) Wound of left foot: Plan: This is a 27 yo transgendered male who identifies as female and goes by [place], Medical history significant for GERD, ANUEL CPAP intolerance, seronegative RA, schizoaffective disorder, anxiety/mood disorder, ADD, anosmia secondary to c ongenital nasal septal deviation status post surgery who initially presented to the [facility] for suicide attempt via ingestion of ativan and alcohol with acute metabolic encephalopathy due to drug overdose, alcohol and anoxia, acute respiratory failure with hypoxia and hypercarbia, and aspiration pneumonia. Pt was admitted to the ICU after intubation on 03/25, had OGT tube placed for trickle feeding, and had suction to the hypopharynx due to chunks of food and pills noted with aspiration. Pt underwent flexible bronchoscopy with bronchial washing from right lung on 03/29. Extubated on 03/31. A course of IV unasyn x 7 days completed during course. Galactomannan Ag positive was noted, however Infectious disease said no treatment and monitored the patient. Pt had Left jugular venous access from ICU which is noted on exam, healing. Pt had multiple electrolyte abnormalities which were repleted as needed. Pt also with hx of peptic ulcer disease and had an episode of bloody emesis which was treated with IV protonix and Gastroenterology saw the patient. Hgb was stable and there was not an indication for endoscopic evaluation. Pt was seen by speech therapy on 04/04. Patient had complaints of coughing for 4 months at that time, but has been worse s/p extubation, and with complaints of dysphonia. At that time recommendation was made by speech for ENT consultation to r/o damage to vocal fold and larynx via direct laryngoscopy as an outpatient. Pt also underwent a Barium swallow evaluation as had UGI bleed and reflux, which were suspicious for possible esophageal dysfunction. Results demonstrated normal oropharyngeal swallowing mechanics, does cough with swallowing, and was not correlated to aspiration. Pt was discharge to psychiatric service on 04/07. 3-4 days worsening sore throat, dysphagia 1 day worsening dysphonia Sore throat Dysphonia +Rhinovirus Positive - S/p intubation on 03/25 1 extubation on 03/31, s/p suctioning in hypopharynx for aspiration, OGT placed for trickle feeds which in ICU. Concern for trauma to larynx. - Symptoms including dysphonia, sided neck lymphadenopathy, tenderness with palpation left neck worsening over the past 3 to 4 days - Concern for possible postextubation tonsillar abscess versus infectious symptoms, will obtain a bio fire nasal swab, group A strep swab of the throat - Check CT soft tissue neck with contrast to evaluate for abscess - Noted ENT was recommended by speech therapy on 04/04 and 04/05, as an outpatient, ENT not available in house- discussed with pulmonology here at [facility] who agrees with management as above, would be suspicious with traumatic intubation. - Will need ENT follow up on discharge Schizoaffective disorder, Bipolar Type Hx of suicide attempt - Psychiatric medications as per psych team - 1:1 ordered, suicide precautions - History of suicidal ideation and attempt on 03/25, none presently, continue to recommend follow-up with group therapy, counseling, and will require outpatient follow-up with psych - Appears pt is off Calypta, trazodone and ativan - Lamictal has been increased to 100 mg QPM, gabapentin increased to 400 mg BID from 200 mg BID, - On estradiol 2 mg BID and finasteride 5 mg daily for transgender identity - Cont Risperdal 0.25 mg BID Wound of Left Foot -Patient currently wearing a left hard boot status post ICU stay, reported by nursing as a blood blister, patient is ambulating with the use of a cane for balance assistance -Notes generalized deconditioning since ICU stay, encourage ambulation, PT and OT and to advance as tolerated - Pt does not appear volume overloaded - on spironolactone 50 mg BID and appears this was Rxd prior to admission in the ICU, monitor Rheumatoid Arthritis - Hx of such - would recommend continues with rheumatology and/or PCP on discharge - Hx of being on Humira inj - unknown when last taken Morbid Obesity - BMI 35.4, diet and exercise should be encouraged DVT ppx: ambulatory CODE: FULL Lines: 1 PIV FEN/GI: Regular diet Dispo: From home, will need SM to assist with d/c planning Admission and Anticipated Discharge Date Admission Date: April 07, 2023 History of Present Illness Primary Care Provider: Renata Waters MD This is a 27 yo transgendered male who identifies as female and prefers the name Ethel. Medical history significant for GERD, ANUEL CPAP intolerance, seronegative RA, schizoaffective disorder, anxiety/mood disorder, ADD, anosmia secondary to congenital nasal septal deviation status post surgery who initially presented to the [facility] for suicide attempt via ingestion of ativan and alcohol with acute metabolic encephalopathy due to drug overdose, alcohol and anoxia, acute respiratory failure with hypoxia and hypercarbia, and aspiration pneumonia. Pt was admitted to the ICU after intubation on 03/25, had OGT tube placed for trickle feeding, and had suction to the hypopharynx due to chunks of food and pills noted with aspiration. Pt underwent flexible bronchoscopy with bronchial washing from right lung on 03/29. Extubated on 03/31. A course of IV unasyn x 7 days completed during course. Galactomannan Ag positive was noted, however Infectious disease said no treatment and monitored the patient. Pt had multiple electrolyte abnormalities which were repleted as needed. Pt also with hx of peptic ulcer disease and had an episode of bloody emesis which was treated with IV protonix and Gastroenterology saw the patient. Hgb was stable and there was not an indication for endoscopic evaluation. Pt was seen by speech therapy on 04/04. Patient had complaints of coughing for 4 months at that time, but has been worse s/p extubation, and with complaints of dysphonia. At that time recommendation was made by speech for ENT consultation to r/o damage to vocal fold and larynx via direct laryngoscopy as an outpatient. Pt also underwent a Barium swallow evaluation as had UGI bleed and reflux, which were suspicious for possible esophageal dysfunction. Results demonstrated normal oropharyngeal swallowing mechanics, does cough with swallowing, and was not correlated to aspi ration. Pt was discharge to psychiatric service on 04/07. Pt had been doing well since that time until 3-4 days ago where she has progressively had worsening sore throat pain, and today has worsening hoarseness of voice and during my visit is only able to whisper. Pt has been afebrile. Pt notes has been difficult to swallow food due to pain but is tolerating liquids without any difficulty. Today was able to eat small bits of chicken and oatmeal raisin cookie at lunchtime but only had ice chips at breakfast due to pain. Pt has hydrocodeine syrup ordered and has been taking this about 1 hour before meals to help with pain. It is also prn cough, which has been present for several months, but worse s/p extubation. Admits to having some swelling of lymph nodes under the chin and down the left neck which is tender to touch. Patient admits to having seasonal allergies but typically has eye irritation, puffiness and itchiness which is not present today. Reports history of ear infections as a child, none as an adult, can recall 2 times of having ear tubes placed visits child as well. Denies any nasal drip, admits to slightly runny nose today, no sinus tenderness or pressure. Patient reports that it is difficult to take breaths through mouth at times, but denies any specific shortness of breath while sitting. Denies any fevers, sweats or chills. Upon Biofire results being Rhinovirus positive on 04/11, pt required transfer to the medical floor as is not able to stay on the psychiatric unit due to droplet precautions. Allergies Allergy/AdvReac Type Severity Reaction Status Date / Time azithromycin [From Zithromax] Allergy Intermediate Rash Verified 03/24/23 23:31 Home Medications Medication Instructions Recorded Confirmed Type adalimumab 40 mg/0.4 mL 40 mg subcut DIRECTED 03/11/23 04/11/23 History subcutaneous pen kit (Humira(CF) Pen) finasteride 5 mg tablet 5 mg PO DAILY 03/11/23 04/11/23 History gabapentin 100 mg capsule 400 mg PO BID 03/11/23 04/11/23 History lamotrigine 25 mg tablet (Lamictal) 100 mg PO QPM 03/11/23 04/11/23 History spironolactone 50 mg tablet 50 mg PO BID 03/11/23 04/11/23 History estradiol 2 mg tablet 2 mg PO BID 03/24/23 04/11/23 History omeprazole 40 mg capsule,delayed 40 mg PO QAM 03/24/23 04/11/23 History release hydrocodone-homatropine 5 mg-1.5 5 ml PO Q6H PRN cough #473 mL 04/07/23 04/11/23 Rx mg/5 mL oral syrup (Hydromet) guaifenesin 600 mg tablet, 600 mg PO Q12H 04/11/23 04/11/23 History extended release 12 hr (Mucinex) Past Med/Surg History Medical History (Updated 04/11/23 @ 17:30 by Maya Delgado PA-C) Sore throat Schizoaffective disorder, bipolar type Encounter for pre-operative examination Vermiculation Suicidal ideations Rheumatoid arthritis seronegative Surgical History (Updated 04/11/23 @ 00:10 by Ivan Huffman) No significant past surgical history Family History Other Back pain Social History Smoking Status: Never smoker Second Hand Exposure: No; Do You Dip or Chew Tobacco: No; Preferred Language: Telugu Communication Ability: Effective Communication Ability Comment: unable to assess currently intubated Track Rider Required: No Beliefs That Will Affect Care: None marital status: Single Current Living Situation: Alone Current Living Situation Comment: college student current occupational status: student Feels Safe at Home: Yes Gender Identity: Transgender Female Assistive Devices: Brace/Splint/Immobilizer, Glasses and Walker Review of Systems Review of Systems: Constitutional: No fever, sweats or chills Eyes: No diplopia, no worsening or blurred vision ENT: normal hearing, + trouble swallowing hard foods, tolerating liquids without difficulty Respiratory: No cough, sputum, dyspnea at rest or on exertion Cardiovascular: No chest pain, tightness or palpitations Abdomen: No pain, nausea, vomiting, diarrhea or constipation Musculoskeletal: No joint pain, calf pain, swelling Neurologic: + Feels generalized weakness in the upper extremities which is progressively improving status post ICU stay, no numbness/tingling, or balance problems, + using cane to ambulate due to wearing a left foot boot Psychiatric: + Anxiety and mood disorder on medication Skin: No rash or itch Physical Exam Physical Exam: General: awake, alert, no apparent distress, + obese with BMI of 35.4, white male, identifies as female Head: Normocephalic, atraumatic ENT: PERRL, EOMI, no pharyngeal erythema or exudate, left tonsillar edema, + submandibular lymph node edema bilaterally, left posterior cervical chain lymphadenopathy with tenderness to palpation, mucous membranes moist, left jugular region without ecchymyosis but has pinpoint area of scabbing, healing. Chest: Clear to auscultation, on room air, no adventitious breath sounds Cardiac: Regular rate and rhythm, no murmur, no JVD, normal peripheral pulses, good capillary refill Abdominal: NABS x 4 quadrants, soft, nondistended, nontender to palpation, no rebound or guarding Extremities: Normal inspection, no peripheral edema or erythema, calfs nontender to palpation, + left hard boot Psych: Normal mood and affect Neuro: AAO x 3, strength intact bilaterally and rated 5/5, no motor deficits, speech is clear, no peripheral sensory deficits Results & Data Results & Data Vital Signs (Past 12 Hours) Vital Signs Temp Pulse Resp BP 04/11/23 13:18 36.4 C L 04/11/23 06:40 98 H 120/81 04/11/23 06:39 37 C 80 16 116/78 Laboratory Results 04/11/23 04/11/23 15:27 15:16 Adenovirus (PCR) Not Detected B. pertussis DNA (PCR) Not Detected B.parapertussis DNA PCR Not Detected C. pneumoniae DNA (PCR) Not Detected Coronavirus OC43 (PCR) Not Detected Coronavirus HKU1 (PCR) Not Detected Coronavirus 229E (PCR) Not Detected SARS-CoV-2 (PCR) Not Detected Coronavirus NL63 (PCR) Not Detected Human Metapneumovir PCR Not Detected Influenza Type A (PCR) Not Detected Influenza Type B (PCR) Not Detected M. pneumoniae (PCR) Not Detected Parainfluenza 1 (PCR) Not Detected Parainfluenza 2 (PCR) Not Detected Parainfluenza 3 (PCR) Not Detected Parainfluenza 4 (PCR) Not Detected RSV (PCR) Not Detected Entero/Rhino (PCR) DETECTED A* Group A Strep (PCR) NOT DETECTED Diagnostic Findings Soft Tissue Neck CT 04/11/23 13:58 CT OF THE NECK WITH IV CONTRAST CLINICAL HISTORY: S/p extubation on 03/31, eval for trauma, abscess COMPARISON STUDY: Chest CT March 30, [address] March 24, 2023 TECHNIQUE: Following IV administration of 93 mL of Optiray, helical axial images of the neck were obtained. Sagittal and coronal reconstructions were viewed. Automated exposure control was utilized for the study. A dose lowering technique was utilized adhering to the principles of ALARA. FINDINGS: Visualized portions of the intracranial contents are unremarkable. No significant mastoid fluid is present. Visualized portions of the sinuses are clear. Orbits are unremarkable. There is no prevertebral edema. The epiglottis is normal. Parotid and submandibular glands are unremarkable. Major vasculature of the neck is patent. There is no fluid collection within the neck. There may be mild thickening of the aryepiglottic folds. No soft tissue gas within the neck is noted. Thickening and subcutaneous stranding of the chin is present. No acute fractures are identified within the visualized skeletal structures. Mild airspace opacities within the right upper lobe has significantly improved since chest CT of March 30, 2023. Mildly enlarged. There is no peritonsillar abscess. Visualized portions of the trachea are unremarkable. IMPRESSION: 1. Possible mild thickening of the aryepiglottic folds, a nonspecific finding. No soft tissue gas within neck. No abscess within the neck. No prevertebral edema. 2. Mild right upper lobe airspace opacities, significantly improved since chest CT of March 30, 2023. 3. Mildly enlarged tonsils. No peritonsillar abscess. No associated inflammation. ACT 112: Negative or not required by law. Electronically signed by: Cuate You M.D. 04/11/2023 3:19 PM Code Status & VTE Plan Code Status Full code (5) Rheumatoid arthritis Rheumatoid arthritis location: unspecified site Rheumatoid factor presence: unspecified presence Qualified Code(s): M06.9 - Rheumatoid arthritis, unspecified
--- NOTE | 2023-04-11 18:24 | Discharge Summary ---
Date of Service April 11, 2023 History of Present Illness Ethel was admitted to the ICU and intubated for many days for a suicide attempt via overdose of unknown quantity of alcohol and lorazepam and subsequent medical admission for stabilization. She is now admitted psychiatrically following serious suicide for ongoing depression and gender dysphoria. Additional recent history from initial psychiatric consult by Dr. Porter on 04/01/2023: "Patient ingested 15 mg of Ativan with alcohol and aspirated. She was surprisingly clear and jovial during today's assessment. She stated that she wanted to be "done" with her parents but otherwise "it's a long story" and did not elaborate as otherwise still on oxygen/short of breath. States surprise to have woken up but has denied SI in the immediate hospital stay and states will agree to inpatient care when medically cleared (assuming no need for physical rehab). Parents were outside of the door and she repeatedly stated she wanted them to leave. She does not want information shared or released and refused to read a hand written note mother prepared before leaving. She denies hallucinations though describes some delirium after the ingestion, "it's like I have a memory but it must have been a hallucination." Reviewed with patient they are currently on Lamictal and Risperdal 0.25 mg po BID as per ICU consultation with Dr. Jose Celis at [facility]. Therapy has been with [facility]. past med trials of lurasidone, luvox, modafinil for ADHD, Ritalin, trazodone, Caplyta, Ativan. previous psych hospitalizations in [place]--4-5 in midteens. [facility] as above May 2022." As Ethel has recovered medically she has been followed on the medical service and has reported lessening of SI and feels her mood symptoms have been fairly stable with initiation of risperidone and lamictal which she is tolerating well so far. Her biggest stressors have been ongoing physical pain and some issues related to prolonged ICU stay and intubation including persistent cough, throat irritation, and bullous hemorrhagic dermatitis of left fourth and fifth toe which has increased her anxiety and lead to increased physical weakness. Additional stressors have been conflict with family, inability to get in touch with her roommate/access her cellphone which remains at the apartment and not being able to talk to a professor and friend who has historically been a very good support. She feels that prior to the suicide attempt the biggest problematic symptom she had been dealing with was worsening of flashbacks and PTSD symptoms. She reports no recent symptoms of psychosis, even when she stopped the Caplyta prior to admission and she had stopped her prior to admission modafinil and trazodone as these had not been helping. Physical Exam Psychiatric Orientation: alert and oriented x 3 Apperance: appropriately dressed and appropriately groomed Eye Contact: good eye contact Motor Behavior: + abnormal motor movements (rocking at times) Speech: normal rate/rhythm/volume of speech Affect: + anxious affect and + constricted affect Mood: + anxious mood; no depressed mood Thought Process: goal directed thought process and + circumstantial thought process Thought Content: reality based without delusions Suicidal Thoughts: denies suicidal plan and denies suicidal intent; + reports suicidal thoughts (none currently but s/p serious attempt) Homicidal Thoughts: denies homicidal thoughts Hallucinations: + visual hallucinations (intermittent visual perceptual changes); no auditory hallucinations Cognition: recent memory grossly intact, remote memory grossly intact, attention grossly intact and language grossly intact Estimated Intelligence: consistent with education level Insight: + limited insight Judgment: + limited judgement Vital Signs (Past 24 Hours) Last Vital Signs Temp 36.4 C L 04/11/23 17:32 Pulse 88 04/11/23 17:32 Resp 16 04/11/23 17:32 BP 120/81 04/11/23 17:32 Pulse Ox 95 04/11/23 17:32 O2 Del Method Room Air 04/09/23 06:00 Principal Diagnosis Schizoaffective Disorder, Bipolar Type Psychiatric Data See daily stay summary. In short, safety was maintained and the patient was cooperative with care. Medication changes included increase of lamotrigine and they tolerated this well. The patient developed a rhinovirus infection and by facility policy had to be transferred to the medical service for droplet isolation. Day of Discharge Assessment The patient has reported significant mood improvement over the past 2 days and is tolerating medication well. We intend to continue following her while on the medical service. If she is not psychiatrically ready for discharge when she no longer requires isolation we will transfer her back to the psychiatric service. Overall I spent a total of 114 minutes on the day of discharge including review of chart records, review of test results, direct evaluation of the patient [id number], counseling the patient, supportive psychotherapy using cognitive- behavioral tools including addressing cognitive distortionsreconciling and ordering medication, medication education with the patient, risk assessment, discussion during interdisciplinary treatment rounds and with the medical co nsultant, and documentation in the electronic health record. Transition of Care Transition Of Care Record: was reviewed with the patient Advance Directives Advance Directives Information Provided: Yes Advance Directives: No Mental Health Advance Directive: No Advance Directives on File: No Living Will: Yes Power of Cumulative Effects Analyst: Yes Advance Directives Reason:: Declines as Mental Health Visit. Suicide Risk Level Suicide Risk Level Comments: Suicide risk at discharge is deemed low as the patient is no longer requiring 24-hr monitoring, has a safety plan, and reports less suicidal ideation at discharge. She will not require suicide precautions on the medical service. Risk Factors Assessment : Yes Do You Have Access To A Gun?: No Health Problems: Yes Mental Health Diagnoses: Yes Substance Use Disorders: Yes Previous Attempt: Yes Previous Psychiatric Hospitalization: Yes Protective Factors Assessment Responsible for Young Children: No Stable Relationships: Yes Supportive Family: No Good Rapport with Provider: Yes Total Time Total Time Spent: Greater Than 30 Minutes Total Time Includes: Examination of the patient, Discharge Planning, Medication Reconciliation, Communication with other providers and As well as (documentation) Discharge Data Consultations 04/08/23 08:49 Consult Podiatry Routine 04/11/23 12:36 Consult Hospitalist Routine Lab Results 04/10/23 04/11/23 04/11/23 15:06 15:16 15:27 Vitamin B12 447 25-OH Vitamin D Total 20.4 L Folate 12.66 Adenovirus (PCR) Not Detected B. pertussis DNA (PCR) Not Detected B.parapertussis DNA PCR Not Detected C. pneumoniae DNA (PCR) Not Detected Coronavirus OC43 (PCR) Not Detected Coronavirus HKU1 (PCR) Not Detected Coronavirus 229E (PCR) Not Detected SARS-CoV-2 (PCR) Not Detected Coronavirus NL63 (PCR) Not Detected Human Metapneumovir PCR Not Detected Influenza Type A (PCR) Not Detected Influenza Type B (PCR) Not Detected M. pneumoniae (PCR) Not Detected Parainfluenza 1 (PCR) Not Detected Parainfluenza 2 (PCR) Not Detected Parainfluenza 3 (PCR) Not Detected Parainfluenza 4 (PCR) Not Detected RSV (PCR) Not Detected Entero/Rhino (PCR) DETECTED A* Group A Strep (PCR) NOT DETECTED Hospital Course (1) Schizoaffective disorder, bipolar type: (2) Suicide attempt: (3) Trauma and stressor-related disorder: (4) Gender dysphoria: (5) Rheumatoid arthritis: (6) Sciatic leg pain: (7) Sore throat: Plan 04/11/2023: * continue lamotrigine 100 mg daily - increased 04/10/2023 from prior to admission dose of 50 mg daily * continue risperidone 0.25 mg BID - prior to admission medication * consult hospitalist service re: pharyngodynia 04/10/2023: * increase lamotrigine to 100 mg daily - increased from prior to admission dose of 50 mg daily * continue risperidone 0.25 mg BID 04/09/2023: Continue current medications and tx plan. 04/08/2023: The patient was admitted to the [facility] ([facility] health unit) on q15 min checks (behavioral with suicide precautions) for safety. The patient will participate in group, recreational, and milieu therapies and will be offered additional individual and family sessions as clinically appropriate. * Continue lamictal 50mg daily * Continue risperidone 0.25mg BID * Restarted hormone replacement therapy medications * Will continue cough suppressant medications and pain medications for now as started by medical team to help with resolution of symptoms from recent intubation Mental Health & Subst Abuse Tx Psychiatrist Name of Psychiatrist: Lizzy Monroy (REFERRAL FAXED) Psychiatrist's Psychiatric Appointment Comment: [address] [place] [address] Therapist Name of Therapist: Nydia Mcgee- Gaby Lira LCSW Therapist's Therapy Appointment Comment: [address], [place] [address] Technology Officer Name of Technology Officer: [employer] Phone Number for Technology Officer: [phone] Case Management Appointment Comment: Zoom link will be sent to [employer] email Post Discharge Appointments Primary Care Physician Name Of Family Doctor/PCP: Kleber Hoover Primary Care Provider Appointment Comment: [address] [place] [address] Discharge Plan Discharge Items Patient Disposition: Transfer Acute Care Hospital Reason For Visit: UNSPECIFIED DEPRESSIVE DISORDER Discharge Diagnosis: Schizoaffective Disorder, Bipolar Type Activity: Resume your previous activity Non-emergency contact: Primary Care Provider and Psychiatrist Call non-emergency contact if: you have any medication questions and your symptoms worsen Follow-up/Referrals: Renata Waters MD [Primary Care Provider] - Diet: Regular Addtl Attending Provider Instructions: SPECIAL CARE INSTRUCTIONS: 1. Follow through with your scheduled aftercare appointments. If unable to keep an appointment, please call to reschedule. 2. Take your medication only as prescribed. Medication should not be changed or stopped without the approval of your doctor. In the event of worsening symptoms or concerns about side effects, contact your doctor immediately. 3. Utilize new healthy coping skills, anger management skills, and stress management skills learned during your hospitalization. Journal feelings and process them with a support person. Identify stressors or situations that may result in relapse, deterioration or inappropriate behaviors and develop a plan to deal with those issues. 4. If your coping skills are ineffective and you are in crisis, contact your outpatient providers for direction. If unable to reach your providers, please call the [facility] CRISIS LINE AT , go to the [facility] walk-in center at [address], [address], [place], or go to the closest Emergency Room. 5. Avoid alcohol and un-prescribed drugs. 6. You have been provided with the Mental Health Advance Directives Pamphlet for your review. 7. Your condition is stable for discharge to outpatient level of care, but recovery is an ongoing process. Ifthoughts to harm yourself or others return, follow the safety plan developed during your stay. Planning for a safe return home includes securing weapons. Our treatment team recommends weaponsbe removed from the home until your outpatient provider reassesses your progress. In rare cases where the items themselvescannot be removed, guns and ammunitionshould be secured separatelyand keys stored by a reliable personoutside of the home. If you were admitted on an involuntary commitment, the police or other legal authorities may be involved in this process. AFTERCARE APPOINTMENTS: * Please call your insurance company prior to your scheduled appointment to confirm your aftercare providers are covered. Take your insurance information to your appointments. WHO TO CALL AND WHEN: Medical Emergencies: For questions or emergencies related to your hospital stay, please contact the Inpatient Behavioral Health Unit at [phone]. A auto salvage worker is on-call 14/12 for the Behavioral Health Unit for emergencies At any time you feel your situation is an emergency, you may also call 911 immediately. Pending Studies at Discharge: No Stand-Alone Forms: My [facility] Skilled Items Patient informed of condition?: Yes DNR: No Discharge Level of Care: Other Communicable Disease: Yes Discharge Prognosis: Stable Lines: None Urinary Catheter: No Medications and DC Order Prescriptions: New hydroxyzine HCl 25 mg Tablet 25 mg PO Q4H PRN (Reason: anxiety) 30 Days Qty: 30 0RF hydroxyzine HCl 25 mg Tablet 50 mg PO HSZ PRN (Reason: insomnia) 30 Days Qty: 30 0RF HurriCaine 20 % Gel 1 applic MT Q6H PRN (Reason: mouth irritation) 30 Days Qty: 1 0RF risperidone 0.5 mg Tablet 0.25 mg PO BID 30 Days Qty: 30 0RF Cepacol Sore Throat (nigel-men) 15-3.6 mg Lozenge 1 lino buccal 6XD PRN (Reason: sore throat) 30 Days Qty: 16 0RF bacitracin 500 unit/gram Ointment 1 applic EXT BID 14 Days Qty: 1 0RF benzonatate 100 mg Capsule 100 mg PO TID 30 Days Qty: 90 0RF pantoprazole 40 mg Tablet,Delayed Release (Dr/Ec) 40 mg PO QAM 30 Days Qty: 30 0RF Continued Humira(CF) Pen 40 mg/0.4 mL pen injector kit 40 mg SUBCUT DIRECTED lamotrigine [Lamictal] 25 mg tablet 100 mg PO QPM spironolactone 50 mg tablet 50 mg PO BID gabapentin 100 mg capsule 400 mg PO BID Rx Instructions: morning and afternoonj finasteride 5 mg tablet 5 mg PO DAILY estradiol 2 mg tablet 2 mg PO BID hydrocodone-homatropine [Hydromet] 5-1.5 mg/5 mL Syrup 5 ml PO Q6H PRN (Reason: cough) Qty: 473 0RF guaifenesin [Mucinex] 600 mg Tablet Extended Release 12hr 600 mg PO Q12H Discontinued omeprazole 40 mg capsule,delayed release(DR/EC) 40 mg PO QAM Discharge Orders: Discharge Order (Routine); Ordered 04/11/23 Ordered By: Kristian Arroyo Admission Data Admit Date/Time: 04/07/23 20:45 Attending Provider: Bronwyn Deleon Admit Provider: Bronwyn Deleon Primary Care Provider: Renata Waters Other Providers: Cody Palm; Maya Delgado; Codie Morley I.; Kamlesh Interiano; Bianca Stringer; Bindu Phillip; Makayla Grimaldo; Vaishali Cortes; Manuel Paul; Jason Talbot; Rakesh Alvarenga; Kourtney Damian; Randy Goldberg; Pricilla Medina; Kesha Sullivan; Alayna العراقي; Temo Borrero; Sue Haney; Stella Calabrese; Amee Gomez; Sarina Bryant I.; Blaze Bar; Samuel Joya; Niya Kessler; Stveen Terry; Ayaz Walter; Willie Sanchez; Ollie Paredes; Opal Arambula; Skylar Hung Other Interventions: Discharge Summary Assessment (RN) Last Done: 04/11/23 17:32 PSY Interdisciplinary Discharge Planning Last Done: 04/11/23 17:36 Coding Level of Care Code 82689 D/C day mgmt > 30 min Diagnoses Schizoaffective disorder, bipolar type F25.0 Suicide attempt T14.91XA Trauma and stressor-related disorder F43.9 Gender dysphoria F64.9 Rheumatoid arthritis, involving unspecified site, unspecified whether rheumatoid factor present M06.9 Rheumatoid arthritis location: unspecified site Rheumatoid factor presence: unspecified presence Sciatic leg pain M54.30 Sore throat J02.9 Time Spent (min) 114
[2023-04-11] MEDS ORDERED: FLUTICASONE PROPIONATE NA SPR 16 GM BTL SCH (22:00)
== END 2023-04-11 20:11 | disposition short-term general hospital (02) | DRG 885 ==
LOC: 3S 20:45

== ENCOUNTER 2023-04-11 17:24 | Inpatient (IN) ==
--- NOTE | 2023-04-11 18:05 | History & Physical Report ---
Date of Service April 11, 2023 Assessment & Plan (1) Rhinovirus infection: (2) Dysphonia: (3) Sore throat: (4) Wound of left foot: (5) Schizoaffective disorder, bipolar type: (6) Suicide attempt: Plan: This is a 27 yo transgendered male who identifies as female and goes by [place], Medical history significant for GERD, ANUEL CPAP intolerance, seronegative RA, schizoaffective disorder, anxiety/mood disorder, ADD, anosmia secondary to congenital nasal septal deviation status post surgery who initially presented to the [facility] for suicide attempt via ingestion of ativan and alcohol with acute metabolic encephalopathy due to drug overdose, alcohol and anoxia, acute respiratory failure with hypoxia and hypercarbia, and aspiration pneumonia. Pt was admitted to the ICU after intubation on 03/25, had OGT tube placed for trickle feeding, and had suction to the hypopharynx due to chunks of food and pills noted with aspiration. Pt underwent flexible bronchoscopy with bronchial washing from right lung on 03/29. Extubated on 03/31. A course of IV unasyn x 7 days completed during course. Galactomannan Ag positive was noted, however Infectious disease said no treatment and monitored the patient. Pt had Left jugular venous access from ICU which is noted on exam, healing. Pt had multiple electrolyte abnormalities which were repleted as needed. Pt also with hx of peptic ulcer disease and had an episode of bloody emesis which was treated with IV protonix and Gastroenterology saw the patient. Hgb was stable and there was not an indication for endoscopic evaluation. Pt was seen by speech therapy on 04/04. Patient had complaints of coughing for 4 months at that time, but has been worse s/p extubation, and with complaints of dysphonia. At that time recommendation was made by speech for ENT consultation to r/o damage to vocal fo ld and larynx via direct laryngoscopy as an outpatient. Pt also underwent a Barium swallow evaluation as had UGI bleed and reflux, which were suspicious for possible esophageal dysfunction. Results demonstrated normal oropharyngeal swallowing mechanics, does cough with swallowing, and was not correlated to aspiration. Pt was discharge to psychiatric service on 04/07. 3-4 days worsening sore throat, dysphagia 1 day worsening dysphonia Sore throat Dysphonia +Rhinovirus Positive - S/p intubation on 03/25 1 extubation on 03/31, s/p suctioning in hypopharynx for aspiration, OGT placed for trickle feeds which in ICU. Concern for trauma to larynx. - Symptoms including dysphonia, sided neck lymphadenopathy, tenderness with palpation left neck worsening over the past 3 to 4 days - Concern for possible postextubation tonsillar abscess versus infectious symptoms, will obtain a bio fire nasal swab, group A strep swab of the throat - Check CT soft tissue neck with contrast to evaluate for abscess - Noted ENT was recommended by speech therapy on 04/04 and 04/05, as an outpatient, ENT not available in house- discussed with pulmonology here at [facility] who agrees with management as above, would be suspicious with traumatic intubation. - Will need ENT follow up on discharge Schizoaffective disorder, Bipolar Type - Psychiatric medications as per psych team - 1:1 ordered, suicide precautions - History of suicidal ideation and attempt on 03/25, none presently, continue to recommend follow-up with group therapy, counseling, and will require outpatient follow-up with psych - Appears pt is off Calypta, trazodone and ativan - Lamictal has been increased to 100 mg QPM, gabapentin increased to 400 mg BID from 200 mg BID, - On estradiol 2 mg BID and finasteride 5 mg daily for transgender identity, possible that spironolactone is also for such - Cont Risperdal 0.25 mg BID Wound of Left Foot -Patient currently wearing a left hard boot status post ICU stay, reported by nursing as a blood blister, patient is ambulating with the use of a cane for balance assistance -Notes generalized deconditioning since ICU stay, encourage ambulation, PT and OT and to advance as tolerated - Pt does not appear volume overloaded - on spironolactone 50 mg BID and appears this was Rxd prior to admission in the ICU, monitor Rheumatoid Arthritis - Hx of such - would recommend continues with rheumatology and/or PCP on discharge - Hx of being on Humira inj - unknown when last taken Morbid Obesity - BMI 35.4, diet and exercise should be encouraged DVT ppx: ambulatory Lines: 1 PIV FEN/GI: Regular diet CODE: FULL History of Present Illness Chief Complaint: Rhinovirus positive Primary Care Provider: Renata Waters MD This is a 27 yo transgendered male who identifies as female and prefers the name Ethel. Medical history significant for GERD, ANUEL CPAP intolerance, seronegative RA, schizoaffective disorder, anxiety/mood disorder, ADD, anosmia secondary to congenital nasal septal deviation status post surgery who initially presented to the [facility] for suicide attempt via ingestion of ativan and alcohol with acute metabolic encephalopathy due to drug overdose, alcohol and anoxia, acute respiratory failure with hypoxia and hypercarbia, and aspiration pneumonia. Pt was admitted to the ICU after intubation on 03/25, had OGT tube placed for trickle feeding, and had suction to the hypopharynx due to chunks of food and pills noted with aspiration. Pt underwent flexible bronchoscopy with bronchial washing from right lung on 03/29. Extubated on 03/31. A course of IV unasyn x 7 days completed during course. Galactomannan Ag positive was noted, however Infectious disease said no treatment and monitored the patient. Pt had multiple electrolyte abnormalities which were repleted as needed. Pt also with hx of peptic ulcer disease and had an episode of bloody emesis which was treated with IV protonix and Gastroenterology saw the patient. Hgb was stable and there was not an indication for endoscopic evaluation. Pt was seen by speech therapy on 04/04. Patient had complaints of coughing for 4 months at that time, but has been worse s/p extubation, and with complaints of dysphonia. At that time recommendation was made by speech for ENT consultation to r/o damage to vocal fold and larynx via direct laryngoscopy as an outpatient. Pt also underwent a Barium swallow evaluation as had UGI bleed and reflux, which were suspicious for possible esophageal dysfunction. Results demonstrated normal oropharyngeal swallowing mechanics, does cough with swallowing, and was not correlated to aspiration. Pt was discharge to psychiatric service on 04/07. Pt had been doing well since that time until 3-4 days ago where she has progressively had worsening sore throat pain, and today has worsening hoarseness of voice and during my visit is only able to whisper. Pt has been afebrile. Pt notes has been difficult to swallow food due to pain but is tolerating liquids without any difficulty. Today was able to eat small bits of chicken and oatmeal raisin cookie at lunchtime but only had ice chips at breakfast due to pain. Pt has hydrocodeine syrup ordered and has been taking this about 1 hour before meals to help with pain. It is also prn cough, which has been present for several months, but worse s/p extubation. Admits to having some swelling of lymph nodes under the chin and down the left neck which is tender to touch. Patient admits to having seasonal allergies but typically has eye irritation, puffiness and itchiness which is not present today. Reports history of ear infections as a child, none as an adult, can recall 2 times of having ear tubes placed visits child as well. Denies any nasal drip, admits to slightly runny nose today, no sinus tenderness or pressure. Patient reports that it is difficult to take breaths through mouth at times, but denies any specific s hortness of breath while sitting. Denies any fevers, sweats or chills. Upon [employer] results being Rhinovirus positive on 04/11, pt required transfer to the medical floor as is not able to stay on the psychiatric unit due to droplet precautions. Allergies Allergy/AdvReac Type Severity Reaction Status Date / Time azithromycin [From Zithromax] Allergy Intermediate Rash Verified 03/24/23 23:31 Home Medications Medication Instructions Recorded Confirmed Type adalimumab 40 mg/0.4 mL 40 mg subcut DIRECTED 03/11/23 04/11/23 History subcutaneous pen kit (Humira(CF) Pen) finasteride 5 mg tablet 5 mg PO DAILY 03/11/23 04/11/23 History gabapentin 100 mg capsule 400 mg PO BID 03/11/23 04/11/23 History lamotrigine 25 mg tablet (Lamictal) 100 mg PO QPM 03/11/23 04/11/23 History spironolactone 50 mg tablet 50 mg PO BID 03/11/23 04/11/23 History estradiol 2 mg tablet 2 mg PO BID 03/24/23 04/11/23 History hydrocodone-homatropine 5 mg-1.5 5 ml PO Q6H PRN cough #473 mL 04/07/23 04/11/23 Rx mg/5 mL oral syrup (Hydromet) bacitracin 500 unit/gram topical 1 applic EXT BID 14 days #1 g 04/11/23 Rx ointment benzocaine 15 mg-menthol 3.6 mg 1 lino buccal 6XD PRN sore throat 04/11/23 Rx lozenges (Cepacol Sore Throat 30 days #16 ea (benzocaine-menthol)) benzocaine 20 % mucosal gel 1 applic MT Q6H PRN mouth 04/11/23 Rx (HurriCaine) irritation 30 days #1 g benzonatate 100 mg capsule 100 mg PO TID 30 days #90 caps 04/11/23 Rx guaifenesin 600 mg tablet, 600 mg PO Q12H 04/11/23 04/11/23 History extended release 12 hr (Mucinex) hydroxyzine HCl 25 mg tablet 25 mg PO Q4H PRN anxiety 30 days 04/11/23 Rx #30 tabs hydroxyzine HCl 25 mg tablet 50 mg (2 x 25 mg) PO HSZ PRN 04/11/23 Rx insomnia 30 days #30 tabs pantoprazole 40 mg tablet,delayed 40 mg PO QAM 30 days #30 tabs 04/11/23 Rx release risperidone 0.5 mg tablet 0.25 mg (1/2 x 0.5 mg) PO BID 30 04/11/23 Rx days #30 tabs Past Med/Surg History Medical History (Updated 04/11/23 @ 17:30 by Maya Delgado PA-C) Sore throat Schizoaffective disorder, bipolar type Encounter for pre-operative examination Vermiculation Suicidal ideations Rheumatoid arthritis seronegative Surgical History (Updated 04/11/23 @ 00:10 by Ivan Huffman) No significant past surgical history Family History Other Back pain Social History Smoking Status: Never smoker Second Hand Exposure: No; Do You Dip or Chew Tobacco: No; Hx Alcohol Use: Yes Hx Substance Use: No Preferred Language: Mosotho Communication Ability: Effective Communication Ability Comment: unable to assess currently intubated Molder Fitting Required: No Beliefs That Will Affect Care: None marital status: Single Current Living Situation: Alone Current Living Situation Comment: college student current occupational status: student Feels Safe at Home: Yes Safety Concerns: Feels Safe At This Time Gender Identity: Transgender Female Assistive Devices: Cane and Glasses Review of Systems Review of Systems: Constitutional: No fever, sweats or chills Eyes: No diplopia, no worsening or blurred vision ENT: normal hearing, + trouble swallowing hard foods, tolerating liquids without difficulty Respiratory: No cough, sputum, dyspnea at rest or on exertion Cardiovascular: No chest pain, tightness or palpitations Abdomen: No pain, nausea, vomiting, diarrhea or constipation Musculoskeletal: No joint pain, calf pain, swelling Neurologic: + Feels generalized weakness in the upper extremities which is progressively improving status post ICU stay, no numbness/tingling, or balance problems, + using cane to ambulate due to wearing a left foot boot Psychiatric: + Anxiety and mood disorder on medication Skin: No rash or itch Physical Exam Physical Exam: General: awake, alert, no apparent distress, + obese with BMI of 35.4, white male, identifies as female Head: Normocephalic, atraumatic ENT: PERRL, EOMI, no pharyngeal erythema or exudate, left tonsillar edema, + submandibular lymph node edema bilaterally, left posterior cervical chain lymphadenopathy with tenderness to palpation, mucous membranes moist, left jugular region without ecchymosis but has pinpoint area of scabbing, healing. Chest: Clear to auscultation, on room air, no adventitious breath sounds Cardiac: Regular rate and rhythm, no murmur, no JVD, normal peripheral pulses, good capillary refill Abdominal: NABS x 4 quadrants, soft, nondistended, nontender to palpation, no rebound or guarding Extremities: Normal inspection, no peripheral edema or erythema, calfs nontender to palpation, + left hard boot Psych: Normal mood and affect Neuro: AAO x 3, strength intact bilaterally and rated 5/5, no motor deficits, speech is clear, no peripheral sensory deficits Results & Data Results & Data Laboratory Results 04/11/23 04/11/23 15:27 15:16 Adenovirus (PCR) Not Detected B. pertussis DNA (PCR) Not Detected B.parapertussis DNA PCR Not Detected C. pneumoniae DNA (PCR) Not Detected Coronavirus OC43 (PCR) Not Detected Coronavirus HKU1 (PCR) Not Detected Coronavirus 229E (PCR) Not Detected SARS-CoV-2 (PCR) Not Detected Coronavirus NL63 (PCR) Not Detected Human Metapneumovir PCR Not Detected Influenza Type A (PCR) Not Detected Influenza Type B (PCR) Not Detected M. pneumoniae (PCR) Not Detected Parainfluenza 1 (PCR) Not Detected Parainfluenza 2 (PCR) Not Detected Parainfluenza 3 (PCR) Not Detected Parainfluenza 4 (PCR) Not Detected RSV (PCR) Not Detected Entero/Rhino (PCR) DETECTED A* Group A Strep (PCR) NOT DETECTED Diagnostic Findings Soft Tissue Neck CT 04/11/23 13:58 CT OF THE NECK WITH IV CONTRAST CLINICAL HISTORY: S/p extubation on 03/31, eval for trauma, abscess COMPARISON STUDY: Chest CT March 30, [address] March 24, 2023 TECHNIQUE: Following IV administration of 93 mL of Optiray, helical axial images of the neck were obtained. Sagittal and coronal reconstructions were viewed. Automated exposure control was utilized for the study. A dose lowering technique was utilized adhering to the principles of ALARA. FINDINGS: Visualized portions of the intracranial contents are unremarkable. No significant mastoid fluid is present. Visualized portions of the sinuses are clear. Orbits are unremarkable. There is no prevertebral edema. The epiglottis is normal. Parotid and submandibular glands are unremarkable. Major vasculature of the neck is patent. There is no fluid collection within the neck. There may be mild thickening of the aryepiglottic folds. No soft tissue gas within the neck is noted. Thickening and subcutaneous stranding of the chin is present. No acute fractures are identified within the visualized skeletal structures. Mild airspace opacities within the right upper lobe has significantly improved since chest CT of March 30, 2023. Mildly enlarged. There is no peritonsillar abscess. Visualized portions of the trachea are unremarkable. IMPRESSION: 1. Possible mild thickening of the aryepiglottic folds, a nonspecific finding. No soft tissue gas within neck. No abscess within the neck. No prevertebral edema. 2. Mild right upper lobe airspace opacities, significantly improved since chest CT of March 30, 2023. 3. Mildly enlarged tonsils. No peritonsillar abscess. No associated inflammation. Code Status & VTE Plan Code Status Full code VTE Prophylaxis Plan VTE Prophylaxis will be ordered: Yes Supervising Physician Co-Signing Physician Notes I have seen and examined the patient and have discussed the case with the provider above. I agree with the assessment and plan as stated. Rickie,
--- OUTSIDE RECORDS SUMMARY | 2023-04-11 20:23 | External Medical Summary | Summary of Care ---
Author Name Unknown Organization [facility] Address [address] [place] [address] Phone [phone] Care Team Providers Care Coupling Machine Operator Name Role Phone Renata Waters MD Primary Care Provider [phone] Reason for Visit * Reason Onset Date Comments Hospital Follow-Up 04/08/2023 No DELANEY needed Encounter Details Date Type Department Care Team (Late st Contact Info) Description 04/08/2023 Telephone Ancillary [facility] [place] [address] [place] [address] Britta Lugo RN Hospital Follow-Up (No DELANEY needed) Allergies Active Allergy Reactions Criticality Noted Date Comments Azithromycin 02/07/2021 rash documented as of this encounter (statuses as of 04/08/2023) Medications Medication Sig Dispensed Refills Start Date [...] mouth daily. 2 daily 0 07/30/2022 Active Troy-3 1000 MG Oral Capsule Take 2 Capsules [...] as of this encounter (statuses as of 04/08/2023) Active Problems Problem Noted Date Diagnosed Date BMI 40.0-44.9, adult 11/30/2022 Encounter for therapeutic drug monitoring 2021 Schizophrenia 04/29/2021 BMI 38.0-38.9,adult 02/07/2021 Obstructive sleep apnea, adult 09/27/2017 RONI (generalized anxiety disorder) 05/22/2015 Rheumatoid arthritis of [facility] sites with negative rheumatoid factor Gastroesophageal reflux disease without esophagi tis Allergic sinusitis documented as of this encounter (statuses as of 04/08/2023) Immunizations Name Administration Dates Next Due COVID-19 mRNA, LNP-s, No Pre serve, 2-Dose Series (IntelliFlo) 01/22/2021,08/05/2020,07/22/2020 SEASONAL INFLUENZA, PF, 6 M & [...] encounter Miscellaneous Notes * Telephone Encounter - Britta Lugo RN - 04/08/2023 8:07 AM EST Transitions of Care Note Reason for Referral:Recent Admission Phone visit for follow up: Inpatient Hospitalization Admitted to: [facility], Date: 03/25 Discharged to: home, Date: 04/07 DELANEY call not indicated due to behavioral health admission. Britta Lugo RN documented in this encounter Plan of Treatment Upcoming Encounters Date Type Department Care Team (Late st Contact Info) Description 05/25/2023 2:00 PM EST Office Visit General Internal Medicine [facility] [address] [place] [address] Renata Waters MD [address] [facility] [place] [address] 09/28/2023 4:00 PM EDT Office Visit Rheumatology [facility] [address] [address] Brando Degroot MD [address] [place] [address] Health Maintenance Due Date Last Done Comments [...] filedocumented as of this encounter Care Teams Coupling Machine Operator Relationship Specialty Start Date End Date Renata Waters MD [address] [place] [address] PCP - General Internal Medicine 05/10/21 documented as of this encounter
[2023-04-11] MEDS: SPIRONOLACTONE 25 MG TAB PO SCH (20:46)
[2023-04-11] MEDS: guaiFENesin 600 MG TABCR PO SCH (20:48)
[2023-04-11] MEDS: GABAPENTIN 400 MG CAP PO SCH (20:49)
[2023-04-11] MEDS: estradioL 1 MG TAB PO SCH (20:49)
[2023-04-11] MEDS: lamoTRIgine 100 MG TAB PO SCH (20:49)
[2023-04-11] MEDS ORDERED: BENZOCAINE 20% (ORAJEL) 11.9 GM TUBE MT PRN (23:51)
[2023-04-11] MEDS ORDERED: hydrOXYzine HCl 25 MG TAB PO PRN ×2 (23:51)
[2023-04-11] MEDS ORDERED: COUGH DROP (SUGAR FREE) LOZ 24 LOZ/1 BOX BUCCAL PRN (23:51)
[2023-04-12] MEDS: guaiFENesin 600 MG TABCR PO SCH ×2 (05:49→19:08)
[2023-04-12] MEDS: estradioL 1 MG TAB PO SCH ×2 (08:03→20:14)
[2023-04-12] MEDS: FINASTERIDE 5 MG TAB PO SCH (08:05)
[2023-04-12] MEDS: GABAPENTIN 400 MG CAP PO SCH ×2 (08:05→20:13)
[2023-04-12] MEDS: PANTOprazole 40 MG TAB PO SCH (08:06)
[2023-04-12] MEDS: risperiDONE 0.5 MG TABLET PO SCH ×2 (08:06→20:13)
[2023-04-12] MEDS: SPIRONOLACTONE 25 MG TAB PO SCH ×2 (08:08→20:13)
[2023-04-12] MEDS: BENZONATATE 100 MG CAPSULE PO PRN ×2 (08:09→16:54)
[2023-04-12] MEDS: HYDROcodone/HOMATROPINE SYRUP 5MG/1.5MG 5ML UDP PO PRN ×2 (08:20→16:54)
[2023-04-12 10:11] LABS: Basophils # (auto) 0.04 K/uL (0.00-0.20); Basophils % (auto) 0.6 %; Eosinophils # (auto) 0.12 K/uL (0.00-0.50); Eosinophils % (auto) 1.7 %; Hematocrit (blood only) 37.8 % (42.0-52.0); Hemoglobin 12.2 g/dl (14.0-18.0); Immature Granulocytes # (auto) 0.02 K/uL (0.01-0.20); Immature Granulocytes % (auto) 0.3 %; Lymphocytes # (auto) 2.04 K/uL (1.20-3.40); Lymphocytes % (auto) 29.1 %; Mean Corpuscular Hemoglobin 26.1 pg (25.0-34.0); Mean Corpuscular Hgb Conc 32.3 g/dL (32.0-36.0); Mean Corpuscular Volume 80.9 fL (80.0-100.0); Mean Platelet Volume 9.8 fL (9.4-12.4); Monocytes # (auto) 0.54 K/uL (0.11-0.59); Monocytes % (auto) 7.7 %; Neutrophils # (auto) 4.25 K/uL (1.40-6.50); Neutrophils % (auto) 60.6 %; Platelet Count 634 K/uL (130-400); RDW Coefficient of Variation 19.7 % (11.5-14.5); RDW Standard Deviation 57.1 fL (36.4-46.3); Red Blood Count 4.67 M/uL (4.70-6.10); White Blood Count 7.01 K/ul (4.8-10.8)
[2023-04-12 10:22] LABS: BUN Creatinine Ratio 14.9 (10-20); Calcium 9.3 mg/dl (8.6-10.3); Creatinine Clr Calc Pharmacy 176.5 ml/min; Est GFR (African American) 130.1 ml/min; Est GFR (Non-African American) 112.2 ml/min
--- NOTE | 2023-04-12 13:51 | Hospitalist Progress Note ---
Date of Service April 12, 2023 Assessment & Plan (1) Rhinovirus infection: (2) Dysphonia: (3) Sore throat: (4) Wound of left foot: (5) Schizoaffective disorder, bipolar type: (6) Suicide attempt: Plan: 27 yo transgendered male who identifies as female and goes by Ethel, Medical history significant for GERD, ANUEL CPAP intolerance, seronegative RA, schizoaffective disorder, anxiety/mood disorder, ADD, anosmia secondary to congenital nasal septal deviation status post surgery who initially presented to the [facility] for suicide attempt via ingestion of ativan and alcohol with acute metabolic encephalopathy due to drug overdose, alcohol and anoxia, acute respiratory failure with hypoxia and hypercarbia, and aspiration pneumonia. Pt was admitted to the ICU after intubation on 03/25, had OGT tube placed for trickle feeding, and had suction to the hypopharynx due to chunks of food and pills noted with aspiration. Pt underwent flexible bronchoscopy with bronchial washing from right lung on 03/29. Extubated on 03/31. A course of IV unasyn x 7 days completed during course. Galactomannan Ag positive was noted, however Infectious disease said no treatment and monitored the patient. Pt had Left jugular venous access from ICU which is noted on exam, healing. Pt had multiple electrolyte abnormalities which were repleted as needed. Pt also with hx of peptic ulcer disease and had an episode of bloody emesis which was treated with IV protonix and Gastroenterology saw the patient. Hgb was stable and there was not an indication for endoscopic evaluation. Pt was seen by speech therapy on 04/04. Patient had complaints of coughing for 4 months at that time, but has been worse s/p extubation, and with complaints of dysphonia. At that time recommendation was made by speech for ENT consultation to r/o damage to vocal fold and larynx via direct laryngoscopy as an outpatient. Pt also underwent a Barium swallow evaluation as had UGI bleed and reflux, which were suspicious for possible esophageal dysfunction. Results demonstrated normal oropharyngeal swallowing mechanics, does cough with swallowing, and was not correlated to aspiration. Pt was discharge to psychiatric service on 04/07. She had 3-4 days worsening sore throat, dysphagia and 1 day worsening dysphonia, Rhino virus came back positive, hence patient transferred to medical floor 04/11. She is being managed for the following: Sore throat Dysphonia +Rhinovirus Positive - S/p intubation on 03/25 1 extubation on 03/31, s/p suctioning in hypopharynx for aspiration, OGT placed for trickle feeds which in ICU. Concern for trauma to larynx. - Symptoms including dysphonia, Lt sided neck lymphadenopathy, tenderness with palpation left neck worsening over the past 3 to 4 days [employer] - Concern for possible postextubation tonsillar abscess versus infectious symptoms - biofire/strep throat neg except rhinovirus. CT Soft tissue neck - no abscess/gas noted. Possible mild thickening of the aryepiglottic folds, a nonspecific finding. - Noted ENT was recommended by speech therapy on 04/04 and 04/05, as an outpatient, ENT not available in house- prior attending discussed with pulmonology here at [facility] who agrees with management as above, would be suspicious with traumatic intubation. - Will need ENT follow up on discharge - reports improving sore throat, improving voice, and being able to swallow better Schizoaffective disorder, Bipolar Type - Psychiatric medications as per psych team - 1:1 ordered, suicide precautions - History of suicidal ideation and attempt on 03/25, none presently, continue to recommend follow-up with group therapy, counseling, and will require outpatient follow-up with psych - Appears pt is off Calypta, trazodone and ativan - Lamictal has been increased to 100 mg QPM, gabapentin increased to 400 mg BID from 200 mg BID, - On estradiol 2 mg BID and finasteride 5 mg daily for transgender identity, possible that spironolactone is also for such - Cont Risperdal 0.25 mg BID Wound of Left Foot -Patient currently wearing a left hard boot status post ICU stay, reported by nursing as a blood blister, patient is ambulating with the use of a cane for balance assistance -Notes generalized deconditioning since ICU stay, encourage ambulation, PT and OT and to advance as tolerated - Pt does not appear volume overloaded - on spironolactone 50 mg BID and appears this was Rxd prior to admission in the ICU, monitor - PT/OT when appropriate. Rheumatoid Arthritis - Hx of such - would recommend continues with rheumatology and/or PCP on discharge - Hx of being on Humira inj - unknown when last taken Morbid Obesity - BMI 35.4, diet and exercise should be encouraged DVT ppx: ambulatory Lines: 1 PIV FEN/GI: Regular diet CODE: FULL Admission and Anticipated Discharge Date Admission Date: April 11, 2023 Subjective Patient was seen and examined at bedside. Patient was sitting up in chair, on room air, NAD, reports somewhat improving sore throat, denies suicidal ideation, denies any other review of symptoms. Patient appears comfortable. Reports eating okay/denies any swallowing problems. Physical Exam Physical Exam: General: awake, alert, no apparent distress, Obesity class II, white male, identifies as female Head: Normocephalic, atraumatic ENT: PERRL, EOMI, no pharyngeal erythema or exudate, erythematous/mildly swollen throat on exam Chest: Clear to auscultation, on room air, no adventitious breath sounds Cardiac: Regular rate and rhythm, no murmur, no JVD, normal peripheral pulses, good capillary refill Abdominal: NABS x 4 quadrants, soft, nondistended, nontender to palpation, no rebound or guarding Extremities: Normal inspection, no peripheral edema or erythema, calfs nontender to palpation, + left hard boot Psych: Normal mood and affect Neuro: AAO x 3, strength intact bilaterally and rated 5/5, no motor deficits, speech is clear, no peripheral sensory deficits Results & Data Results & Data Vital Signs (Past 12 Hours) Vital Signs Temp Pulse Resp BP Pulse Ox O2 Del Method 04/12/23 08:02 36.7 C 89 13 115/79 91 Room Air 04/12/23 07:55 Room Air
[2023-04-12] MEDS ORDERED: ACETAMINOPHEN 325 MG TAB PO PRN (17:02)
[2023-04-12] MEDS: lamoTRIgine 100 MG TAB PO SCH (20:14)
--- NOTE | 2023-04-12 20:15 | Psychiatric Progress Note ---
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 She was started on risperidone and lamictal and so far has felt this is helping with mood symptoms and has not experienced any symptoms of psychosis. Suicide notes, which were part of the medical chart, suggest possible component of cluster B traits/interpersonal conflicts/externalization as well as unspecified trauma and stressor disorder, alcohol use and gender dysphoria as additional driving factors leading to suicide attempt and current psychiatric presentation. 04/12/2023: Pt had actually been improving noticeably prior to transfer to medicine for isolation. She requested discharge to home due to not wanting to be in isolation, but that would certainly have been premature given the seriousness of the symptoms for which she'd been admitted. Is irritated at being made to remain in the hospital with droplet precautions but continues to deny current suicidal thoughts. She has been able to contract for safety in the hospital and, while she does need frequent checks, does not require 1:1 monitoring. She is tolerating current medication without evidence of adverse effects. While I don't think discharge right now would be appropriate, it seems fairly likely that she might be psychiatrically stable for discharge in a few days. 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 Was transferred to the medical service for droplet isolation because of rhinovirus infection since such precautions cannot be implemented on the psychiatric unit. Chief Complaint "I don't like isolation". Subjective Subjective The patient was seen and assessed and interval progress reviewed in a multidisciplinary team meeting with psychiatric liaison nursing and social work. For details, see the "Impression" section. Overall I spent a total of 21 minutes for this consultation follow-up including review of chart records, review of test results, direct evaluation of the patient [id number], counseling the patient, risk assessment, discussion with the psychiatric liaison nurse, and documentation in the electronic health record. Physical Exam Psychiatric Orientation: alert, oriented to person, oriented to place, oriented to time and cooperative Apperance: appropriately dressed and appropriately groomed Eye Contact: + fair eye contact Motor Behavior: no abnormal motor movements Speech: + abnormal rate/rhythm/volume of speech (quiet, hoarse) Affect: + irritable affect Mood: + irritable mood Thought Process: linear/logical thought process Thought Content: reality based without delusions Suicidal Thoughts: denies suicidal thoughts, denies suicidal plan and denies suicidal intent Homicidal Thoughts: denies homicidal thoughts Hallucinations: no auditory hallucinations and no visual hallucinations Cognition: recent memory grossly intact, remote memory grossly intact, attention grossly intact and language grossly intact Estimated Intelligence: consistent with education level Insight: + fair insight Judgment: + limited judgement Vital Signs (Past 24 Hours) Last Vital Signs Temp 36.7 C 04/12/23 20:10 Pulse 87 04/12/23 20:10 Resp 18 04/12/23 20:10 BP 116/80 04/12/23 20:10 Pulse Ox 95 04/12/23 20:10 O2 Del Method Room Air 04/12/23 20:10 Results & Data ([id number]) Laboratory Results Laboratory Results - last 24 hr 04/12/23 09:17 WBC 7.01 RBC 4.67 L Hgb 12.2 L Hct 37.8 L MCV 80.9 MCH 26.1 MCHC 32.3 RDW Std Deviation 57.1 H RDW Coeff of Rene 19.7 H Plt Count 634 H MPV 9.8 Immature Gran % (Auto) 0.3 Neut % (Auto) 60.6 Lymph % (Auto) 29.1 [place] % (Auto) 7.7 Eos % (Auto) 1.7 Baso % (Auto) 0.6 Neut # (Auto) 4.25 Lymph # (Auto) 2.04 [place] # (Auto) 0.54 Eos # (Auto) 0.12 Baso # (Auto) 0.04 Immature Gran # (Auto) 0.02 Sodium 136 Potassium 4.0 Chloride 106 Carbon Dioxide 23 Anion Gap 7 BUN 14 Creatinine 0.94 Est Cr Clr Drug Dosing 176.5 Est GFR ( Amer) 130.1 Est GFR (Non-Af Amer) 112.2 BUN/Creatinine Ratio 14.9 Glucose 96 Calcium 9.3 Current Inpatient Medications Current Inpatient Medications: Current Inpatient Medications Acetaminophen (Acetaminophen 325 Mg Tab) 650 mg PO Q6H PRN PRN Reason: Pain or Fever Stop: 05/12/23 17:01 Last Admin: 04/12/23 17:36 Dose: 650 mg Benzocaine (Benzocaine 20% (Orajel) 11.9 Gm Tube) 1 appln MT Q6H PRN PRN Reason: mouth irritation Stop: 05/11/23 23:50 Benzonatate (Benzonatate 100 Mg Capsule) 100 mg PO TID PRN PRN Reason: cough Stop: 05/12/23 08:59 Last Admin: 04/12/23 16:54 Dose: 100 mg Estradiol (Estradiol 1 Mg Tab) 2 mg PO BID [facility] Stop: 05/11/23 20:59 Last Admin: 04/12/23 08:03 Dose: 2 mg Finasteride (Finasteride 5 Mg Tab) 5 mg PO DAILY [facility] Stop: 05/12/23 08:59 Last Admin: 04/12/23 08:05 Dose: 5 mg Gabapentin (Gabapentin 400 Mg Cap) 400 mg PO BID [facility] Stop: 05/11/23 20:59 Last Admin: 04/12/23 08:05 Dose: 400 mg Guaifenesin (Guaifenesin 600 Mg Tabcr) 600 mg PO Q12H [facility]IK[facility] Stop: 05/11/23 17:59 Last Admin: 04/12/23 19:08 Dose: 600 mg Hydrocodone Bit/Homatropine Methylb (Hydrocodone/Homatropine Syrup 5mg/1.5mg 5ml Udp) 5 ml PO Q6H PRN PRN Reason: cough Stop: 04/25/23 17:53 Last Admin: 04/12/23 16:54 Dose: 5 ml Hydroxyzine HCl (Hydroxyzine Hcl 25 Mg Tab) 50 mg PO HSZ PRN PRN Reason: insomnia Stop: 05/11/23 23:50 Hydroxyzine HCl (Hydroxyzine Hcl 25 Mg Tab) 25 mg PO Q4H PRN PRN Reason: anxiety Stop: 05/11/23 23:50 Lamotrigine (Lamotrigine 100 Mg Tab) 100 mg PO QPM KIKA Stop: 05/11/23 20:59 Last Admin: 04/11/23 20:49 Dose: 100 mg Menthol (Cough Drop (Sugar Free) Andrez 24 Andrez/1 Box) 1 andrez BUCCAL 6XD PRN PRN Reason: sore throat Stop: 05/11/23 23:50 Pantoprazole Sodium (Pantoprazole 40 Mg Tab) 40 mg PO QAM KIKA Stop: 05/12/23 08:59 Last Admin: 04/12/23 08:06 Dose: 40 mg Risperidone (Risperidone 0.5 Mg Tablet) 0.25 mg PO BID KIKA Stop: 05/12/23 08:59 Last Admin: 04/12/23 08:06 Dose: 0.25 mg Spironolactone (Spironolactone 25 Mg Tab) 50 mg PO BID [facility]IKA Stop: 05/11/23 20:59 Last Admin: 04/12/23 08:08 Dose: 50 mg
--- NOTE | 2023-04-13 02:05 | Communication Note ---
Date of Service: April 13, 2023 Patient noted to have red bumps with some purulence on right anterior forearm. No overt cellulitis as per RN. AP RUE Folliculitis Topical antibiotic trial
[2023-04-13 05:53] LABS: Hematocrit (blood only) 36.5 % (42.0-52.0); Hemoglobin 11.5 g/dl (14.0-18.0); Mean Corpuscular Hemoglobin 25.7 pg (25.0-34.0); Mean Corpuscular Hgb Conc 31.5 g/dL (32.0-36.0); Mean Corpuscular Volume 81.7 fL (80.0-100.0); Mean Platelet Volume 9.4 fL (9.4-12.4); Platelet Count 594 K/uL (130-400); RDW Coefficient of Variation 19.3 % (11.5-14.5); RDW Standard Deviation 57.2 fL (36.4-46.3); Red Blood Count 4.47 M/uL (4.70-6.10); White Blood Count 8.38 K/ul (4.8-10.8)
[2023-04-13] MEDS: guaiFENesin 600 MG TABCR PO SCH ×2 (05:55→17:49)
[2023-04-13 06:58] LABS: Calcium 9.3 mg/dl (8.6-10.3)
[2023-04-13 07:04] LABS: BUN Creatinine Ratio 16.5 (10-20); Creatinine Clr Calc Pharmacy 182.3 ml/min; Est GFR (African American) 135.3 ml/min; Est GFR (Non-African American) 116.7 ml/min; Phosphorus 3.9 mg/dl (2.5-4.9)
[2023-04-13] MEDS: PANTOprazole 40 MG TAB PO SCH (08:02)
[2023-04-13] MEDS: estradioL 1 MG TAB PO SCH ×2 (08:02→20:50)
[2023-04-13] MEDS: GABAPENTIN 400 MG CAP PO SCH ×2 (08:02→20:50)
[2023-04-13] MEDS: FINASTERIDE 5 MG TAB PO SCH (08:02)
[2023-04-13] MEDS: risperiDONE 0.5 MG TABLET PO SCH ×2 (08:02→20:51)
[2023-04-13] MEDS: SPIRONOLACTONE 25 MG TAB PO SCH ×2 (08:03→20:52)
--- NOTE | 2023-04-13 16:00 | Hospitalist Progress Note ---
Date of Service April 13, 2023 Assessment & Plan (1) Rhinovirus infection: (2) Dysphonia: (3) Sore throat: (4) Wound of left foot: (5) Schizoaffective disorder, bipolar type: (6) Suicide attempt: Plan: 27 yo transgendered male who identifies as female and goes by Ethel, Medical history significant for GERD, ANUEL CPAP intolerance, seronegative RA, schizoaffective disorder, anxiety/mood disorder, ADD, anosmia secondary to congenital nasal septal deviation status post surgery who initially presented to the [facility] for suicide attempt via ingestion of ativan and alcohol with acute metabolic encephalopathy due to drug overdose, alcohol and anoxia, acute respiratory failure with hypoxia and hypercarbia, and aspiration pneumonia. Pt was admitted to the ICU after intubation on 03/25, had OGT tube placed for trickle feeding, and had suction to the hypopharynx due to chunks of food and pills noted with aspiration. Pt underwent flexible bronchoscopy with bronchial washing from right lung on 03/29. Extubated on 03/31. A course of IV unasyn x 7 days completed during course. Galactomannan Ag positive was noted, however Infectious disease said no treatment and monitored the patient. Pt had Left jugular venous access from ICU which is noted on exam, healing. Pt had multiple electrolyte abnormalities which were repleted as needed. Pt also with hx of peptic ulcer disease and had an episode of bloody emesis which was treated with IV protonix and Gastroenterology saw the patient. Hgb was stable and there was not an indication for endoscopic evaluation. Pt was seen by speech therapy on 04/04. Patient had complaints of coughing for 4 months at that time, but has been worse s/p extubation, and with complaints of dysphonia. At that time recommendation was made by speech for ENT consultation to r/o damage to vocal fold and larynx via direct laryngoscopy as an outpatient. Pt also underwent a Barium swallow evaluation as had UGI bleed and reflux, which were suspicious for possible esophageal dysfunction. Results demonstrated normal oropharyngeal swallowing mechanics, does cough with swallowing, and was not correlated to aspiration. Pt was discharge to psychiatric service on 04/07. She had 3-4 days worsening sore throat, dysphagia and 1 day worsening dysphonia, Rhino virus came back positive, hence patient transferred to medical floor 04/11. She is being managed for the following: Sore throat Dysphonia +Rhinovirus Positive - S/p intubation on 03/25 1 extubation on 03/31, s/p suctioning in hypopharynx for aspiration, OGT placed for trickle feeds which in ICU. Concern for trauma to larynx. - Symptoms including dysphonia, Lt sided neck lymphadenopathy, tenderness with palpation left neck worsening over the past 3 to 4 days [employer] - Concern for possible postextubation tonsillar abscess versus infectious symptoms - biofire/strep throat neg except rhinovirus. CT Soft tissue neck - no abscess/gas noted. Possible mild thickening of the aryepiglottic folds, a nonspecific finding. - Noted ENT was recommended by speech therapy on 04/04 and 04/05, as an outpatient, ENT not available in house- prior attending discussed with pulmonology here at [facility] who agrees with management as above, would be suspicious with traumatic intubation. - Will need ENT follow up on discharge - reports improving sore throat, improving voice, and being able to swallow better. Pt feels better. -c/w symptomatic mx. Schizoaffective disorder, Bipolar Type - Psychiatric medications as per psych team - 1:1 ordered, suicide precautions - History of suicidal ideation and attempt on 03/25, none presently, continue to recommend follow-up with group therapy, counseling, and will require outpatient follow-up with psych - Appears pt is off Calypta, trazodone and ativan - Lamictal has been increased to 100 mg QPM, gabapentin increased to 400 mg BID from 200 mg BID, - On estradiol 2 mg BID and finasteride 5 mg daily for transgender identity, possible that spironolactone is also for such - Cont Risperdal 0.25 mg BID Wound of Left Foot -Patient currently wearing a left hard boot status post ICU stay, reported by nursing as a blood blister, patient is ambulating with the use of a cane for balance assistance -Notes generalized deconditioning since ICU stay, encourage ambulation, PT and OT and to advance as tolerated - Pt does not appear volume overloaded - on spironolactone 50 mg BID and appears this was Rxd prior to admission in the ICU, monitor - PT/OT when appropriate. - Podiatry consult. Rheumatoid Arthritis - Hx of such - would recommend continues with rheumatology and/or PCP on discharge - Hx of being on Humira inj - unknown when last taken Morbid Obesity - BMI 35.4, diet and exercise should be encouraged DVT ppx: ambulatory Lines: 1 PIV FEN/GI: Regular diet CODE: FULL Admission and Anticipated Discharge Date Admission Date: April 11, 2023 Subjective Patient was seen and examined at bedside. Patient was sitting up in chair, on room air, NAD, reports improving sore throat and voice coming back, denies suicidal ideation, denies any other review of symptoms. Patient appears comfortable. Reports eating okay/denies any swallowing problems. Physical Exam Physical Exam: General: awake, alert, no apparent distress, Obesity class II, white male, identifies as female Head: Normocephalic, atraumatic ENT: PERRL, EOMI, no pharyngeal erythema or exudate, erythematous/mildly swollen throat on exam Chest: Clear to auscultation, on room air, no adventitious breath sounds Cardiac: Regular rate and rhythm, no murmur, no JVD, normal peripheral pulses, good capillary refill Abdominal: NABS x 4 quadrants, soft, nondistended, nontender to palpation, no rebound or guarding Extremities: Normal inspection, no peripheral edema or erythema, calfs nontender to palpation, + left hard boot Psych: Normal mood and affect Neuro: AAO x 3, strength intact bilaterally and rated 5/5, no motor deficits, speech is clear, no peripheral sensory deficits Results & Data Results & Data Vital Signs (Past 12 Hours) Vital Signs Temp Pulse Resp BP Pulse Ox O2 Del Method 04/13/23 07:55 Room Air 04/13/23 07:34 36.8 C 85 20 108/71 95 Room Air
--- NOTE | 2023-04-13 18:35 | Psychiatric Progress Note ---
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 She was started on risperidone and lamictal and so far has felt this is helping with mood symptoms and has not experienced any symptoms of psychosis. Suicide notes, which were part of the medical chart, suggest possible component of cluster B traits/interpersonal conflicts/externalization as well as unspecified trauma and stressor disorder, alcohol use and gender dysphoria as additional driving factors leading to suicide attempt and current psychiatric presentation. 06/13/2022: Appears much improved today. Spoke at some length about the suicide attempt and her thoughts of what she should have done differently leading up to it. Affect is fairly bright. At this point I think she's pretty close to her baseline and appropriate for discharge. 04/12/2023: Pt had actually been improving noticeably prior to transfer to medicine for isolation. She requested discharge to home due to not wanting to be in isolation, but that would certainly have been premature given the seriousness of the symptoms for which she'd been admitted. Is irritated at being made to remain in the hospital with droplet precautions but continues to deny current suicidal thoughts. She has been able to contract for safety in the hospital and, while she does need frequent checks, does not require 1:1 monitoring. She is tolerating current medication without evidence of adverse effects. While I don't think discharge right now would be appropriate, it seems fairly likely that she might be psychiatrically stable for discharge in a few days. (1) Schizoaffective disorder, bipolar type: (2) Rhinovirus infection: Plan 04/13/2023: * continue lamotrigine 100 mg daily - increased 04/10/2023 from prior to admission dose of 50 mg daily * continue risperidone 0.25 mg BID - prior to admission medication * recommend discharge to home in AM 04/12/2023: * continue lamotrigine 100 mg daily - increased 04/10/2023 from prior to admission dose of 50 mg daily * continue risperidone 0.25 mg BID - prior to admission medication Suicide Risk Level Suicide Risk Level: Moderate (q15 min suicide checks) Suicide Risk Level Comments: feels safe here, denies any current suicidal thoughts, agrees to notify staff if any suicidal thoughts recur Interval History Identifying Information Ethel LEZAMA is a 27-year-old transgender woman, she/her 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 Was transferred to the medical service for droplet isolation because of rhinovirus infection since such precautions cannot be implemented on the psychiatric unit. Chief Complaint "I'm feeling so much better". Subjective Subjective The patient was seen and assessed and interval progress reviewed in a multidisciplinary team meeting with psychiatric liaison nursing and social work. For details, see the "Impression" section. Overall I spent a total of 31 minutes for this consultation follow-up including review of chart records, review of test results, direct evaluation of the patient [id number], counseling the patient, risk assessment, discussion with the psychiatric liaison nurse, and documentation in the electronic health record. Physical Exam Psychiatric Orientation: alert, oriented to person, oriented to place, oriented to time and cooperative Apperance: appropriately dressed and appropriately groomed Eye Contact: + fair eye contact Motor Behavior: no abnormal motor movements Speech: normal rate/rhythm/volume of speech Affect: + irritable affect Mood: + irritable mood Thought Process: linear/logical thought process Thought Content: reality based without delusions Suicidal Thoughts: denies suicidal thoughts, denies suicidal plan and denies suicidal intent Homicidal Thoughts: denies homicidal thoughts Hallucinations: no auditory hallucinations and no visual hallucinations Cognition: recent memory grossly intact, remote memory grossly intact, attention grossly intact and language grossly intact Estimated Intelligence: consistent with education level Insight: + fair insight Judgment: + limited judgement Vital Signs (Past 24 Hours) Last Vital Signs Temp 36.7 C 04/13/23 17:21 Pulse 83 04/13/23 17:21 Resp 18 04/13/23 17:21 BP 125/80 04/13/23 17:21 Pulse Ox 97 04/13/23 17:21 O2 Del Method Room Air 04/13/23 17:21 Results & Data ([facility]) Laboratory Results Laboratory Results - last 24 hr 04/13/23 05:32 WBC 8.38 RBC 4.47 L Hgb 11.5 L Hct 36.5 L MCV 81.7 MCH 25.7 MCHC 31.5 L RDW Std Deviation 57.2 H RDW Coeff of Rene 19.3 H Plt Count 594 H MPV 9.4 Sodium 138 Potassium 4.0 Chloride 107 Carbon Dioxide 25 Anion Gap 6 BUN 15 Creatinine 0.91 Est Cr Clr Drug Dosing 182.3 Est GFR ( Amer) 135.3 Est GFR (Non-Af Amer) 116.7 BUN/Creatinine Ratio 16.5 Glucose 90 Calcium 9.3 Phosphorus 3.9 Magnesium 2.0 Current Inpatient Medications Current Inpatient Medications: Current Inpatient Medications Acetaminophen (Acetaminophen 325 Mg Tab) 650 mg PO Q6H PRN PRN Reason: Pain or Fever Stop: 05/12/23 17:01 Last Admin: 04/12/23 17:36 Dose: 650 mg Bacitracin/Polymyxin B Sulfate (Bacitracin/Polymyxin B Sulfate 90 Appln/28.4 Gm Tube) 1 appln EXT NOW ONE Stop: 04/13/23 23:46 Benzocaine (Benzocaine 20% (Orajel) 11.9 Gm Tube) 1 appln MT Q6H PRN PRN Reason: mouth irritation Stop: 05/11/23 23:50 Benzonatate (Benzonatate 100 Mg Capsule) 100 mg PO TID PRN PRN Reason: cough Stop: 05/12/23 08:59 Last Admin: 04/12/23 16:54 Dose: 100 mg Estradiol (Estradiol 1 Mg Tab) 2 mg PO BID KIKA Stop: 05/11/23 20:59 Last Admin: 04/13/23 08:02 Dose: 2 mg Finasteride (Finasteride 5 Mg Tab) 5 mg PO DAILY KIKA Stop: 05/12/23 08:59 Last Admin: 04/13/23 08:02 Dose: 5 mg Gabapentin (Gabapentin 400 Mg Cap) 400 mg PO BID KIKA Stop: 05/11/23 20:59 Last Admin: 04/13/23 08:02 Dose: 400 mg Guaifenesin (Guaifenesin 600 Mg Tabcr) 600 mg PO Q12H KIKA Stop: 05/11/23 17:59 Last Admin: 04/13/23 17:49 Dose: 600 mg Hydrocodone Bit/Homatropine Methylb (Hydrocodone/Homatropine Syrup 5mg/1.5mg 5ml Udp) 5 ml PO Q6H PRN PRN Reason: cough Stop: 04/25/23 17:53 Last Admin: 04/12/23 16:54 Dose: 5 ml Hydroxyzine HCl (Hydroxyzine Hcl 25 Mg Tab) 50 mg PO HSZ PRN PRN Reason: insomnia Stop: 05/11/23 23:50 Hydroxyzine HCl (Hydroxyzine Hcl 25 Mg Tab) 25 mg PO Q4H PRN PRN Reason: anxiety Stop: 05/11/23 23:50 Lamotrigine (Lamotrigine 100 Mg Tab) 100 mg PO QPM KIKA Stop: 05/11/23 20:59 Last Admin: 04/12/23 20:14 Dose: 100 mg Menthol (Cough Drop (Sugar Free) Andrez 24 Andrez/1 Box) 1 andrez BUCCAL 6XD PRN PRN Reason: sore throat Stop: 05/11/23 23:50 Pantoprazole Sodium (Pantoprazole 40 Mg Tab) 40 mg PO QAM KIKA Stop: 05/12/23 08:59 Last Admin: 04/13/23 08:02 Dose: 40 mg Risperidone (Risperidone 0.5 Mg Tablet) 0.25 mg PO BID KIKA Stop: 05/12/23 08:59 Last Admin: 04/13/23 08:02 Dose: 0.25 mg Spironolactone (Spironolactone 25 Mg Tab) 50 mg PO BID KIKA Stop: 05/11/23 20:59 Last Admin: 04/13/23 08:03 Dose: 50 mg Mental Health & Subst Abuse Tx Psychiatrist Name of Psychiatrist: Lizzy Mnoroy- Jacqiue Carrero Psychiatrist's Date Of Appointment With Psychiatric Provider: 05/13/2023 Time of Appointment with Psychiatrist: 8:20am Psychiatric Appointment Comment: [address] [place] [address] Therapist Name of Therapist: [facility]- Gaby Lira LCSW Therapist's Time of Therapist Appointment: made contact with therapist and asked to reach out to you directly Therapy Appointment Comment: [id number], [place], [place] Dean Of Graduate Studies Name of Dean Of Graduate Studies: Student Care and Advocacy Phone Number for Dean Of Graduate Studies: [phone] Time of Appointment with Dean Of Graduate Studies: family caseworker will reach out to schedule Case Management Appointment Comment: Zoom link will be sent to [employer] email Post Discharge Appointments Primary Care Physician Name Of Family Doctor/PCP: [facility] Date of Future Appointment with PCP: 04/20/2023 Time of Appointment with PCP: 2pm arrive at 1:45pm Provider Appointment Comment: [address] [facility] [address], [place] [address] Contact Information Discharge Discharge Address: [address] [place] [address]., [place], [place] [address]
[2023-04-13] MEDS: lamoTRIgine 100 MG TAB PO SCH (20:51)
[2023-04-13] MEDS ORDERED: BACITRACIN/POLYMYXIN B SULFATE 90 APPLN/28.4 GM TUBE EXT ONE (23:45)
[2023-04-14] MEDS: guaiFENesin 600 MG TABCR PO SCH (06:15)
[2023-04-14] MEDS: FINASTERIDE 5 MG TAB PO SCH (07:53)
[2023-04-14] MEDS: PANTOprazole 40 MG TAB PO SCH (07:53)
[2023-04-14] MEDS: GABAPENTIN 400 MG CAP PO SCH (07:53)
[2023-04-14] MEDS: SPIRONOLACTONE 25 MG TAB PO SCH (07:53)
[2023-04-14] MEDS: estradioL 1 MG TAB PO SCH (07:54)
[2023-04-14] MEDS: risperiDONE 0.5 MG TABLET PO SCH (07:54)
--- NOTE | 2023-04-14 08:10 | Orthopedic Consultation ---
Date of Consultation April 14, 2023 Assessment & Plan (1) Wound of left foot: Patient seen, evaluated, and treated. Left fifth and fourth dermal necrosis noted with etiology unknown. 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 As of now no intervention needed and necrosis may resolve with time. Intervention at later day has not been ruled out and this was discussed with Patient thoroughly including possible toe amputation. Patient is weight bearing as tolerated in surgical shoe. Patient will follow up as in clinic upon discharge for continued re-evaluation. Will continue to follow while Patient is in house. History of Present Illness Attending Physician: Skylar Hung MD History of Present Illness Patient is a 27 year old transgendered male who identifies as female and goes by Ethel who is seen at bedside this evening after recent re-admission. Patient has a past medical history significant for GERD, ANUEL CPAP intolerance, seronegative RA, schizoaffective disorder, anxiety/mood disorder, ADD, anosmia secondary to congenital nasal septal deviation status post surgery who initially presented to the [facility] for suicide attempt via ingestion of ativan and alcohol with acute metabolic encephalopathy due to drug overdose, alcohol and anoxia, acute respiratory failure with hypoxia and hypercarbia, and aspiration pneumonia. Patient was admitted to the ICU after intubation on 03/25. Patient was discharge to psychiatric service on 04/07. Patient was transferred back to medical floor 04/11. Allergies Allergy/AdvReac Type Severity Reaction Status Date / Time azithromycin [From Zithromax] Allergy Intermediate Rash Verified 03/24/23 23:31 Home Medications Medication Instructions Recorded Confirmed Type adalimumab 40 mg/0.4 mL 40 mg subcut DIRECTED 03/11/23 04/11/23 History subcutaneous pen kit (Humira(CF) Pen) finasteride 5 mg tablet 5 mg PO DAILY 03/11/23 04/11/23 History gabapentin 100 mg capsule 400 mg PO BID 03/11/23 04/11/23 History lamotrigine 25 mg tablet (Lamictal) 100 mg PO QPM 03/11/23 04/11/23 History spironolactone 50 mg tablet 50 mg PO BID 03/11/23 04/11/23 History estradiol 2 mg tablet 2 mg PO BID 03/24/23 04/11/23 History hydrocodone-homatropine 5 mg-1.5 5 ml PO Q6H PRN cough #473 mL 04/07/23 04/11/23 Rx mg/5 mL oral syrup (Hydromet) bacitracin 500 unit/gram topical 1 applic EXT BID 14 days #1 g 04/11/23 Rx ointment benzocaine 15 mg-menthol 3.6 mg 1 lino buccal 6XD PRN sore throat 04/11/23 Rx lozenges (Cepacol Sore Throat 30 days #16 ea (benzocaine-menthol)) benzocaine 20 % mucosal gel 1 applic MT Q6H PRN mouth 04/11/23 Rx (HurriCaine) irritation 30 days #1 g benzonatate 100 mg capsule 100 mg PO TID 30 days #90 caps 04/11/23 Rx guaifenesin 600 mg tablet, 600 mg PO Q12H 04/11/23 04/11/23 History extended release 12 hr (Mucinex) hydroxyzine HCl 25 mg tablet 25 mg PO Q4H PRN anxiety 30 days 04/11/23 Rx #30 tabs hydroxyzine HCl 25 mg tablet 50 mg (2 x 25 mg) PO HSZ PRN 04/11/23 Rx insomnia 30 days #30 tabs pantoprazole 40 mg tablet,delayed 40 mg PO QAM 30 days #30 tabs 04/11/23 Rx release risperidone 0.5 mg tablet 0.25 mg (1/2 x 0.5 mg) PO BID 30 04/11/23 Rx days #30 tabs Patient History Medical History (Updated 04/11/23 @ 17:30 by Maya Delgado PA-C) Sore throat Schizoaffective disorder, bipolar type Encounter for pre-operative examination Vermiculation Suicidal ideations Rheumatoid arthritis seronegative Surgical History (Updated 04/11/23 @ 00:10 by Ivan Huffman) No significant past surgical history Family History Other Back pain Social History Smoking Status: Never smoker Second Hand Exposure: No; Do You Dip or Chew Tobacco: No; Hx Alcohol Use: Yes Hx Substance Use: No Preferred Language: Kenyan Communication Ability: Effective Communication Ability Comment: unable to assess 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: No Beliefs That Will Affect Care: None marital status: Single Current Living Situation: Alone Current Living Situation Comment: college student current occupational status: student Feels Safe at Home: Yes Safety Concerns: Feels Safe At This Time Gender Identity: Transgender Female Assistive Devices: Cane Review of Systems Review of Systems: All systems reviewed & are unremarkable except as noted in HPI & below Physical Exam Constitutional: well developed, well nourished, cooperative and comfortable Eyes: normal visual prince by confrontation Neck: normal visual inspection and trachea midline Respiratory: normal respiratory effort Cardiovascular: Rate/Rhythm: regular rate and regular rhythm Vessels: posterior tibial pulses present and dorsalis pedis pulses present Musculoskeletal: Extremities: extremities normal to inspection Skin: + wound (left 4th and 5th toe dermal nec rosis with unknown depth) Neurologic: moves all extremities (Epicritic sensation intact) Psychiatric: Orientation: alert and oriented x 3 Results & Data Vital Signs (Past 12 Hours) Vital Signs Temp Pulse Resp BP Pulse Ox O2 Del Method 04/14/23 07:28 36.7 C 86 18 102/68 95 Room Air Diagnostic Findings Previous x-rays reviewed
--- NOTE | 2023-04-14 18:51 | Discharge Summary ---
Discharge Summary Date of Service April 14, 2023 Notes For Next Care Provider Medication Changes From Visit Lamictal 100mg at bedtime Gabapentin 400mg twice a day Risperdal 0.25mg twice a day Hydroxyzine 25mg as needed for anxiety (50mg at bedtime for sleep) Admission HPI Per Admitting Provider This is a 27 yo transgendered male who identifies as female and prefers the name Ethel. Medical history significant for GERD, ANUEL CPAP intolerance, seronegative RA, schizoaffective disorder, anxiety/mood disorder, ADD, anosmia secondary to congenital nasal septal deviation status post surgery who initially presented to the [facility] for suicide attempt via ingestion of ativan and alcohol with acute metabolic encephalopathy due to drug overdose, alcohol and anoxia, acute respiratory failure with hypoxia and hypercarbia, and aspiration pneumonia. Pt was admitted to the ICU after intubation on 03/25, had OGT tube placed for trickle feeding, and had suction to the hypopharynx due to chunks of food and pills noted with aspiration. Pt underwent flexible bronchoscopy with bronchial washing from right lung on 03/29. Extubated on 03/31. A course of IV unasyn x 7 days completed during course. Galactomannan Ag positive was noted, however Infectious disease said no treatment and monitored the patient. Pt had multiple electrolyte abnormalities which were repleted as needed. Pt also with hx of peptic ulcer disease and had an episode of bloody emesis which was treated with IV protonix and Gastroenterology saw the patient. Hgb was stable and there was not an indication for endoscopic evaluation. Pt was seen by speech therapy on 04/04. Patient had complaints of coughing for 4 months at that time, but has been worse s/p extubation, and with complaints of dysphonia. At that time recommendation was made by speech for ENT consultation to r/o damage to vocal fold and larynx via direct laryngoscopy as an outpatient. Pt also underwent a Barium swallow evaluation as had UGI bleed and reflux, which were suspicious for possible esophageal dysfunction. Results demonstrated normal oropharyngeal swallowing mechanics, does cough with swallowing, and was not correlated to aspiration. Pt was discharge to psychiatric service on 04/07. Pt had been doing well since that time until 3-4 days ago where she has progressively had worsening sore throat pain, and today has worsening hoarseness of voice and during my visit is only able to whisper. Pt has been afebrile. Pt notes has been difficult to swallow food due to pain but is tolerating liquids without any difficulty. Today was able to eat small bits of chicken and oatmeal raisin cookie at lunchtime but only had ice chips at breakfast due to pain. Pt has hydrocodeine syrup ordered and has been taking this about 1 hour before meals to help with pain. It is also prn cough, which has been present for several months, but worse s/p extubation. Admits to having some swelling of lymph nodes under the chin and down the left neck which is tender to touch. Patient admits to having seasonal allergies but typically has eye irritation, puffiness and itchiness which is not present today. Reports history of ear infections as a child, none as an adult, can recall 2 times of having ear tubes placed visits child as well. Denies any nasal drip, admits to slightly runny nose today, no sinus tenderness or pressure. Patient reports that it is difficult to take breaths through mouth at times, but denies any specific shortness of breath while sitting. Denies any fevers, sweats or chills. Upon Biofire results being Rhinovirus positive on 04/11, pt required transfer to the medical floor as is not able to stay on the psychiatric unit due to droplet precautions. Admission Exam Per Admitting Provider General: awake, alert, no apparent distress, + obese with BMI of 35.4, white male, identifies as female Head: Normocephalic, atraumatic ENT: PERRL, EOMI, no pharyngeal erythema or exudate, left tonsillar edema, + submandibular lymph node edema bilaterally, left posterior cervical chain lymphadenopathy with tenderness to palpation, mucous membranes moist, left jugular region without ecchymosis but has pinpoint area of scabbing, healing. Chest: Clear to auscultation, on room air, no adventitious breath sounds Cardiac: Regular rate and rhythm, no murmur, no JVD, normal peripheral pulses, good capillary refill Abdominal: NABS x 4 quadrants, soft, nondistended, nontender to palpation, no rebound or guarding Extremities: Normal inspection, no peripheral edema or erythema, calfs nontender to palpation, + left hard boot Psych: Normal mood and affect Neuro: AAO x 3, strength intact bilaterally and rated 5/5, no motor deficits, speech is clear, no peripheral sensory deficits Principal Dx & Hospital Course #1 = Principal Diagnosis (1) Rhinovirus infection: (2) Dysphonia: (3) Sore throat: (4) Wound of left foot: (5) Schizoaffective disorder, bipolar type: (6) Suicide attempt: 27 yo transgendered male who identifies as female and goes by Ethel, Medical history significant for GERD, ANUEL CPAP intolerance, seronegative RA, schizoaffective disorder, anxiety/mood disorder, ADD, anosmia secondary to congenital nasal septal deviation status post surgery who initially presented to the [facility] for suicide attempt via ingestion of ativan and alcohol with acute metabolic encephalopathy due to drug overdose, alcohol and anoxia, acute respiratory failure with hypoxia and hypercarbia, and aspiration pneumonia. Pt was admitted to the ICU after intubation on 03/25, had OGT tube placed for trickle feeding, and had suction to the hypopharynx due to chunks of food and pills noted with aspiration. Pt underwent flexible bronchoscopy with bronchial washing from right lung on 03/29. Extubated on 03/31. A course of IV unasyn x 7 days completed during course. Galactomannan Ag positive was noted, however Infectious disease said no treatment and monitored the patient. Pt had Left jugular venous access from ICU which is noted on exam, healing. Pt had multiple electrolyte abnormalities which were repleted as needed. Pt also with hx of peptic ulcer disease and had an episode of bloody emesis which was treated with IV protonix and Gastroenterology saw the patient. Hgb was stable and there was not an indication for endoscopic evaluation. Pt was seen by speech therapy on 04/04. Patient had complaints of coughing for 4 months at that time, but has been worse s/p extubation, and with complaints of dysphonia. At that time recommendation was made by speech for ENT consultation to r/o damage to vocal fold and larynx via direct laryngoscopy as an outpatient. Pt also underwent a Barium swallow evaluation as had UGI bleed and reflux, which were suspicious for possible esophageal dysfunction. Results demonstrated normal oropharyngeal swallowing mechanics, does cough with swallowing, and was not correlated to aspiration. Pt was discharge to psychiatric service on 04/07. She had 3-4 days worsening sore throat, dysphagia and 1 day worsening dysphonia, Rhino virus came back positive, hence patient transferred to medical floor 04/11. She was managed for the following: Sore throat Dysphonia +Rhinovirus Positive - S/p intubation on 03/25 1 extubation on 03/31, s/p suctioning in hypopharynx for aspiration, OGT placed for trickle feeds which in ICU. Concern for trauma to larynx. - Symptoms including dysphonia, Lt sided neck lymphadenopathy, tenderness with palpation left neck worsening over the past 3 to 4 days [employer] - Concern for possible postextubation tonsillar abscess versus infectious symptoms - biofire/strep throat neg except rhinovirus. CT Soft tissue neck - no abscess/gas noted. Possible mild thickening of the aryepiglottic folds, a nonspecific finding. - Noted ENT was recommended by speech therapy on 04/04 and 04/05, as an outpatient, ENT not available in house- prior attending discussed with pulmonology here at [facility] who agrees with management as above, would be suspicious with traumatic intubation. - Will need ENT follow up on discharge -Encouraged continued symptom management OTC Schizoaffective disorder, Bipolar Type - Psychiatric medications as per psych team - 1:1 ordered, suicide precautions - History of suicidal ideation and attempt on 03/25, none presently, continue to recommend follow-up with group therapy, counseling, and will require outpatient follow-up with psych - Appears pt is off Calypta, trazodone and ativan - Lamictal has been increased to 100 mg QPM, gabapentin increased to 400 mg BID from 200 mg BID, - On estradiol 2 mg BID and finasteride 5 mg daily for transgender identity, possible that spironolactone is also for such - Cont Risperdal 0.25 mg BID Wound of Left Foot -Patient currently wearing a left hard boot status post ICU stay, reported by nursing as a blood blister, patient is ambulating with the use of a cane for balance assistance -Notes generalized deconditioning since ICU stay, encourage ambulation, PT and OT and to advance as tolerated - Podiatry consult-follow up OP to be arranged, WBAT with boot Rheumatoid Arthritis - Hx of such - would recommend continues with rheumatology and/or PCP on discharge - Hx of being on Humira inj - unknown when last taken Morbid Obesity - BMI 35.4, diet and exercise should be encouraged On day of discharge, patient denied any new concerns, reports feeling well enough to go home, denied any active SI/HI. Discharge Exam Constitutional WD/WN, vitals as above Respiratory normal respiratory effort, lungs clear to auscultation Cardiovascular RRR, no murmur, no edema Musculoskeletal no cyanosis or clubbing, extremities motor strength 5/5 left foot in surgical boot Updated Medication List Medication Instructions Recorded Confirmed Type finasteride 5 mg tablet 5 mg PO DAILY 03/11/23 04/11/23 History spironolactone 50 mg tablet 50 mg PO BID 03/11/23 04/11/23 History estradiol 2 mg tablet 2 mg PO BID 03/24/23 04/11/23 History hydrocodone-homatropine 5 mg-1.5 5 ml PO Q6H PRN cough #473 mL 04/07/23 04/11/23 Rx mg/5 mL oral syrup (Hydromet) bacitracin 500 unit/gram topical 1 applic EXT BID 14 days #1 g 04/11/23 Rx ointment benzocaine 15 mg-menthol 3.6 mg 1 lino buccal 6XD PRN sore throat 04/11/23 Rx lozenges (Cepacol Sore Throat 30 days #16 ea (benzocaine-menthol)) benzocaine 20 % mucosal gel 1 applic MT Q6H PRN mouth 04/11/23 Rx (HurriCaine) irritation 30 days #1 g benzonatate 100 mg capsule 100 mg PO TID 30 days #90 caps 04/11/23 Rx guaifenesin 600 mg tablet, 600 mg PO Q12H 04/11/23 04/11/23 History extended release 12 hr (Mucinex) pantoprazole 40 mg tablet,delayed 40 mg PO QAM 30 days #30 tabs 04/11/23 Rx release gabapentin 100 mg capsule 400 mg (4 x 100 mg) PO BID 30 days 04/14/23 Rx #240 caps hydroxyzine HCl 25 mg tablet 25 mg PO Q4H PRN anxiety 30 days 04/14/23 Rx #30 tabs hydroxyzine HCl 25 mg tablet 50 mg (2 x 25 mg) PO HSZ PRN 04/14/23 Rx insomnia 30 days #30 tabs lamotrigine 25 mg tablet (Lamictal) 100 mg (4 x 25 mg) PO QPM 30 days 04/14/23 Rx #120 tabs risperidone 0.5 mg tablet 0.25 mg (1/2 x 0.5 mg) PO BID 30 04/14/23 Rx days #30 tabs Hospital Stay Data Consultations 04/12/23 08:29 Consult Psychiatry Routine 04/13/23 15:36 Consult Podiatry Routine Pending Results Patient Have Any Pending Studies at Discharge: No Discharge Instructions Given to Patient (Per Discharging Provider) You were transferred back to medical service due to being positive for rhinovirus. This virus can be irritating and treatment is based around symptom control. It was also noted that you had "blood blister" on your left toes for which podiatry evaluated. They recommend surgical shoe and weight bearing as you tolerate on that foot. They will arrange follow up with you as an outpatient. You will need follow up with podiatry (as mentioned), your psychiatry team, and PCP. Please continue all medications as directed by Psych and PCP: Lamictal 100mg at bedtime Gabapentin 400mg twice a day Risperdal 0.25mg twice a day Hydroxyzine 25mg as needed for anxiety (50mg at bedtime for sleep) Total Time Total Time Spent Total Time Spent (In Minutes): 45
== END 2023-04-14 15:23 | disposition home or self-care (01) | DRG 866 ==
LOC: 3N 17:51 → SUATTDRO 17:51

== ENCOUNTER 2023-04-30 17:44 | Inpatient (IN) ==
--- NOTE | 2023-04-30 17:58 | ED Triage Note ---
Date of Service April 30, 2023 Provider in Triage Author: Bronwyn Winchester History of Present Illness This patient was briefly evaluated while in triage. An abbreviated physical exam was performed. This patient is a 27-year-old Male who presents to the ED for evaluation of wound to left foot 5th digit. Pt states the wound occurred while the patient was intubated, wound has worsened over the last two days. Physical Exam CONSTITUTIONAL: in no acute pain or distress, resting comfortably SKIN: pink, warm, dry CARDIAC: regular rate and rhythm RESPIRATORY: in no respiratory distress, lungs clear to auscultation ABDOMEN: no TTP MSK: 5/5 strength throughout NEURO: no neuro deficits, alert and oriented x 3 Initial orders for labs and / or imaging were placed and patient was placed in the waiting area until a bed is available. Please see further documentation for the full ED course.
[2023-04-30 18:42] LABS: Basophils # (auto) 0.05 K/uL (0.00-0.20); Basophils % (auto) 0.6 %; Eosinophils % (auto) 1.2 %; Hematocrit (blood only) 39.3 % (42.0-52.0); Immature Granulocytes # (auto) 0.02 K/uL (0.01-0.20); Immature Granulocytes % (auto) 0.2 %; Lymphocytes # (auto) 2.48 K/uL (1.20-3.40); Lymphocytes % (auto) 29.8 %; Mean Corpuscular Hemoglobin 26.5 pg (25.0-34.0); Mean Corpuscular Hgb Conc 33.1 g/dL (32.0-36.0); Mean Corpuscular Volume 80.2 fL (80.0-100.0); Monocytes # (auto) 0.76 K/uL (0.11-0.59); Monocytes % (auto) 9.1 %; Neutrophils % (auto) 59.1 %; Platelet Count 343 K/uL (130-400); RDW Coefficient of Variation 18.9 % (11.5-14.5); RDW Standard Deviation 55.4 fL (36.4-46.3); White Blood Count 8.31 K/ul (4.8-10.8)
--- NOTE | 2023-04-30 18:52 | XRay Report ---
XR foot LT min 3V routine CLINICAL HISTORY: 5th digit necrosis COMPARISON: Left foot radiographs April 06, 2023. FINDINGS: Alignment of the left foot is anatomic. Tarsometatarsal joints are intact. Marked soft tis srikanth swelling of the left fifth toe is again noted. There has been interval development of suspected e rosion of the medial distal aspect of the proximal phalanx of the left fifth toe. There are also poss ible erosions of the middle and distal phalanges of the left fifth toe. No acute fractures are identi fied. IMPRESSION: Redemonstration of marked soft tissue swelling of the left fifth toe. Suspected interval development of erosions of the left fifth proximal, middle and distal phalanges, as described above. The findings are suspicious for acute osteomyelitis. MRI could be obtained as indicated. ACT 112: Negative or not required by law. Electronically signed by: Cuate You M.D. 04/30/2023 6:50 PM
[2023-04-30 19:00] LABS: Alanine Aminotransferase 52 U/L (7-52); Albumin Globulin Ratio 1.2 (0.9-2); Alkaline Phosphatase 91 U/L (34-104); Anion Gap 9 (3-11); Aspartate Aminotransferase 20 U/L (13-39); Bilirubin,Total 0.5 mg/dl (0.2-1.0); Blood Urea Nitrogen 13 mg/dl (6-23); Calcium 9.1 mg/dl (8.6-10.3); Carbon Dioxide 20 mmol/L (21-32); Chloride 105 mmol/L (98-107); Est GFR (African American) 131.8 ml/min; Est GFR (Non-African American) 113.7 ml/min; Globulin 3.4 gm/dl (2.5-4.0); Glucose 110 mg/dl (70-99(Fasting)); Potassium 3.9 mmol/L (3.5-5.1); Sodium 134 mmol/L (136-145); Total Protein 7.4 gm/dl (6.0-8.3)
[2023-04-30] MEDS ORDERED: SODIUM CHLORIDE 0.9% 1,000 ML IV ONE (20:28)
[2023-04-30] MEDS ORDERED: PIPERACILLIN/TAZOBACTAM 4.5 GM/120 ML BAG IV ONE (20:28)
--- NOTE | 2023-04-30 20:38 | Emergency Department Note ---
Impression & Plan Infection of left foot, Osteomyelitis ED Provider Note NAME: JAVAD LEZAMA AGE: 27 SEX: M : 1995 ARRIVES VIA: Walk-In INFORMANT: [Patient] ED PROVIDER(S): [Sky Shepherd MD] CHIEF COMPLAINT: Infection HISTORY OF PRESENT ILLNESS: The patient is a 27-year-old male who states that he developed a wound on his left fifth toe while he was hospitalized last month. He states that he has been wearing a boot. He was on antibiotics while in the hospital but is not on antibiotics currently. In the last 3 days, he has had increasing redness and pain and some discharge from the left fifth toe. He did see a wound center doctor a few days ago and was told the toe would likely need an amputation. Patient states that he has felt washed out and fatigued. He feels very weak. No fever, no cough or congestion or shortness of breath. PMHx/PSHx/Social Hx: See Below PHYSICAL EXAM: GENERAL: Patient is in no acute distress. HEENT: No acute trauma, normocephalic atraumatic, mucous membranes moist, no nasal congestion. NECK: No stridor, no adenopathy, no meningismus, trachea is midline. LUNGS: Clear to auscultation bilaterally, no wheeze, no rhonchi, breath sounds equal. HEART: Without murmurs gallops or rubs, regular rate and rhythm. ABDOMEN: Soft, nontender, no peritonitis. EXTREMITIES: No cyanosis. The patient does have a necrotic appearing left fifth toe. There is a foul odor and some discharge noted. There is erythema spreading up the foot with some warmth. The entire area is tender with palpation. NEUROLOGIC: Oriented x 3, no acute motor or sensory deficits, no focal weakness. SKIN: No jaundice, no diaphoresis. Pale. DIFFERENTIAL DIAGNOSIS: Cellulitis, osteomyelitis, necrotizing fasciitis, hematoma, abscess, failed outpatient management, among others. EMERGENCY DEPARTMENT PROCEDURES: MEDICAL DECISION MAKING: There is no leukocytosis. The patient does have a very mild anemia. There was a normal platelet count. Sed rate was elevated at 41 consistent with inflammation/infection. No renal failure or significant electrolyte abnormality. Lactic acid level is not elevated making severe sepsis less likely. No concerning liver enzyme elevation. C-reactive protein and procalcitonin levels were both normal. Left foot film does show findings of osteomyelitis. Left foot CT confirms osteomyelitis. On exam, the patient's left foot wound had a foul odor, a culture was sent. The patient received IV Zosyn as antibiotic coverage. He was given 1 L of IV saline. Patient is going to require a hospital stay. He likely will require surgical intervention. I did speak with the patient and case management, the on-call hospitalist was consulted. Prior/Outside records/notes reviewed: Discharge note from 04/14/2023 discussing his admission for respiratory failure, rhinovirus infection, left foot wound and suicide attempt. Imaging/x-ray results per my interpretation: Left foot film shows what appears to be some osteomyelitis of the left fifth toe. Chronic Medical/Social conditions affecting care: Schizoaffective disorder Care/Management discussed with: Case management, the on-call hospitalist. Level of care consideration(s): After review of the information above and other included data: --I believe the patient requires escalation of care to admission DISPOSITION: Admission with orthopedic consult Past Med/Surg History Medical History Sore throat Schizoaffective disorder, bipolar type Encounter for pre-operative examination Vermiculation Suicidal ideations Rheumatoid arthritis seronegative Surgical History (Updated 04/11/23 @ 00:10 by Ivan Huffman) No significant past surgical history Family History Other Back pain Social History Smoking Status: Never smoker Second Hand Exposure: No; Do You Dip or Chew Tobacco: No; Hx Alcohol Use: Yes Hx Substance Use: No Preferred Language: Divehi Communication Ability: Effective Communication Ability Comment: unable to assess currently intubated Facilities And Grounds Director Required: No Beliefs That Will Affect Care: None marital status: Single Current Living Situation: Alone Current Living Situation Comment: college student current occupational status: student Feels Safe at Home: Yes Gender Identity: Transgender Female Assistive Devices: Cane Allergies Allergies Allergy/AdvReac Type Severity Reaction Status Date / Time azithromycin [From Zithromax] Allergy Intermediate Rash Verified 04/30/23 22:18 Home Meds Home Medications Medication Instructions Recorded Confirmed estradiol 2 mg tablet 2 mg PO BID 04/30/23 04/30/23 finasteride 5 mg tablet 5 mg PO DAILY 04/30/23 04/30/23 gabapentin 100 mg capsule 400 mg PO BID 04/30/23 04/30/23 hydroxyzine HCl 25 mg tablet 25 mg PO Q4 PRN Anxiety 04/30/23 04/30/23 hydroxyzine HCl 25 mg tablet 50 mg PO HS PRN Insomnia 04/30/23 04/30/23 lamotrigine 25 mg tablet 100 mg PO QPM 04/30/23 04/30/23 omeprazole 40 mg capsule,delayed 40 mg PO QAM 04/30/23 04/30/23 release risperidone 0.5 mg tablet 0.25 mg PO BID 04/30/23 04/30/23 spironolactone 50 mg tablet 50 mg PO BID 04/30/23 04/30/23 Results & Data (ED) Vital Signs Vital Signs - 24 hr 04/30/23 17:56 04/30/23 20:59 04/30/23 22:00 Temperature 36.6 C Temperature Source Temporal Artery Scan Pulse Rate 101 H Pulse Rate [Finger] 87 85 Respiratory Rate 20 19 18 Respiratory Effort / Characteristics Non-Labored Respiratory Depth Normal Blood Pressure 118/78 Blood Pressure [Right Arm] 127/75 127/92 Blood Pressure Mean 91 Blood Pressure Mean [Right Arm] 92 103 Pulse Oximetry 97 98 99 Oxygen Delivery Method Room Air Room Air Sepsis Recent Fever Within 48 Hours No Sepsis New/Unexplained Change in Mental Status No Sepsis Action Taken by Nursing No Action Required Home Medications Current Medication List: was personally reviewed by me Laboratory Data Attestation: I reviewed the patient's lab results. 04/30/23 18:24 04/30/23 18:24 Lab Results 04/30/23 04/30/23 Range/Units 18:08 18:24 WBC 8.31 (4.8-10.8) K/ul RBC 4.90 (4.70-6.10) M/uL Hgb 13.0 L (14.0-18.0) g/dl Hct 39.3 L (42.0-52.0) % MCV 80.2 (80.0-100.0) fL MCH 26.5 (25.0-34.0) pg MCHC 33.1 (32.0-36.0) g/dL RDW Std Deviation 55.4 H (36.4-46.3) fL RDW Coeff of Rene 18.9 H (11.5-14.5) % Plt Count 343 (130-400) K/uL MPV 10.0 (9.4-12.4) fL Immature Gran % (Auto) 0.2 % Neut % (Auto) 59.1 % Lymph % (Auto) 29.8 % Emanuel % (Auto) 9.1 % Eos % (Auto) 1.2 % Baso % (Auto) 0.6 % Neut # (Auto) 4.90 (1.40-6.50) K/uL Lymph # (Auto) 2.48 (1.20-3.40) K/uL Emanuel # (Auto) 0.76 H (0.11-0.59) K/uL Eos # (Auto) 0.10 (0.00-0.50) K/uL Baso # (Auto) 0.05 (0.00-0.20) K/uL Immature Gran # (Auto) 0.02 (0.01-0.20) K/uL ESR 41 H (0-15) mm/hr Sodium 134 L (136-145) mmol/L Potassium 3.9 (3.5-5.1) mmol/L Chloride 105 (98-107) mmol/L Carbon Dioxide 20 L (21-32) mmol/L Anion Gap 9 (3-11) BUN 13 (6-23) mg/dl Creatinine 0.93 (0.6-1.4) mg/dl Est Cr Clr Drug Dosing Not Reportable Est GFR ( Amer) 131.8 ml/min Est GFR (Non-Af Amer) 113.7 ml/min BUN/Creatinine Ratio 14.0 (10-20) Glucose 110 H (70-99(Fasting)) mg/dl Lactate 1.2 (0.4-2.0) mmol/L Calcium 9.1 (8.6-10.3) mg/dl Total Bilirubin 0.5 (0.2-1.0) mg/dl AST 20 (13-39) U/L ALT 52 (7-52) U/L Alkaline Phosphatase 91 (34-104) U/L C-Reactive Protein < 0.50 (0-0.5) mg/dl Total Protein 7.4 (6.0-8.3) gm/dl Albumin 4.0 (3.4-5.0) gm/dl Globulin 3.4 (2.5-4.0) gm/dl Albumin/Globulin Ratio 1.2 (0.9-2) Procalcitonin < 0.05 (0-0.5) ng/ml Administered Medications Discontinued Medications Sodium Chloride (Nss) 1,000 mls @ 999 mls/hr IV .Q1H1M ONE Stop: 04/30/23 21:28 Last Infusion: 04/30/23 22:11 Dose: Infused Documented By: Admin: 04/30/23 20:55 Dose: 999 mls/hr Documented By: SANDI Piperacillin Sod/Tazobactam Sod (Zosyn) 4.5 gm in 120 mls @ 240 mls/hr IV NOW ONE Stop: 04/30/23 20:57 Last Infusion: 04/30/23 21:29 Dose: Infused Documented By: Admin: 04/30/23 20:54 Dose: 240 mls/hr Documented By: SANDI Imaging Data Radiologist's Impression: Foot X-Ray 04/30/23 17:58 XR foot LT min 3V routine CLINICAL HISTORY: 5th digit necrosis COMPARISON: Left foot radiographs April 06, 2023. FINDINGS: Alignment of the left foot is anatomic. Tarsometatarsal joints are intact. Marked soft tissue swelling of the left fifth toe is again noted. There has been interval development of suspected erosion of the medial distal aspect of the proximal phalanx of the left fifth toe. There are also possible erosions of the middle and distal phalanges of the left fifth toe. No acute fractures are identified. IMPRESSION: Redemonstration of marked soft tissue swelling of the left fifth toe. Suspected interval development of erosions of the left fifth proximal, middle and distal phalanges, as described above. The findings are suspicious for acute osteomyelitis. MRI could be obtained as indicated. ACT 112: Negative or not required by law. Electronically signed by: Cuate You M.D. 04/30/2023 6:[address] 04/30/23 20:40 Exam(s): CT LEFT FOOT Without Contrast EXAM: CT Left Lower Extremity Without Intravenous Contrast, Foot CLINICAL HISTORY: Reason for exam: osteomyelitis. TECHNIQUE: Axial computed tomography images of the left foot without intravenous contrast. CTDI is 24.91 mGy and DLP is 515.44 mGy-cm. Automated exposure control was utilized for the study. A dose lowering technique was utilized adhering to the principles of ALARA. COMPARISON: No relevant prior studies available. FINDINGS/IMPRESSION: Ulcer along the plantar, lateral aspect of the fifth metatarsal. Focal osteopenia in the fifth metatarsal head, concerning for early osteomyelitis. This should be confirmed with MRI. Severe soft tissue skin thickening and phlegmonous change in the fifth toe, consistent with infection. No fluid collection or abscess. Electronically signed by: Alexandre Murillo MD 04/30/23 22:50 PM Discharge Plan Visit Data Chief Complaint: Infection, Wound Stated Complaint: WOUND ON TOE/NUCROTIC/INFECTED ED Provider: Sky Shepherd Discharge Problem: Infection of left foot, Osteomyelitis Patient Disposition: Admitted As Inpatient Condition: Fair Discharge Instructions Interventions: ED Discharge Assessment Last Done: 05/01/23 00:38 Discharge Problem: Osteomyelitis Qualifiers: Osteomyelitis type: unspecified type Osteomyelitis location: foot Laterality: l eft Qualified Code(s): M86.9 - Osteomyelitis, unspecified
[2023-04-30 20:57] LABS: C Reactive Protein < 0.50 mg/dl (0-0.5)
--- NOTE | 2023-04-30 22:50 | CT Scan Report ---
Exam(s): CT LEFT FOOT Without Contrast EXAM: CT Left Lower Extremity Without Intravenous Contrast, Foot CLINICAL HISTORY: Reason for exam: osteomyelitis. TECHNIQUE: Axial computed tomography images of the left foot without intravenous contrast. CTDI is 24.91 mGy and DLP is 515.44 mGy-cm. Automated exposure control was utilized for the study. A dose lowering technique was utilized adhering to the principles of ALARA. COMPARISON: No relevant prior studies available. FINDINGS/IMPRESSION: Ulcer along the plantar, lateral aspect of the fifth metatarsal. Focal osteopenia in the fifth metatarsal head, concerning for early osteomyelitis. This should be confirmed with MRI. Severe soft tissue skin thickening and phlegmonous change in the fifth toe, consistent with infection. No fluid collection or abscess. Electronically signed by: Alexandre Murillo MD 04/30/23 22:50 PM
--- OUTSIDE RECORDS SUMMARY | 2023-04-30 23:36 | External Medical Summary | Summary of Care ---
Author Name Unknown Organization [facility] Address [address] [place] [address] Phone [phone] Care Team Providers Care Heat Regulator Name Role Phone Renata Waters MD Primary Care Provider [phone] Reason for Visit * Reason Onset Date Comments Appointment 04/28/2023 Encounter Details Date Type Department Care Team (Late st Contact Info) Description 04/28/2023 Telephone Otolaryngology [facility] [address] [place] [address] Services, Scheduling [address] [place] [address] Appointment Allergies Active Allergy Reactions Criticality Noted Date Comments Azithromycin 02/07/2021 rash documented as of this encounter (statuses as of 04/29/2023) Medications Medication Sig Dispensed Refills Start Date End Date Status Cetirizine HCl 10 MG Oral Tablet Take 1 Tablet by mouth in the morning. 0 02/07/2021 Active Humira Pen 40 MG/0.4ML Subcutaneous Pen-injector Kit (Adalimumab) Inject 0.4 mL under the skin every 14 days. 2 Each 11 06/22/2022 Active Gabapentin 100 MG Oral Capsule (Neurontin) Take 4 Capsules by mouth in the morning and 4 Capsules in the evening. 0 Active lamoTRIgine 25 MG Oral Tablet (LaMICtal)Indications :in pm Take 4 Tablets by mouth at bedtime. 0 07/30/2022 Active [place]-3 1000 MG Oral Capsule Take 2 Capsules by mouth in the morning and 2 Capsules before bedtime. 2 caps three times daily. 0 Active Omeprazole 40 MG Oral Capsule Delayed Release (PriLOSEC)Indications :Gastroesophageal reflux disease with esophagitis and hemorrhage take 1 capsule by mouth every morning 90 Capsule 0 03/19/2023 Active Estradiol 2 MG Oral Tablet Take 1 Tablet by mouth in the morning and 1 Tablet before bedtime. 0 04/14/2023 Active Finasteride 5 MG Oral Tablet (Proscar) Take 1 Tablet by mouth in the morning. 0 04/16/2023 Active hydrOXYzine HCl 25 MG Oral Tablet Take 2 Tablets by mouth at bedtime. 0 04/14/2023 Active risperiDONE 0.5 MG Oral Tablet (RisperDAL) Take 0.5 Tablets by mouth in the morning and 0.5 Tablets before bedtime. 0 04/14/2023 Active Spironolactone 50 MG Oral Tablet (Aldactone) Take 1 Tablet by mouth in the morning and 1 Tablet before bedtime. 0 04/16/2023 Active documented as of this encounter (statuses as of 04/29/2023) Active Problems Problem Noted Date Diagnosed Date BMI 40.0-44.9, adult 11/30/2022 Encounter for therapeutic drug monitoring 2021 Schizophrenia 04/29/2021 BMI 38.0-38.9,adult 02/07/2021 Obstructive sleep apnea, adult 09/27/2017 RONI (generalized anxiety disorder) 05/22/2015 Rheumatoid arthritis of [facility] sites with negative rheumatoid factor Gastroesophageal reflux disease without esophagi tis Allergic sinusitis documented as of this encounter (statuses as of 04/29/2023) Immunizations Name Administration Dates Next Due COVID-19 mRNA, LNP-s, No Pre serve, 2-Dose Series ([employer].io) 01/22/2021,08/05/2020,07/22/2020 SEASONAL INFLUENZA, PF, 6 M & Above, IM , (FLULAVAL or FLUZONE) 01/20/2023,02/07/2021 Seasonal Influenza Virus Vac cine, Unspecified Formulation 02/07/2021 TDAP (age 10 and older)(Boostrix) 01/20/2023 documented as of this encounter Social History [...] Telephone Encounter - Elizabet Wren OSA - 04/29/2023 8:41 AM EST Please see other TE Thank you Elizabet * Telephone Encounter - La Jorgensen OSA - 04/28/2023 5:39 PM EST Pt called in stating he received a call about there being a sooner appointment with a different provider. I don't see any appointments sooner than June. Pt would like to talk to someone about this. Please contact pt at [phone]. Pt stated the only day he can't do, is next Wednesday. documented in this encounter Plan of Treatment Upcoming Encounters Date Type Department Care Team (Late st Contact Info) Description 05/05/2023 12:40 PM EST Office Visit Wound Care, [facility] [address] [facility] [address] Jacquie Peguero DPM [address] [facility] [place] [address] 05/25/2023 2:00 PM EST Office Visit General Internal Medicine [facility] [place] [address] [place] [address] Renata Waters MD [address] [place] [address] [place] [address] 06/30/2023 3:00 PM EST Office Visit Otolaryngology [facility] [address] [place] [address] Regla Cherry PA-C [address] [place] [address] 09/28/2023 4:00 PM EDT Office Visit Rheumatology [place] [id number] [facility] [place] [address] Brando Degroot MD [facility] [employer] [place] [address] Health Maintenance Due Date Last Done Comments Hepatitis B (1 of 3 - 3-dose series) 1997 Pneumococcal Vaccine: Pediatrics (0 to 5 Years) and At-Risk Patients (6 to 64 Years) (1 - PCV) 2003 GARDASIL-HPV IMMUNIZATION SERIES (1 - Male 2-dose series) 2008 Depression Screening 2009 HIV Screening 2012 COVID-19 Vaccine (4 - 2022-2 4 season) 2023 01/22/2021, 08/05/2020, 07/22/2020 DTaP,Tdap,and Td Vaccines (2 - Td or Tdap) 01/20/2033 01/20/2023 Influenza Vaccine (FLU shot) Completed , 02/07/2021, 02/07/2021 MENINGOCOCCAL (MENACTRA/MENVEO) Aged Out No longer eligible b ased on patient's age to complete this topic documented as of this encounter Medical Devices Not on filedocumented as of this encounter Care Teams Heat Regulator Relationship Specialty Start Date End Date Renata Waters MD [address] [facility] [place], [place] [address] PCP - General Internal Medicine 05/10/21 documented as of this encounter
--- OUTSIDE RECORDS SUMMARY | 2023-04-30 23:36 | External Medical Summary | Summary of Care ---
Author Name Unknown Organization [facility] Address [address] [place] [address] Phone [phone] Care Team Providers Care Vegetable Ii Farmworker Name Role Phone Renata Waters MD Primary Care Provider Encounter Details Date Type Department Care Team (Latest Contact Info) Description 04/28/2023 3:10 PM EST - 04/28/2023 11:59 PM EST Hospital Encounter Radiology, [address] [address] Arrived Discharge Disposition: Home - Self Care Allergies Active Allergy Reactions Criticality Noted Date [...] by mouth at bedtime. 0 07/30/2022 Active [place]-3 1000 MG Oral Capsule Take 2 Capsules [...] (generalized anxiety disorder) 05/22/2015 Rheumatoid arthritis of [facility] sites with negative rheumatoid factor Gastroesophageal reflux disease without esophagi tis Allergic sinusitis documented as of this encounter (statuses as of 04/29/2023) Immunizations Name Administration Dates Next Due COVID-19 mRNA, LNP-s, No Pre serve, 2-Dose Series ([employer]) 01/22/2021,08/05/2020,07/22/2020 SEASONAL INFLUENZA, PF, 6 M & [...] on file documented as of this encounter Plan of Treatment Upcoming Encounters Date Type Department Care Team (Late st Contact Info) Description 05/05/2023 12:40 PM EST Office Visit Wound Care, [address] [place] [address] Jacquie Peguero DPM [address] [place] [address] 05/10/2023 2:20 PM EST Office Visit Otolaryngology [facility] [address] [place] [address] Tera Salgado PA-C [address] [place] [address] 05/25/2023 2:00 PM EST Office Visit General Internal Medicine [facility] [address] [facility] [place] [address] Renata Waters MD [address] [facility] [place] [address] 09/28/2023 4:00 PM EDT Office Visit Rheumatology [place] [address] [facility] [place] [address] Brando Degroot MD [facility] [employer] [place], [place] [address] Health Maintenance Due Date Last Done Comments [...] Not on filedocumented as of this encounter Procedures Procedure Name Priority Date/Time Associated Diagnosis Comments XR TOES 2 OR MORE VIEWS Routine 04/28/2023 3:18 PM EST Necrotic toes (HCC) documented in this encounter Results * XR TOES 2 OR MORE VIEWS (04/28/2023 3:18 PM EST) Anatomical Region Laterality Modality Lower Extremity Digital Radiogra phy 04/28/2023 4:20 PM EST Narrative 04/28/2023 4:17 PM EST EXAM: XR TOES 2 OR MORE VIEWS HISTORY: 5th toe wound COMPARISON: None. FINDINGS: No acute fracture or dislocation. No focal osteolysis or sclerosis. Preserved joint spaces. Mild soft tissue swelling about the 5th toe with 3 mm lucency of the distal tip, which may represent skin defect, amenable to direct inspection. IMPRESSION: No acute fracture or dislocation. No focal osteolysis or sclerosis to suggest chronic osteomyelitis. Procedure Note Veto Fernandez MD - 04/28/2023 EXAM: XR TOES 2 OR MORE VIEWS HISTORY: 5th toe wound COMPARISON: None. FINDINGS: No acute fracture or dislocation. No focal osteolysis or sclerosis.Preserved joint spaces. Mild soft tissue swelling about the 5th toe with3 mm lucency of the distal tip, which may represent skin defect, amenableto direct inspection. IMPRESSION: No acute fracture or dislocation. No focal osteolysis or sclerosis tosuggest chronic osteomyelitis. Jacquie Peguero DPM RADIOLOGY (RAD GENERAL) documented in this encounter Care Teams Vegetable Ii Farmworker Relationship Specialty Start Date End Date Mainali, Renata, MD [address] [place] [address] PCP - General Internal Medicine 05/10/21 documented as of this encounter
--- OUTSIDE RECORDS SUMMARY | 2023-04-30 23:36 | External Medical Summary | Summary of Care ---
Author Name Unknown Organization [facility] Address [address] [place] [address] Phone [phone] Care Team Providers Care Family Literacy Coordinator Name Role Phone Renata Waters MD Primary Care Provider [phone] Reason for Referral * Evaluate & Treat - Unlimited Visits (Within 10 days (routine)) - Pending Review Specialty Diagnoses / Procedures Referred By Delia amaya Referred To Contact Otolaryngology Diagnoses Vocal cord dysfunction Gregoria Blair MD [facility] [place] [address] Referral ID Status Reason Start Date Expiration Date Visits Requested Visits Authorized [id number] Pending Review Specialty Services Required [phone] Question Answer Referral Priority Within 10 days (routine) Where should this appointment be scheduled? [facility] Reason for Referral Throat Conditions Specific Condition: Dysphagia (swallowing concerns) Comments Recent post intubation, was at [facility], suicidal attempt, post extubation, dysphonia, aspiration. Rule out Vocal cord damage. Thanks. * Evaluate & Treat - Unlimited Visits (Within 10 days (routine)) - Pending Review Specialty Diagnoses / Procedures Referred By Delia amaya Referred To Contact Podiatry Diagnoses Pain of toe of left foot Gregoria Blair MD [address] [place] [address] Referral ID Status Reason Start Date Expiration Date Visits Requested Visits Authorized [id number] Pending Review Specialty Services Required [phone] Question Answer Referral Priority Within 10 days (routine) Where should this appointment be scheduled? [facility] Which condition are you referring this patient for? Wound or ulcer Comments Recent hospital admission. Left toe pain, rule out infection. Thanks. Reason for Visit * Reason Onset Date Comments Hospital Follow-Up Left small to e-wants it checked. Needs to follow up with podiatry and ENT Hospital Follow-Up 04/20/2023 Encounter Details Date Type Department Care Team (Late st Contact Info) Description 04/20/2023 2:00 PM EST Office Visit General Internal Medicine [facility] [address] [place] [address] Gregoria Blair MD [address] [facility] [place] [address] Suicidal behavior with attempted self-injury ([facility])*; Hospital discharge follow-up; URTI (acute upper respiratory infection); Rheumatoid arthritis of multiple sites with negative rheumatoid factor ([facility]); BMI 38.0-38.9,adult; Schizophrenia, unspecified type ([facility]); RONI (generalized anxiety disorder); Obstructive sleep apnea, adult; Gastroesophageal reflux disease without esophagitis; Pain of toe of left foot; Vocal cord dysfunction; Intentional drug overdose, subsequent encounter; 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 0 02/07/2021 Active Humira Pen 40 MG/0.4ML Subcutaneous Pen-injector Kit (Adalimumab) Inject 0.4 mL under the skin every 14 days. 2 Each 11 06/22/2022 Active Additional Information Patient not taking.Reported on 04/20/2023 Gabapentin 100 MG Oral Capsule (Neurontin) Take 4 Capsules by mouth in the morning and 4 Capsules in the evening. 0 Active lamoTRIgine 25 MG Oral Tablet (LaMICtal)Indicat ions:in pm Take 4 Tablets by mouth at bedtime. 0 07/30/2022 Active Redford-3 1000 MG Oral Capsule Take 2 Capsules by mouth in the morning and 2 Capsules before bedtime. 2 caps three times daily. 0 Active Omeprazole 40 MG Oral Capsule Delayed Release (PriLOSEC)Indicat ions:Gastroesopha geal reflux disease with esophagitis and hemorrhage take [...] 1 Tablet before bedtime. 0 04/16/2023 Active Methylphenidate HCl 5 MG Oral Tablet (Ritalin) Take 1 Tablet by mouth in the morning and 1 Tablet before bedtime. As needed. 0 08/21/2022 04/20/20 23 Discontinued Lurasidone HCl 80 MG Oral Tablet (Latuda) Take 1 Tablet by mouth at bedtime. 0 08/06/2022 04/20/20 23 Discontinued FeroSul 325 (65 Fe) MG Oral TabletIndications :Gastroesophageal reflux disease with esophagitis and hemorrhage Take 1 Tablet by mouth in the morning and 1 Tablet in the evening. 60 Tablet 5 12/23/2022 04/20/20 23 Discontinued documented as of this encounter (statuses as of 04/28/2023) Active Problems Problem Noted Date Diagnosed Date BMI 40.0-44.9, adult 11/30/2022 Encounter for therapeutic drug monitoring 2021 Schizophrenia 04/29/2021 BMI 38.0-38.9,adult 02/07/2021 Obstructive sleep apnea, adult 09/27/2017 RONI (generalized anxiety disorder) 05/22/2015 Rheumatoid arthritis of [facility] sites with negative rheumatoid factor Gastroesophageal reflux disease without esophagi tis Allergic sinusitis documented as of this encounter (statuses as of 04/28/2023) Immunizations Name Administration Dates Next Due COVID-19 mRNA, LNP-s, No Pre serve, 2-Dose Series (Pfizer) 01/22/2021,08/05/2020,07/22/2020 SEASONAL INFLUENZA, PF, 6 M & [...] on file documented as of this encounter Last Filed Vital Signs Vital Sign Reading Time Taken Comments Blood Pressure 118/76 04/20/2023 2:11 PM EST Pulse 74 04/20/2023 2:11 PM EST Temperature 36.6 C (97.8 F) 04/20/2023 2:11 PM ES T Respiratory Rate 16 04/20/2023 2:11 PM EST Oxygen Saturation - - Inhaled Oxygen Concentration - - Weight 132.5 kg (292 lb) 04/20/2023 2:11 PM EST Height 185.4 cm (6' 1") 04/20/2023 2:11 PM EST Body Mass Index 38.52 04/20/2023 2:11 PM EST documented in this encounter Progress Notes * Gregoria Blair MD - 04/20/2023 2:11 PM EST HPI: Jose Mckeon is a 27 year old male with a history of rheumatoid arthritis, negative rheumatoid factor, GERD, allergic sinusitis, schizophrenia, GERD, obstructive sleep apnea, CPAP intolerant, obesity , anxiety/mood disorder, ADD, anosmia secondary to congenital nasal septal deviation, status post surgery who presents with: Chief Complaint Patient presents with Hospital Follow-Up Left small toe-wants it checked. Needs to follow up with podiatry and ENT Pt is here for the hospital follow up. Chart reviewed from the hospital including admission note, Hand P, consult notes, labs, EKG, imaging and discharge note including discharge meds. Patient states she is feeling better since went back home. Pt was admitted to the hospital on 04/11/23 and was discharged on 04/14/23. Admission Diagnosis : Rhino virus infection, dysphonia, sore throat, wound of the left foot, schizoaffective disorder bipolar type, suicidal attempt. Meds at Discharge: Lamictal 100 mg at bedtime Gabapentin 400 mg twice a day Risperidone 0.25 mg twice a day Hydroxyzine 25 mg as needed for anxiety and 50 mg at bedtime for sleep. Pt has been followed up by [facility]. As per the review of the chart and discussion with the patient, patient presented to ER for suicideattempt via ingestion of the Ativan and alcohol with acute metabolic encephalopathy due to drug overdose, alcohol and anoxia, acute respiratory failure with hypoxia and hypercapnia and aspiration pneumonia. Patient was initially admitted to ICU after intubation 03/25 and had OG T tube placed for trickle feeding, had suctioned to hypopharynx due to chunks of the food and pills noted with the aspiration. Patient underwent flexible bronchoscopy with bronchial washing from right lung on 03/29, extubated on 03/31 and course of IV Unasyn for 7 days completed during the course. Galactomannan antigen positive was noted however Infectious Disease 8 no treatment and monitor the patient. While in the hospital patient had multiple electrolyte abnormalities which were repleted as needed.Patient also has history of peptic ulcer disease and had an episode of bloody emesis which was treated with IV Protonix and GI consult was called. Hemoglobin remained stable and there was no indication for endoscopic evaluation. Patient had speech evaluation and therapy done on 04/04. With history of peptic ulcer disease and had bloody emesis it was treated with IV Protonix and GI consultation was called for this patient. Throughout hemoglobin remained stable and there was no indication for endoscopic evaluation. It was recommended to get ENT consultation done for this patient to rule out damage to the vocal cords and larynx why direct laryngoscopy as an outpatient. Patient also underwent barium swallow evaluation as had upper GI bleed and reflux. Which were suspicious for possible esophageal dysfunction. Results demonstrated normally bessy pharyngeal swallowing mechanics,. Patient was discharged to psych Service on 04/07. Status post intubation patient had dysphonia, sore throat and rhinovirus infection. Patient was advised to follow up with ENT as an outpatient. It was thought that patient had suspicious traumatic intubation while in the hospital. Patient also had a concern for possible post extubation tonsillar abscess versus infectious symptoms the strep throat was negative. CT soft tissue neck showed no abscess or gas. Patient was offered group therapy, counseling and was advised to do outpatient follow-up with the psych closely. Psych recommended discontinuation of Kaleta, trazodone and Ativan. Lamictal has been increased to 100 mg q.p.m., gabapentin increased to 400 mg twice a day. Patient was also advised to continue estradiol 2 mg twice daily and finasteride 5 mg daily for transgender identity in addition to spironolactone. Patient also had barium swallow evaluation has had suspicious esophageal dysfunction. Results demonstrated normal oropharyngeal swallowing. Patient states had left foot wound started as a blood blister and usually ambulates with use of thecane for balanced assistance. Patient was also offered left side heart both status post ICU stay and was advised to follow up with the Podiatry, PT and OT evaluation. Pt received tdap in December. Discussed pneumonia vaccine and hep b vaccine. May have received flu shot and tdap [facility] and advised to get records. Med changes: Lamictal dosage was increased to 100 mg q.p.m., gabapentin increased from 200 mg to 400 mg twice a day. Pt sees Counsellor regularly and will be seeing psychiatrist at [facility] soon. Patient Active Problem List Diagnosis Code Rheumatoid arthritis of multiple sites with negative rheumatoid factor ([facility]) M06.09 Gastroesophageal reflux disease without esophagitis K21.9 Allergic sinusitis J30.9 BMI 38.0-38.9,adult Z68.38 Schizophrenia ([facility]) F20.9 Encounter for therapeutic drug monitoring Z51.81 RONI (generalized anxiety disorder) F41.1 Obstructive sleep apnea, adult G47.33 BMI 40.0-44.9, adult ([facility]) Z68.41 Current Outpatient Medications Medication Sig Dispense Refill Cetirizine HCl 10 MG Oral Tablet Take 1 Tablet by mouth in the morning. lamoTRIgine 25 MG Oral Tablet (LaMICtal) Take 4 Tablets by mouth at bedtime. Redford-3 1000 MG Oral Capsule Take 2 Capsules by mouth in the morning and 2 Capsules before bedtime.2 caps three times daily. Omeprazole 40 MG Oral Capsule Delayed Release (PriLOSEC) take 1 capsule by mouth every morning 90 Capsule 0 Estradiol 2 MG Oral Tablet Take 1 Tablet by mouth in the morning and 1 Tablet before bedtime. Finasteride 5 MG Oral Tablet (Proscar) Take 1 Tablet by mouth in the morning. hydrOXYzine HCl 25 MG Oral Tablet Take 2 Tablets by mouth at bedtime. risperiDONE 0.5 MG Oral Tablet (RisperDAL) Take 0.5 Tablets by mouth in the morning and 0.5 Tabletsbefore bedtime. Spironolactone 50 MG Oral Tablet (Aldactone) Take 1 Tablet by mouth in the morning and 1 Tablet before bedtime. Humira Pen 40 MG/0.4ML Subcutaneous Pen-injector Kit (Adalimumab) Inject 0.4 mL under the skin every 14 days. (Patient not taking: Reported on 04/20/2023) 2 Each 11 Gabapentin 100 MG Oral Capsule (Neurontin) Take 4 Capsules by mouth in the morning and 4 Capsules in the evening. No current facility-administered medications for this visit. The patient's medication list was reviewed and updated as needed. Review of patient's allergies indicates: Allergen Reactions Zithromax [Azithromycin] rash Past Medical History: Diagnosis Date Allergic sinusitis Bipolar 1 disorder (HCC) with psychotic effect Gastroesophageal reflux disease without esophagitis ANUEL (obstructive sleep apnea) mild Rheumatoid arthritis of multiple sites with negative rheumatoid factor (HCC) Social History Socioeconomic History Marital status: Single Tobacco Use Smoking status: Never Smokeless tobacco: Never Vaping Use Vaping Use: Never used Substance and Sexual Activity Alcohol use: Never Drug use: Never Family History Problem Relation Age of Onset Mental Disorder Mother anxiety Depression Mother Neurological Disorder Father Diabetes Father type 1 Mental Disorder Father anxiety Rheum arthritis Father Lupus Grandmother (Paternal) Breast Cancer Aunt (Paternal) All system negative except as per hpi. OBJECTIVE: Blood pressure 118/76, pulse 74, temperature 36.6 C (97.8 F), resp. rate 16, height 1.854 m (6'1"), weight 132.5 kg (292 lb). PHYSICAL EXAM: HEENT: PERRLA, EOMI, anicteric sclera, b/l tympanic membrane is pearly white, no erythema, no pharyngeal erythema, no lymphadenopathy, neck supple CVS: RRR, no murmurs, rubs or gallops, s1 s 2normal. RESP: clear to auscultation, no wheezing or crackles ABD: soft, NT/ND EXT: no edema, cyanosis, peripheral pulses palpable bilaterally No large joint swelling, no redness, range of motion normal. Skin normal. Gait normal. Mood stable No focal weakness Left foot dressing and boot present. Didn't open as we didn't have all the supply for dressing. ASSESSMENT AND PLAN: Suicidal behavior with attempted self-injury (HCC) (Primary) Feels much better. Keep close f/u with Psych and counsellor. Hospital discharge follow-up - DISCH MED RECON CUR MED LIS URTI (acute upper respiratory infection) Stable. Rheumatoid arthritis of multiple sites with negative rheumatoid factor (HCC) BMI 38.0-38.9,adult Diet, portion control discussed. Schizophrenia, unspecified type (HCC) On risperidone. RONI (generalized anxiety disorder) On hydroxyzine, lamictal. Obstructive sleep apnea, adult On cpap. Gastroesophageal reflux disease without esophagitis On ppi daily Advised pt to avoid caffeine, fried fatty foods, choclates, peppermints, smoking and alcohol. Exercise and weight loss emphasized. Eat dinner 3 hours prior to bed time. I spent 45 min face to face reviewing all the records, taking history, physical, documentation. Gregoria Blair MD documented in this encounter Nursing Notes * Liberty Monsalve LPN - 04/20/2023 2:11 PM EST The patient has been properly identified by confirmation of name and date of . Chief Complaint Patient presents with Hospital Follow-Up Left small toe-wants it checked. Needs to follow up with podiatry and ENT documented in this encounter Miscellaneous Notes * Addendum Note - Gregoria Blair MD - 04/28/2023 10:16 AM ESTAddended by: GREGORIA BLAIR on: 04/28/2023 10:16 AM Modules accepted: Orders documented in this encounter Plan of Treatment Upcoming Encounters Date Type Department Care Team (Late st Contact Info) Description 04/28/2023 2:40 PM EST Office Visit Wound Care, [facility] [address] [place] [address] Jacquie Peguero DPM [address] [facility] [place] [address] 05/25/2023 2:00 PM EST Office Visit General Internal Medicine [facility] [address] [facility] [place] [address] Renata Waters MD [address] [facility] [place] [address] 06/30/2023 3:00 PM EST Office Visit Otolaryngology [facility] [address] [place] [address] Regla Cherry PA-C [address] [place] [address] 09/28/2023 4:00 PM EDT Office Visit Rheumatology [address] [place] [address] Brando Degroot MD [address] [place] [address] [place] [address] Scheduled Orders Name Type Priority Associated Diagnoses Orde r Schedule CBC WITH WBC DIFFERENTIAL Lab Routine Platelet disorder (HCC) Expected: 04/28/2023 (Approximate), Expires: 04/28/2024 COMPREHENSIVE METABOLIC PANEL Lab Routine Rheumatoid arthritis of multiple sites with negative rheumatoid factor (HCC) Expected: 04/28/2023 (Approximate), Expires: 04/27/2024 Scheduled Referrals Name Type Priority Associated Diagnoses Orde r Schedule PODIATRY REFERRAL OP Referral Within 10 d ays (routine) Pain of toe of left foot Ordered: 04/20/2023 OTOLARYNGOLOGY REFERRAL OP Referral Within 10 days (routine) Vocal cord dysfunction Ordered: 04/20/2023 Health Maintenance Due Date Last Done Comments [...] Not on filedocumented as of this encounter Results * (ABNORMAL) COMPREHENSIVE METABOLIC PANEL (04/20/2023 3:01 PM EST) BUN 16 6 - 20 mg/dL 04/20/2023 4:10 PM EST [facility]- Creatinine 1.0 0.6 - 1.2 mg/dL 04/20/2023 4:10 PM EST [facility] 56-02 Estimated Glomerular Filtration Rate >90 >=60 mL/min 04/20/2023 4:10 PM EST [facility] 56-02 Comment:eGFR is calculated b ased on the CKD-EPI 2020 equation Sodium 139 135 - 146 mmol/L 04/20/2023 4:10 PM EST [facility] [place] [facility]- Potassium 4.4 3.5 - 5.1 mmol/L 04/20/2023 4:10 PM EST [facility] [place] [facility]- Chloride 105 98 - 107 mmol/L 04/20/2023 4:10 PM EST [facility] [place] [facility]- CO2 24 22 - 32 mmol/L 04/20/2023 4:10 PM EST [facility] 56 Anion Gap 10 7 - 15 mmol/L 04/20/2023 4:10 PM EST [facility] 56- Glucose 90 70 - 120 mg/dL 04/20/2023 4:10 PM EST [facility] 56- Albumin 4.2 3.8 - 5.0 g/dL 04/20/2023 4:10 PM [facility] 56 AST 25 10 - 50 U/L 04/20/2023 4:[address] Alkaline Phosphatase 86 35 - 130 U/L 04/20/2023 4:[address] Bilirubin, Total 0.5 <=1.2 mg/dL 04/20/2023 4:10 PM EST [address] Calcium 9.9 8.4 - 10.2 mg/dL 04/20/2023 4:[address] Protein 7.3 6.0 - 8.3 g/dL 04/20/2023 4:[address] ALT 85(H) 10 - 50 U/L 04/20/2023 4:10 PM [facility] 56 Blood Venous blood specimen / Unknown Venipuncture / Unknown 04/20/2023 3:01 PM EST 04/20/2023 3:01 PM EST Gregoria Blair MD LAB BLOOD ORDERA BLES [address] [place] [address] documented in this encounter Visit Diagnoses Diagnosis Suicidal behavior with attempted self-injury (HCC)- Primary Hospital discharge follow-up Other follow-up examination URTI (acute upper respiratory infection) Acute upper respiratory infections of unspecified site Rheumatoid arthritis of multiple sites with negative rheumatoid factor (HCC) BMI 38.0-38.9,adult Body Mass Index 38.0-38.9, adult Schizophrenia, unspecified type (HCC) RONI (generalized anxiety disorder) Generalized anxiety disorder Obstructive sleep apnea, adult Obstructive sleep apnea (adult) (pediatric) Gastroesophageal reflux disease without esophagitis Esophageal reflux Pain of toe of left foot Pain in limb Vocal cord dysfunction Other diseases of vocal cords Intentional drug overdose, subsequent encounter Platelet disorder (HCC) Qualitative platelet defects documented in this encounter Care Teams Family Literacy Coordinator Relationship Specialty Start Date End Date Renata Waters MD [address] [place] [address] PCP - General Internal Medicine 05/10/21 documented as of this encounter
--- OUTSIDE RECORDS SUMMARY | 2023-04-30 23:36 | External Medical Summary | Summary of Care ---
Author Name Unknown Organization [facility] Address [address] [place] [address] Phone [phone] Care Team Providers Care Machine Tracer Name Role Phone Renata Waters MD Primary Care Provider [phone] Reason for Visit * Reason Onset Date Comments Test Results 04/28/2023 Encounter Details Date Type Department Care Team (Late st Contact Info) Description 04/28/2023 Telephone General Internal Medicine [facility] 200 [facility] [place] [id number] Renata Waters MD [address] [place] [address] Test Results Allergies Active Allergy Reactions Criticality Noted Date [...] by mouth at bedtime. 0 07/30/2022 Active [place]-3 1000 MG Oral Capsule Take 2 Capsules [...] (generalized anxiety disorder) 05/22/2015 Rheumatoid arthritis of [facility] sites with negative rheumatoid factor Gastroesophageal reflux disease without esophagi tis Allergic sinusitis documented as of this encounter (statuses as of 04/28/2023) Immunizations Name Administration Dates Next Due COVID-19 mRNA, LNP-s, No Pre serve, 2-Dose Series ([employer]) 01/22/2021,08/05/2020,07/22/2020 SEASONAL INFLUENZA, PF, 6 M & [...] encounter Miscellaneous Notes * Telephone Encounter - Meliza Han CMA - 04/28/2023 10:56 AM EST Called patient to relay test results, he cut me off and said he already saw them in his chart and Isaid would you like me to go over Dr Blair's recommendations with you and he said "no thanks" so test results not relayed to patient Portal message sent and letter mailed to patient * Telephone Encounter - Meliza Han CMA - 04/28/2023 10:55 AM EST ----- Message from Gregoria Blair MD sent at 04/28/2023 10:16 AM EST ----- Recent blood work shows worsening platelet count and still mild anemia which is improving compared to before though. Please find out how he is doing clinically. Any sign of bleeding? Any other significant symptoms? Patient also has high liver function test and make sure he does not drink alcohol and does not takeany [id number] pain medications including Tylenol or NSAIDs. He should get repeat CMP, CBCD before the next appointment with PCP on May 25. Order is in. documented in this encounter Plan of Treatment Upcoming Encounters Date Type Department Care Team (Late st Contact Info) Description 05/05/2023 12:40 PM EST Office Visit Wound Care, [address] [place] [id number] Jacquie Peguero DPM [address] [place] [address] 05/25/2023 2:00 PM EST Office Visit General Internal Medicine [facility] [address] [facility] [place] [address] Renata Waters MD [address] [facility] [place] [address] 06/30/2023 3:00 PM EST Office Visit Otolaryngology [facility] [address] [place] [address] Regla Cherry PA-C [address] [place] [address] 09/28/2023 4:00 PM EDT Office Visit Rheumatology [place] [address] [employer] [place] [address] Brando Degroot MD [address] [employer] [place] [address] Health Maintenance Due Date Last Done Comments [...] filedocumented as of this encounter Care Teams Machine Tracer Relationship Specialty Start Date End Date Renata Waters MD [address] [place] [address] PCP - General Internal Medicine 05/10/21 documented as of this encounter
--- OUTSIDE RECORDS SUMMARY | 2023-04-30 23:36 | External Medical Summary | Summary of Care ---
Author Name Unknown Organization [facility] Address [address] [place] [address] Phone [phone] Care Team Providers Care Tray Service Worker Name Role Phone Renata Waters MD Primary Care Provider [phone] Reason for Visit * Reason Onset Date Comments Hospital Follow-Up 04/05/2023 Encounter Details Date Type Department Care Team (Late st Contact Info) Description 04/05/2023 Telephone General Internal Medicine [facility] 200 [facility] [place] [id number] Renata Waters MD [address] [place] [address] Hospital Follow-Up Allergies Active Allergy Reactions Criticality Noted Date Comments Azithromycin 02/07/2021 rash documented as of this encounter (statuses as of 04/23/2023) Medications Medication Sig Dispensed Refills Start Date [...] by mouth at bedtime. 0 07/30/2022 Active [place]-3 1000 MG Oral Capsule Take 2 Capsules by mouth in the morning and 2 Capsules before bedtime. 2 caps three times daily. 0 Active Omeprazole 40 MG Oral Capsule Delayed Release (PriLOSEC)Indicat ions:Gastroesopha geal reflux disease with esophagitis and hemorrhage take 1 capsule by mouth every morning 90 Capsule 0 03/19/2023 Active Methylphenidate HCl 5 MG Oral Tablet [...] as of this encounter (statuses as of 04/23/2023) Active Problems Problem Noted Date Diagnosed Date BMI 40.0-44.9, adult 11/30/2022 Encounter for therapeutic drug monitoring 2021 Schizophrenia 04/29/2021 BMI 38.0-38.9,adult 02/07/2021 Obstructive sleep apnea, adult 09/27/2017 RONI (generalized anxiety disorder) 05/22/2015 Rheumatoid arthritis of [facility] sites with negative rheumatoid factor Gastroesophageal reflux disease without esophagi tis Allergic sinusitis documented as of this encounter (statuses as of 04/23/2023) Immunizations Name Administration Dates Next Due COVID-19 mRNA, LNP-s, No Pre serve, 2-Dose Series ([employer]) 01/22/2021,08/05/2020,07/22/2020 SEASONAL INFLUENZA, PF, 6 M & [...] encounter Miscellaneous Notes * Telephone Encounter - Marylu Cope OSA - 04/23/2023 12:39 PM EST Called and lmom for pt to return call. ANUEL Carranza * Telephone Encounter - Elizabet Wren OSA - 04/21/2023 2:27 PM EST Patient is scheduled for 06/30/23 but left a message because Tera Salgado agreed to see him before that date Thanks Elizabet * Telephone Encounter - Elizabet Wren OSA - 04/06/2023 9:05 AM EST Left message to call ENT back Thank you Elizabet * Telephone Encounter - Tera Salgado PA-C - 04/06/2023 8:43 AM EST I could see him Dec 7 sometime in the morning, before 11:30. Thank you! Tera Salgado PA-C * Telephone Encounter - Lola Daniels LPN - 04/06/2023 8:16 AM EST Patient will be getting discharged. When would be an appropriate time to have patient scheduled. * Telephone Encounter - Vincent Goff RN - 04/05/2023 3:45 PM EST Patient intubated 03/24-. During intubation had periods of agitation/thrashing and [...] 2:40 PM EST Office Visit Wound Care, [facility] [address] [facility] [place] [address] Jacquie Peguero DPM [address] [place] [address] 05/25/2023 2:00 PM EST Office Visit General Internal Medicine [facility] 200 [facility] [place] [address] Renata Waters MD 200 [facility] [place] [address] 06/30/2023 3:00 PM EST Office Visit Otolaryngology [facility] [address] [place] [address] Regla Cherry PA-C [address] [place] [address] 09/28/2023 4:00 PM EDT Office Visit Rheumatology [place] [address] [facility] [place] [address] Brando Degroot MD [address] [facility] [place] [address] Health Maintenance Due Date Last Done Comments [...] filedocumented as of this encounter Care Teams Tray Service Worker Relationship Specialty Start Date End Date Renata Waters MD [address] [place] [address] PCP - General Internal Medicine 05/10/21 documented as of this encounter
--- OUTSIDE RECORDS SUMMARY | 2023-04-30 23:36 | External Medical Summary | Summary of Care ---
Author Name Unknown Organization [facility] Address [address] [place] [address] Phone [phone] Care Team Providers Care Patternmaker Name Role Phone Renata Waters MD Primary Care Provider [phone] Reason for Visit * Reason Onset Date Comments Hospital Follow-Up 04/05/2023 Encounter Details Date Type Department Care Team (Late st Contact Info) Description 04/05/2023 Telephone General Internal Medicine [facility] 200 [facility] [place] [id number] Renata Waters MD 200 [place] [address] Hospital Follow-Up Allergies Active Allergy Reactions Criticality [...] MG Oral Tablet (LaMICtal)Indicati ons:in pm Take 4 Tablets by mouth at bedtime. 0 07/30/2022 Active Ida-3 1000 MG Oral Capsule Take 2 Capsules [...] Tablet before bedtime. As needed. 0 08/21/2022 3 Discontinued Lurasidone HCl 80 MG Oral Tablet (Latuda) Take 1 Tablet by mouth at bedtime. 0 08/06/2022 3 Discontinued FeroSul 325 (65 Fe) MG Oral TabletIndications: Gastroesophageal reflux disease with esophagitis and hemorrhage Take 1 Tablet by mouth in the morning and 1 Tablet in the evening. 60 Tablet 5 12/23/2022 3 Discontinued documented as of this encounter (statuses as of 04/29/2023) Active Problems Problem Noted Date Diagnosed Date BMI 40.0-44.9, adult 11/30/2022 Encounter for therapeutic drug monitoring 2021 Schizophrenia 04/29/2021 BMI 38.0-38.9,adult 02/07/2021 Obstructive sleep apnea, adult 09/27/2017 RONI (generalized anxiety disorder) 05/22/2015 Rheumatoid arthritis of [facility] sites with negative rheumatoid factor Gastroesophageal reflux disease without esophagi tis Allergic sinusitis documented as of this encounter (statuses as of 04/29/2023) Immunizations Name Administration Dates Next Due COVID-19 mRNA, LNP-s, No Pre serve, 2-Dose Series ([employer]) 01/22/2021,08/05/2020,07/22/2020 SEASONAL INFLUENZA, PF, 6 M & [...] encounter Miscellaneous Notes * Telephone Encounter - Tera Salgado PA-C - 04/29/2023 10:57 AM EST Can see him 05/10 at 9:40 am or 2:20 pm Thank you! Tera Salgado PA-C * Telephone Encounter - Elizabet Wren OSA - 04/29/2023 8:40 AM EST Tera there is now another TE in on this carmina who finally called us back after a few weeks for a sooner appointment. You had said you could see him this am Is there another time for him to be seen or should we just leave him on the jun? Thanks Elizabet * Telephone Encounter - Marylu Cope OSA [...] Visit Wound Care, [facility] 400 [facility] [place] [address] Jacquie Peguero DPM [address] [place] [address] 05/25/2023 2:00 PM EST Office Visit General Internal Medicine [facility] [place] [address] [place] [address] Renata Waters MD 200 [facility] [place] [address] 06/30/2023 3:00 PM EST Office Visit Otolaryngology [facility] [address] [place] [address] Regla Cherry PA-C [address] [place] [address] 09/28/2023 4:00 PM EDT Office Visit Rheumatology [facility] [address] [employer] [place] [address] Brando Degroot MD [address] [employer] [place] [address] Health Maintenance Due Date Last Done Comments [...] filedocumented as of this encounter Care Teams Patternmaker Relationship Specialty Start Date End Date Renata Waters MD 200 [facility] [place] [address] PCP - General Internal Medicine 05/10/21 documented as of this encounter
--- OUTSIDE RECORDS SUMMARY | 2023-04-30 23:36 | External Medical Summary | Summary of Care ---
Author Name Unknown Organization [facility] Address [address] [place] [address] Phone [phone] Care Team Providers Care Proof Tester Name Role Phone Renata Waters MD Primary Care Provider [phone] Reason for Visit * Reason Onset Date Comments Appointment 04/28/2023 Encounter Details Date Type Department Care Team (Late st Contact Info) Description 04/28/2023 Telephone Wound Care, [address] [address] Services, Scheduling [address] [place] [address] Appointment Allergies Active Allergy Reactions Criticality Noted [...] 0 Active lamoTRIgine 25 MG Oral Tablet (LaMICtal)Indicatio ns:in pm Take 4 Tablets by mouth at bedtime. 0 07/30/2022 Active [place]-3 1000 MG Oral Capsule Take 2 Capsules by mouth in the morning and 2 Capsules before bedtime. 2 caps three times daily. 0 Active Omeprazole 40 MG Oral Capsule Delayed Release (PriLOSEC)Indicatio ns:Gastroesophageal reflux disease with esophagitis and hemorrhage take [...] mRNA, LNP-s, No Pre serve, 2-Dose Series ([employer]) 01/22/2021,08/05/2020,07/22/2020 SEASONAL INFLUENZA, PF, 6 M & [...] encounter Miscellaneous Notes * Telephone Encounter - Belén Cheek OSA - 04/28/2023 10:37 AM EST I spoke with the patient regarding the new wound appointment scheduled today. He states it is not just for toe pain, but he has an open wound. He is informed that if there is no wound when he arriveswe will have to cancel the appointment. * Telephone Encounter - Huma Estrada OSA - 04/28/2023 8:09 AM EST Called patient and LM for them to CB and reschedule appointment. Scheduled in wound care for Podiatry appointment. Next available per paty. documented in this encounter Plan of Treatment Upcoming Encounters Date Type Department Care Team (Late st Contact Info) Description 04/28/2023 2:40 PM EST Office Visit Wound Care, [facility] [address] [place] [address] Jacquie Peguero DPM [address] [facility] [place] [address] 05/25/2023 2:00 PM EST Office Visit General Internal Medicine [employer] [address] [place] [address] [place] [address] Renata Waters MD [address] [place] [address] [address] 06/30/2023 3:00 PM EST Office Visit Otolaryngology [facility] [address] [place] [address] Regla Cherry PA-C [address] [place] [address] 09/28/2023 4:00 PM EDT Office Visit Rheumatology [facility] [address] [facility] [place] [address] Brando Degroot MD [address] [employer] [place] [address] Health Maintenance Due Date Last Done Comments [...] filedocumented as of this encounter Care Teams Proof Tester Relationship Specialty Start Date End Date Renata Waters MD 200 [facility] [place] [address] PCP - General Internal Medicine 05/10/21 documented as of this encounter
--- OUTSIDE RECORDS SUMMARY | 2023-04-30 23:36 | External Medical Summary | Summary of Care ---
Author Name Unknown Organization [facility] Address [address] [place] [address] Phone [phone] Care Team Providers Care Medical Office Assistant Instructor Name Role Phone Renata Waters MD Primary Care Provider [phone] Reason for Visit * Reason Comments NEW PATIENT * Evaluate & Treat - Unlimited Visits (Within 10 days (routine)) - Pending Review Specialty Diagnoses / Procedures Referred By Delia amaya Referred To Contact Podiatry Diagnoses Pain of toe of left foot Gregoria Blair MD [address] [place] [address] Referral ID Status Reason Start Date Expiration Date Visits Requested Visits Authorized [id number] Pending Review Specialty Services Required [phone] Encounter Details Date Type Department Care Team (Late st Contact Info) Description 04/28/2023 2:40 PM EST Office Visit Wound Care, [facility] [address] [place], [place] [phone] Jacquie Peguero DPM [address] [facility] [place] [address] Necrotic toes (HCC)*; Rheumatoid arthritis of multiple sites with negative rheumatoid factor (HCC); Schizophrenia, unspecified type (HCC) Allergies Active Allergy Reactions Criticality Noted Date [...] by mouth at bedtime. 0 07/30/2022 Active [place]-3 1000 MG Oral Capsule Take 2 Capsules [...] (generalized anxiety disorder) 05/22/2015 Rheumatoid arthritis of [facility] sites with negative rheumatoid factor Gastroesophageal reflux disease without esophagi tis Allergic sinusitis documented as of this encounter (statuses as of 04/28/2023) Immunizations Name Administration Dates Next Due COVID-19 mRNA, LNP-s, No Pre serve, 2-Dose Series ([employer]) 01/22/2021,08/05/2020,07/22/2020 SEASONAL INFLUENZA, PF, 6 M & [...] on file documented as of this encounter Progress Notes * Jacquie Peguero, CARLO - 04/28/2023 2:59 PM EST Images from the original note were not included. [facility] Wound Care Initial Consult [facility] Hospital Name: Jose Mckeon : 1995 Date: 04/28/2023 CHIEF COMPLAINT: Left necrotic toe HISTORY OF PRESENT ILLNESS: Patient is a 27 year old male who presents today with complaints of a left necrotic toe. Pt was recently admitted to [facility] after a suicide attempt. He was admittedand in the ICU. He states he woke up to a black toe on the left foot. He was evaluated by Dr. Palm who noted the necrosis and advised to see what happens. He comes today with no images. He was toldhe will likely need to lose the toe. Has been applying adaptic and a dry dressing. Walking in a post op shoe. Denies any other complaints. Past Medical History: Diagnosis Date Allergic sinusitis Bipolar 1 disorder (HCC) with psychotic effect Gastroesophageal reflux disease without esophagitis ANUEL (obstructive sleep apnea) mild Rheumatoid arthritis of multiple sites with negative rheumatoid factor ([facility]) Past Surgical History: Procedure Laterality Date EGD, FLEXIBLE, DIAGNOSTIC 11/17/2022 erosive esophagitis, hiatal hernia, repeat 12 wks / [facility] LAPAROSCOPY; CHOLECYSTECTOMY 2015 REPAIR OF NASAL SEPTUM Bilateral Family History Problem Relation Age of Onset Mental Disorder Mother anxiety Depression Mother Neurological Disorder Father Diabetes Father type 1 Mental Disorder Father anxiety Rheum arthritis Father Lupus Grandmother (Paternal) Breast Cancer Aunt (Paternal) Social History Socioeconomic History Marital status: Single Tobacco Use Smoking status: Never Smokeless tobacco: Never Vaping Use Vaping Use: Never used Substance and Sexual Activity Alcohol use: Never Drug use: Never Current Outpatient Medications Medication Sig Dispense Refill Cetirizine HCl 10 MG Oral Tablet Take 1 Tablet by mouth in the morning. Humira Pen 40 MG/0.4ML Subcutaneous Pen-injector Kit (Adalimumab) Inject 0.4 mL under the skin every 14 days. 2 Each 11 Gabapentin 100 MG Oral Capsule (Neurontin) Take 4 Capsules by mouth in the morning and 4 Capsules in the evening. lamoTRIgine 25 MG Oral Tablet (LaMICtal) Take 4 Tablets by mouth at bedtime. [place]-3 1000 MG Oral Capsule Take 2 Capsules [...] the morning and 1 Tablet before bedtime. No current facility-administered medications for this visit. ALLERGIES: Review of patient's allergies indicates: Allergen Reactions Zithromax [Azithromycin] rash REVIEW OF SYSTEMS: CONSTITUTIONAL: No change in weight, No weakness, No fatigue, and No fevers, sweats, or chills EYE: No recent significant change in vision and No eye pain, redness, discharge EARS: No ear pain and No recent change in hearing NOSE: No history of frequent colds or sinusitis and No nasal stuffiness PULMONARY: No cough, sputum, or hemoptysis and No recent change in breathing CARDIOVASCULAR: No chest pain and No shortness of breath EXTREMITIES: Necrotic 5th toe SKIN/INTEGUMENTARY: No edema, No rash, and No itching NEUROLOGIC: Normal balance, No headaches, No seizures, and No weakness PSYCHIATRIC: No depression, No anxiety, and No psychosis PROBLEM FOCUSED PODIATRIC EXAM Vitals: There were no vitals filed for this visit. DP/PT pulses palpable, left Current dressing: See Wound Assessment Dressing change frequency: every day RLE Compression: LLE Compression: RLE Wt Bearing Offloading: LLE Wt Bearing Offloading: RLE Non-Wt Bearing Offloading: LLE Non-Wt Bearing Offloading: Offloading Surface for Bed: Offloading Surface for Chair / Wheelchair: WOUND ASSESSMENT: Alteration in Skin Integrity Left Plantar (Active) Clinical Image 04/28/231432 Wound Length (cm) 6 cm 04/28/231432 Wound Width (cm) 3.5 cm 04/28/231432 Wound Depth (cm) 0 cm 04/28/23 143 Yellow Fibrinous Slough (%) none 04/28/23 1433 Granulation Tissue (%) none 04/28/23 143 Granulation Tissue Color not applicable 04/28/231432 Necrotic Tissue (%) 76-99% 04/28/231432 Necrotic Tissue Color Black 04/28/231432 Deep Supporting Structure Exposed None 04/28/23 1433 Drainage none 04/28/23 1433 Odor (after cleansing wound) No 04/28/231432 Xiao-Wound (Surrounding Skin) Erythematous;Indurated;Intact;Macerated 04/28/231432 Evidence of Infection Yes 04/28/233 Wound Surface Area (cm^2) 21 cm^2 04/28/23 1433 Wound Volume (cm^3) 0 cm^3 04/28/233 Diagnostic Studies: Xrays-pending PROCEDURE: Wound location: Necrotic 5th toe, left Character of Wound/Ulcer Pre Debridement: New No debridement performed. Assessment: 1. Necrotic toes 2. Rheumatoid arthritis of multiple sites with negative rheumatoid factor (HCC) 3. Schizophrenia, unspecified type (HCC) Plan: - Continue with betadine and dry dressing to the left 5th toe daily. - Xray order placed. - Continue with WBAT in flat surgical shoe. - Will check toe next week, but will likely need 5th toe amputated. Pt aware. - Pt to RTC in 1 week for re-check. Instructed to call with any problems or questions. Jacquie Peguero DPM 04/28/2023 2:59 PM Referring: Gregoria Blair MD documented in this encounter Nursing Notes * Shelley Milan LPN - 04/28/2023 2:29 PM EST Pt presents for wound to the left fifth toe. Pt presented in dressings and a post op shoe ambulating with a cane due to RA. Toe is black and pt states was draining bloody slightly green drainage a few days ago. Area was cleansed and dried. documented in this encounter Plan of Treatment Upcoming Encounters Date Type Department Care Team (Late st Contact Info) Description 05/05/2023 12:40 PM EST Office [address], [address] [address] Jacquie Peguero DPM [address] [place] [address] 05/25/2023 2:00 PM EST Office Visit General Internal Medicine [facility] [address] [place] [address] Renata Waters MD [address] [place] [address] 06/30/2023 3:00 PM EST Office Visit Otolaryngology [facility] 132 [facility] [place] [address] Regla Cherry PA-C [address] [place] [address] 09/28/2023 4:00 PM EDT Office Visit Rheumatology [facility] [address] [place] [address] Brando Degroot MD [address] [place] [address] Pending Results Name Type Priority Associated Diagnoses Date /Time XR TOES 2 OR MORE VIEWS Medical Imaging Routine Necrotic toes (HCC) 04/28/2023 3:18 PM EST Health Maintenance Due Date Last Done Comments [...] as of this encounter Visit Diagnoses Diagnosis Necrotic toes (HCC)- Primary Gangrene Rheumatoid arthritis of multiple sites with negative rheumatoid factor (HCC) Schizophrenia, unspecified type (HCC) documented in this encounter Care Teams Medical Office Assistant Instructor Relationship Specialty Start Date End Date Renata Waters MD 200 [facility] [place] [address] PCP - General Internal Medicine 05/10/21 documented as of this encounter
--- OUTSIDE RECORDS SUMMARY | 2023-04-30 23:36 | External Medical Summary | Summary of Care ---
Author Name Unknown Organization [facility] Address [address] [place] [address] Phone [phone] Care Team Providers Care Project Inspector Name Role Phone Renata Waters MD Primary Care Provider [phone] Reason for Visit * Reason Onset Date Comments Appointment 04/28/2023 Encounter Details Date Type Department Care Team (Late st Contact Info) Description 04/28/2023 Telephone Wound Care, [address] [address] Services, Scheduling [address] [place] [address] Appointment Allergies Active Allergy Reactions Criticality Noted [...] by mouth at bedtime. 0 07/30/2022 Active [place]-3 1000 MG Oral Capsule Take 2 Capsules [...] (generalized anxiety disorder) 05/22/2015 Rheumatoid arthritis of [facility] sites with negative rheumatoid factor Gastroesophageal reflux disease without esophagi tis Allergic sinusitis documented as of this encounter (statuses as of 04/28/2023) Immunizations Name Administration Dates Next Due COVID-19 mRNA, LNP-s, No Pre serve, 2-Dose Series ([employer]) 01/22/2021,08/05/2020,07/22/2020 SEASONAL INFLUENZA, PF, 6 M [...] encounter Miscellaneous Notes * Telephone Encounter - Huma Estrada OSA - 04/28/2023 8:09 AM EST Called patient and LM for them to CB and reschedule appointment. Scheduled in wound care for Podiatry appointment. Next available per paty. documented in this encounter Plan of Treatment Upcoming Encounters Date Type Department Care Team (Late st Contact Info) Description 04/28/2023 2:40 PM EST Office Visit Wound Care, [address] [place] [address] Jacquie Peguero DPM [address] [place] [address] 05/25/2023 2:00 PM EST Office Visit General Internal Medicine [facility] [address] [place] [address] Renata Waters MD [address] [facility] [address] [place] [address] 06/30/2023 3:00 PM EST Office Visit Otolaryngology [facility] [address] [place] [address] Regla Cherry PA-C [address] [place] [address] 09/28/2023 4:00 PM EDT Office Visit Rheumatology [address] [place] [address] Brando Degroot MD [address] [place] [address] Health Maintenance Due Date Last Done Comments [...] filedocumented as of this encounter Care Teams Project Inspector Relationship Specialty Start Date End Date Renata Waters MD 200 [facility] [place], [place] [address] PCP - General Internal Medicine 05/10/21 documented as of this encounter
--- OUTSIDE RECORDS SUMMARY | 2023-04-30 23:36 | External Medical Summary | Summary of Care ---
Author Name Unknown Organization [facility] Address [address] [place] [address] Phone [phone] Care Team Providers Care Dermatology Teacher Name Role Phone Renata Waters MD Primary Care Provider [phone] Reason for Visit * Reason Onset Date Comments Hospital Follow-Up 04/05/2023 Encounter Details Date Type Department Care Team (Late st Contact Info) Description 04/05/2023 Telephone General Internal Medicine [facility] 200 [facility] [employer] [place] [id number] Renata Waters MD [address] [place] [address] Hospital Follow-Up Allergies Active Allergy Reactions Criticality [...] by mouth at bedtime. 0 07/30/2022 Active [place]-3 1000 MG Oral Capsule Take 2 Capsules [...] 38.0-38.9,adult 02/07/2021 Obstructive sleep apnea, adult 09/27/2017 ORNI (generalized anxiety disorder) 05/22/2015 Rheumatoid arthritis of [facility] sites with negative rheumatoid factor Gastroesophageal reflux disease without esophagi tis Allergic sinusitis documented as of this encounter (statuses as of 04/29/2023) Immunizations Name Administration Dates Next Due COVID-19 mRNA, LNP-s, No Pre serve, 2-Dose Series ([employer]) 01/22/2021,08/05/2020,07/22/2020 SEASONAL INFLUENZA, PF, 6 M & [...] 12:40 PM EST Office Visit Wound Care, [facility] [address] [facility] [place] [address] Jacquie Peguero DPM [address] [place] [address] 05/25/2023 2:00 PM EST Office Visit General Internal Medicine [facility] 200 [facility] [employer] [place] [address] Renata Waters MD 200 [facility] [place] [address] 06/30/2023 3:00 PM EST Office Visit Otolaryngology [facility] [address] [place] [address] Regla Cherry PA-C [address] [place] [address] 09/28/2023 4:00 PM EDT Office Visit Rheumatology [facility] [place] [address] [employer] [place] [address] Brando Degroot MD [address] [place] [address] Health Maintenance Due Date Last Done Comments [...] filedocumented as of this encounter Care Teams Dermatology Teacher Relationship Specialty Start Date End Date Renata Waters MD 200 [facility] [place] [address] PCP - General Internal Medicine 05/10/21 documented as of this encounter
--- OUTSIDE RECORDS SUMMARY | 2023-04-30 23:36 | External Medical Summary | Summary of Care ---
Author Name Unknown Organization [facility] Address [address] [place] [address] Phone [phone] Care Team Providers Care Nuclear Engineer Name Role Phone Renata Waters MD Primary Care Provider [phone] Reason for Visit * Reason Onset Date Comments Hospital Follow-Up 04/05/2023 Encounter Details Date Type Department Care Team (Late st Contact Info) Description 04/05/2023 Telephone General Internal Medicine [facility] 200 [facility] [place] [id number] Renata Waters MD 200 [place] [address] Hospital Follow-Up Allergies Active Allergy Reactions Criticality [...] by mouth at bedtime. 0 07/30/2022 Active [place]-3 1000 MG Oral Capsule Take 2 Capsules [...] 05/22/2015 Rheumatoid arthritis of [facility] sites with negative rheumatoid factor Gastroesophageal reflux disease without esophagi tis Allergic sinusitis documented as of this encounter (statuses as of 04/29/2023) Immunizations Name Administration Dates Next Due COVID-19 mRNA, LNP-s, No Pre serve, 2-Dose Series (Thrinacia) 01/22/2021,08/05/2020,07/22/2020 SEASONAL INFLUENZA, PF, 6 M & [...] Encounter - Elizabet Wren OSA - 04/29/2023 11:28 AM EST Patient accepted 05/10 at 2:20 Thank you Elizabet * Telephone Encounter - [...] should we just leave him on the jun date? Thanks Elizabet * Telephone Encounter - Marylu [...] 12:40 PM EST Office Visit Wound Care, [facility] [address] [place] [address] Jacquie Peguero DPM [address] [facility] [place] [address] 05/10/2023 2:20 PM EST Office Visit Otolaryngology [facility] [address] [place] [address] Tera Salgado PA-C [address] [place] [address] 05/25/2023 2:00 PM EST Office Visit General Internal Medicine [facility] [place] [address] [place] [address] Renata Waters MD [address] [place] [address] 09/28/2023 4:00 PM EDT Office Visit Rheumatology [facility] [address] [place] [address] Brando Degroot MD [address] [place] [address] Health Maintenance Due Date Last Done Comments [...] filedocumented as of this encounter Care Teams Nuclear Engineer Relationship Specialty Start Date End Date Renata Waters MD [address] [place] [address] PCP - General Internal Medicine 05/10/21 documented as of this encounter
--- OUTSIDE RECORDS SUMMARY | 2023-04-30 23:37 | External Medical Summary ---
Author Name Unknown Address Unknown Organization [id number]:[facility] - [address] [place] [address] [place] [address] Laboratory Report Ordering Provider Test Date Status JEAN CARLOS MIGUEL 04/20/2023 15:01:51 Final Observation Date Value Abnormality Reference (Units ) Status Ferritin 04/20/2023 15:01:51 64 30-400 (ng /mL) Final Performing Location [facility] - [address] [place] [address]
--- OUTSIDE RECORDS SUMMARY | 2023-04-30 23:37 | External Medical Summary ---
Author Name Unknown Address Unknown Organization [id number]:[facility] [place] [address] [facility] [address] [facility] [address] Laboratory Report Ordering Provider Test Date Status JEAN CARLOS MIGUEL 04/20/2023 15:01:51 Final Observation Date Value Abnormality Reference (Units ) Status Iron 04/20/2023 15:01:51 68 45-176 (ug /dL) Final Iron-binding capacity 04/20/2023 15:01:51 329 250-425 (ug/dL) Final Transferrin Sat % 04/20/2023 15:01:51 21 15 -55 (%) Final Performing Location [facility] - [address] [facility] [address]
--- OUTSIDE RECORDS SUMMARY | 2023-04-30 23:37 | External Medical Summary | Summary of Care ---
Author Name Unknown Organization [facility] Address [address] [place] [address] Phone [phone] Care Team Providers Care Fish Fryer Name Role Phone Renata Waters MD Primary Care Provider [phone] Reason for Visit * Reason Comments Outpatient Testing Encounter Details Date Type Department Care Team (Late st Contact Info) Description 04/20/2023 3:00 PM EST Laboratory Laboratory [facility] [place] [address] [place] [address] [facility] [address] [place] [address] Upper GI bleed; Anemia, unspecified type; Hospital discharge follow-up; Intentional drug overdose, subsequent encounter Allergies Active Allergy Reactions Criticality Noted Date Comments Azithromycin 02/07/2021 rash documented as of this encounter (statuses as of 04/20/2023) Medications Medication Sig Dispensed Refills Start Date [...] by mouth at bedtime. 0 07/30/2022 Active T[place]-3 1000 MG Oral Capsule Take 2 Capsules [...] as of this encounter (statuses as of 04/20/2023) Active Problems Problem Noted Date Diagnosed Date BMI 40.0-44.9, adult 11/30/2022 Encounter for therapeutic drug monitoring 2021 Schizophrenia 04/29/2021 BMI 38.0-38.9,adult 02/07/2021 Obstructive sleep apnea, adult 09/27/2017 RONI (generalized anxiety disorder) 05/22/2015 Rheumatoid arthritis of [facility] sites with negative rheumatoid factor Gastroesophageal reflux disease without esophagi tis Allergic sinusitis documented as of this encounter (statuses as of 04/20/2023) Immunizations Name Administration Dates Next Due COVID-19 mRNA, LNP-s, No Pre serve, 2-Dose Series (Lingoda) 01/22/2021,08/05/2020,07/22/2020 SEASONAL INFLUENZA, PF, 6 M & [...] PM EST Office Visit General Internal Medicine [facility] [place] 200 [facility] [place] [address] Renata Waters MD 200 [facility] [place] [address] 06/30/2023 3:00 PM EST Office Visit [facility] [place] [address] Regla Cherry PA-C [address] [place] [address] 09/28/2023 4:00 PM EDT Office Visit Rheumatology [address] [place] [address] Brando Degroot MD [facility] [place] [address] Pending Results Name Type Priority Associated Diagnoses Date /Time IRON SCREEN, INCLUDING TIBC Lab Routine Upper GI bleed Anemia, unspecified type 04/20/2023 3:01 PM EST FERRITIN Lab Routine Upper GI bleed Anemia, unspecified type 04/20/2023 3:01 PM EST COMPREHENSIVE METABOLIC PANEL Lab Routine Hospital discharge follow-up Intentional drug overdose, subsequent encounter 04/20/2023 3:01 PM EST CBC WITH WBC DIFFERENTIAL Lab Routine Hospital discharge follow-up Intentional drug overdose, subsequent encounter 04/20/2023 3:01 PM EST CBC Lab Routine Hospital discharge follow-up Intentional drug overdose, subsequent encounter 04/20/2023 3:01 PM EST DIFFERENTIAL, AUTOMATED Lab Routine Hospital discharge follow-up Intentional drug overdose, subsequent encounter 04/20/2023 3:01 PM EST Health Maintenance Due Date Last [...] as of this encounter Visit Diagnoses Diagnosis Upper GI bleed Hemorrhage of gastrointestinal tract, unspecified Anemia, unspecified type Hospital discharge follow-up Other follow-up examination Intentional drug overdose, subsequent encounter documented in this encounter Care Teams Fish Fryer Relationship Specialty Start Date End Date Renata Waters MD [address] [place] [address] PCP - General Internal Medicine 05/10/21 documented as of this encounter
--- OUTSIDE RECORDS SUMMARY | 2023-04-30 23:37 | External Medical Summary ---
Author Name Unknown Address Unknown Organization K09:[facility] - [address] [place] [address] Laboratory Report Ordering Provider Test Date Status ZOHAIB PHILIPPE 04/20/2023 15:01:51 Final Observation Date Value Abnormality Reference (Units ) Status BUN 04/20/2023 15:01:51 16 6-20 (mg/dL) Final Creatinine 04/20/2023 15:01:51 1.0 0.6-1.2 (mg/dL) Final Glomerular filtration rate/1.73 sq M.predicted [Volume Rate/Area] in Serum, Plasma or Blood by Creatinine-based formula (CKD-EPI) 04/20/2023 15:01:51 >90 >=60 (mL/min) Final eGFR is calculated based on the CKD-EPI 2020 equation SODIUM 04/20/2023 15:01:51 139 135-146 (m mol/L) Final Potassium 04/20/2023 15:01:51 4.4 3.5-5.1 (m mol/L) Final Cl 04/20/2023 15:01:51 105 98-107 (mm ol/L) Final CO2 04/20/2023 15:01:51 24 22-32 (mmo l/L) Final Anion gap 04/20/2023 15:01:51 10 7-15 (mmol /L) Final Glucose 04/20/2023 15:01:51 90 70-120 (mg /dL) Final Albumin 04/20/2023 15:01:51 4.2 3.8-5.0 (g /dL) Final AST (Aspartate aminotransferase) 04/20/2023 15:01:51 25 10-50 (U/L) Fin al Alk Phos 04/20/2023 15:01:51 86 35-130 (U/ L) Final Bilirubin, Total 04/20/2023 15:01:51 0.5 <=1 .2 (mg/dL) Final Calcium 04/20/2023 15:01:51 9.9 8.4-10.2 ( mg/dL) Final Protein 04/20/2023 15:01:51 7.3 6.0-8.3 (g /dL) Final ALT (Alanine aminotransferase) 04/20/2023 15:01:51 85 Above high normal 10-50 (U/L) Final Performing Location [facility] [address] [place] [address]
--- OUTSIDE RECORDS SUMMARY | 2023-04-30 23:37 | External Medical Summary ---
Author Name Unknown Address Unknown Organization K09:[facility] [place] [address] Laboratory Report Ordering Provider Test Date Status ZOHAIB PHILIPPE 04/20/2023 15:01:51 Final Observation Date Value Abnormality Reference (Units ) Status Nucleated erythrocytes/100 leukocytes [Ratio] in Blood by Automated count 04/20/2023 15:01:51 Final Schistocytes 04/20/2023 15:01:51 Few Abnormal None Seen Final Performing Location [facility] [place] [address]
--- OUTSIDE RECORDS SUMMARY | 2023-04-30 23:37 | External Medical Summary | Summary of Care ---
Author Name Unknown Organization [facility] Address [address] [place] [address] Phone [phone] Care Team Providers Care Ore Fielder Name Role Phone Renata Waters MD Primary Care Provider [phone] Reason for Referral * Evaluate & Treat - Unlimited Visits (Within 10 days (routine)) - Pending Review Specialty Diagnoses / Procedures Referred By Delia amaya Referred To Contact Otolaryngology Diagnoses Vocal cord dysfunction Gregoria Blair MD [facility] [place] [address] Referral ID Status Reason Start Date Expiration Date Visits Requested Visits Authorized [id number] Pending Review Specialty Services Required 3 [phone] Question Answer Referral Priority Within 10 days (routine) Where should this appointment be scheduled? [facility] Reason for Referral Throat Conditions Specific Condition: Dysphagia (swallowing concerns) Comments Recent post intubation, was at [facility], suicidal attempt, post extubation, dysphonia, aspiration. Rule out Vocal cord damage. Thanks. * Evaluate & Treat - Unlimited Visits (Within 10 days (routine)) - Pending Review Specialty Diagnoses / Procedures Referred By Delia amaya Referred To Contact Podiatry Diagnoses Pain of toe of left foot Gregoria Blair MD [address] [place] [address] Referral ID Status Reason Start Date Expiration Date Visits Requested Visits Authorized [id number] Pending Review Specialty Services Required 3 999 [...] [employer] [address] [place] [address] Gregoria Blair MD 200 [facility] [place] [address] Suicidal behavior with attempted self-injury (HCC)*; Hospital discharge follow-up; URTI (acute upper respiratory infection); Rheumatoid arthritis of multiple sites with negative rheumatoid factor (HCC); BMI 38.0-38.9,adult; Schizophrenia, unspecified type (HCC); RONI (generalized anxiety disorder); Obstructive sleep apnea, adult; Gastroesophageal reflux disease without esophagitis; Pain of toe of left foot; Vocal cord dysfunction; Intentional drug overdose, subsequent encounter Allergies Active [...] the skin every 14 days. 2 Each 06/22/2022 Active Additional Information Patient not taking.Reported on 04/20/2023 Gabapentin 100 MG Oral Capsule (Neurontin) Take 4 Capsules by mouth in the morning and 4 Capsules in the evening. 0 Active lamoTRIgine 25 MG Oral Tablet (LaMICtal)Indicat ions:in pm Take 4 Tablets by mouth at bedtime. 0 07/30/2022 Active [place]-3 1000 MG Oral Capsule Take 2 Capsules [...] (generalized anxiety disorder) 05/22/2015 Rheumatoid arthritis of [facility] sites with negative rheumatoid factor Gastroesophageal reflux [...] sleep. Pt has been followed up by case consultant and specialists. As per the review of [...] have received flu shot and tdap at [facility] and advised to get records. Med changes: Lamictal dosage was increased to 100 mg q.p.m., gabapentin increased from 200 mg to 400 mg twice a day. Pt sees Counsellor regularly and will be seeing psychiatrist at [facility] soon. 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 lamoTRIgine 25 MG Oral Tablet (LaMICtal) Take 4 Tablets by mouth at bedtime. [place]-3 1000 MG Oral Capsule Take 2 Capsules [...] podiatry and ENT documented in this encounter Plan of Treatment Upcoming Encounters Date Type Department Care Team (Late st Contact Info) Description 05/25/2023 2:00 PM EST Office Visit General Internal Medicine [facility] [place] 200 [facility] [place] [address] Renata Waters MD [address] [place] [address] 06/30/2023 3:00 PM EST Office Visit Otol[facility]ology [facility] [address] [place] [address] Regla Cherry PA-C [address] [place] [address] 09/28/2023 4:00 PM EDT Office Visit Rheumatology [facility] [address] [place] [address] Brando Degroot MD [address] [facility] [place] [address] Pending Results Name Type Priority Associated Diagnoses Date /Time COMPREHENSIVE METABOLIC PANEL Lab Routine Hospital discharge follow-up Intentional drug overdose, subsequent encounter 04/20/2023 3:01 PM EST CBC WITH WBC DIFFERENTIAL Lab Routine Hospital discharge follow-up Intentional drug overdose, subsequent encounter 04/20/2023 3:01 PM EST Scheduled Orders Name Type Priority Associated Diagnoses Orde r Schedule COMPREHENSIVE METABOLIC PANEL Lab Routine Hospital discharge follow-up Intentional drug overdose, subsequent encounter Expected: 04/20/2023 (Approximate), Expires: 04/19/2024 CBC WITH WBC DIFFERENTIAL Lab Routine Hospital discharge follow-up Intentional drug overdose, subsequent encounter Expected: 04/20/2023 (Approximate), Expires: 04/20/2024 Scheduled Referrals Name Type Priority Associated Diagnoses [...] as of this encounter Visit Diagnoses Diagnosis Suicidal behavior [...] vocal cords Intentional drug overdose, subsequent encounter documented in this encounter Care Teams Ore Fielder Relationship Specialty Start Date End Date Renata Waters MD 200 [place] [address] PCP - General Internal Medicine 05/10/21 documented as of this encounter
--- OUTSIDE RECORDS SUMMARY | 2023-04-30 23:37 | External Medical Summary | Summary of Care ---
Author Name Unknown Organization [facility] Address [address] [place] [address] Phone [phone] Care Team Providers Care Line Tender Flakeboard Name Role Phone Renata Waters MD Primary Care Provider [phone] Reason for Visit * Reason Onset Date Comments Hospital Follow-Up 04/05/2023 Encounter Details Date Type Department Care Team (Late st Contact Info) Description 04/05/2023 Telephone General Internal Medicine [facility] 200 [facility] [place] [id number] Renata Waters MD 200 [facility] [address] Hospital Follow-Up Allergies Active Allergy Reactions Criticality Noted Date Comments Azithromycin 02/07/2021 rash documented as of this encounter (statuses as of 04/21/2023) Medications Medication Sig Dispensed Refills Start Date [...] by mouth at bedtime. 0 07/30/2022 Active [place]-3 1000 MG Oral Capsule Take 2 Capsules [...] as of this encounter (statuses as of 04/21/2023) Active Problems Problem Noted Date Diagnosed Date BMI 40.0-44.9, adult 11/30/2022 Encounter for therapeutic drug monitoring 2021 Schizophrenia 04/29/2021 BMI 38.0-38.9,adult 02/07/2021 Obstructive sleep apnea, adult 09/27/2017 RONI (generalized anxiety disorder) 05/22/2015 Rheumatoid arthritis of [facility] sites with negative rheumatoid factor Gastroesophageal reflux disease without esophagi tis Allergic sinusitis documented as of this encounter (statuses as of 04/21/2023) Immunizations Name Administration Dates Next Due COVID-19 mRNA, LNP-s, No Pre serve, 2-Dose Series (Sagge) 01/22/2021,08/05/2020,07/22/2020 SEASONAL INFLUENZA, PF, 6 M & [...] 2:40 PM EST Office Visit Wound Care, [facility] [address] [place] [address] Jacquie Peguero DPM [address] [place] [address] 05/25/2023 2:00 PM EST Office Visit General Internal Medicine [facility] [place] 200 [facility] [place] [address] Renata Waters MD 200 [facility] [place] [address] 06/30/2023 3:00 PM EST Office Visit Otolaryngology [facility] [address] [place] [address] Regla Cherry PA-C [address] [place] [address] 09/28/2023 4:00 PM EDT Office Visit Rheumatology [address] [place] [address] Brando Degroot MD [facility] [place] [address] Health Maintenance Due Date Last Done Comments [...] filedocumented as of this encounter Care Teams Line Tender Flakeboard Relationship Specialty Start Date End Date Renata Waters MD [address] [place] [address], [place] [address] PCP - General Internal Medicine 05/10/21 documented as of this encounter
--- OUTSIDE RECORDS SUMMARY | 2023-04-30 23:37 | External Medical Summary ---
Author Name Unknown Address Unknown Organization K09:[facility] [place] [address] Laboratory Report Ordering Provider Test Date Status ZOHAIB PHILIPPE 04/20/2023 15:01:51 Final Observation Date Value Abnormality Reference (Units ) Status SYNC LEUKOCYTES IN BLOOD BY AUTOMATED COUNT 04/20/2023 15:01:51 7.93 4.00-10.80 (K/uL) Final Segs 04/20/2023 15:01:51 55.9 40.0-75.0 (%) Final Lymphs % 04/20/2023 15:01:51 31.7 18.0-42.0 (%) Final Monos 04/20/2023 15:01:51 10.2 1.0-11.0 (%) Final Eosinophils 04/20/2023 15:01:51 1.9 0.0-6.0 (%) Final Basos 04/20/2023 15:01:51 0.3 0.0-2.0 (%) Final Absolute Segs 04/20/2023 15:01:51 4.44 1.80-7.70 (K/uL) Final Lymphs, absolute 04/20/2023 15:01:51 2.51 1.00-4.80 (K/ul) Final Monos, Abs 04/20/2023 15:01:51 0.81 0.00-1.10 (K/uL) Final Eos, Abs 04/20/2023 15:01:51 0.15 0.00-0.70 (K/uL) Final Basos, Abs 04/20/2023 15:01:51 0.02 0.00-0.20 (K/uL) Final Performing Location [facility] [place] [address]
--- OUTSIDE RECORDS SUMMARY | 2023-04-30 23:37 | External Medical Summary | Summary of Care ---
Author Name Unknown Organization [facility] Address [address] [place] [address] Phone [phone] Care Team Providers Care Dishroom Attendant Name Role Phone Renata Waters MD Primary Care Provider [phone] Reason for Referral * Evaluate & Treat - Unlimited Visits (Within 10 days (routine)) - Pending Review Specialty Diagnoses / Procedures Referred By Delia amaya Referred To Contact Otolaryngology Diagnoses Vocal cord dysfunction Gregoria Blair MD [facility] [address] [place] [address] Referral ID Status Reason Start Date Expiration Date Visits Requested Visits Authorized [id number] Pending Review Specialty Services Required 3 999 999 Question Answer Referral Priority Within 10 days (routine) Where should this appointment be scheduled? [facility] Reason for Referral Throat Conditions Specific Condition: Dysphagia (swallowing concerns) Comments Recent post intubation, was at [facility], suicidal attempt, post extubation, dysphonia, aspiration. Rule out Vocal cord damage. Thanks. * Evaluate & Treat - Unlimited Visits (Within 10 days (routine)) - Pending Review Specialty Diagnoses / Procedures Referred By Delia amaya Referred To Contact Podiatry Diagnoses Pain of toe of left foot Gregoria Blair MD [address] [place] [address] Referral ID Status Reason Start Date Expiration Date Visits Requested Visits Authorized [id number] Pending Review Specialty Services Required 3 999 [...] [employer] [address] [place] [address] Gregoria Blair MD [address] [facility] [place] [address] Suicidal behavior with attempted self-injury (HCC)*; Hospital [...] by mouth at bedtime. 0 07/30/2022 Active [place]-3 1000 MG Oral Capsule Take 2 Capsules [...] (generalized anxiety disorder) 05/22/2015 Rheumatoid arthritis of [facility] sites with negative rheumatoid factor [...] Pt has been followed up by case management coordinator and specialists. As per the review of [...] have received flu shot and tdap at [facility] and advised to get records. Med changes: Lamictal dosage was increased to 100 mg q.p.m., gabapentin increased from 200 mg to 400 mg twice a day. Pt sees Counsellor regularly and will be seeing psychiatrist at [facility] soon. Patient Active Problem List Diagnosis Code Rheumatoid arthritis of multiple sites with negative rheumatoid factor ([facility]) M06.09 Gastroesophageal reflux disease without esophagitis K21.9 Allergic sinusitis J30.9 BMI 38.0-38.9,adult Z68.38 Schizophrenia ([facility]) F20.9 Encounter for therapeutic drug monitoring Z51.81 RONI (generalized anxiety disorder) F41.1 Obstructive sleep apnea, adult G47.33 BMI 40.0-44.9, adult ([facility]) Z68.41 Current Outpatient Medications Medication Sig Dispense Refill Cetirizine HCl 10 MG Oral Tablet Take 1 Tablet by mouth in the morning. lamoTRIgine 25 MG Oral Tablet (LaMICtal) Take 4 Tablets by mouth at bedtime. [place]-3 1000 MG Oral Capsule Take 2 Capsules [...] Office Visit General Internal Medicine [address] [place] [address] [facility] [place] [address] Renata Waters MD [address] [place] [address] 06/30/2023 3:00 PM EST Office Visit Otolaryngology [facility] [address] [place] [address] Regla Cherry PA-C [address] [place] [address] 09/28/2023 4:00 PM EDT Office Visit Rheumatology [facility] [address] [place] [address] Brando Degroot MD [address] [place] [address] Pending Results Name Type Priority Associated Diagnoses [...] encounter documented in this encounter Care Teams Dishroom Attendant Relationship Specialty Start Date End Date Renata Waters MD [address] [place] [address] PCP - General Internal Medicine 05/10/21 documented as of this encounter
[2023-05-01] MEDS ORDERED: hydrOXYzine HCl 25 MG TAB PO PRN (01:18)
[2023-05-01] MEDS ORDERED: VANCOMYCIN CONSULT ACTIVE PRN (01:18)
[2023-05-01] MEDS ORDERED: VANCOMYCIN HCL 2,750 MG in SODIUM CHLORIDE 0.9% 500 ML IV STA (01:44)
[2023-05-01] MEDS: GABAPENTIN 400 MG CAP PO SCH ×3 (02:10→20:49)
[2023-05-01] MEDS: lamoTRIgine 100 MG TAB PO SCH ×2 (02:11→20:49)
[2023-05-01] MEDS: risperiDONE 0.5 MG TABLET PO SCH ×3 (02:11→20:49)
[2023-05-01] MEDS: SPIRONOLACTONE 25 MG TAB PO SCH ×3 (02:12→17:09)
[2023-05-01] MEDS: hydrOXYzine HCl 25 MG TAB PO PRN ×2 (02:13→20:52)
[2023-05-01] MEDS: SODIUM CHLORIDE 0.9% 1,000 ML IV SCH ×2 (02:13→09:01)
[2023-05-01] MEDS: PIPERACILLIN/TAZOBACTAM 4.5 GM in DEXTROSE 5% MINI-B 100 ML IV SCH ×3 (02:14→17:17)
--- NOTE | 2023-05-01 02:43 | History & Physical Report ---
Date of Service April 30, 2023 Assessment & Plan (1) Infection of left foot: Plan: 27-year-old transgender male who identifies as female and prefers the name Ethel with past medical history significant for GERD, obstructive apnea CPAP intolerance, seronegative rheumatoid arthritis, schizoaffective disorder, anxiety/mood disorder, ADHD, and anosmia, secondary to congenital nasal septal deviation s/p surgery who was recently in the hospital for acute metabolic encephalopathy due to drug overdose and alcohol and anoxia with acute respiratory failure with hypoxia and hypercarbia and aspiration pneumonia and was intubated and treated with IV antibiotics and he also noted to be galactomannan antigen positive and ID recommend no treatment and had multiple electrolyte abnormalities which were repleted and he also had episode of bloody emesis which was treated with IV Protonix ,GI saw the patient and thought there was no indication for EGD and there was a question of possible esophageal dysfunction and he was also was sent to psychiatric floor but upon positive for rhinovirus was transferred back to medical floor for droplet precautions and was discharged home on April 14 2023. During the hospitalization he was also treated for left small toe infection. He was discharged on boot and weight bearing as tolerated and to follow up with podiatry. As infection of left small toe getting worse he came to the ER today. Imaging study shows possible osteomyelitis. Says black discoloration of the left small toe getting worse. Has pain in that toe. He is ambulating slowly with cane. Denies any fevers. Has some headache. No blurred visions. No runny nose. No cough. Currently no chest pain or shortness of breath. No nausea. No abdominal pain. Resting comfortably and hemodynamic stable. Infection of the left small toe Black discoloration Ongoing Possible osteomyelitis Empiric Zosyn and vancomycin Follow cultures Ortho consult in a.m. History of schizoaffective disorder, bipolar type Continues home medications of Lamictal, gabapentin, and risperidone Transgender who identifies as female On estradiol, finasteride, and spironolactone Rheumatoid arthritis Seems to be on Humira Follow up with rheumatology Obesity Needs counseling DVT prophylaxis SCDs for now Disposition medical floor Full code History of Present Illness Chief Complaint: Left small toe infection Primary Care Provider: Renata Waters MD 27-year-old transgender male who identifies as female and prefers the name Ethel with past medical history significant for GERD, obstructive apnea CPAP intolerance, seronegative rheumatoid arthritis, schizoaffective disorder, anxiety/mood disorder, ADHD, and anosmia, secondary to congenital nasal septal deviation s/p surgery who was recently in the hospital for acute metabolic encephalopathy due to drug overdose and alcohol and anoxia with acute respiratory failure with hypoxia and hypercarbia and aspiration pneumonia and was intubated and treated with IV antibiotics and he also noted to be galactomannan antigen positive and ID recommend no treatment and had multiple electrolyte abnormalities which were repleted and he also had episode of bloody emesis which was treated with IV Protonix ,GI saw the patient and thought there was no indication for EGD and there was a question of possible esophageal dysfunction and he was also was sent to psychiatric floor but upon positive for rhinovirus was transferred back to medical floor for droplet precautions and was discharged home on April 14 2023. During the hospitalization he was also treated for left small toe infection. He was discharged on boot and weight bearing as tolerated and to follow up with podiatry. As infection of left small toe getting worse he came to the ER today. Imaging study shows possible osteomyelitis. Says black discoloration of the left small toe getting worse. Has pain in that toe. He is ambulating slowly with cane. Denies any fevers. Has some headache. No blurred visions. No runny nose. No cough. Currently no chest pain or shortness of breath. No nausea. No abdominal pain. Resting comfortably and hemodynamic stable. Past medical history. As mentioned above Past surgical history. EGD, laparoscopic cholecystectomy, repair of nasal septum bilaterally. Social history. Single. No smoking. No alcohol. No drug use. Family history. Mother has depression, anxiety. Father has diabetes. Anxiety, rheumatoid arthritis. Paternal grandmother has lupus. Allergies Allergy/AdvReac Type Severity Reaction Status Date / Time azithromycin [From Zithromax] Allergy Intermediate Rash Verified 04/30/23 22:18 Home Medications Medication Instructions Recorded Confirmed Type estradiol 2 mg tablet 2 mg PO BID 04/30/23 04/30/23 History finasteride 5 mg tablet 5 mg PO DAILY 04/30/23 04/30/23 History gabapentin 100 mg capsule 400 mg PO BID 04/30/23 04/30/23 History hydroxyzine HCl 25 mg tablet 25 mg PO Q4 PRN Anxiety 04/30/23 04/30/23 History hydroxyzine HCl 25 mg tablet 50 mg PO HS PRN Insomnia 04/30/23 04/30/23 History lamotrigine 25 mg tablet 100 mg PO QPM 04/30/23 04/30/23 History omeprazole 40 mg capsule,delayed 40 mg PO QAM 04/30/23 04/30/23 History release risperidone 0.5 mg tablet 0.25 mg PO BID 04/30/23 04/30/23 History spironolactone 50 mg tablet 50 mg PO BID 04/30/23 04/30/23 History Past Med/Surg History Medical History Sore throat Schizoaffective disorder, bipolar type Encounter for pre-operative examination Vermiculation Suicidal ideations Rheumatoid arthritis seronegative Surgical History (Updated 04/11/23 @ 00:10 by Ivan Hufmfan) No significant past surgical history Family History Other Back pain Social History Smoking Status: Never smoker Second Hand Exposure: No; Do You Dip or Chew Tobacco: No; Hx Alcohol Use: Yes Alcohol type: wine Hx Substance Use: No Preferred Language: Italian Communication Ability: Effective Communication Ability Comment: unable to assess currently intubated Chaplaincy Required: No Beliefs That Will Affect Care: None marital status: Single Current Living Situation: Alone and Other Current Living Situation Comment: student current occupational status: student Feels Safe at Home: Yes Safety Concerns: Feels Safe At This Time Gender Identity: Transgender Female Assistive Devices: Cane, Glasses and Special Shoe Assistive Devices Comment: cast shoe on left foot Review of Systems Review of Systems: All systems reviewed & are unremarkable except as noted in HPI & below Physical Exam Physical Exam: General- Not in distress Head- atraumatic Eyes- PERRL. ENT- oropharynx clear Neck- supple, no JVD. Lungs- clear to auscultation , no wheezing or crackles. Heart- regular rhythm; no murmur, no gallop. Abdomen- normal bowel sounds, soft, nontender, no distension. Extremities- Left small toe is erythematous and black discoloration with drainage seen. black discoloration extending below left small toe. Neuro- alert, oriented x 3; PERRL no facial palsy; no dysarthria; moves extremities. Results & Data Results & Data Vital Signs (Past 12 Hours) Vital Signs Temp Pulse Pulse Resp BP BP Pulse Ox 04/30/23 22:00 85 18 127/92 99 04/30/23 20:59 87 19 127/75 98 04/30/23 17:56 36.6 C 101 H 20 118/78 97 O2 Del Method 04/30/23 22:00 Room Air 04/30/23 20:59 04/30/23 17:56 Room Air Diagnostic Findings Laboratory Results WBC 8.31 K/ul (4.8-10.8) 04/30/23 18:24 RBC 4.90 M/uL (4.70-6.10) 04/30/23 18:24 Hgb 13.0 g/dl (14.0-18.0) L 04/30/23 18:24 Hct 39.3 % (42.0-52.0) L 04/30/23 18:24 MCV 80.2 fL (80.0-100.0) 04/30/23 18:24 MCH 26.5 pg (25.0-34.0) 04/30/23 18:24 MCHC 33.1 g/dL (32.0-36.0) 04/30/23 18:24 RDW Std Deviation 55.4 fL (36.4-46.3) H 04/30/23 18:24 RDW Coeff of Rene 18.9 % (11.5-14.5) H 04/30/23 18:24 Plt Count 343 K/uL (130-400) 04/30/23 18:24 MPV 10.0 fL (9.4-12.4) 04/30/23 18:24 Immature Gran % (Auto) 0.2 % 04/30/23 18:24 Neut % (Auto) 59.1 % 04/30/23 18:24 Lymph % (Auto) 29.8 % 04/30/23 18:24 [place] % (Auto) 9.1 % 04/30/23 18:24 Eos % (Auto) 1.2 % 04/30/23 18:24 Baso % (Auto) 0.6 % 04/30/23 18:24 Neut # (Auto) 4.90 K/uL (1.40-6.50) 04/30/23 18:24 Lymph # (Auto) 2.48 K/uL (1.20-3.40) 04/30/23 18:24 [place] # (Auto) 0.76 K/uL (0.11-0.59) H 04/30/23 18:24 Eos # (Auto) 0.10 K/uL (0.00-0.50) 04/30/23 18:24 Baso # (Auto) 0.05 K/uL (0.00-0.20) 04/30/23 18:24 Immature Gran # (Auto) 0.02 K/uL (0.01-0.20) 04/30/23 18:24 ESR 41 mm/hr (0-15) H 04/30/23 18:24 Sodium 134 mmol/L (136-145) L 04/30/23 18:24 Potassium 3.9 mmol/L (3.5-5.1) 04/30/23 18:24 Chloride 105 mmol/L (98-107) 04/30/23 18:24 Carbon Dioxide 20 mmol/L (21-32) L 04/30/23 18:24 Anion Gap 9 (3-11) 04/30/23 18:24 BUN 13 mg/dl (6-23) 04/30/23 18:24 Creatinine 0.93 mg/dl (0.6-1.4) 04/30/23 18:24 Est Cr Clr Drug Dosing Not Reportable 04/30/23 18:24 Est GFR ( Amer) 131.8 ml/min 04/30/23 18:24 Est GFR (Non-Af Amer) 113.7 ml/min 04/30/23 18:24 BUN/Creatinine Ratio 14.0 (10-20) 04/30/23 18:24 Glucose 110 mg/dl (70-99(Fasting)) H 04/30/23 18:24 Lactate 1.2 mmol/L (0.4-2.0) 04/30/23 18:24 Calcium 9.1 mg/dl (8.6-10.3) 04/30/23 18:24 Total Bilirubin 0.5 mg/dl (0.2-1.0) 04/30/23 18:24 AST 20 U/L (13-39) 04/30/23 18:24 ALT 52 U/L (7-52) 04/30/23 18:24 Alkaline Phosphatase 91 U/L (34-104) 04/30/23 18:24 C-Reactive Protein < 0.50 mg/dl (0-0.5) 04/30/23 18:24 Total Protein 7.4 gm/dl (6.0-8.3) 04/30/23 18:24 Albumin 4.0 gm/dl (3.4-5.0) 04/30/23 18:24 Globulin 3.4 gm/dl (2.5-4.0) 04/30/23 18:24 Albumin/Globulin Ratio 1.2 (0.9-2) 04/30/23 18:24 Procalcitonin < 0.05 ng/ml (0-0.5) 04/30/23 18:08 Impressions Foot X-Ray 04/30/23 17:58 XR foot LT min 3V routine CLINICAL HISTORY: 5th digit necrosis COMPARISON: Left foot radiographs April 06, 2023. FINDINGS: Alignment of the left foot is anatomic. Tarsometatarsal joints are intact. Marked soft tissue swelling of the left fifth toe is again noted. There has been interval development of suspected erosion of the medial distal aspect of the proximal phalanx of the left fifth toe. There are also possible erosions of the middle and distal phalanges of the left fifth toe. No acute fractures are identified. IMPRESSION: Redemonstration of marked soft tissue swelling of the left fifth toe. Suspected interval development of erosions of the left fifth proximal, middle and distal phalanges, as described above. The findings are suspicious for acute osteomyelitis. MRI could be obtained as indicated. ACT 112: Negative or not required by law. Electronically signed by: Cuate You M.D. 04/30/2023 6:[address] 04/30/23 20:40 Exam(s): CT LEFT FOOT Without Contrast EXAM: CT Left Lower Extremity Without Intravenous Contrast, Foot CLINICAL HISTORY: Reason for exam: osteomyelitis. TECHNIQUE: Axial computed tomography images of the left foot without intravenous contrast. CTDI is 24.91 mGy and DLP is 515.44 mGy-cm. Automated exposure control was utilized for the study. A dose lowering technique was utilized adhering to the principles of ALARA. COMPARISON: No relevant prior studies available. FINDINGS/IMPRESSION: Ulcer along the plantar, lateral aspect of the fifth metatarsal. Focal osteopenia in the fifth metatarsal head, concerning for early osteomyelitis. This should be confirmed with MRI. Severe soft tissue skin thickening and phlegmonous change in the fifth toe, consistent with infection. No fluid collection or abscess. Electronically signed by: Alexandre Murillo MD 04/30/23 22:50 PM Code Status & VTE Plan VTE Prophylaxis Plan VTE Prophylaxis will be ordered: Yes
[2023-05-01 05:49] LABS: Basophils # (auto) 0.05 K/uL (0.00-0.20); Basophils % (auto) 0.5 %; Eosinophils # (auto) 0.13 K/uL (0.00-0.50); Eosinophils % (auto) 1.3 %; Hematocrit (blood only) 34.2 % (42.0-52.0); Hemoglobin 10.9 g/dl (14.0-18.0); Immature Granulocytes # (auto) 0.03 K/uL (0.01-0.20); Immature Granulocytes % (auto) 0.3 %; Lymphocytes # (auto) 3.12 K/uL (1.20-3.40); Lymphocytes % (auto) 30.6 %; Mean Corpuscular Hemoglobin 26.5 pg (25.0-34.0); Mean Corpuscular Hgb Conc 31.9 g/dL (32.0-36.0); Mean Corpuscular Volume 83.2 fL (80.0-100.0); Mean Platelet Volume 9.6 fL (9.4-12.4); Monocytes # (auto) 0.91 K/uL (0.11-0.59); Monocytes % (auto) 8.9 %; Neutrophils # (auto) 5.94 K/uL (1.40-6.50); Neutrophils % (auto) 58.4 %; Platelet Count 289 K/uL (130-400); RDW Coefficient of Variation 18.9 % (11.5-14.5); Red Blood Count 4.11 M/uL (4.70-6.10); White Blood Count 10.18 K/ul (4.8-10.8)
[2023-05-01 06:02] LABS: Calcium 8.2 mg/dl (8.6-10.3); Creatinine Clr Calc Pharmacy 177.4 ml/min; Est GFR (African American) 130.1 ml/min; Est GFR (Non-African American) 112.2 ml/min; Magnesium 1.8 mg/dl (1.7-2.4); Potassium 3.8 mmol/L (3.5-5.1)
--- NOTE | 2023-05-01 07:06 | Hospitalist Progress Note ---
Date of Service May 01, 2023 Assessment & Plan (1) Infection of left foot: Plan: Ms. Mckeon is a 27-year-old transgender male who identifies as female and prefers the name Ethel with past medical history significant for GERD, obstructive apnea CPAP intolerance, seronegative rheumatoid arthritis, schizoaffective disorder, anxiety/mood disorder, ADHD, and anosmia, secondary to congenital nasal septal deviation s/p surgery who recently had prolonged admi ssion for suicidal attempt resulting in acute respiratory failure requiring mechanical ventilation. During that time, a small hemorrhagic like blister formed on the left fifth digit. Podiatry evaluated toe with strong suspicion of bullous hemorrhagic dermatosis suspected. Patient follow up routinely in wound care clinic with concerns of progression on 04/28. Patient presented due to continued worsening and redness at base of lesion. #Necrotic left fifth digit, c/f osteomyelitis -MRI +OM, infectious work up pending -Continue empiric abx -Consult Ortho -Continent on next steps, will consult ID for abx recommendations #History of schizoaffective disorder, bipolar type Continues home medications of Lamictal, gabapentin, and risperidone #Transgender who identifies as female On estradiol, finasteride, and spironolactone #Rheumatoid arthritis Seems to be on Humira Follows with hematology Obesity Needs counseling DVT prophylaxis SCDs for now Disposition medical floor Full code Admission and Anticipated Discharge Date Admission Date: April 30, 2023 Subjective NAEO Reports generally feeling weak. Denies much pain in the digit, just with certain positions/weight pressure on left foot Denies fevers, chills, night sweats Review of Systems Review of Systems: All systems reviewed & are unremarkable except as noted in Subjective Physical Exam Constitutional: WD/WN, vitals as above Respiratory: normal respiratory effort, lungs clear to auscultation Cardiovascular: RRR, no murmur, no edema Musculoskeletal: left fifth digit black, necrotic; surrounding erythema, but no noted purulence or foul odor Results & Data Results & Data Vital Signs (Past 12 Hours) Vital Signs Temp Pulse Resp BP Pulse Ox O2 Del Method 05/01/23 07:01 36.5 C 81 18 101/65 97 Room Air 05/01/23 01:20 Room Air 05/01/23 01:20 Room Air 05/01/23 01:20 36.9 C 94 H 20 124/88 99 Room Air 05/01/23 01:18 36.9 C 94 H 20 124/88 99 Room Air 05/01/23 00:00 90 15 129/98 97 04/30/23 22:00 85 18 127/92 99 Room Air 04/30/23 20:59 87 19 127/75 98 Laboratory Results Short CBC 04/30/23 05/01/23 Range/Units 18:24 05:30 WBC 8.31 10.18 (4.8-10.8) K/ul Hgb 13.0 L 10.9 L (14.0-18.0) g/dl Hct 39.3 L 34.2 L (42.0-52.0) % Plt Count 343 289 (130-400) K/uL BMP 04/30/23 05/01/23 18:24 05:30 Sodium 134 L 139 Potassium 3.9 3.8 Chloride 105 111 H Carbon Dioxide 20 L 22 BUN 13 15 Creatinine 0.93 0.94 Glucose 110 H 88 Calcium 9.1 8.2 L Liver Function 04/30/23 Range/Units 18:24 Total Bilirubin 0.5 (0.2-1.0) mg/dl AST 20 (13-39) U/L ALT 52 (7-52) U/L Alkaline Phosphatase 91 (34-104) U/L Albumin 4.0 (3.4-5.0) gm/dl Medications Administered Home Medications Medication Instructions Recorded Confirmed Last Taken estradiol 2 mg tablet 2 mg PO BID 04/30/23 04/30/23 Unknown finasteride 5 mg tablet 5 mg PO DAILY 04/30/23 04/30/23 Unknown gabapentin 100 mg capsule 400 mg PO BID 04/30/23 04/30/23 Unknown hydroxyzine HCl 25 mg tablet 25 mg PO Q4 PRN Anxiety 04/30/23 04/30/23 Unknown hydroxyzine HCl 25 mg tablet 50 mg PO HS PRN Insomnia 04/30/23 04/30/23 Unknown lamotrigine 25 mg tablet 100 mg PO QPM 04/30/23 04/30/23 Unknown omeprazole 40 mg capsule,delayed 40 mg PO QAM 04/30/23 04/30/23 Unknown release risperidone 0.5 mg tablet 0.25 mg PO BID 04/30/23 04/30/23 Unknown spironolactone 50 mg tablet 50 mg PO BID 04/30/23 04/30/23 Unknown Active Medications Generic Name Dose Route Start Last Admin Trade Name Kelvin PRN Reason Stop Dose Admin Gabapentin 400 mg 05/01/23 09:00 05/01/23 02:10 Gabapentin 400 Mg Cap PO 05/31/23 08:59 400 mg BID KIKA Administration Hydroxyzine HCl 50 mg 05/01/23 01:18 05/01/23 02:13 Hydroxyzine Hcl 25 Mg Tab PO 05/31/23 01:17 50 mg HS PRN Administration Insomnia Sodium Chloride 1,000 mls @ 125 mls/hr 05/01/23 01:18 05/01/23 02:13 Nss IV 05/31/23 01:17 125 mls/hr .Q8H KIKA Administration Piperacillin Sod/Tazobactam 100 mls @ 25 mls/hr 05/01/23 02:00 05/01/23 02:14 Sod 4.5 gm/ Dextrose IV 05/08/23 01:59 25 mls/hr Q8H KIKA Administration Protocol Lamotrigine 100 mg 05/01/23 21:00 05/01/23 02:11 Lamotrigine 100 Mg Tab PO 05/31/23 20:59 100 mg QPM KIKA Administration Risperidone 0.25 mg 05/01/23 09:00 05/01/23 02:11 Risperidone 0.5 Mg Tablet PO 05/31/23 08:59 0.25 mg BID KIKA Administration Spironolactone 50 mg 05/01/23 09:00 05/01/23 02:12 Spironolactone 25 Mg Tab PO 05/31/23 08:59 50 mg [id number] KIKA Administration
--- NOTE | 2023-05-01 08:08 | Pharmacy Report ---
Pharmacy PK ABX Note - Date of Service May 01, 2023 - Assessment and Plan Assessment 27 year old M receiving vancomycin/zosyn for treatment of possible left small toe osteo. CT imaging concerning for early osteo, MRI pending. Blood cultures/toe culture pending. Normal white count, afebrile. Plan Vancomycin * Loading dose: 2750 mg IV x 1 * Maintenance dose: 1250 mg IV every 8 hours * Regimen is predicted to achieve target AUC/PRINCESS of 400-600 mg/L.hr * Random level ordered for 05/02 @ 0800 Pharmacy will continue to follow and will adjust dose/frequency as necessary. Thank you. Pharmacy has transitioned to AUC monitoring for vancomycin. AUC/PRINCESS is the preferred PK/PD target and is associated with decreased risk of nephrotoxicity compared to traditional trough targets.
[2023-05-01] MEDS: FINASTERIDE 5 MG TAB PO SCH (08:54)
[2023-05-01] MEDS: estradioL 1 MG TAB PO SCH ×2 (08:54→20:48)
[2023-05-01] MEDS: PANTOprazole 40 MG TAB PO SCH (08:55)
[2023-05-01] MEDS: ADVANCED PROBIOTIC 1250 MG CAPSULE PO SCH (08:55)
[2023-05-01] MEDS: VANCOMYCIN HCL 1,250 MG in SODIUM CHLORIDE 0.9% 250 ML IV SCH ×2 (09:02→17:18)
--- NOTE | 2023-05-01 14:58 | Magnetic Resonance Report ---
MR foot LT w/o con HISTORY: Left fifth toe wound. Assess for osteomyelitis. c/f 5th digit osteomyelitis TECHNIQUE: Multiplanar multisequence MRI of the left forefoot was performed without contrast accordin g to standard departmental protocol. COMPARISON STUDY: Left foot CT 05/01/2023. FINDINGS: Soft tissue edema within the dorsum of the forefoot most pronounced laterally. There is als o soft tissue edema throughout the left fifth toe. No acute fracture or dislocation within the forefo ot. The Lisfranc joint is intact. The flexor and extensor tendons are normal and course, caliber, and signal intensity. There is abnormal marrow signal within the distal phalanx of the fifth toe. No abn ormal marrow signal within the proximal or middle phalanx of the fifth toe. Cortical irregularity at the distal phalanx of the fifth toe. IMPRESSION: Abnormal marrow signal and mild cortical irregularity at the distal phalanx of the left fifth toe. Th is is concerning for an osteomyelitis. ACT 112: Negative or not required by law. Electronically signed by: Abhishek Ohara M.D. 05/01/2023 2:55 PM
[2023-05-01] MEDS ORDERED: TROLAMINE SALICYLATE 10% CRM 255 APPLN/85 GM TUBE EXT PRN (16:51)
[2023-05-01] MEDS: METHOCARBAMOL 500 MG TABLET PO PRN (17:10)
--- NOTE | 2023-05-01 19:46 | Orthopedic Consultation ---
Date of Consultation May 01, 2023 Assessment & Plan (1) Osteomyelitis: Patient seen and evaluated in room 318-1. Reviewed plain film, CT, and MRI images and findings. Discussed findings with Patient. Patient is requesting fifth toe amputation. Amputation scheduled for 05/02/23 10am. Thank you for allowing me to participate in the care of this Patient. (2) Infection of left foot: History of Present Illness Attending Physician: Skylar Hung MD [place] [address] History & Physical Report Signed Patient: JAVAD LEZAMA Admit Date: 04/30/23 MR#: [id number] Att Phy: Skylar Hung MD Acct ID: [id number] Shonna Phy: Renata Waters MD Date: 1995 Fam Phy: Age: 27 Location: 3E Sex: M Room/Bed: E318-1 cc: ~ *NOTICE TO RECEIVING DEMOCRAT/AGENCY This information is strictly Confidential and protected under [place] law. [place] law prohibits you from making any further disclosure of this information unless further disclosure is expressly permitted by the written consent of the person to whom it pertains or is authorized by law. A general authorization for the release of medical or other information is not sufficient for this purpose. Hospital accepts no responsibility if the information is made available to any other person, INCLUDING THE PATIENT. Date of Service April 30, 2023 Assessment & Plan (1) Infection of left foot: Plan: Patient is a 27-year-old transgender male who identifies as female seen at bedside in [facility]- for left fifth toe infection. Patient has a past medical history significant for GERD, obstructive apnea CPAP intolerance, seronegative rheumatoid arthritis, schizoaffective disorder, anxiety/mood disorder, ADHD, and anosmia, secondary to congenital nasal septal deviation s/p surgery. Patient last hospital confinement was in March 2023 for acute metabolic encephalopathy due to drug overdose and alcohol and anoxia with acute respiratory failure with hypoxia and hypercarbia and aspiration pneumonia and was intubated and treated with IV antibiotics. Patient was noted to be galactomannan antigen positive. ID recommend no treatment. Patient had multiple electrolyte abnormalities which were repleted. Patient also had episode of bloody emesis which was treated with IV Protonix. GI saw the patient and thought there was no indication for EGD and there was a question of possible esophageal dysfunction.Patient was also was sent to psych iatric floor but then tested positive for rhinovirus was transferred back to medical floor for droplet precautions. He was discharged home on April 14 2023. During previous hospitalization he was also treated for left fifth toe infection. He returns as it appears worsening. MRI now (+) Osteomyelitis phalanx left fifth toe. Allergies Allergy/AdvReac Type Severity Reaction Status Date / Time azithromycin [From Zithromax] Allergy Intermediate Rash Verified 04/30/23 22:18 Home Medications Medication Instructions Recorded Confirmed Type estradiol 2 mg tablet 2 mg PO BID 04/30/23 04/30/23 History finasteride 5 mg tablet 5 mg PO DAILY 04/30/23 04/30/23 History gabapentin 100 mg capsule 400 mg PO BID 04/30/23 04/30/23 History hydroxyzine HCl 25 mg tablet 25 mg PO Q4 PRN Anxiety 04/30/23 04/30/23 History hydroxyzine HCl 25 mg tablet 50 mg PO HS PRN Insomnia 04/30/23 04/30/23 History lamotrigine 25 mg tablet 100 mg PO QPM 04/30/23 04/30/23 History omeprazole 40 mg capsule,delayed 40 mg PO QAM 04/30/23 04/30/23 History release risperidone 0.5 mg tablet 0.25 mg PO BID 04/30/23 04/30/23 History spironolactone 50 mg tablet 50 mg PO BID 04/30/23 04/30/23 History Patient History Medical History Sore throat Schizoaffective disorder, bipolar type Encounter for pre-operative examination Vermiculation Suicidal ideations Rheumatoid arthritis seronegative Surgical History No significant past surgical history Family History Other Back pain Social History Smoking Status: Never smoker Second Hand Exposure: No; Do You Dip or Chew Tobacco: No; Hx Alcohol Use: Yes Alcohol type: wine Hx Substance Use: No Preferred Language: Bulgarian Communication Ability: Effective Communication Ability Comment: unable to assess currently intubated Rush Seater Required: No Beliefs That Will Affect Care: None marital status: Single Current Living Situation: Alone and Other Current Living Situation Comment: student current occupational status: student Feels Safe at Home: Yes Safety Concerns: Feels Safe At This Time Gender Identity: Transgender Female Assistive Devices: Cane, Glasses and Special Shoe Assistive Devices Comment: cast shoe on left foot Review of Systems Review of Systems: All systems reviewed & are unremarkable except as noted in Subjective Physical Exam Constitutional: well developed, well nourished, cooperative and comfortable Cardiovascular: Rate/Rhythm: regular rate and regular rhythm Vessels: posterior tibial pulses present and dorsalis pedis pulses present Musculoskeletal: Extremities: extremities normal to inspection Skin: + ulcer (Left fifth toe wound) Neurologic: moves all extremities Psychiatric: Orientation: alert and oriented x 3 Results & Data Vital Signs (Past 12 Hours) Vital Signs Temp Pulse Resp BP Pulse Ox O2 Del Method 05/01/23 15:18 36.3 C L 78 16 136/84 99 Room Air Diagnostic Findings [place], [place] [phone] Magnetic Resonance Report Patient: JAVAD LEZAMA Admit Date: 04/30/23 MR#: [id number] Address[address]: [address] Acct ID:[id number] Address2: [address] Date: 1995 [facility] Zip: [place] [address] Age: 27 Location: 3E Sex: M Room/Bed: [facility] Att Phy: Skylar Hung MD Diagnosis: LEFT SMALL TOE OSTEOMYELITIS Shonna Phy: Renata Waters MD Service Date: 05/01/23 Fam Phy: Interpreting Phy: Abhishek Ohara MDAdmit Phy: Jason Talbot MD Ordering Phy: Skylar Hung MD cc: ~ MR foot LT w/o con HISTORY: Left fifth toe wound. Assess for osteomyelitis. c/f 5th digit osteomyelitis TECHNIQUE: Multiplanar multisequence MRI of the left forefoot was performed without contrast according to standard departmental protocol. COMPARISON STUDY: Left foot CT 05/01/2023. FINDINGS: Soft tissue edema within the dorsum of the forefoot most pronounced laterally. There is also soft tissue edema throughout the left fifth toe. No acute fracture or dislocation within the forefoot. The Lisfranc joint is intact. The flexor and extensor tendons are normal and course, caliber, and signal intensity. There is abnormal marrow signal within the distal phalanx of the fifth toe. No abnormal marrow signal within the proximal or middle phalanx of the fifth toe. Cortical irregularity at the distal phalanx of the fifth toe. IMPRESSION: Abnormal marrow signal and mild cortical irregularity at the distal phalanx of the left fifth toe. This is concerning for an osteomyelitis. ACT 112: Negative or not required by law. Electronically signed by: Abhishek Ohara M.D. 05/01/2023 2:55 PM Dictated: 05/01/231451 Transcribed: 05/01/231451 (1) Osteomyelitis Laterality: left Osteomyelitis location: foot Osteomyelitis type: unspecified type Qualified Code(s): M86.9 - Osteomyelitis, unspecified
[2023-05-02] MEDS: PIPERACILLIN/TAZOBACTAM 4.5 GM in DEXTROSE 5% MINI-B 100 ML IV SCH ×3 (02:19→18:38)
[2023-05-02] MEDS: VANCOMYCIN HCL 1,250 MG in SODIUM CHLORIDE 0.9% 250 ML IV SCH (02:19)
[2023-05-02] MEDS ORDERED: VANCOMYCIN LEVEL ONE (08:00)
[2023-05-02 08:20] LABS: Hematocrit (blood only) 36.6 % (42.0-52.0); Hemoglobin 12.3 g/dl (14.0-18.0); Mean Corpuscular Hgb Conc 33.6 g/dL (32.0-36.0); Mean Corpuscular Volume 80.4 fL (80.0-100.0); Mean Platelet Volume 9.9 fL (9.4-12.4); Platelet Count 322 K/uL (130-400); RDW Coefficient of Variation 19.3 % (11.5-14.5); RDW Standard Deviation 56.4 fL (36.4-46.3); Red Blood Count 4.55 M/uL (4.70-6.10); White Blood Count 9.48 K/ul (4.8-10.8)
[2023-05-02 08:42] LABS: BUN Creatinine Ratio 11.5 (10-20); Calcium 9.2 mg/dl (8.6-10.3); Creatinine Clr Calc Pharmacy 173.7 ml/min; Est GFR (African American) 126.8 ml/min; Est GFR (Non-African American) 109.4 ml/min; Magnesium 1.9 mg/dl (1.7-2.4); Phosphorus 4.4 mg/dl (2.5-4.9); Potassium 3.9 mmol/L (3.5-5.1)
--- NOTE | 2023-05-02 09:10 | Anesthesiology Consultation ---
Date of Service May 02, 2023 Assessment & Plan Chart Review Chart Review: Acceptable Risk for Surgery and Patient NOT seen in Pre Admission Testing Consults Requested none ASA ASA3 Proposed Anesthesia Anesthesia Type: MAC History Surgery Operation Date: 05/02/23 06:55 Proposed Procedures p Amputation Toe left fifth toe(Left) - Cody Palm, CARLO, [place] Height/Weight Height: 6 ft 3 in Weight: 134.2 kg Allergies Allergy/AdvReac Type Severity Reaction Status Date / Time azithromycin [From Zithromax] Allergy Intermediate Rash Verified 04/30/23 22:18 Medications Home Medications Medication Instructions Recorded Confirmed Last Taken estradiol 2 mg tablet 2 mg PO BID 04/30/23 04/30/23 Unknown finasteride 5 mg tablet 5 mg PO DAILY 04/30/23 04/30/23 Unknown gabapentin 100 mg capsule 400 mg PO BID 04/30/23 04/30/23 Unknown hydroxyzine HCl 25 mg tablet 25 mg PO Q4 PRN Anxiety 04/30/23 04/30/23 Unknown hydroxyzine HCl 25 mg tablet 50 mg PO HS PRN Insomnia 04/30/23 04/30/23 Unknown lamotrigine 25 mg tablet 100 mg PO QPM 04/30/23 04/30/23 Unknown omeprazole 40 mg capsule,delayed 40 mg PO QAM 04/30/23 04/30/23 Unknown release risperidone 0.5 mg tablet 0.25 mg PO BID 04/30/23 04/30/23 Unknown spironolactone 50 mg tablet 50 mg PO BID 04/30/23 04/30/23 Unknown Active Medications Generic Name Dose Route Start Last Admin Trade Name Kelvin PRN Reason Stop Dose Admin Estradiol 2 mg 05/01/23 09:00 05/01/23 20:48 Estradiol 1 Mg Tab PO 05/31/23 08:59 2 mg BID KIKA Administration Finasteride 5 mg 05/01/23 09:00 05/01/23 08:54 Finasteride 5 Mg Tab PO 05/31/23 08:59 5 mg DAILY KIKA Administration Gabapentin 400 mg 05/01/23 09:00 05/01/23 20:49 Gabapentin 400 Mg Cap PO 05/31/23 08:59 400 mg BID KIKA Administration Hydroxyzine HCl 50 mg 05/01/23 01:18 05/01/23 20:52 Hydroxyzine Hcl 25 Mg Tab PO 05/31/23 01:17 50 mg HS PRN Administration Insomnia Piperacillin Sod/Tazobactam 100 mls @ 25 mls/hr 05/01/23 02:00 05/02/23 06:25 Sod 4.5 gm/ Dextrose IV 05/08/23 01:59 Infused Q8H KIKA Infusion Protocol Vancomycin HCl 1,250 mg/ 275 mls @ 200 mls/hr 05/01/23 10:00 05/02/23 03:55 Sodium Chloride IV 05/08/23 09:59 Infused Q8H KIKA Infusion Protocol Lactobacillus Acidophilus 2 cap 05/01/23 09:00 05/01/23 08:55 Advanced Probiotic 1250 Mg Capsule PO 05/31/23 08:59 2 cap DAILY KIKA Administration Lamotrigine 100 mg 05/01/23 21:00 05/01/23 20:49 Lamotrigine 100 Mg Tab PO 05/31/23 20:59 100 mg QPM KIKA Administration Methocarbamol 500 mg 05/01/23 16:50 05/01/23 17:10 Methocarbamol 500 Mg Tablet PO 05/31/23 16:49 500 mg TID PRN Administration spasm/aching Pantoprazole Sodium 40 mg 05/01/23 09:00 05/01/23 08:55 Pantoprazole 40 Mg Tab PO 05/31/23 08:59 40 mg QAM KIKA Administration Risperidone 0.25 mg 05/01/23 09:00 05/01/23 20:49 Risperidone 0.5 Mg Tablet PO 05/31/23 08:59 0.25 mg BID KIKA Administration Spironolactone 50 mg 05/01/23 09:00 05/01/23 17:09 Spironolactone 25 Mg Tab PO 05/31/23 08:59 50 mg BID17 KIKA Administration Past Medical History Medical History Sore throat Schizoaffective disorder, bipolar type Encounter for pre-operative examination Vermiculation Suicidal ideations Rheumatoid arthritis seronegative Exercise / Class Metabolic Activity II 4-5 Yardwork/Stairs/Walk up hill Past Family History Family History Other Back pain Past Surgical History Surgical History No significant past surgical history Past Anesthesia History No Hx of Anesthesia Complications and No Family Hx of Anesthesia Complications History of PONV No Hx of PONV and No Hx of Motion Sickness Social History Smoking Status: Never smoker Do You Dip or Chew Tobacco: No Hx Alcohol Use: Yes Alcohol type: wine alcohol intake frequency: holidays/special occasions only Alcohol Intake Frequency Comment: no alcohol w/ in the last month Hx Substance Use: No substance use type: does not use Physical Exam Vital Signs Last Vital Signs Temp 36.6 C 05/02/23 07:17 Pulse 72 05/02/23 07:17 Resp 16 05/02/23 07:17 BP 114/72 05/02/23 07:17 Pulse Ox 96 05/02/23 07:17 O2 Del Method Room Air 05/02/23 07:22 Testing Laboratory Results 05/02/23 07:50 05/02/23 07:50 04/30/23 18:26 Gram Stain - Final Toe Aerobic and Anaerobic Culture - Preliminary Staphylococcus aureus 04/30/23 18:24 Aerobic Blood Culture - Preliminary Blood No growth in Aerobic bottle after 24 hours. Anaerobic Blood Culture - Final 04/30/23 18:24 Aerobic Blood Culture - Preliminary Blood No growth in Aerobic bottle after 24 hours. Anaerobic Blood Culture - Final Electrocardiogram Date: 03/30/23 Findings: + SB @ (@ 52) Echocardiogram Date: 11/17/22 EF: 55% LV Function: normal RWMA: + none Valvular Disease: + no significant valvular disease
[2023-05-02] MEDS: risperiDONE 0.5 MG TABLET PO SCH ×2 (09:24→21:33)
[2023-05-02] MEDS: GABAPENTIN 400 MG CAP PO SCH ×2 (09:24→21:35)
[2023-05-02] MEDS: PANTOprazole 40 MG TAB PO SCH (09:26)
[2023-05-02] MEDS: ADVANCED PROBIOTIC 1250 MG CAPSULE PO SCH (09:27)
[2023-05-02] MEDS: FINASTERIDE 5 MG TAB PO SCH (09:27)
[2023-05-02] MEDS: SPIRONOLACTONE 25 MG TAB PO SCH ×2 (09:27→17:50)
[2023-05-02] MEDS: METHOCARBAMOL 500 MG TABLET PO PRN (11:05)
[2023-05-02] MEDS ORDERED: BUPIVACAINE 0.5 % 5 MG/1 ML MPF 30ML VIAL ONE (12:15)
--- NOTE | 2023-05-02 12:27 | Hospitalist Progress Note ---
Date of Service May 02, 2023 Assessment & Plan (1) Infection of left foot: Plan: Ms. Mckeon is a 27-year-old transgender male who identifies as female and prefers the name Ethel with past medical history significant for GERD, obstructive apnea CPAP intolerance, seronegative rheumatoid arthritis, schizoaffective disorder, anxiety/mood disorder, ADHD, and anosmia, secondary to congenital nasal septal deviation s/p surgery who recently had prolonged adm ission for suicidal attempt resulting in acute respiratory failure requiring mechanical ventilation. During that time, a small hemorrhagic like blister formed on the left fifth digit. Podiatry evaluated toe with strong suspicion of bullous hemorrhagic dermatosis suspected. Patient follow up routinely in wound care clinic with concerns of progression on 04/28. Patient presented due to continued worsening and redness at base of lesion. Podiatry evaluated patient on 05/01 and planned for amputation today. Patient eager for procedure to be completed. #Necrotic left fifth digit, c/f osteomyelitis -MRI +OM, infectious work up MSSA -Consult Ortho, planning for amputation -Consult ID for duration of abx treatment -Narrowed to cefazolin given MSSA -CBC ordered postoperative monitoring of hgb -PT/OT #History of schizoaffective disorder, bipolar type Continues home medications of Lamictal, gabapentin, and risperidone #Transgender who identifies as female On estradiol, finasteride, and spironolactone #Rheumatoid arthritis Seems to be on Humira Follows with hematology Obesity Needs counseling DVT prophylaxis SCDs for now Disposition medical floor Full code Admission and Anticipated Discharge Date Admission Date: April 30, 2023 Subjective NAEO Feels generally weak and denies any new symptoms, just notes feeling progressively weaker since last admission Physical Exam Constitutional: WD/WN, vitals as above Respiratory: normal respiratory effort, lungs clear to auscultation Cardiovascular: RRR, no murmur, no edema Results & Data Results & Data Vital Signs (Past 12 Hours) Vital Signs Temp Pulse Resp BP Pulse Ox O2 Del Method 05/02/23 07:22 Room Air 05/02/23 07:17 36.6 C 72 16 114/72 96 Room Air Laboratory Results Short CBC 05/02/23 Range/Units 07:50 WBC 9.48 (4.8-10.8) K/ul Hgb 12.3 L (14.0-18.0) g/dl Hct 36.6 L (42.0-52.0) % Plt Count 322 (130-400) K/uL BMP 05/02/23 07:50 Sodium 138 Potassium 3.9 Chloride 109 H Carbon Dioxide 20 L BUN 11 Creatinine 0.96 Glucose 90 Calcium 9.2 Medications Administered Home Medications Medication Instructions Recorded Confirmed Last Taken estradiol 2 mg tablet 2 mg PO BID 04/30/23 04/30/23 Unknown finasteride 5 mg tablet 5 mg PO DAILY 04/30/23 04/30/23 Unknown gabapentin 100 mg capsule 400 mg PO BID 04/30/23 04/30/23 Unknown hydroxyzine HCl 25 mg tablet 25 mg PO Q4 PRN Anxiety 04/30/23 04/30/23 Unknown hydroxyzine HCl 25 mg tablet 50 mg PO HS PRN Insomnia 04/30/23 04/30/23 Unknown lamotrigine 25 mg tablet 100 mg PO QPM 04/30/23 04/30/23 Unknown omeprazole 40 mg capsule,delayed 40 mg PO QAM 04/30/23 04/30/23 Unknown release risperidone 0.5 mg tablet 0.25 mg PO BID 04/30/23 04/30/23 Unknown spironolactone 50 mg tablet 50 mg PO BID 04/30/23 04/30/23 Unknown Active Medications Generic Name Dose Route Start Last Admin Trade Name Kelvin PRN Reason Stop Dose Admin Estradiol 2 mg 05/01/23 09:00 05/01/23 20:48 Estradiol 1 Mg Tab PO 05/31/23 08:59 2 mg BID KIKA Administration Finasteride 5 mg 05/01/23 09:00 05/02/23 09:27 Finasteride 5 Mg Tab PO 05/31/23 08:59 5 mg DAILY KIKA Administration Gabapentin 400 mg 05/01/23 09:00 05/02/23 09:24 Gabapentin 400 Mg Cap PO 05/31/23 08:59 400 mg BID KIKA Administration Hydroxyzine HCl 50 mg 05/01/23 01:18 05/01/23 20:52 Hydroxyzine Hcl 25 Mg Tab PO 05/31/23 01:17 50 mg HS PRN Administration Insomnia Piperacillin Sod/Tazobactam 100 mls @ 25 mls/hr 05/01/23 02:00 05/02/23 11:10 Sod 4.5 gm/ Dextrose IV 05/08/23 01:59 25 mls/hr Q8H KIKA Administration Protocol Lactobacillus Acidophilus 2 cap 05/01/23 09:00 05/02/23 09:27 Advanced Probiotic 1250 Mg Capsule PO 05/31/23 08:59 2 cap DAILY KIKA Administration Lamotrigine 100 mg 05/01/23 21:00 05/01/23 20:49 Lamotrigine 100 Mg Tab PO 05/31/23 20:59 100 mg QPM KIKA Administration Methocarbamol 500 mg 05/01/23 16:50 05/02/23 11:05 Methocarbamol 500 Mg Tablet PO 05/31/23 16:49 500 mg TID PRN Administration spasm/aching Pantoprazole Sodium 40 mg 05/01/23 09:00 05/02/23 09:26 Pantoprazole 40 Mg Tab PO 05/31/23 08:59 40 mg QAM KIKA Administration Risperidone 0.25 mg 05/01/23 09:00 05/02/23 09:24 Risperidone 0.5 Mg Tablet PO 05/31/23 08:59 0.25 mg BID KIKA Administration Spironolactone 50 mg 05/01/23 09:00 05/02/23 09:27 Spironolactone 25 Mg Tab PO 05/31/23 08:59 50 mg BID17 KIKA Administration Trolamine Salicylate 1 appln 05/01/23 16:51 05/02/23 11:10 Trolamine Salicylate 10% Crm 255 Appln/85 Gm Tube EXT 05/31/23 16:50 1 appln Q4H PRN Administration aching in left leg
[2023-05-02] MEDS ORDERED: fentaNYL citrate PF 100 MCG/2 ML VIAL ONE (12:28)
[2023-05-02] MEDS ORDERED: MIDAZOLAM HCL 1 MG/ML 2ML VIAL ONE (12:28)
[2023-05-02] MEDS ORDERED: NALOXONE HCL 0.4 MG/1 ML VIAL/CARP IV PRN (12:44)
[2023-05-02] MEDS ORDERED: FLUMAZENIL 0.1 MG/1 ML 10 ML VIAL IV PRN (12:44)
[2023-05-02] MEDS ORDERED: PROMETHAZINE HCL 12.5 MG in SODIUM CHLORIDE 0.9% 50 ML IV PRN (12:44)
[2023-05-02] MEDS ORDERED: ATROPINE SULFATE 0.1 MG/ML 10ML SYR IV PRN (12:44)
[2023-05-02] MEDS ORDERED: ONDANSETRON INJ 2 MG/ML 2 ML VIAL IV PRN (12:44)
[2023-05-02] MEDS ORDERED: ePHEDrine sulfate 50 MG/ML AMP IV PRN (12:44)
[2023-05-02] MEDS ORDERED: fentaNYL citrate PF 100 MCG/2 ML VIAL IV PRN (12:44)
[2023-05-02] MEDS ORDERED: HYDROmorphone INJ 1 MG/ML SYRINGE IV PRN (12:44)
--- NOTE | 2023-05-02 12:53 | History & Physical Bridge Note ---
Date of Service May 02, 2023 History & Physical Bridge Note I have examined the patient, reviewed the History & Physical and in the interval since the performance of the History & Physical I have noted the following changes of clinical significance: no changes noted
--- NOTE | 2023-05-02 13:33 | Post Operative Brief Note ---
Immediate Post Op Note v1 Date of Surgery May 02, 2023 Pre & Post Diagnosis Operation Date: 05/02/23 06:55 Pre-Op Diagnosis: Left fifth toe osteomyelitis Post-Op Diagnosis: Left fifth toe osteomyelitis I identified the patient and participated in the time-out.: Yes Procedure Operation Date: 05/02/23 06:55 Actual Procedures p Amputation Toe left fifth toe(Left) - Cody Palm DPM, MS Surgeon Cody Palm DPM, MS Silo Man none Estimated Blood Loss 5 Findings Consistent with Post-Op Diagnosis consistent with preoperative diagnosis
--- NOTE | 2023-05-02 13:57 | Anesthesiology Progress Note ---
Date of Service May 02, 2023 Anesthesia Post Procedure Vital Signs Vital Signs: Temp Pulse Pulse Resp BP Pulse Ox O2 Del Method 05/02/23 13:45 90 16 124/83 95 Oxymask 05/02/23 13:37 36.4 C L 90 12 116/90 95 Oxymask 05/02/23 07:22 Room Air 05/02/23 07:17 36.6 C 72 16 114/72 96 Room Air 05/01/23 20:47 36.5 C 77 18 135/79 97 Room Air 05/01/23 15:18 36.3 C L 78 16 136/84 99 Room Air O2 Flow Rate 05/02/23 13:45 3 05/02/23 13:37 6 05/02/23 07:22 05/02/23 07:17 05/01/23 20:47 05/01/23 15:18 Pain Intensity Back: Pain Intensity: 2 Left Foot: Pain Intensity: 3 Transfer of Care Handoff Completed per policy Notes Mental Status: alert / awake / arousable Patient Amnestic to Procedure: Yes Nausea / Vomiting: adequately controlled Pain: adequately controlled Airway Patency, RR, SpO2: stable & adequate BP & HR: stable & adequate Hydration State: stable & adequate Anesthetic Complications: no major complications apparent
[2023-05-02] MEDS: ACETAMINOPHEN 325 MG TAB PO PRN ×2 (14:20→23:58)
[2023-05-02] MEDS: estradioL 1 MG TAB PO SCH ×2 (14:42→21:34)
--- NOTE | 2023-05-02 16:08 | Operative Report ---
Post Operative Report Pre & Post Diagnosis Operation Date: 05/02/23 06:55 Pre-Op Diagnosis: Left fifth toe osteomyelitis Post-Op Diagnosis: Left fifth toe osteomyelitis I identified the patient and participated in the time-out.: Yes Procedure Operation Date: 05/02/23 06:55 Actual Procedures p Amputation Toe left fifth toe(Left) - Cody Palm DPM, MS Surgeon Cody Palm DPM, MS Coagulating Bath Mixer none Estimated Blood Loss 5 Findings Consistent with Post-Op Diagnosis Consistent with pre operative diagnose Specimens Left fifth toe - microbiology/pathology Description of Procedure History of present illness: Patient is a 27 year old male who is seen for treatment of necrotic left fifth toe. MRI shows positive osteomyelitis. Patient requests surgical amputation of left fifth toe. I discussed patient's history of toe amputation and reviewed hammertoe correction surgery. All questions answered. Discussed procedure in detail and postoperative recovery. All potential risks, benefits, complications, alternatives, rehab, potential for incomplete relief of symptoms, need for further surgery, DVT, PE, , persistent pain, swelling, scarring, weakness, neurovascular, wound complications and potential for amputations were discussed with patient. Unwanted outcomes such as, but not limited to were reviewed including under correction, overcorrection, return of deformity, infection. All questions were answered. Patient has decided to proceed with procedure as indicated. Preoperative diagnosis: Osteomyelitis left fifth toe Postoperative diagnosis: same Name of operation: Amputation left fifth toe Surgeon Dr. Palm Coagulating Bath Mixer: None Anesthesia: local with monitored anesthesia care Hemostasis: pneumatic ankle tourniquet Estimated blood loss: 5ml Procedure in detail: Under mild sedation the patient was brought in the operating room placed on the operating table in supine position. A pneumatic ankle tourniquet was then placed about the patient's left ankle. Following IV sedation local anesthesia was obtained about the left utilizing 15 cc of a one-to-one mixture of 1% lidocaine plain and 0.5% Marcaine plain. The foot was then prepped scrubbed and draped in usual aseptic manner. An Esmarch bandage was utilized to exsanguinate the patient's left foot and the pneumatic ankle tourniquet was then inflated. Attention was then directed to a nonhealing diabetic ulcer on the distal aspect of the left fifth toe. A fishmouth incision was created utilizing a sharp, sterile, #15 blade. The incision was deepened through subcutaneous tissue using sharp blunt dissection. Care was taken to identify and retract all vital neurovascular structures. All bleeders were ligated and cauterized necessary. At this time the left fifth toe was removed at the metatarsal phalangeal joint and placed on the back table. The left fifth toe was then sent to microbiology and pathology Copious amounts of sterile normal saline were utilized to flush the incision site. The skin was then primarily closed utilizing 4-0 nylon in horizontal suture mattress techniques as well as simple suture closure. Upon completion of the procedure the incision was dressed with Betadine soaked Adaptic followed by sterile compressive dressing consisting of 4 x 4's Dalila Kerlix ABD the pneumatic ankle tourniquet was inflated and a prompt hyperemic response was noted to all digits of the left foot. An Ricky wrap and postoperative shoe were then applied. The Patient tolerated the procedure and anesthesia well. Patient was transferred to recovery room vital signs stable and vascular status intact all toes of the left foot following. Patient will be re-admitted to the floor resuming all pre-operative orders. I attest to the content of the Intraoperative Record and any orders documented therein. Any exceptions are noted below.
[2023-05-02] MEDS ORDERED: HYDROmorphone INJ 0.5 MG/0.5 ML SYR IV STA (18:27)
[2023-05-02] MEDS: oxyCODONE HCL IR 5 MG TAB (IMMEDIATE RELEASE) PO PRN (21:31)
[2023-05-02] MEDS: lamoTRIgine 100 MG TAB PO SCH (21:34)
[2023-05-02] MEDS: hydrOXYzine HCl 25 MG TAB PO PRN (22:19)
[2023-05-03] MEDS: HYDROmorphone INJ 0.5 MG/0.5 ML SYR IV PRN ×4 (00:47→21:33)
[2023-05-03] MEDS: PIPERACILLIN/TAZOBACTAM 4.5 GM in DEXTROSE 5% MINI-B 100 ML IV SCH ×2 (01:55→09:06)
[2023-05-03] MEDS: oxyCODONE HCL IR 5 MG TAB (IMMEDIATE RELEASE) PO PRN (05:29)
[2023-05-03 06:32] LABS: Hematocrit (blood only) 34.4 % (42.0-52.0); Hemoglobin 10.9 g/dl (14.0-18.0); Mean Corpuscular Hemoglobin 26.5 pg (25.0-34.0); Mean Corpuscular Hgb Conc 31.7 g/dL (32.0-36.0); Mean Corpuscular Volume 83.5 fL (80.0-100.0); Platelet Count 294 K/uL (130-400); RDW Coefficient of Variation 19.1 % (11.5-14.5); Red Blood Count 4.12 M/uL (4.70-6.10); White Blood Count 8.33 K/ul (4.8-10.8)
[2023-05-03] MEDS: GABAPENTIN 400 MG CAP PO SCH ×2 (08:09→20:06)
[2023-05-03] MEDS: estradioL 1 MG TAB PO SCH ×2 (08:09→20:04)
[2023-05-03] MEDS: ADVANCED PROBIOTIC 1250 MG CAPSULE PO SCH (08:10)
[2023-05-03] MEDS: SPIRONOLACTONE 25 MG TAB PO SCH ×2 (08:10→17:16)
[2023-05-03] MEDS: FINASTERIDE 5 MG TAB PO SCH (08:10)
[2023-05-03] MEDS: PANTOprazole 40 MG TAB PO SCH (08:10)
[2023-05-03] MEDS: risperiDONE 0.5 MG TABLET PO SCH ×2 (08:10→20:05)
[2023-05-03] MEDS ORDERED: traMADol HCL 50 MG TABLET PO SCH (09:00)
[2023-05-03] MEDS ORDERED: TAMSULOSIN HCL 0.4 MG CAP PO ONE (13:41)
--- NOTE | 2023-05-03 14:14 | Infectious Disease Consult ---
Date of Service May 03, 2023 Telehealth Information I performed this visit using a real-time telehealth connection between my location and the patients location ([facility]). After connecting through interactive tele-video, patient was identified by name and date of and/or wristband check.Patient (or authorized healthcare call center representative) was informed that this was a telemedicine visit and it was being conducted confidentially over secure lines. My office door was closed and no one else was present in the room with me.Patient (or authorized healthcare call center representative) provided consent to proceed with the visit, expressed an understanding of privacy and security of the telemedicine visit, and gave permission to have a hospital call center representative in the room in order to assist with the visit and to conduct portions of the visit, as needed. I informed the patient (or authorized healthcare call center representative) that I reviewed their record and presented the opportunity for them to ask any questions regarding the visit today. The patient agreed to participate. Assessment & Plan (1) Osteomyelitis: Plan: De-escalate to Unasun monotherapy. Since the operative report mentions that the infection was distal and the left fifth toe was removed at the metatarsal phalangeal joint, I am going to operate under the assumption that the infection has been surgically cured. Therefore, I will recommend Unasyn/PO Augmentin for 3-5 days post operativey. If this is NOT the case (and you feel that the patient has residual OM which needs prolonged ABX, please reach out). ID is signing off. Contact us for any new issues. If any workup finalizes after ID signs off, forward the results (this is very important since ID is not automatically notified). History of Present Illness History of Present Illness The patient was admitted for necrosis of the toe . Workup revealed OM. The patient was seen by Orthopedics and they took the patient for amputation. OR cultures grew MSSA and some other skin alysa. The patient currently reports improved pain. Allergies Allergy/AdvReac Type Severity Reaction Status Date / Time azithromycin [From Zithromax] Allergy Intermediate Rash Verified 04/30/23 22:18 Home Medications Medication Instructions Recorded Confirmed Type estradiol 2 mg tablet 2 mg PO BID 04/30/23 04/30/23 History finasteride 5 mg tablet 5 mg PO DAILY 04/30/23 04/30/23 History gabapentin 100 mg capsule 400 mg PO BID 04/30/23 04/30/23 History hydroxyzine HCl 25 mg tablet 25 mg PO Q4 PRN Anxiety 04/30/23 04/30/23 History hydroxyzine HCl 25 mg tablet 50 mg PO HS PRN Insomnia 04/30/23 04/30/23 History lamotrigine 25 mg tablet 100 mg PO QPM 04/30/23 04/30/23 History omeprazole 40 mg capsule,delayed 40 mg PO QAM 04/30/23 04/30/23 History release risperidone 0.5 mg tablet 0.25 mg PO BID 04/30/23 04/30/23 History spironolactone 50 mg tablet 50 mg PO BID 04/30/23 04/30/23 History Patient History Medical History Sore throat Schizoaffective disorder, bipolar type Encounter for pre-operative examination Vermiculation Suicidal ideations Rheumatoid arthritis seronegative Surgical History No significant past surgical history Family History Other Back pain Social History Smoking Status: Never smoker Second Hand Exposure: No; Do You Dip or Chew Tobacco: No; Hx Alcohol Use: Yes Alcohol type: wine Hx Substance Use: No Preferred Language: Bolivian Communication Ability: Effective Communication Ability Comment: unable to assess currently intubated First Assistant Manager Required: No Beliefs That Will Affect Care: None marital status: Single Current Living Situation: Alone and Other Current Living Situation Comment: student current occupational status: student Feels Safe at Home: Yes Safety Concerns: Feels Safe At This Time Gender Identity: Transgender Female Assistive Devices: Cane, Glasses and Special Shoe Assistive Devices Comment: cast shoe on left foot Review of Systems As reviewed in HPI; a complete ROS was otherwise negative Physical Exam Vitals: see EMR Exam limited due to constraints of telemedicine Gen/Constitutional: appears at stated age, NAD, nontoxic, sitting up in bed Head: AT, NC, no supplemental oxygen in place Eyes: pupils equal, sclera anicteric, EOMI, no conjunctival injection ENT: MMM, trachea midline, hearing grossly normal Card: appears to be well-perfused Resp: not tachypneic, nml effort, symmetric chest rise, no accessory muscle use Derm: no visible diaphoresis, no visible rash, no visible jaundiceNeuro: AAO, speaking in full sentences, speech intelligible Results & Data Vital Signs (Past 12 Hours) Vital Signs Temp Pulse Resp BP Pulse Ox O2 Del Method 05/03/23 11:04 36.4 C L 75 16 116/73 96 Room Air 05/03/23 08:00 Room Air 05/03/23 07:14 36.4 C L 70 17 120/82 97 Room Air Laboratory Results Reviewed; see EMR Diagnostic Findings Reviewed; see EMR (1) Osteomyelitis Laterality: left Osteomyelitis location: foot Osteomyelitis type: unspecified type Qualified Code(s): M86.9 - Osteomyelitis, unspecified
--- NOTE | 2023-05-03 14:34 | Hospitalist Progress Note ---
Date of Service May 03, 2023 Assessment & Plan (1) Infection of left foot: Plan: Ms. Mckoen is a 27-year-old transgender male who identifies as female and prefers the name Ethel with past medical history significant for GERD, obstructive apnea CPAP intolerance, seronegative rheumatoid arthritis, schizoaffective disorder, anxiety/mood disorder, ADHD, and anosmia, secondary to congenital nasal septal deviation s/p surgery who recently had prolonged adm ission for suicidal attempt resulting in acute respiratory failure requiring mechanical ventilation. During that time, a small hemorrhagic like blister formed on the left fifth digit. Podiatry evaluated toe with strong suspicion of bullous hemorrhagic dermatosis suspected. Patient follow up routinely in wound care clinic with concerns of progression on 04/28. Patient presented due to continued worsening and redness at base of lesion. Patient now POD 1 from fifth digit amputation. #Chronic normocytic anemia -anemia labs in am #Acute urinary retention -straight cath with 1.4L return -will repeat bladder scan in 6 hours, if retaining >[address] [place] -Start tamsulosin now to aid in flow #Necrotic left fifth digit, c/f osteomyelitis -MRI +OM, infectious work up MSSA -Consult Ortho, planning for amputation -Consult ID for duration of abx treatment -Recommended 3-5 days po augmentin post-operatively -PT/OT when able -Pain management :schedule tylenol, ibuprofen moderate, oxy/Dilaudid severe (patient opting for IV 2/2 acuity) #History of schizoaffective disorder, bipolar type Continues home medications of Lamictal, gabapentin, and risperidone #Transgender who identifies as female On estradiol, finasteride, and spironolactone #Rheumatoid arthritis Seems to be on Humira Follows with hematology #Obesity Discussed with patient and encouraged activity DVT prophylaxis SCDs for now Disposition medical floor Full code Admission and Anticipated Discharge Date Admission Date: April 30, 2023 Subjective Reports throbbing pain in foot and not eager to participate yet with PT/OT Denies NV or other issues, just post-opertiave discomfort. Physical Exam Constitutional: WD/WN, vitals as above Respiratory: normal respiratory effort, lungs clear to auscultation Cardiovascular: RRR, no murmur, no edema Musculoskeletal: left foot in sudhir wrap, no strike through of banadages Results & Data Results & Data Vital Signs (Past 12 Hours) Vital Signs Temp Pulse Resp BP Pulse Ox O2 Del Method 05/03/23 11:04 36.4 C L 75 16 116/73 96 Room Air 05/03/23 08:00 Room Air 05/03/23 07:14 36.4 C L 70 17 120/82 97 Room Air Laboratory Results Short CBC 05/03/23 Range/Units 05:52 WBC 8.33 (4.8-10.8) K/ul Hgb 10.9 L (14.0-18.0) g/dl Hct 34.4 L (42.0-52.0) % Plt Count 294 (130-400) K/uL Medications Administered Home Medications Medication Instructions Recorded Confirmed Last Taken estradiol 2 mg tablet 2 mg PO BID 04/30/23 04/30/23 Unknown finasteride 5 mg tablet 5 mg PO DAILY 04/30/23 04/30/23 Unknown gabapentin 100 mg capsule 400 mg PO BID 04/30/23 04/30/23 Unknown hydroxyzine HCl 25 mg tablet 25 mg PO Q4 PRN Anxiety 04/30/23 04/30/23 Unknown hydroxyzine HCl 25 mg tablet 50 mg PO HS PRN Insomnia 04/30/23 04/30/23 Unknown lamotrigine 25 mg tablet 100 mg PO QPM 04/30/23 04/30/23 Unknown omeprazole 40 mg capsule,delayed 40 mg PO QAM 04/30/23 04/30/23 Unknown release risperidone 0.5 mg tablet 0.25 mg PO BID 04/30/23 04/30/23 Unknown spironolactone 50 mg tablet 50 mg PO BID 04/30/23 04/30/23 Unknown Active Medications Generic Name Dose Route Start Last Admin Trade Name Kelvin PRN Reason Stop Dose Admin Estradiol 2 mg 05/01/23 09:00 05/03/23 08:09 Estradiol 1 Mg Tab PO 05/31/23 08:59 2 mg BID KIKA Administration Finasteride 5 mg 05/01/23 09:00 05/03/23 08:10 Finasteride 5 Mg Tab PO 05/31/23 08:59 5 mg DAILY KIKA Administration Gabapentin 400 mg 05/01/23 09:00 05/03/23 08:09 Gabapentin 400 Mg Cap PO 05/31/23 08:59 400 mg BID KIKA Administration Hydromorphone HCl 0.5 mg 05/01/23 01:18 05/03/23 09:29 Hydromorphone Inj 0.5 Mg/0.5 Ml Syr IV 05/15/23 01:17 0.5 mg Q6H PRN Administration Mod-Sev Pain (Scale 4-10) Hydroxyzine HCl 50 mg 05/01/23 01:18 05/02/23 22:19 Hydroxyzine Hcl 25 Mg Tab PO 05/31/23 01:17 50 mg HS PRN Administration Insomnia Lactobacillus Acidophilus 2 cap 05/01/23 09:00 05/03/23 08:10 Advanced Probiotic 1250 Mg Capsule PO 05/31/23 08:59 2 cap DAILY KIKA Administration Lamotrigine 100 mg 05/01/23 21:00 05/02/23 21:34 Lamotrigine 100 Mg Tab PO 05/31/23 20:59 100 mg QPM KIKA Administration Methocarbamol 500 mg 05/01/23 16:50 05/02/23 11:05 Methocarbamol 500 Mg Tablet PO 05/31/23 16:49 500 mg TID PRN Administration spasm/aching Oxycodone HCl 5 mg 05/02/23 18:27 05/03/23 05:29 Oxycodone Hcl Ir 5 Mg Tab (Immediate Release) PO 05/16/23 18:26 5 mg Q6H PRN Administration Pain Pantoprazole Sodium 40 mg 05/01/23 09:00 05/03/23 08:10 Pantoprazole 40 Mg Tab PO 05/31/23 08:59 40 mg QAM KIKA Administration Risperidone 0.25 mg 05/01/23 09:00 05/03/23 08:10 Risperidone 0.5 Mg Tablet PO 05/31/23 08:59 0.25 mg BID KIKA Administration Spironolactone 50 mg 05/01/23 09:00 05/03/23 08:10 Spironolactone 25 Mg Tab PO 05/31/23 08:59 50 mg BID17 KIKA Administration Trolamine Salicylate 1 appln 05/01/23 16:51 05/02/23 11:10 Trolamine Salicylate 10% Crm 255 Appln/85 Gm Tube EXT 05/31/23 16:50 1 appln Q4H PRN Administration aching in left leg
[2023-05-03] MEDS ORDERED: IBUPROFEN 600 MG TAB PO PRN (14:41)
[2023-05-03] MEDS ORDERED: ceFAZolin 500 MG in SYRINGE 0 ML IV SCH (14:45)
[2023-05-03] MEDS ORDERED: ceFAZolin 2000MG 2,000 MG/15 ML SYR IV SCH (15:00)
[2023-05-03] MEDS: ACETAMINOPHEN 325 MG TAB PO SCH ×3 (15:36→23:27)
[2023-05-03] MEDS: AMOXICILLIN/CLAVULANATE 875 MG TAB PO SCH (17:16)
[2023-05-03] MEDS: TAMSULOSIN HCL 0.4 MG CAP PO SCH (20:03)
[2023-05-03] MEDS: lamoTRIgine 100 MG TAB PO SCH (20:04)
--- NOTE | 2023-05-03 22:24 | Orthopedic Progress Note ---
Date of Service May 03, 2023 Assessment & Plan (1) Osteomyelitis: Plan: Patient seen and evaluated in room 318-1. Patient status post day #1 left fifth toe amputation (DOS: 05/02/23) Patient does complain of left fifth sharp shooting pain at amputation site. Will continue to follow while patient remains in house. Thank you for allowing me to participate in the care of this Patient. (2) Infection of left foot: Admission and Anticipated Discharge Date Admission Date: April 30, 2023 Subjective Patient seen at bedside rest comfortably in room 318-1. Patient is status post day #2 left fifth toe amputation. Patient does complain of sharp shooting pains at fifth toe amputation site. Physical Exam Constitutional: well developed, well nourished, cooperative and comfortable Cardiovascular: Rate/Rhythm: regular rate and regular rhythm Vessels: posterior tibial pulses present and dorsalis pedis pulses present Musculoskeletal: Extremities: extremities normal to inspection Skin: + wound (Left toe amputation site well c oapted. Sutures intact.) Neurologic: moves all extremities Psychiatric: Orientation: alert and oriented x 3 Results & Data Vital Signs (Past 12 Hours) Vital Signs Temp Pulse Resp BP Pulse Ox O2 Del Method 05/03/23 20:49 36.6 C 05/03/23 15:27 36.6 C 72 16 121/85 97 Room Air 05/03/23 11:04 36.4 C L 75 16 116/73 96 Room Air (1) Osteomyelitis Laterality: left Osteomyelitis location: foot Osteomyelitis type: unspecified type Qualified Code(s): M86.9 - Osteomyelitis, unspecified
[2023-05-03] MEDS: hydrOXYzine HCl 25 MG TAB PO PRN (23:27)
--- NOTE | 2023-05-03 23:43 | Ultrasound Report ---
Exam(s): US RENAL EXAM: US Retroperitoneal Limited, Renal CLINICAL HISTORY: Reason for exam: rentention obstruction. TECHNIQUE: Real-time limited ultrasound of the retroperitoneum with image documentation. COMPARISON: None. FINDINGS: Right kidney: Right kidney measures 11.1 cm in long axis. No stones. No hydronephrosis. Left kidney: Left kidney measures 9.6 cm in long axis. No stones. No hydronephrosis. Bladder: Urinary bladder is distended with approximately volume 1253 mL. Other findings: Hepatic steatosis. IMPRESSION: 1. Urinary bladder is distended with approximately volume 1253 mL. This is compatible with reported history of urinary retention. No hydronephrosis. Recommend clinical correlation. 2. Hepatic steatosis. Electronically signed by: Amor Quinn MD 05/03/23 23:43 PM
[2023-05-04] MEDS: METHOCARBAMOL 500 MG TABLET PO PRN ×2 (01:27→12:17)
[2023-05-04] MEDS: ACETAMINOPHEN 325 MG TAB PO SCH ×2 (04:04→06:27)
[2023-05-04 06:34] LABS: Hematocrit (blood only) 34.9 % (42.0-52.0); Hemoglobin 11.5 g/dl (14.0-18.0); Mean Corpuscular Hemoglobin 27.3 pg (25.0-34.0); Mean Corpuscular Volume 82.7 fL (80.0-100.0); Mean Platelet Volume 9.7 fL (9.4-12.4); Platelet Count 295 K/uL (130-400); RDW Coefficient of Variation 18.6 % (11.5-14.5); RDW Standard Deviation 55.4 fL (36.4-46.3); Red Blood Count 4.22 M/uL (4.70-6.10); White Blood Count 6.86 K/ul (4.8-10.8)
[2023-05-04 06:59] LABS: BUN Creatinine Ratio 10.4 (10-20); Calcium 9.1 mg/dl (8.6-10.3); Creatinine Clr Calc Pharmacy 173.7 ml/min; Est GFR (African American) 126.8 ml/min; Est GFR (Non-African American) 109.4 ml/min; Magnesium 1.8 mg/dl (1.7-2.4); Phosphorus 4.5 mg/dl (2.5-4.9); Potassium 3.7 mmol/L (3.5-5.1)
[2023-05-04 07:01] LABS: Folate (Folic Acid),Ser orPlas 9.88 ng/ml (>5.38)
[2023-05-04 07:18] LABS: Ferritin 22.9 ng/ml (8-388)
--- NOTE | 2023-05-04 08:04 | Urology Consultation ---
Date of Consultation May 04, 2023 Assessment & Plan (1) Urinary retention: Plan - Urology consulted for acute urinary retention. - Afebrile and hemodynamically stable. - Labs show no leukocytosis and normal renal function. - Urinalysis today without signs of infection or blood. - Patient with urinary retention requiring straight catheterization x 2 with >1L of urine drained. - Urinary retention likely multifactorial including recent surgery/anesthesia. - We discussed urinary retention and options for management including intermittent straight catheterization or indwelling Linares catheter. Risks/benefits discussed. - Patient would prefer to attempt voiding spontaneously again this morning. - Recommend monitoring PVR and if >400ml our recommendation would be for Linares catheter placement. - If patient does require Linares catheter placement, would recommend maintaining for approximately 1 week to allow for bladder rest. - Continue Flomax. - Will arrange outpatient follow-up with our service for continued care and voiding trial if needed. - Patient agreeable to plan, all questions were answered. - Urology will sign-off. Please contact us any further questions or concerns. History of Present Illness Attending Physician: kSylar Hung MD History of Present Illness 27-year-old transgender male who identifies as female and prefers the name Ethel with past medical history significant for GERD, obstructive apnea CPAP intolerance, seronegative rheumatoid arthritis, schizoaffective disorder, anxiety/mood disorder, ADHD, and anosmia secondary to congenital nasal septal deviation s/p surgery who recently had prolonged admission for suicidal attempt resulting in acute respiratory failure requiring mechanical ventilation cur rently admitted with an infection of the left foot. Patient underwent left fifth toe amputation on 05/02/23. Patient noted to have difficulty with voiding 05/03/23 requiring straight catheterization. Urology has been asked to evaluate patient due to urinary retention. Patient was unable to void on 05/03/2023. Bladder scanned for 1,169. Straight cathed for 1,400ml. Flomax started. Nursing staff attempted catheter placement with a 16Fr Linares but were unable to place catheter as patient was unable to tolerate discomfort. Patient was straight cathed a second time last night 05/03/23 for 1690ml. Patient examined at bedside this AM. Awake, resting in bed on arrival. No acute distress. Has not voided yet this morning. Denies suprapubic pain or discomfort at present. Denies hematuria or dysuria. Denies prior issues with urinary retention. Denies baseline urinary issues or symptoms. Denies prior urological history. Allergies Allergy/AdvReac Type Severity Reaction Status Date / Time azithromycin [From Zithromax] Allergy Intermediate Rash Verified 04/30/23 22:18 Home Medications Medication Instructions Recorded Confirmed Type estradiol 2 mg tablet 2 mg PO BID 04/30/23 04/30/23 History finasteride 5 mg tablet 5 mg PO DAILY 04/30/23 04/30/23 History gabapentin 100 mg capsule 400 mg PO BID 04/30/23 04/30/23 History hydroxyzine HCl 25 mg tablet 25 mg PO Q4 PRN Anxiety 04/30/23 04/30/23 History hydroxyzine HCl 25 mg tablet 50 mg PO HS PRN Insomnia 04/30/23 04/30/23 History lamotrigine 25 mg tablet 100 mg PO QPM 04/30/23 04/30/23 History omeprazole 40 mg capsule,delayed 40 mg PO QAM 04/30/23 04/30/23 History release risperidone 0.5 mg tablet 0.25 mg PO BID 04/30/23 04/30/23 History spironolactone 50 mg tablet 50 mg PO BID 04/30/23 04/30/23 History Patient History Medical History Sore throat Schizoaffective disorder, bipolar type Encounter for pre-operative examination Vermiculation Suicidal ideations Rheumatoid arthritis seronegative Surgical History No significant past surgical history Family History Other Back pain Social History Smoking Status: Never smoker Second Hand Exposure: No; Do You Dip or Chew Tobacco: No; Hx Alcohol Use: Yes Alcohol type: wine Hx Substance Use: No Preferred Language: Barbadian Communication Ability: Effective Communication Ability Comment: unable to assess currently intubated Diabetologist Required: No Beliefs That Will Affect Care: None marital status: Single Current Living Situation: Alone and Other Current Living Situation Comment: student current occupational status: student Feels Safe at Home: Yes Safety Concerns: Feels Safe At This Time Gender Identity: Transgender Female Assistive Devices: Cane and Special Shoe Assistive Devices Comment: cast shoe on left foot Review of Systems Review of Systems: All systems reviewed & are unremarkable except as noted in HPI & below Physical Exam Constitutional: no acute distress Respiratory: no respiratory distress and no labored breathing Musculoskeletal: Head/Neck/Chest: normocephalic Skin: No visible rashes or lesions to exposed skin areas Neurologic: moves all extremities and awake Psychiatric: A+Ox3, euthymic affect Results & Data Vital Signs (Past 12 Hours) Vital Signs Temp Pulse Resp BP Pulse Ox O2 Del Method 05/03/23 23:00 36.7 C 96 H 18 126/75 97 Room Air 05/03/23 20:49 36.6 C PG Care Time/CCT Total # of Minutes Spent Total Time Spent with Patient: Total time spent is greater than 50% in coordination of care (as documented) at patient's floor/unit and/or counseling patient: Coding Level of Care Code 12795 IN/OBS CONSULT LVL 3,45M Diagnoses Urinary retention R33.9
[2023-05-04] MEDS ORDERED: oxyCODONE HCL IR 5 MG TAB (IMMEDIATE RELEASE) PO PRN (08:54)
[2023-05-04] MEDS: POLYETHYLENE (MIRALAX) 17 GM PACK PO PRN (09:10)
[2023-05-04] MEDS: ADVANCED PROBIOTIC 1250 MG CAPSULE PO SCH (09:10)
[2023-05-04] MEDS: FINASTERIDE 5 MG TAB PO SCH (09:10)
[2023-05-04] MEDS: estradioL 1 MG TAB PO SCH ×2 (09:10→19:44)
[2023-05-04] MEDS: HYDROmorphone INJ 0.5 MG/0.5 ML SYR IV PRN ×2 (09:10→15:58)
[2023-05-04] MEDS: PANTOprazole 40 MG TAB PO SCH (09:11)
[2023-05-04] MEDS: GABAPENTIN 400 MG CAP PO SCH ×2 (09:11→19:44)
[2023-05-04] MEDS: AMOXICILLIN/CLAVULANATE 875 MG TAB PO SCH ×2 (09:11→18:22)
[2023-05-04] MEDS: risperiDONE 0.5 MG TABLET PO SCH ×2 (09:11→19:43)
[2023-05-04] MEDS: SPIRONOLACTONE 25 MG TAB PO SCH ×2 (09:11→18:22)
[2023-05-04 10:26] LABS: Appearance Urine Clear (Clear); Bilirubin Urine Negative (Negative); Blood Urine Negative (Negative); Color Urine Yellow; Glucose Urine UA Negative (Negative); Ketones Urine 1+ (Negative); Leukocyte Esterase Urine Negative (Negative); Nitrite Urine Negative (Negative); Protein Urine Negative (Negative); Specific Gravity Urine 1.021 (1.000-1.030); Urobilinogen Urine Negative (Negative); pH Urine 5.5 (4.5-7.5)
[2023-05-04] MEDS: HYDROcodone/ACETAMINOPHEN 10/325 TAB PO SCH ×3 (10:42→21:10)
--- NOTE | 2023-05-04 15:07 | Hospitalist Progress Note ---
Date of Service May 04, 2023 Assessment & Plan (1) Infection of left foot: Plan: Ms. Mckeon is a 27-year-old transgender male who identifies as female and prefers the name Ethel with past medical history significant for GERD, obstructive apnea CPAP intolerance, seronegative rheumatoid arthritis, schizoaffective disorder, anxiety/mood disorder, ADHD, and anosmia, secondary to congenital nasal septal deviation s/p surgery who recently had prolonged adm ission for suicidal attempt resulting in acute respiratory failure requiring mechanical ventilation. During that time, a small hemorrhagic like blister formed on the left fifth digit. Podiatry evaluated toe with strong suspicion of bullous hemorrhagic dermatosis suspected. Patient follow up routinely in wound care clinic with concerns of progression on 04/28. Patient presented due to continued worsening and redness at base of lesion. Patient now POD 3 from fifth digit amputation. #Chronic normocytic anemia -stable post-operatively, ctm #Acute urinary retention -straight cath with 1.4L return -will repeat bladder scan in 6 hours, if retaining >[address] [place] -Continue tamsulosin -Urology following: suspect multifactorial, UA without infection or blood #Necrotic left fifth digit, c/f osteomyelitis s/p amputation 05/02 -MRI +OM, infectious work up MSSA -Consult Ortho, planning for amputation -Consult ID for duration of abx treatment -Recommended 3-5 days po augmentin post-operatively (EOT 05/07) -PT/OT when able -Pain management :history of GIB, no ibuprogen; scheduled NORCO given increased pain, IV dilaudid in between for break through; plan to wean as able, aggressive regimen to encourage PT participation for dispo planning #History of schizoaffective disorder, bipolar type Continues home medications of Lamictal, gabapentin, and risperidone #Transgender who identifies as female On estradiol, finasteride, and spironolactone #Rheumatoid arthritis Seems to be on Humira Follows with rheumatology #Obesity Discussed with patient and encouraged activity DVT prophylaxis SCDs for now, encourage ambulation Disposition medical floor Full code Admission and Anticipated Discharge Date Admission Date: April 30, 2023 Subjective 24 hours: Staight cath'd twice due to retention, able to void finally with sitting on bedside commode Reports pain still severe with attempting to ambulate Denies any other concerns outside of continued weakness Physical Exam Constitutional: WD/WN, vitals as above Respiratory: normal respiratory effort, lungs clear to auscultation Cardiovascular: RRR, no murmur, no edema Skin: left foot in sudhir wrap with bandage in tact, surgical boot on Results & Data Results & Data Vital Signs (Past 12 Hours) Vital Signs Temp Pulse Resp BP Pulse Ox O2 Del Method 05/04/23 14:52 36.3 C L 76 14 112/77 98 Room Air 05/04/23 08:04 36.6 C 72 18 137/79 97 Room Air 05/04/23 07:30 Room Air Laboratory Results Short CBC 05/04/23 Range/Units 06:00 WBC 6.86 (4.8-10.8) K/ul Hgb 11.5 L (14.0-18.0) g/dl Hct 34.9 L (42.0-52.0) % Plt Count 295 (130-400) K/uL BMP 05/04/23 06:00 Sodium 137 Potassium 3.7 Chloride 105 Carbon Dioxide 24 BUN 10 Creatinine 0.96 Glucose 87 Calcium 9.1 Urine 05/04/23 Range/Units 10:05 Urine Color Yellow Urine Appearance Clear (Clear) Urine pH 5.5 (4.5-7.5) Ur Specific [place] 1.021 (1.000-1.030) Urine Protein Negative (Negative) Urine Glucose (UA) Negative (Negative) Medications Administered Home Medications Medication Instructions Recorded Confirmed Last Taken estradiol 2 mg tablet 2 mg PO BID 04/30/23 04/30/23 Unknown finasteride 5 mg tablet 5 mg PO DAILY 04/30/23 04/30/23 Unknown gabapentin 100 mg capsule 400 mg PO BID 04/30/23 04/30/23 Unknown hydroxyzine HCl 25 mg tablet 25 mg PO Q4 PRN Anxiety 04/30/23 04/30/23 Unknown hydroxyzine HCl 25 mg tablet 50 mg PO HS PRN Insomnia 04/30/23 04/30/23 Unknown lamotrigine 25 mg tablet 100 mg PO QPM 04/30/23 04/30/23 Unknown omeprazole 40 mg capsule,delayed 40 mg PO QAM 04/30/23 04/30/23 Unknown release risperidone 0.5 mg tablet 0.25 mg PO BID 04/30/23 04/30/23 Unknown spironolactone 50 mg tablet 50 mg PO BID 04/30/23 04/30/23 Unknown Active Medications Generic Name Dose Route Start Last Admin Trade Name Freq PRN Reason Stop Dose Admin Hydrocodone Bitart/Acetaminophen 1 tab 05/04/23 09:00 05/04/23 14:42 Hydrocodone/Acetaminophen 10/325 Tab PO 05/18/23 08:59 1 tab Q6H KIKA Administration Amoxicillin/Clavulanate Potassium 1 tab 05/03/23 17:00 05/04/23 09:11 Amoxicillin/Clavulanate 875 Mg Tab PO 05/06/23 16:59 1 tab BIDM KIKA Administration Protocol Estradiol 2 mg 05/01/23 09:00 05/04/23 09:10 Estradiol 1 Mg Tab PO 05/31/23 08:59 2 mg BID KIKA Administration Finasteride 5 mg 05/01/23 09:00 05/04/23 09:10 Finasteride 5 Mg Tab PO 05/31/23 08:59 5 mg DAILY KIKA Administration Gabapentin 400 mg 05/01/23 09:00 05/04/23 09:11 Gabapentin 400 Mg Cap PO 05/31/23 08:59 400 mg BID KIKA Administration Hydromorphone HCl 0.5 mg 05/01/23 01:18 05/04/23 09:10 Hydromorphone Inj 0.5 Mg/0.5 Ml Syr IV 05/15/23 01:17 0.5 mg Q6H PRN Administration Mod-Sev Pain (Scale 4-10) Hydroxyzine HCl 50 mg 05/01/23 01:18 05/03/23 23:27 Hydroxyzine Hcl 25 Mg Tab PO 05/31/23 01:17 50 mg HS PRN Administration Insomnia Lactobacillus Acidophilus 2 cap 05/01/23 09:00 05/04/23 09:10 Advanced Probiotic 1250 Mg Capsule PO 05/31/23 08:59 2 cap DAILY KIKA Administration Lamotrigine 100 mg 05/01/23 21:00 05/03/23 20:04 Lamotrigine 100 Mg Tab PO 05/31/23 20:59 100 mg QPM KIKA Administration Methocarbamol 500 mg 05/01/23 16:50 05/04/23 12:17 Methocarbamol 500 Mg Tablet PO 05/31/23 16:49 500 mg TID PRN Administration spasm/aching Pantoprazole Sodium 40 mg 05/01/23 09:00 05/04/23 09:11 Pantoprazole 40 Mg Tab PO 05/31/23 08:59 40 mg QAM KIKA Administration Polyethylene Glycol 17 gm 05/01/23 01:18 05/04/23 09:10 Polyethylene (Miralax) 17 Gm Pack PO 05/31/23 01:17 17 gm DAILY PRN Administration Constipation Risperidone 0.25 mg 05/01/23 09:00 05/04/23 09:11 Risperidone 0.5 Mg Tablet PO 05/31/23 08:59 0.25 mg BID KIKA Administration Spironolactone 50 mg 05/01/23 09:00 05/04/23 09:11 Spironolactone 25 Mg Tab PO 05/31/23 08:59 50 mg BID17 KIKA Administration Tamsulosin HCl 0.4 mg 05/03/23 21:00 05/03/23 20:03 Tamsulosin Hcl 0.4 Mg Cap PO 06/02/23 20:59 0.4 mg HS KIKA Administration Trolamine Salicylate 1 appln 05/01/23 16:51 05/02/23 11:10 Trolamine Salicylate 10% Crm 255 Appln/85 Gm Tube EXT 05/31/23 16:50 1 appln Q4H PRN Administration aching in left leg
[2023-05-04] MEDS: lamoTRIgine 100 MG TAB PO SCH (19:43)
[2023-05-04] MEDS: TAMSULOSIN HCL 0.4 MG CAP PO SCH (19:45)
[2023-05-04] MEDS: hydrOXYzine HCl 25 MG TAB PO PRN (21:51)
[2023-05-05] MEDS: HYDROcodone/ACETAMINOPHEN 10/325 TAB PO SCH ×4 (03:16→21:08)
[2023-05-05 06:34] LABS: Hemoglobin 12.1 g/dl (14.0-18.0)
[2023-05-05] MEDS: estradioL 1 MG TAB PO SCH ×2 (08:15→21:08)
[2023-05-05] MEDS: AMOXICILLIN/CLAVULANATE 875 MG TAB PO SCH ×2 (08:15→17:00)
[2023-05-05] MEDS: FINASTERIDE 5 MG TAB PO SCH (08:15)
[2023-05-05] MEDS: ADVANCED PROBIOTIC 1250 MG CAPSULE PO SCH (08:16)
[2023-05-05] MEDS: GABAPENTIN 400 MG CAP PO SCH ×2 (08:16→21:08)
[2023-05-05] MEDS: PANTOprazole 40 MG TAB PO SCH (08:16)
[2023-05-05] MEDS: risperiDONE 0.5 MG TABLET PO SCH ×2 (08:16→21:07)
[2023-05-05] MEDS: SPIRONOLACTONE 25 MG TAB PO SCH ×2 (08:17→17:00)
[2023-05-05] MEDS: POLYETHYLENE (MIRALAX) 17 GM PACK PO PRN (13:24)
--- NOTE | 2023-05-05 16:03 | Hospitalist Progress Note ---
Date of Service May 05, 2023 Assessment & Plan (1) Osteomyelitis: (2) Infection of left foot: Plan: Per Dr. Hung notes with addendum: Ms. Mckeon is a 27-year-old transgender male who identifies as female and prefers the name Ethel with past medical history significant for GERD, obstructive apnea CPAP intolerance, seronegative rheumatoid arthritis, schizoaffective disorder, anxiety/mood disorder, ADHD, and anosmia, secondary to congenital nasal septal deviation s/p surgery who recently had prolonged admission for suicidal attempt resulting in acute respiratory failure requiring mechanical ventilation. During that time, a small hemorrhagic like blister formed on the left fifth digit. Podiatry evaluated toe with strong suspicion of bullous hemorrhagic dermatosis suspected. Patient follow up routinely in wound care clinic with concerns of progression on 04/28. Patient presented due to continued worsening and redness at base of lesion. Patient now POD 3 from fifth digit amputation. #Chronic normocytic anemia -stable post-operatively, ctm 05/05 Hemoglobin stable at 12.1 #Acute urinary retention -straight cath with 1.4L return -will repeat bladder scan in 6 hours, if retaining >[address] [place] -Continue tamsulosin -Urology following: suspect multifactorial, UA without infection or blood 05/05 Voiding okay today Continue tamsulosin #Necrotic left fifth digit, c/f osteomyelitis s/p amputation 05/02 -MRI +OM, infectious work up MSSA -Consult Ortho, planning for amputation -Consult ID for duration of abx treatment -Recommended 3-5 days po augmentin post-operatively (EOT 05/07) -PT/OT when able -Pain management :history of GIB, no ibuprogen; scheduled NORCO given increased pain, IV dilaudid in between for break through; plan to wean as able, aggressive regimen to encourage PT participation for dispo planning 05/05 Continue oral Augmentin until May 07 Reports some left foot weakness, continue PT and OT evaluation #History of schizoaffective disorder, bipolar type Continues home medications of Lamictal, gabapentin, and risperidone #Transgender who identifies as female On estradiol, finasteride, and spironolactone #Rheumatoid arthritis Seems to be on Humira Follows with rheumatology #Obesity Discussed with patient and encouraged activity DVT prophylaxis SCDs for now, encourage ambulation Disposition medical floor Full code Admission and Anticipated Discharge Date Admission Date: April 30, 2023 Subjective Follow-up for left fifth toe osteomyelitis, status post amputation, etc. Seen resting in bed, comfortable, not in distress States she feels okay overall Still having significant pain over the surgical site, worse with ambulation Reports weakness of the left foot Otherwise no other symptoms Review of Systems Review of Systems: all noted and negative except for above Physical Exam Physical Exam: General- oriented x 3, not in distress, speaks in sentences with no effort or accessory muscle use Eyes- anicteric Neck- no JVD Lungs- clear breath sounds bilaterally, no rales/wheezes Heart- normal rate, regular rhythm; no murmurs Abdomen- normal bowel sounds, nondistended, soft, nontender Extremities- no pretibial edema, no calf tenderness Left foot: Heavy dressing in place, no active bleeding or discharge noted Neuro- alert, oriented x 3; no gross focal neurologic deficits Skin- warm & dry Results & Data Results & Data Vital Signs (Past 12 Hours) Vital Signs Temp Pulse Resp BP Pulse Ox O2 Del Method 05/05/23 15:11 36.8 C 76 17 113/77 96 Room Air 05/05/23 07:32 36.5 C 70 17 114/77 96 Room Air all noted and reviewed including below (1) Osteomyelitis Laterality: left Osteomyelitis location: foot Osteomyelitis type: unspecified type Qualified Code(s): M86.9 - Osteomyelitis, unspecified
[2023-05-05] MEDS: lamoTRIgine 100 MG TAB PO SCH (21:07)
[2023-05-05] MEDS: TAMSULOSIN HCL 0.4 MG CAP PO SCH (21:07)
[2023-05-06] MEDS: hydrOXYzine HCl 25 MG TAB PO PRN (00:11)
[2023-05-06] MEDS: HYDROcodone/ACETAMINOPHEN 10/325 TAB PO SCH ×2 (02:55→08:22)
[2023-05-06] MEDS: AMOXICILLIN/CLAVULANATE 875 MG TAB PO SCH (08:11)
[2023-05-06] MEDS: ADVANCED PROBIOTIC 1250 MG CAPSULE PO SCH (08:11)
[2023-05-06] MEDS: SPIRONOLACTONE 25 MG TAB PO SCH ×2 (08:11→17:53)
[2023-05-06] MEDS: estradioL 1 MG TAB PO SCH ×2 (08:12→20:42)
[2023-05-06] MEDS: PANTOprazole 40 MG TAB PO SCH (08:13)
[2023-05-06] MEDS: FINASTERIDE 5 MG TAB PO SCH (08:13)
[2023-05-06] MEDS: risperiDONE 0.5 MG TABLET PO SCH ×2 (08:14→20:40)
[2023-05-06] MEDS: GABAPENTIN 400 MG CAP PO SCH ×2 (08:14→20:41)
[2023-05-06] MEDS: POLYETHYLENE (MIRALAX) 17 GM PACK PO PRN (10:04)
[2023-05-06] MEDS ORDERED: LACTULOSE SYRUP 20 GM/30 ML UDC PO ONE (14:54)
[2023-05-06] MEDS ORDERED: HYDROcodone/ACETAMINOPHEN 10/325 TAB PO PRN (14:55)
--- NOTE | 2023-05-06 16:08 | Hospitalist Progress Note ---
Date of Service May 06, 2023 Assessment & Plan (1) Osteomyelitis: (2) Infection of left foot: Plan: Ms. Mckeon is a 27-year-old transgender male who identifies as female and prefers the name Ethel with past medical history significant for GERD, obstruc tive apnea CPAP intolerance, seronegative rheumatoid arthritis, schizoaffective disorder, anxiety/mood disorder, ADHD, and anosmia, secondary to congenital nasal septal deviation s/p surgery who recently had prolonged admission for suicidal attempt resulting in acute respiratory failure requiring mechanical ventilation. During that time, a small hemorrhagic like blister formed on the left fifth di git. Podiatry evaluated toe with strong suspicion of bullous hemorrhagic dermatosis suspected. Patient follow up routinely in wound care clinic with concerns of progression on 04/28. Patient presented due to continued worsening and redness at base of lesion. Patient now POD #4 from fifth digit amputation #Chronic normocytic anemia Stable post-operatively, ctm Hemoglobin stable at 12.1 #Acute urinary retention -straight cath with 1.4L return -will repeat bladder scan in 6 hours, if retaining >[address] [place] -Continue tamsulosin, now voiding without issue #Necrotic left fifth digit, c/f osteomyelitis s/p amputation 05/02 -MRI +OM, infectious work up MSSA POD #4 from fifth digit amputation by Dr. Palm -ID consulted - recommended 3-5 days po augmentin post-operatively (EOT 05/07) -PT/OT -> recommending rehab, patient agreeable -Pain management :history of GIB, no ibuprogen; scheduled NORCO given increased pain, IV dilaudid in between for break through; plan to wean as able, aggressive regimen to encourage PT participation for dispo planning #History of schizoaffective disorder, bipolar type Continues home medications of Lamictal, gabapentin, and risperidone #Transgender who identifies as female On estradiol, finasteride, and spironolactone #Rheumatoid arthritis Seems to be on Humira Follows with rheumatology #Obesity Discussed with patient and encouraged activity DVT prophylaxis SCDs for now, encourage ambulation Dispo: now agreeable to rehab, CM working on auth Patient seen in collaboration with Dr. Alvarenga. Please see addendum. Admission and Anticipated Discharge Date Admission Date: April 30, 2023 Subjective Follow-up for left fifth toe osteomyelitis, status post amputation, etc. Seen resting in bed, comfortable, not in distress. Endorsing intermittent pain in right foot but overall she feels better. Has some concern about dressing changes when she becomes responsible. Had a long discussion about rehab and is now agreeable. Denies any fever, chills, chest pain, shortness of breath, nausea, vomiting, abdominal pain, dysuria. Chronic constipation, no bowel movement the past few days. Review of Systems Review of Systems: At least ten systems reviewed and negative except as noted in the HPI. Physical Exam Physical Exam: Gen: WD/WN, NAD, laying in bed resting comfortably, A&Ox3, cooperative HEENT: Normocephalic, atraumatic, conjunctivae moist, sclerae anicteric, mucous membranes moist Lung: Clear to Auscultation bilaterally, no wheezes/rales/rhonchi Heart: Regular rate, regular rhythm, no murmurs, rubs, or gallops Abdomen: Soft, NT, ND +BS x 4 Extremities: R foot with heavy dressing in place, no active bleeding or discharge noted, no edema Skin: Warm, no rash Results & Data Results & Data Vital Signs (Past 12 Hours) Vital Signs Temp Pulse Resp BP Pulse Ox O2 Del Method 05/06/23 14:41 36.5 C 84 16 124/78 92 Room Air 05/06/23 08:07 36.5 C 69 16 120/87 97 Room Air Diagnostic Findings Foot X-Ray 04/30/23 17:58 XR foot LT min 3V routine CLINICAL HISTORY: 5th digit necrosis COMPARISON: Left foot radiographs April 06, 2023. FINDINGS: Alignment of the left foot is anatomic. Tarsometatarsal joints are intact. Marked soft tissue swelling of the left fifth toe is again noted. There has been interval development of suspected erosion of the medial distal aspect of the proximal phalanx of the left fifth toe. There are also possible erosions of the middle and distal phalanges of the left fifth toe. No acute fractures are identified. IMPRESSION: Redemonstration of marked soft tissue swelling of the left fifth toe. Suspected interval development of erosions of the left fifth proximal, middle and distal phalanges, as described above. The findings are suspicious for acute osteomyelitis. MRI could be obtained as indicated. ACT 112: Negative or not required by law. Electronically signed by: Cuate You M.D. 04/30/2023 6:[address] 04/30/23 20:40 Exam(s): CT LEFT FOOT Without Contrast EXAM: CT Left Lower Extremity Without Intravenous Contrast, Foot CLINICAL HISTORY: Reason for exam: osteomyelitis. TECHNIQUE: Axial computed tomography images of the left foot without intravenous contrast. CTDI is 24.91 mGy and DLP is 515.44 mGy-cm. Automated exposure control was utilized for the study. A dose lowering technique was utilized adhering to the principles of ALARA. COMPARISON: No relevant prior studies available. FINDINGS/IMPRESSION: Ulcer along the plantar, lateral aspect of the fifth metatarsal. Focal osteopenia in the fifth metatarsal head, concerning for early osteomyelitis. This should be confirmed with MRI. Severe soft tissue skin thickening and phlegmonous change in the fifth toe, consistent with infection. No fluid collection or abscess. Electronically signed by: Alexandre Murillo MD 04/30/23 22:50 PM Foot MRI 05/01/23 07:05 MR foot LT w/o con HISTORY: Left fifth toe wound. Assess for osteomyelitis. c/f 5th digit osteomyelitis TECHNIQUE: Multiplanar multisequence MRI of the left forefoot was performed without contrast according to standard departmental protocol. COMPARISON STUDY: Left foot CT 05/01/2023. FINDINGS: Soft tissue edema within the dorsum of the forefoot most pronounced laterally. There is also soft tissue edema throughout the left fifth toe. No acute fracture or dislocation within the forefoot. The Lisfranc joint is intact. The flexor and extensor tendons are normal and course, caliber, and signal intensity. There is abnormal marrow signal within the distal phalanx of the fifth toe. No abnormal marrow signal within the proximal or middle phalanx of the fifth toe. Cortical irregularity at the distal phalanx of the fifth toe. IMPRESSION: Abnormal marrow signal and mild cortical irregularity at the distal phalanx of the left fifth toe. This is concerning for an osteomyelitis. ACT 112: Negative or not required by law. Electronically signed by: Abhishek Ohara M.D. 05/01/2023 2:55 PM Renal Ultrasound 05/03/23 21:45 Exam(s): US RENAL EXAM: US Retroperitoneal Limited, Renal CLINICAL HISTORY: Reason for exam: rentention obstruction. TECHNIQUE: Real-time limited ultrasound of the retroperitoneum with image documentation. COMPARISON: None. FINDINGS: Right kidney: Right kidney measures 11.1 cm in long axis. No stones. No hydronephrosis. Left kidney: Left kidney measures 9.6 cm in long axis. No stones. No hydronephrosis. Bladder: Urinary bladder is distended with approximately volume 1253 mL. Other findings: Hepatic steatosis. IMPRESSION: 1. Urinary bladder is distended with approximately volume 1253 mL. This is compatible with reported history of urinary retention. No hydronephrosis. Recommend clinical correlation. 2. Hepatic steatosis. Electronically signed by: Amor Quinn MD 05/03/23 23:43 PM (1) Osteomyelitis Laterality: left Osteomyelitis location: foot Osteomyelitis type: unspecified type Qualified Code(s): M86.9 - Osteomyelitis, unspecified
--- NOTE | 2023-05-06 18:33 | Orthopedic Progress Note ---
Date of Service May 06, 2023 Assessment & Plan (1) Osteomyelitis: Plan: Patient seen and evaluated in room 318-1. Patient status post day #4 left fifth toe amputation (DOS: 05/02/23) Patient does complain of left foot and ankle mobility deficit. We did review continued use of PT/OT. Patient is weight bearing as tolerated. Dressing is optional. Area can get wet but do not soak. Patient voices understanding. Will continue to follow while patient remains in house. Thank you for allowing me to participate in the care of this Patient. (2) Infection of left foot: Admission and Anticipated Discharge Date Admission Date: April 30, 2023 Subjective Patient seen at bedside in room 318-1. Patient status post day #1 left fifth toe amputation (DOS: 05/02/23) Patient is resting comfortably. Pain is controlled. Patient complains of limited range of motion in foot and ankle. Patient notes numbness and tingling in foot. Review of Systems Review of Systems: All systems reviewed & are unremarkable except as noted in Subjective Physical Exam Constitutional: well developed, well nourished, cooperative and comfortable Cardiovascular: Rate/Rhythm: regular rate and regular rhythm Vessels: posterior tibial pulses present and dorsalis pedis pulses present Musculoskeletal: Extremities: extremities normal to inspection Skin: + ulcer (Left fifth toe wound) and + wou nd (Left toe amputation site well coapted. Sutures intact.) Neurologic: moves all extremities Psychiatric: Orientation: alert and oriented x 3 Results & Data Vital Signs (Past 12 Hours) Vital Signs Temp Pulse Resp BP Pulse Ox O2 Del Method 05/06/23 14:41 36.5 C 84 16 124/78 92 Room Air 05/06/23 08:07 36.5 C 69 16 120/87 97 Room Air (1) Osteomyelitis Laterality: left Osteomyelitis location: foot Osteomyelitis type: unspecified type Qualified Code(s): M86.9 - Osteomyelitis, unspecified
[2023-05-06] MEDS: lamoTRIgine 100 MG TAB PO SCH (20:41)
[2023-05-06] MEDS: TAMSULOSIN HCL 0.4 MG CAP PO SCH (20:41)
[2023-05-07 06:31] LABS: Hematocrit (blood only) 38.2 % (42.0-52.0); Hemoglobin 12.4 g/dl (14.0-18.0); Mean Corpuscular Hgb Conc 32.5 g/dL (32.0-36.0); Mean Platelet Volume 9.2 fL (9.4-12.4); Platelet Count 343 K/uL (130-400); RDW Coefficient of Variation 18.6 % (11.5-14.5); White Blood Count 6.87 K/ul (4.8-10.8)
[2023-05-07 07:01] LABS: BUN Creatinine Ratio 15.8 (10-20); Calcium 9.7 mg/dl (8.6-10.3); Creatinine Clr Calc Pharmacy 175.5 ml/min; Est GFR (African American) 128.4 ml/min; Est GFR (Non-African American) 110.8 ml/min; Potassium 4.1 mmol/L (3.5-5.1)
[2023-05-07] MEDS: estradioL 1 MG TAB PO SCH ×2 (08:35→20:08)
[2023-05-07] MEDS: ADVANCED PROBIOTIC 1250 MG CAPSULE PO SCH (08:35)
[2023-05-07] MEDS: PANTOprazole 40 MG TAB PO SCH (08:35)
[2023-05-07] MEDS: FINASTERIDE 5 MG TAB PO SCH (08:35)
[2023-05-07] MEDS: GABAPENTIN 400 MG CAP PO SCH ×2 (08:35→20:08)
[2023-05-07] MEDS: SPIRONOLACTONE 25 MG TAB PO SCH ×2 (08:36→16:40)
[2023-05-07] MEDS: risperiDONE 0.5 MG TABLET PO SCH ×2 (08:36→20:08)
[2023-05-07] MEDS: ACETAMINOPHEN 325 MG TAB PO PRN ×3 (09:00→23:50)
[2023-05-07] MEDS: HYDROCORTISONE VAL 0.2% CRM 15GM TUBE EXT SCH ×2 (09:59→20:08)
[2023-05-07] MEDS ORDERED: LACTULOSE SYRUP 20 GM/30 ML UDC PO ONE (13:39)
--- NOTE | 2023-05-07 16:34 | Hospitalist Progress Note ---
Date of Service May 07, 2023 Assessment & Plan (1) Osteomyelitis: (2) Infection of left foot: Plan: Ms. Mckeon is a 27-year-old transgender male who identifies as female and prefers the name Ethel with past medical history significant for GERD, obstruc tive apnea CPAP intolerance, seronegative rheumatoid arthritis, schizoaffective disorder, anxiety/mood disorder, ADHD, and anosmia, secondary to congenital nasal septal deviation s/p surgery who recently had prolonged admission for suicidal attempt resulting in acute respiratory failure requiring mechanical ventilation. During that time, a small hemorrhagic like blister formed on the left fifth di git. Podiatry evaluated toe with strong suspicion of bullous hemorrhagic dermatosis suspected. Patient follow up routinely in wound care clinic with concerns of progression on 04/28. Patient presented due to continued worsening and redness at base of lesion. Patient now POD #5 from fifth digit amputation #Chronic normocytic anemia Stable post-operatively, ctm Hemoglobin stable at 12.4 #Acute urinary retention -straight cath with 1.4L return -will repeat bladder scan in 6 hours, if retaining >[address] [place] -Continue tamsulosin, now voiding without issue #Necrotic left fifth digit, c/f osteomyelitis s/p amputation 05/02 -MRI +OM, infectious work up MSSA POD #4 from fifth digit amputation by Dr. Palm -ID consulted - recommended 3-5 days po augmentin post-operatively, completing Augmentin treatment today on 05/07/23 -PT/OT -> recommending rehab, patient agreeable -Pain management :history of GIB, no ibuprogen; scheduled NORCO given increased pain, IV dilaudid in between for break through; plan to wean as able, aggressive regimen to encourage PT participation for dispo planning #History of schizoaffective disorder, bipolar type Continues home medications of Lamictal, gabapentin, and risperidone #Transgender who identifies as female On estradiol, finasteride, and spironolactone #Rheumatoid arthritis Seems to be on Humira Follows with rheumatology #Obesity Discussed with patient and encouraged activity DVT prophylaxis: SQ lovenox, encourage ambulation Dispo: now agreeable to rehab, CM working on [facility], may have bed tomorrow Patient seen in collaboration with Dr. Alvarenga. Please see addendum. Admission and Anticipated Discharge Date Admission Date: April 30, 2023 Subjective Seen in follow-up for left fifth toe osteomyelitis, status post amputation, etc. Seen resting in bed, comfortable, not in distress. Endorsing intermittent pain in right foot but overall she feels better. Had a long discussion about rehab and is now agreeable but awaiting auth. Had a bowel movement after lactulose. Denies any fever, chills, chest pain, shortness of breath, nausea, vomiting, abdominal pain, dysuria. Review of Systems Review of Systems: At least ten systems reviewed and negative except as noted in the HPI. Physical Exam Physical Exam: Gen: WD/WN, NAD, laying in bed resting comfortably, A&Ox3, cooperative HEENT: Normocephalic, atraumatic, conjunctivae moist, sclerae anicteric, mucous membranes moist Lung: Clear to Auscultation bilaterally, no wheezes/rales/rhonchi Heart: Regular rate, regular rhythm, no murmurs, rubs, or gallops Abdomen: Soft, NT, ND +BS x 4 Extremities: R foot with dressing in place, c/d/i, no edema Skin: Warm, no rash Results & Data Results & Data Vital Signs (Past 12 Hours) Vital Signs Temp Pulse Resp BP Pulse Ox O2 Del Method 05/07/23 14:09 36.6 C 92 H 18 115/81 94 Room Air 05/07/23 07:24 36.4 C L 73 16 119/79 97 Room Air Laboratory Results Short CBC 05/07/23 Range/Units 06:13 WBC 6.87 (4.8-10.8) K/ul Hgb 12.4 L (14.0-18.0) g/dl Hct 38.2 L (42.0-52.0) % Plt Count 343 (130-400) K/uL BMP 05/07/23 06:13 Sodium 136 Potassium 4.1 Chloride 106 Carbon Dioxide 24 BUN 15 Creatinine 0.95 Glucose 86 Calcium 9.7 Diagnostic Findings Foot X-Ray 04/30/23 17:58 XR foot LT min 3V routine CLINICAL HISTORY: 5th digit necrosis COMPARISON: Left foot radiographs April 06, 2023. FINDINGS: Alignment of the left foot is anatomic. Tarsometatarsal joints are intact. Marked soft tissue swelling of the left fifth toe is again noted. There has been interval development of suspected erosion of the medial distal aspect of the proximal phalanx of the left fifth toe. There are also possible erosions of the middle and distal phalanges of the left fifth toe. No acute fractures are identified. IMPRESSION: Redemonstration of marked soft tissue swelling of the left fifth toe. Suspected interval development of erosions of the left fifth proximal, middle and distal phalanges, as described above. The findings are suspicious for acute osteomyelitis. MRI could be obtained as indicated. ACT 112: Negative or not required by law. Electronically signed by: Cuate You M.D. 04/30/2023 6:[address] 04/30/23 20:40 Exam(s): CT LEFT FOOT Without Contrast EXAM: CT Left Lower Extremity Without Intravenous Contrast, Foot CLINICAL HISTORY: Reason for exam: osteomyelitis. TECHNIQUE: Axial computed tomography images of the left foot without intravenous contrast. CTDI is 24.91 mGy and DLP is 515.44 mGy-cm. Automated exposure control was utilized for the study. A dose lowering technique was utilized adhering to the principles of ALARA. COMPARISON: No relevant prior studies available. FINDINGS/IMPRESSION: Ulcer along the plantar, lateral aspect of the fifth metatarsal. Focal osteopenia in the fifth metatarsal head, concerning for early osteomyelitis. This should be confirmed with MRI. Severe soft tissue skin thickening and phlegmonous change in the fifth toe, consistent with infection. No fluid collection or abscess. Electronically signed by: Alexandre Murillo MD 04/30/23 22:50 PM Foot MRI 05/01/23 07:05 MR foot LT w/o con HISTORY: Left fifth toe wound. Assess for osteomyelitis. c/f 5th digit osteomyelitis TECHNIQUE: Multiplanar multisequence MRI of the left forefoot was performed without contrast according to standard departmental protocol. COMPARISON STUDY: Left foot CT 05/01/2023. FINDINGS: Soft tissue edema within the dorsum of the forefoot most pronounced laterally. There is also soft tissue edema throughout the left fifth toe. No acute fracture or dislocation within the forefoot. The Lisfranc joint is intact. The flexor and extensor tendons are normal and course, caliber, and signal intensity. There is abnormal marrow signal within the distal phalanx of the fifth toe. No abnormal marrow signal within the proximal or middle phalanx of the fifth toe. Cortical irregularity at the distal phalanx of the fifth toe. IMPRESSION: Abnormal marrow signal and mild cortical irregularity at the distal phalanx of the left fifth toe. This is concerning for an osteomyelitis. ACT 112: Negative or not required by law. Electronically signed by: Abhishek Ohara M.D. 05/01/2023 2:55 PM Renal Ultrasound 05/03/23 21:45 Exam(s): US RENAL EXAM: US Retroperitoneal Limited, Renal CLINICAL HISTORY: Reason for exam: rentention obstruction. TECHNIQUE: Real-time limited ultrasound of the retroperitoneum with image documentation. COMPARISON: None. FINDINGS: Right kidney: Right kidney measures 11.1 cm in long axis. No stones. No hydronephrosis. Left kidney: Left kidney measures 9.6 cm in long axis. No stones. No hydronephrosis. Bladder: Urinary bladder is distended with approximately volume 1253 mL. Other findings: Hepatic steatosis. IMPRESSION: 1. Urinary bladder is distended with approximately volume 1253 mL. This is compatible with reported history of urinary retention. No hydronephrosis. Recommend clinical correlation. 2. Hepatic steatosis. Electronically signed by: Amor Quinn MD 05/03/23 23:43 PM (1) Osteomyelitis Laterality: left Osteomyelitis location: foot Osteomyelitis type: unspecified type Qualified Code(s): M86.9 - Osteomyelitis, unspecified
[2023-05-07] MEDS: ENOXAPARIN INJ 40 MG/0.4 ML SYR SQ SCH (17:42)
[2023-05-07] MEDS: TAMSULOSIN HCL 0.4 MG CAP PO SCH (20:07)
[2023-05-07] MEDS: lamoTRIgine 100 MG TAB PO SCH (20:08)
[2023-05-08 07:09] LABS: Hematocrit (blood only) 38.7 % (42.0-52.0); Hemoglobin 12.9 g/dl (14.0-18.0); Mean Corpuscular Hemoglobin 26.8 pg (25.0-34.0); Mean Corpuscular Hgb Conc 33.3 g/dL (32.0-36.0); Mean Corpuscular Volume 80.5 fL (80.0-100.0); Mean Platelet Volume 9.7 fL (9.4-12.4); Platelet Count 357 K/uL (130-400); RDW Coefficient of Variation 18.5 % (11.5-14.5); RDW Standard Deviation 54.1 fL (36.4-46.3); Red Blood Count 4.81 M/uL (4.70-6.10)
[2023-05-08 07:30] LABS: BUN Creatinine Ratio 15.8 (10-20); Calcium 9.6 mg/dl (8.6-10.3); Creatinine Clr Calc Pharmacy 175.5 ml/min; Est GFR (African American) 128.4 ml/min; Est GFR (Non-African American) 110.8 ml/min; Potassium 3.9 mmol/L (3.5-5.1)
[2023-05-08] MEDS: risperiDONE 0.5 MG TABLET PO SCH ×2 (08:09→21:18)
[2023-05-08] MEDS: SPIRONOLACTONE 25 MG TAB PO SCH ×2 (08:09→17:26)
[2023-05-08] MEDS: FINASTERIDE 5 MG TAB PO SCH (08:10)
[2023-05-08] MEDS: GABAPENTIN 400 MG CAP PO SCH ×2 (08:10→21:18)
[2023-05-08] MEDS: ADVANCED PROBIOTIC 1250 MG CAPSULE PO SCH (08:10)
[2023-05-08] MEDS: PANTOprazole 40 MG TAB PO SCH (08:10)
[2023-05-08] MEDS: estradioL 1 MG TAB PO SCH ×2 (08:10→21:18)
[2023-05-08] MEDS: HYDROCORTISONE VAL 0.2% CRM 15GM TUBE EXT SCH ×2 (08:12→21:18)
--- NOTE | 2023-05-08 16:33 | Hospitalist Progress Note ---
Date of Service May 08, 2023 Assessment & Plan (1) Osteomyelitis: (2) Infection of left foot: Plan: per ISRAEL Cortes's notes with addendum: Ms. Mckeon is a 27-year-old transgender male who identifies as female and prefers the name Ethel with past medical history significant for GERD, obstructive apnea CPAP intolerance, seronegative rheumatoid arthritis, schizoaffective disorder, anxiety/mood disorder, ADHD, and anosmia, secondary to congenital nasal septal deviation s/p surgery who recently had prolonged admission for suicidal attempt resulting in acute respiratory failure requiring mechanical ventilation. During that time, a small hemorrhagic like blister formed on the left fifth digit. Podiatry evaluated toe with strong suspicion of bullous hemorrhagic dermatosis suspected. Patient follow up routinely in wound care clinic with concerns of progression on 04/28. Patient presented due to continued worsening and redness at base of lesion. Patient now POD #5 from fifth digit amputation #Chronic normocytic anemia Stable post-operatively, ctm Hemoglobin stable at 12.4 stable at 12.9 #Acute urinary retention -straight cath with 1.4L return -will repeat bladder scan in 6 hours, if retaining >[address] [place] -Continue tamsulosin, now voiding without issue voiding well #Necrotic left fifth digit, c/f osteomyelitis s/p amputation 05/02 -MRI +OM, infectious work up MSSA POD #4 from fifth digit amputation by Dr. Palm -ID consulted - recommended 3-5 days po augmentin post-operatively, completing Augmentin treatment today on 05/07/23 -PT/OT -> recommending rehab, patient agreeable -Pain management :history of GIB, no ibuprogen; scheduled NORCO given increased pain, IV dilaudid in between for break through; plan to wean as able, aggressive regimen to encourage PT participation for dispo planning 05/08 pain improving #History of schizoaffective disorder, bipolar type Continues home medications of Lamictal, gabapentin, and risperidone #Transgender who identifies as female -- On estradiol, finasteride, and spironolactone #Rheumatoid arthritis -- Seems to be on Humira -- Follows with rheumatology #Obesity Discussed with patient and encouraged activity DVT prophylaxis: SQ lovenox, encourage ambulation Dispo: patient would like to be discharged home on Wednesday Mom will be able to get here from [place] on Wednesday Admission and Anticipated Discharge Date Admission Date: April 30, 2023 Subjective Follow-up status post left fifth toe amputation, etc. Seen resting in bed, watching video on his phone Comfortable, not in distress Good spirits States she feels fine overall Pain on the surgical site improving No other new symptoms Review of Systems Review of Systems: all noted and negative except for above Physical Exam Physical Exam: General- oriented x 3, not in distress, speaks in sentences with no effort or accessory muscle use Eyes- anicteric Neck- no JVD Lungs- clear breath sounds bilaterally Heart- normal rate, regular rhythm; no murmurs Abdomen- normal bowel sounds, nondistended, soft, nontender Extremities- no pretibial edema, no calf tenderness Neuro- alert, oriented x 3; no gross focal neurologic deficits Skin- warm & dry Results & Data Results & Data Vital Signs (Past 12 Hours) Vital Signs Temp Pulse Resp BP Pulse Ox O2 Del Method 05/08/23 15:24 36.4 C L 68 16 110/75 98 Room Air 05/08/23 08:00 36.5 C 77 16 120/74 97 Room Air all noted and reviewed including below (1) Osteomyelitis Laterality: left Osteomyelitis location: foot Osteomyelitis type: unspecified type Qualified Code(s): M86.9 - Osteomyelitis, unspecified
[2023-05-08] MEDS: ENOXAPARIN INJ 40 MG/0.4 ML SYR SQ SCH (17:27)
[2023-05-08] MEDS: TAMSULOSIN HCL 0.4 MG CAP PO SCH (21:18)
[2023-05-08] MEDS: lamoTRIgine 100 MG TAB PO SCH (21:18)
[2023-05-08] MEDS: ACETAMINOPHEN 325 MG TAB PO PRN (21:24)
[2023-05-09] MEDS: risperiDONE 0.5 MG TABLET PO SCH ×2 (09:13→20:35)
[2023-05-09] MEDS: GABAPENTIN 400 MG CAP PO SCH ×2 (09:14→20:33)
[2023-05-09] MEDS: SPIRONOLACTONE 25 MG TAB PO SCH ×2 (09:14→17:58)
[2023-05-09] MEDS: FINASTERIDE 5 MG TAB PO SCH (09:14)
[2023-05-09] MEDS: PANTOprazole 40 MG TAB PO SCH (09:14)
[2023-05-09] MEDS: HYDROCORTISONE VAL 0.2% CRM 15GM TUBE EXT SCH ×2 (09:14→20:35)
[2023-05-09] MEDS: ADVANCED PROBIOTIC 1250 MG CAPSULE PO SCH (09:14)
[2023-05-09] MEDS: estradioL 1 MG TAB PO SCH ×2 (09:14→20:34)
--- NOTE | 2023-05-09 16:25 | Hospitalist Progress Note ---
Date of Service May 09, 2023 Assessment & Plan (1) Osteomyelitis: (2) Infection of left foot: Plan: per ISRAEL Cortes's notes with addendum: Ms. Mckeon is a 27-year-old transgender male who identifies as female and prefers the name Ethel with past medical history significant for GERD, obstructive apnea CPAP intolerance, seronegative rheumatoid arthritis, schizoaffective disorder, anxiety/mood disorder, ADHD, and anosmia, secondary to congenital nasal septal deviation s/p surgery who recently had prolonged admission for suicidal attempt resulting in acute respiratory failure requiring mechanical ventilation. During that time, a small hemorrhagic like blister formed on the left fifth digit. Podiatry evaluated toe with strong suspicion of bullous hemorrhagic dermatosis suspected. Patient follow up routinely in wound care clinic with concerns of progression on 04/28. Patient presented due to continued worsening and redness at base of lesion. Patient now POD #5 from fifth digit amputation #Chronic normocytic anemia Stable post-operatively, ctm Hemoglobin stable at 12.4 stable at 12.9 #Acute urinary retention -straight cath with 1.4L return -will repeat bladder scan in 6 hours, if retaining >[address] [place] -Continue tamsulosin, now voiding without issue voiding well #Necrotic left fifth digit, c/f osteomyelitis s/p amputation 05/02 -MRI +OM, infectious work up MSSA POD #4 from fifth digit amputation by Dr. Palm -ID consulted - recommended 3-5 days po augmentin post-operatively, completing Augmentin treatment today on 05/07/23 -PT/OT -> recommending rehab, patient agreeable -Pain management :history of GIB, no ibuprogen; scheduled NORCO given increased pain, IV dilaudid in between for break through; plan to wean as able, aggressive regimen to encourage PT participation for dispo planning 05/09 pain improving Completed antibiotic therapy #History of schizoaffective disorder, bipolar type Continues home medications of Lamictal, gabapentin, and risperidone #Transgender who identifies as female -- On estradiol, finasteride, and spironolactone #Rheumatoid arthritis -- Seems to be on Humira -- Follows with rheumatology #Obesity Discussed with patient and encouraged activity DVT prophylaxis: SQ lovenox, encourage ambulation Dispo: patient would like to be discharged home on Wednesday Mom will be able to get here from [place] on Robert Admission and Anticipated Discharge Date Admission Date: April 30, 2023 Subjective Follow-up for toe osteomyelitis, status post amputation, etc. Seen resting in bed, comfortable, not in distress States she is feeling improved overall Foot pain improving Able to ambulate better No other new symptoms Review of Systems Review of Systems: all noted and negative except for above Physical Exam Physical Exam: General- oriented x 3, not in distress, speaks in sentences with no effort or accessory muscle use Eyes- anicteric Neck- no JVD Lungs- clear breath sounds BL Heart- normal rate, regular rhythm; no murmurs Abdomen- normal bowel sounds, nondistended, soft, nontender Extremities- no pretibial edema, no calf tenderness Neuro- alert, oriented x 3; no gross focal neurologic deficits Skin- warm & dry Results & Data Results & Data Vital Signs (Past 12 Hours) Vital Signs Temp Pulse Resp BP Pulse Ox O2 Del Method 05/09/23 15:38 36.6 C 70 16 138/89 97 Room Air 05/09/23 07:52 36.5 C 77 16 134/77 96 Room Air all noted and reviewed including below (1) Osteomyelitis Laterality: left Osteomyelitis location: foot Osteomyelitis type: unspecified type Qualified Code(s): M86.9 - Osteomyelitis, unspecified
[2023-05-09] MEDS: ENOXAPARIN INJ 40 MG/0.4 ML SYR SQ SCH (17:59)
[2023-05-09] MEDS: TAMSULOSIN HCL 0.4 MG CAP PO SCH (20:33)
[2023-05-09] MEDS: lamoTRIgine 100 MG TAB PO SCH (20:33)
[2023-05-10] MEDS: SPIRONOLACTONE 25 MG TAB PO SCH (07:47)
[2023-05-10] MEDS: risperiDONE 0.5 MG TABLET PO SCH (07:48)
[2023-05-10] MEDS: estradioL 1 MG TAB PO SCH (07:48)
[2023-05-10] MEDS: PANTOprazole 40 MG TAB PO SCH (07:48)
[2023-05-10] MEDS: ADVANCED PROBIOTIC 1250 MG CAPSULE PO SCH (07:48)
[2023-05-10] MEDS: GABAPENTIN 400 MG CAP PO SCH (07:48)
[2023-05-10] MEDS: FINASTERIDE 5 MG TAB PO SCH (07:48)
[2023-05-10] MEDS: HYDROCORTISONE VAL 0.2% CRM 15GM TUBE EXT SCH (07:49)
--- NOTE | 2023-05-10 16:00 | Discharge Summary ---
Discharge Summary Date of Service May 10, 2023 Notes For Next Care Provider Medication Changes From Visit None Admission HPI Per Admitting Provider 27-year-old transgender male who identifies as female and prefers the name Ethel with past medical history significant for GERD, obstructive apnea CPAP intolerance, seronegative rheumatoid arthritis, schizoaffective disorder, anxiety/mood disorder, ADHD, and anosmia, secondary to congenital nasal septal deviation s/p surgery who was recently in the hospital for acute metabolic encephalopathy due to drug overdose and alcohol and anoxia with acute respiratory failure with hypoxia and hypercarbia and aspiration pneumonia and was intubated and treated with IV antibiotics and he also noted to be galactomannan antigen positive and ID recommend no treatment and had multiple electrolyte abnormalities which were repleted and he also had episode of bloody emesis which was treated with IV Protonix ,GI saw the patient and thought there was no indication for EGD and there was a question of possible esophageal dysfunction and he was also was sent to psychiatric floor but upon positive for rhinovirus was transferred back to medical floor for droplet precautions and was discharged home on April 14 2023. During the hospitalization he was also treated for left small toe infection. He was discharged on boot and weight bearing as tolerated and to follow up with podiatry. As infection of left small toe getting worse he came to the ER today. Imaging study shows possible osteomyelitis. Says black discoloration of the left small toe getting worse. Has pain in that toe. He is ambulating slowly with cane. Denies any fevers. Has some headache. No blurred visions. No runny nose. No cough. Currently no chest pain or shortness of breath. No nausea. No abdominal pain. Resting comfortably and hemodynamic stable. Past medical history. As mentioned above Past surgical history. EGD, laparoscopic cholecystectomy, repair of nasal septum bilaterally. Social history. Single. No smoking. No alcohol. No drug use. Family history. Mother has depression, anxiety. Father has diabetes. Anxiety, rheumatoid arthritis. Paternal grandmother has lupus. Admission Exam Per Admitting Provider General- Not in distress Head- atraumatic Eyes- PERRL. ENT- oropharynx clear Neck- supple, no JVD. Lungs- clear to auscultation , no wheezing or crackles. Heart- regular rhythm; no murmur, no gallop. Abdomen- normal bowel sounds, soft, nontender, no distension. Extremities- Left small toe is erythematous and black discoloration with drainage seen. black discoloration extending below left small toe. Neuro- alert, oriented x 3; PERRL no facial palsy; no dysarthria; moves extremities. Principal Dx & Hospital Course #1 = Principal Diagnosis (1) Osteomyelitis: (2) Infection of left foot: per ISRAEL Cortes's notes with addendum: Ms. Mckeon is a 27-year-old transgender male who identifies as female and prefers the name Ethel with past medical history significant for GERD, obstructive apnea CPAP intolerance, seronegative rheumatoid arthritis, schizoaffective disorder, anxiety/mood disorder, ADHD, and anosmia, secondary to congenital nasal septal deviation s/p surgery who recently had prolonged admission for suicidal attempt resulting in acute respiratory failure requiring mechanical ventilation. During that time, a small hemorrhagic like blister formed on the left fifth digit. Podiatry evaluated toe with strong suspicion of bullous hemorrhagic dermatosis suspected. Patient follow up routinely in wound care clinic with concerns of progression on 04/28. Patient presented due to continued worsening and redness at base of lesion. Patient now POD #5 from fifth digit amputation #Necrotic left fifth digit, c/f osteomyelitis s/p amputation 05/02 -MRI +OM, infectious work up MSSA -ID consulted - recommended 3-5 days po augmentin post-operatively, completed Augmentin treatment 05/07/23 Pain well-controlled by as needed Tylenol Patient prefers to be discharged home Currently need a walker for ambulation Follow-up with Dr. Palm in 1 week #Chronic normocytic anemia Stable post-operatively, ctm Hemoglobin stable at 12 #Acute urinary retention Given tamsulosin Resolved #History of schizoaffective disorder, bipolar type Continues home medications of Lamictal, gabapentin, and risperidone #Transgender who identifies as female -- On estradiol, finasteride, and spironolactone #Rheumatoid arthritis -- Seems to be on Humira -- Follows with rheumatology #Obesity Discussed with patient and encouraged activity Discharge Exam General- oriented x 3, not in distress, speaks in sentences with no effort or accessory muscle use Eyes- anicteric Neck- no JVD Lungs- clear breath sounds bilaterally, no rales/wheezes Heart- normal rate, regular rhythm; no murmurs Abdomen- normal bowel sounds, nondistended, soft, nontender Extremities- no pretibial edema, no calf tenderness Left foot: Wound healing well, sutures in place, minimal erythema on the area, no bleeding or No foot edema, tenderness, warmth Neuro- alert, oriented x 3; no gross focal neurologic deficits Skin- warm & dry Updated Medication List Medication Instructions Recorded Confirmed Type estradiol 2 mg tablet 2 mg PO BID 04/30/23 04/30/23 History finasteride 5 mg tablet 5 mg PO DAILY 04/30/23 04/30/23 History gabapentin 100 mg capsule 400 mg PO BID 04/30/23 04/30/23 History hydroxyzine HCl 25 mg tablet 25 mg PO Q4 PRN Anxiety 04/30/23 04/30/23 History hydroxyzine HCl 25 mg tablet 50 mg PO HS PRN Insomnia 04/30/23 04/30/23 History lamotrigine 25 mg tablet 100 mg PO QPM 04/30/23 04/30/23 History omeprazole 40 mg capsule,delayed 40 mg PO QAM 04/30/23 04/30/23 History release risperidone 0.5 mg tablet 0.25 mg PO BID 04/30/23 04/30/23 History spironolactone 50 mg tablet 50 mg PO BID 04/30/23 04/30/23 History acetaminophen 325 mg tablet 650 mg (2 x 325 mg) PO Q4H PRN 05/10/23 Rx fever or pain #20 tabs Hospital Stay Data Consultations 04/30/23 20:39 ED Decision to Admit Stat 05/01/23 08:00 Consult Orthopedic Surgery Routine 05/02/23 07:42 Consult Infectious Diseases Routine 05/03/23 21:22 Consult Urology Routine Procedures Performed Operation Date: 05/02/23 06:55 Actual Procedures p Amputation Toe left fifth toe(Left) - Cody Palm DPM, MS Diagnostic Imagining Performed Laboratory Results WBC 7.00 K/ul (4.8-10.8) 05/08/23 06:47 RBC 4.81 M/uL (4.70-6.10) 05/08/23 06:47 Hgb 12.9 g/dl (14.0-18.0) L 05/08/23 06:47 Hct 38.7 % (42.0-52.0) L 05/08/23 06:47 MCV 80.5 fL (80.0-100.0) 05/08/23 06:47 MCH 26.8 pg (25.0-34.0) 05/08/23 06:47 MCHC 33.3 g/dL (32.0-36.0) 05/08/23 06:47 RDW Std Deviation 54.1 fL (36.4-46.3) H 05/08/23 06:47 RDW Coeff of Rene 18.5 % (11.5-14.5) H 05/08/23 06:47 Plt Count 357 K/uL (130-400) 05/08/23 06:47 MPV 9.7 fL (9.4-12.4) 05/08/23 06:47 Immature Gran % (Auto) 0.3 % 05/01/23 05:30 Neut % (Auto) 58.4 % 05/01/23 05:30 Lymph % (Auto) 30.6 % 05/01/23 05:30 [place] % (Auto) 8.9 % 05/01/23 05:30 Eos % (Auto) 1.3 % 05/01/23 05:30 Baso % (Auto) 0.5 % 05/01/23 05:30 Neut # (Auto) 5.94 K/uL (1.40-6.50) 05/01/23 05:30 Lymph # (Auto) 3.12 K/uL (1.20-3.40) 05/01/23 05:30 [place] # (Auto) 0.91 K/uL (0.11-0.59) H 05/01/23 05:30 Eos # (Auto) 0.13 K/uL (0.00-0.50) 05/01/23 05:30 Baso # (Auto) 0.05 K/uL (0.00-0.20) 05/01/23 05:30 Immature Gran # (Auto) 0.03 K/uL (0.01-0.20) 05/01/23 05:30 ESR 41 mm/hr (0-15) H 04/30/23 18:24 Sodium 137 mmol/L (136-145) 05/08/23 06:47 Potassium 3.9 mmol/L (3.5-5.1) 05/08/23 06:47 Chloride 105 mmol/L (98-107) 05/08/23 06:47 Carbon Dioxide 24 mmol/L (21-32) 05/08/23 06:47 Anion Gap 8 (3-11) 05/08/23 06:47 BUN 15 mg/dl (6-23) 05/08/23 06:47 Creatinine 0.95 mg/dl (0.6-1.4) 05/08/23 06:47 Est Cr Clr Drug Dosing 175.5 ml/min 05/08/23 06:47 Est GFR ( Amer) 128.4 ml/min 05/08/23 06:47 Est GFR (Non-Af Amer) 110.8 ml/min 05/08/23 06:47 BUN/Creatinine Ratio 15.8 (10-20) 05/08/23 06:47 Glucose 88 mg/dl (70-99(Fasting)) 05/08/23 06:47 Lactate 1.2 mmol/L (0.4-2.0) 04/30/23 18:24 Calcium 9.6 mg/dl (8.6-10.3) 05/08/23 06:47 Phosphorus 4.5 mg/dl (2.5-4.9) 05/04/23 06:00 Magnesium 1.8 mg/dl (1.7-2.4) 05/04/23 06:00 Iron 50 mcg/dl (35-175) 05/04/23 06:00 TIBC 291 mcg/dl (250-450) 05/04/23 06:00 Unsaturated IBC 241 mcg/dl (155-355) 05/04/23 06:00 Transferrin % Sat 17 % (20-50) L 05/04/23 06:00 Ferritin 22.9 ng/ml (8-388) 05/04/23 06:00 Total Bilirubin 0.5 mg/dl (0.2-1.0) 04/30/23 18:24 AST 20 U/L (13-39) 04/30/23 18:24 ALT 52 U/L (7-52) 04/30/23 18:24 Alkaline Phosphatase 91 U/L (34-104) 04/30/23 18:24 C-Reactive Protein < 0.50 mg/dl (0-0.5) 04/30/23 18:24 Total Protein 7.4 gm/dl (6.0-8.3) 04/30/23 18:24 Albumin 4.0 gm/dl (3.4-5.0) 04/30/23 18:24 Globulin 3.4 gm/dl (2.5-4.0) 04/30/23 18:24 Albumin/Globulin Ratio 1.2 (0.9-2) 04/30/23 18:24 Vitamin B12 266 pg/ml (180-914) 05/04/23 06:00 Folate 9.88 ng/ml (>5.38) 05/04/23 06:00 Procalcitonin < 0.05 ng/ml (0-0.5) 04/30/23 18:08 Urine Color Yellow 05/04/23 10:05 Urine Appearance Clear (Clear) 05/04/23 10:05 Urine pH 5.5 (4.5-7.5) 05/04/23 10:05 Ur Specific [place] 1.021 (1.000-1.030) 05/04/23 10:05 Urine Protein Negative (Negative) 05/04/23 10:05 Urine Glucose (UA) Negative (Negative) 05/04/23 10:05 Urine Ketones 1+ (Negative) H 05/04/23 10:05 Urine Blood Negative (Negative) 05/04/23 10:05 Urine Nitrite Negative (Negative) 05/04/23 10:05 Urine Bilirubin Negative (Negative) 05/04/23 10:05 Urine Urobilinogen Negative (Negative) 05/04/23 10:05 Ur Leukocyte Esterase Negative (Negative) 05/04/23 10:05 Random Vancomycin 19.4 mcg/ml (10-20) 05/02/23 07:50 Impressions Foot X-Ray 04/30/23 17:58 XR foot LT min 3V routine CLINICAL HISTORY: 5th digit necrosis COMPARISON: Left foot radiographs April 06, 2023. FINDINGS: Alignment of the left foot is anatomic. Tarsometatarsal joints are intact. Marked soft tissue swelling of the left fifth toe is again noted. There has been interval development of suspected erosion of the medial distal aspect of the proximal phalanx of the left fifth toe. There are also possible erosions of the middle and distal phalanges of the left fifth toe. No acute fractures are identified. IMPRESSION: Redemonstration of marked soft tissue swelling of the left fifth toe. Suspected interval development of erosions of the left fifth proximal, middle and distal phalanges, as described above. The findings are suspicious for acute osteomyelitis. MRI could be obtained as indicated. ACT 112: Negative or not required by law. Electronically signed by: Cuate You M.D. 04/30/2023 6:[address] 04/30/23 20:40 Exam(s): CT LEFT FOOT Without Contrast EXAM: CT Left Lower Extremity Without Intravenous Contrast, Foot CLINICAL HISTORY: Reason for exam: osteomyelitis. TECHNIQUE: Axial computed tomography images of the left foot without intravenous contrast. CTDI is 24.91 mGy and DLP is 515.44 mGy-cm. Automated exposure control was utilized for the study. A dose lowering technique was utilized adhering to the principles of ALARA. COMPARISON: No relevant prior studies available. FINDINGS/IMPRESSION: Ulcer along the plantar, lateral aspect of the fifth metatarsal. Focal osteopenia in the fifth metatarsal head, concerning for early osteomyelitis. This should be confirmed with MRI. Severe soft tissue skin thickening and phlegmonous change in the fifth toe, consistent with infection. No fluid collection or abscess. Electronically signed by: Alexandre Murillo MD 04/30/23 22:50 PM Foot MRI 05/01/23 07:05 MR foot LT w/o con HISTORY: Left fifth toe wound. Assess for osteomyelitis. c/f 5th digit osteomyelitis TECHNIQUE: Multiplanar multisequence MRI of the left forefoot was performed without contrast according to standard departmental protocol. COMPARISON STUDY: Left foot CT 05/01/2023. FINDINGS: Soft tissue edema within the dorsum of the forefoot most pronounced laterally. There is also soft tissue edema throughout the left fifth toe. No acute fracture or dislocation within the forefoot. The Lisfranc joint is intact. The flexor and extensor tendons are normal and course, caliber, and signal intensity. There is abnormal marrow signal within the distal phalanx of the fifth toe. No abnormal marrow signal within the proximal or middle phalanx of the fifth toe. Cortical irregularity at the distal phalanx of the fifth toe. IMPRESSION: Abnormal marrow signal and mild cortical irregularity at the distal phalanx of the left fifth toe. This is concerning for an osteomyelitis. ACT 112: Negative or not required by law. Electronically signed by: Abhishek Ohara M.D. 05/01/2023 2:55 PM Renal Ultrasound 05/03/23 21:45 Exam(s): US RENAL EXAM: US Retroperitoneal Limited, Renal CLINICAL HISTORY: Reason for exam: rentention obstruction. TECHNIQUE: Real-time limited ultrasound of the retroperitoneum with image documentation. COMPARISON: None. FINDINGS: Right kidney: Right kidney measures 11.1 cm in long axis. No stones. No hydronephrosis. Left kidney: Left kidney measures 9.6 cm in long axis. No stones. No hydronephrosis. Bladder: Urinary bladder is distended with approximately volume 1253 mL. Other findings: Hepatic steatosis. IMPRESSION: 1. Urinary bladder is distended with approximately volume 1253 mL. This is compatible with reported history of urinary retention. No hydronephrosis. Recommend clinical correlation. 2. Hepatic steatosis. Electronically signed by: Amor Quinn MD 05/03/23 23:43 PM Pending Results Patient Have Any Pending Studies at Discharge: No Discharge Instructions Given to Patient (Per Discharging Provider) Daily wound dressing. Area can get wet but do not soak. Weightbearing as tolerated PLEASE CALL YOUR PRIMARY CARE PHYSICIAN OR RETURN TO THE ER IF WITH WORSENING OF SYMPTOMS, INCLUDING Fevers or chills, worsening foot redness, swelling, tenderness, bleeding or discharge, pain, Abdominal Pain, problems with urination, etc. FOLLOW UP WITH PRIMARY CARE PHYSICIAN OUTLINED ABOVE. FOLLOW-UP WITH DR. PALM IN 1 WEEK. Take care. Total Time Total Time Spent Total Time Spent (In Minutes): >30 minutes
--- NOTE | 2023-05-18 14:16 | Coding Query ---
To promote full compliance with coding requirements relating to patient care, provider participation is requested in all cases of solar process engineer uncertainty. Please assist us with the question(s) below: Coding Question(s): The diagnosis below was documented in the body of the Operative Report on 05/02/23, then subsequently fell off all further documentation. Please indicate if it is still a possible diagnosis or ruled out. Physician's Response(s): DIABETIC (documented only in the body of the 05/02 Operative Report) ( ) Diagnosed and POA ( ) Diagnosed and not POA ( ) Ruled out ( ) Other (please specify) MTDD
== END 2023-05-10 16:42 | disposition home or self-care (01) | DRG 504 ==
LOC: ED 17:44 → 3E 23:32 → SUATTDRO 23:32 → 3E 05-01 00:38

== ENCOUNTER 2023-12-07 22:46 | Inpatient (IN) ==
[2023-12-07 23:35] LABS: Appearance Urine Clear (Clear); Bilirubin Urine Negative (Negative); Blood Urine Negative (Negative); Color Urine Yellow; Glucose Urine UA Negative (Negative); Ketones Urine Trace (Negative); Leukocyte Esterase Urine Negative (Negative); Nitrite Urine Negative (Negative); Protein Urine Negative (Negative); Specific Gravity Urine 1.026 (1.000-1.030); Urobilinogen Urine Negative (Negative)
[2023-12-07 23:38] LABS: Basophils # (auto) 0.05 K/uL (0.00-0.20); Basophils % (auto) 0.6 %; Eosinophils % (auto) 1.1 %; Hematocrit (blood only) 40.4 % (42.0-52.0); Hemoglobin 13.2 g/dl (14.0-18.0); Immature Granulocytes # (auto) 0.02 K/uL (0.01-0.20); Immature Granulocytes % (auto) 0.2 %; Lymphocytes # (auto) 2.25 K/uL (1.20-3.40); Lymphocytes % (auto) 25.5 %; Mean Corpuscular Hgb Conc 32.7 g/dL (32.0-36.0); Mean Corpuscular Volume 85.6 fL (80.0-100.0); Mean Platelet Volume 10.5 fL (9.4-12.4); Monocytes % (auto) 9.1 %; Neutrophils # (auto) 5.61 K/uL (1.40-6.50); Neutrophils % (auto) 63.5 %; Platelet Count 401 K/uL (130-400); RDW Standard Deviation 46.7 fL (36.4-46.3); Red Blood Count 4.72 M/uL (4.70-6.10); White Blood Count 8.83 K/ul (4.8-10.8)
--- NOTE | 2023-12-08 00:13 | Emergency Department Note ---
History of Present Illness General Chief complaint: Mental Health Evaluation Stated complaint: MHE - SUICIDAL Time Seen by Provider: 12/07/23 23:59 Source: patient, RN notes reviewed and old records reviewed (05/20/24-discharge summary for the patient was hospitalized for osteomyelitis) Mode of arrival: ambulatory Limitations: no limitations History of Present Illness This patient is 28-year-old male, who goes by Alysas, comes in after having suicidal ideations. He had thought about taking pills but did not. He said that he had a suicidal attempt in March and he thought about how it affected people so he stopped he came here instead. He had no fever or any ongoing physical complaints with discussion of chronic pain that he has. He has had some difficulty sleeping. He feels he does need to come back into the hospital Home Medications Medication Instructions Recorded Confirmed Type estradiol 2 mg tablet 4 mg PO BID 04/30/23 12/08/23 History omeprazole 40 mg capsule,delayed 40 mg PO QAM 04/30/23 12/07/23 History release spironolactone 50 mg tablet 100 mg PO BID 04/30/23 12/08/23 History acetaminophen 325 mg tablet 650 mg (2 x 325 mg) PO Q4H PRN 05/10/23 12/07/23 Rx fever or pain #20 tabs cetirizine 10 mg tablet (Zyrtec) 10 mg PO DAILY PRN Allergy Symptoms 12/07/23 12/08/23 History modafinil 100 mg tablet 100 mg PO DAILY 12/07/23 12/08/23 History progesterone micronized 100 mg 100 mg PO QPM 12/07/23 12/08/23 History capsule Allergies Allergy/AdvReac Type Severity Reaction Status Date / Time azithromycin [From Zithromax] Allergy Intermediate Rash Verified 04/30/23 22:18 NSAIDS (Non-Steroidal Allergy Gastrointestinal Verified 12/08/23 00:03 Anti-Inflamma Upset Past Med/Surg History Problem List (Updated 12/08/23 @ 00:13 by Brando Gimenez MD) Lab test negative for COVID-19 virus (Acute) Depression (Acute) Suicidal ideations (Acute) Suture of skin wound Urinary retention Osteomyelitis (Acute) Infection of left foot (Acute) Rhinovirus infection Sore throat Gender dysphoria (Acute) Trauma and stressor-related disorder Wound of left foot Schizoaffective disorder, bipolar type Sciatic leg pain Rheumatoid arthritis seronegative Medical History Dysphonia Depression, unspecified Suicide attempt Aspiration pneumonitis due to regurgitated gastric secretions Aspiration of gastric contents into respiratory tract Aspiration of gastric contents into larynx Bloody emesis Hypotension Suicide Alcohol intoxication Respiratory failure Overdose by ingestion Acute blood loss anemia Esophagitis due to drug Anemia Encounter for pre-operative examination Vermiculation Suicidal ideations Surgical History No significant past surgical history Family History Other Back pain Social History Smoking Status: Never smoker Second Hand Exposure: No; Do You Dip or Chew Tobacco: No; Hx Alcohol Use: Yes Alcohol type: wine Hx Substance Use: No Preferred Language: Albanian Communication Ability: Effective Communication Ability Comment: unable to assess currently intubated Meter Readers Supervisor Required: No Beliefs That Will Affect Care: None marital status: Single Current Living Situation: Alone and Other Current Living Situation Comment: student current occupational status: student Feels Safe at Home: Yes Gender Identity: Transgender Female Assistive Devices: Cane and Special Shoe Review of Systems A total of 10 systems reviewed and were otherwise negative Physical Exam Vital Signs Vital Signs - 24 hr 12/07/23 22:51 Temperature 37 C Temperature Source Temporal Artery Scan Pulse Rate 74 Respiratory Rate 20 Blood Pressure 141/82 H Blood Pressure Mean 101 Pulse Oximetry 99 Oxygen Delivery Method Room Air Sepsis Recent Fever Within 48 Hours No Sepsis New/Unexplained Change in Mental Status No Sepsis Action Taken by Nursing No Action Required General: Well developed well nourished [place] young male who in no acute distress, breathing comfortably on room air. Normal speech HEENT: Normal cephalic atraumatic. Pupils are equal round and reactive to light. Extraocular movements are intact. Oropharynx is pink with moist mucous membranes. No swelling of the mouth lips or tongue. Neck: Supple with a midline trachea. No meningeal signs or stiffness, no JVD or bruits. No Stridor. Chest: Clear to auscultation bilaterally. No wheezes or rhonchi. No increased work of breathing. Heart: Regular rate and rhythm without murmurs or gallops. Abdomen: Soft nontender, nondistended without rebound guarding or rigidity. Extremities: No cyanosis clubbing or edema. No calf tenderness or assymetry Spine/Back. Non tender to palpation. No CVA tenderness Skin: Good turgor without rashes. Neurologic exam: Cranial nerves two through 12 are intact. Motor and sensation are intact and symmetrical throughout. Psych: Normal affect and thought process he does admit to having suicidal ideations. Medical Decision Making Differential Diagnosis Depression, anxiety, suicidal ideations, toxicologic, metabolic, infectious Medical Records Attestation: I reviewed the patient's medical records. Home Medications Current Medication List: was personally reviewed by me Laboratory Data Attestation: I reviewed the patient's lab results. 12/07/23 23:21 12/08/23 00:23 Lab Results 12/07/23 12/07/23 12/07/23 Range/Units 09:14 23:06 23:08 WBC (4.8-10.8) K/ul RBC (4.70-6.10) M/uL Hgb (14.0-18.0) g/dl Hct (42.0-52.0) % MCV (80.0-100.0) fL MCH (25.0-34.0) pg MCHC (32.0-36.0) g/dL RDW Std Deviation (36.4-46.3) fL RDW Coeff of Erne (11.5-14.5) % Plt Count (130-400) K/uL MPV (9.4-12.4) fL Immature Gran % (Auto) % Neut % (Auto) % Lymph % (Auto) % Reeves % (Auto) % Eos % (Auto) % Baso % (Auto) % Neut # (Auto) (1.40-6.50) K/uL Lymph # (Auto) (1.20-3.40) K/uL Reeves # (Auto) (0.11-0.59) K/uL Eos # (Auto) (0.00-0.50) K/uL Baso # (Auto) (0.00-0.20) K/uL Immature Gran # (Auto) (0.01-0.20) K/uL Sodium Potassium Chloride Carbon Dioxide Anion Gap BUN Creatinine Est Cr Clr Drug Dosing Est GFR ( Amer) Est GFR (Non-Af Amer) BUN/Creatinine Ratio Glucose Calcium Total Bilirubin AST ALT Alkaline Phosphatase Total Protein Albumin Globulin Albumin/Globulin Ratio TSH Urine Color Yellow Urine Appearance Clear (Clear) Urine pH 6.0 (4.5-7.5) Ur Specific [place] 1.026 (1.000-1.030) Urine Protein Negative (Negative) Urine Glucose (UA) Negative (Negative) Urine Ketones Trace H (Negative) Urine Blood Negative (Negative) Urine Nitrite Negative (Negative) Urine Bilirubin Negative (Negative) Urine Urobilinogen Negative (Negative) Ur Leukocyte Esterase Negative (Negative) Salicylates (3.0-30) mg/dl Urine Opiates Screen Neg (Neg) Ur Methadone, Qual Neg (Neg) Urine Fentanyl Screen Neg (Neg) Acetaminophen (10-30) ug/ml Urine Barbiturates Neg (Neg) Ur Phencyclidine (PCP) Neg (Neg) U Amphetamin/Meth Scrn Neg (Neg) MDMA (Ecstasy) Screen Neg (Neg) U Benzodiazepines Scrn Neg (Neg) Ur Cocaine Metabolite Neg (Neg) U Marijuana (THC) Screen Pos H (Neg) Ethyl Alcohol mg/dL SARS-CoV-2, RNA, NAAT NEGATIVE (NEGATIVE) 12/07/23 12/08/23 Range/Units 23:21 00:23 WBC 8.83 (4.8-10.8) K/ul RBC 4.72 (4.70-6.10) M/uL Hgb 13.2 L (14.0-18.0) g/dl Hct 40.4 L (42.0-52.0) % MCV 85.6 (80.0-100.0) fL MCH 28.0 (25.0-34.0) pg MCHC 32.7 (32.0-36.0) g/dL RDW Std Deviation 46.7 H (36.4-46.3) fL RDW Coeff of Rene 15.0 H (11.5-14.5) % Plt Count 401 H (130-400) K/uL MPV 10.5 (9.4-12.4) fL Immature Gran % (Auto) 0.2 % Neut % (Auto) 63.5 % Lymph % (Auto) 25.5 % Reeves % (Auto) 9.1 % Eos % (Auto) 1.1 % Baso % (Auto) 0.6 % Neut # (Auto) 5.61 (1.40-6.50) K/uL Lymph # (Auto) 2.25 (1.20-3.40) K/uL Reeves # (Auto) 0.80 H (0.11-0.59) K/uL Eos # (Auto) 0.10 (0.00-0.50) K/uL Baso # (Auto) 0.05 (0.00-0.20) K/uL Immature Gran # (Auto) 0.02 (0.01-0.20) K/uL Sodium Cancelled 139 Potassium Cancelled 3.8 Chloride Cancelled 108 H Carbon Dioxide Cancelled 24 Anion Gap Cancelled 7 BUN Cancelled 15 Creatinine Cancelled 0.86 Est Cr Clr Drug Dosing Cancelled 195.7 Est GFR ( Amer) Cancelled 138.7 Est GFR (Non-Af Amer) Cancelled 119.7 BUN/Creatinine Ratio Cancelled 17.4 Glucose Cancelled 83 Calcium Cancelled 8.9 Total Bilirubin Cancelled 0.5 AST Cancelled 14 ALT Cancelled 11 Alkaline Phosphatase Cancelled 72 Total Protein Cancelled 7.1 Albumin Cancelled 4.0 Globulin Cancelled 3.1 Albumin/Globulin Ratio Cancelled 1.3 TSH Cancelled 1.863 Urine Color Urine Appearance (Clear) Urine pH (4.5-7.5) Ur Specific [place] (1.000-1.030) Urine Protein (Negative) Urine Glucose (UA) (Negative) Urine Ketones (Negative) Urine Blood (Negative) Urine Nitrite (Negative) Urine Bilirubin (Negative) Urine Urobilinogen (Negative) Ur Leukocyte Esterase (Negative) Salicylates < 3.0 L (3.0-30) mg/dl Urine Opiates Screen (Neg) Ur Methadone, Qual (Neg) Urine Fentanyl Screen (Neg) Acetaminophen < 3 L (10-30) ug/ml Urine Barbiturates (Neg) Ur Phencyclidine (PCP) (Neg) U Amphetamin/Meth Scrn (Neg) MDMA (Ecstasy) Screen (Neg) U Benzodiazepines Scrn (Neg) Ur Cocaine Metabolite (Neg) U Marijuana (THC) Screen (Neg) Ethyl Alcohol mg/dL Cancelled < 10.0 SARS-CoV-2, RNA, NAAT (NEGATIVE) MDM Narrative This patient comes in as described above. He was placed in room A8. He has been having suicidal ideations he tells me his multiple stressors. Blood work is obtained for medical clearance the patient has been suicidal. No attempt tonight according to the patient. COVID testing was negative. He has nothing to suggest infection. There is no significant electrolyte or metabolic abnormalities. Toxicologic testing was negative and unremarkable exception of positive THC. The patient was medically cleared and was referred to [facility] came and saw the patient in the emergency department. They are going to admit the patient for further inpatient treatment and evaluation from mental health standpoint. Impression & Plan Suicidal ideations, Gender dysphoria, Depression, Lab test negative for COVID- 19 virus Discharge Plan Visit Data Chief Complaint: Mental Health Evaluation Stated Complaint: MHE - SUICIDAL ED Provider: Brando Gimenez Discharge Problem: Suicidal ideations, Gender dysphoria, Depression, Lab test negative for COVID- 19 virus Forms Stand Alone Forms: [facility] [employer], Suicide Prevention Resources Prescriptions Prescriptions: No Action omeprazole 40 mg capsule,delayed release(DR/EC) 40 mg PO QAM estradiol 2 mg tablet 4 mg PO BID spironolactone 50 mg tablet 100 mg PO BID acetaminophen 325 mg Tablet 650 mg PO Q4H PRN (Reason: fever or pain) Qty: 20 0RF Rx Instructions: Do not take more than 3000 mg of Tylenol per day cetirizine [Zyrtec] 10 mg Tablet 10 mg PO DAILY PRN (Reason: Allergy Symptoms) progesterone micronized 100 mg capsule 100 mg PO QPM modafinil 100 mg tablet 100 mg PO DAILY Referrals Referrals: Renata Waters MD [Primary Care Provider] - Discharge Problem: Depression Qualifiers: Depression Type: unspecified Qualified Code(s): F32.A - Depression, unspecified
[2023-12-08 00:14] LABS: Amphetamines+Metham, Urine Neg (Neg); Barbiturates, Urine Neg (Neg); Benzodiazepine, Urine Neg (Neg); Cocaine, Urine Neg (Neg); Fentanyl, Urine Neg (Neg); MDMA (Ecstacy), Urine Neg (Neg); Marijuana, Urine Pos (Neg); Methadone, Urine Neg (Neg); Opiate, Urine Neg (Neg); Phencyclidine, Urine Neg (Neg)
[2023-12-08 00:54] LABS: Albumin Globulin Ratio 1.3 (0.9-2); BUN Creatinine Ratio 17.4 (10-20); Bilirubin,Total 0.5 mg/dl (0.2-1.0); Calcium 8.9 mg/dl (8.6-10.3); Creatinine Clr Calc Pharmacy 195.7 ml/min; Est GFR (African American) 138.7 ml/min; Est GFR (Non-African American) 119.7 ml/min; Globulin 3.1 gm/dl (2.5-4.0); Potassium 3.8 mmol/L (3.5-5.1); Total Protein 7.1 gm/dl (6.0-8.3)
[2023-12-08 00:59] LABS: Acetaminophen < 3 ug/ml (10-30); Salicylate < 3.0 mg/dl (3.0-30)
[2023-12-08 01:08] LABS: Thyroid Stimulating Hormone 1.863 uIu/ml (0.300-4.500)
[2023-12-08] MEDS ORDERED: SODIUM CHLORIDE 0.65% NA SOLN 45 ML (OCEAN) PRN (04:20)
[2023-12-08] MEDS ORDERED: ALUMINUM/MAGNESIUM SUSP 30 ML UDC PO PRN (04:20)
[2023-12-08] MEDS ORDERED: MAGNESIUM HYDROXIDE SUSP 30 ML UDC PO PRN (04:20)
--- OUTSIDE RECORDS SUMMARY | 2023-12-08 08:23 | External Medical Summary | Summary of Care ---
Author Name Unknown Organization [facility] Address [address] [place] [address] Phone [phone] Care Team Providers Care Cage/Vault Supervisor Name Role Phone Renata Waters MD Primary Care Provider [phone] Reason for Visit * Reason Onset Date Comments Precert Approved 06/22/2023 FLBC/PRIME Aydini ra Encounter Details Date Type Department Care Team (Late st Contact Info) Description 06/22/2023 Telephone Rheumatology [address] [id number] [place] [address] Brando Degroot MD [facility] [place] [address] Precert Approved (FLJACK/PRIME Aydinira) Allergies Active Allergy Reactions Criticality Noted Date Comments Azithromycin 02/07/2021 rash documented as of this encounter (statuses as of 07/26/2023) Medications Medication Sig Dispensed Refills Start Date End Date Status Cetirizine HCl 10 MG Oral Tablet Take 1 Tablet by mouth in the morning. 0 02/07/2021 Active Gabapentin 100 MG Oral Capsule (Neurontin) Take 4 Capsules by mouth in the morning and 4 Capsules in the evening. 0 Active Felton-3 1000 MG Oral Capsule Take 2 Capsules by mouth in the morning and 2 Capsules before bedtime. 2 caps three times daily. 0 Active Estradiol 2 MG Oral Tablet Take [...] 1 Tablet before bedtime. 0 04/16/2023 Active lamoTRIgine 100 MG Oral Tablet (LaMICtal)Indication s:in pm Take 1 Tablet by mouth at bedtime. 90 Tablet 0 2023 Active Vitamin B12 1000 MCG Oral Tablet Extended Release Take 1,000 mcg by mouth every evening. 0 2023 Active Multi-Vitamins Oral Tablet Take 1 Tablet by mouth in the morning. 0 2023 Active Omeprazole 40 MG Oral Capsule Delayed Release (PriLOSEC)Indication s:Gastroesophageal reflux disease with esophagitis and hemorrhage take 1 capsule by mouth every morning 90 Capsule 3 06/11/2023 Active documented as of this encounter (statuses as of 07/26/2023) Active Problems Problem Noted Date Diagnosed Date Encounter for therapeutic drug monitoring 2021 Schizophrenia 04/29/2021 BMI 38.0-38.9,adult 02/07/2021 Obstructive sleep apnea, adult 09/27/2017 RONI (generalized anxiety disorder) 05/22/2015 Rheumatoid arthritis of [facility] sites with negative rheumatoid factor Gastroesophageal reflux disease without esophagi tis Allergic sinusitis documented as of this encounter (statuses as of 07/26/2023) Resolved Problems Problem Noted Date Diagnosed Date Resolved Date BMI 40.0-44.9, adult 11/30/2022 023 documented as of this encounter (statuses as of 07/26/2023) Immunizations Name Administration Dates Next Due COVID-19 mRNA, LNP-s, No Pre serve, 2-Dose Series (Shopseen) 01/22/2021,08/05/2020,07/22/2020 Seasonal Influenza Virus Vac cine, Unspecified Formulation 02/07/2021 Seasonal Influenza, PF, 6 M & above, IM , (FluLaval or Fluzone) 01/20/2023,02/07/2021 TDAP (age 10 and older)(Boostrix) 01/20/2023 documented [...] Information Value Date Recorded Sex Assigned at Male 05/10/2023 12:31 PM EST Gender Identity Transgender Female 05/10/2023 12 :31 PM EST Sexual Orientation Something else 05/10/2023 12 :31 PM EST Sexual Orientation Choose not to disclose 2022 12:31 PM EST Job Start Date Occupation Industry Not on file Not on file Not on file documented as of this encounter Miscellaneous Notes * Telephone Encounter - Stella Cantu LPN - 07/26/2023 11:41 AM EST Message not read, letter sent * Telephone Encounter - Stella Cantu LPN - 07/02/2023 8:56 AM EST Humira Pen 40 MG/0.4ML Subcutaneous Pen-injector Kit How Prescribed(directions/sig): Inject 0.4 mL under the skin every 14 days. - Subcutaneous Day Supply: 0.8 ML PER 28 DAYS (2 PENS PER 28 DAYS) Valid auth start date: 07/10/2023 Valid auth end date: 07/10/2024 (Auth from last year is still valid until 07/09/22) Rx Insurance Info: [place] Reference #: [id number] [facility] Humira is not on pts med list, pt message sent * Telephone Encounter - Frida Cantu LPN - 06/22/2023 2:08 PM EST Please prior auth Humira per [facility] Tello: [email or web address] Thank you! documented in this encounter Plan of Treatment Health Maintenance Due Date Last Done Comments Depression Screening 2009 GARDASIL-HPV IMMUNIZATION SERIES (1 - 3-dose series) 2012 HIV Screening 2012 Hepatitis B (1 of 3 - 19+ 3-dose series) 2016 Pap Smear 2018 COVID-19 Vaccine (4 - 2022-2 4 season) 2023 01/22/2021, 08/05/2020, 07/22/2020 DTaP,Tdap,and Td Vaccines (2 - Td or Tdap) 01/20/2033 01/20/2023 Influenza Vaccine (FLU shot) Completed , 02/07/2021, 02/07/2021 MENINGOCOCCAL (MENACTRA/MENVEO) Aged Out No longer eligible b ased on patient's age to complete this topic Pneumococcal Vaccine: Pediatrics (0 to 5 Years) and At-Risk Patients (6 to 64 Years) Aged Out No longer eligible b ased on patient's age to complete this topic documented as of this encounter Medical Devices Not on filedocumented as of this encounter Care Teams Cage/Vault Supervisor Relationship Specialty Start Date End Date Renata Waters MD [address] [place] [address] PCP - General Internal Medicine 05/10/21 documented as of this encounter
--- OUTSIDE RECORDS SUMMARY | 2023-12-08 08:23 | External Medical Summary | Summary of Care ---
Author Name Unknown Organization [facility] Address [address] [place] [address] Phone [phone] Care Team Providers Care Process Lead Name Role Phone Renata Waters MD Primary Care Provider [phone] Reason for Visit * Ancillary Services (Within 10 days (routine)) - Authorized Specialty Diagnoses / Procedures Referred By Delia amaya Referred To Contact Audiology Diagnoses Subjective hearing change Vince Ingram DO [address] [place] [address] Referral ID Status Reason Start Date Expiration Date Visits Requested Visits Authorized [id number] Authorized Ancillary Services Required 11/05/2023 [id number] Encounter Details Date Type Department Care Team (Late st Contact Info) Description 11/09/2023 11:00 AM EDT [facility] [address] [place] [place] [id number] Braulio Stiles Au.D. [address] [place] [address] Abnormal auditory perception, unspecified laterality* Allergies Active Allergy Reactions Criticality Noted Date Comments Azithromycin 02/07/2021 rash documented as of this encounter (statuses as of 11/09/2023) Medications Medication Sig Dispensed Refills Start Date End Date Status Cetirizine HCl 10 MG Oral Tablet Take 1 Tablet by mouth in the morning. 02/07/2021 Active Estradiol 2 MG Oral Tablet Take 2 Tablets by mouth in the morning and 2 Tablets before bedtime. 04/14/2023 Active Finasteride 5 MG Oral Tablet (Proscar) Take 1 Tablet by mouth in the morning. 04/16/2023 Active risperiDONE 0.5 MG Oral Tablet (RisperDAL) Take 0.5 Tablets by mouth in the morning and 0.5 Tablets before bedtime. 04/14/2023 Active Spironolactone 50 MG Oral Tablet (Aldactone) Take 1 Tablet by mouth in the morning and 1 Tablet before bedtime. 04/16/2023 Active Multi-Vitamins Oral Tablet Take 1 Tablet by mouth in the morning. 2023 Active Omeprazole 40 MG Oral Capsule Delayed Release (PriLOSEC)Indications :Gastroesophageal reflux disease with esophagitis and hemorrhage take 1 capsule by mouth every morning 90 Capsule 3 06/11/2023 Active Modafinil 100 MG Oral Tablet (Provigil) Take 0.5 Tablets by mouth in the morning. 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 Allergic sinusitis documented as of this encounter (statuses as of 11/09/2023) Resolved Problems Problem Noted Date Diagnosed Date Resolved Date BMI 40.0-44.9, adult 11/30/2022 023 documented as of this encounter (statuses as of 11/09/2023) Immunizations Name Administration Dates Next Due COVID-19 mRNA, LNP-s, No Pre serve, 2-Dose Series ([employer]) 01/22/2021,08/05/2020,07/22/2020 Seasonal Influenza Virus Vac cine, Unspecified Formulation 02/07/2021 Seasonal Influenza, PF, 6 M & above, IM , (FluLaval or Fluzone) 01/20/2023,02/07/2021 TDAP (age 10 and older)(Boostrix) 01/20/2023 documented as of this encounter Social History Tobacco Use Types Packs/Day Years Used Date Smoking Tobacco: Some Days Cigarettes 0.1 1 Smokeless Tobacco: Never Comments:only 1 cigarette wh en I have panic attacks, no more than 2 or 3 times a month Alcohol Use Standard Drinks/Week Comments Not Currently 1 (1 standard drink = 0.6 oz pur e alcohol) AUDIT-C Answer Date Recorded Q1: How often do you have a drink containing alc ohol? Never 02/07/2021 Average Number of Drinks Not on file 021 Frequency of Binge Drinking Not on file 01/22 Utilities Answer Date Recorded Do you have trouble paying y our heating, water, or electric bill? (Adult - for ages 18 years and over) Not on file 11/09/2023 Is your family able to pay t he heat, water, or electric bill? (Household - for ages 0-17 years) Not on file 11/09/2023 Does your family have access to good internet? (Household - for ages 0-17 years) Not on file 11/09/2023 Social Connections Answer Date Recorded How often do you feel lonely or isolated from those around you? (Adult - for ages 18 years and over) Not on file 11/09/2023 Sex and Gender Information Value Date Recorded [...] as of this encounter Progress Notes * Braulio Stiles Au.D. - 11/09/2023 11:57 AM EDT Images from the original note were not included. Name: Jose Mckeon Age: [age] year old : 1995 DOS: 11/09/2023 PCP: Renata Waters MD Referring Provider: Reason: Audiologic Evaluation Jose was seen for an audiologic evaluation with a primary complaint of assessing hearing functioning due to perceived change in hearing and/or speech understanding abilities and difficulties with auditory processing voices. They prefer the name Alyssa. . Audiologic/Otologic History Hearing loss: No, They (Alyssa) report some difficulties with speech understanding in both ears. Tinnitus: They experience an intermittent high-pitched ringing in the right ear worse than the leftear. Tinnitus is worse when listening to music. Aural pressure/otalgia: No Disequilibrium/Vertigo: No Ear infections: They noted constant ear infections up until age 9 and had at least 3 sets of PE tubes. 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 Familial Hearing Loss: Father has hearing loss. [place]/Vestibulotoxic medication: No Head Injury: They noted having around 5 concussions before the age of 18. Symptoms were headaches and dizziness. No extended hospital stays were noted. Ear/Head surgery: No Speech: They had a speech delay and started to talk at 4-5 y/o after having speech therapy. Jose (Alyssa) does not currently wear hearing aids Procedures and Results Otoscopy: Accumulated non-occluding cerumen is noted in the right ear which obstructs complete viewof the TM. Ear canal is free of occluding cerumen for audiologic testing in the left ear. IMMITANCE TESTING Tympanometry [id number] See scanned results Right: WNL for static admittance, tympanometric peak pressure, equivalent volume, and tympanic width("Type A") Left: WNL for static admittance, tympanometric peak pressure, equivalent volume, and tympanic width("Type A") AUDIOMETRIC TESTING Standard comprehensive audiometry [id number], Transducer: supra-aural earphones, Test Reliability: Good Right: Hearing thresholds are within normal limits Left: Hearing thresholds are within normal limits Speech recognition thresholds were consistent with hearing thresholds Word recognition scores, obtained via recorded material were: right 100%, left 100% IMPRESSION Test results were reviewed today with the patient Normal peripheral hearing sensitivity and word recognition bilaterally. Word discrimination abilities are considered to be excellent in the right ear and excellent in the left ear. Tympanograms indicate normal tympanic membrane mobility and ear canal volume in the right ear and normal tympanic membrane mobility and ear canal volume in the left ear Tinnitus: Possible tinnitus exacerbation factors include: stress, fatigue/ sleep habits, caffeine and/or alcohol consumption, nicotine, quiet and loud noises. Tinnitus may also be a side-effect of medications.I recommend staying in a sound-enriched environment such as background music, TV, fan noise or white noise machine on. This can help the brain focus on an external sound source and may help to reduce the perceived tinnitus. PLAN/RECOMMENDATIONS: Due to normal hearing sensitivity bilaterally and noted difficulties with verbal directions, we discussed getting a referral for an auditory processing evaluation Contact the clinic if there are any sudden changes to hearing Continue to monitor hearing sensitivity, contact the clinic to return for updated audiometric testing should there be any perceived change in hearing Felton Gandara,CCC-A [employer]eder 11/09/2023 Scan: audiogram, tympanograms cc: Renata Waters MD documented in this encounter Plan of Treatment Upcoming Encounters Date Type Department Care Team (Late st Contact Info) Description 02/11/2024 10:00 AM EDT Office Visit Neurology [facility] [address] [place] [address] [place] [address] Megan Pino CRNP [address] [place] [address] Health Maintenance Due Date Last Done Comments Pneumococcal Vaccine: Pediatrics (0 to 5 Years) and At-Risk Patients (6 to 64 Years) (1 of 2 - PCV) 2003 Depression Screening 2009 GARDASIL-HPV IMMUNIZATION SERIES (1 [...] Procedure Name Priority Date/Time Associated Diagnosis Comments AUDIOMETRIC RESULT 11/09/2023 documented in this encounter Results * AUDIOMETRIC RESULT (11/09/2023) 11/09/2023 Braulio [facility] documented in this encounter Visit Diagnoses Diagnosis Abnormal auditory perception, unspecified laterality- Primary documented in this encounter Care Teams Process Lead Relationship Specialty Start Date End Date Renata Waters MD [address] [facility] [place] [address] PCP - General Internal Medicine 05/10/21 documented as of this encounter
--- OUTSIDE RECORDS SUMMARY | 2023-12-08 08:23 | External Medical Summary | Summary of Care ---
Author Name Unknown Organization [facility] Address [address] [place] [address] Phone [phone] Care Team Providers Care Top Installer Name Role Phone Renata Waters MD Primary Care Provider [phone] Reason for Referral * Evaluate & Treat - Unlimited Visits (Within 10 days (routine)) - Pending Review Specialty Diagnoses / Procedures Referred By Delia amaya Referred To Contact Sleep Medicine / Sleep Disorders Diagnoses Obstructive sleep apnea syndrome Vince Ingram DO [address] [place] [address] Referral ID Status Reason Start Date Expiration Date Visits Requested Visits Authorized [id number] Pending Review Specialty Services Required 09/26/2023 2 2 Question Answer Referral Priority Within 10 days (routine) CAD SLEEP MED ADULT REFERRAL Sleep Apnea Testing and Management Does the patient snore and/or gasp at night or has been told they stop breathing at night? Yes Where should this appointment be scheduled? [facility] Comments Has history of ANUEL, intolerant of PAP Eval and discuss alternative tx options please * Precert (Within 10 days (routine)) - Pending Review Specialty Diagnoses / Procedures Referred By Delia amaya Referred To Contact Radiology Diagnoses Memory loss Procedures MRI BRAIN WITHOUT CONTRAST Vince Ingram DO [address] [place] [address] Referral ID Status Reason Start Date Expiration Date V isits Requested Visits Authorized [id number] Pending Review 09/25/[phone] Reason for Visit * Reason Comments NEW PATIENT Memory Problems * Evaluate & Treat - Unlimited Visits (Within 30 days (routine)) - Pending Review Specialty Diagnoses / Procedures Referred By Delia t Referred To Contact Neurology Diagnoses Memory loss Difficulty concentrating Renata Waters MD [address] [facility] [place] [address] Referral ID Status Reason Start Date Expiration Date Visits Requested Visits Authorized [id number] Pending Review Specialty Services Required 09/20/[phone] Encounter Details Date Type Department Care Team (Latest Contact Info) Description 09/24/2023 2:00 PM EDT Telemedicine Neurology [facility]at[facility] Lozano [place] [address] [facility] [place] [address] Vince Ingram, DO [address] [facility] [address] Memory loss*; Obstructive sleep apnea syndrome; Suicide attempt (HCC); Attention deficit hyperactivity disorder (ADHD), unspecified ADHD type; PTSD (post-traumatic stress disorder) Allergies Active Allergy Reactions Criticality Noted Date Comments Azithromycin 02/07/2021 rash documented as of this encounter (statuses as of 09/26/2023) Medications Medication Sig Dispensed Refills Start Date End Date Status Cetirizine HCl 10 MG Oral Tablet Take 1 Tablet by mouth in the morning. 0 02/07/2021 Active Estradiol 2 MG Oral Tablet Take 2 Tablets by mouth in the morning and 2 Tablets before bedtime. 0 04/14/2023 Active Finasteride 5 MG Oral Tablet (Proscar) Take 1 Tablet by mouth in the morning. 0 04/16/2023 Active risperiDONE 0.5 MG Oral Tablet (RisperDAL) Take 0.5 Tablets by mouth in the morning and 0.5 Tablets before bedtime. 0 04/14/2023 Active Spironolactone 50 MG Oral Tablet (Aldactone) Take 1 Tablet by mouth in the morning and 1 Tablet before bedtime. 0 04/16/2023 Active Multi-Vitamins Oral Tablet Take 1 Tablet by mouth in the morning. 0 2023 Active Omeprazole 40 MG Oral Capsule Delayed Release (PriLOSEC)Indicat ions:Gastroesopha geal reflux disease with esophagitis and hemorrhage take 1 capsule by mouth every morning 90 Capsule 3 06/11/2023 Active Modafinil 100 MG Oral Tablet (Provigil) Take 0.5 Tablets by mouth in the morning. 0 09/17/2023 Active Gabapentin 100 MG Oral Capsule (Neurontin) Take 4 Capsules by mouth in the morning and 4 Capsules in the evening. 0 09/24/2023 Discontinued (End of Procedure) [place]-3 1000 MG Oral Capsule Take 2 Capsules by mouth in the morning and 2 Capsules before bedtime. 2 caps three times daily. 0 09/24/2023 Discontinued (End of Procedure) hydrOXYzine HCl 25 MG Oral Tablet Take 2 Tablets by mouth at bedtime. 0 04/14/2023 09/24/2023 Discontinued (End of Procedure) Vitamin B12 1000 MCG Oral Tablet Extended Release Take 1,000 mcg by mouth every evening. 0 2023 09/24/2023 Discontinued (End of Procedure) lamoTRIgine 100 MG Oral Tablet (LaMICtal)Indicat ions:in pm take 1 tablet by mouth at bedtime 90 Tablet 0 08/06/2023 09/24/2023 Discontinued (End of Procedure) documented as of this encounter (statuses as of 09/26/2023) Active Problems Problem Noted Date Diagnosed Date Encounter for therapeutic drug monitoring 2021 Schizophrenia 04/29/2021 BMI 38.0-38.9,adult 02/07/2021 Obstructive sleep apnea, adult 09/27/2017 Daytime sleepiness 06/01/2016 Gastroesophageal reflux disease 05/22/2015 RONI (generalized anxiety disorder) 05/22/2015 Rheumatoid arthritis of [facility] sites with negative rheumatoid factor Allergic sinusitis documented as of this encounter (statuses as of 09/26/2023) Resolved Problems Problem Noted Date Diagnosed Date Resolved Date BMI 40.0-44.9, adult 11/30/2022 023 documented as of this encounter (statuses as of 09/26/2023) Immunizations Name Administration Dates Next Due COVID-19 mRNA, LNP-s, No Pre serve, 2-Dose Series (Synthelis) 01/22/2021,08/05/2020,07/22/2020 Seasonal Influenza Virus Vac cine, Unspecified Formulation 02/07/2021 Seasonal Influenza, PF, 6 M & above, IM , (FluLaval or Fluzone) 01/20/2023,02/07/2021 TDAP (age 10 and older)(Boostrix) 01/20/2023 documented as of this encounter Social History Tobacco Use Types Packs/Day Years Used Date Smoking Tobacco: Some Days Cigarettes 0.1 1 Smokeless Tobacco: Never Tobacco Cessation:Ready to Q uit: Not Asked; Counseling Given: Not Answered Comments:only 1 cigarette when I have panic attacks, no more than [...] as of this encounter Progress Notes * Vince Ingram, - 09/24/2023 1:59 PM EDT [facility] MEMORY AND COGNITION PROGRAM New Patient Telemedicine Evaluation Patient: Jose Mckeon Visit date: 09/24/2023 Referring Provider: Renata Waters MD Reason for referral: Issues wit memory and focusing. LOC with suicide attempt 5- 6 months ago . ? Anoxic brain injury Patient was referred to Dr. Mckay for neuropsych testing. Patient location: HOME. I was not in a hospital or clinic location. After connecting through televideo, patient was verified with two unique identifiers. Patient (or authorized legal ict sales representative) was then informed that this was a Telemedicine visit and being conducted confidentially over secure lines. Methods to assure confidentiality were taken. Patient acknowledged consent and understanding of privacy and security of the Telemedicine visit. The patient agreed to participate. HISTORY OF PRESENT ILLNESS Mr. 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 The history was obtained from chart review, outside records, CareEverywhere, and patient. They are unaccompanied. They have a history significant for obesity, severe ANUEL (Sleep Medicine in [place] on CareEverywhere,2017. Can't tolerate CPAP), seronegative rheumatoid arthritis, ADHD, and depression. They requested appointment because: I've been having issues with memory and cognitive function since my suicide attempt in March. I am struggling with focusing, memory, and general confusion. I can rarely focus on tasks, and I have trouble with remembering even simple things such as what day of the week it is. I have been and am losing memories of the past, both recent and as far back as 2 to 3 years. I also struggle to recognize people I know by looking at them, most of the time I can't recognize someone by a photo without context for example. I have been talking with my psychiatrist and he suggested I contact my pcp for a referral to a neurologist to look into the possibility of anoxic brain damage as a result of my attempt. The following is obtained from the patient: Has ADHD few months ago by psychiatrist (in [place]). Attention has been poor since a kid. Started modafinil earlier this week. They carry a dx of schizoaffective bipolar type, which they report was determined to be false. Instead they have complex PTSD and ADHD. They follow with a psychiatrist Jose Grajeda in [place] at [place]. Patient is ok with sharing records with Dr. Grajeda. Patient reports that at baseline memory is really good. Relevant previous medications: Lamotrigine (stopped 1-2 months ago) Risperdal (stopped 1-2 months ago) Atomoxetine (had side effects) Patient reported that they had a "horrible year", lots of deadts I nthe family, social and medial things Triyng to get help from providers but couldn't find care. 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 They are no longer enrolled in music program and switched to [employer]. For suicide attempt, they were hospitalized at [place]. They apparently called their mentor/professor who called EMS. They were unresponsive when discovered in their apartment. They took 1 bottle of ativan with alcohol. Might have taken gabapentin as well. They were in ICU for 10 days, on ventilator for 7 days. They reported having CT head and neck, but not MRI brain. They recalled having had MRI brain at age 13-14 y/o, unclear reason for study. Developmentally, they reported a very complicated and delivery involving emergency c-secion. They were either full term vs borderline premature. They had speech delayed, started to talk at 4-7 y/o after having speech therapy. Then excelled in reading in 2nd-4th grade. Patient thinks they w alked on their first birthday. They struggled with typing their shoes and writing has never been neat. First language was [place] (parents are [place]). They had social issues. Parents tried to get them tested for autism but he was NOT diagnosed. In [place], he had testing he met criteria for Asperger. 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 SocH: rare alcohol, 1-2x/month + social at most 1x/week. 1 cigarrette for stress reflief. No recreational or illicit drugs. Support system: No siblings. Parents are in [place]. They have 1-2 good friends Denies current SI or HI. Had neuropsych testing in [place] in 07/2023: [facility]. We do not have records but patient does and will share. Sense of time is impaired. Onset since suicide attempt in 03/2023. Memory and thinking complaints (+: difficulty present, -: normal/absent): Forgetting to eat or drink sometimes, wether he has taken a shower Forgetful of conversations? + Forgetful of names? + Misplacing things? +, chronic but worse recently Trouble following instructions (e.g. following a recipe or manual)? +, improved Uses reminders on phone. Forgets to set reminder when he thinks about making a reminder *Problem with judgement, reasoning and complex tasks? +, depends. Not when he feels stakes are highand he needs to be responsible for other people. *Trouble using common tools or appliances? - *Getting lost in familiar places? -, but mind wonders *Problem with attention and concentration? + FUNCTIONAL ASSESSMENT: From patient Comments Manny iADLs Using the Telephone intact Shopping impaired makes list, but forgets to put things on the list Chronic. Food preparation intact Housekeeping intact trouble initiating but can complete. Laundry intact Transportation intact drives a lot. Mind wanders, "[place]". No accidents. Medication management intact rare forgetting Finances intact Benito ADLs: Bathing intact Dressing intact Toileting intact Transferring (bed to chair) impaired L little toe has nerve pain c/b osteomyelitis needs amputationin 04/2024 Continence intact Feeding intact Keeping track of calendars/appointments intact But puts in significant amount of effort with setting reminder. Review of records from [facility] revealed the following: Discharge summary, 04/11-04/14/23: 03/25: Intubated, admitted to the ICU 03/31: Extubated 04/04: Seen by speech therapy. They complained of coughing for 4 months which worsened after explanation, also dysphonia. Was recommended by CONSTRUCTION PROJECT COORDINATOR for ENT consultation to rule vocal cord damage via there and got to me as an outpatient. They were s/p barium swallow, found upper GI bleed and reflux, suspicious for esophageal dysfunction. Schizoaffective disorder, bipolar type. Per Psychiatry recommendations: He was on one-to-one; continued group therapy, counseling, outpatient follow-up with Psychiatry. Appear patient was off of Trileptal, trazodone and Ativan. Lamictal was increased to 100 mg q.p.m., gabapentin from 200 mg BID to 400 mg BID, risperidone 0.25 mg twice daily. Patient was also on estradiol and finasteride and possibly spironolactone for transgender identity. Orthopedic consultation, 05/24/23: Patient identifies as a female and prefers the name Ethel Had acute metabolic encephalopathy secondary to OD with drugs and alcohol and anoxia with acute respiratory failure with hypoxia and hypercarbia, and aspiration pneumonia s/p intubation and IV antibiotics, bloody emesis s/p IV Protonix Osteomyelitis of left fifth digit s/p amputation on 05/02/23 OBJECTIVE Past Medical History: Diagnosis Date ADHD (attention deficit hyperactivity disorder) Allergic sinusitis Anxiety Bipolar 1 disorder (HCC) with psychotic effect Concussion Depression Gastroesophageal reflux disease without esophagitis Head injury Headache(784.0) Insomnia Memory loss Migraine Numbness ANUEL (obstructive sleep apnea) mild Osteomyelitis (HCC) 04/2023 L 5th digit Rheumatoid arthritis of multiple sites with negative rheumatoid factor (HCC) Sleep apnea Tremors of nervous system Past Surgical History: Procedure Laterality Date EGD, FLEXIBLE, DIAGNOSTIC 11/17/2022 erosive esophagitis, hiatal hernia, repeat 12 wks / [facility] LAPAROSCOPY; CHOLECYSTECTOMY 2014 RI AMPUTATION TOE METATARSOPHALANGEAL JOINT Left 05/02/2023 5th digit, at [facility] REPAIR OF NASAL SEPTUM Bilateral Social History Tobacco Use Smoking status: Some Days Current packs/day: 0.10 Average packs/day: 0.1 packs/day for 1 year (0.1 ttl pk-yrs) Types: Cigarettes Smokeless tobacco: Never Tobacco comments: only 1 cigarette when I have panic attacks, no more than 2 or 3 times a month Vaping Use Vaping Use: Never used Substance Use Topics Alcohol use: Not Currently Alcohol/week: 1.0 standard drink of alcohol Types: 1 1.5 oz of liquor per week Drug use: Never Family History Problem Relation Age of Onset Mental Disorder Mother anxiety Depression Mother Neurological Disorder Father Diabetes Father type 1 Mental Disorder Father anxiety Rheum arthritis Father Lupus Grandmother (Paternal) Breast Cancer Aunt (Paternal) Family Status Relation Status Mo Alive Fa Alive PGMA Alive PAUNT Alive Review of patient's allergies indicates: Allergen Reactions Zithromax [Azithromycin] rash Patient's Medications New Prescriptions No medications on file Previous Medications CETIRIZINE HCL 10 MG ORAL TABLET Take 1 Tablet by mouth in the morning. ESTRADIOL 2 MG ORAL TABLET Take 2 Tablets by mouth in the morning and 2 Tablets before bedtime. FINASTERIDE 5 MG ORAL TABLET (PROSCAR) Take 1 Tablet by mouth in the morning. MODAFINIL 100 MG ORAL TABLET (PROVIGIL) Take 0.5 Tablets by mouth in the morning. MULTI-VITAMINS ORAL TABLET Take 1 Tablet by mouth in the morning. OMEPRAZOLE 40 MG ORAL CAPSULE DELAYED RELEASE (PRILOSEC) take 1 capsule by mouth every morning RISPERIDONE 0.5 MG ORAL TABLET (RISPERDAL) Take 0.5 Tablets by mouth in the morning and 0.5 Tabletsbefore bedtime. SPIRONOLACTONE 50 MG ORAL TABLET (ALDACTONE) Take 1 Tablet by mouth in the morning and 1 Tablet before bedtime. Modified Medications No medications on file Discontinued Medications GABAPENTIN 100 MG ORAL CAPSULE (NEURONTIN) Take 4 Capsules by mouth in the morning and 4 Capsules in the evening. HYDROXYZINE HCL 25 MG ORAL TABLET Take 2 Tablets by mouth at bedtime. LAMOTRIGINE 100 MG ORAL TABLET (LAMICTAL) take 1 tablet by mouth at bedtime OMEGA-3 1000 MG ORAL CAPSULE Take 2 Capsules by mouth in the morning and 2 Capsules before bedtime.2 caps three times daily. VITAMIN B12 1000 MCG ORAL TABLET EXTENDED RELEASE Take 1,000 mcg by mouth every evening. DATA REVIEWED: Results for orders placed or performed in visit on 04/20/23 CBC Result Value Ref Range WBC 7.93 4.00 - 10.80 K/uL RBC 5.00 4.50 - 5.25 M/uL HGB 13.1 (L) 14.0 - 16.8 g/dL HCT 41.8 40.0 - 48.4 % MCV 83.6 82.0 - 99.5 fL MCH 26.2 27.0 - 34.0 pg MCHC 31.3 32.0 - 36.0 g/dL RDW 20.3 11.5 - 15.5 % PLT 505 (H) 140 - 400 K/uL MPV 9.9 6.6 - 11.1 fL No results found for: "HEMOGLOBIN A1C" Lab Results Component Value Date/Time TSH - [facility] 1.18 05/31/2021 02:01 PM TSH - OUTSIDE LAB 1.818 06/22/2022 12:00 AM No results found for: "LISA" Hepatitis B Surface Antibody, Interpretation Date Value Ref Range Status 11/30/2022 Immune to Hepatitis B Virus Final Comment: POSITIVE: >=11.5 mIU/mL INDETERMINATE: 8.5-<11.5 mIU/mL NEGATIVE: <8.5 mIU/mL Hepatitis B Surface Antibody, Qualitative Date Value Ref Range Status 11/30/2022 Positive Final Hepatitis B Surface Antibody, Quantitative Date Value Ref Range Status 11/30/2022 23.0 mIU/mL Final No results found for: "LYME" No results found for: "RPR" No results found for: "FTA-ABS" No results found for: "VDRL" Results for orders placed or performed in visit on 11/30/22 VITAMIN B12 Result Value Ref Range Vitamin B12 309 232 - 1,245 pg/mL 25-Hydroxy Vitamin D (ng/mL) Date Value 05/31/2021 36 Vitamin D Level Interpretation deficient: <20 ng/ml insufficient: 20-30 ng/ml normal: 31-100 ng/ml IMAGING STUDIES: Cervical spine CT, 03/24/23: Ordered for altered mental status and drug overdose. No images to review: Impression: Normal. Head CT without contrast, 03/24/23, no images to review: Ordered for terminal status and drug overdose: Impression: Normal head/brain CT. No extremity duplex, 04/05/23: Normal left lower extremity duplex. PHYSICAL EXAMINATION General - obese mail, appears stated age. in no apparent distress. Mood and affect: Appropriate Behavioral Observations: Effort for testing was full. Speech: Fluent. No paraphasic errors. No stuttering. Repetition: intact Cognitive and Neurologic exam Mental status: awake and alert. Orientation intact to Season, Year, Month, Date, and Day of the week and location Attention: intact with forward and backward. Intact tapping to the letter a. Calculation: fast and accurate serial 7 Memory : intact learning. 5/5 delayed recall. Abstraction: Intact. Executive: Did not test trail making (technical barrier) or clock drawing Visuospatial: Not tested today [place] Cognitive Assessment Scores: 09/24/2023 (Version 8.1) Visual/executive (/5) Naming (/3) 3 Digits (/2) 2 Letter A (/1) 1 Serial 7 (/3) 3 Repetition (/2) 2 Letter fluency (/1) 1 Abstraction (/2) 2 Delayed recall - spontaneous (5) 5 - Category cue N/a - Multiple choice cue N/a Orientation () 6 Total () Cranial Nerves: CN VII - no facial assymetry CN VIII - Intact to normal conversation CN IX, X: Dysarthria: None ASSESSMENT Mr. Jose Mckeon is a 28 year old right handed transgender adult with some college level education presenting for evaluation for memory decline since suicide attempt by OD a bottle of Ativan with alcohol in 03/2023. Patient told me no preferred pronoun but outside records shows he prefers femaleand to be called Ethel. They have a history significant for obesity, severe ANUEL (Sleep Medicine in [place] on . Can't tolerate CPAP), seronegative rheumatoid arthritis, ADHD, and depression. They had a horrible year with multiple life stressors, and unfortunately was unsuccessful in finding psychiatric health at the expense of giving up his scholarshi. Therefore they attempted suicide by OD, treated [facility] with an ICU stay due to respiratory failure requiring intubation, cognitive by electrolyte abnormalities and osteomyelitis of left fifth toe s/p amputation. Since 03/2023hospitalization, has had increased difficulty with his memory, namely none knowing how much time has elapsed. Patient is currently a sophomore in college, where a campus at [employer] in an counting.Has longstanding attention deficit since his childhood, only recently diagnosed and started modafinil for ADHD. They denied a diagnosis of schizoaffective disorder, bipolar type as hospital records indicated. Report that psychiatrist determined to be falls, and instead they have complex PTSD and ADHD. They are no longer on risperidone, lamotrigine or trazodone. Earlier this week they had neuropsychological testing. We do not have records but patient does so they will share over the patient portal. Based on my brief cognitive screening, he scored perfectly in attention, memory, abstraction and language. Visuospatial and executive functions were not tested. Based on my interaction with Ethel/Jose, it does NOT appear that they suffered anoxic brain injury. There was no MRI performed at [facility]. CT head and c-spine were lashawn. We will acquire recent neuropsychological test results. Order MRI brain, follow-up with in-person neurologic exam. Factors that can contribute to there cognitive impairment include longstanding, underlying psychiatric comorbidities (records report schizoaffective disorder bipolar type but patient reports that is false?), ADHD that more recently started treatment, and obstructive sleep apnea that is untreated. Diagnosis: ICD-10-CM 1. Memory loss R41.3 2. Obstructive sleep apnea syndrome G47.33 3. Suicide attempt (HCC) T14.91XA 4. Attention deficit hyperactivity disorder (ADHD), unspecified ADHD type F90.9 5. PTSD (post-traumatic stress disorder) F43.10 PLAN Memory loss Suicide attempt (HCC) - MRI BRAIN WITHOUT CONTRAST; Future - already had neuropsych testing 2 months ago, will review records which will be shared by the patient. - Treat ANUEL Obstructive sleep apnea syndrome - refer to sleep medicine for eval and alternative tx options which I briefly discussed as they were intolerant of PAP before. 4. Attention deficit hyperactivity disorder (ADHD), unspecified ADHD type 5. PTSD (post-traumatic stress disorder) - continue to follow with Psychiatry as an outpatient. Defer to them management of psychiatric comorbidities. Follow Up: Return in about 8 weeks (around 11/19/2023) for Clinic Visit. | For: Clinic Visit | Check-out note: With Megan Pino in [place]. The following orders were placed: Plan MRI Brain without IV contrast (Prior to Ordering - Confirm TSH and B12 are Normal, MMSE or MoCA areAbnormal) SLEEP MEDICINE REFERRAL OP This patient is suspected to have obstructive sleep apnea given snoring, witnessed apneas and significant daytime sleepiness. A sleep study was therefore ordered. We discussed treatment modalities for ANUEL including PAP. I spent a total of 65 minutes coordinating, documenting, and providing care for this patient excluding time spent in the performance of separately billed services or time spent by another provider/QHP. Vince Ingram DO Cognitive and Behavioral Neurology [facility] 09/26/2023 7:49 PM documented in this encounter Plan of Treatment Upcoming Encounters Date Type Department Care Team (Late st Contact Info) Description 02/11/2024 10:00 AM EDT Office Visit Neurology [facility] [address] [place] [address] Megan Pino CRNP [address] [place] [address] Scheduled Orders Name Type Priority Associated Diagnoses Orde r Schedule MRI BRAIN WITHOUT CONTRAST Medical Imaging Routine Memory loss Expected: 09/25/2023, Expires: 10/24/2024 Scheduled Referrals Name Type Priority Associated Diagnoses Orde r Schedule SLEEP MEDICINE REFERRAL OP Referral Within 10 days (routine) Obstructive sleep apnea syndrome Ordered: 09/26/2023 Health Maintenance Due Date Last Done Comments [...] as of this encounter Visit Diagnoses Diagnosis Memory loss- Primary Obstructive sleep apnea syndrome Obstructive sleep apnea (adult) (pediatric) Suicide attempt (HCC) Suicide and self-inflicted injury by unspecified means Attention deficit hyperactivity disorder (ADHD), unspecified ADHD type PTSD (post-traumatic stress disorder) Posttraumatic stress disorder documented in this encounter Care Teams Top Installer Relationship Specialty Start Date End Date Renata Waters MD [address] [facility] [place] [address] PCP - General Internal Medicine 05/10/21 documented as of this encounter
--- OUTSIDE RECORDS SUMMARY | 2023-12-08 08:23 | External Medical Summary | Summary of Care ---
Author Name Unknown Organization [facility] Address [address] [place] [address] Phone [phone] Care Team Providers Care Cable Television Technician Name Role Phone Renata Waters MD Primary Care Provider [phone] Reason for Visit * Reason Onset Date Comments Forms Request 06/30/2023 Encounter Details Date Type Department Care Team (Late st Contact Info) Description 06/30/2023 Telephone General Internal Medicine [facility] [address] [facility] [place] [id number] Renata Waters MD [address] [place] [address] Forms Request Allergies Active Allergy Reactions Criticality Noted Date Comments Azithromycin 02/07/2021 rash documented as of this encounter (statuses as of 07/14/2023) Medications Medication Sig Dispensed Refills Start Date End Date Status Cetirizine HCl 10 MG Oral Tablet Take 1 Tablet by mouth in the morning. 0 02/07/2021 Active Gabapentin 100 MG Oral Capsule (Neurontin) Take 4 Capsules by mouth in the morning and 4 Capsules in the evening. 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 Gastroesophageal reflux disease without esophagi tis Allergic sinusitis documented as of this encounter (statuses as of 07/14/2023) Resolved Problems Problem Noted Date Diagnosed Date Resolved Date BMI 40.0-44.9, adult 11/30/2022 023 documented as of this encounter (statuses as of 07/14/2023) Immunizations Name Administration Dates Next Due COVID-19 mRNA, LNP-s, No Pre serve, 2-Dose Series (Literably) 01/22/2021,08/05/2020,07/22/2020 Seasonal Influenza Virus Vac cine, Unspecified [...] encounter Miscellaneous Notes * Telephone Encounter - Louise Smith LPN - 07/14/2023 2:06 PM EST Form completed and faxed. Confirmation received. * Telephone Encounter - Renata Waters MD - 07/13/2023 5:58 PM EST Filled but need date of her other specialist visit * Telephone Encounter - Louise Smith LPN - 07/12/2023 1:50 PM EST Contacted patient to make sure this is something that she requested and that it was okay to releaseher information to them. She said she does agree to having the form completed and sent over to them. Form placed in Dr. Waters's folder. * Telephone Encounter - Steph Souza OSA - 06/30/2023 5:04 PM EST Received a call asking if fax was received by office. Name/Company sending fax: [employer] test case developer What fax is pertaining to: [facility] Date(s) they sent request: 05/3023 Verified fax number they are sending to is correct (Y or N): y Callback Number for the clinic to call to verified if fax was received: [phone] documented in this encounter Plan of Treatment Upcoming Encounters Date Type Department Care Team (Late st Contact Info) Description 09/28/2023 4:00 PM EDT Office Visit Rheumatology [place] [address] [place] [address] Brando Degroot MD [address] [place] [address] Health Maintenance Due Date Last Done Comments [...] filedocumented as of this encounter Care Teams Cable Television Technician Relationship Specialty Start Date End Date Renata Waters MD [address] [facility] [place] [address] PCP - General Internal Medicine 05/10/21 documented as of this encounter
--- OUTSIDE RECORDS SUMMARY | 2023-12-08 08:23 | External Medical Summary | Summary of Care ---
Author Name Unknown Organization [facility] Address [address] [place] [address] Phone [phone] Care Team Providers Care Enameler Name Role Phone Renata Waters MD Primary Care Provider [phone] Reason for Visit * Reason Onset Date Comments Scheduling 12/03/2023 WATCHPAT Encounter Details Date Type Department Care Team (Late st Contact Info) Description 12/03/2023 Telephone Sleep [facility] [address] [facility] [address] [facility] [address] [place] [address] Scheduling (WATCHPAT) Allergies Active Allergy Reactions Criticality Noted Date Comments Azithromycin 02/07/2021 rash documented as of this encounter (statuses as of 12/03/2023) Medications Medication Sig Dispensed Refills Start Date [...] by mouth in the morning. 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 negative rheumatoid factor Allergic sinusitis documented as of this encounter (statuses as of 12/03/2023) Resolved Problems Problem Noted Date Diagnosed Date Resolved Date BMI 40.0-44.9, adult 11/30/2022 023 documented as of this encounter (statuses as of 12/03/2023) Immunizations Name Administration Dates Next Due COVID-19 mRNA, LNP-s, No Pre serve, 2-Dose Series (CytoSolv) 01/22/2021,08/05/2020,07/22/2020 Seasonal Influenza Virus Vac cine, Unspecified [...] encounter Miscellaneous Notes * Telephone Encounter - Jasmyn Coornado OSA - 12/03/2023 1:30 PM EDT KAYLEE PARSONS NO AUTH documented in this encounter Plan of Treatment Upcoming Encounters Date Type Department Care Team (Late st Contact Info) Description 02/11/2024 10:00 AM EDT Office Visit Neurology Emperatriz Lozano [place] [address] [facility] [place] [place] [address] Megan Pino CRNP [address] [facility] [address] Health Maintenance Due Date Last Done Comments Pneumococcal Vaccine: Pediatrics (0 to 5 Years) and At-Risk Patients (6 to 64 Years) (1 of 2 - PCV) 2003 Depression Screening 2009 HIV Screening 2012 HPV (Gardasil) Vaccine (1 - 3-dose series) 2012 Hepatitis B Vaccine (1 of 3 - 19+ 3-dose series) 2016 Pap Smear 2018 COVID-19 Vaccine (4 - 2022-2 4 season) 2023 01/22/2021, 08/05/2020, 07/22/2020 Influenza Vaccine (FLU shot) (#1) 2024 01/20/2023, 02/07/2021, 02/07/2021 DTaP,Tdap,and Td Vaccines (2 - Td or Tdap) 01/20/2033 01/20/2023 MENINGOCOCCAL (MENACTRA/MENVEO) Aged Out No longer eligible b ased on patient's age to complete this topic documented as of this encounter Medical Devices Not on filedocumented as of this encounter Care Teams Enameler Relationship Specialty Start Date End Date Renata Waters MD 200 [place] [address] PCP - General Internal Medicine 05/10/21 documented as of this encounter
--- OUTSIDE RECORDS SUMMARY | 2023-12-08 08:23 | External Medical Summary | Summary of Care ---
Author Name Unknown Organization [facility] Address [address] [place] [address] Phone [phone] Care Team Providers Care Central Office Repairer Supervisor Name Role Phone Renata Waters MD Primary Care Provider [phone] Reason for Visit * Reason Onset Date Comments Scheduling 12/03/2023 WATCHPAT Encounter Details Date Type Department Care Team (Late st Contact Info) Description 12/03/2023 Telephone Sleep Lab [facility] Mccoy [address] [facility] [address] [facility] [address] [place] [facility] [place] [address] Scheduling (WATCHPAT) Allergies Active Allergy Reactions Criticality [...] anxiety disorder) 05/22/2015 Rheumatoid arthritis of [facility] sites with negative rheumatoid factor Allergic sinusitis documented as of this encounter (statuses as of 12/03/2023) Resolved Problems Problem Noted Date Diagnosed Date Resolved Date BMI 40.0-44.9, adult 11/30/2022 023 documented as of this encounter (statuses as of 12/03/2023) Immunizations Name Administration Dates Next Due COVID-19 mRNA, LNP-s, No Pre serve, 2-Dose Series (CoPatient) 01/22/2021,08/05/2020,07/22/2020 Seasonal Influenza Virus Vac cine, Unspecified [...] encounter Miscellaneous Notes * Telephone Encounter - Shannan Martins OSA - 12/03/2023 3:37 PM EDT Spoke with pt. He is not interested in scheduling at this time. He states he will call back "later" after he has moved and settled. * Telephone Encounter - Jasmyn Coronado OSA - 12/03/2023 1:30 PM EDT KAYLEE DESOUZA AUTH documented in this encounter Plan of Treatment Upcoming Encounters Date Type Department Care Team (Late st Contact Info) Description 02/11/2024 10:00 AM EDT Office Visit Neurology Emperatriz Lozano [place] [address] [facility] [place], [place] [address] Megan Pino CRNP [address] [place] [address] Health Maintenance Due Date Last Done Comments Pneumococcal Vaccine: Pediatrics (0 to 5 Years) and At-Risk Patients (6 to 64 Years) (1 of 2 - PCV) 2003 Depression Screening 2009 HIV Screening 2012 HPV (Gardasil) Vaccine (1 - 3-dose series) 2012 Hepatitis B Vaccine (1 of 3 - 19+ 3-dose series) 2016 Pap Smear 2018 COVID-19 Vaccine ( - 2022-2 4 season) 2023 01/22/2021, 08/05/2020, 07/22/2020 Influenza Vaccine (FLU shot) (#1) 2024 01/20/2023, 02/07/2021, 02/07/2021 DTaP,Tdap,and Td Vaccines (2 - Td or Tdap) 01/20/2033 01/20/2023 MENINGOCOCCAL (MENACTRA/MENVEO) Aged Out No longer eligible b ased on patient's age to complete this topic documented as of this encounter Medical Devices Not on filedocumented as of this encounter Care Teams Central Office Repairer Supervisor Relationship Specialty Start Date End Date Renata Waters MD [address] [place] [address] PCP - General Internal Medicine 05/10/21 documented as of this encounter
--- OUTSIDE RECORDS SUMMARY | 2023-12-08 08:23 | External Medical Summary | Summary of Care ---
Author Name Unknown Organization [facility] Address [address] [place] [address] Phone [phone] Care Team Providers Care Petroleum Inspector Supervisor Name Role Phone Renata Waters MD Primary Care Provider [phone] Reason for Visit * Reason Onset Date Comments Appointment 05/14/2023 Encounter Details Date Type Department Care Team (Late st Contact Info) Description 05/14/2023 Telephone General Internal Medicine [facility] [place] [address] [facility] [place] [place] [address] Renata Waters MD 200 [facility] [place] [address] Appointment Allergies Active Allergy Reactions Criticality Noted Date Comments Azithromycin 02/07/2021 rash documented as of this encounter (statuses as of 08/13/2023) Medications Medication Sig Dispensed Refills Start Date End Date Status Cetirizine HCl 10 MG Oral Tablet Take 1 Tablet by mouth in the morning. 0 02/07/2021 Active Gabapentin 100 MG Oral Capsule (Neurontin) Take 4 Capsules by mouth in the morning and 4 Capsules in the evening. 0 Active Sharon-3 1000 MG Oral Capsule Take 2 Capsules [...] 1 Tablet before bedtime. 0 04/16/2023 Active Vitamin B12 1000 MCG Oral Tablet Extended Release Take 1,000 mcg by mouth every evening. 0 2023 Active Multi-Vitamins Oral Tablet Take 1 Tablet by mouth in the morning. 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 negative rheumatoid factor Gastroesophageal reflux disease without esophagi tis Allergic sinusitis documented as of this encounter (statuses as of 08/13/2023) Resolved Problems Problem Noted Date Diagnosed Date Resolved Date BMI 40.0-44.9, adult 11/30/2022 023 documented as of this encounter (statuses as of 08/13/2023) Immunizations Name Administration Dates Next Due COVID-19 mRNA, LNP-s, No Pre serve, 2-Dose Series (ZOZI) 01/22/2021,08/05/2020,07/22/2020 Seasonal Influenza Virus Vac cine, Unspecified [...] encounter Miscellaneous Notes * Telephone Encounter - Liliana Birch RN - 05/14/2023 2:16 PM EST This patient did not have his surgery by one of our providers, was only seen here one time then went somewhere else and had surgery. Usually the surgeon who did the procedure will follow up. I will again forward this message to the mason helper provider for review. * Telephone Encounter - Keesha Pelletier OSA - 05/14/2023 2:03 PM EST Patient called to schedule an follow up to have his stitches removed. He had his toe amputated on his left foot. He states there's no way for him to go back to [place] right now everyone is gone out of town for the Holidays and it would cost him a lot to catch a ride there. He did say he could catch a ride to [facility] but my question is would a equipment cleaner and tester be able to remove the stitches in [facility] or would a wound care staff have to do it? Please advise. documented in this encounter Plan of Treatment [...] filedocumented as of this encounter Care Teams Petroleum Inspector Supervisor Relationship Specialty Start Date End Date Renata Waters MD 200 [place] [address] PCP - General Internal Medicine 05/10/21 documented as of this encounter
--- OUTSIDE RECORDS SUMMARY | 2023-12-08 08:23 | External Medical Summary | Summary of Care ---
Author Name Unknown Organization [facility] Address [address] [place] [address] Phone [phone] Care Team Providers Care Machine Joiner Cementer Name Role Phone Renata Waters MD Primary Care Provider [phone] Reason for Visit * Reason Comments eRx-Medication Refill Encounter Details Date Type Department Care Team (Late st Contact Info) Description 08/03/2023 Refill General Internal Medicine [facility] [place] 200 [facility] [place] [id number] Renata Waters MD 200 [facility] [place] [address] Allergies Active Allergy Reactions Criticality Noted Date Comments Azithromycin 02/07/2021 rash documented as of this encounter (statuses as of 08/06/2023) Medications Medication Sig Dispensed Refills Start Date End Date Status Cetirizine HCl 10 MG Oral Tablet Take 1 Tablet by mouth in the morning. 0 02/07/2021 Active Gabapentin 100 MG Oral Capsule (Neurontin) Take 4 Capsules by mouth in the morning and 4 Capsules in the evening. 0 Active Bayside-3 1000 MG Oral Capsule Take 2 Capsules [...] every morning 90 Capsule 3 06/11/2023 Active lamoTRIgine 100 MG Oral Tablet (LaMICtal)Indicat ions:in pm take 1 tablet by mouth at bedtime 90 Tablet 0 08/06/2023 Active lamoTRIgine 100 MG Oral Tablet (LaMICtal)Indicat ions:in pm Take 1 Tablet by mouth at bedtime. 90 Tablet 0 2023 Discontinued documented as of this encounter (statuses as of 08/06/2023) Active Problems Problem Noted Date Diagnosed Date Encounter for therapeutic drug monitoring 2021 Schizophrenia 04/29/2021 BMI 38.0-38.9,adult 02/07/2021 Obstructive sleep apnea, adult 09/27/2017 RONI (generalized anxiety disorder) 05/22/2015 Rheumatoid arthritis of [facility] sites with negative rheumatoid factor Gastroesophageal reflux disease without esophagi tis Allergic sinusitis documented as of this encounter (statuses as of 08/06/2023) Resolved Problems Problem Noted Date Diagnosed Date Resolved Date BMI 40.0-44.9, adult 11/30/2022 023 documented as of this encounter (statuses as of 08/06/2023) Immunizations Name Administration Dates Next Due COVID-19 mRNA, LNP-s, No Pre serve, 2-Dose Series (5 Million [employer]ers) 01/22/2021,08/05/2020,07/22/2020 Seasonal Influenza Virus Vac cine, Unspecified [...] Encounter - Jose Martin Blair MD - 08/06/2023 12:54 PM EDT Signed Prescriptions: Disp Refills lamoTRIgine 100 MG Oral Tablet (LaMICtal) 90 Tab*0 Sig: take 1 tablet by mouth at bedtime Authorizing Provider: JOSE MARTIN BLAIR * Telephone Encounter - Sylvia Gipson LPN - 08/06/2023 12:14 PM EDTPending Prescriptions: Disp Refills lamoTRIgine 100 MG Oral Tablet [Pharmacy M*90 Tab*0 Sig: Take 1 Tablet by mouth at bedtime. * Telephone Encounter - Syed Ramos - 08/03/2023 4:06 PM EDTPending Prescriptions: Disp Refills lamoTRIgine 100 MG Oral Tablet [Pharmacy M*90 Tab*0 Sig: Take 1Tablet by mouth at bedtime. documented in this encounter Plan of Treatment [...] as of this encounter Care Teams Machine Joiner Cementer Relationship Specialty Start Date End Date Renata Waters MD 200 [facility] [place] [address] PCP - General Internal Medicine 05/10/21 documented as of this encounter
--- OUTSIDE RECORDS SUMMARY | 2023-12-08 08:23 | External Medical Summary | Summary of Care ---
Author Name Unknown Organization [facility] Address [address] [place] [address] Phone [phone] Care Team Providers Care Oyster Shucker Name Role Phone Renata Waters MD Primary Care Provider [phone] Reason for Visit * Reason Comments NEW PATIENT * Evaluate & Treat - Unlimited Visits (Within 10 days (routine)) - Pending Review Specialty Diagnoses / Procedures Referred By Delia amaya Referred To Contact Sleep Medicine / Sleep Disorders Diagnoses Obstructive sleep apnea syndrome Vince Ingram, [address] [place] [address] Referral ID Status Reason Start Date Expiration Date Visits Requested Visits Authorized [id number] Pending Review Specialty Services Required 09/26/2023 2 2 Encounter Details Date Type Department Care Team (Late st Contact Info) Description 12/03/2023 11:40 AM EDT Telemedicine Sleep Disorders, [address] [address] Flor Ibarra MD [address] [place] [id number] ANUEL (obstructive sleep apnea)*; Sleep apnea, unspecified type Allergies Active Allergy Reactions Criticality Noted Date [...] (generalized anxiety disorder) 05/22/2015 Rheumatoid arthritis of [facility] sites with negative rheumatoid factor Allergic sinusitis documented as of this encounter (statuses as of 12/03/2023) Resolved Problems Problem Noted Date Diagnosed Date Resolved Date BMI 40.0-44.9, adult 11/30/2022 023 documented as of this encounter (statuses as of 12/03/2023) Immunizations Name Administration Dates Next Due COVID-19 mRNA, LNP-s, No Pre serve, 2-Dose Series ([employer]) 01/22/2021,08/05/2020,07/22/2020 Seasonal Influenza Virus Vac cine, Unspecified [...] as of this encounter Progress Notes * Flor Ibarra MD - 12/03/2023 11:49 AM EDT Patient location: HOME. I was not in a hospital or clinic location. After connecting through televideo, patient was verified with two unique identifiers. Patient (or authorized legal event sales representative) was then informed that this was a Telemedicine visit and being conducted confidentially over secure lines. Methods to assure confidentiality were taken. Patient acknowledged consent and understanding of privacy and security of the Telemedicine visit. The patient agreed to participate. Name: Jose Mckeon Sex: adult : 1995 CC/REASON FOR CONSULT: ANUEL HPI: Patient is a 28 yo with history of ANUEL but unable tolerate CPAP. Patient is having difficulty falling asleep, nightmares and feeling fatigue. Patient does keep a regular sleep/wake schedule. Patient goes to bed by 3-4 AM. Patient usually wakes up by 12 noon. On weekends, patient does not keep the same sleep schedule. Patient estimates a total sleep time (in a 24 hour period) of 6-7 hours. Patient does not work. Patient Reports problem falling asleep in 1 hour. Bedtime routine: relax . Patient usually sleeps in the side position. Once patient falls asleep, patient does wake up in the middle of the night, because of nightmares. Patient Denies waking up from sleep gasping for air or choking. Patient does not feel refreshed upon waking up. Patient Denies waking up with a dry mouth in the morning. During sleep patient usually breathes through Nose. There has been a recent change in weight. Patient is losing weight. Daytime sleepiness is a problem. There is no history of cataplexy, sleep paralysis or hypnagogic hallucinations. There is no history of a viral illness or significant head injury prior to the start of daytime sleepiness. Patient does not take naps. Patient does drive. Patient Denies feeling sleepy while driving. Patient does drink caffeinated beverages per day. Patient Denies having an urge to move the legs. Patient is having leg cramps. Patient Denies any history of parasomnias. Patient has not had a nasal fracture or other facial trauma. Patient has had any upper airway surgery. Patient does not have problems with nocturnal gastroesophageal reflux. Patient does have difficulty with memory or concentration. PAST TREATMENTS: CPAP PRIOR SLEEP STUDIES: Unavailable to review OTHER RELEVANT LABS AND STUDIES: None Review of Systems: General/Constitutional: Denies fever, chills, night sweats, or unexplained changes in weight. Head: Denies headache, dizziness, lightheadedness, or syncope. Eyes: Denies changes in vision, pain, itching, drainage, or redness. Ears: Denies changes in hearing, pain, pressure, ringing, or drainage. Nose: Positive for nasal congestion Throat: Denies post-nasal drip, sore throat, dry mouth, hoarseness, sour tastes in mouth/back of throat, or difficulty swallowing. Cardiovascular: Denies chest pain, palpitations, dyspnea on exertion, or edema in the lower extremities. Pulmonary: Denies shortness of breath, cough, wheezing, tightness hemoptysis, or phlegm. Gastrointestinal: Denies nausea, vomiting, diarrhea, constipation, indigestion/reflux, hematemesis,pain, melena or hematochezia. Genitourinary: Denies nocturia, urgency, frequency, incontinence, dysuria, or blood in urine. Musculoskeletal: Denies neck, back, or other joint pain. Denies numbness/tingling in extremities. Psych: Positive for PTSD Past Medical History: Diagnosis Date ADHD (attention deficit hyperactivity disorder) Allergic sinusitis Anxiety Bipolar 1 disorder (HCC) with psychotic effect Concussion Depression Gastroesophageal reflux disease without esophagitis Head injury Headache(784.0) Insomnia Memory loss Migraine Numbness ANUEL (obstructive sleep apnea) mild Osteomyelitis (HCC) 04/2023 L 5th digit Rheumatoid arthritis of multiple sites with negative rheumatoid factor ([facility]) Sleep apnea Tremors of nervous system Past Surgical History: Procedure Laterality Date EGD, FLEXIBLE, DIAGNOSTIC 11/17/2022 erosive esophagitis, hiatal hernia, repeat 12 wks / [facility] LAPAROSCOPY; CHOLECYSTECTOMY 2014 [place] AMPUTATION TOE METATARSOPHALANGEAL JOINT Left 05/02/2023 5th digit, at [facility] REPAIR OF NASAL SEPTUM Bilateral Social History Tobacco Use Smoking status: Some Days Current packs/day: 0.10 Average packs/day: 0.1 packs/day for 1 year (0.1 ttl pk-yrs) Types: Cigarettes Smokeless tobacco: Never Tobacco comments: only 1 cigarette when I have panic attacks, no more than 2 or 3 times a month Vaping Use Vaping status: Never Used Substance Use Topics Alcohol use: Not Currently Alcohol/week: 1.0 standard drink of alcohol Types: 1 1.5 oz of liquor per week Drug use: Never Family History Problem Relation Name Age of Onset Mental Disorder Mother Jose Agrawalrera anxiety Depression Mother Jose Agrawalrera Anxiety Disorder Mother Jose Agrawalrera Migraines Mother Jose Agrawalrera Neurological Disorder Father Darrell Agrawalrera Diabetes Father Darrell Agrawalrera type 1 Mental Disorder Father Darrell Mckeon anxiety Rheum arthritis Father Darrell Mckeon Anxiety Disorder Father Darrell Mckeon Migraines Father Darrell Mckeon Lupus Grandmother (Paternal) Breast Cancer Aunt (Paternal) Alzheimer's disease Grandfather (Paternal) Dad's Dad Allergies as of 12/03/2023 - Reviewed 05/24/2023 Allergen Reaction Noted Zithromax [azithromycin] 02/07/2021 Current Outpatient Medications Medication Sig Dispense Refill Cetirizine HCl 10 MG Oral Tablet Take 1 Tablet by mouth in the morning. Estradiol 2 MG Oral Tablet Take 2 Tablets by mouth in the morning and 2 Tablets before bedtime. Finasteride 5 MG Oral Tablet (Proscar) Take 1 Tablet by mouth in the morning. Spironolactone 50 MG Oral Tablet (Aldactone) Take 1 Tablet by mouth in the morning and 1 Tablet before bedtime. Multi-Vitamins Oral Tablet Take 1 Tablet by mouth in the morning. Omeprazole 40 MG Oral Capsule Delayed Release (PriLOSEC) take 1 capsule by mouth every morning 90 Capsule 3 Modafinil 100 MG Oral Tablet (Provigil) Take 0.5 Tablets by mouth in the morning. Progesterone 100 MG Oral Capsule (Prometrium) TAKE 1 CAPSULE BY MOUTH EVERY EVENING risperiDONE 0.5 MG Oral Tablet (RisperDAL) Take 0.5 Tablets by mouth in the morning and 0.5 Tabletsbefore bedtime. (Patient not taking: Reported on 12/03/2023) No current facility-administered medications for this visit. Physical Exam: Unable to attain due to nature of telemedicine encounter ESS: 08/14 Assessment: Patient is a 28 yo with history of ANUEL but unable tolerate CPAP. Patient is having difficulty falling asleep, nightmares and feeling fatigue. ANUEL WatchPAT Discussed the diagnosis and consequences including but not limited to i.e increased risk for hypertension, arrhthymias, stroke, congestive heart failure and . Treatment options discussed in detail, CPAP therapy explained. All questions were answered. Consider weight loss. JNC 7 lists ANUEL as a causal risk factor for hypertension. Effective treatment of hypertension decreases cardiovascular risk/injury Recommended patient keep consistent bed/wake times and to get 7-8 hours of sleep. Reviewed good sleep hygiene. Advised patient on the dangers of drowsy driving and not to drive when drowsy. F/U in 2 weeks after wp or sooner if needed. MD Vince Martinez DO documented in this encounter Nursing Notes * Bibi Griffith, PLUMBER SUPERVISOR - 12/03/2023 11:45 AM EDT Jose Mckeon [id number] There is no height or weight on file to calculate BMI. Neck Circumference: inches. Current CDL License: No Compliance: AHI: DME: The patient was identified by name and date of .:yes Pt was informed this was a video only visit, and pt agreed to participate.:yes New pt referred by Neurology for memory issues. Reports history of Positive Sleep study, unable to tolerate CPAP at that time. Kimper Sleepiness Scale Question 12/03/2023 10:58 AM EDT - Filed by Patient What is the chance you will doze off in the following situation? Sitting and reading No chance of dozing Watching TV No chance of dozing Sitting inactive in a public place, such as a theater or meeting No chance of dozing As a passenger in a car for an hour without a break Slight chance of dozing Lying down to rest in the afternoon when circumstances permit Moderate chance of dozing When sitting and talking to someone No chance of dozing When sitting quietly after lunch without alcohol No chance of dozing In a car, while stopped for a few minutes in traffic No chance of dozing Score (range: 0 - 24) 3 Functional Outcomes Of Sleep Question 12/03/2023 11:00 AM EDT - Filed by Patient Please complete the following questions. Do you have difficulty concentrating because you are sleepy or tired? Yes, a little Do you have difficulty remembering things because you are sleepy or tired? No Do you have difficulty operating a motor vehicle for short distances (less than 100 miles) because you become sleepy? Yes, a little Do you have difficulty operating a motor vehicle for long distances (more than 100 miles) because you become sleepy? Yes, a little Do you have difficulty visiting family or friends in their home because you become sleepy or tired?No Has your relationship with family, friends, or work colleagues been affected because you are sleepyor tired? Yes, moderate Do you have difficulty watching a movie or video because you become sleepy or tired? No Do you have difficulty being as active as you want to be in the evening because you are tired or sleepy? No Do you have difficulty being as active as you want to be in the morning because you are tired or sleepy? Yes, extreme Has your mood been affected because you are sleepy or tired? Yes, moderate Score (range: 10 - 40) 30 Myc Visit Accident Related Question Question 12/03/2023 11:00 AM EDT - Filed by Patient Is this visit related to an accident? (i.e work, motor vehicle) No documented in this encounter Plan of Treatment Upcoming Encounters Date Type Department Care Team (Late st Contact Info) Description 02/11/2024 10:00 AM EDT Office Visit Neurology [facility] [address] [place] [address] Megan Pino CRNP [address] [place] [address] Scheduled Orders Name Type Priority Associated Diagnoses Orde r Schedule HOME SLEEP TEST W/TYPE 4 MONITOR, 3 CHANNEL Procedures Routine ANUEL (obstructive sleep apnea) Sleep apnea, unspecified type Ordered: 12/03/2023 Health Maintenance Due Date Last Done Comments [...] as of this encounter Visit Diagnoses Diagnosis ANUEL (obstructive sleep apnea)- Primary Obstructive sleep apnea (adult) (pediatric) Sleep apnea, unspecified type documented in this encounter Care Teams Oyster Shucker Relationship Specialty Start Date End Date Renata Waters MD [address] [place] [address] [place] [address] PCP - General Internal Medicine 05/10/21 documented as of this encounter
--- OUTSIDE RECORDS SUMMARY | 2023-12-08 08:24 | External Medical Summary | Summary of Care ---
Author Name Unknown Organization [facility] Address [address] [place] [address] Phone [phone] Care Team Providers Care Florist Name Role Phone Renata Waters MD Primary Care Provider [phone] Reason for Referral * Evaluate & Treat - Unlimited Visits (Within 10 days (routine)) - Pending Review Specialty Diagnoses / Procedures Referred By Delia amaya Referred To Contact Psychiatry / Psychology Diagnoses ADHD Jose Grajeda PA-C [address] [address] Referral ID Status Reason Start Date Expiration Date Visits Requested Visits Authorized [id number] Pending Review Specialty Services Required 07/02/[phone] Question Answer Referral Priority Within 10 days (routine) Where should this appointment be scheduled? [facility] Is this referral for medication management? No What condition is this patient being seen for? ADHD Specific Condition Other (Comment) Comments Neuropsychological evaluations are INTERACTIVE and use materials that require a patient to SEE, HEAR, and often WRITE. If a patient is unable to engage in this way, neurocognitive assessment may be abbreviated or deemed inappropriate. Please use caution in establishing expectations with your patient, and note any limitations in the comments section of the referral order. ADHD- requesting Diomedes Mckay Encounter Details Date Type Department Care Team (Late st Contact Info) Description 07/02/2023 Orders Only Access [place] [place] [address] [place] [address] Ext *DO NOT REMOVE THIS DEPARTMENT* [place] [id number] Request, External Referral ADHD* Allergies Active Allergy Reactions Criticality Noted Date Comments Azithromycin 02/07/2021 rash documented as of this encounter (statuses as of 07/02/2023) Medications Medication Sig Dispensed Refills Start Date End Date Status Cetirizine HCl 10 MG Oral Tablet Take 1 Tablet by mouth in the morning. 0 02/07/2021 Active Gabapentin 100 MG Oral Capsule (Neurontin) Take 4 Capsules by mouth in the morning and 4 Capsules in the evening. 0 Active [place]-3 1000 MG Oral Capsule Take 2 Capsules [...] as of this encounter (statuses as of 07/02/2023) Active Problems Problem Noted Date Diagnosed Date Encounter for therapeutic drug monitoring 2021 Schizophrenia 04/29/2021 BMI 38.0-38.9,adult 02/07/2021 Obstructive sleep apnea, adult 09/27/2017 RONI (generalized anxiety disorder) 05/22/2015 Rheumatoid arthritis of mult iple sites with negative rheumatoid factor Gastroesophageal reflux disease without esophagi tis Allergic sinusitis documented as of this encounter (statuses as of 07/02/2023) Resolved Problems Problem Noted Date Diagnosed Date Resolved Date BMI 40.0-44.9, adult 11/30/2022 023 documented as of this encounter (statuses as of 07/02/2023) Immunizations Name Administration Dates Next Due COVID-19 mRNA, LNP-s, No Pre serve, 2-Dose Series (Pfizer) 01/22/2021,08/05/2020,07/22/2020 Seasonal Influenza Virus Vac cine, Unspecified [...] 4:00 PM EDT Office Visit Rheumatology [facility] [address] [place] [address] Brando Degroot MD [address] [place] [address] Scheduled Referrals Name Type Priority Associated Diagnoses Order Schedule ADULT/PEDS NEUROPSYCHOLOGY REFERRAL OP Referral Within 10 days (routine) ADHD Ordered: 07/02/2023 Health Maintenance Due Date Last Done Comments Hepatitis B (1 of 3 - 3-dose series) 1997 GARDASIL-HPV IMMUNIZATION SERIES (1 - 2-dose series) 2008 Depression Screening 2009 HIV Screening 2012 Pap Smear 2018 COVID-19 Vaccine (4 - [...] as of this encounter Visit Diagnoses Diagnosis ADHD- Primary documented in this encounter Care Teams Florist Relationship Specialty Start Date End Date Renata Waters MD [address] [place] [address] PCP - General Internal Medicine 05/10/21 documented as of this encounter
--- OUTSIDE RECORDS SUMMARY | 2023-12-08 08:24 | External Medical Summary | Summary of Care ---
Author Name Unknown Organization [facility] Address [address] [place] [address] Phone [phone] Care Team Providers Care Field Collector Name Role Phone Renata Waters MD Primary Care Provider [phone] Encounter Details Date Type Department Care Team (Late st Contact Info) Description 06/14/2023 Orders Only PATIENT PORTAL DO NOT DELETE THIS DEPT USED BY [place] [id number] Allergies Active Allergy Reactions Criticality Noted Date Comments Azithromycin 02/07/2021 rash documented as of this encounter (statuses as of 06/14/2023) Medications Medication Sig Dispensed Refills Start Date End Date Status Cetirizine HCl 10 MG Oral Tablet Take 1 Tablet by mouth in the morning. 0 02/07/2021 Active Gabapentin 100 MG Oral Capsule (Neurontin) Take 4 Capsules by mouth in the morning and 4 Capsules in the evening. 0 Active [place]-3 1000 MG Oral Capsule Take 2 Capsules [...] as of this encounter (statuses as of 06/14/2023) Active Problems Problem Noted Date Diagnosed Date Encounter for therapeutic drug monitoring 2021 Schizophrenia 04/29/2021 BMI 38.0-38.9,adult 02/07/2021 Obstructive sleep apnea, adult 09/27/2017 RONI (generalized anxiety disorder) 05/22/2015 Rheumatoid arthritis of [facility] sites with negative rheumatoid factor Gastroesophageal reflux disease without esophagi tis Allergic sinusitis documented as of this encounter (statuses as of 06/14/2023) Resolved Problems Problem Noted Date Diagnosed Date Resolved Date BMI 40.0-44.9, adult 11/30/2022 023 documented as of this encounter (statuses as of 06/14/2023) Immunizations Name Administration Dates Next Due COVID-19 mRNA, LNP-s, No Pre serve, 2-Dose Series (Dine in) 01/22/2021,08/05/2020,07/22/2020 Seasonal Influenza Virus Vac cine, Unspecified [...] 09/28/2023 4:00 PM EDT Office Visit Rheumatology [facility] [place] [address] [place] [address] Brando Degroot MD [address] [place] [address] Health Maintenance Due Date Last Done Comments Hepatitis B (1 of 3 - 3-dose series) 1997 GARDASIL-HPV IMMUNIZATION SERIES (1 - 2-dose series) 2008 Depression Screening 2009 HIV Screening 2012 Pap Smear 2018 COVID-19 Vaccine (2022-2 4 season) 2023 01/22/2021, 08/05/2020, 07/22/2020 DTaP,Tdap,and [...] filedocumented as of this encounter Care Teams Field Collector Relationship Specialty Start Date End Date Renata Waters MD [address] [facility] [place] [address] PCP - General Internal Medicine 05/10/21 documented as of this encounter
--- OUTSIDE RECORDS SUMMARY | 2023-12-08 08:24 | External Medical Summary | Summary of Care ---
Author Name Unknown Organization [facility] Address [address] [place] [address] Phone [phone] Care Team Providers Care Knot Picker Cloth Name Role Phone Renata Waters MD Primary Care Provider [phone] Reason for Visit * Reason Comments eRx-Medication Refill Encounter Details Date Type Department Care Team (Late st Contact Info) Description 06/10/2023 Refill General Internal Medicine [facility] [place] [address] [facility] [place] [phone] [facility] [address] Encounter for long-term (current) use of medications*; Gastroesophageal reflux disease with esophagitis and hemorrhage Allergies Active Allergy Reactions Criticality Noted Date Comments Azithromycin 02/07/2021 rash documented as of this encounter (statuses as of 06/11/2023) Medications Medication Sig Dispensed Refills Start Date End Date Status Cetirizine HCl 10 MG Oral Tablet Take 1 Tablet by mouth in the morning. 0 02/07/2021 Active Gabapentin 100 MG Oral Capsule (Neurontin) Take 4 Capsules by mouth in the morning and 4 Capsules in the evening. 0 Active [place]-3 1000 MG Oral Capsule Take 2 Capsules [...] 04/16/2023 Active lamoTRIgine 100 MG Oral Tablet (LaMICtal)Indicat [...] every morning 90 Capsule 3 06/11/2023 Active Omeprazole 40 MG Oral Capsule Delayed Release (PriLOSEC)Indicat ions:Gastroesopha geal reflux disease with esophagitis and hemorrhage take 1 capsule by mouth every morning 90 Capsule 0 03/19/2023 Discontinued documented as of this encounter (statuses as of 06/11/2023) Active Problems Problem Noted Date Diagnosed Date Encounter for therapeutic drug monitoring 2021 Schizophrenia 04/29/2021 BMI 38.0-38.9,adult 02/07/2021 Obstructive sleep apnea, adult 09/27/2017 RONI (generalized anxiety disorder) 05/22/2015 Rheumatoid arthritis of [facility] sites with negative rheumatoid factor Gastroesophageal reflux disease without esophagi tis Allergic sinusitis documented as of this encounter (statuses as of 06/11/2023) Resolved Problems Problem Noted Date Diagnosed Date Resolved Date BMI 40.0-44.9, adult 11/30/2022 023 documented as of this encounter (statuses as of 06/11/2023) Immunizations Name Administration Dates Next Due COVID-19 mRNA, LNP-s, No Pre serve, 2-Dose Series ([employer]) 01/22/2021,08/05/2020,07/22/2020 Seasonal Influenza Virus Vac cine, Unspecified [...] encounter Miscellaneous Notes * Telephone Encounter - Cesario Sands [facility] - 06/11/2023 10:39 AM EST Signed Prescriptions: Disp Refills Omeprazole 40 MG Oral Capsule Delayed Rele*90 Cap*3 Sig: take 1 capsule by mouth every morningAuthorizing Provider: Adelina WATERS User: CESARIO SANDS * Telephone Encounter - Cesario Sands [facility] - 06/11/2023 10:37 AM EST Per refill protocol patient needs magnesium lab on file within the past 2 years while using PPIs. Lab work ordered. Patient may obtain with next routine labs. Thank you, Cesario Sands, PharmD Clinical Pharmacist [facility] ([facility] (Formerly [facility]) [phone] 06/11/2023, 10:37 AM documented in this encounter Plan of Treatment Upcoming Encounters Date Type Department Care Team (Late st Contact Info) Description 09/28/2023 4:00 PM EDT Office Visit Rheumatology [address] [place] [address] Brando Degroot MD [facility] [place] [address] Scheduled Orders Name Type Priority Associated Diagnoses Orde r Schedule MAGNESIUM Lab Routine Encounter for long-term (current) use of medications Expected: 06/11/2023 (Approximate), Expires: 06/11/2024 Health Maintenance Due Date Last Done Comments [...] as of this encounter Visit Diagnoses Diagnosis Encounter for long-term (current) use of medications- Primary Encounter for long-term (current) use of other medications Gastroesophageal reflux disease with esophagitis and hemorrhage documented in this encounter Care Teams Knot Picker Cloth Relationship Specialty Start Date End Date Renata Waters MD [address] [place] [address] PCP - General Internal Medicine 05/10/21 documented as of this encounter
[2023-12-08] MEDS: LORATADINE 10 MG TAB PO SCH (12:10)
[2023-12-08] MEDS ORDERED: EUCERIN CR 120 GM JAR EXT PRN (13:17)
[2023-12-08] MEDS: lamoTRIgine 25 MG TAB PO SCH (13:38)
[2023-12-08] MEDS: CHOLECALCIFEROL 125 MCG (5,000 UNITS) TAB PO SCH (13:38)
[2023-12-08] MEDS: CYANOCOBALAMIN (B-12) 100 MCG TABLET PO SCH (13:38)
[2023-12-08] MEDS: PANTOprazole 40 MG TAB PO SCH (13:39)
[2023-12-08] MEDS: modafiniL 100 MG TAB PO SCH (13:41)
[2023-12-08] MEDS: estradioL 1 MG TAB PO SCH (14:15)
[2023-12-08] MEDS: SPIRONOLACTONE 100 MG TAB PO SCH (16:57)
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
[2023-12-08] MEDS ORDERED: estradioL 1 MG TAB PO SCH (21:00)
[2023-12-08] MEDS ORDERED: SPIRONOLACTONE 100 MG TAB PO SCH ×2 (21:00)
[2023-12-08] MEDS: hydrOXYzine HCl 25 MG TAB PO PRN (22:28)
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
[2023-12-09] MEDS: cloNIDine HCL 0.1 MG TAB PO SCH (21:33)
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
[2023-12-10 16:08] LABS: Marijuana Quant, GCMS Urine 229 ng/mL (<5)
[2023-12-10] MEDS: ALPRAZolam 0.5 MG TABLET PO SCH (21:37)
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
[2023-12-11] MEDS: hydrOXYzine HCl 25 MG TAB PO PRN (10:16)
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
== END 2023-12-11 15:32 | disposition home or self-care (01) | DRG 882 ==
LOC: ED 22:46 → SUATTDRO 12-08 02:06 → 3S 12-08 02:06

== ENCOUNTER 2024-01-24 13:31 | Inpatient (IN) ==
[2024-01-24] MEDS ORDERED: BISMUTH SUBSALICYLATE LIQD 236 ML PO PRN (13:43)
[2024-01-24] MEDS ORDERED: ALUMINUM/MAGNESIUM SUSP 30 ML UDC PO PRN (13:43)
[2024-01-24] MEDS ORDERED: SODIUM CHLORIDE 0.65% NA SOLN 45 ML (OCEAN) PRN (13:43)
[2024-01-24] MEDS ORDERED: MAGNESIUM HYDROXIDE SUSP 30 ML UDC PO PRN (13:43)
[2024-01-24] MEDS ORDERED: hydrOXYzine HCl 25 MG TAB PO PRN (13:43)
--- OUTSIDE RECORDS SUMMARY | 2024-01-24 17:30 | External Medical Summary | Summary of Care ---
Author Name Unknown Organization [facility] Address [address] [place] [address] Phone [phone] Care Team Providers Care Vocal Teacher Name Role Phone Renata Waters MD Primary Care Provider [phone] Reason for Visit * Reason Onset Date Comments Appointment 12/31/2023 Neurology Encounter Details Date Type Department Care Team (Late st Contact Info) Description 12/31/2023 Telephone Neurology, [place] [address] [place] [address] Vince Ingram, DO [address] [place] [address] Appointment (Neurology) Allergies Active Allergy Reactions Criticality Noted Date Comments Nsaids 12/31/2023 Acetaminophen 12/31/2023 Azithromycin 02/07/2021 rash documented as of this encounter (statuses as of 12/31/2023) Medications Medication Sig Dispensed Refills Start Date End Date Status Cetirizine HCl 10 MG Oral Tablet Take 1 Tablet by mouth in the morning. 02/07/2021 Active Estradiol 2 MG Oral Tablet Take 2 Tablets by mouth in the morning and 2 Tablets before bedtime. 04/14/2023 Active Finasteride 5 MG Oral Tablet (Proscar) Take 1 Tablet by mouth in the morning. 04/16/2023 Active Spironolactone 50 MG Oral Tablet (Aldactone) [...] Modafinil 100 MG Oral Tablet (Provigil) Take 1 Tablet by mouth in the morning. 09/17/2023 Active Progesterone 100 MG Oral Capsule (Prometrium) TAKE 1 CAPSULE BY MOUTH EVERY EVENING 09/27/2023 Active cloNIDine HCl 0.1 MG Oral Tablet (Catapres) TAKE ONE TABLET BY MOUTH AT BEDTIME FOR ADHD 12/11/2023 Active hydrOXYzine HCl 25 MG Oral Tablet TAKE 1 TABLET BY MOUTH EVERY DAY NEEDED FOR ANXIETY 12/11/2023 Active documented as of this encounter (statuses as of 12/31/2023) Active Problems Problem Noted Date Diagnosed Date Encounter for therapeutic drug monitoring 2021 Schizophrenia 04/29/2021 BMI 38.0-38.9,adult 02/07/2021 Obstructive sleep apnea, adult 09/27/2017 Daytime sleepiness 06/01/2016 Gastroesophageal reflux disease 05/22/2015 RONI (generalized anxiety disorder) 05/22/2015 Rheumatoid arthritis of [facility] sites with negative rheumatoid factor Allergic sinusitis documented as of this encounter (statuses as of 12/31/2023) Resolved Problems Problem Noted Date Diagnosed Date Resolved Date BMI 40.0-44.9, adult 11/30/2022 023 documented as of this encounter (statuses as of 12/31/2023) Immunizations Name Administration Dates Next Due COVID-19 mRNA, LNP-s, No Pre serve, 2-Dose Series (IPexpert) 01/22/2021,08/05/2020,07/22/2020 Seasonal Influenza Virus Vac cine, Unspecified [...] drink = 0.6 oz pur e alcohol) Rare AUDIT-C Answer Date Recorded Q1: How often [...] encounter Miscellaneous Notes * Telephone Encounter - Aleja Oviedo OSA - 12/31/2023 11:13 AM EDT Pt needs a 4 mth video ret visit with Dr Ingram on her [place] Schedule and nothing coming up documented in this encounter Plan of Treatment Upcoming Encounters Date Type Department Care Team (Late st Contact Info) Description 01/05/2024 2:00 PM EDT NeuroDiagnostic Study Neurophysiology [facility] [employer] [address] [place] [address] Sp, Neurophys Tech [address] [facility] [place] [id number] Health Maintenance Due Date Last Done Comments [...] filedocumented as of this encounter Care Teams Vocal Teacher Relationship Specialty Start Date End Date Renata Wtaers MD [address] [place] [address] PCP - General Internal Medicine 05/10/21 documented as of this encounter
--- OUTSIDE RECORDS SUMMARY | 2024-01-24 17:30 | External Medical Summary | Summary of Care ---
Author Name Unknown Organization [facility] Address [address] [place] [address] Phone [phone] Care Team Providers Care At Risk Paraprofessional Name Role Phone Renata Waters MD Primary Care Provider [phone] Reason for Visit * Reason Comments EEG Encounter Details Date Type Department Care Team (Late st Contact Info) Description 01/05/2024 2:00 PM EDT NeuroDiagnostic Study Neurophysiology [facility] [address] [facility] [place] [address] Sp, Neurophys Tech [address] [place] [address] Allergies Active Allergy Reactions Criticality Noted Date Comments Nsaids 12/31/2023 Acetaminophen 12/31/2023 Azithromycin 02/07/2021 rash documented as of this encounter (statuses as of 01/11/2024) Medications Medication Sig Dispensed Refills Start Date [...] as of this encounter (statuses as of 01/11/2024) Active Problems Problem Noted Date Diagnosed Date Encounter for therapeutic drug monitoring 2021 Schizophrenia 04/29/2021 BMI 38.0-38.9,adult 02/07/2021 Obstructive sleep apnea, adult 09/27/2017 Daytime sleepiness 06/01/2016 Gastroesophageal reflux disease 05/22/2015 RONI (generalized anxiety disorder) 05/22/2015 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 Allergic sinusitis documented as of this encounter (statuses as of 01/11/2024) Resolved Problems Problem Noted Date Diagnosed Date Resolved Date BMI 40.0-44.9, adult 11/30/2022 023 documented as of this encounter (statuses as of 01/11/2024) Immunizations Name Administration Dates Next Due COVID-19 mRNA, LNP-s, No Pre serve, 2-Dose Series ([employer]) 01/22/2021,08/05/2020,07/22/2020 Seasonal Influenza Virus Vac cine, Unspecified [...] as of this encounter Progress Notes * Narciso Curry, DO - 01/11/2024 2:14 PM EDT ROUTINE EEG REPORT Name: Jose Mckeon Date of study: 01/05/2024, 14:22-14:45 Age: [age] year old Outpatient Referring Physician: Megan CR TECHNICAL REMARKS: This is a technically satisfactory eighteen channel record employing 21 disc electrodes applied according to a measured international 10-20 electrode placement system. There were no significant technical difficulties. CLINICAL INFORMATION: A 28-year-old male with transient alteration of awareness. EEG performed for evaluation of epileptiform activity. MEDICATIONS: Current Outpatient Medications Medication Sig Dispense Refill [...] 1 Tablet by mouth in the morning. (Patient not taking: Reported on 12/31/2023) Omeprazole 40 MG Oral Capsule Delayed Release (PriLOSEC) take 1 capsule by mouth every morning 90 Capsule 3 Modafinil 100 MG Oral Tablet (Provigil) Take 1 Tablet by mouth in the morning. Progesterone 100 MG Oral Capsule (Prometrium) TAKE 1 CAPSULE BY MOUTH EVERY EVENING cloNIDine HCl 0.1 MG Oral Tablet (Catapres) TAKE ONE TABLET BY MOUTH AT BEDTIME FOR ADHD hydrOXYzine HCl 25 MG Oral Tablet TAKE 1 TABLET BY MOUTH EVERY DAY NEEDED FOR ANXIETY No current facility-administered medications for this visit. REPORT: At the onset of the EEG, the patient is awake. The background activity consist of 10-11 Hz,persistent, posteriorly dominant, moderate amplitude, symmetric and rhythmic activity that is reactive to eye opening. Anteriorly, it consist of a mixture of low voltage indeterminate activity and 15-25 Hz, persistent, low amplitude, symmetric and rhythmic activity. Stepwise intermittent photic stimulation (1-21 Hz) does not induce any abnormalities. Drowsiness is characterized by low amplitude mixed frequency activity, roving eye movements, and decreased eye blinking and muscle artifact. IMPRESSION: This is a normal awake and drowsy routine EEG. There is no evidence of focal slowing orepileptiform activity. Narciso Curry DO documented in this encounter Plan of Treatment Upcoming Encounters Date Type Department Care Team (Late st Contact Info) Description 05/08/2024 1:00 PM EST Telemedicine Neurology [address] [place] [phone] Megan Pino CRNP [address] [facility] [place] [address] Scheduled Orders Name Type Priority Associated Diagnoses Orde r Schedule EEG ROUTINE Procedures Routine Transient alteration of awareness Ordered: 12/31/2023 Health Maintenance Due Date Last Done Comments [...] as of this encounter Visit Diagnoses Diagnosis Transient alteration of awareness [R40.4]- Primary Transient alteration of awareness documented in this encounter Care Teams At Risk Paraprofessional Relationship Specialty Start Date End Date Renata Waters MD [address] [facility] [address] PCP - General Internal Medicine 05/10/21 documented as of this encounter
--- OUTSIDE RECORDS SUMMARY | 2024-01-24 17:30 | External Medical Summary | Summary of Care ---
Author Name Unknown Organization [facility] Address [address] [place] [address] Phone [phone] Care Team Providers Care Radiosonde Specialist Name Role Phone Renata Waters MD Primary Care Provider [phone] Reason for Visit * Reason Onset Date Comments Appointment 12/31/2023 Neurology Encounter Details Date Type Department Care Team (Late st Contact Info) Description 12/31/2023 Telephone Neurology, [place] [address] [place] [address] Vince Ingram, DO [address] [place] [address] Appointment (Neurology) Allergies Active Allergy [...] arthritis of [facility] sites with negative rheumatoid factor Allergic sinusitis documented as of this encounter (statuses as of 12/31/2023) Resolved Problems Problem Noted Date Diagnosed Date Resolved Date BMI 40.0-44.9, adult 11/30/2022 023 documented as of this encounter (statuses as of 12/31/2023) Immunizations Name Administration Dates Next Due COVID-19 mRNA, LNP-s, No Pre serve, 2-Dose Series ([employer]) 01/22/2021,08/05/2020,07/22/2020 Seasonal Influenza Virus Vac cine, Unspecified [...] ret visit with Dr Ingram on her [place] Schedule and nothing coming up documented in this encounter Plan of Treatment Upcoming Encounters Date Type Department Care Team (Late st Contact Info) Description 01/05/2024 2:00 PM EDT NeuroDiagnostic Study Neurophysiology [facility] [address] [place] [address] Sp, Neurophys Tech [address] [facility] [place] [address] Health Maintenance Due Date Last Done Comments [...] filedocumented as of this encounter Care Teams Radiosonde Specialist Relationship Specialty Start Date End Date Renata Waters MD [address] [place] [address] PCP - General Internal Medicine 05/10/21 documented as of this encounter
--- OUTSIDE RECORDS SUMMARY | 2024-01-24 17:30 | External Medical Summary | Summary of Care ---
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 Allergic sinusitis documented as of this encounter (statuses as of 12/31/2023) Resolved Problems Problem Noted Date Diagnosed Date Resolved Date BMI 40.0-44.9, adult 11/30/2022 023 documented as of this encounter (statuses as of 12/31/2023) Immunizations Name Administration Dates Next Due COVID-19 mRNA, LNP-s, No Pre serve, 2-Dose Series ([employer]) 01/22/2021,08/05/2020,07/22/2020 Seasonal Influenza Virus Vac cine, Unspecified [...] ret visit with Dr Ingram on her [place] Schedule and nothing coming up documented in this encounter Plan of Treatment Upcoming Encounters Date Type Department Care Team (Late st Contact Info) Description 01/05/2024 2:00 PM EDT NeuroDiagnostic Study Neurophysiology [facility] [address] [place] [address] Sp, Neurophys Tech [address] [facility] [place] [address] Health Maintenance Due Date Last Done Comments [...] filedocumented as of this encounter Care Teams Deep Fat Fry Cook Relationship Specialty Start Date End Date Renata Waters MD [address] [facility] [place] [address] PCP - General Internal Medicine 05/10/21 documented as of this encounter
--- OUTSIDE RECORDS SUMMARY | 2024-01-24 17:30 | External Medical Summary | Summary of Care ---
Author Name Unknown Organization [facility] Address [address] [place] [address] Phone [phone] Care Team Providers Care Showroom Sales Consultant Name Role Phone Renata Waters MD Primary Care Provider [phone] Reason for Visit * Reason Onset Date Comments Appointment 12/31/2023 Neurology Encounter Details Date Type Department Care Team (Late st Contact Info) Description 12/31/2023 Telephone Neurology, [place] [address] [place] [address] Vince Ingram, DO [address] [place] [address] Appointment (Neurology) Allergies Active Allergy Reactions Criticality Noted Date Comments Nsaids 12/31/2023 Acetaminophen 12/31/2023 Azithromycin 02/07/2021 rash documented as of this encounter (statuses as of 01/04/2024) Medications Medication Sig Dispensed Refills Start Date [...] as of this encounter (statuses as of 01/04/2024) Active Problems Problem Noted Date Diagnosed Date Encounter for therapeutic drug monitoring 2021 Schizophrenia 04/29/2021 BMI 38.0-38.9,adult 02/07/2021 Obstructive sleep apnea, adult 09/27/2017 Daytime sleepiness 06/01/2016 Gastroesophageal reflux disease 05/22/2015 RONI (generalized anxiety disorder) 05/22/2015 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 Allergic sinusitis documented as of this encounter (statuses as of 01/04/2024) Resolved Problems Problem Noted Date Diagnosed Date Resolved Date BMI 40.0-44.9, adult 11/30/2022 023 documented as of this encounter (statuses as of 01/04/2024) Immunizations Name Administration Dates Next Due COVID-19 mRNA, LNP-s, No Pre serve, 2-Dose Series ([employer]) 01/22/2021,08/05/2020,07/22/2020 Seasonal Influenza Virus Vac cine, Unspecified [...] ret visit with Dr Ingram on her [place] Schedule and nothing coming up documented in this encounter Plan of Treatment Upcoming Encounters Date Type Department Care Team (Late st Contact Info) Description 01/05/2024 2:00 PM EDT NeuroDiagnostic Study Neurophysiology [facility] [address] [place] [address] Sp, Neurophys Tech [address] [facility] [place] [address] Health Maintenance Due Date Last Done Comments [...] filedocumented as of this encounter Care Teams Showroom Sales Consultant Relationship Specialty Start Date End Date Renata Waters MD [address] [place] [address] PCP - General Internal Medicine 05/10/21 documented as of this encounter
--- OUTSIDE RECORDS SUMMARY | 2024-01-24 17:30 | External Medical Summary | Summary of Care ---
Author Name Unknown Organization [facility] Address [address] [place] [address] Phone [phone] Care Team Providers Care Order Expediter Name Role Phone Renata Waters MD Primary Care Provider [phone] Reason for Referral * Evaluate & Treat - Unlimited Visits (Within 10 days (routine)) - Authorized Specialty Diagnoses / Procedures Referred By Delia amaya Referred To Contact Speech Pathology / Speech Pathology Diagnoses Cognitive changes Megan Pino CRNP [address] [place] [address] Referral ID Status Reason Start Date Expiration Date Visits Requested Visits Authorized [id number] Authorized Specialty Services Required 12/31/2023 1 1 Question Answer Referral Priority Within 10 days (routine) Where should this appointment be scheduled? External Comments Cognitive rehabilitation Reason for Visit * Reason Comments Follow Up Encounter Details Date Type Department Care Team (Late st Contact Info) Description 12/31/2023 10:00 AM EDT Office Visit Neurology Emperatriz Lozano [place] [address] [place] [address] Megan Pino CRNP [address] [place] [address] Cognitive changes*; Transient alteration of awareness; Obstructive sleep apnea, adult; RONI (generalized anxiety disorder); Moderate episode of recurrent major depressive disorder (HCC) Allergies Active Allergy Reactions Criticality Noted [...] EVERY DAY NEEDED FOR ANXIETY 12/11/2023 Active risperiDONE 0.5 MG Oral Tablet (RisperDAL) Take 0.5 Tablets by mouth in the morning and 0.5 Tablets before bedtime. 04/14/2023 12/31/2023 Discontinued (Medication List Clean Up) documented as of this encounter (statuses as of 12/31/2023) Active Problems Problem Noted Date Diagnosed Date Encounter for therapeutic drug monitoring 2021 Schizophrenia 04/29/2021 BMI 38.0-38.9,adult 02/07/2021 Obstructive sleep apnea, adult 09/27/2017 Daytime sleepiness 06/01/2016 Gastroesophageal reflux disease 05/22/2015 RONI (generalized anxiety disorder) 05/22/2015 Rheumatoid arthritis of [facility] sites with negative rheumatoid factor Allergic sinusitis documented as of this encounter (statuses as of 12/31/2023) Resolved Problems Problem Noted Date Diagnosed Date Resolved Date BMI 40.0-44.9, adult 11/30/202205/13/ 023 documented as of this encounter (statuses [...] Sign Reading Time Taken Comments Blood Pressure 116/76 12/31/2023 9:53 AM EDT Pulse 82 12/31/2023 9:53 AM EDT Temperature 36.3 C (97.4 F) 12/31/2023 9:53 AM ED T Respiratory Rate 16 12/31/2023 9:53 AM EDT Oxygen Saturation 98% 12/31/2023 9:53 AM EDT Inhaled Oxygen Concentration - - Weight 138.4 kg (305 lb 1.6 oz) 12/31/2023 9:53 AM EDT Height - - Body Mass Index 40.25 2023 2:21 PM EST documented in this encounter Patient Instructions * Patient Instructions* Megan Pino CRNP - 12/31/2023 10:27 AM EDT Please schedule speech therapy appointment for cognitive rehabilitation. [place] Area: Contact info Speech Cog Rehab PT OT Other services Telemed? [facility] [address] [place] [address] ; SOCIAL SERVICES ASSISTANT FAX + + + + Concussion [facility] Speech and Language Therapy [address] [place] [address] FAX: [phone] + + 2. I ordered an EEG to further evaluate the episodes of losing time. 3. Please call to schedule pick-up for home sleep study equipment. 4. I will send a message Audiology to see if they can place referral for auditory processing evaluation. documented in this encounter Progress Notes * Megan Pino CRNP - 12/31/2023 9:59 AM EDT Images from the original note were not included. [facility] Memory and Cognition Program Return Visit Patient: Jose Agrawalrera Visit date: 12/31/2023 Dr. Ingram last saw patient on 09/24/2023 She is unaccompanied HISTORY OF PRESENT ILLNESS Mr. 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 In summary they have a history significant for obesity, severe ANUEL (Sleep Medicine in [place] on [address]. Can't tolerate CPAP), seronegative rheumatoid arthritis, ADHD, and depression. . They requested appointment because: I've been having [...] damage as a result of my attempt. Has ADHD few months ago by psychiatrist (in [place]). Attention has been poor since a kid. Started modafinil earlier this week. They carry a dx of schizoaffective bipolar type, which they report was determined to be false. Instead they have complex PTSD and ADHD. They follow with a psychiatrist Jose Grajeda in [place] at [place]. Patient is ok with sharing records with Dr. Grajeda. For suicide attempt, they were hospitalized at [facility]. They apparently called their mentor/professor who called [...] has never been neat. First language was Scottish (parents are [place]). They had social issues. Parents tried to get them tested for autism but he was NOT diagnosed. In [place], he had testing he met criteria for Asperger. 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 Sense of time is impaired. Onset since suicide attempt in 03/2023. Had neuropsychological testing on 08/13/2023 with Mikey Smith& donald in [facility] which showed. Previous Cognitive Testin09/24/2023 [facility] / Medications significant for: Clonidine 0.1 mg at HS Hydroxyzine 25 mg as needed anxiety Progesterone 100 mg daily Modafinil 100 mg daily Estradiol 4 mg BID Finasteride 5 mg daily Sprionolactone [address] Ingram's plan from the last visit was: Memory loss Suicide attempt (HCC) - MRI [...] Defer to them management of psychiatric comorbidities. Interval history: Continues to have trouble recognizing faces of people they knows. Has to use context clues to know who someone is sometimes. Has trouble recognizing sounds. Even voices of people that they know. Patient moved recently. Patient lives alone. Patient works and is enrolled in [employer]. 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 Working at [employer] which is a new job they just started last night. Patient was in contact with sleep medicine. They recommended home sleep study. Patient has to call to tow picker equipment to do home sleep study. Had MRI of brain 10/29/2023 which was normal. Per radiologist interpretation: FINDINGS The visualized brain parenchyma is normal. The scalp and calvarium are normal. The superior sagittal sinus demonstrates normal venous flow. The corpus callosum is normal in shape and signal intensity. The posterior fossa is unremarkable. The pituitary and sella are normal. The brainstem and craniocervical junction are unremarkable. Diffusion weighted images reveal no hyperintensities to suggest acute cerebral infarction. The susceptibility weighted sequences reveal no evidence of acute or chronic hemorrhage. The ventricles are normal in size and position without evidence of hydrocephalus. Mild mucosal thickening is seen throughout the paranasal sinuses. The visualized portions of the mastoids are unremarkable. The orbits appear normal.. IMPRESSION IMPRESSION Normal MRI study of the brain without intravenous contrast. No definite MRI findings to explain thepatient's symptoms Was seen by Audiology on 11/09/2023 and hearing examination was normal, but did not some difficulties with verbal directions and recommended auditory processing evaluation. States he hasn't done this. ED visits or hospitalizations? Yes admitted to [facility] on 12/06/2023 for treatment of suicidal ideations. Present to ER for evaluation of suicidal ideations. He thought about taking some of his pills but he did not. Was started on clonidine at , which seems to be helping with his mood. Tried Lamotrigine, but it was making him very drowsy so this was stopped. Denies current suicidal ideations, plan or intent. Patient seeing Lizzy Grajeda PA-C seeing him regularly, next appointment is sometime next week. And going to counseling once weekly at [facility] with Gaby Johnston. New diagnosis? No Medication changes? Yes, clonidine Cognition: feels that memory is about the same. Appetite and weight: decreased recently Sleep: wasn't sleeping well over the last 2 weeks from being hospitalized and trying to catch up schooling. This should improve after today when he takes his finals. Mood: +depression +anxiety +panic attacks No suicidal or homicidal ideations, plan or intent. Psychiatric and behavior symptoms: Hallucinations: no Delusions: no Paranoia: no OBJECTIVE Medical history, surgical history, social history, allergies and medications updated . Past Medical History: Diagnosis Date ADHD (attention [...] esophagitis, hiatal hernia, repeat 12 wks / [facility] LAPAROSCOPY; CHOLECYSTECTOMY 2015 [place] AMPUTATION TOE METATARSOPHALANGEAL JOINT Left 05/02/2023 5th digit, at [place] REPAIR OF NASAL SEPTUM Bilateral Social History Socioeconomic History Marital status: Single Spouse name: Not on file Number of children: Not on file Years of education: Not on file Highest education level: Not on file Occupational History Not on file Tobacco Use Smoking status: Some Days Current packs/day: 0.10 Average packs/day: 0.1 packs/day for 1 year (0.1 ttl pk-yrs) Types: Cigarettes Smokeless tobacco: Never Tobacco comments: only 1 cigarette when I have panic attacks, no more than 2 or 3 times a month Vaping Use Vaping status: Never Used Substance and Sexual Activity Alcohol use: Not Currently Alcohol/week: 1.0 standard drink of alcohol Types: 1 1.5 oz of liquor per week Comment: Rare Drug use: Yes Types: Marijuana Sexual activity: Never Other Topics Concern Not on file Social History Narrative Not on file Social Determinants of Health Financial Resource Strain: Not on file Food Insecurity: Not on file Transportation Needs: Not on file Social Connections: Unknown (11/09/2023) Social Connections How often do you feel lonely or isolated from those around you? (Adult - for ages 18 years and over): Not on file Housing Stability: At Risk (01/07/2023) Received from [facility] Housing Living Situation: Not on file Housing Problems: Not on file Family History Problem Relation Name Age of Onset Mental Disorder Mother Jose Mckeon anxiety Depression Mother Jose Mckeon Anxiety Disorder Mother Jose Mckeon Migraines Mother Jose Mckeon Neurological Disorder Father Darrell Agrawalrera Diabetes Father Darrell Agrawalrera type 1 Mental Disorder Father Darrell Mckeon anxiety Rheum arthritis Father Darrell Mckeon Anxiety Disorder Father Darrell Mckeon Migraines Father Darrell Mckeon Lupus Grandmother (Paternal) Breast Cancer Aunt (Paternal) Alzheimer's disease Grandfather (Paternal) Dad's Dad Review of patient's allergies indicates: Allergen Reactions Nsaids Tylenol [Acetaminophen] Zithromax [Azithromycin] rash Current Outpatient Medications Medication Sig Dispense Refill Cetirizine HCl 10 MG Oral Tablet Take 1 Tablet by mouth in the morning. cloNIDine HCl 0.1 MG Oral Tablet (Catapres) TAKE ONE TABLET BY MOUTH AT BEDTIME FOR ADHD Estradiol 2 MG Oral Tablet Take 2 Tablets by mouth in the morning and 2 Tablets before bedtime. Finasteride 5 MG Oral Tablet (Proscar) Take 1 Tablet by mouth in the morning. hydrOXYzine HCl 25 MG Oral Tablet TAKE 1 TABLET BY MOUTH EVERY DAY NEEDED FOR ANXIETY Modafinil 100 MG Oral Tablet (Provigil) Take 1 Tablet by mouth in the morning. Multi-Vitamins Oral Tablet Take 1 Tablet by mouth in the morning. (Patient not taking: Reported on 12/31/2023) Omeprazole 40 MG Oral Capsule Delayed Release (PriLOSEC) take 1 capsule by mouth every morning 90 Capsule 3 Progesterone 100 MG Oral Capsule (Prometrium) TAKE 1 CAPSULE BY MOUTH EVERY EVENING Spironolactone 50 MG Oral Tablet (Aldactone) Take 1 Tablet by mouth in the morning and 1 Tablet before bedtime. No current facility-administered medications for this visit. LABS: Results for orders placed or performed in [...] Vitamin B12 309 232 - 1,245 pg/mL No results found for: "MVQB42THT9" No results found for: "WPPJ33SCR2" No results found for: "TKOGMBBC29IX" 25-Hydroxy Vitamin D (ng/mL) Date Value 05/31/2021 36 Vitamin D Level Interpretation deficient: <20 ng/ml insufficient: 20-30 ng/ml normal: 31-100 ng/ml IMAGING STUDIES: See above under interval history PHYSICAL EXAM Vital signs: BP 116/76 | Pulse 82 | Temp 36.3 C (97.4 F) (Tympanic) | Resp 16 | Wt (!) 138.4 kg(305 lb 1.6 oz) | SpO2 98% | BMI 40.25 kg/m | BSA 2.67 m General: Well nourished. Appears as stated age. No acute distress. HEENT: normocephalic, atraumatic. Oral mucosa pink and moist. Neurologic exam Mental status: awake and alert +anxious Cranial Nerves: CN II- pupils are equally round and reactive to light bilaterally. Visual field intact in all quadrants bilaterally. CN III, IV, - Extra-ocular Movements Intact,no nystagmus CN V - Facial sensation intact and equal bilaterally CN VII - no facial assymetry CN VIII - Intact to normal conversation CN IX, X: Dysarthria: None CN XI- shoulder shrug intact bilaterally CN XII: tongue midline Motor: Bulk was Normal. Tremor: not present at rest, no intentional component, no postural abnormality Strength in upper extremities Lower extremities: Right Left Right Left Shoulder abduction 5/5 5/5 Hip flexion 5/5 5/5 Arm flexion 5/5 5/5 Knee flexion 5/5 5/5 Arm extension 5/5 5/5 Knee extension 5/5 5/5 Finger extension 5/5 5/5 Ankle dorsiflexion 5/5 5/5 Finger abduction 5/5 5/5 Ankle plantar flexion 5/5 5/5 Sensation: sensation normal to light touch bilateral upper and lower extremities Reflexes: Right Left Biceps 2+ 2+ Triceps 2+ 2+ Brachial radialis 2+ 2+ Patellar 2+ 2+ Achilles 1+ 1+ Coordination: Finger to Nose : slight dysmetria bilaterally Heel to [place]: intact bilaterally Gait: Rise from chair: intact, Toe walking: intact, Heel Walking: intact, and Romberg: negative, tandem gain intact, steady gait with normal arm swing and stride length bilaterally ASSESSMENT & PLAN Jose Mckeon is a 28 year old d right handed transgender adult with some college level educationpresenting for evaluation for memory decline since suicide attempt by OD a bottle of Ativan with alcohol in 03/2023. They have a history significant for obesity, severe ANUEL (Sleep Medicine in [place] on . Can't tolerate CPAP), seronegative rheumatoid arthritis, ADHD, and depression. They had a horrible year with multiple life stressors, and unfortunately was unsuccessful in finding psychiatric health at the expense of giving up his scholarship. Therefore they attempted suicide by OD, treated at [facility] with an ICU stay due to respiratory failure requiring intubation, cognitive by electrolyte abnormalities and osteomyelitis of left fifth toe s/p amputation. Since 03/2023 hospitalization, has had increased difficulty with his memory, namely not knowing how much time has elapsed. Has longstanding attention deficit since his childhood, only recently diagnosed and started modafinil for ADHD. They denied a diagnosis of schizoaffective disorder, bipolar type as hospital records indicated. Report that psychiatrist determined to be falls, and instead they have complex PTSD and ADHD. Since last visit he had MRI of brain that was normal. Was able to obtain report for neuropsych testing which showed difficulty with visual memory skills and visual attention and some aspects of executive functioning and visual tasks. Results were also reflective of depression and anxiety. Had audiology appointment in October which showed normal hearing, but did not some difficulties with verbal directions and recommended auditory processing evaluation, but wasn't scheduled for this. Was in touch with sleep medicine who recommended home sleep study, which patient hasn't done yet-needs to schedule appointment to tow picker supplies for home sleep study. Patient reports persistent problems with recognizing familiar faces and familiar sounds/voices. Sense of time continues to be impaired. Cognitive testing has been normal. Factors contributing to their cognitive impairment include longstanding, underlying psychiatric comorbidities (PTSD, Anxiety, Depression), ADHD that more recently started treatment, and obstructive sleep apnea that is untreated. Neurological exam was non-focal today. Will check routine EEG for further evaluation of loss of sense of time to rule out underlying seizure. Will refer to SOCIAL SERVICES ASSISTANT for cognitive rehabilitation. Patient encouraged to call sleep medicine to schedule time to tow picker equipment for home sleep study. I will send a message to Audiology to see if they can help him get set up for auditory processing evaluation. Encouraged to continue to follow-up regularly with psychiatrist and counselor. If they have suicidal or homicidal ideations they were advised to call 911 and present to the nearest emergency department. Avoid cognitive impairing medications, such as benzodiazepines, antihistamines, anticholinergic (e.g.e paroxetine), muscle relaxants, medications used for bladder spasm such as oxybutynin Plan Cognitive changes See above - SPEECH PATHOLOGY REFERRAL OP Transient alteration of awareness See above - EEG ROUTINE Obstructive sleep apnea, adult See above RONI (generalized anxiety disorder) See above Moderate episode of recurrent major depressive disorder (HCC) See above Follow Up: Return in about 4 months (around 05/01/2024) for Video to Home please schedule with Dr. Ingram on her [place] Schedule . | For: Video to Home please schedule with Dr. Ingram on her [place] Schedule | Check-out note: Please provide patient with copy of speech therapy referral order Routine EEG Patient Instructions Patient Instructions Please schedule speech therapy appointment for cognitive rehabilitation. [place] Area: Contact info Speech Cog Rehab PT OT Other services Telemed? [facility] [address] [place] [address] ; SOCIAL SERVICES ASSISTANT FAX + + + + Concussion [facility] Speech and Language Therapy [address] [place] [address] FAX: [phone] + + 2. I ordered an EEG to further evaluate the episodes of losing time. 3. Please call to schedule pick-up for home sleep study equipment. 4. I will send a message Audiology to see if they can place referral for auditory processing evaluation. I spent a total of 60 minutes coordinating, documenting, and providing care for this patient excluding time spent in the performance of separately billed services or time spent by another provider/QHP. TAYO Medrano Nurse Practitioner Neuroscience [facility] 12/31/2023 documented in this encounter Nursing Notes * Na Navarro MED ASSIST - 12/31/2023 9:51 AM EDT Chief Complaint Patient presents with Follow Up documented in this encounter Plan of Treatment Upcoming Encounters Date Type Department Care Team (Late st Contact Info) Description 01/05/2024 2:00 PM EDT NeuroDiagnostic Study Neurophysiology [facility] [address] [place] [address] Sp, Neurophys Tech [address] [facility] [place] [address] Scheduled Orders Name Type Priority Associated Diagnoses Orde r Schedule EEG ROUTINE Procedures Routine Transient alteration of awareness Ordered: 12/31/2023 Scheduled Referrals Name Type Priority Associated Diagnoses Orde r Schedule SPEECH PATHOLOGY REFERRAL OP Referral Within 10 days (routine) Cognitive changes Ordered: 12/31/2023 Health Maintenance Due Date Last [...] as of this encounter Visit Diagnoses Diagnosis Cognitive changes- Primary Other signs and symptoms involving cognition Transient alteration of awareness Obstructive sleep apnea, adult Obstructive sleep apnea (adult) (pediatric) RONI (generalized anxiety disorder) Generalized anxiety disorder Moderate episode of recurrent major depressive disorder (HCC) documented in this encounter Care Teams Order Expediter Relationship Specialty Start Date End Date Renata Waters MD [address] [facility] [place] [address] PCP - General Internal Medicine 05/10/21 documented as of this encounter
[2024-01-24 18:00] VITALS: O2SAT 99
[2024-01-24] MEDS: SPIRONOLACTONE 25 MG TAB PO SCH (20:34)
[2024-01-24] MEDS: estradioL 1 MG TAB PO SCH (20:36)
[2024-01-24] MEDS ORDERED: SPIRONOLACTONE 100 MG TAB PO SCH (22:00)
[2024-01-25] MEDS: FINASTERIDE 5 MG TAB PO SCH (08:48)
[2024-01-25] MEDS: modafiniL 100 MG TAB PO SCH (08:49)
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
[2024-01-25] MEDS ORDERED: CETIRIZINE HCL 10 MG TABLET PO PRN (10:30)
[2024-01-25] MEDS ORDERED: FINASTERIDE 5 MG TAB PO SCH (10:45)
[2024-01-25] MEDS ORDERED: modafiniL 100 MG TAB PO SCH (10:45)
[2024-01-25] MEDS ORDERED: estradioL 1 MG TAB PO SCH (10:45)
[2024-01-25] MEDS: PANTOprazole 40 MG TAB PO SCH (10:55)
[2024-01-25] MEDS: ACETAMINOPHEN 325 MG TAB PO PRN (13:59)
[2024-01-25] MEDS: GABAPENTIN 600 MG TAB PO STA (21:09)
[2024-01-25] MEDS: hydrOXYzine HCl 25 MG TAB PO PRN (23:41)
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
[2024-01-26] MEDS: CYCLOBENZAPRINE HCL 5 MG TAB PO PRN (12:49)
[2024-01-26] MEDS: PROGESTERONE 200 MG PO SCH (21:16)
[2024-01-26] MEDS ORDERED: diphenhydrAMINE 2%/ZINC 0.1% CREAM 28.4GM TUBE EXT PRN (21:35)
[2024-01-26] MEDS ORDERED: Nursing to Pharmacy Communication SCH (21:45)
[2024-01-26] MEDS: BACITRACIN OINT 14 GM TUBE EXT PRN (22:22)
[2024-01-27 01:02] VITALS: RESP 18; TEMP 97.9
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
[2024-01-27] MEDS: NICOTINE POLACRILEX 2 MG GUM MT PRN (10:29)
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
[2024-01-27 11:25] VITALS: BP 134/83; PULSE 51
[2024-01-27] MEDS ORDERED: PROGESTERONE 200 MG PO SCH (22:00)
== END 2024-01-27 12:04 | disposition home or self-care (01) | DRG 918 ==
LOC: 3S 17:00